=== PATIENT | female | born 1985 | race Caucasian/White ===

== ENCOUNTER 2023-02-09 01:11 | Emergency (ER) | payer MEDICAID, SELFPAY ==
[2023-02-09 01:22] VITALS: BP 167/92; PULSE 101; RESP 18; TEMP 36.6; O2SAT 98; BMI 29.2
--- NOTE | 2023-02-09 01:48 | RAD_ITS ---
INDICATION: pain EXAMINATION/TECHNIQUE: X-RAY - RIGHT XR Foot Min 3 Views 3 VIEWS COMPARISON: None FINDINGS: SOFT TISSUES: No soft tissue swelling or gas. No radiopaque foreign body. BONES/JOINTS: No acute fracture or subluxation.. Normal alignment. Preservation of the joint space. Small calcaneal Achilles enthesophyte. Minimal degenerative osteophyte formation at the proximal fifth interphalangeal joint. No sclerotic or destructive changes observed. RAD/Foot min 3 Views IMPRESSION: No acute finding. Small calcaneal Achilles enthesophyte.. Electronically Signed: Flavio Warner MD at 4:06 EST ,
--- NOTE | 2023-02-09 01:54 | EDS_ITS ---
HPI History of Present Illness Chief Complaint: Upper Extremity Injury Informant: patient Narrative Narrative: Patient presents to the ER 1:30 AM. She states she has had pain in her right foot for the past month. She denies any known injury. Hurts more to walk on that hurts without walking. For the last 3 to 4 days, she has had pain and numbness in her right forearm and into the hand, mostly at the radial aspect of her hand/fingers. Denies any known injury. Denies any neck pain, headache, vision trouble, facial neurologic symptoms, speech trouble. No paresthesias or weakness in the lower extremities. 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 She is on warfarin. She refers to [facility] when she states she was diagnosed with blood clots, but she does not know if she had DVT or arterial clot that led to amputation. She is a type I diabetic. She had an insulin pump that broke 3 to 4 days ago, and she states her glucose meter also broke so she has not been able to check her blood sugar recently. She states her was transferred here with regards to her job which is why they moved here 2 weeks ago, she saw PCP and a corporate travel manager for these issues in [place], but even though she has been there for 2 weeks has not researched any new physicians at all yet. [facility] Medical History (Updated 02/09/23 @ 05:[address] Babar Ribera MD) Abnormal angiogram HTN (hypertension) Hyperlipidemia Peripheral artery disease Type 1 diabetes mellitus Home Medications aspirin 81 mg tablet,delayed release (Adult Low Dose Aspirin) 81 mg PO DAILY 02/09/23 [History Last Taken Unknown] atorvastatin 40 mg tablet 40 mg PO DAILY 02/09/23 [History Last Taken Unknown] cyclobenzaprine 10 mg tablet 10 mg PO BID PRN muscle spasm 02/09/23 [History Last Taken Unknown] esomeprazole magnesium 20 mg capsule,delayed release 20 mg PO DAILY 02/09/23 [History Last Taken Unknown] metoprolol succinate 100 mg tablet,extended release 24 hr 100 mg PO DAILY 02/09/23 [History Last Taken Unknown] oxycodone-acetaminophen 5 mg-325 mg tablet 1 tab PO Q6H PRN PRN Pain 4 days #16 TABLETS 02/09/23 [Rx Last Taken Unknown] pantoprazole 40 mg granules delayed-release for susp in packet 40 mg PO DAILY 02/09/23 [History Last Taken Unknown] pregabalin 300 mg capsule (Lyrica) 300 mg PO BID 02/09/23 [History Last Taken Unknown] warfarin 5 mg tablet 15 mg PO DAILY 02/09/23 [History Last Taken 02/08/23] zolpidem 10 mg tablet 10 mg PO QHS PRN insomnia 02/09/23 [History Last Taken Unknown] Allergy/AdvReac Type Severity Reaction Status Date / Time morphine Allergy Intermediate Rash Verified 02/09/23 01:13 orange Allergy Rash Verified 02/09/23 01:13 Surgical History S/P BKA (below knee amputation) unilateral Social History Smoking Status: Never smoker ROS ROS ED Constitutional Constitutional ED: Denies chills or fever(s) Eyes Eyes: Denies change in vision or diplopia ENT ENT ED: Denies rhinorrhea or sore throat Cardiovascular Cardiovascular: Denies chest pain or palpitations Respiratory/Chest Respiratory/Chest: Denies cough or dyspnea Gastrointestinal Gastrointestinal: Denies abdominal pain, diarrhea, nausea or vomiting Genitourinary Genitourinary ED: Denies dysuria or hematuria Musculoskeletal Musculoskeletal: Reports extremity pain; Denies neck pain Integumentary Denies Abrasions, rash or wounds Neurologic Neurologic: Reports paresthesias RUE; Denies weakness Psychiatric Psychiatric: Denies suicidal thoughts EXAM Physical Exam Const Vital Signs: 02/09/23 01:22 Temperature 97.9 F Temperature Source Oral Pulse Rate 101 H Respiratory Rate 18 Blood Pressure 167/92 H Blood Pressure Mean 117 Pulse Ox 98 Oxygen Delivery Method Room Air Positive well nourished and well developed General Appearance ED: well developed and NAD HEENT Reports moist mucous membranes normocephalic and atraumatic Eyes PERRL and EOMs intact bilaterally Neck full ROM and supple Resp normal respiratory effort and clear to auscultation bilaterally Cardio regular rate, regular rhythm and no murmurs GI non-tender and non-distended Auscultation: normoactive bowel sounds Palpation: soft Back/Spine normal ROM and normal to inspection General Back: other FROM Extremity normal to inspection and full ROM Extremity Narrative: Right upper extremity: Superficial skin level tenderness with normal inspection right forearm and thumb and index finger. Sensation intact. Motor intact. All compartments soft and nondistended. Full range of motion of all joints without apparent discomfort. Status post left BKA with prosthesis in place. Right lower extremity: All compartment soft and nondistended, full range of motion. Normal coloration, pink. Brisk cap refill 2 seconds distally all toes. No signs of any necrotic tissue or wounds. Possibly mildly tender, patient cannot tell if it is worse or not with palpation, right great toe and fifth metatarsal laterally. Plantar foot normal on inspection. Not able to easily palpate dorsalis pedis pulse on right foot. Easily dopplerable. 2+/4 right radial pulse. General Extremety ED: Negative for edema General Extremity: Negative for edema Neuro oriented x3, no focal motor deficits and no sensory deficits noted Sensorium / Orientation: alert Motor Exam: strength 5/5 throughout Psych thought process normal Mood & Affect: anxious Skin no wounds Rashes: no rashes MDM MDM MDM Narrative Medical decision making narrative: At this time there is no objective evidence of any acute ischemic limb. Her exam is very benign and she is very anxious. Stress fracture of bones of the right foot in differential so x-ray obtained, 3 views on my interpretation negative for anything acute. She is perfusing toes well. With regards to her right upper extremity, radiculopathy or peripheral neuropathy with being in the differential here, but it is very difficult to evaluate her. She states that hurts both volarly and dorsally in the forearm, but she has more objective tenderness dorsally than anywhere else. A lot of times when I palpate different areas she cannot tell if it hurts worse or if it just hurts. She is neurovascularly intact distally objectively. All compartments are soft and nondistended. I do not think this is cerebral in etiology. Given her history of diabetes and the fact that she has no idea what her blood sugars have been, I did do some basic labs with an INR, which she last had checked 1-2 months ago, and gave her some IV fluids and something for pain. Initially offered her an oral Percocet but she refused this and wanted something IV, I gave her fentanyl. She wanted something more than that on reevaluation. Labs were delayed because she was a very difficult stick, and then because her blood was very lipemic, and lab requested a redraw. I reviewed her results. Therapeutic on her warfarin. She has mild hyperkalemia but this is due to moderate hemolysis she does not have acute renal insufficiency. She was hyperglycemic which we treated with insulin according to her sliding scale, this did come down some, she was given another dose of fentanyl for pain I see no reason to give her medicines like hydromorphone for basically what is not verifiable pain at this time, she does not appear to have be having acute ischemic pain or claudication. The pain in her right upper extremity suggests radiculopathy or peripheral neuropathy. I advised her I was happy to give her a second dose of fentanyl and prescribe her some short course of pain medication, and refer her to primary care, cardiology, and vascular, all of whom she saw in [place]. She is appreciative of that and is agreeable with this plan. Lab Data Attestation: I reviewed the patient's lab results. Labs: Impressions Foot X-Ray 02/09/23 01:48 IMPRESSION: No acute finding. Small calcaneal Achilles enthesophyte.. Electronically Signed: Flavio Warner MD at 4:06 EST Reading Location ID and State: [facility] / [place] Tel , Service support , 02/09/23 01:48 Foot min 3 Views [RAD] Stat Laboratory Results 02/09/23 02/09/23 02/09/23 03:20 03:35 04:05 WBC 7.0 RBC 6.23 H Hgb 15.9 H Hct 44.7 MCV 71.7 L MCH 25.5 L MCHC 35.6 RDW Std Deviation 49.1 H RDW Coeff of Gerard 20.8 H Plt Count 250 MPV TNP Immature Gran % (Auto) 0.300 Neut % (Auto) 69.4 Lymph % (Auto) 23.6 [place] % (Auto) 5.0 Eos % (Auto) 1.0 Baso % (Auto) 0.7 Absolute Neuts (auto) 4.9 Absolute Lymphs (auto) 1.65 Nucleated RBC % 0 Differential Comment SCANNED Anisocytosis 1+ PT 25.0 H INR 2.2 Sodium 130 L Potassium 5.2 H Chloride 96 L Carbon Dioxide 23.0 Anion Gap 11 BUN 10 Creatinine 0.75 Estim Creat Clear Calc 97.08 Est GFR (MDRD) Af Amer 112 Est GFR (MDRD) Non-Af 93 BUN/Creatinine Ratio 13.3 Glucose 415 H Calcium 8.3 L POC Glucose 389 H Discharge Plan Triage Chief Complaint: Upper Extremity Injury ED Provider: Babar Ribera Dx/Rx/DC Orders Clinical Impression: Neuropathic pain of upper extremity, History of peripheral arterial disease, Pain in right foot, Warfarin-induced coagulopathy Instructions: Treating Peripheral Neuropathy Prescriptions: New oxycodone-acetaminophen [oxycodone-acetaminophen] 5-325 mg tablet 1 tab PO Q6H PRN PRN (Reason: Pain) 4 Days Qty: 16 0RF No Action warfarin 5 mg tablet 15 mg PO DAILY cyclobenzaprine 10 mg tablet 10 mg PO BID PRN (Reason: muscle spasm) atorvastatin 40 mg tablet 40 mg PO DAILY pregabalin [Lyrica] 300 mg capsule 300 mg PO BID pantoprazole [address] for susp in packet 40 mg PO DAILY zolpidem 10 mg tablet 10 mg PO QHS PRN (Reason: insomnia) metoprolol succinate 100 mg tablet extended release 24 hr 100 mg PO DAILY esomeprazole magnesium 20 mg capsule,delayed release(DR/EC) 20 mg PO DAILY aspirin [Adult Low Dose Aspirin] 81 mg tablet,delayed release (DR/EC) 81 mg PO DAILY Primary Care Provider: Care Physician,No Primary Referrals: Rehana Tristan MD [Med Staff - Resource Center Teacher] - (primary care) Sergio Sutherland MD [Med Staff - Active Staff] - Judith Krishna MD [Med Staff - Active Staff] - Care Physician,No Primary [Primary Care Provider] - Disposition Disposition: Home, Self Care
[2023-02-09 03:28] LABS: Absolute Lymphocyte Count 1.65 X10^3/uL (0.83-4.51); Absolute Neutrophil Count 4.9 X10^3/uL (2.0-7.7); Basophil# 0.05 X10^3/uL; Basophil% 0.7 % (0-1); Eosinophil# 0.07 X10^3/uL; Hematocrit 44.7 % (37-47); Hemoglobin 15.9 g/dL (12.0-15.0); Lymphocyte # 1.65 X10^3/ul (0.83-4.51); Lymphocyte % 23.6 % (19-41); Mean Corp Hgb Conc 35.6 g/dL (32-36); Mean Corpuscular Hgb 25.5 pg (27.0-32.0); Mean Corpuscular Volume 71.7 fL (81-99); Monocyte# 0.35 X10^3/uL; NRBC Flagged by Analyzer 0 % (0-5); Neutrophil # 4.86 X10^3/uL (2.7-7.7); Neutrophil % 69.4 % (47-70); POSITIVE MORPHOLOGY YES; Platelet Count 250 K/mm3 (150-450); RBC Distribution Width CV 20.8 % (11.6-14.6); RBC Distribution Width SD 49.1 fl (35.1-43.9); Red Blood Count 6.23 M/mm3 (4.2-5.4)
[2023-02-09] MEDS: 0.9% Normal Saline (500mL Bag) 500 ML 999 ML IV (03:32)
[2023-02-09 03:35] LABS: International Normalized Ratio 2.2
[2023-02-09 03:55] LABS: Bedside Glucose 389 mg/dL (74-106)
[2023-02-09] MEDS: fentaNYL 100 MCG/2 ML Ampul 50 MCG IV (04:22)
[2023-02-09] MEDS: Insulin Lispro 100 UNIT/ML INSULN.PEN 20 UNIT SC (04:24)
[2023-02-09 04:27] LABS: Anisocytosis 1+; Differential Comment SCANNED
[2023-02-09 04:46] LABS: Anion Gap 11 (5-15); BUN 10 mg/dL (7-18); BUN/Creat Ratio 13.3 RATIO (10-20); Calcium,Total 8.3 mg/dL (8.5-10.1); Chloride 96 mmol/L (98-107); Creatinine, Serum 0.75 mg/dL (0.55-1.02); EST Glomerular Filtration Rate 93 mL/min (>60); Est Glom Filt Rate - Afr Amer 112 mL/min (>60); Estimated Creatinine Clearance 97.08 ml/min; Glucose 415 mg/dL (74-106); Potassium 5.2 mmol/L (3.5-5.1); Sodium Level 130 mmol/L (136-145)
[2023-02-09 05:17] LABS: Bedside Glucose 368 mg/dL (74-106)
[2023-02-09] MEDS: fentaNYL 100 MCG/2 ML Ampul 75 MCG IV (05:41)
[2023-02-09 05:44] VITALS: BP 170/94; PULSE 90; RESP 15; O2SAT 98
== END 2023-02-09 05:52 | disposition home or self-care (01) ==
PROVIDERS: Emergency Provider Emergency Medicine; Visit Provider Emergency Medicine
DX: E10.40 Type 1 diabetes mellitus with diabetic neuropathy, unspecified (principal); E10.51 Type 1 diabetes mellitus with diabetic peripheral angiopathy without gangrene; M79.671 Pain in right foot; E78.5 Hyperlipidemia, unspecified; I10 Essential (primary) hypertension; R79.1 Abnormal coagulation profile; Z79.82 Long term (current) use of aspirin; Z79.899 Other long term (current) drug therapy; Z79.01 Long term (current) use of anticoagulants
CPT/HCPCS: 73630; 80048; 82962; 85025; 85610; 96374; 96376; 99283; A4216

== ENCOUNTER 2023-02-28 20:35 | Emergency (ER) | payer MEDICAID, SELFPAY ==
[2023-02-28 20:40] VITALS: BP 210/102; PULSE 79; RESP 18; TEMP 36; O2SAT 99; BMI 27.8
--- NOTE | 2023-02-28 21:07 | RAD_ITS ---
STUDY: X-RAY - LUMBAR SPINE REASON FOR EXAM: Female, 37 years old. trauma TECHNIQUE: 3 view(s) of the lumbar spine were obtained. COMPARISON: None FINDINGS: Normal lumbar lordosis. There is no substantial scoliosis. There is a normal alignment of the vertebrae. Normal vertebral bodies and endplates. Normal disc space heights. The soft tissue structures are unremarkable. RAD/Lumbar Spine 2 or 3 Views IMPRESSION: Normal x-ray examination of the lumbar spine. Electronically Signed: Feliberto Reyes MD at 22:37 EST ,
--- NOTE | 2023-02-28 21:07 | EKG12_ITS ---
Test Reason : DYSRHYTHMIA Blood Pressure : / mmHG Vent. Rate : 072 BPM Atrial Rate : 072 BPM P-R Int : 118 ms QRS Dur : 088 ms QT Int : 376 ms P-R-T Axes : 053 070 056 degrees QTc Int : 411 ms Normal sinus rhythm Normal ECG Confirmed by JENNIFER HANNON, AUTUMN ([id number]), associate entertainment editor ОЛЬГА MEJIA ([id number]) on 03/02/2023 9:22:03 AM Referred By: Confirmed By:AUTUMN RODRIGUEZ MD
--- NOTE | 2023-02-28 21:09 | EDS_ITS ---
HPI History of Present Illness Chief Complaint: Back Informant: patient Narrative Narrative: Patient presents with primary complaint of lower back pain. Patient states that about a week ago she slipped and fell onto her buttock. She hurt her back. It has been sore since. No new numbness tingling or weakness. She states she slipped because she has a left BKA and sometimes has instability. She is also had sciatica before. No fevers or chills. However the patient also has other issues. She recently just moved. Her insulin pump broke. She has been out of also all of her medicines for 3 days. This includes her Coumadin. She has not been using insulin subcu. Her meter has been reading high. She is also out of her metoprolol. 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 Patient had recently moved from [place]. I note that she was here about 2- 1/2 weeks ago. Her glucose pump is broken then to. But she tells me it just broke 3 days ago. She may have had a second pump. She does not have a local primary doctor. [facility] Medical History (Updated 02/28/23 @ 23:[address] Abad Dickson MD) Abnormal angiogram HTN (hypertension) Hyperlipidemia Peripheral artery disease Type 1 diabetes mellitus Home Medications aspirin 81 mg tablet,delayed release (Adult Low Dose Aspirin) 81 mg PO DAILY 02/09/23 [History Last Taken Unknown] atorvastatin 40 mg tablet 40 mg PO DAILY 02/09/23 [History Last Taken Unknown] cyclobenzaprine 10 mg tablet 10 mg PO BID PRN muscle spasm 02/09/23 [History Last Taken Unknown] esomeprazole magnesium 20 mg capsule,delayed release 20 mg PO DAILY 02/09/23 [History Last Taken Unknown] metoprolol succinate 100 mg tablet,extended release 24 hr 100 mg PO DAILY 02/09/23 [History Last Taken Unknown] pantoprazole 40 mg granules delayed-release for susp in packet 40 mg PO DAILY 02/09/23 [History Last Taken Unknown] pregabalin 300 mg capsule (Lyrica) 300 mg PO BID 02/09/23 [History Last Taken Unknown] warfarin 5 mg tablet 15 mg PO DAILY 02/09/23 [History Last Taken 02/08/23] zolpidem 10 mg tablet 10 mg PO QHS PRN insomnia 02/09/23 [History Last Taken Unknown] insulin lispro 100 unit/mL subcutaneous cartridge (Humalog U-100 Insulin) 1 - 100 unit subcut DAILY 02/28/23 [History Last Taken Unknown] atorvastatin 40 mg tablet 40 mg PO DAILY #30 tabs 03/01/23 [Rx Last Taken Unknown] cyclobenzaprine 10 mg tablet 10 mg PO TID PRN Muscle Spasm #20 TABLETS 03/01/23 [Rx Last Taken Unknown] esomeprazole magnesium 20 mg capsule,delayed release (Nexium 24HR) 20 mg PO DAILY #30 caps 03/01/23 [Rx Last Taken Unknown] hydrocodone-acetaminophen 5-325mg 5mg-325mg 1 tab PO Q6H PRN PRN Pain 3 days #10 TABLETS 03/01/23 [Rx Last Taken Unknown] insulin lispro 100 unit/mL subcutaneous pen 10 unit (0.1 mL) subcut TID #15 mL 03/01/23 [Rx Last Taken Unknown] metoprolol succinate 100 mg tablet,extended release 24 hr (Toprol XL) 100 mg PO DAILY #30 tabs 03/01/23 [Rx Last Taken Unknown] pregabalin 300 mg capsule 300 mg PO BID #60 caps 03/01/23 [Rx Last Taken Unknown] warfarin 5 mg tablet 15 mg (3 x 5 mg) PO DAILY #90 tabs 03/01/23 [Rx Last Taken Unknown] Allergy/AdvReac Type Severity Reaction Status Date / Time morphine Allergy Intermediate Rash Verified 02/28/23 20:36 orange Allergy Rash Verified 02/28/23 20:36 Surgical History S/P BKA (below knee amputation) unilateral Social History Smoking Status: Never smoker ROS ROS ED Constitutional Constitutional ED: Denies chills or fever(s) Eyes Eyes: Denies change in vision ENT ENT ED: Denies rhinorrhea or sore throat Cardiovascular Cardiovascular: Denies chest pain or palpitations Respiratory/Chest Respiratory/Chest: Denies dyspnea or sputum Gastrointestinal Gastrointestinal: Reports nausea and other Details: Patient states she has occasional nausea but that might be from discomfort. She does not feel like this is DKA. ; Denies abdominal pain or vomiting Genitourinary Genitourinary ED: Reports urinary frequency; Denies dysuria or hematuria Musculoskeletal Musculoskeletal: Reports back pain Integumentary Denies rash Neurologic Neurologic: Reports paresthesias; Denies headache(s) Endocrine Endocrinology: Denies polydipsia or polyuria Hematologic/Lymphatic Hematologic/Lymphatic: Denies easy bleeding or easy bruising Allergic/Immunologic Allergic/Immunologic ED: Denies urticaria EXAM Physical Exam Narrative Exam Narrative: CONSTITUTIONAL: Patient is nontoxic in appearance. The patient looks comfortable. HEENT: No notable trauma. Mucous membranes do look dry. No sinus tenderness. No indication of pain with swallowing. No erythema. EYES: No conjunctival injection. No proptosis. CARDIOVASCULAR: Regular rate. Regular rhythm. No notable murmur. No JVD. RESPIRATORY: No respiratory distress. Breathing is unlabored. No wheezes. No rhonchi. No rales. No pain with a deep breath. She is not tachypneic. GASTROINTESTINAL: Not distended. Bowel sounds are normal. No tenderness. No guarding. No rebound. No palpable mass. No bruit. GENITOURINARY: No tenderness over the bladder. No CVA tenderness. MUSCULOSKELETAL: No swelling or trauma. She does have some tenderness to the lower lumbar area central as well as both sides. NEUROLOGICAL: Patient is alert and appropriate. No focal deficit noted. SKIN: No noted rashes. No diaphoresis. PSYCHIATRIC: Patient is calm. Mood is appropriate. Const Vital Signs: 02/28/23 20:40 02/28/23 22:32 02/28/23 22:34 Temperature 96.8 F L Temperature Source Temporal Pulse Rate 79 68 Respiratory Rate 18 16 Blood Pressure 210/102 H 180/96 H Blood Pressure Mean 138 124 Pulse Ox 99 98 Oxygen Delivery Method Room Air MDM MDM MDM Narrative Medical decision making narrative: My independent interpretation of the patient's three-view x-ray of the lumbar spine shows no sign of acute fracture or dislocation. Mild straightening. Final reading is pending. Patient's CBC shows mild elevation in the hemoglobin that may be due to hemoconcentration. Acetone level shows a small amount. But she also has not really been eating today. Patient's coagulation studies and metabolic panel were canceled due to difficulty running them. They are being redrawn at this time. Final reading of lumbar spine did come back negative. We were having trouble getting the patient's labs back. Her blood sugar read high at home. This is normally over 350 and occasionally over 500. But when we checked it it was only about 308. I will get her some insulin here. She has gotten IV fluids. We are pending her metabolic panel. Since urine out this is showed no sign of infection. She did have increased glucose and increase of ketones. Basic metabolic panel shows elevated glucose at 408 which is higher than our stick. Sodium is slightly low but some of this is factitious. Her anion gap and bicarb are normal leaning heavily against DKA. She does have some ketosis likely from not eating. Her lactate is pending at this time. Patient's INR is normal at 0.7. Patient's lactic acid level is not able to be obtained. They have tried to run it. Because the patient has high cholesterol her serum is to like hemic to get an accurate reading. They will try to run it again but there are questions of its accuracy. Since the patient is eating and drinking, has normal bicarb and gap, I do not think this need to be needed at this time. We will get her something for her pains. I will write for her medications. But she is strongly encouraged to call to get an appointment with her primary care physician. She has been in this area for about 5 weeks with multiple complex medical illnesses. I will help her with prescriptions but she still needs ongoing primary care and specialty follow-up. I will refer her to the same physician she was referred to on her last visit. Patient's lactate is not able to be run. She has pain and we will get her meds for this. But she did fall about a week ago. She is eating and drinking without vomiting. She has no gap. Bicarb is normal. I do not think this represents DKA even though she has slight ketones. Lab Data Attestation: I reviewed the patient's lab results. Labs: Laboratory Results - last 24 hr 02/28/23 02/28/23 02/28/23 21:34 22:04 22:48 WBC 5.1 RBC 5.96 H Hgb 15.1 H Hct 44.0 MCV 73.8 L MCH 25.3 L MCHC 34.3 RDW Std Deviation 45.6 H RDW Coeff of Gerard 18.2 H Plt Count 183 MPV 11.2 Immature Gran % (Auto) 0.400 Neut % (Auto) 51.9 Lymph % (Auto) 40.2 [place] % (Auto) 5.3 Eos % (Auto) 1.2 Baso % (Auto) 1.0 Absolute Neuts (auto) 2.6 Absolute Lymphs (auto) 2.04 Nucleated RBC % 0 PT Cancelled 10.1 L INR Cancelled 0.7 Sodium Cancelled 131 L Potassium Cancelled 4.1 Chloride Cancelled 99 Carbon Dioxide Cancelled 23.0 Anion Gap Cancelled 9 BUN Cancelled 10 Creatinine Cancelled 0.52 L Estim Creat Clear Calc Cancelled 140.01 Est GFR (MDRD) Af Amer Cancelled 170 Est GFR (MDRD) Non-Af Cancelled 140 BUN/Creatinine Ratio Cancelled 19.1 Glucose Cancelled 408 H Lactic Acid Cancelled Calcium Cancelled 7.6 L Urine Color Straw Urine Clarity Clear Urine pH 6.5 Ur Specific [place] 1.010 Urine Protein 30 H Urine Glucose (UA) 1000 H Urine Ketones 50 H Urine Occult Blood Negative Urine Nitrite Negative Urine Bilirubin Negative Urine Urobilinogen Normal Ur Leukocyte Esterase Negative Urine RBC 0 SEEN Urine WBC 0-5 SEEN Ur Squamous Epith Cells 0-5 SEEN Urine Bacteria 0 SEEN Urine Mucus 0 SEEN Acetone Level SMALL H POC Glucose 02/28/23 23:07 WBC RBC Hgb Hct MCV MCH MCHC RDW Std Deviation RDW Coeff of Gerard Plt Count MPV Immature Gran % (Auto) Neut % (Auto) Lymph % (Auto) [place] % (Auto) Eos % (Auto) Baso % (Auto) Absolute Neuts (auto) Absolute Lymphs (auto) Nucleated RBC % PT INR Sodium Potassium Chloride Carbon Dioxide Anion Gap BUN Creatinine Estim Creat Clear Calc Est GFR (MDRD) Af Amer Est GFR (MDRD) Non-Af BUN/Creatinine Ratio Glucose Lactic Acid Calcium Urine Color Urine Clarity Urine pH Ur Specific [place] Urine Protein Urine Glucose (UA) Urine Ketones Urine Occult Blood Urine Nitrite Urine Bilirubin Urine Urobilinogen Ur Leukocyte Esterase Urine RBC Urine WBC Ur Squamous Epith Cells Urine Bacteria Urine Mucus Acetone Level POC Glucose 305 H Radiography Diagnostic Testing: Clinical Impression(s) from Imaging Studies Lumbar Spine X-Ray 02/28/23 21:07 IMPRESSION: Normal x-ray examination of the lumbar spine. Electronically Signed: Feliberto Reyes MD at 22:37 EST , EKG Initial EKG: Comments: My independent interpretation of the patient's EKG shows a n ormal sinus rhythm with a rate of 72. No ectopy. No acute ST elevation or depression. [place] interval, QRS duration and QTc are normal. Discharge Plan Triage Chief Complaint: Back Other Complaint: Lower Extremity Injury ED Provider: Abad Dickson Dx/Rx/DC Orders Clinical Impression: History of diabetes mellitus, type I, Lower back pain, Fall from slip, trip, or stumble, Hyperglycemia, Diabetic neuropathy Instructions: ED Back Pain (Acute or Chronic), Diabetic Neuropathy Prescriptions: New cyclobenzaprine 10 mg tablet 10 mg PO TID PRN (Reason: Muscle Spasm) Qty: 20 0RF atorvastatin 40 mg tablet 40 mg PO DAILY Qty: 30 0RF esomeprazole magnesium [Nexium 24HR] 20 mg capsule,delayed release(DR/EC) 20 mg PO DAILY Qty: 30 0RF metoprolol succinate [Toprol XL] 100 mg tablet extended release 24 hr 100 mg PO DAILY Qty: 30 0RF pregabalin 300 mg capsule 300 mg PO BID Qty: 60 0RF warfarin 5 mg tablet 15 mg PO DAILY Qty: 90 0RF insulin lispro 100 unit/mL insulin pen 10 unit subcut TID Qty: 15 0RF Rx Instructions: follow your sliding scale hydrocodone-acetaminophen [hydrocodone-acetaminophen] 5-325 mg tablet 1 tab PO Q6H PRN PRN (Reason: Pain) 3 Days Qty: 10 0RF No Action warfarin 5 mg tablet 15 mg PO DAILY Patient Comments: Out of medication. cyclobenzaprine 10 mg tablet 10 mg PO BID PRN (Reason: muscle spasm) Patient Comments: Out of medication. atorvastatin 40 mg tablet 40 mg PO DAILY Patient Comments: Out of medication. pregabalin [Lyrica] 300 mg capsule 300 mg PO BID Patient Comments: Out of medication. pantoprazole [address] for susp in packet 40 mg PO DAILY Patient Comments: Out of medication. zolpidem 10 mg tablet 10 mg PO QHS PRN (Reason: insomnia) Patient Comments: Out of medication. metoprolol succinate 100 mg tablet extended release 24 hr 100 mg PO DAILY Patient Comments: Out of medication. esomeprazole magnesium 20 mg capsule,delayed release(DR/EC) 20 mg PO DAILY Patient Comments: Out of medication. aspirin [Adult Low Dose Aspirin] 81 mg tablet,delayed release (DR/EC) 81 mg PO DAILY Patient Comments: Out of medication. Humalog U-100 Insulin 100 unit/mL cartridge 1 - 100 unit subcut DAILY Patient Comments: Pump. Currently pump is broken and is out of medication. Primary Care Provider: Care Physician,No Primary Referrals: Rehana Tristan MD [Med Staff - Laboratory Development Technician] - As soon as possible (Please ca ll in the morning for an appointment as soon as possible.) Sergio Sutherland MD [Med Staff - Active Staff] - 1-2 Weeks Judith Krishna MD [Med Staff - Active Staff] - As soon as possible Care Physician,No Primary [Primary Care Provider] - Disposition Disposition: Home, Self Care
[2023-02-28 21:42] LABS: Absolute Lymphocyte Count 2.04 X10^3/uL (0.83-4.51); Absolute Neutrophil Count 2.6 X10^3/uL (2.0-7.7); Basophil# 0.05 X10^3/uL; Eosinophil# 0.06 X10^3/uL; Eosinophils% 1.2 % (0-5); Hemoglobin 15.1 g/dL (12.0-15.0); Lymphocyte # 2.04 X10^3/ul (0.83-4.51); Lymphocyte % 40.2 % (19-41); Mean Corp Hgb Conc 34.3 g/dL (32-36); Mean Corpuscular Hgb 25.3 pg (27.0-32.0); Mean Corpuscular Volume 73.8 fL (81-99); Mean Platelet Vol. 11.2 fl (6.2-12.0); Monocyte# 0.27 X10^3/uL; Monocyte% 5.3 % (0-10); NRBC Flagged by Analyzer 0 % (0-5); Neutrophil # 2.64 X10^3/uL (2.7-7.7); Neutrophil % 51.9 % (47-70); Platelet Count 183 K/mm3 (150-450); RBC Distribution Width CV 18.2 % (11.6-14.6); RBC Distribution Width SD 45.6 fl (35.1-43.9); Red Blood Count 5.96 M/mm3 (4.2-5.4); White Blood Count 5.1 K/mm3 (4.4-11.0)
[2023-02-28] MEDS: 0.9% Normal Saline (1000mL) 1,000 ML 1000 ML IV (21:42)
[2023-02-28] MEDS: Ondansetron 4 MG/2 ML Vial IV (21:43)
[2023-02-28 22:09] LABS: Bacteria 0 SEEN /hpf (None Seen); Mucous, Urine 0 SEEN /hpf (<or=2+); Red Blood Cells-Urine 0 SEEN /hpf (0-5)
[2023-02-28 22:32] VITALS: PULSE 68; RESP 16; O2SAT 98
[2023-02-28 22:34] VITALS: BP 180/96
[2023-02-28 22:48] LABS: Color, Urine Straw (Yellow); Glucose, Dipstick 1000 mg/dl (Normal); Ketone-Dipstick 50 mg/dl (Negative); Leukocyte Esterase-Dipstick Negative /ul (Negative); Nitrite-Dipstick Negative (Negative); Occult Blood-Urine Negative /ul (Negative); Protein-Dipstick 30 mg/dl (Negative); Urine Bilirubin Dipstick Negative (Negative); Urine Clarity Clear (Clear); Urine Urobilinogen Normal (Normal); Urine pH 6.5 (5.0 - 8.0)
[2023-02-28] MEDS: fentaNYL 100 MCG/2 ML Ampul 25 MCG IV (22:53)
[2023-02-28 22:54] LABS: Squamous Epithelial Cells - UA 0-5 SEEN /hpf (5-10); White Blood Cells 0-5 SEEN /hpf (0-5)
[2023-02-28 23:10] LABS: International Normalized Ratio 0.7; Prothrombin Time (Protime)PT. 10.1 SECONDS (11.7-14.9)
[2023-02-28 23:19] LABS: Anion Gap 9 (5-15); BUN 10 mg/dL (7-18); BUN/Creat Ratio 19.1 RATIO (10-20); Calcium,Total 7.6 mg/dL (8.5-10.1); Chloride 99 mmol/L (98-107); Creatinine, Serum 0.52 mg/dL (0.55-1.02); EST Glomerular Filtration Rate 140 mL/min (>60); Est Glom Filt Rate - Afr Amer 170 mL/min (>60); Estimated Creatinine Clearance 140.01 ml/min; Glucose 408 mg/dL (74-106); Potassium 4.1 mmol/L (3.5-5.1); Sodium Level 131 mmol/L (136-145)
[2023-02-28 23:25] LABS: Bedside Glucose 305 mg/dL (74-106)
[2023-02-28] MEDS: cycloBENZAPRine HCl 10 MG Tablet PO (23:35)
[2023-02-28] MEDS: Insulin Lispro 100 UNIT/ML INSULN.PEN 10 UNIT SC (23:35)
[2023-02-28] MEDS: Pregabalin 75 MG Capsule 150 MG PO (23:43)
[2023-03-01] MEDS: fentaNYL 100 MCG/2 ML Ampul 25 MCG IV (00:43)
[2023-03-01] MEDS: Ketorolac 15 MG/ML Vial IV (00:43)
[2023-03-01 00:49] VITALS: BP 170/65; PULSE 69; RESP 17; O2SAT 98
== END 2023-03-01 00:50 | disposition home or self-care (01) ==
PROVIDERS: Emergency Provider Emergency Medicine; Visit Provider Emergency Medicine
DX: E10.65 Type 1 diabetes mellitus with hyperglycemia (principal); E10.40 Type 1 diabetes mellitus with diabetic neuropathy, unspecified; Z79.4 Long term (current) use of insulin; M54.50 Low back pain, unspecified; Z96.41 Presence of insulin pump (external) (internal); E78.00 Pure hypercholesterolemia, unspecified; I10 Essential (primary) hypertension; Z79.82 Long term (current) use of aspirin; Z79.899 Other long term (current) drug therapy; Z79.01 Long term (current) use of anticoagulants
CPT/HCPCS: 83605; 72100; 80048; 81001; 82009; 82962; 85025; 85610; 93005; 96361; 96374; 96375; 96376; 99284; J7030; A4216; J2405

== ENCOUNTER 2023-03-12 13:34 | Inpatient (IN) | payer MEDICAID, SELFPAY ==
[2023-03-12] VITALS (13 sets, daily range): BP systolic 131–170; BP diastolic 71–101; PULSE 108–140; RESP 17–34; TEMP 35.9–36.9; O2SAT 99–100; BMI 29.0; BMI 23.1
--- NOTE | 2023-03-12 13:50 | EKG12_ITS ---
Test Reason : GENERAL Blood Pressure : / mmHG Vent. Rate : 124 BPM Atrial Rate : 124 BPM P-R Int : 134 ms QRS Dur : 086 ms QT Int : 326 ms P-R-T Axes : 078 079 262 degrees QTc Int : 468 ms Sinus tachycardia Right atrial enlargement T wave abnormality, consider inferior ischemia T wave abnormality, consider anterolateral ischemia Abnormal ECG Confirmed by CHRISTIANO HANNON, ASHUTOSH ([id number]), staff editor ОЛЬГА MEJIA ([id number]) on 03/20/2023 6:46:47 AM Referred By: Confirmed By:JUSTIN ALVARADO MD
[2023-03-12] MEDS: 0.9% Normal Saline (1000mL) 1,000 ML 1000 ML IV ×3 (14:00→17:09)
[2023-03-12 14:02] LABS: Bedside Glucose 489 mg/dL (74-106)
[2023-03-12 14:48] LABS: Bacteria 0 SEEN /hpf (None Seen); Mucous, Urine 0 SEEN /hpf (<or=2+); White Blood Cells 0 SEEN /hpf (0-5)
[2023-03-12 14:50] LABS: Color, Urine Yellow (Yellow); Glucose, Dipstick 1000 mg/dl (Normal); Ketone-Dipstick 150 mg/dl (Negative); Leukocyte Esterase-Dipstick Negative /ul (Negative); Nitrite-Dipstick Negative (Negative); Occult Blood-Urine 250 /ul (Negative); Protein-Dipstick 30 mg/dl (Negative); Specific Gravity, Urine 1.025 (1.002-1.030); Urine Bilirubin Dipstick Negative (Negative); Urine Clarity Sl. Cloudy (Clear); Urine Urobilinogen Normal (Normal)
[2023-03-12 14:50] LABS: Absolute Lymphocyte Count 1.72 X10^3/uL (0.83-4.51); Absolute Neutrophil Count 8.8 X10^3/uL (2.0-7.7); Basophil# 0.02 X10^3/uL; Basophil% 0.2 % (0-1); Eosinophil# 0.03 X10^3/uL; Eosinophils% 0.3 % (0-5); Hematocrit 53.4 % (37-47); Lymphocyte # 1.72 X10^3/ul (0.83-4.51); Lymphocyte % 15.5 % (19-41); Mean Corp Hgb Conc 33.7 g/dL (32-36); Mean Corpuscular Hgb 24.8 pg (27.0-32.0); Mean Corpuscular Volume 73.7 fL (81-99); Mean Platelet Vol. 10.7 fl (6.2-12.0); Monocyte# 0.52 X10^3/uL; Monocyte% 4.7 % (0-10); NRBC Flagged by Analyzer 0 % (0-5); Neutrophil # 8.75 X10^3/uL (2.7-7.7); Neutrophil % 78.9 % (47-70); Platelet Count 447 K/mm3 (150-450); RBC Distribution Width CV 19.3 % (11.6-14.6); RBC Distribution Width SD 47.1 fl (35.1-43.9); Red Blood Count 7.25 M/mm3 (4.2-5.4); White Blood Count 11.1 K/mm3 (4.4-11.0)
--- NOTE | 2023-03-12 14:50 | EX.ED.DYSGE1 ---
HPI History of Present Illness Chief Complaint: Hyperglycemia Informant: patient Onset/Context/Timing Onset: Days (4) Context: Gradual Onset Timing: Continuous Quality: Sharp Location: Chest and back Worsened by: Movement Relieved by: Nothing Narrative Narrative: Patient presents with generalized weakness that has been getting worse over the past 4 days. Patient states she has some pain in her chest and back. Patient describes it as sharp. Patient states it is worse with certain movements. Patient has a history of diabetes and states she has been unable to to check her blood sugars for the past 4 days. Patient admits to some nausea and vomiting. Patient denies any fevers or chills. Patient admits to some shortness of breath with this. [facility] Medical History Abnormal angiogram Chronic anticoagulation HTN (hypertension) Hyperlipidemia Peripheral artery disease Type 1 diabetes mellitus Home Medications aspirin 81 mg tablet,delayed release (Adult Low Dose Aspirin) 81 mg PO DAILY 02/09/23 [History Last Taken Unknown] pantoprazole 40 mg granules delayed-release for susp in packet 40 mg PO DAILY 02/09/23 [History Last Taken Unknown] zolpidem 10 mg tablet 10 mg PO QHS PRN insomnia 02/09/23 [History Last Taken Unknown] insulin lispro 100 unit/mL subcutaneous cartridge (Humalog U-100 Insulin) 1 - 100 unit subcut DAILY 02/28/23 [History Last Taken Unknown] atorvastatin 40 mg tablet 40 mg PO DAILY #30 tabs 03/01/23 [Rx Last Taken Unknown] cyclobenzaprine 10 mg tablet 10 mg PO TID PRN Muscle Spasm #20 TABLETS 03/01/23 [Rx Last Taken Unknown] esomeprazole magnesium 20 mg capsule,delayed release (Nexium 24HR) 20 mg PO DAILY #30 caps 03/01/23 [Rx Last Taken Unknown] hydrocodone-acetaminophen 5-325mg 5mg-325mg 1 tab PO Q6H PRN PRN Pain 3 days #10 TABLETS 03/01/23 [Rx Last Taken Unknown] insulin lispro 100 unit/mL subcutaneous pen 10 unit (0.1 mL) subcut TID #15 mL 03/01/23 [Rx Last Taken Unknown] metoprolol succinate 100 mg tablet,extended release 24 hr (Toprol XL) 100 mg PO DAILY #30 tabs 03/01/23 [Rx Last Taken Unknown] pregabalin 300 mg capsule 300 mg PO BID #60 caps 03/01/23 [Rx Last Taken Unknown] warfarin 5 mg tablet 15 mg (3 x 5 mg) PO DAILY #90 tabs 03/01/23 [Rx Last Taken Unknown] Allergy/AdvReac Type Severity Reaction Status Date / Time morphine Allergy Intermediate Rash Verified 02/28/23 20:36 orange Allergy Rash Verified 02/28/23 20:36 Surgical History S/P BKA (below knee amputation) unilateral Social History Smoking Status: Never smoker ROS ROS ED Constitutional Constitutional ED: Denies chills or fever(s) Eyes Eyes: Denies blurry vision or change in vision ENT ENT ED: Denies rhinorrhea or sore throat Cardiovascular Cardiovascular: Reports chest pain; Denies palpitations Respiratory/Chest Respiratory/Chest: Reports dyspnea; Denies cough Gastrointestinal Gastrointestinal: Reports nausea and vomiting Genitourinary Genitourinary ED: Denies dysuria or hematuria Musculoskeletal Musculoskeletal: Reports back pain; Denies neck pain Integumentary Denies abscess or rash Neurologic Neurologic: Denies headache(s) or weakness Allergic/Immunologic Allergic/Immunologic ED: Denies mouth swelling or urticaria EXAM Physical Exam Const Vital Signs: 03/12/23 13:34 03/12/23 14:55 03/12/23 14:55 Temperature 96.7 F L Temperature Source Temporal Pulse Rate 140 H 134 H Respiratory Rate 26 H 34 H Respiratory Effort Labored Respiratory Pattern Tachypnea Blood Pressure 131/88 H 139/101 H Blood Pressure Mean 102 113 Pulse Ox 100 100 Oxygen Delivery Method Room Air Room Air Positive well nourished and well developed General Appearance ED: well developed and NAD HEENT Reports dry mucous membranes Mouth ED: Yes dry mucous membranes Mouth: dry mucous membranes Neck supple and no JVD Resp normal respiratory effort and clear to auscultation bilaterally Cardio regular rhythm Rate: tachycardic GI non-tender and non-distended Palpation: soft Extremity General Extremety ED: Negative for edema or tenderness General Extremity: Negative for edema Neuro oriented x3, CN's II-XII intact bilaterally and no sensory deficits noted Sensorium / Orientation: alert Motor Exam: strength 5/5 throughout MDM MDM MDM Narrative Medical decision making narrative: Differential diagnosis includes DKA, dehydration, hyperglycemia, HHNC, urinary tract infection, sepsis, pneumonia, and pancreatitis. CBC will be obtained to assess for leukocytosis and anemia. Basic metabolic profile will be obtained to assess for electrolyte abnormality, hyperglycemia, and renal function. Serum lactate will be obtained to assess for sepsis. Serum acetone will be obtained to assess for DKA. Lipase will be obtained to assess for pancreatitis. Chest x-ray will be obtained to assess for pneumonia. Venous blood gas will be obtained to assess for acid-base status. EKG will be obtained to assess for cardiac dysrhythmia and cardiac ischemia. High-sensitivity troponin will be obtained to assess for cardiac ischemia. History & Record Review Additional record(s) reviewed:: Prior labs Lab Data Attestation: I reviewed the patient's lab results. Lab results narrative: CBC was reviewed. There is a mild leukocytosis of 11.1. Hemoglobin was elevated at 18.0 hematocrit was 53.4. Platelets were normal. Basic metabolic profile was reviewed. Glucose was elevated at 479. Sodium was falsely low at 124. Chloride was low at 88. CO2 was 8. Anion gap was elevated at 28. BUN was 37 and creatinine is 1.36. Lipase was reviewed and was within normal limits. Urinalysis was reviewed. Occult blood was 250 with 50-100 red blood cells noted. There is no evidence of urinary tract infection. Serum acetone was reviewed and was moderate. Venous blood gas was reviewed and showed a pH of 7.18. pCO2 was 15.6. pO2 was 46.3. Bicarb was 5.9. Labs: Laboratory Results - last 24 hr 03/12/23 03/12/23 03/12/23 13:44 14:35 14:41 WBC 11.1 H RBC 7.25 H Hgb 18.0 H* Hct 53.4 H MCV 73.7 L MCH 24.8 L MCHC 33.7 RDW Std Deviation 47.1 H RDW Coeff of Gerard 19.3 H Plt Count 447 MPV 10.7 Immature Gran % (Auto) 0.400 Neut % (Auto) 78.9 H Lymph % (Auto) 15.5 L [place] % (Auto) 4.7 Eos % (Auto) 0.3 Baso % (Auto) 0.2 Absolute Neuts (auto) 8.8 H Absolute Lymphs (auto) 1.72 Nucleated RBC % 0 Sodium 124 L Potassium 3.8 Chloride 88 L Carbon Dioxide 8.0 L* Anion Gap 28 H BUN 37 H Creatinine 1.36 H Estim Creat Clear Calc 53.53 Est GFR (MDRD) Af Amer 57 L Est GFR (MDRD) Non-Af 47 L BUN/Creatinine Ratio 27.2 H Glucose 479 H* Lactic Acid 0.8 Calcium 9.1 Troponin I High Sens 21 Lipase 64 Urine Color Yellow Urine Clarity Sl. Cloudy Urine pH 5.0 Ur Specific [place] 1.025 Urine Protein 30 H Urine Glucose (UA) 1000 H Urine Ketones 150 A* Urine Occult Blood 250 H Urine Nitrite Negative Urine Bilirubin Negative Urine Urobilinogen Normal Ur Leukocyte Esterase Negative Urine RBC 50-100 SEEN Urine WBC 0 SEEN Ur Squamous Epith Cells 0-5 SEEN Urine Bacteria 0 SEEN Urine Mucus 0 SEEN Acetone Level MODERATE H POC Glucose 489 H* ABG Data ABG results: ABG 03/12/23 15:32 Specimen Type KRYSTAL Sample Site Not entered VBG pH 7.18 L* VBG pO2 46 H VBG HCO3 6 L VBG Total CO2 6 L VBG O2 Sat (Calc) 73 H VBG Base Excess -23 L POC Mix VBG pCO2 Pt Tmp 15.6 L* O2 Delivery Device Not entered Crit Call To/Read Back Yes Blood Gas Notified Whom es Blood Gas Notified Time 15:33:42 Radiography Chest X-Ray - ED: 1 View, Read by ED Physician, Read by Radiologist and No Acute Disease Diagnostic Testing: Clinical Impression(s) from Imaging Studies Chest X-Ray 03/12/23 14:55 IMPRESSION: There are no acute findings. Electronically Signed: Michael Degroot MD at 15:12 EST , Portable 1 view chest x-ray was obtained. On my independent interpretation, lung smalls are clear. There is normal cardiac silhouette. Bony thorax is normal. There is no acute process noted. Radiologist also interpreted the x-ray and agrees. EKG Initial EKG: Attestation: I personally reviewed and interpreted this EKG as follows: Interpretation: Sinus Tachycardia (124) and Non-Specific ST Changes Comments: EKG was obtained. On my independent interpretation, it showed a sinus tachycardia with a rate of 124. [place] interval, QRS interval, and QTc intervals were all normal. [place] was normal. There are nonspecific ST-T wave changes. Prior EKG tracings: available for review Prior: Changed (The nonspecific ST-T wave changes are new compared to previous EKG dated 02/28/2023.) Management Discussion w/another healthcare provider: Hospitalist Treatment and Re-Evaluation :: Patient was given IV fluids. Patient was given a dose of [place] and Zofran. Patient was started on insulin drip. Case was discussed with the hospitalist. He will admit the patient to ICU. Patient and significant other understood and were agreeable with the plan. All questions were answered. 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
--- NOTE | 2023-03-12 14:55 | RAD_ITS ---
STUDY: X-RAY CHEST REASON FOR EXAM: Female, 37 years old. Dyspnea TECHNIQUE: XR Chest 1 View COMPARISON: None FINDINGS: There is no demonstrated pleural abnormality. Normal size heart. Normal mediastinum and enrike. Normal visualized pulmonary arteries. Normal visualized aortic arch and descending thoracic aorta. RAD/Chest 1 View (Portable) IMPRESSION: There are no acute findings. Electronically Signed: Michael Degroot MD at 15:12 EST ,
[2023-03-12 15:19] LABS: Lactic Acid 0.8 mmol/L (0.4-1.9)
[2023-03-12 15:20] LABS: Anion Gap 28 (5-15); BUN 37 mg/dL (7-18); BUN/Creat Ratio 27.2 RATIO (10-20); Calcium,Total 9.1 mg/dL (8.5-10.1); Chloride 88 mmol/L (98-107); Creatinine, Serum 1.36 mg/dL (0.55-1.02); EST Glomerular Filtration Rate 47 mL/min (>60); Est Glom Filt Rate - Afr Amer 57 mL/min (>60); Estimated Creatinine Clearance 53.53 ml/min; Glucose 479 mg/dL (74-106); Lipase 64 U/L (13-75); Potassium 3.8 mmol/L (3.5-5.1); Sodium Level 124 mmol/L (136-145)
[2023-03-12 15:23] LABS: Red Blood Cells-Urine 50-100 SEEN /hpf (0-5); Squamous Epithelial Cells - UA 0-5 SEEN /hpf (5-10)
[2023-03-12] MEDS: HYDROcodone Bitartrate/Apap 5/325 Tablet PO ×2 (15:24→21:35)
[2023-03-12 15:37] LABS: Blood Gas Specimen Type VEN; O2 Delivery Device Not entered; SITE Not entered; VBG BASE EXCESS -23 mmol/L (-1.0-3.5); VBG Bicarbonate 6 mmol/L (22-26); VBG PO2 46 mmHg (25-40); VBG SO2 73 % (50-70); VBG TCO2 6 mmol/L (23-33); VBG pCO2 15.6 mmHg (41-51); VBG pH 7.18 (7.32-7.42)
[2023-03-12] MEDS: Ondansetron 4 MG/2 ML Vial IV (16:01)
[2023-03-12 16:03] LABS: Troponin-I HS (w/2H Reflex) 21 pg/mL (3.0-54.0)
[2023-03-12] MEDS: Insulin Lispro 100 UNIT in 0.9% Normal Saline (100mL Bag) 99 ML 8.2 UNIT CONT INF (16:07)
--- NOTE | 2023-03-12 16:27 | HP.PCM.HOS_ITS ---
HPI - General General Date of Admission: 03/12/23 HPI Narrative VENANCIO TAVAREZ, is a 37 F who presents to the hospital in DKA. She has been feeling worse and getting weaker for the last couple of days and has been having significant back pain after a fall on 02/28. She was in the ER for that episode and had a lumbar x-ray which did not demonstrate a fracture. 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 She denies any recent illnesses, no fevers or chills. She is having some nausea today as well as vomiting but no diarrhea. In the ER she does have urine ketones as well as acetones, her urine glucose is over thousand her pH is 7.18 with bicarb of 8 and an anion gap of 28. Her creatinine is elevated at 1.36, her baseline is 0.7 so she does have an ANA LAURA. [facility] Medical History Abnormal angiogram Chronic anticoagulation HTN (hypertension) Hyperlipidemia Peripheral artery disease Type 1 diabetes mellitus Home Medications aspirin 81 mg tablet,delayed release (Adult Low Dose Aspirin) 81 mg PO DAILY 02/09/23 [History Last Taken Unknown] pantoprazole 40 mg granules delayed-release for susp in packet 40 mg PO DAILY 02/09/23 [History Last Taken Unknown] zolpidem 10 mg tablet 10 mg PO QHS PRN insomnia 02/09/23 [History Last Taken Un known] insulin lispro 100 unit/mL subcutaneous cartridge (Humalog U-100 Insulin) 1 - 100 unit subcut DAILY 02/28/23 [History Last Taken Unknown] atorvastatin 40 mg tablet 40 mg PO DAILY #30 tabs 03/01/23 [Rx Last Taken Unknown] cyclobenzaprine 10 mg tablet 10 mg PO TID PRN Muscle Spasm #20 TABLETS 03/01/23 [Rx Last Taken Unknown] esomeprazole magnesium 20 mg capsule,delayed release (Nexium 24HR) 20 mg PO DAILY #30 caps 03/01/23 [Rx Last Taken Unknown] hydrocodone-acetaminophen 5-325mg 5mg-325mg 1 tab PO Q6H PRN PRN Pain 3 days #10 TABLETS 03/01/23 [Rx Last Taken Unknown] insulin lispro 100 unit/mL subcutaneous pen 10 unit (0.1 mL) subcut TID #15 mL 03/01/23 [Rx Last Taken Unknown] metoprolol succinate 100 mg tablet,extended release 24 hr (Toprol XL) 100 mg PO DAILY #30 tabs 03/01/23 [Rx Last Taken Unknown] pregabalin 300 mg capsule 300 mg PO BID #60 caps 03/01/23 [Rx Last Taken Unknown] warfarin 5 mg tablet 15 mg (3 x 5 mg) PO DAILY #90 tabs 03/01/23 [Rx Last Taken Unknown] Allergy/AdvReac Type Severity Reaction Status Date / Time morphine Allergy Intermediate Rash Verified 02/28/23 20:36 orange Allergy Rash Verified 02/28/23 20:36 Family History (Updated 03/12/23 @ 16:[address] Wai Roberts MD) Other Cancer Surgical History S/P BKA (below knee amputation) unilateral Social History Smoking Status: Never smoker ROS Constitutional Constitutional: Reports fatigue and weakness; Denies chills, fever(s) or malaise Eyes Eyes: Denies blurry vision ENT HEENT: Denies headache(s) or nasal discharge Cardiovascular Cardiovascular: Reports chest pain; Denies dyspnea on exertion or syncope Respiratory/Chest Respiratory/Chest: Reports shortness of breath at rest; Denies cough or short ness of breath with exertion Gastrointestinal Gastrointestinal: Reports nausea and vomiting; Denies constipation or diarrhea Genitourinary Genitourinary: Denies dysuria Musculoskeletal Musculoskeletal: Reports back pain Neurologic Neurologic: Denies focal weakness, numbness or tremor(s) Psychiatric Psychiatric: Denies anxiety or depression Vital Signs Vital Signs Vital Signs: 03/12/23 13:34 03/12/23 14:55 03/12/23 14:55 Temperature 96.7 F L Temperature Source Temporal Pulse Rate 140 H 134 H Respiratory Rate 26 H 34 H Respiratory Effort Labored Respiratory Pattern Tachypnea Blood Pressure 131/88 H 139/101 H Blood Pressure Mean 102 113 Pulse Ox 100 100 Oxygen Delivery Method Room Air Room Air 03/12/23 16:14 03/12/23 16:14 Temperature Temperature Source Pulse Rate 115 H 115 H Respiratory Rate 26 H Respiratory Effort Respiratory Pattern Blood Pressure 170/94 H Blood Pressure Mean 119 Pulse Ox 100 Oxygen Delivery Method Weight Weight: 180 lb Body Mass Index (BMI) 29.0 Physical Exam Narrative General: Alert, Oriented x3, Cooperative, moderately ill HEENT: Atraumatic, PERRLA, EOMI, Normocephalic Oral: Dry mucosa Neck: Supple, No JVD Lungs: Diminished, Normal air movement, No rhonchi, No wheeze, No rales Cardiovascular: Tachycardic, Regular Rhythm, Normal S1, Normal S2, No murmurs Abdomen: Soft, Non Tender, Non-Distended, No Hepato-splenomegaly Extremities: No edema, Capillary Refill Less than 3 Seconds, left BKA Skin: No rashes, No breakdown Musculoskeletal: Tenderness to palpation in her lumbar spine both midline as well as bilateral paraspinal areas no bruising, or step-offs Neurological: Cranial nerves II-XII grossly intact, Motor Exam 5/5 strength throughout, Sensory exam intact to light touch and pain Psych/Mental Status: Flat affect Results Lab / Micro Data 03/12/23 14:41 03/12/23 14:41 Labs: Laboratory Results - last 24 hr 03/12/23 13:44: POC Glucose 489 H* 03/12/23 14:35: Urine Color Yellow, Urine Clarity Sl. Cloudy, Urine pH 5.0, Ur Specific [place] 1.025, Urine Protein 30 H, Urine Glucose (UA) 1000 H, Urine Ketones 150 A*, Urine Occult Blood 250 H, Urine Nitrite Negative, Urine Bilirubin Negative, Urine Urobilinogen Normal, Ur Leukocyte Esterase Negative, Urine RBC 50-100 SEEN, Urine WBC 0 SEEN, Ur Squamous Epith Cells 0-5 SEEN, Urine Bacteria 0 SEEN, Urine Mucus 0 SEEN 03/12/23 14:41: WBC 11.1 H, RBC 7.25 H, Hgb 18.0 H*, Hct 53.4 H, MCV 73.7 L, MCH 24.8 L, MCHC 33.7, RDW Std Deviation 47.1 H, RDW Coeff of Gerard 19.3 H, Plt Count 447, MPV 10.7, Immature Gran % (Auto) 0.400, Neut % (Auto) 78.9 H, Lymph % (Auto) 15.5 L, [place] % (Auto) 4.7, Eos % (Auto) 0.3, Baso % (Auto) 0.2, Absolute Neuts (auto) 8.8 H, Absolute Lymphs (auto) 1.72, Nucleated RBC % 0, Sodium 124 L , Potassium 3.8, Chloride 88 L, Carbon Dioxide 8.0 L*, Anion Gap 28 H, BUN 37 H, Creatinine 1.36 H, Estim Creat Clear Calc 53.53, Est GFR (MDRD) Af Amer 57 L, Est GFR (MDRD) Non-Af 47 L, BUN/Creatinine Ratio 27.2 H, Glucose 479 H*, Lactic Acid 0.8, Calcium 9.1, Troponin I High Sens 21, Lipase 64, Acetone Level MODERATE H ABG Data ABG results: ABG 03/12/23 15:32 Specimen Type KRYSTAL Sample Site Not entered VBG pH 7.18 L* VBG pO2 46 H VBG HCO3 6 L VBG Total CO2 6 L VBG O2 Sat (Calc) 73 H VBG Base Excess -23 L POC Mix VBG pCO2 Pt Tmp 15.6 L* O2 Delivery Device Not entered Crit Call To/Read Back Yes Blood Gas Notified Whom es Blood Gas Notified Time 15:33:42 Imagaing Radiology Impression Chest X-Ray 03/12/23 14:55 IMPRESSION: There are no acute findings. Electronically Signed: Michael Degroot MD at 15:12 EST Reading Location ID and State: [facility] / [place] , Service support , Assessment & Plan Assessment/Plan (1) Diabetic ketoacidosis: PLAN: Plan 1. DKA in the setting of type 1 diabetes with significant metabolic acidosis and pseudohyponatremia/ANA LAURA ? She has been unable to have her insulin pump as it is broken since she moved up here from [place] ? Continue with insulin drip ? Continue with aggressive IV fluids ? We will check her BMP every 4 hours and make adjustments as necessary ? Will admit to the ICU ? N.p.o. 2. Chest pain and back pain ? Initial troponins unremarkable and this is likely symptomatic from her DKA ? Her back pain was evaluated on 02/28/2023 with a plain film which did not demonstrate a fracture ? Can resume her home Percocet 3. HTN/HLD/peripheral vascular disease status post amputation, DVT ? She is on metoprolol and Lipitor however these medications cannot be verified because she would not provide us a list so we will need to call either her PCP or her pharmacy when it is open on Monday for verification ? In the meantime we will continue with these medications and monitor make adjustments as necessary ? She states that her amputation was due to having blood clots in her lower extremities will continue with Coumadin monitoring INR ? Continue with aspirin as well for the peripheral vascular disease 4. GERD ? Stable ? Continue with PPI DVT: Coumadin Charges/Coding Visit Charges Inpatient E&M: 14782 Init Hosp L3
[2023-03-12 16:30] LABS: Bedside Glucose 419 mg/dL (74-106)
[2023-03-12 17:29] LABS: Bedside Glucose 327 mg/dL (74-106)
[2023-03-12 17:48] LABS: Reflex Troponin-HS? (from REC) Y
[2023-03-12 18:28] LABS: Bedside Glucose 244 mg/dL (74-106)
[2023-03-12 18:51] LABS: Anion Gap 21 (5-15); BUN 29 mg/dL (7-18); BUN/Creat Ratio 30.6 RATIO (10-20); Calcium,Total 7.6 mg/dL (8.5-10.1); Chloride 103 mmol/L (98-107); Creatinine, Serum 0.95 mg/dL (0.55-1.02); EST Glomerular Filtration Rate 71 mL/min (>60); Est Glom Filt Rate - Afr Amer 86 mL/min (>60); Estimated Creatinine Clearance 76.64 ml/min; Glucose 265 mg/dL (74-106); Potassium 3.1 mmol/L (3.5-5.1); Sodium Level 134 mmol/L (136-145); Troponin-I HS 23 pg/mL (3.0-54.0)
[2023-03-12 19:27] LABS: Prothrombin Time (Protime)PT. 13.5 SECONDS (11.7-14.9)
[2023-03-12] MEDS: Dext 5%-0.45% NS 1,000 ML 150 ML IV (19:30)
[2023-03-12] MEDS: Metoprolol(XL)Succ 50 MG Tablet PO (19:43)
[2023-03-12 20:12] LABS: Bedside Glucose 242 mg/dL (74-106)
[2023-03-12] MEDS: Potassium Chloride 10mEq/100mL 10 MEQ/100 ML IV.SOLN. 100 MEQ IV BOLUS ×3 (20:17→22:40)
[2023-03-12] MEDS: 0.9% Normal Saline (250mL Bag) 250 ML 15 ML IV (21:36)
[2023-03-12] MEDS: 0.9% Saline Lock 10 ML Syringe IV (21:36)
[2023-03-12 23:51] LABS: Bedside Glucose 266 mg/dL (74-106)
[2023-03-12 23:51] LABS: Bedside Glucose 260 mg/dL (74-106)
[2023-03-12 23:51] LABS: Bedside Glucose 251 mg/dL (74-106)
[2023-03-12 23:51] LABS: Bedside Glucose 237 mg/dL (74-106)
[2023-03-13] VITALS (23 sets, daily range): BP systolic 125–183; BP diastolic 73–105; PULSE 84–113; RESP 14–27; TEMP 36.5–37.2; O2SAT 92–100; BMI 22.9
[2023-03-13] MEDS: Potassium Chloride 10mEq/100mL 10 MEQ/100 ML IV.SOLN. 100 MEQ IV BOLUS (00:03)
[2023-03-13] MEDS: Ketorolac 15 MG/ML Vial IV (00:15)
[2023-03-13 00:32] LABS: Anion Gap 11 (5-15); BUN 20 mg/dL (7-18); BUN/Creat Ratio 21.5 RATIO (10-20); Chloride 107 mmol/L (98-107); Creatinine, Serum 0.93 mg/dL (0.55-1.02); EST Glomerular Filtration Rate 72 mL/min (>60); Est Glom Filt Rate - Afr Amer 87 mL/min (>60); Estimated Creatinine Clearance 78.29 ml/min; Glucose 258 mg/dL (74-106); Potassium 4.7 mmol/L (3.5-5.1); Sodium Level 133 mmol/L (136-145)
[2023-03-13] MEDS: Dext 5%-0.45% NS 1,000 ML 150 ML IV ×3 (01:32→15:42)
[2023-03-13] MEDS: 0.9% Saline Lock 10 ML Syringe IV ×2 (01:33→21:52)
[2023-03-13 03:23] LABS: Bedside Glucose 219 mg/dL (74-106)
[2023-03-13 03:23] LABS: Bedside Glucose 198 mg/dL (74-106)
[2023-03-13 03:23] LABS: Bedside Glucose 188 mg/dL (74-106)
[2023-03-13 03:53] LABS: Absolute Lymphocyte Count 2.05 X10^3/uL (0.83-4.51); Absolute Neutrophil Count 5.2 X10^3/uL (2.0-7.7); Basophil# 0.02 X10^3/uL; Basophil% 0.3 % (0-1); Eosinophil# 0.02 X10^3/uL; Eosinophils% 0.3 % (0-5); Hematocrit 41.2 % (37-47); Hemoglobin 14.2 g/dL (12.0-15.0); Lymphocyte # 2.05 X10^3/ul (0.83-4.51); Lymphocyte % 26.2 % (19-41); Mean Corp Hgb Conc 34.5 g/dL (32-36); Mean Corpuscular Hgb 25.1 pg (27.0-32.0); Mean Corpuscular Volume 72.8 fL (81-99); Mean Platelet Vol. 10.7 fl (6.2-12.0); Monocyte# 0.51 X10^3/uL; Monocyte% 6.5 % (0-10); NRBC Flagged by Analyzer 0 % (0-5); Neutrophil # 5.19 X10^3/uL (2.7-7.7); Neutrophil % 66.4 % (47-70); Platelet Count 237 K/mm3 (150-450); RBC Distribution Width SD 48.2 fl (35.1-43.9); Red Blood Count 5.66 M/mm3 (4.2-5.4); White Blood Count 7.8 K/mm3 (4.4-11.0)
[2023-03-13 04:27] LABS: Anion Gap 9 (5-15); BUN 22 mg/dL (7-18); Calcium,Total 7.9 mg/dL (8.5-10.1); Chloride 108 mmol/L (98-107); EST Glomerular Filtration Rate 60 mL/min (>60); Est Glom Filt Rate - Afr Amer 72 mL/min (>60); Estimated Creatinine Clearance 66.19 ml/min; Glucose 173 mg/dL (74-106); Sodium Level 134 mmol/L (136-145)
[2023-03-13 04:53] LABS: Bedside Glucose 167 mg/dL (74-106)
[2023-03-13 04:53] LABS: Bedside Glucose 153 mg/dL (74-106)
[2023-03-13] MEDS: HYDROcodone Bitartrate/Apap 5/325 Tablet PO ×3 (05:51→18:39)
[2023-03-13 07:25] LABS: Bedside Glucose 129 mg/dL (74-106)
[2023-03-13 08:09] LABS: Bedside Glucose 140 mg/dL (74-106)
[2023-03-13 08:42] LABS: Bedside Glucose 124 mg/dL (74-106)
[2023-03-13] MEDS: Metoprolol(XL)Succ 50 MG Tablet PO ×2 (10:28→21:10)
[2023-03-13] MEDS: Aspirin E.C. 81 MG Tablet PO (10:29)
[2023-03-13] MEDS: Pantoprazole Sodium 40 MG Tablet PO (10:29)
[2023-03-13] MEDS: Atorvastatin Calcium 40 MG Tablet PO (10:29)
[2023-03-13 10:50] LABS: Bedside Glucose 103 mg/dL (74-106)
[2023-03-13 11:23] LABS: Anion Gap 9 (5-15); BUN 25 mg/dL (7-18); Calcium,Total 8.6 mg/dL (8.5-10.1); Chloride 111 mmol/L (98-107); Creatinine, Serum 1.47 mg/dL (0.55-1.02); EST Glomerular Filtration Rate 43 mL/min (>60); Est Glom Filt Rate - Afr Amer 52 mL/min (>60); Estimated Creatinine Clearance 49.53 ml/min; Glucose 105 mg/dL (74-106); Potassium 3.1 mmol/L (3.5-5.1); Sodium Level 137 mmol/L (136-145)
[2023-03-13 11:47] LABS: Bedside Glucose 94 mg/dL (74-106)
[2023-03-13 12:56] LABS: Bedside Glucose 114 mg/dL (74-106)
[2023-03-13] MEDS: Ondansetron 4 MG/2 ML Vial IV (13:02)
[2023-03-13 14:10] LABS: Bedside Glucose 130 mg/dL (74-106)
[2023-03-13 14:47] LABS: Bedside Glucose 126 mg/dL (74-106)
[2023-03-13 14:52] LABS: Anion Gap 10 (5-15); BUN 26 mg/dL (7-18); BUN/Creat Ratio 16.4 RATIO (10-20); Calcium,Total 8.4 mg/dL (8.5-10.1); Chloride 111 mmol/L (98-107); Creatinine, Serum 1.59 mg/dL (0.55-1.02); EST Glomerular Filtration Rate 39 mL/min (>60); Est Glom Filt Rate - Afr Amer 47 mL/min (>60); Estimated Creatinine Clearance 45.79 ml/min; Glucose 133 mg/dL (74-106); Potassium 3.3 mmol/L (3.5-5.1); Sodium Level 138 mmol/L (136-145)
[2023-03-13] MEDS: Potassium Chloride Oral Tablet 20 MEQ 60 MEQ PO (15:05)
--- NOTE | 2023-03-13 15:12 | PN.HOSP_ITS ---
Reason for Visit Reason for Visit: Diagnoses Type 2 diabetes mellitus with ketoacidosis without coma (03/12/23) Subjective Subjective Patient admitted yesterday afternoon for DKA. No acute events overnight. Patient seen at bedside this morning in the ICU. Patient laying in bed, conversing normally. Patient was in mild distress due to lower back pain, which is fairly chronic in nature for her but has been acutely worse over the last few weeks. Patient reports mild nausea this morning, no episodes of vomiting overnight, no abdominal pain. She does feel like eating at this point. She reports feeling somewhat fatigued but improved from yesterday. She otherwise denies any acute pain or discomfort. No other acute concerns. Objective Data Objective Data Vital Signs: Vital Signs Temp Pulse Resp BP Pulse Ox O2 Del Method 97.9 F 100 16 161/91 H 95 Room Air 03/13/23 12:00 03/13/23 14:00 03/13/23 14:00 03/13/23 14:00 03/13/23 14:00 03/13/23 14:00 Oxygen Delivery Method Room Air Weight: 64.6 kg Body Mass Index (BMI) 22.9 Intake & Output: Intake and Output for Last 24 Hours 03/11/23 03/12/23 03/13/23 23:59 23:59 23:59 Intake Total 3328.61 / 3328.61 2355.28 / 2355.28 Output Total 600 / 600 Balance 2728.61 / 2728.61 2355.28 / 2355.28 Lab / Micro Data 03/13/23 03:30 03/13/23 14:20 Labs: Laboratory Results - last 24 hr 03/12/23 14:35: Urine RBC 50-100 SEEN, Urine WBC 0 SEEN, Ur Squamous Epith Cells 0-5 SEEN, Urine Bacteria 0 SEEN, Urine Mucus 0 SEEN 03/12/23 14:41: Sodium 124 L, Potassium 3.8, Chloride 88 L, Carbon Dioxide 8.0 L*, Anion Gap 28 H, BUN 37 H, Creatinine 1.36 H, Estim Creat Clear Calc 53.53, Est GFR (MDRD) Af Amer 57 L, Est GFR (MDRD) Non-Af 47 L, BUN/Creatinine Ratio 27.2 H, Glucose 479 H*, Lactic Acid 0.8, Calcium 9.1, Troponin I High Sens 21, Lipase 64, Acetone Level MODERATE H 03/12/23 16:04: POC Glucose 419 H 03/12/23 17:09: POC Glucose 327 H 03/12/23 18:09: POC Glucose 244 H 03/12/23 18:10: Sodium 134 L, Potassium 3.1 L, Chloride 103, Carbon Dioxide 10.0 L, Anion Gap 21 H, BUN 29 H, Creatinine 0.95, Estim Creat Clear Calc 76.64, Est GFR (MDRD) Af Amer 86, Est GFR (MDRD) Non-Af 71, BUN/Creatinine Ratio 30.6 H, Glucose 265 H, Calcium 7.6 L, Troponin I High Sens 23 03/12/23 19:10: PT 13.5, INR 1.0 03/12/23 19:34: POC Glucose 242 H 03/12/23 20:35: POC Glucose 237 H 03/12/23 21:30: POC Glucose 251 H 03/12/23 22:29: POC Glucose 260 H 03/12/23 23:29: POC Glucose 266 H 03/12/23 23:50: Sodium 133 L, Potassium 4.7, Chloride 107, Carbon Dioxide 15.0 L , Anion Gap 11, BUN 20 H, Creatinine 0.93, Estim Creat Clear Calc 78.29, Est GFR (MDRD) Af Amer 87, Est GFR (MDRD) Non-Af 72, BUN/Creatinine Ratio 21.5 H, Glucose 258 H, Calcium 8.0 L 03/13/23 00:31: POC Glucose 219 H 03/13/23 01:29: POC Glucose 198 H 03/13/23 02:32: POC Glucose 188 H 03/13/23 03:30: WBC 7.8, RBC 5.66 H, Hgb 14.2, Hct 41.2, MCV 72.8 L, MCH 25.1 L, MCHC 34.5, RDW Std Deviation 48.2 H, RDW Coeff of Gerard 19.0 H, Plt Count 237, MPV 10.7, Immature Gran % (Auto) 0.300, Neut % (Auto) 66.4, Lymph % (Auto) 26.2, [place] % (Auto) 6.5, Eos % (Auto) 0.3, Baso % (Auto) 0.3, Absolute Neuts (auto) 5.2, Absolute Lymphs (auto) 2.05, Nucleated RBC % 0, PT 13.0, INR 1.0, Sodium 134 L, Potassium 4.0, Chloride 108 H, Carbon Dioxide 17.0 L, Anion Gap 9, BUN 22 H, Creatinine 1.10 H, Estim Creat Clear Calc 66.19, Est GFR (MDRD) Af Amer 72, Est GFR (MDRD) Non-Af 60, BUN/Creatinine Ratio 20.0, Glucose 173 H, Calcium 7.9 L 03/13/23 03:37: POC Glucose 167 H 03/13/23 04:34: POC Glucose 153 H 03/13/23 06:18: Acetone Level SMALL H 03/13/23 06:30: POC Glucose 129 H 03/13/23 07:50: POC Glucose 140 H 03/13/23 08:21: POC Glucose 124 H 03/13/23 10:30: Sodium 137, Potassium 3.1 L, Chloride 111 H, Carbon Dioxide 17.0 L, Anion Gap 9, BUN 25 H, Creatinine 1.47 H, Estim Creat Clear Calc 49.53, Est GFR (MDRD) Af Amer 52 L, Est GFR (MDRD) Non-Af 43 L, BUN/Creatinine Ratio 17.0, Glucose 105, Calcium 8.6, POC Glucose 103 03/13/23 11:28: POC Glucose 94 03/13/23 12:34: POC Glucose 114 H 03/13/23 13:52: POC Glucose 130 H 03/13/23 14:20: Sodium 138, Potassium 3.3 L, Chloride 111 H, Carbon Dioxide 17.0 L, Anion Gap 10, BUN 26 H, Creatinine 1.59 H, Estim Creat Clear Calc 45.79, Est GFR (MDRD) Af Amer 47 L, Est GFR (MDRD) Non-Af 39 L, BUN/Creatinine Ratio 16.4, Glucose 133 H, Calcium 8.4 L 03/13/23 14:28: POC Glucose 126 H ABG Data ABG results: ABG 03/12/23 15:32 Specimen Type KRYSTAL Sample Site Not entered VBG pH 7.18 L* VBG pO2 46 H VBG HCO3 6 L VBG Total CO2 6 L VBG O2 Sat (Calc) 73 H VBG Base Excess -23 L POC Mix VBG pCO2 Pt Tmp 15.6 L* O2 Delivery Device Not entered Crit Call To/Read Back Yes Blood Gas Notified Whom es Blood Gas Notified Time 15:33:42 Radiography Diagnostic Testing: Radiology Impression Chest X-Ray 03/12/23 14:55 IMPRESSION: There are no acute findings. Electronically Signed: Michael Degroot MD at 15:12 EST Reading Location ID and State: [facility] / [place] , Service support , Physical Exam Const alert, oriented x3, no apparent distress and average body habitus Constitutional Narrative: Alert but fatigued appearing, laying in bed, conversing normally, mild distress due to lower back pain. General Appearance: cooperative and comfortable HEENT normocephalic, head/scalp atraumatic, hearing grossly normal bilaterally, nasal mucous membranes and turbinates normal and moist oral mucous membranes Eyes PERRL, EOMs intact bilaterally and conjunctivae normal Neck full ROM, no lymphadenopathy and supple Lymph Lymphatic: no lymphadenopathy noted Chest inspection of chest normal Resp normal respiratory effort, normal air movement, no use of accessory muscles and clear to auscultation bilaterally Cardio no murmurs and peripheral pulses 2+ throughout Cardio Narrative: Tachycardic, regular rhythm. GI normal to inspection, nondistended, normoactive bowel sounds, soft to palpation, non-tender and non-distended Back/Spine normal ROM Extremity normal to inspection, full ROM and no pedal edema Skin no rashes or lesions noted Neuro moves all extremities and no focal motor deficits Speech: speech normal Psych mental status grossly normal Assessment & Plan Assessment/Plan (1) Diabetic ketoacidosis: PLAN: Plan Patient is a 37-year-old female who presented with [facility] ED on 03/12/2023 with DKA. 1. DKA, resolved; type 1 diabetes mellitus DKA presumed secondary to insulin nonadherence. Patient reported recent moved to [place] from [place] about 1 month ago, was previously on an insulin pump but due to insurance issues was not able to get an insulin pump and ran out of insulin. BG 489 on admit, pH 7.18, bicarb 8 with anion gap metabolic acidosis, urine ketones present. Admitted to the ICU and initiated on DKA protocol. Anion gap closed on afternoon of 03/13, bicarb 17, patient with minimal nausea and wanting to eat. ? Transitioned off insulin drip on 03/13. Started on Lantus 15 units nightly, Humalog 5 units 3 times daily AC with high?medium sliding scale dosing. One- time dose of NPH 7 units given with transition to cover until initiating Lantus. Repeat BMP tonight and tomorrow morning. Monitor blood sugars closely. staff educator consulted. Will likely need to start Lantus and Humalog injectable insulin on discharge until patient is able to get a new insulin pump in the outpatient setting. 2. ANA LAURA Suspect prerenal ANA LAURA with possibly some degree of ATN in setting of DKA. Baseline creatinine 0.5-0.7. Creatinine 1.36 on admit, initially improved with fluids but then worsened on afternoon of 03/13 to 1.59. Patient reports adequate urine output since admission. ? Monitor daily BMP. IV fluids discontinued with insulin drip, encouraged p.o. intake. Monitor urine output. 3. Back pain Patient seen in ED on 02/28/2023 for a fall. Lumbar spine x-ray showed no fractures. ? Continue home Percocet. Chronic medical conditions: ? History of severe peripheral vascular disease with DVT s/p left BKA: Continue home warfarin, daily INR checks. Continue home atorvastatin. ? Hypertension, hyperlipidemia: Continue home Toprol and atorvastatin. ? GERD: Continue home PPI. DVT prophylaxis: Warfarin CODE STATUS: Full code, verified Expected disposition: Home, 1 to 2 days Total clinical time spent by myself addressing the patient's medical issues, reviewing all the data, and collaborating with patient's care team: 35 minutes. Charges/Coding Visit Charges Inpatient E&M: 78211 Subs Hosp L2
[2023-03-13] MEDS: Insulin Lispro 100 UNIT in 0.9% Normal Saline (100mL Bag) 99 ML CONT INF (16:03)
[2023-03-13 16:05] LABS: Bedside Glucose 115 mg/dL (74-106)
--- NOTE | 2023-03-13 16:10 | CASEMGMT ---
RN CM into pt room for assessment, pt lying in bed with emesis bag. Introduced self and role to pt, she asks if RN CM could come back as she does not feel well. RN CM to follow up tomorrow.
[2023-03-13] MEDS: proCHLORPERazine 10 MG/2 ML Vial 5 MG IV ×2 (16:22→21:51)
[2023-03-13 16:46] LABS: Bedside Glucose 154 mg/dL (74-106)
[2023-03-13] MEDS: Insulin NPH Human 100 UNITS/ML PEN 7 UNITS SC (17:31)
[2023-03-13] MEDS: Insulin Glargine-YFGN 100 UNIT/ML Pen 15 UNIT SC (21:09)
[2023-03-13] MEDS: Insulin Lispro 100 UNIT/ML INSULN.PEN SC (21:13)
[2023-03-13 23:09] LABS: Anion Gap 8 (5-15); BUN 29 mg/dL (7-18); BUN/Creat Ratio 16.6 RATIO (10-20); Calcium,Total 8.6 mg/dL (8.5-10.1); Chloride 109 mmol/L (98-107); Creatinine, Serum 1.75 mg/dL (0.55-1.02); EST Glomerular Filtration Rate 35 mL/min (>60); Est Glom Filt Rate - Afr Amer 42 mL/min (>60); Glucose 336 mg/dL (74-106); Potassium 4.3 mmol/L (3.5-5.1); Sodium Level 134 mmol/L (136-145)
[2023-03-13 23:09] LABS: Bedside Glucose 381 mg/dL (74-106)
[2023-03-14] MEDS: HYDROcodone Bitartrate/Apap 5/325 Tablet PO ×6 (00:31→23:09)
[2023-03-14 04:00] VITALS: BP 164/86; PULSE 92; RESP 13; TEMP 36.4; O2SAT 97
[2023-03-14 04:52] VITALS: BMI 23.2
[2023-03-14] MEDS: proCHLORPERazine 10 MG/2 ML Vial 5 MG IV ×3 (06:12→18:45)
[2023-03-14] MEDS: Insulin Lispro 100 UNIT/ML INSULN.PEN SC ×4 (06:18→16:45)
[2023-03-14 06:55] LABS: Bedside Glucose 346 mg/dL (74-106)
[2023-03-14 07:28] LABS: Pathologist Review Reviewed
[2023-03-14] MEDS: Insulin NPH Human 100 UNITS/ML PEN 10 UNITS SC (07:44)
[2023-03-14] MEDS: Aspirin E.C. 81 MG Tablet PO (07:45)
[2023-03-14] MEDS: Pantoprazole Sodium 40 MG Tablet PO (07:45)
[2023-03-14] MEDS: Atorvastatin Calcium 40 MG Tablet PO (07:45)
[2023-03-14 07:46] VITALS: BP 164/86; PULSE 90
[2023-03-14] MEDS: Metoprolol(XL)Succ 50 MG Tablet PO ×2 (07:46→22:08)
[2023-03-14 08:43] LABS: Anion Gap 8 (5-15); BUN 29 mg/dL (7-18); BUN/Creat Ratio 15.3 RATIO (10-20); Calcium,Total 9.2 mg/dL (8.5-10.1); Chloride 108 mmol/L (98-107); EST Glomerular Filtration Rate 32 mL/min (>60); Est Glom Filt Rate - Afr Amer 38 mL/min (>60); Estimated Creatinine Clearance 38.32 ml/min; Glucose 361 mg/dL (74-106); Potassium 3.9 mmol/L (3.5-5.1); Sodium Level 132 mmol/L (136-145)
[2023-03-14 08:57] LABS: International Normalized Ratio 1.2; Prothrombin Time (Protime)PT. 15.5 SECONDS (11.7-14.9)
[2023-03-14 09:18] VITALS: BP 153/101; PULSE 89; RESP 18; TEMP 36.4; O2SAT 94
--- NOTE | 2023-03-14 10:33 | DCINST_ITS ---
Discharge Instructions Diet Discharge Diet: Carb Control Diet Activity Discharge Activity: Return to Normal Activity Weight Bearing Status: Full weight bearing Follow Up Care Test Results: Test results from this visit will be discussed in further detail at your follow- up appointment, if applicable. Pending Tests Upon Discharge: None Discharge Plan Admission Admit Date/Time: 03/12/23 16:20 Primary Reason for Your Visit: DKA Attending Provider: Marcelo Stone Primary Care Provider: Care Physician,No Primary Consulting Providers: Wai Roberts Instructions Additional Instructions / Restrictions: Please take insulin as noted below. Continue other home medications as noted. Follow-up with your new primary care doctor as soon as possible. Please have repeat BMP done when you see your new PCP to ensure your kidney function has continued to improve. Discharge Orders/Prescriptions Prescriptions: New (DME) lancets 30 gauge misc See Rx Instructions .Route Qty: 120 0RF Rx Instructions: As directed (DME) Blood Glucose Test Strip See Rx Instructions .Route Qty: 50 3RF Rx Instructions: As directed (DME) insulin syr/ndl U100 half ángel 0.3 mL 30 gauge x 1/2 syringe See Rx Instructions .Route Qty: 100 0RF Rx Instructions: As directed insulin glargine 100 unit/mL solution 30 unit subcut DAILY Qty: 10 0RF insulin lispro [Humalog U-100 Insulin] 100 unit/mL solution 10 unit subcut TID Qty: 10 0RF Continued atorvastatin 40 mg tablet 40 mg PO DAILY 30 Days Qty: 30 0RF hydrocodone-acetaminophen 5-325 mg tablet 1 tab PO Q6H PRN PRN (Reason: Pain) 3 Days Qty: 12 0RF metoprolol succinate [Toprol XL] 100 mg tablet extended release 24 hr 100 mg PO DAILY 30 Days Qty: 30 0RF aspirin [Adult Low Dose Aspirin] 81 mg tablet,delayed release (DR/EC) 81 mg PO DAILY 30 Days Qty: 30 0RF zolpidem 10 mg tablet 10 mg PO QHS PRN (Reason: insomnia) 30 Days Qty: 30 0RF pregabalin 300 mg capsule 300 mg PO BID 30 Days Qty: 60 0RF pantoprazole [address] for susp in packet 40 mg PO DAILY 30 Days Qty: 30 0RF Changed warfarin 5 mg tablet 5 mg PO DAILY 30 Days Qty: 30 0RF Discontinued Humalog U-100 Insulin 100 unit/mL cartridge 1 - 100 unit subcut DAILY Patient Comments: Pump. Currently pump is broken and is out of medication. cyclobenzaprine 10 mg tablet 10 mg PO TID PRN (Reason: Muscle Spasm) Qty: 20 0RF esomeprazole magnesium [Nexium 24HR] 20 mg capsule,delayed release(DR/EC) 20 mg PO DAILY Qty: 30 0RF insulin lispro 100 unit/mL insulin pen 10 unit subcut TID Qty: 15 0RF Rx Instructions: follow your sliding scale Referrals / Follow Up: [facility] [Non-Staff] - 03/15/23 2:30 pm (Appt is with Keyla rifle case repairer @ [facility]. She will assist w/JESSICA application and then will get you an appt to be seen by PCP. ) Disposition Disposition (needs filled in before D/C Order can be placed): Home, Self Care
--- NOTE | 2023-03-14 10:40 | CASEMGMT ---
Addendum entered by Artie Segovia 03/14/23 11:28: @ bedside and reviewed all of the below information with him, ie: Appt w/Keyla NUNEZ, @ 2:30 PM tomorrow and that she will assist w/getting pt a glucometer and w/JESSICA application, and appt w/PCP @ [facility], [facility] Rx assist program, CCN. He and pt deny having other discharge planning needs/concerns at this time. They were made aware to ask for CM if any further questions/concerns/needs arise. Original Note: RN?CM?DESULFURIZER OPERATOR?CM?to room to meet with patient for initial transition planning/care coordination?assessment.?RN?CM?introduced self and role at [facility].? Pt voices understanding and consents to?assessment?at this time.? Pt resting in bed in no distress at this time.? Pt is A/O at this time and answers all questions appropriately.?? Care providers, pharmacy, and demographics verified/updated at this time. PCP: No PCP. Pt states has not applied for JESSICA yet and needs assistance. Provided w/[facility] information and pt states would like to get an appt with them. RN ENRIQUE placed call to [facility] and spoke w/Keyla NUNEZ. Appt scheduled w/Keyla for tomorrow @ 2:30 PM. Keyla will assist pt w/cx'ing her current insurance with [employer] (which needs to occur before pt can apply for [place] JESSICA) and then she will assist pt w/applying for [place] JESSICA. Once this occurs, she will get an appt for pt with PCP @ [facility]. Specialists: none Preferred Pharmacy: [facility] Retail @ discharge Insurance: Pt currently has no active insurance in [place]. She has [employer], which is a JESSICA benefit in [place]. Prescription Benefit:?none. Pt voices limited income. Pt will need to use [facility] Rx assist program @ d/c. LNOK: , Elvis. Living Arrangements: Pt just moved to [place] from [place]. She lives w/her and their 3 kids (ages 18, 15, and 13) in a 2-story home w/6 steps to enter. Pt states she does okay with the stairs and is independent. Pt states her just started working and they have very limited income/resources. She states she could use assistance w/getting food. SAI, Esthela, made aware. Transportation:?Pt states drives self and states no transportation concerns at this time.? also drives. DME and medications: Pt had a glucometer, but lost it during the move. She also states she is out of all of her medications and insulin. She states she cannot afford to buy a glucometer and supplies out of pocket. Keyla @ [facility] made aware of same. She states they can assist pt w/getting a glucometer tomorrow when she comes in to the appt. Pt made aware and voices appreciation. Pt states no need for further DME at this time.? HHC/SNF: No hx of either. CCN: Discussed this program with pt and she is interested. She states, I can use all the help I can get. Referral placed for CCN. Call placed to Guillermo @ [facility] and she was made aware. She states it may be about 2-3 wks before they are able to connect w/pt. Pt made aware and voices is okay with same. Pt wishes to return home and states has no further concerns with going home at time of discharge.? CM?to follow for any further discharge planning/needs.? Pt voices no further concerns/needs at this time.? Advised pt to ask for?CM?if any further questions/concerns/needs arise.? Voices understanding. PLAN:??Home w/family support and discharge plans in place. Pt to meet w/CM @ [facility] tomorrow. CCN referral placed. [facility] Rx assist to be used @ discharge. SAI to meet w/pt for resources. Chanel MAITASN?RN?CM
[2023-03-14] MEDS: Insulin Lispro 100 UNIT/ML INSULN.PEN 7 UNIT SC (11:41)
--- NOTE | 2023-03-14 11:46 | CASEMGMT ---
Per RN CM patient has recently moved to [place] and would benefit from resources. SW went to patient's room. Patient was sleeping, but her significant other was present. SW provided him with numerous resources for the area. SW also let him know if patient would like to talk with SW to just ask RN for SW. Esthela Hess REGISTERED NURSE RENAL KANG
[2023-03-14 12:01] LABS: Bedside Glucose 422 mg/dL (74-106)
[2023-03-14] MEDS: Insulin Lispro 100 UNIT/ML INSULN.PEN 15 UNIT SC (14:00)
[2023-03-14 14:10] LABS: Bedside Glucose 409 mg/dL (74-106)
--- NOTE | 2023-03-14 15:39 | PN.HOSP_ITS ---
Reason for Visit Reason for Visit: Diagnoses Type 2 diabetes mellitus with ketoacidosis without coma (03/12/23) Subjective Subjective No acute events overnight. Patient seen at bedside's morning. Patient laying comfortably in bed, no acute distress. She continues to appear fatigued but mildly improved from yesterday. States she ate well yesterday evening and was awaiting her breakfast when I saw her this morning. She denies any nausea or vomiting since coming off the insulin drip. Reports mild back pain this morning, improved with home pain medication. She otherwise denies any acute pain or discomfort, no other acute concerns this morning. Objective Data Objective Data Vital Signs: Vital Signs Temp Pulse Resp BP Pulse Ox O2 Del Method 97.6 F L 89 18 153/101 H 94 Room Air 03/14/23 09:18 03/14/23 09:18 03/14/23 09:18 03/14/23 09:18 03/14/23 09:18 03/14/23 09:18 Oxygen Delivery Method Room Air Weight: 65.4 kg Body Mass Index (BMI) 23.2 Intake & Output: Intake and Output for Last 24 Hours 03/12/23 03/13/23 03/14/23 23:59 23:59 23:59 Intake Total 3328.61 / 3328.61 3557.16 / 3557.16 Output Total 600 / 600 Balance 2728.61 / 2728.61 3557.16 / 3557.16 Lab / Micro Data 03/13/23 03:30 03/14/23 06:32 Labs: Laboratory Results - last 24 hr 03/12/23 14:41: Diff Path Review Reviewed 03/13/23 15:44: POC Glucose 115 H 03/13/23 16:25: POC Glucose 154 H 03/13/23 21:06: POC Glucose 381 H 03/13/23 21:40: Sodium 134 L, Potassium 4.3, Chloride 109 H, Carbon Dioxide 17.0 L, Anion Gap 8, BUN 29 H, Creatinine 1.75 H, Estim Creat Clear Calc 41.60, Est GFR (MDRD) Af Amer 42 L, Est GFR (MDRD) Non-Af 35 L, BUN/Creatinine Ratio 16.6, Glucose 336 H, Calcium 8.6 03/14/23 06:16: POC Glucose 346 H 03/14/23 06:32: PT Cancelled, INR Cancelled, Sodium 132 L, Potassium 3.9, Chloride 108 H, Carbon Dioxide 16.0 L, Anion Gap 8, BUN 29 H, Creatinine 1.90 H, Estim Creat Clear Calc 38.32, Est GFR (MDRD) Af Amer 38 L, Est GFR (MDRD) Non-Af 32 L, BUN/Creatinine Ratio 15.3, Glucose 361 H, Calcium 9.2 03/14/23 07:45: PT 15.5 H, INR 1.2 03/14/23 11:40: POC Glucose 422 H 03/14/23 13:51: POC Glucose 409 H Physical Exam Const alert, oriented x3, no apparent distress and average body habitus Constitutional Narrative: Fatigued appearing but improved from yesterday, laying in bed, conversing normally, no acute distress. General Appearance: cooperative and comfortable HEENT normocephalic, head/scalp atraumatic, hearing grossly normal bilaterally, nasal mucous membranes and turbinates normal and moist oral mucous membranes Eyes PERRL, EOMs intact bilaterally and conjunctivae normal Neck full ROM, no lymphadenopathy and supple Lymph Lymphatic: no lymphadenopathy noted Chest inspection of chest normal Resp normal respiratory effort, normal air movement, no use of accessory muscles and clear to auscultation bilaterally Cardio regular rate, regular rhythm, no murmurs and peripheral pulses 2+ throughout GI normal to inspection, nondistended, normoactive bowel sounds, soft to palpation, non-tender and non-distended Back/Spine normal ROM Extremity normal to inspection, full ROM and no pedal edema Skin no rashes or lesions noted Neuro moves all extremities and no focal motor deficits Speech: speech normal Psych mental status grossly normal Assessment & Plan Assessment/Plan (1) Diabetic ketoacidosis: PLAN: Plan Patient is a 37-year-old female who presented with [facility] ED on 03/12/2023 with DKA. 1. DKA, resolved; type 1 diabetes mellitus DKA presumed secondary to insulin nonadherence. Patient reported recent moved to [place] from [place] about 1 month ago, was previously on an insulin pump but due to insurance issues was not able to get an insulin pump and ran out of insulin. BG 489 on admit, pH 7.18, bicarb 8 with anion gap metabolic acidosis, urine ketones present. Admitted to the ICU and initiated on DKA protocol. Anion gap closed on afternoon of 12/11, bicarb 17, patient with minimal nausea and wanting to eat. Transitioned off insulin drip at that time. ? Patient has had elevated blood sugars in the 300s since coming off insulin drip. Increased to Lantus 30 units nightly, Humalog 10 units 3 times daily AC plus high-dose sliding scale. Adjust as needed. Case management following. Hopeful for discharge home tomorrow as patient has afternoon appointment set up with PCP at [place], who can provide her with a glucometer and further resources going forward. 2. ANA LAURA Suspect prerenal ANA LAURA with possibly some degree of ATN in setting of DKA. Baseline creatinine 0.5-0.7. Creatinine 1.36 on admit, initially improved with fluids but then worsened on afternoon of 03/13 to 1.59. Patient reports adequate urine output since admission. ? Creatinine mildly worsened to 1.90 on 03/14. Has had moderate urine output. Will follow-up BMP this afternoon and tomorrow morning to ensure improvement in ANA LAURA prior to discharge. 3. Back pain, stable Patient seen in ED on 02/28/2023 for a fall. Lumbar spine x-ray showed no fractures. ? Continue home Percocet. Chronic medical conditions: ? History of severe peripheral vascular disease with DVT s/p left BKA: Continue home warfarin, daily INR checks. Continue home atorvastatin. ? Hypertension, hyperlipidemia: Continue home Toprol and atorvastatin. ? GERD: Continue home PPI. DVT prophylaxis: Warfarin CODE STATUS: Full code, verified Expected disposition: Home, 1 to 2 days Total clinical time spent by myself addressing the patient's medical issues, reviewing all the data, and collaborating with patient's care team: 35 minutes. Charges/Coding Visit Charges Inpatient E&M: 00129 Subs Hosp L2
[2023-03-14 16:00] VITALS: BP 148/84; PULSE 86; RESP 18; TEMP 36.4; O2SAT 96
[2023-03-14] MEDS: Insulin Lispro 100 UNIT/ML INSULN.PEN 10 UNIT SC (16:46)
[2023-03-14 17:06] LABS: Bedside Glucose 277 mg/dL (74-106)
[2023-03-14 18:30] LABS: Anion Gap 8 (5-15); BUN 29 mg/dL (7-18); BUN/Creat Ratio 14.6 RATIO (10-20); Calcium,Total 9.3 mg/dL (8.5-10.1); Chloride 107 mmol/L (98-107); Creatinine, Serum 1.99 mg/dL (0.55-1.02); EST Glomerular Filtration Rate 30 mL/min (>60); Est Glom Filt Rate - Afr Amer 36 mL/min (>60); Estimated Creatinine Clearance 36.59 ml/min; Glucose 264 mg/dL (74-106); Potassium 3.5 mmol/L (3.5-5.1); Sodium Level 133 mmol/L (136-145)
[2023-03-14] MEDS: 0.9% Saline Lock 10 ML Syringe IV ×2 (18:45→22:09)
[2023-03-14 22:02] VITALS: BP 146/100; PULSE 107; RESP 18; TEMP 36.3; O2SAT 98
[2023-03-14] MEDS: Insulin Glargine-YFGN 100 UNIT/ML Pen 30 UNIT SC (22:07)
[2023-03-14 22:08] VITALS: BP 146/100; PULSE 107
[2023-03-14 22:22] LABS: Bedside Glucose 116 mg/dL (74-106)
--- NOTE | 2023-03-14 22:28 | PCM.HOSP.N ---
Hospitalist Note Patient on pain regimen for lower back pain, noting norco now not effective. Will add lidocaine patches.
[2023-03-14] MEDS: Lidocaine 5% Patch 2 PATCH TOPICAL (23:09)
[2023-03-15] MEDS: HYDROcodone Bitartrate/Apap 5/325 Tablet PO ×2 (03:26→08:01)
[2023-03-15 03:34] VITALS: BP 162/84; PULSE 86; RESP 17; TEMP 36.4; O2SAT 99
[2023-03-15 04:21] LABS: Anion Gap 7 (5-15); BUN 29 mg/dL (7-18); BUN/Creat Ratio 16.2 RATIO (10-20); Calcium,Total 8.8 mg/dL (8.5-10.1); Chloride 109 mmol/L (98-107); Creatinine, Serum 1.79 mg/dL (0.55-1.02); EST Glomerular Filtration Rate 34 mL/min (>60); Est Glom Filt Rate - Afr Amer 41 mL/min (>60); Estimated Creatinine Clearance 40.67 ml/min; Glucose 113 mg/dL (74-106); Potassium 3.3 mmol/L (3.5-5.1); Sodium Level 136 mmol/L (136-145)
[2023-03-15 04:22] LABS: International Normalized Ratio 1.3; Prothrombin Time (Protime)PT. 16.4 SECONDS (11.7-14.9)
[2023-03-15 05:08] VITALS: BMI 22.9
[2023-03-15 06:28] VITALS: BP 153/102; PULSE 90; RESP 17; TEMP 36.3; O2SAT 97
[2023-03-15] MEDS: Insulin Lispro 100 UNIT/ML INSULN.PEN 10 UNIT SC (08:05)
[2023-03-15] MEDS: Insulin Lispro 100 UNIT/ML INSULN.PEN SC (08:06)
[2023-03-15] MEDS: Potassium Chloride Oral Tablet 20 MEQ 40 MEQ PO (08:13)
[2023-03-15 08:14] VITALS: BP 153/102; PULSE 90
[2023-03-15] MEDS: Aspirin E.C. 81 MG Tablet PO (08:14)
[2023-03-15] MEDS: Pantoprazole Sodium 40 MG Tablet PO (08:14)
[2023-03-15] MEDS: Metoprolol(XL)Succ 50 MG Tablet PO (08:14)
[2023-03-15 08:26] LABS: Bedside Glucose 154 mg/dL (74-106)
[2023-03-15] MEDS: Calcium Carbonate 500 MG Tablet 1000 MG PO (08:53)
--- NOTE | 2023-03-15 09:13 | CASEMGMT ---
SAI completed a [facility] prescription assistance form and will send to [facility] pharmacy. SAI will also notify pharmacy. Esthela KAPADIA
--- NOTE | 2023-03-15 09:29 | PCM.DC.SUM ---
Providers Date of Admission: 03/12/23 Date of Discharge: 03/15/23 Primary Care Physician: No Primary Care Phys Reason For Visit: DKA Diagnosis Discharge Diagnosis (1) Diabetic ketoacidosis: Status: Acute Code(s): E11.10 - Type 2 diabetes mellitus with ketoacidosis without coma Medications at Discharge Home Medications aspirin 81 mg tablet,delayed release (Adult Low Dose Aspirin) 81 mg PO DAILY 30 days #30 tabs 03/14/23 atorvastatin 40 mg tablet 40 mg PO DAILY 30 days #30 tabs 03/14/23 blood sugar diagnostic (Blood Glucose Test strips) #50 ea 03/14/23 hydrocodone-acetaminophen 5-325mg 5mg-325mg 1 tab PO Q6H PRN PRN Pain 3 days #12 TABLETS 03/14/23 insulin syr/ndl U100 half ángel 0.3 mL 30 gauge x 1/2 #100 ea 03/14/23 lancets 30 gauge #120 units 03/14/23 metoprolol succinate 100 mg tablet,extended release 24 hr (Toprol XL) 100 mg PO DAILY 30 days #30 tabs 03/14/23 pantoprazole 40 mg granules delayed-release for susp in packet 40 mg PO DAILY 30 days #30 ea 03/14/23 pregabalin 300 mg capsule 300 mg PO BID 30 days #60 caps 03/14/23 warfarin 5 mg tablet 5 mg PO DAILY 30 days #30 tabs 03/14/23 zolpidem 10 mg tablet 10 mg PO QHS PRN insomnia 30 days #30 tabs 03/14/23 insulin glargine 100 unit/mL subcutaneous solution 30 unit (0.3 mL) subcut DAILY #10 mL 03/15/23 insulin lispro 100 unit/mL subcutaneous solution (Humalog U-100 Insulin) 10 unit (0.1 mL) subcut TID #10 mL 03/15/23 Hospital Course Operations None Procedures EKG and - (Chest x-ray) Summary of Care Provided Minutes Spent on Discharge: 35 Hospital Course: Patient is a 37-year-old female who presented with [facility] ED on 03/12/2023 with DKA. Hospital course as noted below. Patient was discharged home in stable condition on 03/15. . DKA, resolved; type 1 diabetes mellitus DKA presumed secondary to insulin nonadherence. Patient reported recent moved to [place] from [place] about 1 month ago, was previously on an insulin pump but due to insurance issues was not able to get an insulin pump and ran out of insulin. BG 489 on admit, pH 7.18, bicarb 8 with anion gap metabolic acidosis, urine ketones present. Admitted to the ICU and initiated on DKA protocol. Anion gap closed on afternoon of 03/13, bicarb 17, patient with minimal nausea and wanting to eat. Transitioned off insulin drip at that time. ? Patient discharged on Lantus 30 units nightly, Humalog 10 units 3 times daily AC. Will likely need further adjustment in outpatient setting. 2. ANA LAURA, resolving Suspect prerenal ANA LAURA with possibly some degree of ATN in setting of DKA. Baseline creatinine 0.5-0.7. Creatinine 1.36 on admit, initially improved with fluids but then worsened on afternoon of 03/13 to 1.59. Patient reports adequate urine output since admission. ? Creatinine improving on discharge but not resolved. Patient did have good urine output at that time though. Recommend repeat BMP in 5 to 7 days to ensure resolution of ANA LAURA. 3. Back pain, stable Patient seen in ED on 02/28/2023 for a fall. Lumbar spine x-ray showed no fractures. ? Continued home Percocet. Chronic medical conditions: ? History of severe peripheral vascular disease with DVT s/p left BKA: Continued home warfarin. Continue home atorvastatin. ? Hypertension, hyperlipidemia: Continued home Toprol and atorvastatin. ? GERD: Continued home PPI. Total clinical time spent by myself addressing the patient's discharge needs: 35 minutes. Physical Exam Const alert, oriented x3, no apparent distress and average body habitus Constitutional Narrative: Fatigued appearing but improved, laying in bed, conversing normally, no acute distress. General Appearance: cooperative and comfortable HEENT normocephalic, head/scalp atraumatic, hearing grossly normal bilaterally, nasal mucous membranes and turbinates normal and moist oral mucous membranes Eyes PERRL, EOMs intact bilaterally and conjunctivae normal Neck full ROM, no lymphadenopathy and supple Lymph Lymphatic: no lymphadenopathy noted Chest inspection of chest normal Resp normal respiratory effort, normal air movement, no use of accessory muscles and clear to auscultation bilaterally Cardio regular rate, regular rhythm, no murmurs and peripheral pulses 2+ throughout GI normal to inspection, nondistended, normoactive bowel sounds, soft to palpation, non-tender and non-distended Back/Spine normal ROM Extremity normal to inspection, full ROM and no pedal edema Skin no rashes or lesions noted Neuro moves all extremities and no focal motor deficits Speech: speech normal Psych mental status grossly normal Weight / BMI Weight Weight: 64.501 kg Body Mass Index (BMI) 22.9 ABG / Lab / Microbiology Data 03/13/23 03:30 03/15/23 04:00 Laboratory: Laboratory Results - last 24 hr 03/14/23 11:40: POC Glucose 422 H 03/14/23 13:51: POC Glucose 409 H 03/14/23 16:00: Sodium Cancelled, Potassium Cancelled, Chloride Cancelled, Carbon Dioxide Cancelled, Anion Gap Cancelled, BUN Cancelled, Creatinine Cancelled, Estim Creat Clear Calc Cancelled, Est GFR (MDRD) Af Amer Cancelled, Est GFR (MDRD) Non-Af Cancelled, BUN/Creatinine Ratio Cancelled, Glucose Cancelled, Calcium Cancelled 03/14/23 16:45: POC Glucose 277 H 03/14/23 17:16: Sodium 133 L, Potassium 3.5, Chloride 107, Carbon Dioxide 18.0 L, Anion Gap 8, BUN 29 H, Creatinine 1.99 H, Estim Creat Clear Calc 36.59, Est GFR (MDRD) Af Amer 36 L, Est GFR (MDRD) Non-Af 30 L, BUN/Creatinine Ratio 14.6, Glucose 264 H, Calcium 9.3 03/14/23 21:57: POC Glucose 116 H 03/15/23 04:00: PT 16.4 H, INR 1.3, Sodium 136, Potassium 3.3 L, Chloride 109 H, Carbon Dioxide 20.0 L, Anion Gap 7, BUN 29 H, Creatinine 1.79 H, Estim Creat Clear Calc 40.67, Est GFR (MDRD) Af Amer 41 L, Est GFR (MDRD) Non-Af 34 L, BUN/Creatinine Ratio 16.2, Glucose 113 H, Calcium 8.8 03/15/23 08:03: POC Glucose 154 H D/C Instructions Discharge Diet: Carb Control Diet Weight Bearing Status: Full weight bearing Pending Tests Upon Discharge: None Meaningful Use Info Meaningful Use Diagnoses (Choose all that apply): None applicable Discharge Plan Admission Admit Date/Time: 03/12/23 16:20 Primary Reason for Your Visit: DKA Attending Provider: Macrelo Stone Primary Care Provider: Care Physician,No Primary Consulting Providers: Wai Roberts Instructions Additional Instructions / Restrictions: Please take insulin as noted below. Continue other home medications as noted. Follow-up with your new primary care doctor as soon as possible. Please have repeat BMP done when you see your new PCP to ensure your kidney function has continued to improve. Discharge Orders/Prescriptions Prescriptions: New (DME) lancets 30 gauge misc See Rx Instructions .Route Qty: 120 0RF Rx Instructions: As directed (DME) Blood Glucose Test Strip See Rx Instructions .Route Qty: 50 3RF Rx Instructions: As directed (DME) insulin syr/ndl U100 half ángel 0.3 mL 30 gauge x 1/2 syringe See Rx Instructions .Route Qty: 100 0RF Rx Instructions: As directed insulin glargine 100 unit/mL solution 30 unit subcut DAILY Qty: 10 0RF insulin lispro [Humalog U-100 Insulin] 100 unit/mL solution 10 unit subcut TID Qty: 10 0RF Continued atorvastatin 40 mg tablet 40 mg PO DAILY 30 Days Qty: 30 0RF hydrocodone-acetaminophen 5-325 mg tablet 1 tab PO Q6H PRN PRN (Reason: Pain) 3 Days Qty: 12 0RF metoprolol succinate [Toprol XL] 100 mg tablet extended release 24 hr 100 mg PO DAILY 30 Days Qty: 30 0RF aspirin [Adult Low Dose Aspirin] 81 mg tablet,delayed release (DR/EC) 81 mg PO DAILY 30 Days Qty: 30 0RF zolpidem 10 mg tablet 10 mg PO QHS PRN (Reason: insomnia) 30 Days Qty: 30 0RF pregabalin 300 mg capsule 300 mg PO BID 30 Days Qty: 60 0RF pantoprazole [address] for susp in packet 40 mg PO DAILY 30 Days Qty: 30 0RF Changed warfarin 5 mg tablet 5 mg PO DAILY 30 Days Qty: 30 0RF Discontinued Humalog U-100 Insulin 100 unit/mL cartridge 1 - 100 unit subcut DAILY Patient Comments: Pump. Currently pump is broken and is out of medication. cyclobenzaprine 10 mg tablet 10 mg PO TID PRN (Reason: Muscle Spasm) Qty: 20 0RF esomeprazole magnesium [Nexium 24HR] 20 mg capsule,delayed release(DR/EC) 20 mg PO DAILY Qty: 30 0RF insulin lispro 100 unit/mL insulin pen 10 unit subcut TID Qty: 15 0RF Rx Instructions: follow your sliding scale Referrals / Follow Up: [facility] [Non-Staff] - 03/15/23 2:30 pm (Appt is with Keyla bilingual patient support caseworker @ [facility]. She will assist w/JESSICA application and then will get you an appt to be seen by PCP. ) Disposition Disposition (needs filled in before D/C Order can be placed): Home, Self Care Charges/Coding Visit Charges Inpatient E&M: 00117 Disch Hosp >30min
[2023-03-15 09:51] VITALS: BP 147/89; PULSE 90; RESP 18; TEMP 36.3; O2SAT 97
--- NOTE | 2023-03-15 09:54 | PHA.DC.MR.R ---
[facility] has performed discharge medication reconciliation for this patient. The patient's discharge medication list was reviewed for discrepancies and discrepancies were resolved. Medications at Discharge Home Medications aspirin 81 mg tablet,delayed release (Adult Low Dose Aspirin) 81 mg PO DAILY 30 days #30 tabs 03/14/23 atorvastatin 40 mg tablet 40 mg PO DAILY 30 days #30 tabs 03/14/23 blood sugar diagnostic (Blood Glucose Test strips) #50 ea 03/14/23 hydrocodone-acetaminophen 5-325mg 5mg-325mg 1 tab PO Q6H PRN PRN Pain 3 days #12 TABLETS 03/14/23 insulin syr/ndl U100 half ángel 0.3 mL 30 gauge x 1/2 #100 ea 03/14/23 lancets 30 gauge #120 units 03/14/23 metoprolol succinate 100 mg tablet,extended release 24 hr (Toprol XL) 100 mg PO DAILY 30 days #30 tabs 03/14/23 pantoprazole 40 mg granules delayed-release for susp in packet 40 mg PO DAILY 30 days #30 ea 03/14/23 pregabalin 300 mg capsule 300 mg PO BID 30 days #60 caps 03/14/23 warfarin 5 mg tablet 5 mg PO DAILY 30 days #30 tabs 03/14/23 zolpidem 10 mg tablet 10 mg PO QHS PRN insomnia 30 days #30 tabs 03/14/23 insulin glargine 100 unit/mL subcutaneous solution 30 unit (0.3 mL) subcut DAILY #10 mL 03/15/23 insulin lispro 100 unit/mL subcutaneous solution (Humalog U-100 Insulin) 10 unit (0.1 mL) subcut TID #10 mL 03/15/23
--- NOTE | 2023-03-15 10:01 | CASEMGMT ---
MESHA NUNEZ NOTE: Dr Stone has e-scribed discharge meds to [facility] retail pharmacy. [facility] Rx assist program to be used to cover cost of medications. Per pharmacy, this program does not cover for [place], lyrica, ASA, or Ambien. Pt made aware of same. She denies having further discharge planning needs or concerns. She states her will be coming to pick her up @ discharge and will take her to the appt @ [facility] @ 2:[address] Stone states pt needs repeat labs in 3-5 days and wants to ensure pt will be seen by PCP by then for this to be done. Call placed to ENRIQUE, Keyla, @ [facility] and she was made aware. She states once pt applies for [facility] today she will schedule an appt to be seen by PCP @ [facility] tomorrow. Chanel LANIER RN, CM
--- NOTE | 2023-03-20 08:41 | CCN.REFER ---
AGREES TO [facility].
--- NOTE | 2023-04-04 09:40 | CCN.REFER ---
VISIT MADE TO HOME BY CCN STAFF. PATIENT STATES DOES NOT NEED [facility]N PATIENT HAS LARGE SUPPORT SYSTEM AT HOME, DM SUPPLIES ORDERED FROM/ SUPPLIED BY [facility] AND ESTABLISHED CARE WITH [facility].
== END 2023-03-15 11:00 | disposition home or self-care (01) | DRG 420 ==
LOC: ED 15:50 → ICU 16:38
PROVIDERS: Internal Medicine; Admitting Provider Family Medicine; Emergency Provider Emergency Medicine; Visit Provider Hospitalist
DX: E10.10 Type 1 diabetes mellitus with ketoacidosis without coma (principal); N17.0 Acute kidney failure with tubular necrosis; E10.51 Type 1 diabetes mellitus with diabetic peripheral angiopathy without gangrene; Z79.4 Long term (current) use of insulin; Z89.512 Acquired absence of left leg below knee; I10 Essential (primary) hypertension; E78.5 Hyperlipidemia, unspecified; K21.9 Gastro-esophageal reflux disease without esophagitis; M54.50 Low back pain, unspecified; W19.XXXA Unspecified fall, initial encounter; Z59.6 Low income; Z91.148 Patient's other noncompliance with medication regimen for other reason; Z79.01 Long term (current) use of anticoagulants; Z79.82 Long term (current) use of aspirin; Z79.899 Other long term (current) drug therapy; Z86.718 Personal history of other venous thrombosis and embolism
CPT/HCPCS: 36415; 71045; 80048; 81001; 82009; 82803; 82962; 83605; 83690; 84484; 85025; 85610; 93005; 97802; 97803; 99285; J7030; J7050; A4216; J2405; J7799

== ENCOUNTER 2023-04-13 15:54 | Emergency (ER) | payer MEDICAID, SELFPAY ==
[2023-04-13 15:57] VITALS: BP 175/91; PULSE 96; RESP 18; TEMP 36; O2SAT 100
--- NOTE | 2023-04-13 16:17 | ED.RN ---
called for pt- not in waiting room. pt came by EMS. this RN called patient on cell phone to check if she was at [facility]. it has been 20 min since she checked in- pt states she is not wanting to be seen at this time.
--- OUTSIDE RECORDS SUMMARY | 2023-04-13 16:44 | XMS RPT_ITS | CCD ---
Author Name Unknown Address [address] [place] [address] Organization [facility] Care Team Providers Care Shingles Roofer Name Role Phone VICENTE QURESHI Attending Unavailable VICENTE QURESHI Primary Care Unavailable VICENTE QURESHI Admitting Unavailable Allergies Allergy Classification Reported Allergen(s) Allergy Type Date of Onset Reaction(s) Facility (1 source) Morphine Drug Allergy [facility] Repository (1 source) [place] - fruit; Translations: [ORANGE] Food allergy (disorder) [facility] Repository Results Test Name Value Interpretation Reference Range Facil ity Encounters Encounter Date Encounter Type Care Provider Facility Start: 02-12-2023 End: 02-12-2023 Emergency department patient visit VICENTE QURESHI [facility] Payers Date Payer Category Payer Unknown [id number] Medicaid [id number] Summary Purpose Family History No Family History Records Found Advance Directives No Advanced Directives Records Found Additional Source Comments INFORMATION SOURCE (unrecogn ized section and content) FOR RECORDS PERTAINING TO PATIENTS WHO ARE OR HAVE BEEN ENROLLED IN A CHEMICAL DEPENDENCY/SUBSTANCEABUSE PROGRAM, SOME INFORMATION MAY BE OMITTED. This clinical summary was aggregated from multiple sources. Caution should be exercised in using it in the provision of clinical care. This summary normalizes information from multiple sources, and as a consequence, information in this document may materially change the coding, format and clinical context of patient data. In addition, data may be omitted in some cases. CLINICAL DECISIONS SHOULD BE BASED ON THE PRIMARY CLINICAL RECORDS. [employer] provides no warranty or guarantee of the accuracy or completeness of information in this document.
== END 2023-04-13 16:18 | disposition left against medical advice (07) ==
LOC: ED 16:24
DX: R69 Illness, unspecified (principal); Z53.21 Procedure and treatment not carried out due to patient leaving prior to being seen by health care provider

== ENCOUNTER 2023-04-23 11:44 | Emergency (ER) | payer MEDICAID, SELFPAY ==
[2023-04-23 11:44] VITALS: BP 152/77; PULSE 82; RESP 16; TEMP 36.4; O2SAT 99; BMI 27.6
--- NOTE | 2023-04-23 12:03 | CT_ITS ---
STUDY: CT LUMBAR SPINE WITH CONTRAST REASON FOR EXAM: Female, 37 years old. Back pain, fall, on Coumadin RADIATION DOSAGE (If Supplied By Facility): CTDIvol = ( 15.70 ) mGy, DLP = ( 519.15 ) mGycm TECHNIQUE: The patient was scanned in a multi detector CT scanner. High resolution transaxial imaging was performed following the intravenous administration of IV 100mL Isovue-370. Images were obtained from T12 to sacrum. Sagittal and coronal images were reconstructed. Individualized dose optimization techniques were used for this CT. COMPARISON: None FINDINGS: Normal lumbar lordosis. There is no substantial scoliosis. Normal vertebrae of the lumbar spine. There is no acute fracture. There is transitional vertebral segment with sacralization of L5. L1-2: Normal endplates. Normal disc height and morphology. Normal bilateral facet joints. Normal central canal and bilateral lateral recesses. Normal bilateral intervertebral neural foramina. L2-3: Normal endplates. Normal disc height and morphology. Normal bilateral facet joints. Normal central canal and bilateral lateral recesses. Normal bilateral intervertebral neural foramina. L3-4: Normal endplates. Normal disc height and morphology. Mild spurring of the bilateral facet joints. Normal central canal and bilateral lateral recesses. Normal bilateral intervertebral neural foramina. L4-5: Normal endplates. Normal disc height and morphology. Mild spurring of the bilateral facet joints. Normal central canal and bilateral lateral recesses. Normal bilateral intervertebral neural foramina. L5-S1: Rudimentary disc space. Normal central canal and bilateral lateral recesses. Normal bilateral intervertebral neural foramina. Normal visualized paraspinous soft tissue structures. There is no demonstrated abnormal enhancement. CT/Spine Lumbar WITH Contrast IMPRESSION: Mild degenerative change. No fracture. No canal stenosis. Electronically Signed: Babar Wheat MD at 13:57 EST ,
--- NOTE | 2023-04-23 12:04 | EDS_ITS ---
HPI History of Present Illness Chief Complaint: Back Detail of Chief Complaint: Back pain after fall 1 week ago Informant: patient Narrative Narrative: Patient presents to the emergency department with complaint of pain in her back after she fell a week ago. Patient fell getting out of the shower and try to put her prosthetic leg on. She fell against the riser that leads into the shower. She did not hit her head. She is on Coumadin for history of DVT. Complaining of pain that radiates down into her buttock and down her right leg to the knee. She denies weakness to the extremity. She denies loss of bowel or bladder function. Currently rates her pain a 7 out of 10. Her last INR check was about a month ago. [facility] Medical History (Updated 04/23/23 @ 14:[address] Delfina Holloway DO) Abnormal angiogram Chronic anticoagulation DVT (deep venous thrombosis) HTN (hypertension) Hyperlipidemia Peripheral artery disease Type 1 diabetes mellitus Home Medications aspirin 81 mg tablet,delayed release (Adult Low Dose Aspirin) 81 mg PO DAILY 30 days #30 tabs 03/14/23 [Rx Last Taken Unknown] atorvastatin 40 mg tablet 40 mg PO DAILY 30 days #30 tabs 03/14/23 [Rx Last Taken Unknown] blood sugar diagnostic (Blood Glucose Test strips) #50 ea 03/14/23 [Rx Last Taken Unknown] insulin syr/ndl U100 half ángel 0.3 mL 30 gauge x 1/2 #100 ea 03/14/23 [Rx Last Taken Unknown] lancets 30 gauge #120 units 03/14/23 [Rx Last Taken Unknown] metoprolol succinate 100 mg tablet,extended release 24 hr (Toprol XL) 100 mg PO DAILY 30 days #30 tabs 03/14/23 [Rx Last Taken Unknown] pantoprazole 40 mg granules delayed-release for susp in packet 40 mg PO DAILY 30 days #30 ea 03/14/23 [Rx Last Taken Unknown] pregabalin 300 mg capsule 300 mg PO BID 30 days #60 caps 03/14/23 [Rx Last Taken Unknown] warfarin 5 mg tablet 5 mg PO DAILY 30 days #30 tabs 03/14/23 [Rx Last Taken Unknown] zolpidem 10 mg tablet 10 mg PO QHS PRN insomnia 30 days #30 tabs 03/14/23 [Rx Last Taken Unknown] insulin glargine 100 unit/mL subcutaneous solution 30 unit (0.3 mL) subcut DAILY #10 mL 03/15/23 [Rx Last Taken Unknown] cyclobenzaprine 10 mg tablet 10 mg PO TID PRN Muscle Spasm #20 TABLETS 04/23/23 [Rx Last Taken Unknown] hydrocodone-acetaminophen 5-325mg 5mg-325mg 1 tab PO Q4H PRN PRN Pain 2 days #10 TABLETS 04/23/23 [Rx Last Taken Unknown] insulin lispro 100 unit/mL subcutaneous solution (Humalog U-100 Insulin) 30 unit subcut TID 04/23/23 [History Last Taken Unknown] warfarin 5 mg tablet 5 mg PO DAILY #30 tabs 04/23/23 [Rx Last Taken Unknown] Allergy/AdvReac Type Severity Reaction Status Date / Time morphine Allergy Intermediate Rash Verified 04/13/23 15:55 orange Allergy Rash Verified 04/13/23 15:55 Family History (Updated 03/12/23 @ 16:[address] Wai Roberts MD) Other Cancer Surgical History S/P BKA (below knee amputation) unilateral Social History Smoking Status: Former smoker ROS ROS ED Review of Systems ROS Unobtainable: other Constitutional Constitutional ED: Reports lethargy; Denies chills, fever(s), sweats or weight loss Eyes Eyes: Denies blurry vision, change in vision or diplopia ENT ENT ED: Denies rhinorrhea or sore throat Cardiovascular Cardiovascular: Denies chest pain, orthopnea or racing heartbeat Respiratory/Chest Respiratory/Chest: Denies cough, dyspnea, dyspnea on exertion, orthopnea or sputum Gastrointestinal Gastrointestinal: Denies abdominal pain, diarrhea, nausea or vomiting Genitourinary Genitourinary ED: Denies dysuria, hematuria or urinary frequency Musculoskeletal Musculoskeletal: Reports back pain; Denies arthralgias, myalgias or neck pain Integumentary Denies abscess, Abrasions or rash Neurologic Neurologic: Denies headache(s) or weakness Psychiatric Psychiatric: Denies anxiety, depression or suicidal thoughts Endocrine Endocrinology: Denies polydipsia, polyphagia or polyuria Hematologic/Lymphatic Hematologic/Lymphatic: Denies easy bleeding, easy bruising or lymphadenopathy Allergic/Immunologic Allergic/Immunologic ED: Denies mouth swelling, tongue swelling or urticaria EXAM Physical Exam Const Vital Signs: 04/23/23 11:44 04/23/23 14:39 Temperature 97.5 F L Temperature Source Temporal Pulse Rate 82 77 Respiratory Rate 16 16 Blood Pressure 152/77 H 122/74 H Blood Pressure Mean 102 90 Pulse Ox 99 99 Oxygen Delivery Method Room Air Positive well nourished and well developed General Appearance ED: well developed and NAD HEENT Reports TM's clear and moist mucous membranes normocephalic and atraumatic; Negative for trauma or tenderness Tympanic Membrane ED: Yes TM's clear Eyes PERRL and EOMs intact bilaterally General Eye ED: Negative for pale conjunctiva or scleral icterus Neck no lymphadenopathy, supple and no JVD General: Negative for tenderness Chest Wall inspection of chest normal and palpation of chest normal Chest: Negative for tenderness Resp normal respiratory effort and clear to auscultation bilaterally Effort and Inspection: Negative for respiratory distress or pain with movement Auscultation: Negative for rhonchi, wheezes or diminished lung sounds Cardio regular rate, regular rhythm, S1 normal heart sound, S2 normal heart sound and no murmurs Peripheral Pulses: pulses 2+ throughout GI normal to inspection, nondistended, normoactive bowel sounds, soft to palpation, non-tender, non-distended and no masses Back/Spine no CVA tenderness and no thoracic nor lumbar tenderness Back/Spine Narrative: Tenderness diffusely over the lumbar spine. There is no ecchymosis or bruising. Negative straight leg raise. Deep tendon reflexes on the right is 1 out of 4 at the patella as well as the Achilles. She has normal L5 extension. Normal sensation to light touch. Left leg patient has below-knee amputation. Extremity normal to inspection General Extremety ED: Negative for edema General Extremity: Negative for edema Neuro oriented x3, CN's II-XII intact bilaterally, no sensory deficits noted and gait normal Sensorium / Orientation: awake, alert, oriented to person, oriented to place and oriented to time Motor Exam: strength 5/5 throughout and strength abnormal Psych mental status grossly normal Skin no rashes or lesions noted and no wounds MDM MDM MDM Narrative Medical decision making narrative: Patient presents with back injury and pain that radiates down her right leg. She has had paresthesias down the right leg before the injury but states this is exacerbated. Patient also on Coumadin and states she has been compliant but ran out a couple days ago and has not taken it for couple days. I did obtain a CT scan with IV contrast of the lumbar spine that was unremarkable for fracture or narrowing of the spinal canal. INR was 0.9. Chemistries unremarkable. Glucose was elevated 343 without evidence for DKA. Discussed results with patient. She will be discharged to home with a prescription for Flexeril and a few [place] for pain. Patient will be given a prescription for her Coumadin which she takes 5 mg daily. No concerning signs or symptoms of cauda equina. I do not feel emergent MRI is indicated. She is advised to follow-up with her primary care physician if her symptoms persist. I advised patient to have her Coumadin level checked again in 1 week. Lab Data Attestation: I reviewed the patient's lab results. Labs: Laboratory Results - last 24 hr 04/23/23 12:15 PT 11.7 INR 0.9 Sodium 139 Potassium 4.1 Chloride 105 Carbon Dioxide 29.0 Anion Gap 5 BUN 16 Creatinine 0.76 Estim Creat Clear Calc 107.78 Est GFR (MDRD) Af Amer 110 Est GFR (MDRD) Non-Af 91 BUN/Creatinine Ratio 20.9 H Glucose 343 H Calcium 9.5 Radiography Diagnostic Testing: Clinical Impression(s) from Imaging Studies Lumbar Spine CT 04/23/23 12:03 IMPRESSION: Mild degenerative change. No fracture. No canal stenosis. Electronically Signed: Babar Wehat MD at 13:57 EST Reading Location ID and State: [address] [place] [address] , Service support , Discharge Plan Triage Chief Complaint: Back ED Provider: Delfina Holloway Dx/Rx/DC Orders Clinical Impression: Contusion of back Instructions: ED Back Contusion Prescriptions: New cyclobenzaprine [cyclobenzaprine] 10 mg tablet 10 mg PO TID PRN (Reason: Muscle Spasm) Qty: 20 0RF hydrocodone-acetaminophen [hydrocodone-acetaminophen] 5-325 mg tablet 1 tab PO Q4H PRN PRN (Reason: Pain) 2 Days Qty: 10 0RF warfarin 5 mg tablet 5 mg PO DAILY Qty: 30 0RF No Action (DME) lancets 30 gauge misc See Rx Instructions .Route Qty: 120 0RF Rx Instructions: As directed (DME) Blood Glucose Test Strip See Rx Instructions .Route Qty: 50 3RF Rx Instructions: As directed (DME) insulin syr/ndl U100 half ángel 0.3 mL 30 gauge x 1/2 syringe See Rx Instructions .Route Qty: 100 0RF Rx Instructions: As directed atorvastatin 40 mg tablet 40 mg PO DAILY 30 Days Qty: 30 0RF metoprolol succinate [Toprol XL] 100 mg tablet extended release 24 hr 100 mg PO DAILY 30 Days Qty: 30 0RF aspirin [Adult Low Dose Aspirin] 81 mg tablet,delayed release (DR/EC) 81 mg PO DAILY 30 Days Qty: 30 0RF warfarin 5 mg tablet 5 mg PO DAILY 30 Days Qty: 30 0RF zolpidem 10 mg tablet 10 mg PO QHS PRN (Reason: insomnia) 30 Days Qty: 30 0RF pregabalin 300 mg capsule 300 mg PO BID 30 Days Qty: 60 0RF pantoprazole [address] for susp in packet 40 mg PO DAILY 30 Days Qty: 30 0RF insulin glargine 100 unit/mL solution 30 unit subcut DAILY Qty: 10 0RF insulin lispro [Humalog U-100 Insulin] 100 unit/mL solution 30 unit subcut TID Primary Care Provider: Care Physician,No Primary Referrals: Care Physician,No Primary [Primary Care Provider] - Activity Restrictions/Additional Instructions: Follow-up with the valsartan clinic within the next 3 to 5 days. Disposition Disposition: Home, Self Care Discharge Date/Time: 04/23/23 14:41
--- OUTSIDE RECORDS SUMMARY | 2023-04-23 12:18 | XMS RPT_ITS | CCD ---
Author Name Unknown Address [address] [place] [address] Organization [facility] Care Team Providers Care Spray Maker Name Role Phone VICENTE QURESHI Attending Unavailable VICENTE QURESHI Primary Care Unavailable VICENTE QURESHI Admitting Unavailable Allergies Allergy Classification Reported Allergen(s) Allergy Type Date of Onset Reaction(s) Facility (1 source) Morphine Drug Allergy [facility] Repository (1 source) [place] - fruit; Translations: [ORANGE] Food allergy (disorder) [facility] Repository Results Test Name Value Interpretation Reference Range Facil ity Encounters Encounter Date Encounter Type Care Provider Facility Start: 02-12-2023 End: 02-12-2023 Emergency department patient visit VICENTE QURESHI [facility] Payers Date Payer Category Payer Unknown [id number] Medicaid [id number] Summary Purpose Family History No Family History [...] BE BASED ON THE PRIMARY CLINICAL RECORDS. [employer]. provides no warranty or guarantee of the accuracy or completeness of information in this document.
[2023-04-23 12:33] LABS: International Normalized Ratio 0.9; Prothrombin Time (Protime)PT. 11.7 SECONDS (11.7-14.9)
[2023-04-23 13:00] LABS: Anion Gap 5 (5-15); BUN 16 mg/dL (7-18); BUN/Creat Ratio 20.9 RATIO (10-20); Calcium,Total 9.5 mg/dL (8.5-10.1); Chloride 105 mmol/L (98-107); Creatinine, Serum 0.76 mg/dL (0.55-1.02); EST Glomerular Filtration Rate 91 mL/min (>60); Est Glom Filt Rate - Afr Amer 110 mL/min (>60); Estimated Creatinine Clearance 107.78 ml/min; Glucose 343 mg/dL (74-106); Potassium 4.1 mmol/L (3.5-5.1); Sodium Level 139 mmol/L (136-145)
[2023-04-23 14:39] VITALS: BP 122/74; PULSE 77; RESP 16; O2SAT 99
== END 2023-04-23 14:41 | disposition home or self-care (01) ==
PROVIDERS: Emergency Provider Emergency Medicine; Visit Provider Emergency Medicine
DX: S20.229A Contusion of unspecified back wall of thorax, initial encounter (principal); E10.9 Type 1 diabetes mellitus without complications; Z79.4 Long term (current) use of insulin; I10 Essential (primary) hypertension; E78.5 Hyperlipidemia, unspecified; Z79.82 Long term (current) use of aspirin; Z79.899 Other long term (current) drug therapy; Z79.01 Long term (current) use of anticoagulants; Z86.718 Personal history of other venous thrombosis and embolism; W19.XXXA Unspecified fall, initial encounter; Z87.891 Personal history of nicotine dependence
CPT/HCPCS: 72132; 80048; 85610; 99282; Q9967

== ENCOUNTER 2023-05-14 14:20 | Inpatient (IN) | payer MEDICAID, SELFPAY ==
[2023-05-14] VITALS (12 sets, daily range): BP systolic 130–161; BP diastolic 68–109; PULSE 74–114; RESP 16–20; TEMP 35.7–36.7; O2SAT 95–99; BMI 27.3; BMI 25.9
--- OUTSIDE RECORDS SUMMARY | 2023-05-14 14:50 | XMS RPT_ITS | CCD ---
Author Name Unknown Address [address] [place] [address] Organization [facility] Care Team Providers Care Carbider Name Role Phone VICENTE QURESHI Attending Unavailable VICENTE QURESHI Primary Care Unavailable VICENTE QURESHI Admitting Unavailable Allergies Allergy Classification Reported Allergen(s) Allergy Type Date of Onset Reaction(s) Facility (1 source) Morphine Drug Allergy [facility] Repository (1 source) [place] - fruit; Translations: [ORANGE] Food allergy (disorder) [facility] Repository Results Test Name Value Interpretation Reference Range Facil ity Encounters Encounter Date Encounter Type Care Provider Facility Start: 02-12-2023 End: 02-12-2023 Emergency department patient visit VICENTE QURESHI [facility] Payers Date Payer Category Payer Unknown [id number] Medicaid [id number] Summary Purpose Family History No Family History [...] BE BASED ON THE PRIMARY CLINICAL RECORDS. [facility]. provides no warranty or guarantee of the accuracy or completeness of information in this document.
--- NOTE | 2023-05-14 14:56 | CT_ITS ---
EXAM: CT HEAD WITHOUT INTRAVENOUS CONTRAST CLINICAL INDICATION: headache on coumadin TECHNIQUE: Multiple axial images were obtained of the head without intravenous contrast. This CT exam was performed using one or more of the following dose reduction techniques: automated exposure control, adjustment of the mA and/or kV according to patient size, and/or use of iterative reconstruction technique. RADIATION DOSE: CTDIvol = 44.99 mGy, DLP = 745.49 mGy-cm COMPARISON: No relevant prior studies available. FINDINGS: BRAIN AND EXTRA-AXIAL SPACES: Unremarkable. No intra- or extra-axial hemorrhage. No evidence of acute infarct. No intracranial mass or mass effect. There is preservation of the kaye/white matter interface. Posterior fossa structures are unremarkable. Ventricles are appropriate for age. No hydrocephalus. Basal cisterns are patent. BONES/JOINTS: Unremarkable. No discrete lytic or blastic abnormalities. SINUSES: Unremarkable as visualized. Clear. MASTOID AIR CELLS: Unremarkable. Clear. ORBITS: Visualized globes, extraocular muscles, optic nerves and retrobulbar fat appear unremarkable. CT/Brain/Head without Contrast IMPRESSION: Negative head/brain CT without intravenous contrast. Electronically Signed: Hardik Tucker MD at 15:46 EST ,
--- NOTE | 2023-05-14 14:58 | EX.ED.VIS.HA ---
HPI History of Present Illness Chief Complaint: Lower Extremity Injury Detail of Chief Complaint: Headache. Elevated blood sugar. Right foot discomfort. Informant: patient Onset/Context/Timing Onset: Today Context: Gradual Quality -Headache: Positive for Similar Prior Headaches Current Severity: Moderate Maximum Severity: Moderate Associated Symptoms/Injury Associated Symptoms: Positive for Nausea; Negative for Fever Injury - EMMANUEL: Negative for Direct Trauma, Fall or Assault Narrative Narrative: 37-year-old female history of diabetes, peripheral arterial disease and a left lower extremity below-knee amputation secondary to circulation issues. Currently on Coumadin. States that she has had elevated blood sugars today and a headache consistent with her migraines but has not had a migraine for a while. Denies any fall injury or trauma to her head. She is on Coumadin. She denies any fever or sinus congestion. No neck pain. Also states she is having some mild discomfort in her right foot.Denies any trauma to the foot. Prior similar symptoms: Yes Recent Illness/Hospitalization: No [facility] Medical History Abnormal angiogram Chronic anticoagulation DVT (deep venous thrombosis) HTN (hypertension) Hyperlipidemia Peripheral artery disease Type 1 diabetes mellitus Home Medications aspirin 81 mg tablet,delayed release (Adult Low Dose Aspirin) 81 mg PO DAILY 30 days #30 tabs 03/14/23 [Rx Last Taken Unknown] atorvastatin 40 mg tablet 40 mg PO DAILY 30 days #30 tabs 03/14/23 [Rx Last Taken Unknown] blood sugar diagnostic (Blood Glucose Test strips) #50 ea 03/14/23 [Rx Last Taken Unknown] insulin syr/ndl U100 half ángel 0.3 mL 30 gauge x 1/2 #100 ea 03/14/23 [Rx Last Taken Unknown] lancets 30 gauge #120 units 03/14/23 [Rx Last Taken Unknown] metoprolol succinate 100 mg tablet,extended release 24 hr (Toprol XL) 100 mg PO DAILY 30 days #30 tabs 03/14/23 [Rx Last Taken Unknown] pantoprazole 40 mg granules delayed-release for susp in packet 40 mg PO DAILY 30 days #30 ea 03/14/23 [Rx Last Taken Unknown] pregabalin 300 mg capsule 300 mg PO BID 30 days #60 caps 03/14/23 [Rx Last Taken Unknown] warfarin 5 mg tablet 5 mg PO DAILY 30 days #30 tabs 03/14/23 [Rx Last Taken Unknown] zolpidem 10 mg tablet 10 mg PO QHS PRN insomnia 30 days #30 tabs 03/14/23 [Rx Last Taken Unknown] insulin glargine 100 unit/mL subcutaneous solution 30 unit (0.3 mL) subcut DAILY #10 mL 03/15/23 [Rx Last Taken Unknown] cyclobenzaprine 10 mg tablet 10 mg PO TID PRN Muscle Spasm #20 TABLETS 04/23/23 [Rx Last Taken Unknown] hydrocodone-acetaminophen 5-325mg 5mg-325mg 1 tab PO Q4H PRN PRN Pain 2 days #10 TABLETS 04/23/23 [Rx Last Taken Unknown] insulin lispro 100 unit/mL subcutaneous solution (Humalog U-100 Insulin) 30 unit subcut TID 04/23/23 [History Last Taken Unknown] warfarin 5 mg tablet 5 mg PO DAILY #30 tabs 04/23/23 [Rx Last Taken Unknown] Allergy/AdvReac Type Severity Reaction Status Date / Time morphine Allergy Intermediate Rash Verified 04/13/23 15:55 orange Allergy Rash Verified 04/13/23 15:55 Family History Other Cancer Surgical History S/P BKA (below knee amputation) unilateral Social History Smoking Status: Former smoker ROS ROS ED ROS Narrative Denies recent illness.Headache today. Review of Systems ROS Unobtainable: Denies due to encephalopathy Constitutional Constitutional ED: Denies chills or fever(s) Eyes Eyes: Denies blurry vision ENT ENT ED: Denies ear pain Cardiovascular Cardiovascular: Denies chest pain Respiratory/Chest Respiratory/Chest: Denies cough or dyspnea Gastrointestinal Gastrointestinal: Reports nausea; Denies abdominal pain, constipation, diarrhea, melena or vomiting Genitourinary Genitourinary ED: Denies dysuria or hematuria Musculoskeletal Musculoskeletal: Denies arthralgias, back pain or myalgias Integumentary Denies abscess, Abrasions or rash Neurologic Neurologic: Denies headache(s), paresthesias or weakness Psychiatric Psychiatric: Denies anxiety or depression Endocrine Endocrinology: Denies polydipsia, polyphagia or polyuria Hematologic/Lymphatic Hematologic/Lymphatic: Denies lymphadenopathy Allergic/Immunologic Allergic/Immunologic ED: Denies mouth swelling or tongue swelling EXAM Physical Exam Narrative Exam Narrative: Signs stable afebrile. Rally septic toxic. Life turned in the room due to her headache. H EENT exam pupils round and light. Extra motions are intact. No facial droop. Normal speech. No trauma to her face or scalp. Nontender. Neck nontender no lymphadenopathy. No meningismus. Lungs clear to auscultation bilaterally. Heart regular rhythm no murmur.Chest wall and ribs nontender. Abdomen soft nontender. Moving all 4 extremities. Left below the knee prosthesis. Right calf and foot nontender. No swelling. No cords. No edema. Foot is warm to touch. Positive cap refill. No swelling or redness. No discoloration. No signs of ischemic limb. It is not pale. Is not cold. She has normal sensation. Normal motor strength.Neurologically she is awake and alert. No focal motor deficits.NIH of 0. Const Vital Signs: 05/14/23 14:21 Temperature 96.3 F L Temperature Source Temporal Pulse Rate 114 H Respiratory Rate 16 Blood Pressure 150/99 H Blood Pressure Mean 116 Pulse Ox 99 Oxygen Delivery Method Room Air Positive well nourished and well developed; Negative for obese, cachectic, contractures or unkempt General Appearance ED: well developed and NAD; Negative for unkempt, cachectic, contractures, cyanotic, diaphoretic or pallor Nutritional Appearance: Negative for cachectic or obese HEENT Reports normocephalic and moist mucous membranes; Denies dry mucous membranes atraumatic; Negative for trauma, tenderness, temporal artery tenderness or vesicular rash Face and Sinus: Negative for sinus tenderness Mouth ED: No dry mucous membranes Mouth: No dry mucous membranes Eyes PERRL and EOMs intact bilaterally General Eye ED: Negative for pale conjunctiva, scleral icterus or other Neck no lymphadenopathy, supple, no meningeal signs and no JVD General: Negative for tenderness or other Resp normal respiratory effort and clear to auscultation bilaterally Effort and Inspection: Negative for retractions Auscultation: Negative for rales, rhonchi or wheezes Cardio regular rhythm, S1 normal heart sound, S2 normal heart sound and no murmurs Rate: Negative for bradycardia or tachycardic Rhythm: Negative for abnormal rhythm GI non-tender and non-distended Auscultation: normoactive bowel sounds Palpation: soft; Negative for firm or tender Back/Spine no CVA tenderness General Back: Negative for CVA tenderness Cervical Spine: Negative for cervical spine tenderness Thoracic Spine / Upper Back: Negative for thoracic spinal tenderness Lumbar Spine / Lower Back: Negative for lumbar spinal tenderness Extremity normal to inspection, full ROM and normal capillary refill General Extremety ED: Negative for edema or tenderness General Extremity: Negative for edema Neuro oriented x3 and CN's II-XII intact bilaterally Sensorium / Orientation: awake, alert, oriented to person, oriented to place and oriented to time; Negative for orientation impaired or lethargic Coordination / Balance: [id number] test normal Speech: speech normal Motor Exam: strength 5/5 throughout Psych mental status grossly normal Appearance: Negative for unkempt Attitude: No agitated Mood & Affect: Negative for depressed, anxious or tearful Skin General Skin Exam: Negative for jaundice or pallor Lesions: no lesions Rashes: no rashes Trauma: Negative for abrasion MDM MDM MDM Narrative Medical decision making narrative: 37-year-old female history of migraine headache.. Patient treated with IV fluids, Zofran and Benadryl. She is on Coumadin for clots in her lower extremity and peripheral arterial disease. And CT of the brain will be obtained. Also evaluate blood sugars. She will be treated with IV fluids and screening labs to be obtained. Coumadin level and serum acetone will be obtained to rule out DKA. Repeat exam patient doing fine at 3:55 PM. She and I discussed her test results. Hospitalist on page for admission. Given fentanyl for pain. I rechecked her right foot is still warm to the touch. There is no swelling. There is no discoloration.I will discuss with the hospitalist but I suspect she will be started on an insulin drip.Nurses did Doppler the right foot and she has a good DP pulse. Which is consistent with her exam. History & Record Review Discussion w/independent historian: Patient Additional record(s) reviewed:: Prior inpatient record, Prior outpatient record, Prior ED visit and Prior labs Lab Data Attestation: I reviewed the patient's lab results. Lab results narrative: CBC normal. White count 8. H&H 14 and 40. Platelets 249. Serum acetone small.CT brain negative. No bleed. Chemistries show a sodium 135. Gap of 16 which is elevated.BUN of 19 creatinine of 1.2. Glucose is 729.With an elevated anion gap and elevated serum acetone this will be treated as DKA. Labs: Laboratory Results - last 24 hr 05/14/23 05/14/23 15:08 15:48 WBC 8.6 RBC 5.22 Hgb 14.9 Hct 40.0 MCV 76.6 L MCH 28.5 MCHC 37.3 H RDW Std Deviation 35.1 RDW Coeff of Gerard 12.8 Plt Count 249 MPV 11.7 Immature Gran % (Auto) 0.300 Neut % (Auto) 72.5 H Lymph % (Auto) 21.4 [place] % (Auto) 4.4 Eos % (Auto) 0.8 Baso % (Auto) 0.6 Absolute Neuts (auto) 6.2 Absolute Lymphs (auto) 1.84 Nucleated RBC % 0 PT Cancelled INR Cancelled Sodium 135 L Potassium 5.0 Chloride 99 Carbon Dioxide 20.0 L Anion Gap 16 H BUN 19 H Creatinine 1.20 H Estim Creat Clear Calc 67.91 Est GFR (MDRD) Af Amer 65 Est GFR (MDRD) Non-Af 54 L BUN/Creatinine Ratio 15.8 Glucose 729 H* Calcium 8.9 Acetone Level SMALL H Radiography Diagnostic Testing: Clinical Impression(s) from Imaging Studies Brain CT 05/14/23 14:56 IMPRESSION: Negative head/brain CT without intravenous contrast. Electronically Signed: Hardik Tucker MD at 15:46 EST , Critical Care Time Critical Care Time: Yes Critical care time (excluding procedures): 30-74 minutes, Discussing w/Patient &/or Family/Sound Truck Operator, Discussing w/Consultants, Arranging Admission or Transfer, Performing Direct Patient Care at Bedside and - (35 min) Discharge Plan Dx/Rx/DC Orders Clinical Impression: Diabetic keto-acidosis, Chronic anticoagulation, Headache, History of peripheral arterial disease, History of below-knee amputation of left lower extremity Disposition Disposition: [facility]
[2023-05-14] MEDS: DiphenhydrAMINE 50 MG/ML Syringe 25 MG IV (15:12)
[2023-05-14] MEDS: 0.9% Normal Saline (1000mL) 1,000 ML 1000 ML IV (15:12)
[2023-05-14] MEDS: Ondansetron 4 MG/2 ML Vial IV ×2 (15:12→21:06)
[2023-05-14 15:17] LABS: Absolute Lymphocyte Count 1.84 X10^3/uL (0.83-4.51); Absolute Neutrophil Count 6.2 X10^3/uL (2.0-7.7); Basophil# 0.05 X10^3/uL; Basophil% 0.6 % (0-1); Eosinophil# 0.07 X10^3/uL; Eosinophils% 0.8 % (0-5); Hemoglobin 14.9 g/dL (12.0-15.0); Lymphocyte # 1.84 X10^3/ul (0.83-4.51); Lymphocyte % 21.4 % (19-41); Mean Corp Hgb Conc 37.3 g/dL (32-36); Mean Corpuscular Hgb 28.5 pg (27.0-32.0); Mean Corpuscular Volume 76.6 fL (81-99); Mean Platelet Vol. 11.7 fl (6.2-12.0); Monocyte# 0.38 X10^3/uL; Monocyte% 4.4 % (0-10); NRBC Flagged by Analyzer 0 % (0-5); Neutrophil # 6.23 X10^3/uL (2.7-7.7); Neutrophil % 72.5 % (47-70); Platelet Count 249 K/mm3 (150-450); RBC Distribution Width CV 12.8 % (11.6-14.6); RBC Distribution Width SD 35.1 fl (35.1-43.9); Red Blood Count 5.22 M/mm3 (4.2-5.4); White Blood Count 8.6 K/mm3 (4.4-11.0)
[2023-05-14 15:53] LABS: Anion Gap 16 (5-15); BUN 19 mg/dL (7-18); BUN/Creat Ratio 15.8 RATIO (10-20); Calcium,Total 8.9 mg/dL (8.5-10.1); Chloride 99 mmol/L (98-107); EST Glomerular Filtration Rate 54 mL/min (>60); Est Glom Filt Rate - Afr Amer 65 mL/min (>60); Estimated Creatinine Clearance 67.91 ml/min; Glucose 729 mg/dL (74-106); Sodium Level 135 mmol/L (136-145)
[2023-05-14] MEDS: fentaNYL 100 MCG/2 ML Ampul 50 MCG IV (16:02)
--- NOTE | 2023-05-14 16:07 | ED.RN ---
Pt has insulin pump, unsure of how much she gets.
--- NOTE | 2023-05-14 16:14 | ED.RN ---
+2 pulse in R pedal with Doppler, marked with pen. L leg below knee amputation, unable to Doppler.
[2023-05-14 16:38] LABS: International Normalized Ratio 0.9; Prothrombin Time (Protime)PT. 11.6 SECONDS (11.7-14.9)
[2023-05-14] MEDS: 0.9% Normal Saline (1000mL) 1,000 ML 999 ML IV (16:39)
[2023-05-14] MEDS: Insulin Lispro 100 UNIT in 0.9% Normal Saline (100mL Bag) 99 ML 7.70000000000000018 UNIT CONT INF (16:53)
--- OUTSIDE RECORDS SUMMARY | 2023-05-14 16:55 | XMS RPT_ITS | CCD ---
Author Name Unknown Address [address] [place] [address] Organization [facility] Care Team Providers Care Television Reporter Name Role Phone VICENTE QURESHI Attending Unavailable VICENTE QURESHI Primary Care Unavailable VICENTE QURESHI Admitting Unavailable Allergies Allergy Classification Reported Allergen(s) Allergy Type Date of Onset Reaction(s) Facility (1 source) Morphine Drug Allergy [facility] Repository (1 source) [place] - fruit; Translations: [ORANGE] Food allergy (disorder) [facility] Repository Results Test Name Value Interpretation Reference Range Facil ity Encounters Encounter Date Encounter Type Care Provider Facility Start: 02-12-2023 End: 02-12-2023 Emergency department patient visit VICENTE QURESHI [facility] Payers Date Payer Category Payer Unknown [id number] Medicaid [id number] Summary Purpose Family History No Family History [...] BE BASED ON THE PRIMARY CLINICAL RECORDS. [employer] provides no warranty or guarantee of the accuracy or completeness of information in this document.
--- NOTE | 2023-05-14 17:00 | ED.RN ---
Verified insulin drip with Laura ZIMMER before administration.
[2023-05-14 17:16] LABS: Bedside Glucose > 500 mg/dL (74-106)
--- NOTE | 2023-05-14 17:30 | PCM.HP.STD ---
HPI - General General Date of Admission: 05/14/23 Date of Service: 05/14/23 Chief Complaint: Headache, foot pain HPI Narrative VENANCIO TAVAREZ, is a 37 F history of left lower extremity amputation due to peripheral arterial disease, DVT on Coumadin, GERD, hypertension, type 1 diabetes mellitus presented to [facility] ED 05/14/2023 for several complaints. Reports she has had headache consistent with her migraines and some mild discomfort in right foot, CT head negative and right lower extremity with good pulses and no significant abnormalities but patient found to be in DKA with an anion gap of 16, glucose of 729 and small acetone so hospitalist contacted for admission for DKA. Patient evaluated at bedside and reports that she has a headache that is similar to her usual migraines with some light sensitivity and nausea, also has been having some intermittent pain in her right foot since yesterday mostly into her right big toe and was concerned due to her loss of her left limb from peripheral arterial disease. Does report the sensor of her pump broke so she has been bolusing herself with insulin with no basal and is not sure what a typical regimen for her is like. Supposed to establish with Endo next month and vascular next month. Denies any other acute complaints. [facility] Medical History (Updated 05/14/23 @ 17:[address] Annemarie Rizzo MD) Abnormal angiogram Chronic anticoagulation DVT (deep venous thrombosis) HTN (hypertension) Hyperlipidemia Peripheral artery disease Type 1 diabetes mellitus Home Medications aspirin 81 mg tablet,delayed release (Adult Low Dose Aspirin) 81 mg PO DAILY 30 days #30 tabs 03/14/23 [Rx Last Taken Unknown] atorvastatin 40 mg tablet 40 mg PO DAILY 30 days #30 tabs 03/14/23 [Rx Last Taken Unknown] blood sugar diagnostic (Blood Glucose Test strips) #50 ea 03/14/23 [Rx Last Taken Unknown] insulin syr/ndl U100 half ángel 0.3 mL 30 gauge x 1/2 #100 ea 03/14/23 [Rx Last Taken Unknown] lancets 30 gauge #120 units 03/14/23 [Rx Last Taken Unknown] metoprolol succinate 100 mg tablet,extended release 24 hr (Toprol XL) 100 mg PO DAILY 30 days #30 tabs 03/14/23 [Rx Last Taken Unknown] pregabalin 300 mg capsule 300 mg PO BID 30 days #60 caps 03/14/23 [Rx Last Taken Unknown] zolpidem 10 mg tablet 10 mg PO QHS PRN insomnia 30 days #30 tabs 03/14/23 [Rx Last Taken Unknown] warfarin 5 mg tablet 5 mg PO DAILY #30 tabs 04/23/23 [Rx Last Taken Unknown] pantoprazole 40 mg granules delayed-release for susp in packet 40 mg PO BID 05/14/23 [History Last Taken Unknown] Allergy/AdvReac Type Severity Reaction Status Date / Time morphine Allergy Intermediate Rash Verified 04/13/23 15:55 orange Allergy Rash Verified 04/13/23 15:55 Family History Other Cancer Surgical History (Updated 05/14/23 @ 16:[address] Jared Condon MD) S/P BKA (below knee amputation) unilateral Social History Smoking Status: Former smoker ROS ROS Narrative General: Denies fever/chills HENT: Has migraine with some light sensitivity, denies stuffy nose, denies sore throat EYES: Chronic problems with vision Resp: Denies cough, denies shortness of breath Cardiac: Denies chest pain GI: Denies abdominal pain, denies changes in bowel, has some nausea with her headache : Denies changes in urination Extremity: Denies swelling MSK: Left lower extremity amputation, some intermittent pain in right foot primarily into the toe Neuro: Denies any numbness/tingling Heme: Denies any bleeding or bruising Skin: Denies rashes Psychiatric: No complaints voiced Vital Signs Vital Signs Vital Signs: 05/14/23 14:21 05/14/23 16:44 Temperature 96.3 F L Temperature Source Temporal Pulse Rate 114 H 88 Respiratory Rate 16 17 Blood Pressure 150/99 H 150/88 H Blood Pressure Mean 116 108 Pulse Ox 99 99 Oxygen Delivery Method Room Air Weight Weight: 76.975 kg Body Mass Index (BMI) 27.3 Physical Exam Narrative General: Alert, oriented, resting in bed with lights off HEENT: Atraumatic, normocephalic Eyes: Anicteric, normal conjunctiva, extraocular movements grossly intact Neck: Supple Respiratory: Clear to auscultation bilaterally, normal respiratory effort Cardiovascular: Slightly tachycardic GI: Soft, little bit of left-sided abdominal tenderness no rebound, guarding, rigidity, nondistended Extremities: No edema Musculoskeletal: Left lower extremity amputation, right lower extremity warm, palpable pulses Neuro: No overt focal neurological deficits Skin: No rashes appreciated Psych: Cooperative Results Lab / Micro Data 05/14/23 15:08 05/14/23 15:08 Labs: Laboratory Results - last 24 hr 05/14/23 15:08: WBC 8.6, RBC 5.22, Hgb 14.9, Hct 40.0, MCV 76.6 L, MCH 28.5, MCHC 37.3 H, RDW Std Deviation 35.1, RDW Coeff of Gerard 12.8, Plt Count 249, MPV 11.7, Immature Gran % (Auto) 0.300, Neut % (Auto) 72.5 H, Lymph % (Auto) 21.4, [place] % (Auto) 4.4, Eos % (Auto) 0.8, Baso % (Auto) 0.6, Absolute Neuts (auto) 6.2, Absolute Lymphs (auto) 1.84, Nucleated RBC % 0, Sodium 135 L, Potassium 5.0, Chloride 99, Carbon Dioxide 20.0 L, Anion Gap 16 H, BUN 19 H, Creatinine 1.20 H, Estim Creat Clear Calc 67.91, Est GFR (MDRD) Af Amer 65, Est GFR (MDRD) Non-Af 54 L, BUN/Creatinine Ratio 15.8, Glucose 729 H*, Calcium 8.9, Acetone Level SMALL H 05/14/23 15:48: PT Cancelled, INR Cancelled 05/14/23 16:10: PT 11.6 L, INR 0.9 05/14/23 16:57: POC Glucose > 500 H* Imaging Radiology Impression Brain CT 05/14/23 14:56 IMPRESSION: Negative head/brain CT without intravenous contrast. Electronically Signed: Hardik Tucker MD at 15:46 EST , Assessment & Plan Assessment/Plan (1) Diabetic keto-acidosis: (2) Type 1 diabetes mellitus: (3) History of peripheral arterial disease: (4) History of below-knee amputation of left lower extremity: (5) Headache: (6) Chronic anticoagulation: (7) DVT (deep venous thrombosis): PLAN: Plan #DKA in setting of chronic type 1 diabetes -Serum glucose in ED 729, anion gap 16 -Serum acetone small -Admit to intensive care unit -N.p.o. -Insulin drip started -Aggressive fluid hydration -Glucose checks and DKA protocol -BMP every 4H -Replace electrolytes per protocol -I's and O's -A1c in the a.m. -When serum glucose is <250 mg/dl, change IV fluids to D5%1/2NS at 150 ml/hr and continue insulin drip as per nomogram # PAD -Status post left lower extremity amputation -Reports she has been having some pain in her right lower extremity that she is concerned about -Extremity is warm and pulses palpable -Will obtain vascular studies given her intermittent pain but present limb seems to be warm and well-perfused -Continue aspirin and statin #Migraine -As needed medication, may improve with fluids and treatment of her DKA #Hx DVT -On coumadin -Subtherapeutic, will need to increase dosing -Monitor INR # CKD unclear subtype -This better than it had been previously however on 04/23 0.76 and today 1.2, appears to have very variable baseline -Will hydrate per DKA protocol #GERD -Continue PPI #DVT ppx: Lovenox subcu while Coumadin subtherapeutic Annemarie Rizzo MD Charges/Coding Visit Charges Inpatient E&M: 24011 Init Hosp L1
--- NOTE | 2023-05-14 17:43 | ADUL_ITS ---
Reason For Study: Pain, PAD Right Velocities Ext. Iliac Artery, prox = 178.3 cm./sec. Common Femoral Artery, prox = 173.4 cm./sec. Common Femoral Artery, mid = 163 cm./sec. Supf Femoral Artery, prox = 78.5 cm./sec. Supf Femoral Artery, mid = 67.4 cm./sec. SFA mid/distal, No Flow. SFA mid/distal, distal to occlusion, 242.9 cm/sec. Supf Femoral Artery, dist. = 53.9 cm./sec. Profunda Femoral Artery = 134.5 cm./sec. Popliteal Artery, mid = 44.1 cm./sec. Post. Tibial Artery, prox = 25.4 cm./sec. Post. Tibial Artery, mid = 27.3 cm./sec. Post. Tibial Artery, dist = 33.9 cm./sec. Peroneal Artery, prox = 30.1 cm./sec. Peroneal Artery, mid = 28.2 cm./sec. Peroneal Artery,dist = 31.1 cm./sec. Ant. Tibial Artery, prox = 52.8 cm./sec. Ant. Tibial Artery, mid = 76.1 cm./sec. Ant. Tibial Artery, dist = 82 cm./sec. Procedure Exam performed portable in patient room. /US Art Duplex Unilat Lower Ext Interpretation Summary Right lower extremity with superficial femoral artery occlusion and reconstitut ion of distal vessel. Ordering Physician: Annemarie Rizzo Referring Physician: [place] Performed By: Kamilla La RVT
[2023-05-14] MEDS: 0.9% Normal Saline (1000mL) 1,000 ML 500 ML IV (18:04)
--- OUTSIDE RECORDS SUMMARY | 2023-05-14 18:08 | XMS RPT_ITS | CCD ---
Author Name Unknown Address [address] [place] [address] Organization [facility] Care Team Providers Care Document Controller Name Role Phone VICENTE QURESHI Attending Unavailable VICENTE QURESHI Primary Care Unavailable VICENTE QURESHI Admitting Unavailable Allergies Allergy Classification Reported Allergen(s) Allergy Type Date of Onset Reaction(s) Facility (1 source) Morphine Drug Allergy [facility] Repository (1 source) [place] - fruit; Translations: [ORANGE] Food allergy (disorder) [facility] Repository Results Test Name Value Interpretation Reference Range Facil ity Encounters Encounter Date Encounter Type Care Provider Facility Start: 02-12-2023 End: 02-12-2023 Emergency department patient visit VICENTE QURESHI [facility] Payers Date Payer Category Payer Unknown [id number] Medicaid [id number] Summary Purpose Family History No Family History [...] BE BASED ON THE PRIMARY CLINICAL RECORDS. [employer] provides no warranty or guarantee of the accuracy or completeness of information in this document.
[2023-05-14] MEDS: HYDROmorphone Inj 0.2 MG/ML SYRINGE 0.200000000000000011 MG IV ×2 (18:09→21:00)
[2023-05-14] MEDS: 0.9% Saline Lock 10 ML Syringe IV (18:09)
[2023-05-14 18:22] LABS: Bedside Glucose 469 mg/dL (74-106)
[2023-05-14 19:12] LABS: Bedside Glucose 351 mg/dL (74-106)
[2023-05-14 19:16] LABS: Anion Gap 9 (5-15); BUN 17 mg/dL (7-18); BUN/Creat Ratio 19.5 RATIO (10-20); Calcium,Total 8.3 mg/dL (8.5-10.1); Chloride 109 mmol/L (98-107); Creatinine, Serum 0.87 mg/dL (0.55-1.02); EST Glomerular Filtration Rate 78 mL/min (>60); Est Glom Filt Rate - Afr Amer 95 mL/min (>60); Estimated Creatinine Clearance 91.48 ml/min; Glucose 412 mg/dL (74-106); Magnesium 1.6 mg/dL (1.6-2.6); Potassium 4.9 mmol/L (3.5-5.1); Sodium Level 139 mmol/L (136-145)
[2023-05-14 19:17] LABS: Hemoglobin A1c 8.7 % (3.8-5.6)
[2023-05-14] MEDS: Acetaminophen 325 MG Tablet 650 MG PO (20:03)
[2023-05-14] MEDS: oxyCODONE 5 MG Tablet PO (20:04)
[2023-05-14] MEDS: 0.9% Normal Saline (1000mL) 1,000 ML 250 ML IV (20:08)
[2023-05-14 20:18] LABS: Bedside Glucose 301 mg/dL (74-106)
[2023-05-14] MEDS: Pregabalin 75 MG Capsule 300 MG PO (20:54)
[2023-05-14] MEDS: Pantoprazole Sodium 40 MG Tablet PO (20:54)
[2023-05-14] MEDS: Atorvastatin Calcium 40 MG Tablet PO (20:54)
[2023-05-14 21:14] LABS: Bedside Glucose 295 mg/dL (74-106)
[2023-05-14] MEDS: Zolpidem Tartrate 5 MG Tablet 10 MG PO (21:57)
[2023-05-14 22:20] LABS: Bedside Glucose 272 mg/dL (74-106)
[2023-05-14 23:38] LABS: Bedside Glucose 256 mg/dL (74-106)
[2023-05-14] MEDS: Dext 5%-0.45% NS 1,000 ML 150 ML IV (23:50)
[2023-05-14 23:55] LABS: Anion Gap 9 (5-15); BUN 13 mg/dL (7-18); BUN/Creat Ratio 19.9 RATIO (10-20); Chloride 112 mmol/L (98-107); Creatinine, Serum 0.65 mg/dL (0.55-1.02); EST Glomerular Filtration Rate 109 mL/min (>60); Est Glom Filt Rate - Afr Amer 131 mL/min (>60); Estimated Creatinine Clearance 122.44 ml/min; Glucose 312 mg/dL (74-106); Potassium 3.7 mmol/L (3.5-5.1); Sodium Level 142 mmol/L (136-145)
[2023-05-15] VITALS: BP 153/88; PULSE 77; RESP 21; TEMP 36.4; O2SAT 94
[2023-05-15 00:08] LABS: Bedside Glucose 231 mg/dL (74-106)
[2023-05-15] MEDS: 0.45% Normal Saline 1,000 ML 75 ML IV (00:51)
[2023-05-15 01:10] LABS: Bedside Glucose 242 mg/dL (74-106)
[2023-05-15] MEDS: Insulin Glargine-YFGN 100 UNIT/ML Pen 15 UNIT SC (01:45)
[2023-05-15] MEDS: Potassium Chloride 10mEq/100mL 10 MEQ/100 ML IV.SOLN. 100 MEQ IV BOLUS ×4 (01:51→07:22)
[2023-05-15] MEDS: HYDROmorphone Inj 0.2 MG/ML SYRINGE 0.200000000000000011 MG IV ×3 (01:58→08:09)
[2023-05-15] MEDS: 0.9% Saline Lock 10 ML Syringe IV ×2 (01:58→05:05)
[2023-05-15 02:00] VITALS: BP 150/95; PULSE 74; PULSE 79; RESP 16; RESP 18; TEMP 36.6; O2SAT 95; O2SAT 96
[2023-05-15 02:11] LABS: Bedside Glucose 224 mg/dL (74-106)
[2023-05-15 02:40] VITALS: BMI 27.1
[2023-05-15 03:18] LABS: Bedside Glucose 256 mg/dL (74-106)
[2023-05-15 04:34] LABS: Bedside Glucose 284 mg/dL (74-106)
[2023-05-15 06:40] LABS: Absolute Lymphocyte Count 2.42 X10^3/uL (0.83-4.51); Absolute Neutrophil Count 3.7 X10^3/uL (2.0-7.7); Basophil# 0.03 X10^3/uL; Basophil% 0.4 % (0-1); Eosinophil# 0.17 X10^3/uL; Eosinophils% 2.5 % (0-5); Hematocrit 33.3 % (37-47); Hemoglobin 11.6 g/dL (12.0-15.0); Lymphocyte # 2.42 X10^3/ul (0.83-4.51); Lymphocyte % 36.3 % (19-41); Mean Corp Hgb Conc 34.8 g/dL (32-36); Mean Corpuscular Hgb 27.2 pg (27.0-32.0); Mean Corpuscular Volume 78.2 fL (81-99); Mean Platelet Vol. 12.2 fl (6.2-12.0); Monocyte# 0.38 X10^3/uL; Monocyte% 5.7 % (0-10); NRBC Flagged by Analyzer 0 % (0-5); Neutrophil # 3.66 X10^3/uL (2.7-7.7); Platelet Count 156 K/mm3 (150-450); RBC Distribution Width CV 13.1 % (11.6-14.6); RBC Distribution Width SD 36.8 fl (35.1-43.9); Red Blood Count 4.26 M/mm3 (4.2-5.4); White Blood Count 6.7 K/mm3 (4.4-11.0)
[2023-05-15 06:48] LABS: AST(SGOT) 14 U/L (15-37); Alanine Aminotransfer ALT/SGPT 18 U/L (13-56); Alkaline Phosphatase 64 U/L (45-117); Anion Gap 6 (5-15); BUN 11 mg/dL (7-18); BUN/Creat Ratio 18.2 RATIO (10-20); Calcium,Total 8.1 mg/dL (8.5-10.1); Chloride 111 mmol/L (98-107); Creatinine, Serum 0.61 mg/dL (0.55-1.02); EST Glomerular Filtration Rate 119 mL/min (>60); Est Glom Filt Rate - Afr Amer 143 mL/min (>60); Estimated Creatinine Clearance 132.88 ml/min; Glucose 311 mg/dL (74-106); Potassium 4.2 mmol/L (3.5-5.1); Sodium Level 139 mmol/L (136-145)
[2023-05-15 08:00] VITALS: BP 163/88; PULSE 74; RESP 15; TEMP 36.6; O2SAT 97
[2023-05-15 08:21] LABS: Bedside Glucose 330 mg/dL (74-106)
[2023-05-15 08:24] LABS: International Normalized Ratio 1.9; Prothrombin Time (Protime)PT. 21.8 SECONDS (11.7-14.9)
[2023-05-15] MEDS: Insulin Lispro 100 UNIT/ML INSULN.PEN SC (08:58)
[2023-05-15] MEDS: Aspirin E.C. 81 MG Tablet PO (08:59)
[2023-05-15] MEDS: Enoxaparin 40 MG/0.4 ML Syringe SC (08:59)
[2023-05-15 09:00] VITALS: PULSE 87
[2023-05-15] MEDS: Pantoprazole Sodium 40 MG Tablet PO (09:00)
[2023-05-15] MEDS: Metoprolol(XL)Succ 100 MG Tablet PO (09:00)
[2023-05-15] MEDS: Pregabalin 75 MG Capsule 300 MG PO (09:15)
--- NOTE | 2023-05-15 10:42 | CASEMGMT ---
MESHA NUNEZ Assessment: Face to Face with pt for initial transition planning/care coordination assessment. RN CM introduced self and role at [facility], pt voices understanding and consents to assessment. Pt is A&O x4 and answers all questions appropriately at this time. Pt sitting up in bed with at bedside. Care providers, pharmacy, and demographics verified/updated. Admitting Dx: DKA PCP:Leticia Vega Specialists:Pt has upcoming appts with 's office and in the next month Preferred Pharmacy: [facility] Retail Insurance: [employer] Prescription Benefit: yes LNOK: Elvis Foreman, Living Arrangements: Pt lives with and 3 children in a two story home with 3 steps to enter. Pt reports she is I in ADL's and denies concerns at home. Transportation: Pt drives self and denies concerns with transportation. DME:prosthetic, BGM with sufficient strips and lancets, FWW, w/c HHC/SNF: Denies hx of Pt states no concerns with going home at time of dc. Pt states her sensor on her insulin pump was faulty. She has another one on order but it will not be shipped until the . Pt states no further concerns/needs. CM to follow. Advised pt to ask CM if any further question/concerns/needs arise, voices understanding. Pt Goal: Home Plan: Home
--- NOTE | 2023-05-15 10:47 | DCINST_ITS ---
Discharge Instructions Diet Discharge Diet: 1800 Calorie Control Diet Activity Discharge Activity: Return to Normal Activity Weight Bearing Status: Full weight bearing Follow Up Care Test Results: Test results from this visit will be discussed in further detail at your follow- up appointment, if applicable. Discharge Plan Admission Admit Date/Time: 05/14/23 17:30 Primary Reason for Your Visit: DKA Attending Provider: Ángel Sales [facility] Providers: Annemarie Rizzo Discharge Orders/Prescriptions Prescriptions: New insulin glargine-yfgn 100 unit/mL (3 mL) Insulin Pen 35 unit subcut BIDCM Qty: 0 0RF insulin lispro [Humalog KwikPen Insulin] 100 unit/mL insulin pen 35 unit subcut TID Qty: 15 0RF Continued atorvastatin 40 mg tablet 40 mg PO DAILY 30 Days Qty: 30 0RF metoprolol succinate [Toprol XL] 100 mg tablet extended release 24 hr 100 mg PO DAILY 30 Days Qty: 30 0RF aspirin [Adult Low Dose Aspirin] 81 mg tablet,delayed release (DR/EC) 81 mg PO DAILY 30 Days Qty: 30 0RF zolpidem 10 mg tablet 10 mg PO QHS PRN (Reason: insomnia) 30 Days Qty: 30 0RF pregabalin 300 mg capsule 300 mg PO BID 30 Days Qty: 60 0RF warfarin 5 mg tablet 5 mg PO DAILY Qty: 30 0RF pantoprazole [address] for susp in packet 40 mg PO BID No Action (DME) lancets 30 gauge misc See Rx Instructions .Route Qty: 120 0RF Rx Instructions: As directed (DME) Blood Glucose Test Strip See Rx Instructions .Route Qty: 50 3RF Rx Instructions: As directed (DME) insulin syr/ndl U100 half ángel 0.3 mL 30 gauge x 1/2 syringe See Rx Instructions .Route Qty: 100 0RF Rx Instructions: As directed [facility] - Within 2 Weeks Disposition Disposition (needs filled in before D/C Order can be placed): Home, Self Care
--- NOTE | 2023-05-15 10:58 | PCM.DC.SUM ---
Providers Date of Admission: 05/14/23 Date of Discharge: 05/15/23 Primary Care Physician: [facility] Reason For Visit: DKA Diagnosis Discharge Diagnosis (1) Diabetic keto-acidosis: Status: Acute Code(s): E11.10 - Type 2 diabetes mellitus with ketoacidosis without coma (2) Type 1 diabetes mellitus: Status: Acute Code(s): E10.9 - Type 1 diabetes mellitus without complications (3) History of peripheral arterial disease: Status: Acute Code(s): Z86.79 - Personal history of other diseases of the circulatory system (4) History of below-knee amputation of left lower extremity: Status: Acute Code(s): Z89.512 - Acquired absence of left leg below knee (5) Headache: Status: Acute Code(s): R51.9 - Headache, unspecified (6) Chronic anticoagulation: Status: Acute Code(s): 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 Diabetic ketoacidosis with uncontrolled type 1 diabetes #2 peripheral vascular disease #3 chronic migraines #4 diabetic neuropathy #5 use of chronic anticoagulant Medications at Discharge Home Medications aspirin 81 mg tablet,delayed release (Adult Low Dose Aspirin) 81 mg PO DAILY 30 days #30 tabs 03/14/23 atorvastatin 40 mg tablet 40 mg PO DAILY 30 days #30 tabs 03/14/23 blood sugar diagnostic (Blood Glucose Test strips) #50 ea 03/14/23 insulin syr/ndl U100 half ángel 0.3 mL 30 gauge x 1/2 #100 ea 03/14/23 lancets 30 gauge #120 units 03/14/23 metoprolol succinate 100 mg tablet,extended release 24 hr (Toprol XL) 100 mg PO DAILY 30 days #30 tabs 03/14/23 pregabalin 300 mg capsule 300 mg PO BID 30 days #60 caps 03/14/23 zolpidem 10 mg tablet 10 mg PO QHS PRN insomnia 30 days #30 tabs 03/14/23 warfarin 5 mg tablet 5 mg PO DAILY #30 tabs 04/23/23 pantoprazole 40 mg granules delayed-release for susp in packet 40 mg PO BID 05/14/23 insulin glargine-yfgn 100 unit/mL (3 mL) subcutaneous pen 35 unit (0.35 mL) subcut BIDCM #0 mL 05/15/23 insulin lispro 100 unit/mL subcutaneous pen (Humalog KwikPen (U-100) Insulin) 35 unit (0.35 mL) subcut TID #15 mL 05/15/23 Hospital Course Operations None Procedures None Summary of Care Provided Minutes Spent on Discharge: 30 Hospital Course: This 37-year-old white female was seen in the emergency room with a chief complaint of headache and elevated blood sugar, she is a type I diabetic and has a nonfunctioning insulin pump at this time. Lab obtained in the emergency room showed a normal CBC, patient's anion gap was elevated at 16, creatinine was 1.2 and BUN was 19. Patient's glucose was 729 and acetone level was small. Patient was admitted to ICU and placed on insulin drip for DKA, her blood sugars normalized fairly rapidly and her anion gap closed. I provided the patient for prescription for Lantus insulin and Humalog at the time of her discharge. On 05/15/2023, patient was seen and examined: On examination she appeared in good health and spirits, she does not appear to be in any distress. Vital signs as documented. Skin warm and dry and without overt rashes. Neck without JVD, thyroid appears normal, trachea is midline, neck is supple. Lungs clear, normal air movement was noted. Heart exam notable for regular rhythm, normal sounds and absence of murmurs, rubs or gallops. Abdomen unremarkable and without evidence of organomegaly, masses, or abdominal aortic enlargement, bowel sounds are present in all 4 quadrants, no abdominal tenderness was noted. Extremities nonedematous, no cyanosis was noted, no clubbing was noted, patient has a left below the knee amputation which is remote. Neuro: Cranial nerves II through XII are grossly intact, no focal motor deficits were noted, sensation to light touch and pinprick is intact, motor exam 5/5 throughout. Psych: Patient is alert and oriented x3, she does not appear anxious or depressed, she does not appear agitated. Patient was discharged in stable condition to home. Weight / BMI Weight Weight: 76.1 kg Body Mass Index (BMI) 27.1 ABG / Lab / Microbiology Data 05/15/23 04:15 05/15/23 04:15 Laboratory: Laboratory Results - last 24 hr 05/14/23 15:00: Hemoglobin A1c 8.7 H 05/14/23 15:08: WBC 8.6, RBC 5.22, Hgb 14.9, Hct 40.0, MCV 76.6 L, MCH 28.5, MCHC 37.3 H, RDW Std Deviation 35.1, RDW Coeff of Gerard 12.8, Plt Count 249, MPV 11.7, Immature Gran % (Auto) 0.300, Neut % (Auto) 72.5 H, Lymph % (Auto) 21.4, [place] % (Auto) 4.4, Eos % (Auto) 0.8, Baso % (Auto) 0.6, Absolute Neuts (auto) 6.2, Absolute Lymphs (auto) 1.84, Nucleated RBC % 0, Sodium 135 L, Potassium 5.0, Chloride 99, Carbon Dioxide 20.0 L, Anion Gap 16 H, BUN 19 H, Creatinine 1.20 H, Estim Creat Clear Calc 67.91, Est GFR (MDRD) Af Amer 65, Est GFR (MDRD) Non-Af 54 L, BUN/Creatinine Ratio 15.8, Glucose 729 H*, Calcium 8.9, Acetone Level SMALL H 05/14/23 15:48: PT Cancelled, INR Cancelled 05/14/23 16:10: PT 11.6 L, INR 0.9 05/14/23 16:57: POC Glucose > 500 H* 05/14/23 17:41: POC Glucose 469 H* 05/14/23 18:45: Sodium 139, Potassium 4.9, Chloride 109 H, Carbon Dioxide 21.0, Anion Gap 9, BUN 17, Creatinine 0.87, Estim Creat Clear Calc 91.48, Est GFR (MDRD) Af Amer 95, Est GFR (MDRD) Non-Af 78, BUN/Creatinine Ratio 19.5, Glucose 412 H, Calcium 8.3 L, Magnesium 1.6 05/14/23 18:50: POC Glucose 351 H 05/14/23 19:52: POC Glucose 301 H 05/14/23 20:51: POC Glucose 295 H 05/14/23 21:52: POC Glucose 272 H 05/14/23 22:48: POC Glucose 256 H 05/14/23 22:55: Sodium 142, Potassium 3.7, Chloride 112 H, Carbon Dioxide 21.0, Anion Gap 9, BUN 13, Creatinine 0.65, Estim Creat Clear Calc 122.44, Est GFR (MDRD) Af Amer 131, Est GFR (MDRD) Non-Af 109, BUN/Creatinine Ratio 19.9, Glucose 312 H, Calcium 8.0 L 05/14/23 23:51: POC Glucose 231 H 05/15/23 00:49: POC Glucose 242 H 05/15/23 01:44: POC Glucose 224 H 05/15/23 03:00: POC Glucose 256 H 05/15/23 04:11: POC Glucose 284 H 05/15/23 04:15: WBC 6.7, RBC 4.26, Hgb 11.6 L, Hct 33.3 L, MCV 78.2 L, MCH 27.2, MCHC 34.8 D, RDW Std Deviation 36.8, RDW Coeff of Gerard 13.1, Plt Count 156, MPV 12.2 H, Immature Gran % (Auto) 0.100, Neut % (Auto) 55.0, Lymph % (Auto) 36.3, [place] % (Auto) 5.7, Eos % (Auto) 2.5, Baso % (Auto) 0.4, Absolute Neuts (auto) 3.7, Absolute Lymphs (auto) 2.42, Nucleated RBC % 0, PT 21.8 H, INR 1.9, Sodium 139, Potassium 4.2, Chloride 111 H, Carbon Dioxide 22.0, Anion Gap 6, BUN 11, Creatinine 0.61, Estim Creat Clear Calc 132.88, Est GFR (MDRD) Af Amer 143, Est GFR (MDRD) Non-Af 119, BUN/Creatinine Ratio 18.2, Glucose 311 H, Calcium 8.1 L, Total Bilirubin 0.80, AST 14 L, ALT 18, Alkaline Phosphatase 64, Total Protein 6.0 L, Albumin 3.0 L, Globulin 3.0, Albumin/Globulin Ratio 1.0 05/15/23 08:01: POC Glucose 330 H Radiography Diagnostic Testing: Radiology Impression Brain CT 05/14/23 14:56 IMPRESSION: Negative head/brain CT without intravenous contrast. Electronically Signed: Hardik Tucker MD at 15:46 EST , D/C Instructions Discharge Diet: 1800 Calorie Control Diet Weight Bearing Status: Full weight bearing Meaningful Use Info Meaningful Use Diagnoses (Choose all that apply): None applicable Discharge Plan Admission Admit Date/Time: 05/14/23 17:30 Primary Reason for Your Visit: DKA Attending Provider: Ángel Sales [facility] Providers: Annemarie Rizzo Discharge Orders/Prescriptions Prescriptions: New insulin glargine-yfgn 100 unit/mL (3 mL) Insulin Pen 35 unit subcut BIDCM Qty: 0 0RF insulin lispro [Humalog KwikPen Insulin] 100 unit/mL insulin pen 35 unit subcut TID Qty: 15 0RF Continued atorvastatin 40 mg tablet 40 mg PO DAILY 30 Days Qty: 30 0RF metoprolol succinate [Toprol XL] 100 mg tablet extended release 24 hr 100 mg PO DAILY 30 Days Qty: 30 0RF aspirin [Adult Low Dose Aspirin] 81 mg tablet,delayed release (DR/EC) 81 mg PO DAILY 30 Days Qty: 30 0RF zolpidem 10 mg tablet 10 mg PO QHS PRN (Reason: insomnia) 30 Days Qty: 30 0RF pregabalin 300 mg capsule 300 mg PO BID 30 Days Qty: 60 0RF warfarin 5 mg tablet 5 mg PO DAILY Qty: 30 0RF pantoprazole [address] for susp in packet 40 mg PO BID No Action (DME) lancets 30 gauge misc See Rx Instructions .Route Qty: 120 0RF Rx Instructions: As directed (DME) Blood Glucose Test Strip See Rx Instructions .Route Qty: 50 3RF Rx Instructions: As directed (DME) insulin syr/ndl U100 half ángel 0.3 mL 30 gauge x 1/2 syringe See Rx Instructions .Route Qty: 100 0RF Rx Instructions: As directed [facility] - Within 2 Weeks Disposition Disposition (needs filled in before D/C Order can be placed): Home, Self Care Charges/Coding Visit Charges Inpatient E&M: 31331 Disch Hosp
[2023-05-15] MEDS: Influenza Virus Vac Quad 23-24 60 MCG/0.5 ML SYRINGE IM (11:06)
[2023-05-15] MEDS: HYDROcodone Bitartrate/Apap 5/325 Tablet PO (11:07)
== END 2023-05-15 11:17 | disposition home or self-care (01) | DRG 420 ==
LOC: ED 16:01 → ICU 18:06
PROVIDERS: Admitting Provider Internal Medicine; Emergency Provider Emergency Medicine; Visit Provider Internal Medicine
DX: E10.10 Type 1 diabetes mellitus with ketoacidosis without coma (principal); I82.811 Embolism and thrombosis of superficial veins of right lower extremity; E10.40 Type 1 diabetes mellitus with diabetic neuropathy, unspecified; E10.51 Type 1 diabetes mellitus with diabetic peripheral angiopathy without gangrene; Z79.4 Long term (current) use of insulin; Z89.512 Acquired absence of left leg below knee; E10.22 Type 1 diabetes mellitus with diabetic chronic kidney disease; I12.9 Hypertensive chronic kidney disease with stage 1 through stage 4 chronic kidney disease, or unspecified chronic kidney disease; N18.9 Chronic kidney disease, unspecified; K21.9 Gastro-esophageal reflux disease without esophagitis; E78.5 Hyperlipidemia, unspecified; G43.709 Chronic migraine without aura, not intractable, without status migrainosus; Z79.01 Long term (current) use of anticoagulants; Z79.82 Long term (current) use of aspirin; Z79.899 Other long term (current) drug therapy; Z87.891 Personal history of nicotine dependence; Z23 Encounter for immunization
CPT/HCPCS: 70450; 80048; 80053; 82009; 82962; 83036; 83735; 85025; 85610; 93926; 99285; J7030; 90686; A4216; J2405; J7799

== ENCOUNTER 2023-06-04 09:42 | Emergency (ER) | payer MEDICAID, SELFPAY ==
[2023-06-04 09:42] VITALS: BP 174/92; PULSE 85; RESP 14; TEMP 36.6; O2SAT 100; BMI 27.8
--- NOTE | 2023-06-04 09:56 | CT_ITS ---
STUDY: CT BRAIN WITHOUT CONTRAST REASON FOR EXAM: Female, 37 years old. Headache. RADIATION DOSAGE (If Supplied By Facility): CTDIvol = ( 44.99 ) mGy, DLP = ( 779.24 ) mGycm TECHNIQUE: Transaxial CT imaging of the brain was performed without administration of intravenous contrast material. Individualized dose optimization techniques were used for this CT. COMPARISON: Prior study dated: 05/14/23 FINDINGS: PARENCHYMA: There is no acute bleed or infarct. There are normal white matter tracts. VENTRICLES: There is no hydrocephalus. MASTOID AIR CELLS AND PARANASAL SINUSES: The visualized paranasal sinuses are clear. The mastoid air cells are clear. BONES: There is no skull fracture. SOFT TISSUES: The visualized soft tissues are within normal limits. CT/Brain/Head without Contrast IMPRESSION: No acute intracranial abnormality. No hydrocephalus Electronically Signed: Sarwat Joseph MD at 11:04 EST ,
--- NOTE | 2023-06-04 09:57 | EDS_ITS ---
HPI History of Present Illness Chief Complaint: Headache Detail of Chief Complaint: Headache for approximately 2 months Informant: patient Onset/Context/Timing Onset: Month(s) Context: Sudden Timing: Waxes and wanes Quality -Headache: Positive for Other (Pain frontal and occipital area); Negative for Similar Prior Headaches, Sharp, Dull, Throbbing, Tightness or Burning Location: Occipital and frontal Current Severity: Moderate Maximum Severity: Severe Worsened by: Nothing specific Relieved by: Nothing Associated Symptoms/Injury Associated Symptoms: Positive for Nausea; Negative for Fever, Vomiting, Sore T hroat, Sinus Pressure, Numbness, Tingling, Preceding Aura, Visual Changes, Blurred Vision, Photophobia or Visual Loss Injury - EMMANUEL: Negative for Direct Trauma Narrative Narrative: Patient is a 37-year-old woman with history of hypercoagulopathy on Coumadin. INR has not been assessed in the month. She presents with headache for 1 to 2 months. It is located in the frontal occipital area. Described as pain. There are no alleviating or exacerbating factors. Nothing that she can recall precipitated this. She states she does have a history of migraines. Has not had a headache in years. She is on Coumadin. To her knowledge she has had no significant or insignificant head trauma. She denies ringing or ears decreased hearing. She denies light sensitivity. She denies trouble speech or swallowing. She denies neck pain. She denies paresthesia or anesthesia upper extremities or right lower extremity. 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 She denies nausea, vomiting or diarrhea. She denies cardiac or respiratory symptoms. She denies black or maroon-colored stool. She denies chest pain or shortness of breath. Patient does complain of left shoulder pain. She fell last evening. She [place] a bowling [place] with her family. She does not recall hitting her head and denies any change in the headache after the fall. Prior similar symptoms: No Recent Illness/Hospitalization: No PFSH [facility] Medical History Abnormal angiogram Anemia Anxiety Bipolar disorder Chronic anticoagulation Depression Diabetes DVT (deep venous thrombosis) Former smoker GERD (gastroesophageal reflux disease) Headache HTN (hypertension) Hyperlipidemia Migraines Peripheral artery disease Type 1 diabetes mellitus Home Medications aspirin 81 mg tablet,delayed release (Adult Low Dose Aspirin) 81 mg PO DAILY 30 days #30 tabs 03/14/23 [Rx Last Taken Unknown] atorvastatin 40 mg tablet 40 mg PO DAILY 30 days #30 tabs 03/14/23 [Rx Last Taken Unknown] blood sugar diagnostic (Blood Glucose Test strips) #50 ea 03/14/23 [Rx Last Taken Unknown] insulin syr/ndl U100 half ángel 0.3 mL 30 gauge x 1/2 #100 ea 03/14/23 [Rx Last Taken Unknown] lancets 30 gauge #120 units 03/14/23 [Rx Last Taken Unknown] metoprolol succinate 100 mg tablet,extended release 24 hr (Toprol XL) 100 mg PO DAILY 30 days #30 tabs 03/14/23 [Rx Last Taken Unknown] pregabalin 300 mg capsule 300 mg PO BID 30 days #60 caps 03/14/23 [Rx Last Taken Unknown] zolpidem 10 mg tablet 10 mg PO QHS PRN insomnia 30 days #30 tabs 03/14/23 [Rx Last Taken Unknown] warfarin 5 mg tablet 5 mg PO DAILY #30 tabs 04/23/23 [Rx Last Taken Unknown] pantoprazole 40 mg granules delayed-release for susp in packet 40 mg PO BID 05/14/23 [History Last Taken Unknown] insulin glargine-yfgn 100 unit/mL (3 mL) subcutaneous pen 35 unit (0.35 mL) subcut BIDCM #0 mL 05/15/23 [Rx Last Taken Unknown] insulin lispro 100 unit/mL subcutaneous pen (Humalog KwikPen (U-100) Insulin) 35 unit (0.35 mL) subcut TID #15 mL 05/15/23 [Rx Last Taken Unknown] warfarin 10 mg tablet 10 mg PO DAILY #30 tabs 06/04/23 [Rx Last Taken Unknown] Allergy/AdvReac Type Severity Reaction Status Date / Time morphine Allergy Intermediate Rash Verified 06/04/23 09:43 orange Allergy Rash Verified 06/04/23 09:43 Family History Other Cancer Surgical History S/P BKA (below knee amputation) unilateral Social History (Updated 06/04/23 @ 10:[address] Marquez Benz MD) household members: spouse and children Smoking Status: Former smoker ROS ROS ED Constitutional Constitutional ED: Denies chills, fever(s), subjective, sweats or weight loss Eyes Eyes: Denies blurry vision, change in vision or diplopia ENT ENT ED: Reports other Details: Denies epistaxis, bleeding gums or dental trauma. ; Denies ear pain, rhinorrhea or sore throat Cardiovascular Cardiovascular: Denies chest pain or palpitations Respiratory/Chest Respiratory/Chest: Denies cough, dyspnea or dyspnea on exertion Gastrointestinal Gastrointestinal: Denies abdominal pain, melena, nausea or vomiting Genitourinary Genitourinary ED: Denies dysuria or hematuria Musculoskeletal Musculoskeletal: Reports other Details: Pain left shoulder region ; Denies arthralgias, back pain, myalgias or neck pain Integumentary Denies Abrasions or rash Neurologic Neurologic: Reports headache(s); Denies paresthesias or weakness Endocrine Endocrinology: Denies polydipsia or polyphagia Hematologic/Lymphatic Hematologic/Lymphatic: Reports easy bruising; Denies easy bleeding EXAM Physical Exam Const Vital Signs: 06/04/23 09:42 06/04/23 11:18 06/04/23 13:09 Temperature 97.9 F Temperature Source Temporal Pulse Rate 85 77 82 Respiratory Rate 14 16 16 Blood Pressure 174/92 H 153/75 H 135/81 H Blood Pressure Mean 119 101 99 Pulse Ox 100 97 97 Oxygen Delivery Method Room Air Room Air Room Air Positive well nourished and well developed Constitutional Narrative: Patient does not appear well. General Appearance ED: well developed, NAD and pallor; Negative for cyanotic or diaphoretic HEENT Reports normocephalic, TM's clear and moist mucous membranes HEENT Narrative: There is no septal deviation hematoma. There is no evidence of dental trauma. Posterior pharynx is normal. There is no TMJ tenderness. There is no posterior midline neck pain. atraumatic Tympanic Membrane ED: Yes TM's clear Eyes PERRL and EOMs intact bilaterally Eyes Narrative: There is no nystagmus. There is no subconjunctival hemorrhage. General Eye ED: Negative for pale conjunctiva or scleral icterus Neck no lymphadenopathy, supple and no meningeal signs Resp normal respiratory effort and clear to auscultation bilaterally Cardio regular rate, regular rhythm, S1 normal heart sound, S2 normal heart sound and no murmurs GI non-tender and non-distended Auscultation: normoactive bowel sounds Palpation: soft Back/Spine no CVA tenderness Cervical Spine: Negative for cervical spine tenderness Extremity normal to inspection, full ROM and normal capillary refill Extremity Narrative: There is pain outpatient over the clavicle. There is no pain ovation over the proximal humerus. Axillary, median, radial and ulnar function intact. Radial pulses 2+. There is no evidence of trauma to the left upper extremity or chest wall. Patient has prosthesis left lower extremity due to arterial occlusion. Neuro oriented x3, CN's II-XII intact bilaterally and no sensory deficits noted Jovanny Coma Scale: document GCS findings Spontaneous Obeys Commands Oriented 15 Sensorium / Orientation: awake and alert Motor Exam: strength 5/5 throughout Psych Mood & Affect: depressed Skin General Skin Exam: elasticity normal, turgor normal and pallor; Negative for jau ndice Lesions: no lesions Rashes: no rashes MDM MDM MDM Narrative Medical decision making narrative: Since patient is on Coumadin will obtain PT/INR compared to prior level on record. Because of the headache for 1 to 2 months with history of falls on anticoagulant will obtain CT of the head to evaluate for subdural hematoma, intraparenchymal contusion and traumatic subarachnoid hemorrhage. If there is no evidence intracranial bleed will treat with meds for headache. Patient was made NPO. Prior records reviewed. History & Record Review Additional record(s) reviewed:: Prior outpatient record, Prior ED visit and Prior labs Lab Data Labs: Laboratory Results - last 24 hr 06/04/23 10:22 PT 11.5 L INR 0.8 Sodium 133 L Potassium 4.3 Chloride 99 Carbon Dioxide 29.0 Anion Gap 5 BUN 13 Creatinine 0.83 Estim Creat Clear Calc 98.81 Est GFR (MDRD) Af Amer 99 Est GFR (MDRD) Non-Af 82 BUN/Creatinine Ratio 15.6 Glucose 423 H Calcium 9.4 Radiography Diagnostic Testing: Clinical Impression(s) from Imaging Studies Brain CT 06/04/23 09:56 IMPRESSION: No acute intracranial abnormality. No hydrocephalus Electronically Signed: Sarwat Joseph MD at 11:04 EST , Treatment and Re-Evaluation Narrative: CAT scan was reviewed by me. There is no Insa subdural, epidural, traumatic subarachnoid hemorrhage or intraparenchymal contusion. In light of this meds for vascular headache or entered i.e. Reglan, Benadryl and ketorolac. Patient's renal function is normal. Blood sugar is elevated 423. Will administer 1 L of normal saline and subcu insulin. Because patient's PT/INR is normal will treat with Imitrex subcu. Patient was reassessed at 1228. She had to be awakened. Upon awakening she says her headache is no better. Patient was reassessed at 1319. She is awake. She is texting. She reports her headache is markedly better. She was informed that her PT/INR is subtherapeutic. She states she was on 50 mg. She was decreased to 5 mg by the practitioner that saw her at [facility]. She states she only has a couple pills left. Plan is to increase to 10 mg and have PT/INR checked later this week. Discharge Plan Triage Chief Complaint: Headache ED Provider: Marquez Benz Dx/Rx/DC Orders Clinical Impression: Intractable migraine without aura and with status migrainosus, Anticoagulant long-term use, Hyperlipidemia, History of peripheral arterial disease, Type 1 diabetes mellitus, Elevated blood pressure reading in office without diagnosis of hypertension Instructions: ED Diabetic Hyperglycemia, ED Hypertension, To Be Confirmed, ED, Migraine (Classical) Prescriptions: New warfarin 10 mg tablet 10 mg PO DAILY Qty: 30 0RF No Action (DME) lancets 30 gauge misc See Rx Instructions .Route Qty: 120 0RF Rx Instructions: As directed (DME) Blood Glucose Test Strip See Rx Instructions .Route Qty: 50 3RF Rx Instructions: As directed (DME) insulin syr/ndl U100 half ángel 0.3 mL 30 gauge x 1/2 syringe See Rx Instructions .Route Qty: 100 0RF Rx Instructions: As directed atorvastatin 40 mg tablet 40 mg PO DAILY 30 Days Qty: 30 0RF metoprolol succinate [Toprol XL] 100 mg tablet extended release 24 hr 100 mg PO DAILY 30 Days Qty: 30 0RF aspirin [Adult Low Dose Aspirin] 81 mg tablet,delayed release (DR/EC) 81 mg PO DAILY 30 Days Qty: 30 0RF zolpidem 10 mg tablet 10 mg PO QHS PRN (Reason: insomnia) 30 Days Qty: 30 0RF pregabalin 300 mg capsule 300 mg PO BID 30 Days Qty: 60 0RF warfarin 5 mg tablet 5 mg PO DAILY Qty: 30 0RF pantoprazole [address] for susp in packet 40 mg PO BID insulin glargine-yfgn 100 unit/mL (3 mL) Insulin Pen 35 unit subcut BIDCM Qty: 0 0RF insulin lispro [Humalog KwikPen Insulin] 100 unit/mL insulin pen 35 unit subcut TID Qty: 15 0RF Primary Care Provider: [facility] Leticia Bautista Referrals: [facility] Leticia Bautista [Primary Care Provider] - 3-5 Days Activity Restrictions/Additional Instructions: 1. [facility] to be seen later in the week for for blood pressure recheck and PT/INR. Disposition Disposition: Home, Self Care
--- OUTSIDE RECORDS SUMMARY | 2023-06-04 10:05 | XMS RPT_ITS | CCD ---
Author Name Unknown Address [id number] [place] [address] Organization [facility] Care Team Providers Care Lodging Facilities Manager Name Role Phone VICENTE QURESHI Attending Unavailable VICENTE QURESHI Primary Care Unavailable VICENTE QURESHI Admitting Unavailable Allergies Allergy Classification Reported Allergen(s) Allergy Type Date of Onset Reaction(s) Facility (1 source) Morphine Drug Allergy [facility] Repository (1 source) [place] - fruit; Translations: [ORANGE] Food allergy (disorder) [facility] Repository Results Test Name Value Interpretation Reference Range Facil ity Encounters Encounter Date Encounter Type Care Provider Facility Start: 02-12-2023 End: 02-12-2023 Emergency department patient visit VICENTE QURESHI [facility] Payers Date Payer Category Payer Unknown [id number] Medicaid [id number] Summary Purpose Family History No Family History [...] BE BASED ON THE PRIMARY CLINICAL RECORDS. [employer] provides no warranty or guarantee of the accuracy or completeness of information in this document.
[2023-06-04 10:40] LABS: Anion Gap 5 (5-15); BUN 13 mg/dL (7-18); BUN/Creat Ratio 15.6 RATIO (10-20); Calcium,Total 9.4 mg/dL (8.5-10.1); Chloride 99 mmol/L (98-107); Creatinine, Serum 0.83 mg/dL (0.55-1.02); EST Glomerular Filtration Rate 82 mL/min (>60); Est Glom Filt Rate - Afr Amer 99 mL/min (>60); Estimated Creatinine Clearance 98.81 ml/min; Glucose 423 mg/dL (74-106); Potassium 4.3 mmol/L (3.5-5.1); Sodium Level 133 mmol/L (136-145)
[2023-06-04 10:50] LABS: International Normalized Ratio 0.8; Prothrombin Time (Protime)PT. 11.5 SECONDS (11.7-14.9)
[2023-06-04] MEDS: DiphenhydrAMINE 50 MG/ML Syringe 25 MG IV (11:12)
[2023-06-04] MEDS: 0.9% Normal Saline (1000mL) 1,000 ML 999 ML IV (11:12)
[2023-06-04] MEDS: Insulin Lispro 100 UNIT/ML INSULN.PEN 7 UNIT SC (11:12)
[2023-06-04] MEDS: Ketorolac 15 MG/ML Vial IV (11:12)
[2023-06-04] MEDS: Metoclopramide 10 MG/2 ML Vial IV (11:12)
[2023-06-04 11:18] VITALS: BP 153/75; PULSE 77; RESP 16; O2SAT 97
[2023-06-04] MEDS: SUMAtriptan 6 MG/0.5 ML Vial SC (13:05)
[2023-06-04 13:09] VITALS: BP 135/81; PULSE 82; RESP 16; O2SAT 97
[2023-06-04 13:50] VITALS: BP 172/83; PULSE 86; RESP 16; TEMP 36.6; O2SAT 97
--- NOTE | 2023-06-04 13:51 | ED.RN ---
THIS RN AT BEDSIDE TO DISCHARGE PT. PT GIVEN WRITTEN AND VERBAL DISCHARGE INSTRUCTIONS AND HOME GOING PRESCRIPTIONS. PT VERBALIZES UNDERSTANDING. IV D/C AND COVERED WITH 2X2 GAUZE AND PAPER TAPE. PT APPLIES PRESSURE TO THE D/C SITE. PT BP 172/83 DR. PEDRO INFORMED. PT REPORTS THAT SHE HAS NOT TAKEN HER METOPROLOL THIS MORNING. PER DR. PEDRO VERBAL INSTRUCTIONS PT TO TAKE HER HOME METOPROLOL WHEN SHE GETS HOME. PT VERBALIZES UNDERSTANDING AND DENIES ANY FURTHER QUESTIONS. PT DRESSES SELF AND AMBULATES OUT OF DEPT ALONE.
== END 2023-06-04 13:54 | disposition home or self-care (01) ==
PROVIDERS: Emergency Provider Emergency Medicine; Visit Provider Emergency Medicine
DX: G43.911 Migraine, unspecified, intractable, with status migrainosus (principal); E10.51 Type 1 diabetes mellitus with diabetic peripheral angiopathy without gangrene; E78.5 Hyperlipidemia, unspecified; R03.0 Elevated blood-pressure reading, without diagnosis of hypertension; Z86.718 Personal history of other venous thrombosis and embolism; Z79.01 Long term (current) use of anticoagulants; Z87.891 Personal history of nicotine dependence
CPT/HCPCS: 70450; 80048; 85610; 96361; 96372; 96374; 96375; 99282; A4216; J3030

== ENCOUNTER 2023-07-12 11:29 | Emergency (ER) | payer MEDICAID, SELFPAY ==
[2023-07-12 11:29] VITALS: BP 200/102; PULSE 107; RESP 18; TEMP 36; O2SAT 99; BMI 27.8
--- NOTE | 2023-07-12 11:35 | EDS_ITS ---
HPI History of Present Illness Chief Complaint: Other, Pain/Inj PFSH PFSH Medical History Abnormal angiogram Anemia Anxiety Bipolar disorder Chronic anticoagulation Depression Diabetes DVT (deep venous thrombosis) Former smoker GERD (gastroesophageal reflux disease) Headache HTN (hypertension) Hyperlipidemia Migraines Peripheral artery disease Type 1 diabetes mellitus Home Medications aspirin 81 mg tablet,delayed release (Adult Low Dose Aspirin) 81 mg PO DAILY 30 days #30 tabs 03/14/23 [Rx Last Taken Unknown] atorvastatin 40 mg tablet 40 mg PO DAILY 30 days #30 tabs 03/14/23 [Rx Last Taken Unknown] blood sugar diagnostic (Blood Glucose Test strips) #50 ea 03/14/23 [Rx Last Taken Unknown] insulin syr/ndl U100 half ángel 0.3 mL 30 gauge x 1/2 #100 ea 03/14/23 [Rx Last Taken Unknown] lancets 30 gauge #120 units 03/14/23 [Rx Last Taken Unknown] metoprolol succinate 100 mg tablet,extended release 24 hr (Toprol XL) 100 mg PO DAILY 30 days #30 tabs 03/14/23 [Rx Last Taken Unknown] pregabalin 300 mg capsule 300 mg PO BID 30 days #60 caps 03/14/23 [Rx Last Taken Unknown] zolpidem 10 mg tablet 10 mg PO QHS PRN insomnia 30 days #30 tabs 03/14/23 [Rx Last Taken Unknown] warfarin 5 mg tablet 5 mg PO DAILY #30 tabs 04/23/23 [Rx Last Taken Unknown] pantoprazole 40 mg granules delayed-release for susp in packet 40 mg PO BID 05/14/23 [History Last Taken Unknown] insulin glargine-yfgn 100 unit/mL (3 mL) subcutaneous pen 35 unit (0.35 mL) subcut BIDCM #0 mL 05/15/23 [Rx Last Taken Unknown] insulin lispro 100 unit/mL subcutaneous pen (Humalog KwikPen (U-100) Insulin) 35 unit (0.35 mL) subcut TID #15 mL 05/15/23 [Rx Last Taken Unknown] warfarin 10 mg tablet 10 mg PO DAILY #30 tabs 06/04/23 [Rx Last Taken Unknown] oxycodone-acetaminophen 5 mg-325 mg tablet (Percocet) 1 tab PO Q6H PRN pain 3 days #12 tabs 04/10/24 [Rx Last Taken Unknown] pregabalin 300 mg capsule (Lyrica) 300 mg PO BID 7 days #14 caps 07/12/23 [Rx Last Taken Unknown] Allergy/AdvReac Type Severity Reaction Status Date / Time morphine Allergy Intermediate Rash Verified 07/12/23 11:31 orange Allergy Rash Verified 07/12/23 11:31 Family History Other Cancer Surgical History S/P BKA (below knee amputation) unilateral Social History (Updated 06/04/23 @ 10:[address] Marquez Benz MD) household members: spouse and children Smoking Status: Former smoker EXAM Physical Exam Const Vital Signs: 07/12/23 11:29 07/12/23 12:05 Temperature 96.8 F L Temperature Source Temporal Pulse Rate 107 H Respiratory Rate 18 Respiratory Effort Normal Non-Labored Respiratory Pattern Normal Blood Pressure 200/102 H Blood Pressure Mean 134 Pulse Ox 99 Oxygen Delivery Method Room Air MDM MDM MDM Narrative Medical decision making narrative: HISTORY OF PRESENT ILLNESS: 37-year-old female presents with diaphoresis right leg. Also endorses hand pain. States leg pain started several days ago. No falls or recent trauma. No motor vehicle crashes. Does not take IV drugs. Notes compliance with warfarin. Notes she is out of Lyrica. Patient denies any saddle anesthesia, urinary retention, bowel or bladder incontinence, lower extremity weakness, fever or IV drug use, no recent spinal manipulation or surgery, no recent urinary catheterization. REVIEW OF SYSTEMS: Pertinent positives: Back pain, hand pain Pertinent negatives: Bowel or bladder incontinence, urinary retention, loss of movement or sensation, vomiting, chest pain, abdominal pain PHYSICAL EXAM: Nursing triage notes reviewed, Vital signs reviewed Constitutional: please see mdm HENT: MMM Eyes: Pupils equal round and reactive to light, Extraocular muscles intact Neck: No stridor, no JVD, full neck ROM Lungs: Clear to auscultation, No wheezing or rales. No increased work of breathing, no conversational dyspnea, no accessory muscle use, no nasal flaring. No respiratory distress noted Heart: Regular rate and rhythm, No murmurs, No rubs and No gallops, 2+ distal pulses (radial, femoral, posterior tibial) in all extremities only femoral pulse noted in the left lower extremity Abdomen: Soft, there is no tenderness, rigidity, rebound or guarding, no obvious peritoneal signs, no palpable pulsatile abdominal masses, no auscultated abdominal bruit : No CVAT Extremities: No edema Back: No midline step-offs deformities, no rashes Neuro: No focal intact sensation L1-S1 dermatomal distributions. Intact 5/5 strength in hip flexion (T12-L3). Knee extension (L2-L4). Ankle dorsiflexion (L4-L5). Ankle plantar flexion (S1). Great toe extension (L5). 2+ patellar and Achilles DTRs. Intact 5/5 strength with ok sign (median), intact finger abduction (ulnar) intact wrist extension (radial n). Intact sensation in the radial, ulnar, and median nerve distributions. Skin: No rash or lesions noted MEDICAL DECISION MAKING: Chief Complaint: Back pain External records reviewed: Imaging reviewed: CT scan of the lumbar spine from April 2023 shows Mild degenerative changes no fracture no canal stenosis factors affecting care: Type 1 diabetes, DVT on warfarin Social determinants of health: denies illicit drugs History obtained from others: none Consults: none MDM Narrative: Patient was initially hypertensive, tachycardic otherwise afebrile and nontoxic- appearing. There are no focal neurologic deficits noted in the right lower extremity. Initially treated the patient with oral Percocet, ibuprofen, lidocaine patch and Lyrica. I considered the following differential diagnosis: Musculoskeletal back pain, lumbar radiculopathy, space-occupying lesion spinal (cauda equina, conus medullaris, epidural abscess) The patient presented complaining of back pain. There was no evidence to support genitourinary etiology. There is also no evidence to suggest vascular pathology such as AAA dissection. No fevers or other evidence to suspect infectious processes, abscess, osteomyelitis etc. The patient?s neurological exam is normal with normal motor and sensory. There is no saddle paresthesias reported and no bowel or bladder incontinence or retention. I suspect the pain is mechanical in nature. Clinical suspicion, plan of care and management was discussed with the patient. The patient was instructed to follow up with their health care provider. The patient was also instructed to return if the pain worsened, changed, or developed weakness or bowel or bladder trouble. The patient agreed with plan. I did not prescribe corticosteroids as this would likely increase her blood sugars and could lead to DKA. I did prescribe a short course of oral narcotics and refill the patient's already prescribed Lyrica. Encourage close outpatient follow-up. I completed a structured, evidence-based clinical evaluation to screen for acute non-traumatic spinal emergencies. The patient has a normal detailed neurologic exam and red flag historical factors were negative. The evidence indicates that the patient is very low risk for an acute spinal emergency and this is consistent with my clinical intuition. The risk of further workup is higher than the likelihood of the patient having a spinal epidural abscess or other dangerous emergency spinal condition. It is, therefore, in the patient?s best interest not to do additional emergent testing at this time. Shared Decision-Making I have discussed with the patient my clinical impression and the result of an evidence-based clinical evaluation to screen for spinal epidural abscess and other spinal emergencies, as well as the risk of further testing and hospitalization. The evidence shows that the risk for an acute spinal emergency is less than 1%. Although the risk of an acute spinal emergency has not been completely eliminated, the risks of further testing likely exceed any potential benefit, and the patient agrees with not pursuing further emergent evaluation for causes of back pain at this time. The patient and/or family, caregivers express understanding. The patient and/or family, caregivers agrees with the plan. Total critical care time today provided was at least 0 minutes. This excludes separately billable procedures. Critical care time (if documented) is secondary to the patient having high probability of clinically significant/life threatening deterioration in the patient's condition which required my urgent intervention. Impression: 1. Lumbar radiculopathy 2. History of type 1 diabetes 3. History of DVT on warfarin Dispo: Discharge This note was generated with [employer] dictation software. It may contain incorrect words, spelling, and punctuation that were not noted in review of the chart prior to signing. Discharge Plan Triage Chief Complaint: Other, Pain/Inj ED Provider: Mj Wong Dx/Rx/DC Orders Clinical Impression: Radiculopathy of lumbar region Instructions: ED Sciatica, ED RICE Prescriptions: New oxycodone-acetaminophen [Percocet] 5-325 mg tablet 1 tab PO Q6H PRN (Reason: pain) 3 Days Qty: 12 0RF pregabalin [Lyrica] 300 mg capsule 300 mg PO BID 7 Days Qty: 14 0RF No Action (DME) lancets 30 gauge misc See Rx Instructions .Route Qty: 120 0RF Rx Instructions: As directed (DME) Blood Glucose Test Strip See Rx Instructions .Route Qty: 50 3RF Rx Instructions: As directed (DME) insulin syr/ndl U100 half ángel 0.3 mL 30 gauge x 1/2 syringe See Rx Instructions .Route Qty: 100 0RF Rx Instructions: As directed atorvastatin 40 mg tablet 40 mg PO DAILY 30 Days Qty: 30 0RF metoprolol succinate [Toprol XL] 100 mg tablet extended release 24 hr 100 mg PO DAILY 30 Days Qty: 30 0RF aspirin [Adult Low Dose Aspirin] 81 mg tablet,delayed release (DR/EC) 81 mg PO DAILY 30 Days Qty: 30 0RF zolpidem 10 mg tablet 10 mg PO QHS PRN (Reason: insomnia) 30 Days Qty: 30 0RF pregabalin 300 mg capsule 300 mg PO BID 30 Days Qty: 60 0RF warfarin 5 mg tablet 5 mg PO DAILY Qty: 30 0RF pantoprazole [address] for susp in packet 40 mg PO BID insulin glargine-yfgn 100 unit/mL (3 mL) Insulin Pen 35 unit subcut BIDCM Qty: 0 0RF insulin lispro [Humalog KwikPen Insulin] 100 unit/mL insulin pen 35 unit subcut TID Qty: 15 0RF warfarin 10 mg tablet 10 mg PO DAILY Qty: 30 0RF Primary Care Provider: [facility] Leticia Bautista Referrals: [facility] Leticia Bautista [Primary Care Provider] - Activity Restrictions/Additional Instructions: Thank you for trusting us with your care today! Your presentation is consistent with lumbar radiculopathy. Please take Tylenol (2 pills, 650 mg), ibuprofen (2 pills, 400 mg) every 6 hours as needed for pain and fever control. Please take Percocet in lieu of Tylenol if the above pain regimen does not control your pain. Please not take Percocet and Tylenol together as Percocet contains Tylenol. Please return to the emergency department if your symptoms change or worsen. Specifically develop bowel or bladder incontinence, urinary tension, decreased sensation to prior parts, decreased movement or sensation in your legs. Please follow with your primary care physician for further outpatient evaluation and management. Disposition Disposition: Home, Self Care
[2023-07-12] MEDS: Lidocaine 5% Patch 1 PATCH TOPICAL (12:03)
[2023-07-12] MEDS: Ibuprofen 200 MG Tablet 400 MG PO (12:03)
[2023-07-12] MEDS: Oxycodone/Apap 5/325 Tablet PO (12:03)
[2023-07-12] MEDS: Pregabalin 75 MG Capsule 300 MG PO (12:10)
[2023-07-12 12:11] VITALS: BP 156/94; PULSE 108; RESP 16; TEMP 36.9; O2SAT 96
== END 2023-07-12 12:18 | disposition home or self-care (01) ==
LOC: ED 12:11
PROVIDERS: Emergency Provider Emergency Medicine; Visit Provider Emergency Medicine
DX: M54.16 Radiculopathy, lumbar region (principal); Z79.4 Long term (current) use of insulin; E10.51 Type 1 diabetes mellitus with diabetic peripheral angiopathy without gangrene; I10 Essential (primary) hypertension; Z79.01 Long term (current) use of anticoagulants; Z79.82 Long term (current) use of aspirin; Z79.899 Other long term (current) drug therapy; Z86.718 Personal history of other venous thrombosis and embolism; Z87.891 Personal history of nicotine dependence
CPT/HCPCS: 99284

== ENCOUNTER → 2023-07-14 | Outpatient (CLI) | payer MEDICAID, SELFPAY ==
[2023-07-14 16:52] LABS: Absolute Lymphocyte Count 2.66 X10^3/uL (0.83-4.51); Absolute Neutrophil Count 5.6 X10^3/uL (2.0-7.7); Basophil# 0.06 X10^3/uL; Basophil% 0.7 % (0-1); Eosinophil# 0.12 X10^3/uL; Eosinophils% 1.3 % (0-5); Hematocrit 43.9 % (37-47); Hemoglobin 15.4 g/dL (12.0-15.0); Lymphocyte # 2.66 X10^3/ul (0.83-4.51); Lymphocyte % 29.8 % (19-41); Mean Corp Hgb Conc 35.1 g/dL (32-36); Mean Corpuscular Hgb 27.4 pg (27.0-32.0); Mean Platelet Vol. 12.8 fl (6.2-12.0); Monocyte# 0.41 X10^3/uL; Monocyte% 4.6 % (0-10); NRBC Flagged by Analyzer 0 % (0-5); Neutrophil # 5.64 X10^3/uL (2.7-7.7); Neutrophil % 63.3 % (47-70); Platelet Count 209 K/mm3 (150-450); RBC Distribution Width CV 12.5 % (11.6-14.6); RBC Distribution Width SD 35.2 fl (35.1-43.9); Red Blood Count 5.63 M/mm3 (4.2-5.4); White Blood Count 8.9 K/mm3 (4.4-11.0)
[2023-07-14 16:54] LABS: International Normalized Ratio 0.9
[2023-07-14 17:12] LABS: Vitamin B12 294 pg/mL (211-911)
[2023-07-14 19:49] LABS: ALB/GLOB Ratio 0.9 RATIO (0.9-2.4); AST(SGOT) 11 U/L (15-37); Alanine Aminotransfer ALT/SGPT 20 U/L (13-56); Albumin, Serum 3.6 g/dL (3.2-5.0); Alkaline Phosphatase 88 U/L (45-117); Anion Gap 7 (5-15); BUN 15 mg/dL (7-18); BUN/Creat Ratio 16.4 RATIO (10-20); Calcium,Total 8.8 mg/dL (8.5-10.1); Chloride 101 mmol/L (98-107); Cholesterol 245 mg/dL (200); Creatinine, Serum 0.92 mg/dL (0.55-1.02); EST Glomerular Filtration Rate 74 mL/min (>60); Est Glom Filt Rate - Afr Amer 89 mL/min (>60); Ferritin 27 ng/mL (8-252); Globulin 3.9 g/dL (2.2-4.2); Glucose 544 mg/dL (74-106); High Density Lipoprotein 27 mg/dL; Iron 64 ug/dL (50-170); Iron Binding Capacity,Total 352 ug/dL (250-450); Potassium 4.7 mmol/L (3.5-5.1); Protein, Total 7.5 g/dL (6.4-8.2); Sodium Level 129 mmol/L (136-145); T4 Free Direct 0.93 ng/dL (0.76-1.46); Thyroid Stim Hormone (TSH) 5.46 uIU/mL (0.358-3.74); Triglycerides 1109 mg/dL
== END | disposition home or self-care (01) ==
LOC: BIMLAB 14:32
PROVIDERS: PCP Nurse Practitioner; Referring Provider Nurse Practitioner; Visit Provider Nurse Practitioner
DX: I10 Essential (primary) hypertension (principal); E78.5 Hyperlipidemia, unspecified; D64.9 Anemia, unspecified; G62.9 Polyneuropathy, unspecified; Z79.01 Long term (current) use of anticoagulants
CPT/HCPCS: 36415; 80053; 80061; 82607; 82728; 83540; 83550; 84439; 84443; 85025; 85610

== ENCOUNTER → 2023-08-24 | Outpatient (CLI) | payer MEDICAID, SELFPAY ==
[2023-08-24 15:39] LABS: Amphetamine Urine VISTA NEGATIVE (<1000 ng/mL); Barbiturate Urine VISTA NEGATIVE (< 200 ng/mL); Benzodiazepine Urine VISTA NEGATIVE (< 200 ng/mL); Cocaine Urine VISTA NEGATIVE (< 300 ng/mL); Ecstacy Urine VISTA NEGATIVE (< 500 ng/mL); Methadone Urine VISTA NEGATIVE (< 300 ng/mL); PCP Urine VISTA NEGATIVE (< 25 ng/mL); THC Urine VISTA NEGATIVE (< 50 ng/mL); Vista UDS pH Range 5
== END | disposition home or self-care (01) ==
LOC: LAB 14:33
PROVIDERS: PCP Nurse Practitioner; Referring Provider Anesthesiology Pain Medicine; Visit Provider Anesthesiology Pain Medicine
DX: F11.20 Opioid dependence, uncomplicated (principal)
CPT/HCPCS: 80307

== ENCOUNTER 2023-08-26 10:37 | Inpatient (IN) | payer MEDICAID, SELFPAY ==
[2023-08-26] VITALS (15 sets, daily range): BP systolic 125–172; BP diastolic 77–98; PULSE 109–131; RESP 14–23; TEMP 36–37.5; O2SAT 96–100; BMI 25.7; BMI 26.6
--- NOTE | 2023-08-26 10:59 | EKG12_ITS ---
Test Reason : Blood Pressure : / mmHG Vent. Rate : 127 BPM Atrial Rate : 127 BPM P-R Int : 118 ms QRS Dur : 084 ms QT Int : 322 ms P-R-T Axes : 073 085 032 degrees QTc Int : 467 ms Sinus tachycardia Otherwise normal ECG Confirmed by Elvis Jimenez ([id number]), video editor ОЛЬГА MEJIA ([id number]) on 08/28/2023 8:16:49 AM Referred By: Confirmed By:Elvis Jimenez
--- NOTE | 2023-08-26 10:59 | RAD_ITS ---
STUDY: X-RAY CHEST REASON FOR EXAM: Female, 37 years old. Chest pain TECHNIQUE: Single AP portable view of the chest. COMPARISON: None. FINDINGS: The lungs are clear and expanded. There is no demonstrated pleural abnormality. Normal size heart. Normal mediastinum and enrike. Normal visualized pulmonary arteries. Normal visualized aortic arch and descending thoracic aorta. Normal visualized thoracic spine. Normal visualized ribs, clavicles, and shoulders. There is no demonstrated abnormality of the visualized soft tissue structures of the upper abdomen. RAD/Chest 1 View (Portable) IMPRESSION: Normal x-ray examination of the chest. Electronically Signed: Babar Wheat MD at 12:50 EDT ,
--- NOTE | 2023-08-26 11:01 | EX.ED.DYSGE1 ---
HPI History of Present Illness Chief Complaint: Nausea/Vomiting Informant: patient and spouse/S.O. Narrative Narrative: 37-year-old type I diabetic presenting to the emergency room with vomiting diarrhea. Patient states yesterday she began to experience vomiting. She notes diarrhea which she describes as brown and watery about every 2-3 hours. Nonbloody nonbilious in nature. She notes pain in the upper right lower ribs and into her back. Worse with movement. Worse with cough. No reported fevers. She notes her blood sugars have been reading high. She has been trying to drink fluids but has been difficult due to the vomiting. Patient is on Coumadin. She states she last had this level checked a month ago. She is on warfarin for prior blood clots. She did prior left leg amputation. [facility] Medical History Anemia Bipolar disorder Anxiety Depression Diabetes GERD (gastroesophageal reflux disease) Former smoker Migraines Headache DVT (deep venous thrombosis) Chronic anticoagulation Type 1 diabetes mellitus Abnormal angiogram Peripheral artery disease HTN (hypertension) Hyperlipidemia Home Medications ?Medication ?Instructions ?Recorded ?Last Taken ?Type aspirin 81 mg tablet,delayed 81 mg PO DAILY 30 days #30 tabs 03/14/23 Unknown Rx release (Adult Low Dose Aspirin) insulin syr/ndl U100 half ángel 0.3 #100 ea 03/14/23 Unknown Rx mL 30 gauge x 1/2 pantoprazole 40 mg granules 40 mg PO BID 05/14/23 Unknown History delayed-release for susp in packet insulin glargine-yfgn 100 unit/mL 35 unit (0.35 mL) subcut BIDCM #0 05/15/23 Unknown Rx (3 mL) subcutaneous pen mL insulin lispro 100 unit/mL 35 unit (0.35 mL) subcut TID #15 mL 05/15/23 Unknown Rx subcutaneous pen (Humalog KwikPen (U-100) Insulin) warfarin 10 mg tablet 10 mg PO DAILY #30 tabs 06/04/23 Unknown Rx atorvastatin 40 mg tablet 40 mg PO DAILY 30 days #30 tabs 07/13/23 Unknown Rx losartan 25 mg tablet 25 mg PO DAILY #30 tabs 07/13/23 Unknown Rx metoprolol succinate 100 mg 100 mg PO DAILY 30 days #30 tabs 07/13/23 Unknown Rx tablet,extended release 24 hr (Toprol XL) pen needle, diabetic 32 gauge x #1,200 ea 07/13/23 Unknown Rx /32 (BD Ultra-Fine Elyssa Pen Needle) mirtazapine 7.5 mg tablet 7.5 mg PO QHS #30 tabs 07/14/23 Unknown Rx venlafaxine 37.5 mg 37.5 mg PO DAILY #60 caps 07/14/23 Unknown Rx capsule,extended release 24 hr blood sugar diagnostic (OneTouch #100 ea 07/17/23 Unknown Rx Verio test strips) blood-glucose meter (OneTouch #1 ea 07/17/23 Unknown Rx Verio Flex Meter) lancets 30 gauge (Onetouch Delica #200 ea 07/17/23 Unknown Rx Safety Lancet) levothyroxine 25 mcg capsule 25 mcg PO DAILY #30 caps 07/18/23 Unknown Rx cilostazol 50 mg tablet 50 mg PO BID #60 tabs 08/01/23 Unknown Rx pregabalin 300 mg capsule (Lyrica) 300 mg PO BID 30 days #60 caps 08/17/23 Unknown Rx hydrocodone-acetaminophen 5-325mg 1 tab PO BID 08/26/23 Unknown History 5mg-325mg Allergy/AdvReac Type Severity Reaction Status Date / Time morphine Allergy Intermediate Rash Verified 08/26/23 10:40 orange Allergy Rash Verified 08/26/23 10:40 Family History Father Hypertension Cancer lung Diabetes Mother Diabetes Hypertension Cancer bladder Dementia Surgical History History of revascularization procedure of lower extremity Hx of cholecystectomy History of intravascular stent placement Tubal ligation status History of below-knee amputation of left lower extremity S/P BKA (below knee amputation) unilateral Social History household members: spouse and children housing: house current occupational status: disabled Smoking Status: Former smoker alcohol intake: never substance use type: does not use what type of physical activity do you participate in: none seatbelt use: always do you feel safe at home: Yes ROS ROS ED Constitutional Constitutional ED: Reports sweats; Denies chills, fever(s) or weight loss Eyes Eyes: Denies change in vision or diplopia ENT ENT ED: Denies ear pain, rhinorrhea or sore throat Cardiovascular Cardiovascular: Reports chest pain and racing heartbeat; Denies orthopnea or palpitations Respiratory/Chest Respiratory/Chest: Denies cough, dyspnea or orthopnea Gastrointestinal Gastrointestinal: Reports abdominal pain, diarrhea, nausea and vomiting Genitourinary Genitourinary ED: Denies dysuria, hematuria or urinary frequency Musculoskeletal Musculoskeletal: Reports back pain; Denies arthralgias, myalgias or neck pain Integumentary Denies abscess or rash Neurologic Neurologic: Denies headache(s), paresthesias or weakness Psychiatric Psychiatric: Denies anxiety, depression, suicidal ideation or suicidal thoughts Endocrine Endocrinology: Denies polydipsia, polyphagia or polyuria Allergic/Immunologic Allergic/Immunologic ED: Denies mouth swelling, tongue swelling or urticaria EXAM Physical Exam Const Vital Signs: 08/26/23 10:38 08/26/23 12:37 08/26/23 14:02 Temperature 96.8 F L Temperature Source Temporal Pulse Rate 131 H 117 H 116 H Respiratory Rate 14 18 18 Blood Pressure 153/98 H 135/79 H 152/82 H Blood Pressure Mean 116 97 105 Pulse Ox 96 98 98 Oxygen Delivery Method Room Air Room Air Room Air Positive well nourished and well developed General Appearance ED: well developed HEENT Reports normocephalic, head/scalp atraumatic and dry mucous membranes Mouth ED: Yes dry mucous membranes Mouth: dry mucous membranes Eyes PERRL and EOMs intact bilaterally Neck no lymphadenopathy, supple and no JVD Chest Wall Chest Narrative: Tenderness palpation of the lower anterior posterior chest Resp normal respiratory effort and clear to auscultation bilaterally Cardio regular rate, regular rhythm and no murmurs Rate: tachycardic GI normal to inspection, nondistended, normoactive bowel sounds Palpation: soft and tender RUQ Back/Spine no CVA tenderness and normal ROM Extremity normal to inspection General Extremety ED: Negative for edema General Extremity: Negative for edema Neuro oriented x3 and CN's II-XII intact bilaterally Sensorium / Orientation: alert Motor Exam: strength 5/5 throughout Psych mental status grossly normal Mood & Affect: Negative for depressed or tearful Skin no rashes or lesions noted and no wounds MDM MDM MDM Narrative Medical decision making narrative: IV was established the patient received 2 L of normal saline. Patient also received Dilaudid for pain Zofran for nausea vomiting. White count elevated 18.8 hemoglobin of 15.8 and platelet count of 331. Lab called to say that the patient's blood work was significantly lipemic which is greatly inhibiting their ability to run the labs quickly. CO2 is 12 anion gap of 33 creatinine 1.18 sodium 121 glucose 1085 phosphorus 5.2 troponin is 6 test is negative large acetone in blood. VBG with a pH of 7.324 pCO2 of 26 PvO2 58 with a bicarb of 13.8. Per the lab the INR is not able to be run because of the Lipids. We will need to investigate this further. My independent interpretation of the chest x-ray is no acute process. CT of the abdomen pelvis was obtained. This did not demonstrate any obvious bowel obstruction or biliary dilatation per radiology. Please see the radiologist read for further details. Patient after her fluid bolus was started on an insulin drip. Plan will be admission into the hospital to the ICU. History & Record Review Discussion w/independent historian: Patient and Significant other Lab Data Attestation: I reviewed the patient's lab results. Labs: Laboratory Results - last 24 hr 08/26/23 08/26/23 08/26/23 10:49 11:00 12:28 WBC 18.8 H RBC 5.54 H Hgb 15.8 H Hct 42.6 MCV 76.9 L MCH 28.5 MCHC 37.1 H RDW Std Deviation 37.9 RDW Coeff of Gerard 13.9 Plt Count 331 MPV 11.2 Immature Gran % (Auto) 0.700 Neut % (Auto) 87.4 H Lymph % (Auto) 9.2 L [place] % (Auto) 2.2 Eos % (Auto) 0.1 Baso % (Auto) 0.4 Absolute Neuts (auto) 16.4 H Absolute Lymphs (auto) 1.72 Nucleated RBC % 1.1 PT Cancelled INR Cancelled Sodium 121 L Potassium 4.1 Chloride 76 L Carbon Dioxide 12.0 L Anion Gap 33 H BUN 23 H Creatinine 1.18 H Estim Creat Clear Calc 67.15 Est GFR (MDRD) Af Amer 66 Est GFR (MDRD) Non-Af 55 L BUN/Creatinine Ratio 19.5 Glucose 1085 H* Calcium 8.6 Phosphorus 5.2 H Magnesium 1.7 Total Bilirubin 1.10 H Direct Bilirubin 0.13 AST TNP ALT TNP Alkaline Phosphatase 95 Troponin I High Sens 6 Total Protein TNP Albumin 3.0 L Lipase 56 Serum , Qual NEGATIVE Urine Color Yellow Urine Clarity Clear Urine pH 5.0 Ur Specific [place] 1.020 Urine Protein 100 H Urine Glucose (UA) 1000 H Urine Ketones 150 A* Urine Occult Blood 10 H Urine Nitrite Negative Urine Bilirubin Negative Urine Urobilinogen Normal Ur Leukocyte Esterase Negative Urine RBC 0 SEEN Urine WBC 0 SEEN Ur Squamous Epith Cells 0-5 SEEN Urine Bacteria 0 SEEN Urine Mucus 0 SEEN Acetone Level LARGE H POC Glucose > 500 H* ABG Data ABG results: ABG 08/26/23 11:17 Specimen Type KRYSTAL Sample Site Not entered VBG pH 7.32 VBG pO2 58 H VBG HCO3 14 L VBG Total CO2 15 L VBG O2 Sat (Calc) 88 H VBG Base Excess -12 L POC Mix VBG pCO2 Pt Tmp 26.7 L O2 Delivery Device Not entered Radiography Diagnostic Testing: Clinical Impression(s) from Imaging Studies Chest X-Ray 08/26/23 10:59 IMPRESSION: Normal x-ray examination of the chest. Electronically Signed: Babar Wheat MD at 12:50 EDT , Abdomen/Pelvis CT 08/26/23 12:36 IMPRESSION: Hepatosplenomegaly. Prior cholecystectomy. No biliary dilatation. Right renal calcifications could be urinary or vascular. No hydronephrosis. 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
[2023-08-26] MEDS: 0.9% Normal Saline (1000mL) 1,000 ML 999 ML IV ×5 (11:11→17:33)
[2023-08-26 11:14] LABS: Bedside Glucose > 500 mg/dL (74-106)
[2023-08-26 11:20] LABS: Blood Gas Specimen Type VEN; O2 Delivery Device Not entered; SITE Not entered; VBG BASE EXCESS -12 mmol/L (-1.0-3.5); VBG Bicarbonate 14 mmol/L (22-26); VBG PO2 58 mmHg (25-40); VBG SO2 88 % (50-70); VBG TCO2 15 mmol/L (23-33); VBG pCO2 26.7 mmHg (41-51); VBG pH 7.32 (7.32-7.42)
[2023-08-26 11:42] LABS: Internal QC Validated? YES +Cl - CLEAR BKGD; Pregnancy, Serum, hCG Quali. NEGATIVE Negative
[2023-08-26] MEDS: HYDROmorphone 1 MG/ML Syringe IV ×3 (12:22→19:59)
[2023-08-26] MEDS: Ondansetron 4 MG/2 ML Vial IV ×2 (12:23→22:01)
[2023-08-26 12:29] LABS: Absolute Lymphocyte Count 1.72 X10^3/uL (0.83-4.51); Absolute Neutrophil Count 16.4 X10^3/uL (2.0-7.7); Basophil# 0.08 X10^3/uL; Basophil% 0.4 % (0-1); Eosinophil# 0.01 X10^3/uL; Eosinophils% 0.1 % (0-5); Hematocrit 42.6 % (37-47); Lymphocyte # 1.72 X10^3/ul (0.83-4.51); Lymphocyte % 9.2 % (19-41); Mean Corp Hgb Conc 37.1 g/dL (32-36); Mean Corpuscular Hgb 28.5 pg (27.0-32.0); Mean Corpuscular Volume 76.9 fL (81-99); Mean Platelet Vol. 11.2 fl (6.2-12.0); Monocyte# 0.41 X10^3/uL; Monocyte% 2.2 % (0-10); NRBC Flagged by Analyzer 1.1 % (0-5); Neutrophil # 16.43 X10^3/uL (2.7-7.7); Neutrophil % 87.4 % (47-70); Platelet Count 331 K/mm3 (150-450); RBC Distribution Width CV 13.9 % (11.6-14.6); RBC Distribution Width SD 37.9 fl (35.1-43.9); Red Blood Count 5.54 M/mm3 (4.2-5.4); White Blood Count 18.8 K/mm3 (4.4-11.0)
[2023-08-26 12:30] LABS: Hemoglobin 15.8 g/dL (12.0-15.0)
[2023-08-26 12:33] LABS: Anion Gap 33 (5-15); BUN 23 mg/dL (7-18); BUN/Creat Ratio 19.5 RATIO (10-20); Chloride 76 mmol/L (98-107); Creatinine, Serum 1.18 mg/dL (0.55-1.02); EST Glomerular Filtration Rate 55 mL/min (>60); Est Glom Filt Rate - Afr Amer 66 mL/min (>60); Estimated Creatinine Clearance 67.15 ml/min; Glucose 1085 mg/dL (74-106); Phosphorus 5.2 mg/dL (2.5-4.9); Potassium 4.1 mmol/L (3.5-5.1); Sodium Level 121 mmol/L (136-145); Troponin-I HS 6 pg/mL (3.0-54.0)
[2023-08-26 12:34] LABS: Bacteria 0 SEEN /hpf (None Seen); Mucous, Urine 0 SEEN /hpf (<or=2+); Red Blood Cells-Urine 0 SEEN /hpf (0-5); White Blood Cells 0 SEEN /hpf (0-5)
--- NOTE | 2023-08-26 12:36 | CT_ITS ---
STUDY: CT ABDOMEN AND PELVIS WITH CONTRAST REASON FOR EXAM: Female, 37 years old. Abdominal pain RADIATION DOSAGE (If Supplied By Facility): CTDIvol = ( 13.43 ) mGy, DLP = ( 1122.14 ) mGycm TECHNIQUE: Transaxial images were obtained from the dome of the diaphragm to the symphysis pubis without oral contrast. IV 100mL Isovue-370 was administered. Sagittal and coronal images were reconstructed. Individualized dose optimization techniques were used for this CT. COMPARISON: None. FINDINGS: The visualized lung bases are unremarkable. The visualized portions of the heart are within normal limits. There is hepatomegaly with diffuse hepatic enlargement. There are surgical clips in the gallbladder fossa consistent with a prior cholecystectomy. There is mild splenomegaly. Normal pancreas. There is 3.1 cm left adrenal mass There are 0.3 and 0.2 cm calcifications of the right kidney. Normal left kidney. Normal visualized stomach. Normal small intestine. Normal colon. The appendix is visualized and appears normal. There is advanced atherosclerotic calcification of the abdominal aorta, with moderate distal narrowing, without a demonstrated aneurysm. Normal inferior vena cava. Normal retroperitoneum. Normal urinary bladder. Normal visualized uterus. There is no free fluid in the abdomen or pelvis. Normal abdominal wall. Normal osseous structures. CT/Abdomen/Pelvis W IV Cont ONLY IMPRESSION: Hepatosplenomegaly. Prior cholecystectomy. No biliary dilatation. Right renal calcifications could be urinary or vascular. No hydronephrosis. Electronically Signed: Babar Wheat MD at 14:21 EDT ,
[2023-08-26 12:45] LABS: Color, Urine Yellow (Yellow); Glucose, Dipstick 1000 mg/dl (Normal); Leukocyte Esterase-Dipstick Negative /ul (Negative); Nitrite-Dipstick Negative (Negative); Occult Blood-Urine 10 /ul (Negative); Protein-Dipstick 100 mg/dl (Negative); Urine Bilirubin Dipstick Negative (Negative); Urine Clarity Clear (Clear); Urine Urobilinogen Normal (Normal)
[2023-08-26 12:58] LABS: Ketone-Dipstick 150 mg/dl (Negative)
--- NOTE | 2023-08-26 13:01 | NURSING ---
Urine ketones 150, Dr. garcia aware.
[2023-08-26 13:25] LABS: Squamous Epithelial Cells - UA 0-5 SEEN /hpf (5-10)
[2023-08-26 13:28] LABS: Calcium,Total 8.6 mg/dL (8.5-10.1)
[2023-08-26] MEDS: Insulin Lispro 100 UNIT in 0.9% Normal Saline (100mL Bag) 99 ML 7.2 UNIT CONT INF (13:39)
[2023-08-26 14:21] LABS: Alkaline Phosphatase 95 U/L (45-117); Bilirubin, Direct 0.13 mg/dL (0.00-0.30); Lipase 56 U/L (13-75); Magnesium 1.7 mg/dL (1.6-2.6)
[2023-08-26 15:12] LABS: Bedside Glucose > 500 mg/dL (74-106)
[2023-08-26] MEDS: Ondansetron 4 MG/2 ML Vial 8 MG IV (15:58)
[2023-08-26 16:26] LABS: Bedside Glucose 440 mg/dL (74-106)
[2023-08-26 16:50] LABS: Glucose 647 mg/dL (74-106)
[2023-08-26 17:11] LABS: Bedside Glucose 423 mg/dL (74-106)
--- NOTE | 2023-08-26 17:32 | HP.PCM.HOS_ITS ---
HPI - General General Date of Admission: 08/26/23 Date of Service: 08/26/23 Chief Complaint: Nausea vomiting and diarrhea HPI Narrative VENACNIO TAVAREZ, is a 37 F who presents to the emergency room at [facility] with complaints of nausea vomiting and diarrhea since yesterday, she is also complaining of thirst. Workup in the emergency room revealed an elevated white blood cell count at 18.8, hemoglobin was 15.8, glucose was 647, lab is having difficulty with obtaining a BMP on the patient so I do not have an anion gap. Venous blood gas showed a pH of 7.32, patient's bicarb was 14. Patient will be admitted to ICU for DKA, I believe this is a direct result of gastroenteritis, she will be given IV fluids, IV insulin, labs will be monitored. [facility] Medical History Anemia Bipolar disorder Anxiety Depression Diabetes GERD (gastroesophageal reflux disease) Former smoker Migraines Headache DVT (deep venous thrombosis) Chronic anticoagulation Type 1 diabetes mellitus Abnormal angiogram Peripheral artery disease HTN (hypertension) Hyperlipidemia Home Medications ?Medication ?Instructions ?Recorded ?Last Taken ?Type aspirin 81 mg tablet,delayed 81 mg PO DAILY 30 days #30 tabs 03/14/23 Unknown Rx release (Adult Low Dose Aspirin) insulin syr/ndl U100 half ángel 0.3 #100 ea 03/14/23 Unknown Rx mL 30 gauge x 1/2 pantoprazole 40 mg granules 40 mg PO BID 05/14/23 Unknown History delayed-release for susp in packet insulin glargine-yfgn 100 unit/mL 35 unit (0.35 mL) subcut BIDCM #0 05/15/23 Unknown Rx (3 mL) subcutaneous pen mL insulin lispro 100 unit/mL 35 unit (0.35 mL) subcut TID #15 mL 05/15/23 Unknown Rx subcutaneous pen (Humalog KwikPen (U-100) Insulin) warfarin 10 mg tablet 10 mg PO DAILY #30 tabs 06/04/23 Unknown Rx atorvastatin 40 mg tablet 40 mg PO DAILY 30 days #30 tabs 07/13/23 Unknown Rx losartan 25 mg tablet 25 mg PO DAILY #30 tabs 07/13/23 Unknown Rx metoprolol succinate 100 mg 100 mg PO DAILY 30 days #30 tabs 07/13/23 Unknown Rx tablet,extended release 24 hr (Toprol XL) pen needle, diabetic 32 gauge x #1,200 ea 07/13/23 Unknown Rx 32 (BD Ultra-Fine Elyssa Pen Needle) mirtazapine 7.5 mg tablet 7.5 mg PO QHS #30 tabs 07/14/23 Unknown Rx venlafaxine 37.5 mg 37.5 mg PO DAILY #60 caps 07/14/23 Unknown Rx capsule,extended release 24 hr blood sugar diagnostic (OneTouch #100 ea 07/17/23 Unknown Rx Verio test strips) blood-glucose meter (OneTouch #1 ea 07/17/23 Unknown Rx Verio Flex Meter) lancets 30 gauge (Onetouch Delica #200 ea 07/17/23 Unknown Rx Safety Lancet) levothyroxine 25 mcg capsule 25 mcg PO DAILY #30 caps 07/18/23 Unknown Rx cilostazol 50 mg tablet 50 mg PO BID #60 tabs 08/01/23 Unknown Rx pregabalin 300 mg capsule (Lyrica) 300 mg PO BID 30 days #60 caps 08/17/23 Unknown Rx hydrocodone-acetaminophen 5-325mg 1 tab PO BID 08/26/23 Unknown History 5mg-325mg Allergy/AdvReac Type Severity Reaction Status Date / Time morphine Allergy Intermediate Rash Verified 08/26/23 10:40 orange Allergy Rash Verified 08/26/23 10:40 Family History Father Hypertension Cancer lung Diabetes Mother Diabetes Hypertension Cancer bladder Dementia Surgical History History of revascularization procedure of lower extremity Hx of cholecystectomy History of intravascular stent placement Tubal ligation status History of below-knee amputation of left lower extremity S/P BKA (below knee amputation) unilateral Social History household members: spouse and children housing: house current occupational status: disabled Smoking Status: Former smoker alcohol intake: never substance use type: does not use what type of physical activity do you participate in: none seatbelt use: always do you feel safe at home: Yes ROS Constitutional Constitutional: Reports weakness; Denies anorexia, change in weight, chills, fatigue, fever(s) or night sweats Eyes Eyes: Denies blurry vision, change in vision, discharge from eye(s) or eye pain Cardiovascular Cardiovascular: Denies chest pain, claudication, edema or palpitations Respiratory/Chest Respiratory/Chest: Denies cough, hemoptysis, shortness of breath at rest or shortness of breath with exertion Gastrointestinal Gastrointestinal: Reports diarrhea, nausea and vomiting; Denies abdominal pain, constipation, hematemesis, hematochezia or melena Genitourinary Genitourinary: Denies dysuria, hematuria, urinary frequency, urinary hesitancy, urinary incontinence or urinary urgency Musculoskeletal Musculoskeletal: Denies back pain, joint pain, joint stiffness, joint swelling, myalgias or neck pain Neurologic Neurologic: Denies abnormal gait, abnormal speech, dizziness, focal weakness, headache(s), loss of vision, numbness, other visual disturbances, paresthesias, syncope or tingling Psychiatric Psychiatric: Denies anxiety, cognitive impairment, depression, irritability, mood swings or suicidal ideation Endocrine Endocrinology: Denies change in body appearance, cold intolerance, excessive sweating, heat intolerance, polydipsia or polyuria Hematologic/Lymphatic Hematologic/Lymphatic: Denies none, anemia, easy bleeding, easy bruising or lymphadenopathy Allergic/Immunologic Allergic/Immunologic: Denies rhinitis, urticaria, eczemia or asthma Vital Signs Vital Signs Vital Signs: 08/26/23 10:38 08/26/23 12:37 08/26/23 14:02 Temperature 96.8 F L Temperature Source Temporal Pulse Rate 131 H 117 H 116 H Respiratory Rate 14 18 18 Blood Pressure 153/98 H 135/79 H 152/82 H Blood Pressure Mean 116 97 105 Blood Pressure Source Blood Pressure Position Blood Pressure Location Pulse Ox 96 98 98 Oxygen Delivery Method Room Air Room Air Room Air 08/26/23 14:57 08/26/23 15:17 08/26/23 15:30 Temperature 97.5 F L 99.5 F H Temperature Source Temporal Pulse Rate 110 H 121 H 122 H Respiratory Rate 19 H 20 H 23 H Blood Pressure 152/82 H 126/85 H 140/84 H Blood Pressure Mean 105 98 102 Blood Pressure Source Monitor Monitor Blood Pressure Position Semi-Fowlers Semi-Fowlers Blood Pressure Location Left Arm Left Arm Pulse Ox 99 97 97 Oxygen Delivery Method Room Air Room Air 08/26/23 15:45 08/26/23 16:00 Temperature Temperature Source Pulse Rate 118 H 120 H Respiratory Rate 14 Blood Pressure 130/80 H 125/80 H Blood Pressure Mean 96 95 Blood Pressure Source Monitor Blood Pressure Position Semi-Fowlers Blood Pressure Location Left Arm Pulse Ox 100 Oxygen Delivery Method Room Air Weight Weight: 74.9 kg Body Mass Index (BMI) 26.6 Physical Exam Const alert, oriented x3 and no apparent distress Constitutional Narrative: Patient appears unwell General Appearance: cooperative, well kempt and well developed Orientation / Consciousness: awake, oriented to person, oriented to place and oriented to time HEENT normocephalic HEENT Narrative: Mucous membranes are dry Eyes PERRL, EOMs intact bilaterally and conjunctivae normal Neck supple, no JVD, thyroid normal and no carotid bruits General: trachea midline Resp normal respiratory effort and clear to auscultation bilaterally Auscultation: Negative for rales, rhonchi or wheezes Cardio regular rate, regular rhythm, no murmurs, no rub and no gallops GI normal to inspection, nondistended, normoactive bowel sounds, soft to palpation, non-tender and non-distended Extremity Extremity Narrative: Patient has a left below the knee amputation which is remote Skin no rashes or lesions noted General Skin Exam: no breakdown Neuro oriented x3, CN's II-XII intact bilaterally, no focal motor deficits and no sensory deficits noted Sensorium / Orientation: awake and alert Speech: speech normal Psych affect normal Results Lab / Micro Data 08/26/23 11:00 08/26/23 15:35 Labs: Laboratory Results - last 24 hr 08/26/23 10:49: POC Glucose > 500 H* 08/26/23 11:00: WBC 18.8 H, RBC 5.54 H, Hgb 15.8 H, Hct 42.6, MCV 76.9 L, MCH 28.5, MCHC 37.1 H, RDW Std Deviation 37.9, RDW Coeff of Gerard 13.9, Plt Count 331, MPV 11.2, Immature Gran % (Auto) 0.700, Neut % (Auto) 87.4 H, Lymph % (Auto) 9.2 L, [place] % (Auto) 2.2, Eos % (Auto) 0.1, Baso % (Auto) 0.4, Absolute Neuts (auto) 16.4 H, Absolute Lymphs (auto) 1.72, Nucleated RBC % 1.1, PT Cancelled, INR Cancelled, Sodium 121 L, Potassium 4.1, Chloride 76 L, Carbon Dioxide 12.0 L, A nion Gap 33 H, BUN 23 H, Creatinine 1.18 H, Estim Creat Clear Calc 67.15, Est GFR (MDRD) Af Amer 66, Est GFR (MDRD) Non-Af 55 L, BUN/Creatinine Ratio 19.5, G lucose 1085 H*, Calcium 8.6, Phosphorus 5.2 H, Magnesium 1.7, Total Bilirubin 1.10 H, Direct Bilirubin 0.13, AST TNP, ALT TNP, Alkaline Phosphatase 95, Troponin I High Sens 6, Total Protein TNP, Albumin 3.0 L, Lipase 56, Serum , Qual NEGATIVE, Acetone Level LARGE H 08/26/23 12:28: Urine Color Yellow, Urine Clarity Clear, Urine pH 5.0, Ur Specific [place] 1.020, Urine Protein 100 H, Urine Glucose (UA) 1000 H, Urine Ketones 150 A*, Urine Occult Blood 10 H, Urine Nitrite Negative, Urine Bilirubin Negative, Urine Urobilinogen Normal, Ur Leukocyte Esterase Negative, Urine RBC 0 SEEN, Urine WBC 0 SEEN, Ur Squamous Epith Cells 0-5 SEEN, Urine Bacteria 0 SEEN, Urine Mucus 0 SEEN 08/26/23 14:48: POC Glucose > 500 H* 08/26/23 14:53: Glucose 647 H* 08/26/23 15:49: POC Glucose 440 H 08/26/23 16:52: POC Glucose 423 H ABG Data ABG results: ABG 08/26/23 11:17 Specimen Type KRYSTAL Sample Site Not entered VBG pH 7.32 VBG pO2 58 H VBG HCO3 14 L VBG Total CO2 15 L VBG O2 Sat (Calc) 88 H VBG Base Excess -12 L POC Mix VBG pCO2 Pt Tmp 26.7 L O2 Delivery Device Not entered Imaging Radiology Impression Chest X-Ray 08/26/23 10:59 IMPRESSION: Normal x-ray examination of the chest. Electronically Signed: Babar Wheat MD at 12:50 EDT , Abdomen/Pelvis CT 08/26/23 12:36 IMPRESSION: Hepatosplenomegaly. Prior cholecystectomy. No biliary dilatation. Right renal calcifications could be urinary or vascular. No hydronephrosis. Electronically Signed: Babar Wheat MD at 14:21 EDT , Assessment & Plan Assessment/Plan (1) DKA (diabetic ketoacidosis): PLAN: Plan 1. Diabetic ketoacidosis secondary to gastroenteritis-patient will be admitted to ICU, insulin drip will be continued, she will be given IV fluids and labs will be monitored. #2 gastroenteritis-patient will be n.p.o., medication for nausea and vomiting will be ordered #3 essential hypertension-patient will remain on her present medications #4 hypothyroidism-patient will remain on Synthroid #5 bipolar disorder-patient will remain on her outpatient medications #6 hyperlipidemia-patient is on atorvastatin #7 peripheral vascular disease-patient is on Pletal Total clinical time spent by myself addressing the patient's medical issues, reviewing all of her data, and collaborating with patient's care team: 75 minutes Charges/Coding Visit Charges Inpatient E&M: 07445 Init Hosp L3
[2023-08-26 17:51] LABS: Anion Gap 22 (5-15); BUN 21 mg/dL (7-18); BUN/Creat Ratio 18.9 RATIO (10-20); Calcium,Total 7.8 mg/dL (8.5-10.1); Chloride 93 mmol/L (98-107); Creatinine, Serum 1.11 mg/dL (0.55-1.02); EST Glomerular Filtration Rate 59 mL/min (>60); Est Glom Filt Rate - Afr Amer 71 mL/min (>60); Estimated Creatinine Clearance 72.49 ml/min; Glucose 576 mg/dL (74-106); Potassium 3.9 mmol/L (3.5-5.1); Sodium Level 130 mmol/L (136-145)
[2023-08-26 18:11] LABS: Bedside Glucose 382 mg/dL (74-106)
[2023-08-26] MEDS: 0.9% Normal Saline (1000mL) 1,000 ML 500 ML IV (18:32)
[2023-08-26] MEDS: 0.9% Saline Lock 10 ML Syringe IV (19:59)
[2023-08-26 20:33] LABS: Bedside Glucose 280 mg/dL (74-106)
[2023-08-26] MEDS: 0.9% Normal Saline (1000mL) 1,000 ML 250 ML IV (20:39)
[2023-08-26 21:04] LABS: Anion Gap 16 (5-15); BUN 18 mg/dL (7-18); Calcium,Total 7.1 mg/dL (8.5-10.1); Chloride 101 mmol/L (98-107); EST Glomerular Filtration Rate 66 mL/min (>60); Est Glom Filt Rate - Afr Amer 80 mL/min (>60); Estimated Creatinine Clearance 80.47 ml/min; Glucose 393 mg/dL (74-106); Potassium 4.8 mmol/L (3.5-5.1); Sodium Level 134 mmol/L (136-145)
[2023-08-26 21:23] LABS: Bedside Glucose 287 mg/dL (74-106)
[2023-08-26] MEDS: Mirtazapine 15 MG Tablet 7.5 MG PO (22:00)
[2023-08-26] MEDS: Pregabalin 75 MG Capsule 300 MG PO (22:01)
[2023-08-26] MEDS: HYDROcodone Bitartrate/Apap 5/325 Tablet PO (22:01)
[2023-08-26] MEDS: Pantoprazole Sodium 40 MG Tablet PO (22:01)
[2023-08-26] MEDS: Cilostazol 50 MG Tablet PO (22:01)
[2023-08-26 22:12] LABS: Bedside Glucose 279 mg/dL (74-106)
[2023-08-26] MEDS: KCL 20MEQ in D5.45NS 20 MEQ/1,000 ML IV.SOLN. 125 MEQ IV (23:00)
[2023-08-26 23:41] LABS: Bedside Glucose 228 mg/dL (74-106)
[2023-08-27] VITALS (18 sets, daily range): BP systolic 104–152; BP diastolic 59–85; PULSE 96–119; RESP 12–18; TEMP 36.3–36.9; O2SAT 93–100; BMI 27.3
[2023-08-27 00:55] LABS: Anion Gap 16 (5-15); BUN 15 mg/dL (7-18); Calcium,Total 6.9 mg/dL (8.5-10.1); Chloride 106 mmol/L (98-107); Creatinine, Serum 0.88 mg/dL (0.55-1.02); EST Glomerular Filtration Rate 77 mL/min (>60); Est Glom Filt Rate - Afr Amer 93 mL/min (>60); Estimated Creatinine Clearance 91.44 ml/min; Glucose 320 mg/dL (74-106); Potassium 4.2 mmol/L (3.5-5.1); Sodium Level 137 mmol/L (136-145)
[2023-08-27 01:22] LABS: Bedside Glucose 240 mg/dL (74-106)
[2023-08-27 01:22] LABS: Bedside Glucose 251 mg/dL (74-106)
[2023-08-27] MEDS: 0.9% Saline Lock 10 ML Syringe IV ×2 (02:07→07:54)
[2023-08-27] MEDS: HYDROmorphone 1 MG/ML Syringe IV ×4 (02:08→19:38)
[2023-08-27 02:22] LABS: Bedside Glucose 239 mg/dL (74-106)
[2023-08-27 04:02] LABS: Bedside Glucose 247 mg/dL (74-106)
[2023-08-27 04:27] LABS: International Normalized Ratio 1.1
[2023-08-27 05:10] LABS: Anion Gap 14 (5-15); BUN 12 mg/dL (7-18); BUN/Creat Ratio 12.9 RATIO (10-20); Calcium,Total 7.8 mg/dL (8.5-10.1); Chloride 104 mmol/L (98-107); Creatinine, Serum 0.93 mg/dL (0.55-1.02); EST Glomerular Filtration Rate 72 mL/min (>60); Est Glom Filt Rate - Afr Amer 87 mL/min (>60); Estimated Creatinine Clearance 86.53 ml/min; Glucose 319 mg/dL (74-106); Potassium 3.7 mmol/L (3.5-5.1); Sodium Level 136 mmol/L (136-145)
[2023-08-27 05:29] LABS: Bedside Glucose 272 mg/dL (74-106)
[2023-08-27 06:33] LABS: Bedside Glucose 223 mg/dL (74-106)
[2023-08-27] MEDS: KCL 20MEQ in D5.45NS 20 MEQ/1,000 ML IV.SOLN. 125 MEQ IV ×2 (06:52→14:56)
[2023-08-27] MEDS: Ondansetron 4 MG/2 ML Vial IV ×2 (07:50→21:05)
[2023-08-27 08:03] LABS: Absolute Lymphocyte Count 2.67 X10^3/uL (0.83-4.51); Absolute Neutrophil Count 13.8 X10^3/uL (2.0-7.7); Basophil# 0.05 X10^3/uL; Basophil% 0.3 % (0-1); Eosinophil# 0.01 X10^3/uL; Eosinophils% 0.1 % (0-5); Hematocrit 39.4 % (37-47); Lymphocyte # 2.67 X10^3/ul (0.83-4.51); Lymphocyte % 15.6 % (19-41); Mean Corp Hgb Conc 37.3 g/dL (32-36); Mean Corpuscular Hgb 30.1 pg (27.0-32.0); Mean Corpuscular Volume 80.6 fL (81-99); Mean Platelet Vol. 12.5 fl (6.2-12.0); Monocyte# 0.55 X10^3/uL; Monocyte% 3.2 % (0-10); NRBC Flagged by Analyzer 0.1 % (0-5); Neutrophil % 80.3 % (47-70); Platelet Count 218 K/mm3 (150-450); RBC Distribution Width CV 14.9 % (11.6-14.6); RBC Distribution Width SD 43.4 fl (35.1-43.9); Red Blood Count 4.89 M/mm3 (4.2-5.4); White Blood Count 17.2 K/mm3 (4.4-11.0)
[2023-08-27 08:04] LABS: Hemoglobin 14.7 g/dL (12.0-15.0)
[2023-08-27 08:04] LABS: Bedside Glucose 207 mg/dL (74-106)
[2023-08-27 08:52] LABS: Anion Gap 15 (5-15); BUN 7 mg/dL (7-18); BUN/Creat Ratio 9.5 RATIO (10-20); Calcium,Total 7.2 mg/dL (8.5-10.1); Chloride 107 mmol/L (98-107); Creatinine, Serum 0.73 mg/dL (0.55-1.02); EST Glomerular Filtration Rate 95 mL/min (>60); Est Glom Filt Rate - Afr Amer 115 mL/min (>60); Estimated Creatinine Clearance 111.58 ml/min; Glucose 268 mg/dL (74-106); Potassium 3.7 mmol/L (3.5-5.1); Sodium Level 139 mmol/L (136-145)
[2023-08-27 09:07] LABS: Bedside Glucose 188 mg/dL (74-106)
[2023-08-27] MEDS: Losartan Potassium 25 MG Tablet PO (10:08)
[2023-08-27] MEDS: Aspirin E.C. 81 MG Tablet PO (10:08)
[2023-08-27] MEDS: HYDROcodone Bitartrate/Apap 5/325 Tablet PO ×2 (10:08→21:05)
[2023-08-27] MEDS: Cilostazol 50 MG Tablet PO ×2 (10:09→21:07)
[2023-08-27] MEDS: Atorvastatin Calcium 40 MG Tablet PO (10:09)
[2023-08-27] MEDS: Pantoprazole Sodium 40 MG Tablet PO ×2 (10:09→21:07)
[2023-08-27] MEDS: Venlafaxine XR 37.5 MG Capsule PO (10:09)
[2023-08-27] MEDS: Metoprolol(XL)Succ 100 MG Tablet PO (10:10)
[2023-08-27] MEDS: Pregabalin 75 MG Capsule 300 MG PO ×2 (10:36→21:04)
[2023-08-27] MEDS: Insulin Lispro 100 UNIT/ML INSULN.PEN SC ×3 (11:36→21:16)
[2023-08-27 11:52] LABS: Bedside Glucose 285 mg/dL (74-106)
--- NOTE | 2023-08-27 14:11 | PN.HOSP_ITS ---
Reason for Visit Reason for Visit: Diagnoses Type 2 diabetes mellitus with ketoacidosis without coma (08/26/23) Subjective Subjective Patient was seen and examined today, she still complains of some lower back pain, this morning when I examined her she did not feel well, she complained of some abdominal discomfort also. She was taken off her insulin drip this morning, this afternoon we have transitioned her over to a diabetic diet. Objective Data Objective Data Vital Signs: Vital Signs Temp Pulse Resp BP Pulse Ox O2 Del Method 97.3 F L 109 H 17 141/78 H 97 Room Air 08/27/23 12:00 08/27/23 12:00 08/27/23 12:00 08/27/23 12:00 08/27/23 12:00 08/27/23 12:00 Oxygen Delivery Method Room Air Weight: 76.9 kg Body Mass Index (BMI) 27.3 Intake & Output: Intake and Output for Last 24 Hours 08/25/23 08/26/23 08/27/23 23:59 23:59 23:59 Intake Total 6608.21 / 6609.91 1337.22 / 1337.22 Output Total 1100 / 1100 825 / 825 Balance 5508.21 / 5509.91 512.22 / 512.22 Lab / Micro Data 08/27/23 03:20 08/27/23 07:40 Labs: Laboratory Results - last 24 hr 08/26/23 11:00: Magnesium 1.7, Total Bilirubin 1.10 H, Direct Bilirubin 0.13, AST TNP, ALT TNP, Alkaline Phosphatase 95, Total Protein TNP, Albumin 3.0 L, Lipase 56 08/26/23 12:59: Sodium Cancelled, Potassium Cancelled, Chloride Cancelled, Carbon Dioxide Cancelled, Anion Gap Cancelled, BUN Cancelled, Creatinine Cancelled, Estim Creat Clear Calc Cancelled, Est GFR (MDRD) Af Amer Cancelled, Est GFR (MDRD) Non-Af Cancelled, BUN/Creatinine Ratio Cancelled, Glucose Cancelled, Calcium Cancelled 08/26/23 14:48: POC Glucose > 500 H* 08/26/23 14:53: Glucose 647 H* 08/26/23 15:35: Sodium 130 L, Potassium 3.9, Chloride 93 L, Carbon Dioxide 15.0 L, Anion Gap 22 H, BUN 21 H, Creatinine 1.11 H, Estim Creat Clear Calc 72.49, Est GFR (MDRD) Af Amer 71, Est GFR (MDRD) Non-Af 59 L, BUN/Creatinine Ratio 18.9, Glucose 576 H*, Calcium 7.8 L 08/26/23 15:49: POC Glucose 440 H 08/26/23 16:52: POC Glucose 423 H 08/26/23 17:52: POC Glucose 382 H 08/26/23 19:30: Sodium 134 L, Potassium 4.8, Chloride 101, Carbon Dioxide 17.0 L , Anion Gap 16 H, BUN 18, Creatinine 1.00, Estim Creat Clear Calc 80.47, Est GFR (MDRD) Af Amer 80, Est GFR (MDRD) Non-Af 66, BUN/Creatinine Ratio 18.0, Glucose 393 H, Calcium 7.1 L 08/26/23 20:09: POC Glucose 280 H 08/26/23 21:01: POC Glucose 287 H 08/26/23 21:54: POC Glucose 279 H 08/26/23 23:01: POC Glucose 228 H 08/26/23 23:15: Sodium 137, Potassium 4.2, Chloride 106, Carbon Dioxide 15.0 L, Anion Gap 16 H, BUN 15, Creatinine 0.88, Estim Creat Clear Calc 91.44, Est GFR (MDRD) Af Amer 93, Est GFR (MDRD) Non-Af 77, BUN/Creatinine Ratio 17.0, Glucose 320 H, Calcium 6.9 L 08/26/23 23:58: POC Glucose 251 H 08/27/23 01:03: POC Glucose 240 H 08/27/23 02:03: POC Glucose 239 H 08/27/23 03:20: WBC 17.2 H, RBC 4.89, Hgb 14.7, Hct 39.4, MCV 80.6 L, MCH 30.1, MCHC 37.3 H, RDW Std Deviation 43.4, RDW Coeff of Gerard 14.9 H, Plt Count 218, MPV 12.5 H, Immature Gran % (Auto) 0.500, Neut % (Auto) 80.3 H, Lymph % (Auto) 15.6 L, [place] % (Auto) 3.2, Eos % (Auto) 0.1, Baso % (Auto) 0.3, Absolute Neuts (auto) 13.8 H, Absolute Lymphs (auto) 2.67, Nucleated RBC % 0.1, PT 14.0, INR 1.1, Sodium 136, Potassium 3.7, Chloride 104, Carbon Dioxide 18.0 L, Anion Gap 14, BUN 12, Creatinine 0.93, Estim Creat Clear Calc 86.53, Est GFR (MDRD) Af Amer 87, Est GFR (MDRD) Non-Af 72, BUN/Creatinine Ratio 12.9, Glucose 319 H, Calcium 7.8 L, Acetone Level MODERATE H 08/27/23 03:39: POC Glucose 247 H 08/27/23 05:07: POC Glucose 272 H 08/27/23 06:11: POC Glucose 223 H 08/27/23 07:40: Sodium 139, Potassium 3.7, Chloride 107, Carbon Dioxide 17.0 L, Anion Gap 15, BUN 7, Creatinine 0.73, Estim Creat Clear Calc 111.58, Est GFR (MDRD) Af Amer 115, Est GFR (MDRD) Non-Af 95, BUN/Creatinine Ratio 9.5 L, G lucose 268 H, Calcium 7.2 L 08/27/23 07:42: POC Glucose 207 H 08/27/23 08:48: POC Glucose 188 H 08/27/23 11:32: POC Glucose 285 H Radiography Diagnostic Testing: Radiology Impression Abdomen/Pelvis CT 08/26/23 12:36 IMPRESSION: Hepatosplenomegaly. Prior cholecystectomy. No biliary dilatation. Right renal calcifications could be urinary or vascular. No hydronephrosis. Electronically Signed: Babar Wheat MD at 14:21 EDT , Physical Exam Narrative alert, oriented x3 and no apparent distress Constitutional Narrative: Patient appears unwell General Appearance: cooperative, well kempt and well developed Orientation / Consciousness: awake, oriented to person, oriented to place and oriented to time HEENT normocephalic HEENT Narrative: Mucous membranes are dry Eyes PERRL, EOMs intact bilaterally and conjunctivae normal Neck supple, no JVD, thyroid normal and no carotid bruits General: trachea midline Resp normal respiratory effort and clear to auscultation bilaterally Auscultation: Negative for rales, rhonchi or wheezes Cardio regular rate, regular rhythm, no murmurs, no rub and no gallops GI normal to inspection, nondistended, normoactive bowel sounds, soft to palpation, non-tender and non-distended Extremity Extremity Narrative: Patient has a left below the knee amputation which is remote Skin no rashes or lesions noted General Skin Exam: no breakdown Neuro oriented x3, CN's II-XII intact bilaterally, no focal motor deficits and no sensory deficits noted Sensorium / Orientation: awake and alert Speech: speech normal Psych affect normal Assessment & Plan Assessment/Plan (1) Nausea, vomiting, and diarrhea: (2) DKA (diabetic ketoacidosis): PLAN: Plan 1. Diabetic ketoacidosis secondary to gastroenteritis-patient will be switched to MedSurg status, her diet was advanced and her blood sugars will be monitored, I will place the patient back on basal insulin #2 gastroenteritis-patient will be n.p.o., medication for nausea and vomiting will be ordered #3 essential hypertension-patient will remain on her present medications #4 hypothyroidism-patient will remain on Synthroid #5 bipolar disorder-patient will remain on her outpatient medications #6 hyperlipidemia-patient is on atorvastatin #7 peripheral vascular disease-patient is on Pletal Total clinical time spent by myself addressing the patient's medical issues, reviewing all of her data, and collaborating with patient's care team: 35 minutes Charges/Coding Visit Charges Inpatient E&M: 72052 Subs Hosp L2
[2023-08-27] MEDS: Insulin Glargine-YFGN 100 UNIT/ML Pen 30 UNIT SC ×2 (14:46→21:15)
[2023-08-27 17:30] LABS: Bedside Glucose 280 mg/dL (74-106)
[2023-08-27] MEDS: Mirtazapine 15 MG Tablet 7.5 MG PO (21:05)
[2023-08-27 21:37] LABS: Bedside Glucose 313 mg/dL (74-106)
[2023-08-27] MEDS: KCL 20MEQ in D5.45NS 20 MEQ/1,000 ML IV.SOLN. 100 MEQ IV (22:36)
[2023-08-28] MEDS: HYDROmorphone 1 MG/ML Syringe IV ×2 (01:07→06:34)
[2023-08-28 02:00] VITALS: BP 102/62; PULSE 102; RESP 15; TEMP 36.7; O2SAT 95
[2023-08-28] MEDS: Levothyroxine 25 MCG TABLET PO (06:31)
[2023-08-28 08:00] VITALS: BP 134/77; PULSE 88; RESP 16; TEMP 36.8; O2SAT 96
[2023-08-28] MEDS: Insulin Lispro 100 UNIT/ML INSULN.PEN SC (08:21)
--- NOTE | 2023-08-28 09:08 | DCINST_ITS ---
Discharge Instructions Diet Discharge Diet: 1800 Calorie Control Diet Activity Discharge Activity: Return to Normal Activity Weight Bearing Status: Full weight bearing Follow Up Care Test Results: Test results from this visit will be discussed in further detail at your follow- up appointment, if applicable. Discharge Plan Admission Admit Date/Time: 08/26/23 14:35 Primary Reason for Your Visit: DKA Attending Provider: Ángel Sales Primary Care Provider: Autumn Whitt Discharge Orders/Prescriptions Prescriptions: Continued atorvastatin 40 mg tablet 40 mg PO DAILY 30 Days Qty: 30 2RF metoprolol succinate [Toprol XL] 100 mg tablet extended release 24 hr 100 mg PO DAILY 30 Days Qty: 30 2RF losartan 25 mg tablet 25 mg PO DAILY Qty: 30 5RF (DME) pen needle, diabetic [BD Ultra-Fine Elyssa Pen Needle] 32 gauge x 5/32 needle See Rx Instructions .Route Qty: 1200 1RF Rx Instructions: QID cilostazol 50 mg tablet 50 mg PO BID Qty: 60 2RF venlafaxine 37.5 mg capsule,extended release 24hr 37.5 mg PO DAILY Qty: 60 0RF Rx Instructions: Take 37.5 mg x1 week then increase to 75 mg (2 tablets) mirtazapine 7.5 mg tablet 7.5 mg PO QHS Qty: 30 0RF levothyroxine 25 mcg capsule 25 mcg PO DAILY Qty: 30 0RF (DME) insulin syr/ndl U100 half ángel 0.3 mL 30 gauge x 1/2 syringe See Rx Instructions .Route Qty: 100 0RF Rx Instructions: As directed aspirin [Adult Low Dose Aspirin] 81 mg tablet,delayed release (DR/EC) 81 mg PO DAILY 30 Days Qty: 30 0RF pantoprazole [address] for susp in packet 40 mg PO BID insulin glargine-yfgn 100 unit/mL (3 mL) Insulin Pen 35 unit subcut BIDCM Qty: 0 0RF insulin lispro [Humalog KwikPen Insulin] 100 unit/mL insulin pen 35 unit subcut TID Qty: 15 0RF warfarin 10 mg tablet 10 mg PO DAILY Qty: 30 0RF hydrocodone-acetaminophen 5-325 mg tablet 1 tab PO BID (DME) blood-glucose meter [OneTouch Verio Flex meter] [facility] See Rx Instructions .Route Qty: 1 0RF Rx Instructions: As directed (DME) OneTouch Verio test strips Strip See Rx Instructions .Route Qty: 100 5RF Rx Instructions: TID (DME) lancets [Onetouch Delica Safety Lancet] 30 gauge misc See Rx Instructions .Route Qty: 200 5RF Rx Instructions: TID pregabalin [Lyrica] 300 mg capsule 300 mg PO BID 30 Days Qty: 60 0RF Referrals / Follow Up: Autumn Whitt MD [Primary Care Provider] - See Referral Note (Follow-up with her office this week and get your INR repeated, it was low while you were hospitalized) Ivanna Buitrago, TECHNICAL DOCUMENTATION SPECIALIST-C [Med Staff - Adv Practice Prof] - Disposition Disposition (needs filled in before D/C Order can be placed): Home, Self Care
--- NOTE | 2023-08-28 09:13 | PCM.DC.SUM ---
Providers Date of Admission: 08/26/23 Date of Discharge: 08/28/23 Primary Care Physician: Dr. Autumn Whitt MD Reason For Visit: DKA, GASTROENTERITIS Diagnosis Discharge Diagnosis (1) Nausea, vomiting, and diarrhea: Status: Acute Code(s): R11.2 - Nausea with vomiting, unspecified; R19.7 - Diarrhea, unspecified (2) DKA (diabetic ketoacidosis): Status: Acute Code(s): E11.10 - Type 2 diabetes mellitus with ketoacidosis without coma Plan 1. Diabetic ketoacidosis secondary to gastroenteritis-patient will be switched to MedSurg status, her diet was advanced and her blood sugars will be monitored, I will place the patient back on basal insulin #2 gastroenteritis-patient will be n.p.o., medication for nausea and vomiting will be ordered #3 essential hypertension-patient will remain on her present medications #4 hypothyroidism-patient will remain on Synthroid #5 bipolar disorder-patient will remain on her outpatient medications #6 hyperlipidemia-patient is on atorvastatin #7 peripheral vascular disease-patient is on Pletal Total clinical time spent by myself addressing the patient's medical issues, reviewing all of her data, and collaborating with patient's care team: 35 minutes Medications at Discharge Home Medications aspirin 81 mg tablet,delayed release (Adult Low Dose Aspirin) 81 mg PO DAILY 30 days #30 tabs 03/14/23 insulin syr/ndl U100 half ángel 0.3 mL 30 gauge x 1/2 #100 ea 03/14/23 pantoprazole 40 mg granules delayed-release for susp in packet 40 mg PO BID 05/14/23 insulin glargine-yfgn 100 unit/mL (3 mL) subcutaneous pen 35 unit (0.35 mL) subcut BIDCM #0 mL 05/15/23 insulin lispro 100 unit/mL subcutaneous pen (Humalog KwikPen (U-100) Insulin) 35 unit (0.35 mL) subcut TID #15 mL 05/15/23 warfarin 10 mg tablet 10 mg PO DAILY #30 tabs 06/04/23 atorvastatin 40 mg tablet 40 mg PO DAILY 30 days #30 tabs 07/13/23 losartan 25 mg tablet 25 mg PO DAILY #30 tabs 07/13/23 metoprolol succinate 100 mg tablet,extended release 24 hr (Toprol XL) 100 mg PO DAILY 30 days #30 tabs 07/13/23 pen needle, diabetic 32 gauge x 5/32 (BD Ultra-Fine Elyssa Pen Needle) #1,200 ea 07/13/23 mirtazapine 7.5 mg tablet 7.5 mg PO QHS #30 tabs 07/14/23 venlafaxine 37.5 mg capsule,extended release 24 hr 37.5 mg PO DAILY #60 caps 07/14/23 blood sugar diagnostic (OneTouch Verio test strips) #100 ea 07/17/23 blood-glucose meter (OneTouch Verio Flex Meter) #1 ea 07/17/23 lancets 30 gauge (Onetouch Delica Safety Lancet) #200 ea 07/17/23 levothyroxine 25 mcg capsule 25 mcg PO DAILY #30 caps 07/18/23 cilostazol 50 mg tablet 50 mg PO BID #60 tabs 08/01/23 pregabalin 300 mg capsule (Lyrica) 300 mg PO BID 30 days #60 caps 08/17/23 hydrocodone-acetaminophen 5-325mg 5mg-325mg 1 tab PO BID 08/26/23 Hospital Course Operations None Procedures None Summary of Care Provided Minutes Spent on Discharge: 31 Hospital Course: This 37-year-old white female was seen in the emergency room at [facility] with complaints of nausea vomiting and diarrhea, patient is diabetic and uses insulin. Workup in the emergency room included labs indicated the patient was in DKA, she was also felt to have gastroenteritis. Patient was admitted to ICU on an insulin drip, blood sugars were monitored, she was given antiemetics and her gastrointestinal symptoms resolved. Patient was given IV fluids during her hospitalization. On 08/28/2023, patient was seen and examined: On examination she appeared in good health and spirits, she does not appear to be in any distress. Vital signs as documented. Skin warm and dry and without overt rashes. Neck without JVD, thyroid appears normal, trachea is midline, neck is supple. Lungs clear, normal air movement was noted. Heart exam notable for regular rhythm, normal sounds and absence of murmurs, rubs or gallops. Abdomen unremarkable and without evidence of organomegaly, masses, or abdominal aortic enlargement, bowel sounds are present in all 4 quadrants, no abdominal tenderness was noted. Extremities nonedematous, no cyanosis was noted, no clubbing was noted. Patient has a left below the knee amputation which is remote neuro: Cranial nerves II through XII are grossly intact, no focal motor deficits were noted, sensation to light touch and pinprick is intact, motor exam 5/5 throughout. Psych: Patient is alert and oriented x3, she does not appear anxious or depressed, she does not appear agitated. Patient appears stable for discharge home on 08/28/2023 in stable condition. Weight / BMI Weight Weight: 76.9 kg Body Mass Index (BMI) 27.3 ABG / Lab / Microbiology Data 08/27/23 03:20 08/27/23 07:40 Laboratory: Laboratory Results - last 24 hr 08/27/23 11:32: POC Glucose 285 H 08/27/23 17:02: POC Glucose 280 H 08/27/23 21:14: POC Glucose 313 H D/C Instructions Discharge Diet: 1800 Calorie Control Diet Weight Bearing Status: Full weight bearing Meaningful Use Info Meaningful Use Meaningful Use Diagnoses (Choose all that apply): None applicable Ischemic Stroke Statin Dosing Therapy Reference: STATIN DOSE THERAPY REFERENCE: * Patients > 75 years receive moderate or high dose statin therapy. * Patients 75 years or YOUNGER should receive HIGH intensity statin dose unless contraindicated. You will be required to document reason for non-treatment if statin daily dose does not meet guidelines. HIGH DOSE STATIN THERAPY DAILY Atorvastatin > than or = to 40 mg Rosuvastatin > than or = to 20 mg Amlodipine + Atorvastatin > than or = to 2.5/40 mg Ezetimibe + Simvastatin 10/80 mg Simvastatin 80mg Discharge Plan Admission Admit Date/Time: 08/26/23 14:35 Primary Reason for Your Visit: DKA Attending Provider: Ángel Sales Primary Care Provider: Autumn Whitt Discharge Orders/Prescriptions Prescriptions: Continued atorvastatin 40 mg tablet 40 mg PO DAILY 30 Days Qty: 30 2RF metoprolol succinate [Toprol XL] 100 mg tablet extended release 24 hr 100 mg PO DAILY 30 Days Qty: 30 2RF losartan 25 mg tablet 25 mg PO DAILY Qty: 30 5RF (DME) pen needle, diabetic [BD Ultra-Fine Elyssa Pen Needle] 32 gauge x 5/32 needle See Rx Instructions .Route Qty: 1200 1RF Rx Instructions: QID cilostazol 50 mg tablet 50 mg PO BID Qty: 60 2RF venlafaxine 37.5 mg capsule,extended release 24hr 37.5 mg PO DAILY Qty: 60 0RF Rx Instructions: Take 37.5 mg x1 week then increase to 75 mg (2 tablets) mirtazapine 7.5 mg tablet 7.5 mg PO QHS Qty: 30 0RF levothyroxine 25 mcg capsule 25 mcg PO DAILY Qty: 30 0RF (DME) insulin syr/ndl U100 half ángel 0.3 mL 30 gauge x 1/2 syringe See Rx Instructions .Route Qty: 100 0RF Rx Instructions: As directed aspirin [Adult Low Dose Aspirin] 81 mg tablet,delayed release (DR/EC) 81 mg PO DAILY 30 Days Qty: 30 0RF pantoprazole [address] for susp in packet 40 mg PO BID insulin glargine-yfgn 100 unit/mL (3 mL) Insulin Pen 35 unit subcut BIDCM Qty: 0 0RF insulin lispro [Humalog KwikPen Insulin] 100 unit/mL insulin pen 35 unit subcut TID Qty: 15 0RF warfarin 10 mg tablet 10 mg PO DAILY Qty: 30 0RF hydrocodone-acetaminophen 5-325 mg tablet 1 tab PO BID (DME) blood-glucose meter [OneTouch Verio Flex meter] Misc See Rx Instructions .Route Qty: 1 0RF Rx Instructions: As directed (DME) OneTouch Verio test strips Strip See Rx Instructions .Route Qty: 100 5RF Rx Instructions: TID (DME) lancets [Onetouch Delica Safety Lancet] 30 gauge misc See Rx Instructions .Route Qty: 200 5RF Rx Instructions: TID pregabalin [Lyrica] 300 mg capsule 300 mg PO BID 30 Days Qty: 60 0RF Referrals / Follow Up: Autumn Whitt MD [Primary Care Provider] - See Referral Note (Follow-up with her office this week and get your INR repeated, it was low while you were hospitalized) Ivanna Buitrago NP-C [Med Staff - Adv Practice Prof] - Disposition Disposition (needs filled in before D/C Order can be placed): Home, Self Care Charges/Coding Visit Charges Inpatient E&M: 99184 Disch Hosp >30min
[2023-08-28 09:58] VITALS: PULSE 96
[2023-08-28] MEDS: Venlafaxine XR 37.5 MG Capsule PO (09:58)
[2023-08-28] MEDS: Losartan Potassium 25 MG Tablet PO (09:58)
[2023-08-28] MEDS: Metoprolol(XL)Succ 100 MG Tablet PO (09:58)
[2023-08-28] MEDS: Pantoprazole Sodium 40 MG Tablet PO (09:59)
[2023-08-28] MEDS: Aspirin E.C. 81 MG Tablet PO (09:59)
[2023-08-28] MEDS: Insulin Glargine-YFGN 100 UNIT/ML Pen 30 UNIT SC (10:00)
[2023-08-28] MEDS: Atorvastatin Calcium 40 MG Tablet PO (10:01)
[2023-08-28] MEDS: Cilostazol 50 MG Tablet PO (10:01)
[2023-08-28] MEDS: HYDROcodone Bitartrate/Apap 5/325 Tablet PO (10:05)
[2023-08-28] MEDS: Pregabalin 75 MG Capsule 300 MG PO (10:05)
[2023-08-28 12:07] LABS: Bedside Glucose 259 mg/dL (74-106)
== END 2023-08-28 10:40 | disposition home or self-care (01) | DRG 420 ==
LOC: ED 12:37 → ICU 15:06
PROVIDERS: Internal Medicine; Admitting Provider Internal Medicine; Emergency Provider Emergency Medicine; PCP Internal Medicine; Visit Provider Internal Medicine
DX: E10.10 Type 1 diabetes mellitus with ketoacidosis without coma (principal); E10.51 Type 1 diabetes mellitus with diabetic peripheral angiopathy without gangrene; F31.9 Bipolar disorder, unspecified; Z79.4 Long term (current) use of insulin; I10 Essential (primary) hypertension; E03.9 Hypothyroidism, unspecified; E78.5 Hyperlipidemia, unspecified; K52.9 Noninfective gastroenteritis and colitis, unspecified; Z87.891 Personal history of nicotine dependence; Z79.82 Long term (current) use of aspirin; Z79.01 Long term (current) use of anticoagulants; Z79.899 Other long term (current) drug therapy; Z86.718 Personal history of other venous thrombosis and embolism
CPT/HCPCS: 71045; 74177; 80048; 80076; 80307; 81001; 82009; 82803; 82947; 82962; 83690; 83735; 84100; 84484; 84703; 85025; 85610; 93005; 97802; 99285; J7030; Q9967; A4216; J2405

== ENCOUNTER → 2023-08-29 | Outpatient (CLI) | payer MEDICAID, SELFPAY ==
--- NOTE | 2023-08-29 14:36 | ART_ITS ---
Reason For Study: PVD Procedure A bilateral lower extremity continuous wave Doppler with analog waveform analysis,segmental pressures,and ankle brachial indexes without exercise. Left Segmental Pressures Left brachial= 149mmHg. Left thigh = 96mmHg. The left thigh waveforms are biphasic. Right Segmental Pressures Right brachial= 147mmHg. Right posterior tibial artery = 187mmHg. Right dorsalis pedis artery = 108mmHg. Right digit = 59 mmHg. The right dorsalis pedis waveforms are monophasic. The right posterior tibial artery waveforms are monophasic. Indices The right ankle brachial index by the dorsalis pedis is 0.72. The right ankle brachial index by the posterior tibial artery is 1.26. The right digital-brachial index is 0.40. The left thigh-brachial index by the popliteal artery is 0.64. VL/Lower Ext Art Exam w/o Exercis Interpretation Summary Right CRISTOFER 1.26, likely artificially elevated. Doppler/PVR waveforms of the righ t leg moderately diminished distal SFA/popliteal. Prior left below knee amputation. Doppler/PVR waveforms of the left leg moderat arminda diminished at rest. Ordering Physician: Francheska Malone Referring Physician: Autumn Whitt Performed By: Kamilla La RVT
== END | disposition home or self-care (01) ==
LOC: CVS 14:33
PROVIDERS: PCP Internal Medicine; Referring Provider Physician Assistant; Visit Provider Physician Assistant
DX: I73.9 Peripheral vascular disease, unspecified (principal); Z89.512 Acquired absence of left leg below knee; Z98.62 Peripheral vascular angioplasty status
CPT/HCPCS: 93923

== ENCOUNTER → 2023-08-30 | Outpatient (CLI) | payer MEDICAID, SELFPAY ==
[2023-08-30 17:42] LABS: Amphetamine Urine VISTA NEGATIVE (<1000 ng/mL); Barbiturate Urine VISTA NEGATIVE (< 200 ng/mL); Benzodiazepine Urine VISTA NEGATIVE (< 200 ng/mL); Cocaine Urine VISTA NEGATIVE (< 300 ng/mL); Ecstacy Urine VISTA NEGATIVE (< 500 ng/mL); Methadone Urine VISTA NEGATIVE (< 300 ng/mL); PCP Urine VISTA NEGATIVE (< 25 ng/mL); THC Urine VISTA NEGATIVE (< 50 ng/mL); Vista UDS pH Range 6
== END | disposition home or self-care (01) ==
LOC: LAB 17:17
PROVIDERS: PCP Internal Medicine; Referring Provider Anesthesiology Pain Medicine; Visit Provider Anesthesiology Pain Medicine
DX: F11.20 Opioid dependence, uncomplicated (principal)
CPT/HCPCS: 80307

== ENCOUNTER → 2023-09-06 | Outpatient (CLI) | payer MEDICAID, SELFPAY ==
[2023-09-06 12:43] LABS: Absolute Lymphocyte Count 1.82 X10^3/uL (0.83-4.51); Absolute Neutrophil Count 5.5 X10^3/uL (2.0-7.7); Basophil# 0.05 X10^3/uL; Basophil% 0.6 % (0-1); Eosinophil# 0.03 X10^3/uL; Eosinophils% 0.4 % (0-5); Hemoglobin 15.3 g/dL (12.0-15.0); Lymphocyte # 1.82 X10^3/ul (0.83-4.51); Lymphocyte % 22.5 % (19-41); Mean Corp Hgb Conc 34.8 g/dL (32-36); Mean Corpuscular Hgb 27.7 pg (27.0-32.0); Mean Corpuscular Volume 79.6 fL (81-99); Mean Platelet Vol. 11.8 fl (6.2-12.0); Monocyte% 7.4 % (0-10); NRBC Flagged by Analyzer 0 % (0-5); Neutrophil # 5.52 X10^3/uL (2.7-7.7); Neutrophil % 68.4 % (47-70); Platelet Count 316 K/mm3 (150-450); RBC Distribution Width SD 38.4 fl (35.1-43.9); Red Blood Count 5.53 M/mm3 (4.2-5.4); White Blood Count 8.1 K/mm3 (4.4-11.0)
[2023-09-06 12:45] LABS: International Normalized Ratio 0.9; Prothrombin Time (Protime)PT. 12.3 SECONDS (11.7-14.9)
[2023-09-06 13:42] LABS: ALB/GLOB Ratio 0.9 RATIO (0.9-2.4); AST(SGOT) 9 U/L (15-37); Alanine Aminotransfer ALT/SGPT 20 U/L (13-56); Albumin, Serum 3.7 g/dL (3.2-5.0); Alkaline Phosphatase 84 U/L (45-117); Anion Gap 12 (5-15); BUN 21 mg/dL (7-18); BUN/Creat Ratio 29.3 RATIO (10-20); Calcium,Total 9.6 mg/dL (8.5-10.1); Chloride 96 mmol/L (98-107); Cholesterol 269 mg/dL (200); Creatinine, Serum 0.72 mg/dL (0.55-1.02); EST Glomerular Filtration Rate 97 mL/min (>60); Est Glom Filt Rate - Afr Amer 118 mL/min (>60); Globulin 4.3 g/dL (2.2-4.2); Glucose 436 mg/dL (74-106); High Density Lipoprotein 34 mg/dL; Potassium 4.5 mmol/L (3.5-5.1); Sodium Level 129 mmol/L (136-145); Triglycerides 1506 mg/dL
[2023-09-06 15:53] LABS: Thyroid Stim Hormone (TSH) 9.06 uIU/mL (0.358-3.74)
[2023-09-08 18:49] LABS: Microalbumin:Creatinine Ratio 880.1 mg/g CRE (<30 mg/g CRE)
== END | disposition home or self-care (01) ==
LOC: BIMLAB 10:47
PROVIDERS: Nurse Practitioner; PCP Internal Medicine; Referring Provider Internal Medicine; Visit Provider Internal Medicine
DX: E78.2 Mixed hyperlipidemia (principal); E10.29 Type 1 diabetes mellitus with other diabetic kidney complication; I73.9 Peripheral vascular disease, unspecified; E03.9 Hypothyroidism, unspecified; R80.9 Proteinuria, unspecified; F41.9 Anxiety disorder, unspecified; F32.A Depression, unspecified
CPT/HCPCS: 36415; 80053; 80061; 82043; 82570; 84443; 85025; 85610

== ENCOUNTER → 2023-10-06 | Outpatient (CLI) | payer MEDICAID, SELFPAY ==
--- NOTE | 2023-10-06 13:32 | CT_ITS ---
CT angiogram of the abdominal aorta with bilateral lower extremity runoff with 3-dimensional reconstructions, with MIP reconstructions Clinical history: PAD with hx of revascularization, claudication Technique: Multiple helical CT images were obtained from the domes the diaphragms to level of feet after intravenous administration of iodinated contrast with transaxial, coronal and sagittal multiplanar reconstructions. On a separate workstation, 3-dimensional reconstructions were obtained of the arterial vasculature using volume rendering technique and maximal intensity projection technique as per departmental protocol. The protocol utilizes one or more of the following dose reduction techniques: automated exposure control, adjustment of mA and/or kV according to patient size,and/or use of iterative reconstruction technique. RADIATION DOSAGE (If Supplied By Facility): CTDIvol = ( 6.05 ) mGy, DLP = ( 1214.79 ) mGycm COMPARISON: No relevant prior comparison study available FINDINGS: ABDOMEN / PELVIS: The visualized portions of the liver are unremarkable. The visualized portions of the spleen and pancreas appear to be within normal limits. Status post cholecystectomy. Slightly prominent common bile duct. The kidneys are unremarkable. The visualized bowel is unremarkable. No pelvic mass. Metallic clip could be due to previous tubal ligation.. VASCULAR STRUCTURES: There appears to be good opacification and patency of the visualized abdominal aorta. Mild atherosclerotic calcifications. There appears to be good opacification and patency of the celiac trunk, superior mesenteric artery. There appears to be good opacification and patency noted of the RIGHT and LEFT renal arteries. There appears to be good opacification and patency noted of the inferior mesenteric artery. ARTERIAL STRUCTURES OF THE RIGHT LOWER EXTREMITY: Common iliac artery: Mild atherosclerotic calcifications without significant stenosis. External iliac artery: Appears patent with good opacification. No significant stenosis. Internal iliac arteries: Diffusely narrowed and poorly visualized. Common femoral artery: Appears patent with good opacification. Superficial femoral arteries: Occluded in its mid aspect reconstituted at the adductor''s canal. Popliteal artery: Appears patent with good opacification. Anterior tibial artery: Appears patent with good opacification. However atherosclerotic calcifications in the trifurcation region. Posterior tibial artery: Appears patent with good opacification. Peroneal artery: Appears patent with opacification. ARTERIAL STRUCTURES OF THE LEFT LOWER EXTREMITY: Common iliac artery: Atherosclerotic calcifications without significant stenosis. External iliac artery: Appears patent with good opacification. Internal iliac arteries: Mild diffuse narrowing. Common femoral artery: Small in caliber but patent. Superficial femoral arteries: Patent proximally. Occluded distally. Popliteal artery: Not visualized. Status post below-knee amputation. CT/CTA Abd w/Runoff W/WO Contrast IMPRESSION: 1. Occluded mid right SFA reconstituted the adductus canal. 2. Three-vessel runoff to the right lower leg. 3. Included mid left SFA. Status post below left knee amputation. Electronically Signed: Guy Romero MD at 15:36 EDT ,
== END | disposition home or self-care (01) ==
PROVIDERS: PCP Internal Medicine; Referring Provider Physician Assistant; Visit Provider Physician Assistant
DX: I73.9 Peripheral vascular disease, unspecified (principal); Z98.890 Other specified postprocedural states
CPT/HCPCS: 75635; Q9967

== ENCOUNTER → 2023-10-23 | Outpatient (CLI) | payer MEDICAID, SELFPAY ==
[2023-10-23 16:08] LABS: Amphetamine Urine VISTA NEGATIVE (<1000 ng/mL); Barbiturate Urine VISTA NEGATIVE (< 200 ng/mL); Benzodiazepine Urine VISTA NEGATIVE (< 200 ng/mL); Cocaine Urine VISTA NEGATIVE (< 300 ng/mL); Ecstacy Urine VISTA NEGATIVE (< 500 ng/mL); Methadone Urine VISTA NEGATIVE (< 300 ng/mL); PCP Urine VISTA NEGATIVE (< 25 ng/mL); THC Urine VISTA NEGATIVE (< 50 ng/mL); Vista UDS pH Range 5
== END | disposition home or self-care (01) ==
PROVIDERS: PCP Internal Medicine; Referring Provider Anesthesiology Pain Medicine; Visit Provider Anesthesiology Pain Medicine
DX: F11.20 Opioid dependence, uncomplicated (principal)
CPT/HCPCS: 80307

== ENCOUNTER 2023-11-02 10:02 | Emergency (ER) | payer MEDICAID, SELFPAY ==
[2023-11-02 10:03] VITALS: BP 172/104; PULSE 119; RESP 16; TEMP 36.3; O2SAT 99; BMI 27.4
--- NOTE | 2023-11-02 10:20 | EKG12_ITS ---
Test Reason : DYSRHYTHMIA Blood Pressure : / mmHG Vent. Rate : 109 BPM Atrial Rate : 109 BPM P-R Int : 122 ms QRS Dur : 082 ms QT Int : 340 ms P-R-T Axes : 044 064 059 degrees QTc Int : 457 ms Sinus tachycardia Otherwise normal ECG Confirmed by JENNIFER HANNON, AUTUMN ([id number]), photography editor ОЛЬГА MEJIA ([id number]) on 11/03/2023 9:28:19 AM Referred By: TB Confirmed By:AUTUMN RODRIGUEZ MD
--- NOTE | 2023-11-02 10:20 | CT_ITS ---
STUDY: CT ABDOMEN AND PELVIS WITH CONTRAST REASON FOR EXAM: Female, 38 years old. Right-sided abdominal pain and epigastric pain with nausea. RADIATION DOSAGE (If Supplied By Facility): CTDIvol = ( 15.47 ) mGy, DLP = ( 1150.22 ) mGycm TECHNIQUE: Transaxial images were obtained from the dome of the diaphragm to the symphysis pubis without oral contrast. 100CC ISOVUE 300 was administered. Sagittal and coronal images were reconstructed. Individualized dose optimization techniques were used for this CT. COMPARISON: Comparison is made with prior study dated August 26, 2023. FINDINGS: The visualized lung bases are unremarkable. The visualized portions of the heart are within normal limits. There is decreased attenuation of the liver consistent with steatosis. Mild hepatomegaly. There are surgical clips in the gallbladder fossa consistent with a prior cholecystectomy. There is mild splenomegaly. Normal pancreas. Stable 2.9 cm hypodense nodule in the left adrenal gland suggestive of adrenal adenoma. Normal right kidney. Normal left kidney. There is a small hiatal hernia. Normal small intestine. Moderate amount of fecal material is seen in the colon. The appendix is visualized and appears normal. Atherosclerotic calcification of the abdominal aorta with narrowing in its distal portion. Calcific plaques at the origin of both common iliac arteries. Normal inferior vena cava. Normal retroperitoneum. Normal urinary bladder. Normal abdominal wall. There are mild degenerative changes of the visualized lumbar spine. Loss of the normal lumbar lordosis. CT/Abdomen/Pelvis W IV Cont ONLY IMPRESSION: Hepatosplenomegaly. Prior cholecystectomy. Stable left adrenal hypodense nodule suggestive of adenoma. Electronically Signed: Moo Driver MD at 12:11 EDT ,
[2023-11-02] MEDS: Ondansetron 4 MG/2 ML Vial IV (10:28)
[2023-11-02] MEDS: 0.9% Normal Saline (1000mL) 1,000 ML 999 ML IV ×2 (10:28→13:08)
[2023-11-02] MEDS: Ketorolac 30 MG/ML Syringe IV (10:29)
[2023-11-02 10:32] LABS: Absolute Neutrophil Count 2.4 X10^3/uL (2.0-7.7); Basophil# 0.04 X10^3/uL; Basophil% 0.9 % (0-1); Eosinophil# 0.07 X10^3/uL; Eosinophils% 1.6 % (0-5); Hematocrit 44.1 % (37-47); Lymphocyte % 32.7 % (19-41); Mean Corpuscular Hgb 27.3 pg (27.0-32.0); Mean Corpuscular Volume 80.2 fL (81-99); Mean Platelet Vol. 10.6 fl (6.2-12.0); Monocyte# 0.34 X10^3/uL; Monocyte% 7.9 % (0-10); NRBC Flagged by Analyzer 0 % (0-5); Neutrophil # 2.42 X10^3/uL (2.7-7.7); Neutrophil % 56.7 % (47-70); Platelet Count 299 K/mm3 (150-450); RBC Distribution Width CV 12.8 % (11.6-14.6); RBC Distribution Width SD 36.3 fl (35.1-43.9); White Blood Count 4.3 K/mm3 (4.4-11.0)
[2023-11-02 10:48] LABS: Mucous, Urine 0 SEEN /hpf (<or=2+); Red Blood Cells-Urine 0 SEEN /hpf (0-5); White Blood Cells 0 SEEN /hpf (0-5)
[2023-11-02 10:51] LABS: ALB/GLOB Ratio 0.8 RATIO (0.9-2.4); AST(SGOT) 23 U/L (15-37); Alanine Aminotransfer ALT/SGPT 33 U/L (13-56); Albumin, Serum 3.5 g/dL (3.2-5.0); Alkaline Phosphatase 54 U/L (45-117); Anion Gap 6 (5-15); BUN 17 mg/dL (7-18); BUN/Creat Ratio 19.7 RATIO (10-20); Calcium,Total 9.1 mg/dL (8.5-10.1); Chloride 109 mmol/L (98-107); Creatinine, Serum 0.86 mg/dL (0.55-1.02); EST Glomerular Filtration Rate 78 mL/min (>60); Est Glom Filt Rate - Afr Amer 95 mL/min (>60); Estimated Creatinine Clearance 93.92 ml/min; Globulin 4.3 g/dL (2.2-4.2); Glucose 165 mg/dL (74-106); Lipase 13 U/L (13-75); Potassium 4.1 mmol/L (3.5-5.1); Protein, Total 7.8 g/dL (6.4-8.2); Sodium Level 139 mmol/L (136-145); Troponin-I HS 4 pg/mL (3.0-54.0)
[2023-11-02 10:53] LABS: Color, Urine Yellow (Yellow); Glucose, Dipstick Normal (Normal); Ketone-Dipstick Negative (Negative); Leukocyte Esterase-Dipstick Negative /ul (Negative); Nitrite-Dipstick Negative (Negative); Occult Blood-Urine Negative /ul (Negative); Protein-Dipstick 100 mg/dl (Negative); Urine Bilirubin Dipstick Negative (Negative); Urine Clarity Clear (Clear); Urine Urobilinogen Normal (Normal)
[2023-11-02 11:15] LABS: Bacteria 1+ /hpf (None Seen)
[2023-11-02 11:17] LABS: Squamous Epithelial Cells - UA 5-10 SEEN /hpf (5-10)
[2023-11-02 11:18] LABS: Internal QC Validated? YES +Cl - CLEAR BKGD; Pregnancy, Urine Negative Negative
--- NOTE | 2023-11-02 11:30 | RAD_ITS ---
STUDY: X-RAY CHEST REASON FOR EXAM: Female, 38 years old. Right abdominal pain and chest pain with nausea. TECHNIQUE: Single AP portable view of the chest. COMPARISON: Comparison is made with prior study August 26, 2023. FINDINGS: Insulin pump is seen overlying the lower chest. The lungs are clear and expanded. There is no demonstrated pleural abnormality. Normal size heart. Normal mediastinum and enrike. Normal visualized pulmonary arteries. Normal visualized aortic arch and descending thoracic aorta. Normal visualized thoracic spine. Normal visualized ribs, clavicles, and shoulders. There is no demonstrated abnormality of the visualized soft tissue structures of the upper abdomen. RAD/Chest 1 View (Portable) IMPRESSION: Normal x-ray examination of the chest. Electronically Signed: Moo Driver MD at 11:57 EDT ,
--- NOTE | 2023-11-02 11:36 | ED.VIS.GI ---
HPI HPI - GI History of Present Illness Chief Complaint: Abd Pain Narrative Narrative: Patient is a 38-year-old female with a past medical history of type 1 diabetes on insulin, hypertension, depression, hypothyroidism, hyperlipidemia who presented to the emergency department with a chief complaint of abdominal pain. Patient states that she had abdominal pain on and off now for a while however has been progressively worsening. She states that her pain is a 5 out of 10. She states that it is on the right side of her abdomen and does radiate to her chest. Patient denies any history of blood clots denies any recent travel history denies any shortness of breath. Patient states that she has had her gallbladder taken out. [facility] Medical History Abdominal pain Nausea, vomiting, and diarrhea DKA (diabetic ketoacidosis) Anemia Bipolar disorder Anxiety Depression GERD (gastroesophageal reflux disease) Former smoker Migraines Headache DVT (deep venous thrombosis) Chronic anticoagulation Type 1 diabetes mellitus Abnormal angiogram HTN (hypertension) Hyperlipidemia Home Medications ?Medication ?Instructions ?Recorded ?Last Taken ?Type aspirin 81 mg tablet,delayed 81 mg PO DAILY 30 days #30 tabs 03/14/23 Unknown Rx release (Adult Low Dose Aspirin) insulin syr/ndl U100 half ángel 0.3 #100 ea 03/14/23 Unknown Rx mL 30 gauge x 1/2 atorvastatin 40 mg tablet 40 mg PO DAILY 30 days #30 tabs 07/13/23 Unknown Rx metoprolol succinate 100 mg 100 mg PO DAILY 30 days #30 tabs 07/13/23 Unknown Rx tablet,extended release 24 hr (Toprol XL) pen needle, diabetic 32 gauge x #1,200 ea 07/13/23 Unknown Rx /32 (BD Ultra-Fine Elyssa Pen Needle) blood sugar diagnostic (OneTouch #100 ea 07/17/23 Unknown Rx Verio test strips) blood-glucose meter (OneTouch #1 ea 07/17/23 Unknown Rx Verio Flex Meter) lancets 30 gauge (Onetouch Delica #200 ea 07/17/23 Unknown Rx Safety Lancet) amitriptyline 25 mg tablet 25 mg PO QHS 09/06/23 Unknown History desvenlafaxine succinate 25 mg 25 mg PO DAILY #30 tabs 09/06/23 Unknown Rx tablet,extended release 24 hr (Pristiq) fenofibrate nanocrystallized 145 145 mg PO DAILY #30 tabs 09/06/23 Unknown Rx mg tablet pantoprazole 40 mg tablet,delayed 40 mg PO BID #60 tabs 09/07/23 Unknown Rx release (Protonix) levothyroxine 112 mcg capsule 112 mcg PO DAILY #30 caps 09/13/23 Unknown Rx Guardian 4 Glucose Sensor #10 ea 09/18/23 Unknown Rx (blood-glucose sensor) insulin lispro 100 unit/mL 250 unit (2.5 mL) continuous 09/27/23 Unknown Rx subcutaneous solution (Humalog subcutaneous infusion .continuous U-100 Insulin) #75 mL cilostazol 50 mg tablet 50 mg PO BID #60 tabs 10/20/23 Unknown Rx warfarin 10 mg tablet 15 mg (1.5 x 10 mg) PO DAILY #45 10/22/23 Unknown Rx tabs losartan 50 mg tablet 50 mg PO DAILY #90 tabs 10/24/23 Unknown Rx Allergy/AdvReac Type Severity Reaction Status Date / Time morphine Allergy Intermediate Rash Verified 11/02/23 10:03 orange Allergy Rash Verified 11/02/23 10:03 Family History Father Hypertension Cancer lung Diabetes Mother Diabetes Hypertension Cancer bladder Dementia Surgical History H/O section History of revascularization procedure of lower extremity Hx of cholecystectomy History of intravascular stent placement Tubal ligation status History of below-knee amputation of left lower extremity S/P BKA (below knee amputation) unilateral Social History household members: spouse and children housing: house current occupational status: disabled current occupation: for [employer] Smoking Status: Former smoker quit date: 04/03/19 pack-years: 20 Electronic Cigarette Use: not used alcohol intake: never substance use type: does not use what type of physical activity do you participate in: none seatbelt use: always do you feel safe at home: Yes ROS ROS ED ROS Narrative Constitutional: Denies any fevers, chills, headaches, lightheadedness, dizziness Eyes: Denies any change in vision double vision blurry vision Cardiovascular: Complains of some chest discomfort radiating from her abdominal pain denies any palpitations Respiratory: Denies coughing wheezing shortness of breath Abdomen: Complains of abdominal pain as noted above as well as nausea denies vomiting or diarrhea : Denies any painful urination, hematuria, polyuria Neurological: Denies any numbness weakness, tingling Musculoskeletal: Denies back pain Skin: Denies rashes or lesions EXAM Physical Exam Narrative Exam Narrative: General: Patient lying in bed resting comfortably did not appear to be in acute distress Head: Atraumatic, normocephalic Eyes: PERRL bilaterally, EOMI bilaterally, no conjunctival injection noted Neck: Soft, supple, trach midline Cardiovascular: Patient was tachycardic with a regular rhythm no murmurs gallops rubs noted Respiratory: Clear to auscultation bilaterally no rales rhonchi wheeze noted Abdomen: Soft, nondistended, tenderness palpation the right upper quadrant no rebound or guarding on exam, bowel sounds present x 4 Extremities: +5/5 strength noted in the bilateral upper and lower extremities, no pedal edema on exam Neurological: Patient following commands knew that she was at [facility] year is 2023 Skin: Warm, dry, intact Const Vital Signs: 11/02/23 10:03 11/02/23 12:03 11/02/23 14:00 Temperature 97.4 F L Temperature Source Temporal Pulse Rate 119 H 105 H 101 H Respiratory Rate 16 16 16 Blood Pressure 172/104 H 168/93 H 146/83 H Blood Pressure Mean 126 118 104 Pulse Ox 99 99 98 Oxygen Delivery Method Room Air Room Air Room Air MDM MDM MDM Narrative Medical decision making narrative: Patient is a 38-year-old female who presented to the emergency department chief complaint of abdominal pain. Patient will have a workup performed here on the differential diagnosis includes but not limited to pancreatitis, small bowel obstruction, viral gastroenteritis, UTI, pyelonephritis. Once workup is obtained reviewed she will be reevaluated. Patient be given IV fluids, Zofran and Toradol. Patient CBC reviewed and showed a white blood count of 4.3, hemoglobin stable 15, platelet count was noted to be normal at 299. Patient's sodium normal 139, potassium normal 4.1, creatinine normal at 0.86. Patient's AST and ALT were 2030 and 33 respectively, troponin normal at 4. Patient's EKG reviewed as well and showed sinus tachycardia with a rate of 109 bpm. Patient's lipase normal at 13, urinalysis did not reveal any evidence of infection. Patient's test was negative. Patient's CT abdomen pelvis with IV contrast was reviewed and showed hepatosplenomegaly. Prior cholecystectomy and stable left adrenal hypodense nodule suggestive of adenoma. Patient's chest x-ray reviewed and showed normal x-ray examination of the chest. Patient was complaining of pain she was given a single dose of Dilaudid and Zofran. Patient Ralls score was noted to show a moderate risk therefore D-dimer was added on which was noted to be elevated therefore CT angiography of the chest was ordered which showed normal examination no evidence of PE or arterial dissection. On reevaluation the patient and she would like to go home. Patient is feeling better. She was encouraged to follow-up with her primary care physician outpatient setting. She was encouraged return with worsening symptoms or concerns. All question concerns answered she was discharged home in stable condition Lab Data Labs: Laboratory Results - last 24 hr 11/02/23 11/02/23 11/02/23 10:20 10:40 13:13 WBC 4.3 L RBC 5.50 H Hgb 15.0 Hct 44.1 MCV 80.2 L MCH 27.3 MCHC 34.0 RDW Std Deviation 36.3 RDW Coeff of Gerard 12.8 Plt Count 299 MPV 10.6 Immature Gran % (Auto) 0.200 Neut % (Auto) 56.7 Lymph % (Auto) 32.7 [place] % (Auto) 7.9 Eos % (Auto) 1.6 Baso % (Auto) 0.9 Absolute Neuts (auto) 2.4 Absolute Lymphs (auto) 1.40 Nucleated RBC % 0 D-Dimer Quant (PE/DVT) 0.60 H* Sodium 139 Potassium 4.1 Chloride 109 H Carbon Dioxide 24.0 Anion Gap 6 BUN 17 Creatinine 0.86 Estim Creat Clear Calc 93.92 Est GFR (MDRD) Af Amer 95 Est GFR (MDRD) Non-Af 78 BUN/Creatinine Ratio 19.7 Glucose 165 H Calcium 9.1 Total Bilirubin 0.40 AST 23 ALT 33 Alkaline Phosphatase 54 Troponin I High Sens 4 Total Protein 7.8 Albumin 3.5 Globulin 4.3 H Albumin/Globulin Ratio 0.8 L Lipase 13 Urine Color Yellow Urine Clarity Clear Urine pH 8.0 Ur Specific [place] 1.010 Urine Protein 100 H Urine Glucose (UA) Normal Urine Ketones Negative Urine Occult Blood Negative Urine Nitrite Negative Urine Bilirubin Negative Urine Urobilinogen Normal Ur Leukocyte Esterase Negative Urine RBC 0 SEEN Urine WBC 0 SEEN Ur Squamous Epith Cells 5-10 SEEN Urine Bacteria 1+ Urine Mucus 0 SEEN Urine Test Negative Radiography Diagnostic Testing: Clinical Impression(s) from Imaging Studies Abdomen/Pelvis CT 11/02/23 10:20 IMPRESSION: Hepatosplenomegaly. Prior cholecystectomy. Stable left adrenal hypodense nodule suggestive of adenoma. Electronically Signed: Moo Driver MD at 12:11 EDT , Chest X-Ray 11/02/23 11:30 IMPRESSION: Normal x-ray examination of the chest. Electronically Signed: Moo Driver MD at 11:57 EDT , Chest CTA 11/02/23 13:59 IMPRESSION: Normal CTA chest examination, without a demonstrated pulmonary embolism or arterial dissection. Electronically Signed: Moo Driver MD at 14:29 EDT , Discharge Plan Triage Chief Complaint: Abd Pain ED Provider: Savage Milton Dx/Rx/DC Orders Clinical Impression: Abdominal pain, Chest pain Prescriptions: No Action atorvastatin 40 mg tablet 40 mg PO DAILY 30 Days Qty: 30 2RF metoprolol succinate [Toprol XL] 100 mg tablet extended release 24 hr 100 mg PO DAILY 30 Days Qty: 30 2RF (DME) pen needle, diabetic [BD Ultra-Fine Elyssa Pen Needle] 32 gauge x 5/32 needle See Rx Instructions .Route Qty: 1200 1RF Rx Instructions: QID desvenlafaxine succinate [Pristiq] 25 mg tablet extended release 24 hr 25 mg PO DAILY Qty: 30 1RF amitriptyline 25 mg tablet 25 mg PO QHS warfarin 10 mg tablet 15 mg PO DAILY Qty: 45 0RF losartan 50 mg tablet 50 mg PO DAILY Qty: 90 1RF (DME) insulin syr/ndl U100 half ángel 0.3 mL 30 gauge x 1/2 syringe See Rx Instructions .Route Qty: 100 0RF Rx Instructions: As directed aspirin [Adult Low Dose Aspirin] 81 mg tablet,delayed release (DR/EC) 81 mg PO DAILY 30 Days Qty: 30 0RF (DME) blood-glucose meter [OneTouch Verio Flex meter] Misc See Rx Instructions .Route Qty: 1 0RF Rx Instructions: As directed (DME) OneTouch Verio test strips Strip See Rx Instructions .Route Qty: 100 5RF Rx Instructions: TID (DME) lancets [Onetouch Delica Safety Lancet] 30 gauge misc See Rx Instructions .Route Qty: 200 5RF Rx Instructions: TID fenofibrate nanocrystallized 145 mg tablet 145 mg PO DAILY Qty: 30 1RF pantoprazole [Protonix] 40 mg tablet,delayed release (DR/EC) 40 mg PO BID Qty: 60 1RF levothyroxine 112 mcg capsule 112 mcg PO DAILY Qty: 30 1RF (DME) Guardian 4 Glucose Sensor Device See Rx Instructions .Route Qty: 10 3RF Rx Instructions: As directed insulin lispro [Humalog U-100 Insulin] 100 unit/mL solution 250 unit continuous subcutaneous infusion .continuous Qty: 75 3RF cilostazol 50 mg tablet 50 mg PO BID Qty: 60 2RF Primary Care Provider: Autumn Whitt Referrals: Autumn Whitt MD [Primary Care Provider] - Activity Restrictions/Additional Instructions: Follow-up with your primary care physician in the outpatient setting. Return with worsening symptoms or any other concerns. Print Language: Cuban Disposition Disposition: Home, Self Care
[2023-11-02 12:03] VITALS: BP 168/93; PULSE 105; RESP 16; O2SAT 99
[2023-11-02] MEDS: HYDROmorphone 0.5 MG/0.5 ML SYRINGE IV (13:08)
--- NOTE | 2023-11-02 13:59 | CT_ITS ---
STUDY: CTA CHEST REASON FOR EXAM: Female, 38 years old. Right rib pain, elevated dimer RADIATION DOSAGE (If Supplied By Facility): CTDIvol = ( 12.57 ) mGy, DLP = ( 497.56 ) mGycm TECHNIQUE: The examination was performed with the intravenous administration of IV 75mL [id number]-370. Post-processing of the angiographic images was performed, with multiplanar reformation and 3D reconstruction. Individualized dose optimization techniques were used for this CT. COMPARISON: None. FINDINGS: There are small bilateral axillary lymph nodes. Normal enhancement of the main pulmonary artery and right and left pulmonary arteries. Normal enhancement of the bilateral peripheral pulmonary arteries. There is no demonstrated pulmonary embolism. Normal thoracic aorta and visualized great vessels. There is no demonstrated aortic dissection. Normal heart and pericardium. Normal mediastinum. Normal hilar regions. Normal visualized trachea and bronchi. The lungs are well expanded. Normal pulmonary parenchyma. Normal pleura. Normal chest wall structures. Normal osseous structures. Small hiatal hernia. CT/CTA Chest W/WO Contrast IMPRESSION: Normal CTA chest examination, without a demonstrated pulmonary embolism or arterial dissection. Electronically Signed: Moo Driver MD at 14:29 EDT ,
[2023-11-02 14:00] VITALS: BP 146/83; PULSE 101; RESP 16; O2SAT 98
[2023-11-02 15:26] VITALS: BP 165/78; PULSE 90; RESP 18; TEMP 36.4; O2SAT 100
== END 2023-11-02 15:27 | disposition home or self-care (01) ==
PROVIDERS: Emergency Provider Emergency Medicine; PCP Internal Medicine; Visit Provider Emergency Medicine
DX: R07.9 Chest pain, unspecified (principal); Z89.512 Acquired absence of left leg below knee; E10.9 Type 1 diabetes mellitus without complications; Z79.4 Long term (current) use of insulin; R16.2 Hepatomegaly with splenomegaly, not elsewhere classified; Z87.891 Personal history of nicotine dependence; E78.5 Hyperlipidemia, unspecified; I10 Essential (primary) hypertension; R10.9 Unspecified abdominal pain; Z98.51 Tubal ligation status; Z90.49 Acquired absence of other specified parts of digestive tract; Z86.718 Personal history of other venous thrombosis and embolism; K21.9 Gastro-esophageal reflux disease without esophagitis; F32.9 Major depressive disorder, single episode, unspecified; E03.9 Hypothyroidism, unspecified
CPT/HCPCS: 71045; 71275; 74177; 80053; 81001; 81025; 83690; 84484; 85025; 85379; 87086; 93005; 96361; 96374; 96375; 99282; J7030; Q9967; A4216; J2405

== ENCOUNTER 2024-01-11 10:59 | Outpatient (RCR) | payer MEDICAID, SELFPAY ==
[2024-01-11 13:01] LABS: International Normalized Ratio 1.4; Prothrombin Time (Protime)PT. 17.5 SECONDS (11.7-14.9)
[2024-01-11 13:06] LABS: T4 Free Direct 1.03 ng/dL (0.76-1.46)
[2024-01-11 13:29] LABS: ALB/GLOB Ratio 0.9 RATIO (0.9-2.4); AST(SGOT) 17 U/L (15-37); Alanine Aminotransfer ALT/SGPT 28 U/L (13-56); Albumin, Serum 3.6 g/dL (3.2-5.0); Alkaline Phosphatase 76 U/L (45-117); Anion Gap 6 (5-15); BUN 13 mg/dL (7-18); BUN/Creat Ratio 17.9 RATIO (10-20); Calcium,Total 9.9 mg/dL (8.5-10.1); Chloride 104 mmol/L (98-107); Cholesterol 179 mg/dL (200); Creatinine, Serum 0.72 mg/dL (0.55-1.02); EST Glomerular Filtration Rate 96 mL/min (>60); Est Glom Filt Rate - Afr Amer 116 mL/min (>60); Globulin 4.2 g/dL (2.2-4.2); Glucose 223 mg/dL (74-106); High Density Lipoprotein 24 mg/dL; Potassium 3.9 mmol/L (3.5-5.1); Protein, Total 7.8 g/dL (6.4-8.2); Sodium Level 135 mmol/L (136-145); Triglycerides 542 mg/dL
== END 2024-02-01 23:59 ==
LOC: BIMLAB 10:59
PROVIDERS: Nurse Practitioner Family; PCP Internal Medicine; Referring Provider Nurse Practitioner; Visit Provider Nurse Practitioner
DX: Z79.01 Long term (current) use of anticoagulants (principal)
CPT/HCPCS: 36415; 80053; 80061; 84439; 84443; 85610

== ENCOUNTER 2024-02-28 12:43 | Emergency (ER) | payer MEDICAID, SELFPAY ==
[2024-02-28 12:45] VITALS: BP 174/84; PULSE 108; RESP 16; TEMP 35.8; O2SAT 97; BMI 30.4
--- NOTE | 2024-02-28 12:59 | ED.VIS.FALL ---
HPI HPI - Fall History of Present Illness Chief Complaint: Fall Informant: patient Occured/Mechanism Occurred: Yesterday Fall from Height (ft): 2 feet Pain/Injury Pain Location: back and upper extremity (Left) Quality of Pain: Sharp and Dull Worsened by: Movement Relieved by: Nothing Associated Symptoms Associated Symptoms: Positive for Parasthesias; Negative for Weakness, Loss of function, Inability to ambulate, Loss of consciousness or Amnesia Narrative Narrative: Patient presents after a fall that occurred yesterday. Patient states she was in a ladder and fell approximately 2 feet. Patient states she has pain in her low back and left upper extremity. Patient states she did not hit her head or lose consciousness. Patient does admit to some tingling in the tips of her fingers of her left hand. Patient describes her pain as sharp and dull. Patient states it is worse with any movement. Patient denies any other injuries. Patient does states she is taking Coumadin. [facility] Medical History Xanthelasmatosis Abdominal pain Nausea, vomiting, and diarrhea DKA (diabetic ketoacidosis) Anemia Bipolar disorder Anxiety Depression GERD (gastroesophageal reflux disease) Former smoker Migraines Headache DVT (deep venous thrombosis) Chronic anticoagulation Type 1 diabetes mellitus Abnormal angiogram HTN (hypertension) Hyperlipidemia Home Medications ?Medication ?Instructions ?Recorded ?Last Taken ?Type aspirin 81 mg tablet,delayed 81 mg PO DAILY 30 days #30 tabs 03/14/23 Unknown Rx release (Adult Low Dose Aspirin) insulin syr/ndl U100 half ángel 0.3 #100 ea 03/14/23 Unknown Rx mL 30 gauge x 1/2 metoprolol succinate 100 mg 100 mg PO DAILY 30 days #30 tabs 07/13/23 Unknown Rx tablet,extended release 24 hr (Toprol XL) pen needle, diabetic 32 gauge x #1,200 ea 07/13/23 Unknown Rx 5/32 (BD Ultra-Fine Elyssa Pen Needle) blood sugar diagnostic (OneTouch #100 ea 07/17/23 Unknown Rx Verio test strips) blood-glucose meter (OneTouch #1 ea 07/17/23 Unknown Rx Verio Flex Meter) lancets 30 gauge (Onetouch Delica #200 ea 07/17/23 Unknown Rx Safety Lancet) amitriptyline 25 mg tablet 25 mg PO QHS 09/06/23 Unknown History desvenlafaxine succinate 25 mg 25 mg PO DAILY #30 tabs 09/06/23 Unknown Rx tablet,extended release 24 hr (Pristiq) insulin lispro 100 unit/mL 250 unit (2.5 mL) continuous 09/27/23 Unknown Rx subcutaneous solution (Humalog subcutaneous infusion .continuous U-100 Insulin) #75 mL Guardian 4 Glucose Sensor #10 ea 11/02/23 Unknown Rx (blood-glucose sensor) insulin lispro 200 unit/mL (3 mL) 350 unit (1.75 mL) subcut 11/02/23 Unknown Rx subcutaneous pen (Humalog KwikPen .continuous #52.3 mL U-200 Insulin) cilostazol 100 mg tablet 100 mg PO BID #60 tabs 11/09/23 Unknown Rx blood-glucose transmitter #1 ea 11/15/23 Unknown Rx (Guardian 4 Transmitter device) cariprazine 1.5 mg capsule 1.5 mg PO QDAY 12/06/23 Unknown History (Vraylar) eszopiclone 2 mg tablet 2 mg PO QHS 12/06/23 Unknown History atorvastatin 40 mg tablet 40 mg PO DAILY 30 days #30 tabs 01/11/24 Unknown Rx fenofibrate nanocrystallized 145 145 mg PO DAILY #30 tabs 01/11/24 Unknown Rx mg tablet levothyroxine 112 mcg capsule 112 mcg PO DAILY #30 caps 01/11/24 Unknown Rx losartan 50 mg tablet 50 mg PO DAILY #90 tabs 01/11/24 Unknown Rx pantoprazole 40 mg tablet,delayed 40 mg PO BID #60 tabs 01/11/24 Unknown Rx release (Protonix) pregabalin 300 mg capsule 300 mg PO BID 01/11/24 Unknown History warfarin 10 mg tablet 15 mg (1.5 x 10 mg) PO DAILY #45 01/11/24 Unknown Rx tabs hydrocodone-acetaminophen 5-325mg 1 tab PO Q6H PRN PRN Pain 3 days 02/28/24 Unknown Rx 5mg-325mg #10 TABLETS Allergy/AdvReac Type Severity Reaction Status Date / Time morphine Allergy Intermediate Rash Verified 02/28/24 12:47 orange Allergy Rash Verified 02/28/24 12:47 Family History Father Hypertension Cancer lung Diabetes Mother Diabetes Hypertension Cancer bladder Dementia Surgical History H/O section History of revascularization procedure of lower extremity Hx of cholecystectomy History of intravascular stent placement Tubal ligation status History of below-knee amputation of left lower extremity S/P BKA (below knee amputation) unilateral Social History household members: spouse and children housing: house current occupational status: disabled current occupation: for [employer] Smoking Status: Former smoker quit date: 04/03/19 pack-years: 20 Electronic Cigarette Use: not used alcohol intake: never substance use type: does not use what type of physical activity do you participate in: none seatbelt use: always do you feel safe at home: Yes ROS ROS ED Constitutional Constitutional ED: Denies chills or fever(s) Eyes Eyes: Denies blurry vision or change in vision ENT ENT ED: Denies rhinorrhea or sore throat Cardiovascular Cardiovascular: Denies chest pain or palpitations Respiratory/Chest Respiratory/Chest: Denies cough or dyspnea Gastrointestinal Gastrointestinal: Denies nausea or vomiting Genitourinary Genitourinary ED: Denies dysuria or hematuria Musculoskeletal Musculoskeletal: Reports back pain and neck pain Integumentary Denies abscess or rash Neurologic Neurologic: Denies headache(s) or weakness Allergic/Immunologic Allergic/Immunologic ED: Denies mouth swelling or urticaria EXAM Physical Exam Const Vital Signs: 02/28/24 12:45 02/28/24 13:52 Temperature 96.5 F L Temperature Source Temporal Pulse Rate 108 H Respiratory Rate 16 Respiratory Effort Normal Respiratory Depth Normal Respiratory Pattern Normal Blood Pressure 174/84 H Blood Pressure Mean 114 Pulse Ox 97 Oxygen Delivery Method Room Air Positive well nourished and well developed General Appearance ED: well developed and NAD HEENT Reports normocephalic atraumatic Eyes PERRL and EOMs intact bilaterally Neck full ROM Neck Narrative: There is tenderness over the cervical spine and paraspinal muscles. There is no bony crepitance or step-off. There is no edema or ecchymosis noted. General: tenderness Back/Spine Back/Spine Narrative: There is tenderness over the lumbar spine paraspinal muscles. There is no edema or ecchymosis. Range of motion was slightly limited in all motions of the lumbar spine secondary to pain. Strength is 5/5 bilaterally in the upper and lower extremities. There are no sensory deficits. Thoracic Spine / Upper Back: ROM limited Extremity Extremity Narrative: There is tenderness over the left wrist and left elbow. Range of motion was limited in all motions of the left wrist and left elbow secondary to pain. There is no obvious deformity noted. Radial pulses are equal bilaterally. Neuro oriented x3, CN's II-XII intact bilaterally, moves all extremities, no focal motor deficits and no sensory deficits noted [place] Coma Scale: document GCS findings Spontaneous Obeys Commands Oriented 15 Sensorium / Orientation: alert Motor Exam: strength 5/5 throughout MDM MDM MDM Narrative Medical decision making narrative: Differential diagnosis includes intracranial bleeding, closed head injury, wrist fracture, elbow fracture, lumbar compression fracture, cervical spine fracture, muscle strain, and contusion. CT scan of the brain will be obtained to assess for intracranial bleeding. CT scan of the cervical spine will be obtained to assess for cervical spine fracture. X-rays of the lumbar spine will be obtained to assess for lumbar compression fracture. X-rays of the left wrist will be obtained to assess for wrist fracture. X-rays of the left elbow will be obtained to assess for elbow fracture and dislocation. Radiography Diagnostic Testing: Clinical Impression(s) from Imaging Studies Brain CT 02/28/24 13:14 IMPRESSION: Negative head/brain CT without intravenous contrast and unchanged. Electronically Signed: Hardik Tucker MD at 14:38 EST , Cervical Spine CT 02/28/24 13:[address]: [address] evidence of acute fracture or traumatic subluxation of the cervical spine, craniocervical junction and cervicothoracic junction. 2. No CT evidence of suspicious cervical extruded disc fragment although limited by the absence of intrathecal contrast. 3. No CT evidence of cervical spinal stenosis. Electronically Signed: Hardik Tucker MD at 14:51 EST , Elbow X-Ray 02/28/24 13:30 IMPRESSION: Normal x-ray examination of the left elbow. Electronically Signed: Norris Self MD at 14:16 EST , Lumbar Spine X-Ray 02/28/24 13:30 IMPRESSION: 1. No suspicious acute fractures or malalignment of the lumbar spine. 2. Slight anterior wedging of the L1 superior endplate may be developmental or from remote injury. Electronically Signed: Hardik Tucker MD at 15:00 EST , Wrist X-Ray 02/28/24 13:30 IMPRESSION: No demonstrated acute fracture. Electronically Signed: Norris Self MD at 14:17 EST , X-rays of the left wrist were obtained. There are 3 views. On my independent interpretation, there is no acute fracture or dislocation. There is no soft tissue swelling noted. Radiologist also interpreted the x-rays and agrees. X-rays of the left elbow were obtained. There are 3 views. On my independent interpretation, there is no acute fracture or dislocation. There is no joint effusion noted. Radiologist also interpreted the x-rays and agrees. X-rays of the lumbar spine were obtained. There is 2 views. On my independent interpretation, there is no acute fracture or spondylolisthesis. There are some mild degenerative changes noted. Radiologist also interpreted the x-rays and agrees. CT scan of the brain was obtained. There is no acute intracranial abnormality. This was interpreted by the radiologist and was also independently reviewed by myself. CT scan of the cervical spine was obtained. There is no acute fracture or spondylolisthesis noted. There is no soft tissue swelling noted. This was interpreted by the radiologist and was also independently reviewed by myself. Treatment and Re-Evaluation Narrative: Patient was given a dose of [place] here. Patient was advised of her findings. Patient was instructed to ice and elevate her back and the left upper extremity. Patient was instructed to take Tylenol as needed for pain. Patient was instructed to follow-up with her primary care physician in 5 to 7 days. Patient was instructed return if worse in any way. Patient understood and was agreeable with the plan. All questions were answered. Discharge Plan Triage Chief Complaint: Fall ED Provider: Sergio Vogel Dx/Rx/DC Orders Clinical Impression: Fall, Closed head injury, Acute myofascial strain of lumbosacral region, Contusion of left wrist, initial encounter, Contusion of left elbow, initial encounter Instructions: ED Back Sprain/Strain, ED Contusion, Upper Extremity, ED Head Injury (Adult) Prescriptions: New hydrocodone-acetaminophen 5-325 mg tablet 1 tab PO Q6H PRN PRN (Reason: Pain) 3 Days Qty: 10 0RF No Action metoprolol succinate [Toprol XL] 100 mg tablet extended release 24 hr 100 mg PO DAILY 30 Days Qty: 30 2RF (DME) pen needle, diabetic [BD Ultra-Fine Elyssa Pen Needle] 32 gauge x 5/32 needle See Rx Instructions .Route Qty: 1200 1RF Rx Instructions: QID desvenlafaxine succinate [Pristiq] 25 mg tablet extended release 24 hr 25 mg PO DAILY Qty: 30 1RF amitriptyline 25 mg tablet 25 mg PO QHS Vraylar 1.5 mg capsule 1.5 mg PO QDAY eszopiclone 2 mg tablet 2 mg PO QHS pregabalin 300 mg capsule 300 mg PO BID atorvastatin 40 mg tablet 40 mg PO DAILY 30 Days Qty: 30 2RF fenofibrate nanocrystallized 145 mg tablet 145 mg PO DAILY Qty: 30 2RF levothyroxine 112 mcg capsule 112 mcg PO DAILY Qty: 30 1RF losartan 50 mg tablet 50 mg PO DAILY Qty: 90 1RF pantoprazole [Protonix] 40 mg tablet,delayed release (DR/EC) 40 mg PO BID Qty: 60 1RF warfarin 10 mg tablet 15 mg PO DAILY Qty: 45 0RF cilostazol 100 mg tablet 100 mg PO BID Qty: 60 5RF (DME) insulin syr/ndl U100 half ángel 0.3 mL 30 gauge x 1/2 syringe See Rx Instructions .Route Qty: 100 0RF Rx Instructions: As directed aspirin [Adult Low Dose Aspirin] 81 mg tablet,delayed release (DR/EC) 81 mg PO DAILY 30 Days Qty: 30 0RF (DME) blood-glucose meter [OneTouch Verio Flex meter] Misc See Rx Instructions .Route Qty: 1 0RF Rx Instructions: As directed (DME) OneTouch Verio test strips Strip See Rx Instructions .Route Qty: 100 5RF Rx Instructions: TID (DME) lancets [Onetouch Delica Safety Lancet] 30 gauge misc See Rx Instructions .Route Qty: 200 5RF Rx Instructions: TID insulin lispro [Humalog U-100 Insulin] 100 unit/mL solution 250 unit continuous subcutaneous infusion .continuous Qty: 75 3RF Humalog KwikPen Insulin 200 unit/mL (3 mL) insulin pen 350 unit subcut .continuous Qty: 52.3 5RF (DME) Guardian 4 Glucose Sensor Device See Rx Instructions .Route Qty: 10 3RF Rx Instructions: as directed (DME) Guardian 4 Transmitter Device See Rx Instructions .Route Qty: 1 0RF Rx Instructions: As directed Primary Care Provider: Autumn Whitt Referrals: Autumn Whitt MD [Primary Care Provider] - 5-7 Days Print Language: Singaporean Disposition Disposition: Home, Self Care
--- NOTE | 2024-02-28 13:14 | CT_ITS ---
EXAM: CT CERVICAL SPINE WITHOUT INTRAVENOUS CONTRAST CLINICAL INDICATION: Fall injury from ladder yesterday. Pain. TECHNIQUE: Helically acquired images were obtained of the cervical spine without intravenous contrast. 2D reformatted images were reviewed. This CT exam was performed using one or more of the following dose reduction techniques: automated exposure control, adjustment of the mA and/or kV according to patient size, and/or use of iterative reconstruction technique. RADIATION DOSE: CTDIvol = 21.26 mGy, DLP = 454.71 mGy-cm COMPARISON: No relevant prior studies available. FINDINGS: VERTEBRAE: Straightening of the C-spine curvature. No recent or remote fractures of the vertebral bodies and posterior osseous elements of the cervical spine. No traumatic malalignment or subluxation of the cervical spine, craniocervical junction and cervicothoracic junction. Normal vertebral body heights. Normal facet joints. No discrete lytic or blastic abnormality. DISCS/SPINAL CANAL/NEURAL FORAMINA: Unremarkable. No critical stenosis. Normal cervical disc space heights. Normal central canal and bilateral intervertebral neuroforamina. SOFT TISSUES: Unremarkable. No prevertebral soft tissue swelling. LYMPH NODES: Unremarkable. No cervical adenopathy. LUNG APICES: Unremarkable as visualized. Clear. CT/Spine Cervical without Contras IMPRESSION: 1. No CT evidence of acute fracture or traumatic subluxation of the cervical spine, craniocervical junction and cervicothoracic junction. 2. No CT evidence of suspicious cervical extruded disc fragment although limited by the absence of intrathecal contrast. 3. No CT evidence of cervical spinal stenosis. Electronically Signed: Hardik Tucker MD at 14:51 EST ,
--- NOTE | 2024-02-28 13:14 | CT_ITS ---
EXAM: CT HEAD WITHOUT INTRAVENOUS CONTRAST CLINICAL INDICATION: Fall from ladder injury yesterday. Pain. TECHNIQUE: Multiple axial images were obtained of the head without intravenous contrast. This CT exam was performed using one or more of the following dose reduction techniques: automated exposure control, adjustment of the mA and/or kV according to patient size, and/or use of iterative reconstruction technique. RADIATION DOSE: CTDIvol = 47.06 mGy, DLP = 819.74 mGy-cm COMPARISON: CT head without contrast 06/04/2023. FINDINGS: BRAIN AND EXTRA-AXIAL SPACES: Unremarkable. No intra- or extra-axial hemorrhage. No evidence of acute infarct. No intracranial mass or mass effect. There is preservation of the kaye/white matter interface. Posterior fossa structures are unremarkable. Ventricles are appropriate for age. No hydrocephalus. Basal cisterns are patent. BONES/JOINTS: Unremarkable. No discrete lytic or blastic abnormalities. SINUSES: Unremarkable as visualized. Clear. MASTOID AIR CELLS: Unremarkable. Clear. ORBITS: Visualized globes, extraocular muscles, optic nerves and retrobulbar fat appear unremarkable. CT/Brain/Head without Contrast IMPRESSION: Negative head/brain CT without intravenous contrast and unchanged. Electronically Signed: Hardik Tucker MD at 14:38 EST ,
--- NOTE | 2024-02-28 13:30 | RAD_ITS ---
STUDY: X-RAY - LEFT ELBOW REASON FOR EXAM: Female, 38 years old. Injury/Pain. TECHNIQUE: 3 views of the left elbow. COMPARISON: None. FINDINGS: Normal visualized humerus, radius and ulna. Normal radiocapitellar and ulnotrochlear articulations. The soft tissue structures are unremarkable. There is no demonstrated fracture. RAD/Elbow min 3 Views IMPRESSION: Normal x-ray examination of the left elbow. Electronically Signed: Norris Self MD at 14:16 EST ,
--- NOTE | 2024-02-28 13:30 | RAD_ITS ---
STUDY: X-RAY - LEFT WRIST REASON FOR EXAM: Female, 38 years old. Injury/Pain TECHNIQUE: 3 views of the left wrist were obtained. COMPARISON: None. FINDINGS: Normal visualized distal radius and ulna. Normal radiocarpal articulation. Normal distal radioulnar articulation. Normal carpal bones. Normal carpal articulations. Normal carpometacarpal articulation of the thumb. Normal second through fifth carpometacarpal articulations. Normal visualized metacarpal bones. The soft tissue structures are unremarkable. There is no demonstrated acute fracture. RAD/Wrist min 3 Views IMPRESSION: No demonstrated acute fracture. Electronically Signed: Norris Self MD at 14:17 EST ,
--- NOTE | 2024-02-28 13:30 | RAD_ITS ---
EXAM: XR LUMBOSACRAL SPINE, 2 OR 3 VIEWS CLINICAL INDICATION: Fell off ladder injury yesterday. Low back pain. TECHNIQUE: Frontal and lateral views of the lumbar spine and sacrum. COMPARISON: No relevant prior studies available. FINDINGS: VERTEBRAE: Slight anterior wedging of the L1 superior endplate may be developmental. No acute fractures of the vertebral bodies and posterior osseous elements. No traumatic subluxation. No lytic or blastic lesions. No spondylolisthesis. Preservation of the normal lumbar lordosis. No significant facet arthropathy. DISC SPACES: No acute findings. Normal lumbar disc space heights. GASTROINTESTINAL TRACT: Unremarkable as visualized. Included bowel gas pattern is non-obstructive. RAD/Lumbar Spine 2 or 3 Views IMPRESSION: 1. No suspicious acute fractures or malalignment of the lumbar spine. 2. Slight anterior wedging of the L1 superior endplate may be developmental or from remote injury. Electronically Signed: Hardik Tucker MD at 15:00 EST ,
[2024-02-28] MEDS: HYDROcodone Bitartrate/Apap 5/325 Tablet PO (13:46)
[2024-02-28] MEDS: Ketorolac 30 MG/ML Syringe IM (15:28)
[2024-02-28 15:32] VITALS: BP 137/91; PULSE 90; RESP 16; TEMP 36.7; O2SAT 100
--- NOTE | 2024-02-28 15:50 | ED.RN ---
[facility] pharmacy called this RN to question hydrocodone prescription as pt. already has an existing tramadol and pregabalin prescription. Dr. Matson stated to cancel hydrocodone script as dr. Vogel is not here anymore. This RN called and spoke with patient and pt. voiced understanding.
== END 2024-02-28 15:44 | disposition home or self-care (01) ==
PROVIDERS: Emergency Provider Emergency Medicine; PCP Internal Medicine; Visit Provider Emergency Medicine
DX: S09.90XA Unspecified injury of head, initial encounter (principal); Z89.512 Acquired absence of left leg below knee; E10.9 Type 1 diabetes mellitus without complications; S39.012A Strain of muscle, fascia and tendon of lower back, initial encounter; S60.212A Contusion of left wrist, initial encounter; S50.02XA Contusion of left elbow, initial encounter; W11.XXXA Fall on and from ladder, initial encounter; I10 Essential (primary) hypertension; Z79.01 Long term (current) use of anticoagulants; Z79.899 Other long term (current) drug therapy; Z86.718 Personal history of other venous thrombosis and embolism; Z87.891 Personal history of nicotine dependence
CPT/HCPCS: 70450; 72100; 72125; 73080; 73110; 96372; 99282

== ENCOUNTER 2024-08-30 17:37 | Emergency (ER) | payer MEDICAID, SELFPAY ==
[2024-08-30 17:38] VITALS: BP 144/74; PULSE 111; RESP 18; TEMP 36.2; O2SAT 97; BMI 28.0
--- NOTE | 2024-08-30 18:10 | CT_ITS ---
PROCEDURE: SPINE CERVICAL WITHOUT CONTRAS 08/30/2024 REASON FOR EXAM: INJURY/PAIN TECHNIQUE: Cervical spine CT without contrast. Coronal and Sagittal reconstruction series were provided. One or more dose reduction techniques were used (e.g., Automated exposure control, adjustment of the mA and/or kV according to patient size, use of iterative reconstruction technique RADIATION DOSE SUMMARY: CTDlvol: 22.72 mGy DLP: 449.54 mGycm COMPARISON: 02/28/2024 FINDINGS: No evidence of acute fracture or dislocation. Vertebral body heights are maintained. Mild discogenic degenerative changes of the visualized spine. The prevertebral soft tissues are unremarkable. CT/Spine Cervical without Contras IMPRESSION: NO ACUTE CERVICAL FRACTURE Reading Location: [place] [id number]
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
[2024-08-30] MEDS: HYDROcodone Bitartrate/Apap 5/325 Tablet PO (18:18)
--- NOTE | 2024-08-30 18:35 | RAD_ITS ---
EXAM: Right tib fib radiographs CLINICAL HISTORY: Trauma COMPARISON: None TECHNIQUE: Two views of the right tibia and fibula RAD/Tibia & Fibula 2 Views IMPRESSION: No acute fracture or dislocation. Chronic appearing deformity of the distal fi bula may be sequelae of prior injury. No acute soft tissue abnormalities. No radiographic foreign body. Reading Location: [id number]
--- NOTE | 2024-08-30 18:35 | RAD_ITS ---
PROCEDURE: SHOULDER MIN 2 VIEWS 08/30/2024 REASON FOR EXAM: INJURY/PAIN TECHNIQUE: Five views of the right shoulder. COMPARISON: None. FINDINGS: No evidence of acute fracture or dislocation. The joint spaces are maintained. The soft tissues are unremarkable. RAD/Shoulder min 2 Views IMPRESSION: No acute osseous abnormality. Reading Location: [place] [id number]
--- NOTE | 2024-08-30 18:35 | RAD_ITS ---
PROCEDURE: HIP, UNI W/ PELVIS 2-3 VIEWS 08/30/2024 REASON FOR EXAM: INJURY/PAIN TECHNIQUE: 3 views of the right hip. COMPARISON: None. FINDINGS: No evidence of acute fracture or dislocation. No acute soft tissue abnormalities. RAD/HIP, UNI W/ Pelvis 2-3 Views IMPRESSION: NO ACUTE FRACTURE OR DISLOCATION. If acute hip fracture is suspected after a fa ll or minor trauma and initial radiographs are negative then MRI of the pelvis and affected hip without IV contrast or CT of t he pelvis and hips without IV contrast is usually appropriate as the next imaging study. (ACR Appropriateness Criteria: Acute Hip Pain-Suspected Fracture 2018) Reading Location: [place] [id number]
[2024-08-30 18:51] VITALS: O2SAT 97
[2024-08-30 19:25] VITALS: BP 127/80; PULSE 74; RESP 14; TEMP 36.6; O2SAT 97
== END 2024-08-30 19:25 | disposition home or self-care (01) ==
PROVIDERS: Emergency Provider Emergency Medicine; PCP Internal Medicine; Visit Provider Emergency Medicine
DX: S16.1XXA Strain of muscle, fascia and tendon at neck level, initial encounter (principal); E10.9 Type 1 diabetes mellitus without complications; S70.01XA Contusion of right hip, initial encounter; S40.011A Contusion of right shoulder, initial encounter; S80.11XA Contusion of right lower leg, initial encounter; V40.6XXA Car passenger injured in collision with pedestrian or animal in traffic accident, initial encounter; I10 Essential (primary) hypertension; E78.2 Mixed hyperlipidemia; Z79.01 Long term (current) use of anticoagulants; Z79.82 Long term (current) use of aspirin; Z79.899 Other long term (current) drug therapy; Z86.718 Personal history of other venous thrombosis and embolism; Z87.891 Personal history of nicotine dependence
CPT/HCPCS: 72125; 73030; 73502; 73590; 99282

== ENCOUNTER → 2024-09-20 | Outpatient (CLI) | payer MEDICAID, SELFPAY ==
[2024-09-20 14:45] LABS: Absolute Lymphocyte Count 2.12 X10^3/uL (0.83-4.51); Absolute Neutrophil Count 4.5 X10^3/uL (2.0-7.7); Basophil# 0.08 X10^3/uL; Basophil% 1.1 % (0-1); Eosinophil# 0.26 X10^3/uL; Eosinophils% 3.5 % (0-5); Hematocrit 43.3 % (37-47); Hemoglobin 14.8 g/dL (12.0-15.0); Lymphocyte # 2.12 X10^3/ul (0.83-4.51); Lymphocyte % 28.5 % (19-41); Mean Corp Hgb Conc 34.2 g/dL (32-36); Mean Corpuscular Hgb 26.7 pg (27.0-32.0); Mean Platelet Vol. 10.8 fl (6.2-12.0); Monocyte# 0.45 X10^3/uL; Monocyte% 6.1 % (0-10); NRBC Flagged by Analyzer 0 % (0-5); Neutrophil # 4.51 X10^3/uL (2.7-7.7); Neutrophil % 60.7 % (47-70); Platelet Count 281 K/mm3 (150-450); RBC Distribution Width CV 14.5 % (11.6-14.6); RBC Distribution Width SD 40.2 fl (35.1-43.9); Red Blood Count 5.55 M/mm3 (4.2-5.4); White Blood Count 7.4 K/mm3 (4.4-11.0)
[2024-09-20 14:58] LABS: Prothrombin Time (Protime)PT. 31.8 SECONDS (11.7-14.9)
[2024-09-20 15:59] LABS: ALB/GLOB Ratio 1.2 RATIO (0.9-2.4); AST(SGOT) 28 U/L (<=31); Alanine Aminotransfer ALT/SGPT 19 U/L (<=34); Albumin, Serum 4.3 g/dL (3.5-5.0); Alkaline Phosphatase 67 U/L (35-104); Anion Gap 14 (5-15); BUN 9 mg/dL (4-19); BUN/Creat Ratio 11.9 RATIO (10-20); Calcium,Total 9.8 mg/dL (7.6-11.0); Carbon Dioxide 22.9 mmol/L (21.0-32.0); Chloride 102 mmol/L (98-108); Cholesterol 143 mg/dL (<=200); Creatinine, Serum 0.75 mg/dL (0.70-1.20); EST Glomerular Filtration Rate 105 (>60); Globulin 3.5 g/dL (2.2-4.2); Glucose 83 mg/dL (70-99); High Density Lipoprotein 33 mg/dL; Low Density Lipoprotein Calc. 87 mg/dL; Potassium 4.2 mmol/L (3.3-5.1); Protein, Total 7.8 g/dL (5.9-8.4); Sodium Level 139 mmol/L (133-145); Total Bilirubin 0.23 mg/dL (0.00-1.30); Triglycerides 113 mg/dL; Very Low Density Lipoprotein 23 mg/dL (5-40); cholesterol:hdl ratio screen 4.28
[2024-09-20 16:08] LABS: Vitamin D,25 Hydroxy 24.4 ng/mL (30-100)
[2024-09-20 16:14] LABS: Microalbumin:Creatinine Ratio 63.6 mg/g CRE
[2024-09-24 15:08] LABS: C-Peptide 0.7 ng/mL (1.1-4.4)
== END | disposition home or self-care (01) ==
LOC: LAB 13:58
PROVIDERS: Family Medicine; PCP Internal Medicine; Referring Provider Nurse Practitioner Family; Visit Provider Nurse Practitioner Family
DX: E10.29 Type 1 diabetes mellitus with other diabetic kidney complication (principal); E03.9 Hypothyroidism, unspecified; E78.2 Mixed hyperlipidemia; R80.9 Proteinuria, unspecified; Z79.01 Long term (current) use of anticoagulants
CPT/HCPCS: 36415; 80053; 80061; 82043; 82306; 82570; 84439; 84443; 84681; 85025; 85610

== ENCOUNTER → 2024-11-13 | Outpatient (CLI) | payer MEDICAID, SELFPAY ==
--- NOTE | 2024-11-13 13:46 | ART_ITS ---
Reason For Study Reason For Study: PVD Procedure A bilateral lower extremity continuous wave Doppler with analog waveform analysis,segmental pressures,and ankle brachial indexes without exercise. Left Segmental Pressures HX Lt BKA. Right Segmental Pressures Right brachial= 114mmHg. Right high thigh = >254mmHg. Right low thigh = 109mmHg. Right calf = 102mmHg. Right posterior tibial artery = 28mmHg. Right dorsalis pedis artery = 70mmHg. Right digit = 30 mmHg. The right posterior tibial artery waveforms are monophasic. The right dorsalis pedis waveforms are monophasic. Indices The right ankle brachial index by the posterior tibial artery is 0.25. The right ankle brachial index by the dorsalis pedis is 0.61. The right digital-brachial index is 0.26. VL/Lower Ext Art Exam w/o Exercis Interpretation Summary Right CRISTOFER 0.61, moderate arterial insufficiency. Doppler/PVR waveforms and segm ental pressures reveal infrapopliteal disease. Non-compressible vessels proximal. Ordering Physician: Francheska Malone Referring Physician: Autumn Whitt Performed By: Ismael Ferrari, RVT
== END | disposition home or self-care (01) ==
LOC: CVS 13:46
PROVIDERS: PCP Internal Medicine; Referring Provider Physician Assistant; Visit Provider Physician Assistant
DX: I73.9 Peripheral vascular disease, unspecified (principal)
CPT/HCPCS: 93923

== ENCOUNTER 2024-12-25 20:46 | Emergency (ER) | payer MEDICAID, SELFPAY ==
[2024-12-25 21:10] VITALS: BP 136/74; PULSE 101; RESP 22; TEMP 37.2; O2SAT 100
[2024-12-25 22:19] VITALS: BMI 25.4
--- OUTSIDE RECORDS SUMMARY | 2024-12-25 22:45 | XMS RPT_ITS | CCD ---
Author Organization [facility] Care Team Providers Care Supervisor Contact Lens Name Role Phone Care Physician, No Primary Primary Care Provider Unavailable Dr. Sergio Vogel Emergency Provider Dr. Wai Roberts Admit Provider Dr. Wai Roberts Attending Provider Dr. Wai Roberts Other Provider Dr. Marcelo Stone Attending Provider [phone] Dr. Marcelo Stone Other Provider [phone] [facility] Primary Care Pro vider Dr. Sergio Sutherland Attending Provider Dr. Jesús Sales Referring Provider Dr. Jared Condon Emergency Provider Dr. Annemarie Rizzo Admit Provider Dr. Annemarie Rizzo Other Provider Dr. Jesús Sales Attending Provider Dr. Jesús Sales Other Provider [phone] [facility] Care Physician, No Primary Primary Care Provider Unavailable Dr. Sergio Vogel Emergency Provider Dr. Wai Roberts Admit Provider Dr. Wai Roberts Other Provider Dr. Marcelo Stone Attending Provider [phone] Dr. Marcelo Stone Other Provider [phone] [facility] Primary Care Pro vider Dr. Sergio Sutherland Attending Provider Dr. Jesús Sales Referring Provider Dr. Jared Condon Emergency Provider Dr. Annemarie Rizzo Admit Provider Dr. Annemarie Rizzo Other Provider Dr. Jesús Sales Attending Provider Dr. Jesús Sales Other Provider [phone] [facility] Care Physician, No Primary Referring Provider Un available SANDI Sharpe Attending Provider [facility] [place], Leticia Vega Referring Provid er SANDI Buitrago Attending Provider Dr. Autumn Whitt MD Primary Care Provider Dr. Autumn Whitt MD Attending Provider Dr. Autumn Whitt MD Referring Provider Georgina Chou Attending Provider Dr. Sergio Vogel DO Emergency Provider Dr. Sergio Vogel DO Attending Provider Georgina Chou Referring Provider Generic Provider MD, No Assigned Pcp Primary Car e Provider Unavailable GENERIC PROVIDER, NO ASSIGNED PCP Primary Care Unavailable JESÚS XAVIER Attending Unavailable Flavio Olivarez Attending Provider Francheska Levi Attending Provider YEYO ZHOU Attending Unavailable YEYO ZHOU Primary Care Unavailable YEYO ZHOU Admitting Unavailable LEMPAVEL LUNDBERG Attending Unavailable PAVEL QURESHI Primary Care Unavailable LEMPAVEL LUNDBERG Admitting Unavailable LEMPAVEL LUNDBERG Admitting Unavailable LEMPAVEL LUNDBERG Attending Unavailable PAVEL QURESHI Primary Care Unavailable SHY GANT MD Attending Unavailable SHY GANT MD Primary Care Unavailable SHY GANT MD Admitting Unavailable Jeannine Mayes Attending Unavailable [place], Autumn Primary Care Unavailable [place], Autumn Referring Unavailable [place], Autumn Primary Care Unavailable Ephraim Jimenez Attending Unavailable [place], Autumn Referring Unavailable Jose Eduardo, Autumn Primary Care Unavailable Malone, Francheska Attending Unavailable [place], Autumn Referring Unavailable [place], Autumn Primary Care Unavailable Flavio Mendoza Attending Unavailable Jose Eduardo, Autumn Referring Unavailable Ephraim Jimenez Attending Unavailable [place], Autumn Primary Care Unavailable Jose Eduardo, Autumn Referring Unavailable Flavio Mendoza Attending Unavailable Jose Eduardo, Autumn Primary Care Unavailable Sergio Sutherland Attending Unavailable [place], Autumn Primary Care Unavailable Malone, Francheska Referring Unavailable [place], Autumn Primary Care Unavailable MaloneMikeFrancheska Attending Unavailable Jose Eduardo, Autumn Referring Unavailable Georgina Sharpe Attending Unavailable [place], Autumn Primary Care Unavailable Jose Eduardo, Autumn Referring Unavailable Georgina Sharpe Attending Unavailable [place], Autumn Primary Care Unavailable Georgina Sharpe Referring Unavailable Basali, Ayman Referring Unavailable Basali Ayman Attending Unavailable [place], Autumn Primary Care Unavailable [place], Autumn Primary Care Unavailable Malone, Francheska Referring Unavailable MaloneMikeFrancheska Attending Unavailable Ivanna Buitrago Attending Unavailable [place], Autumn Primary Care Unavailable Jose Eduardo, Autumn Referring Unavailable SchwSergio mcneil Attending Unavailable [place], Autumn Primary Care Unavailable [place], Autumn Primary Care Unavailable Schwiger Sergio Attending Unavailable Ferullo, Ivanna Referring Unavailable FerulloThelmaIvanna Attending Unavailable [place], Autumn Primary Care Unavailable Ferullo, Ivanna Referring Unavailable Ferullo, Ivanna Attending Unavailable [place], Autumn Primary Care Unavailable EdllGeorgina Attending Unavailable [place], Autumn Referring Unavailable [place], Autumn Primary Care Unavailable Jose Eduardo, Autumn Primary Care Unavailable [place], Autumn Referring Unavailable Jose Eduardo, Autumn Attending Unavailable [place], Autumn Primary Care Unavailable Jose Eduardo, Autumn Attending Unavailable Jose Eduardo, Autumn Referring Unavailable [place], Autumn Referring Unavailable Jose Eduardo, Autumn Attending Unavailable Jose Eduardo, Autumn Primary Care Unavailable PHYSICIAN, NONE Primary Care Physician Unavailab le PHYSICIAN, NONE Primary Care Unavailable ELIU HANNON, KARTIK Ayala Attending Unavail able Allergies Allergy Classification Reported Allergen(s) Allergy Type Date of Onset Reaction(s) Facility (20 sources) Morphine; Translations: [MORPHINE] Drug Allergy 02-09-2023 [facility] (18 sources) [place] - fruit; Translations: [ORANGE] Allergy to substance 02-09-2023 [facility] (1 source) Morphine Drug Allergy [facility] (1 source) Morphine Drug Allergy 11-01-2024 [facility] (1 source) [place] - fruit Drug allergy (disorder) 11-01-2024 [facility] (1 source) [place] - fruit Food allergy [facility] Medications Current Medications Medication Drug Class(es) Dates Sig (Normalized) Sig (Original) Blood Pressure Monitor kit (5 sources) Start: 07-15-2024 Blood Pressure Monitor kit Active 0 .Route 1 0 July 15, 2024 12:00am Hypertension Essential (primary) hypertension As directed Start: 07-15-2024 Blood Pressure Monitor kit Active 0 .Route 1 July 15, 2024 12:00am As directed Blood-Glucose Meter (Onetouc h Verio Flex Meter) misc (6 sources) Start: 07-17-2023 Blood-Glucose Meter (Onetouch Verio Flex Meter) misc Active 0 .Route 1 0 July 17, 2023 12:00am Type 1 diabetes mellitus Type 1 diabetes mellitus with other diabetic kidney complication Proteinuria, unspecified As directed Start: 07-17-2023 Blood-Glucose Meter (Onetouch Verio Flex Meter) misc Active 0 .Route 1 July 17, 2023 12:00am As directed Blood-Glucose Sensor (Guardi an 4 Glucose Sensor) device (12 sources) Start: 09-30-2024 Blood-Glucose Sensor (Guardian 4 Glucose Sensor) device Active 0 .Route 12 September 30, 2024 12:00am Type 1 diabetes mellitus Type 1 diabetes mellitus with other diabetic kidney complication Proteinuria, unspecified 1 sensor q 7 days Start: 11-02-2023 Blood-Glucose Sensor (Guardian 4 Glucose Sensor) device Active 0 .Route 10 November 02, 2023 5:15pm Type 1 diabetes mellitus Type 1 diabetes mellitus with other diabetic kidney complication Proteinuria, unspecified as directed Start: 11-02-2023 Blood-Glucose Sensor (Guardian 4 Glucose Sensor) device Active 0 .Route November 02, 2023 5:15pm as directed Start: 09-18-2023 End: 11-02-2023 Blood-Glucose Sensor (Guardi an 4 Glucose Sensor) device Discontinued 0 .Route 10 September 18, 2023 12:00am November 02, 2023 5:16pm As directed Start: 09-18-2023 End: 11-02-2023 Blood-Glucose Sensor (Guardi an 4 Glucose Sensor) device Discontinued 0 .Route September 18, 2023 12:00am November 02, 2023 5:16pm As directed Blood-Glucose Transmitter (Guardian 4 Transmitter) device (7 sources) Start: 09-30-2024 Blood-Glucose Transmitter (Guardian 4 Transmitter) device Active 0 .Route 1 September 30, 2024 12:00am As directed Start: 11-15-2023 Blood-Glucose Transmitter (Guardian 4 Transmitter) device Active 0 .Route 1 November 15, 2023 12:00am Type 1 diabetes mellitus Type 1 diabetes mellitus with other diabetic kidney complication Proteinuria, unspecified As directed Start: 11-15-2023 Blood-Glucose Transmitter (Guardian 4 Transmitter) device Active 0 .Route 1 November 15, 2023 12:00am As directed cholecalciferol 0.025 mg oral tablet (1 source) Vitamin D take 1 tablet by mouth once daily cholecalciferol (Vitamin D3) 25 mcg (1,000 units) tablet Take 1 tablet (25 mcg) by mouth once daily. Active cilostazol 100 mg oral tablet (20 sources) Phosphodiesterase 3 Inhibitor Start: 2024 take 1 tablet by mouth every twelve hours cilostazol (Pletal) 100 mg tablet Take 1 tablet (100 mg) by mouth every 12 hours. 07/15/2024 Active Start: 11-09-2023 End: 07-15-2024 take 1 tablet by mouth twice daily Cilostazol 100 mg tablet Active 100 mg PO TWICE A DAY 60 July 15, 2024 8:23am Start: 08-01-2023 End: 11-09-2023 take 1 tablet by mouth twice daily Cilostazol 50 mg tablet Discontinued 50 mg PO TWICE A DAY 60 October 20, 2023 1:08pm November 09, 2023 11:27am cyclobenzaprine hydrochloride 5 mg oral tablet (20 sources) Muscle Relaxant Start: 12-13-2024 End: 12-18-2024 cyclobenzaprine 5 mg oral tablet Dose : 5 mg = 1 tab(s), Oral, TID, X 5 day(s), # 15 tab(s), 0 Refill(s), 12/18/24 5:47:00 PM EDT Start Date: 12/13/24 Stop Date: 12/18/24 Status: Ordered Medication Dispense Status: Completed Quantity: 15.0 Unit: tab(s) Total Allowed Fills: 1 Fills Dispensed: 0 Start: 04-23-2023 End: 05-14-2023 take 1 tablet by mouth three times daily as needed for muscle spasms Cyclobenzaprine 10 mg tablet Discontinued 10 mg PO THREE TIMES A DAY as needed for Muscle Spasm 20 April 23, 2023 1:00am May 14, 2023 5:04pm Start: 03-01-2023 End: 03-14-2023 take 1 tablet by mouth three times daily as needed for muscle spasms Cyclobenzaprine 10 mg tablet Discontinued 10 mg PO THREE TIMES A DAY as needed for Muscle Spasm March 01, 2023 1:00am March 14, 2023 4:48pm Start: 02-09-2023 End: 03-09-2023 take 1 tablet by mouth twice daily as needed for muscle spasms Cyclobenzaprine 10 mg tablet Discontinued 10 mg PO TWICE A DAY as needed for muscle spasm February 09, 2023 1:00am March 09, 2023 10:39am 24 hr desvenlafaxine succinate 25 mg extended release oral tablet (5 sources) Serotonin and Norepinephrine Reuptake Inhibitor Start: 09-06-2023 take 1 tablet by mouth once daily, then take 1 tablet by mouth every twenty-four hours Desvenlafaxine Succinate (Pristiq) 25 mg tablet extended release 24 hr Active 25 mg PO DAILY 30 September 06, 2023 12:00am Insulin Glargine-Yfgn (4 sources) Start: 05-15-2023 Insulin Glargine-Yfgn Active 35 UNIT SC TWICE DAILY WITH MEALS May 15, 2023 1:00am Start: 05-15-2023 Insulin Glargi ne-Yfgn Active 35 UNIT SC TWICE DAILY WITH MEALS 0 May 15, 2023 12:00am Insulin Syr/Ndl U100 Half Ma rk (9 sources) Start: 03-14-2023 Insulin Syr/Nd l U100 Half Jesús Active 0 .Route March 14, 2023 1:00am As directed Start: 03-14-2023 Insulin Syr/Nd l U100 Half Jesús Active 0 .Route March 14, 2023 12:00am As directed levothyroxine sodium 0.112 mg oral tablet (20 sources) l-Thyroxine Start: 10-11-2024 take 1 tablet by mouth in the morning levothyroxine (Synthroid, Levoxyl) 112 mcg tablet Take 1 tablet (112 mcg) by mouth early in the morning.. 10/11/2024 Active Start: 09-13-2023 End: 10-11-2024 take 1 capsule by mouth once daily Levothyroxine 112 mcg capsule Discontinued 112 ug PO DAILY 30 July 15, 2024 8:24am October 11, 2024 1:11pm Hypothyroidism Hypothyroidism, unspecified Start: 07-18-2023 End: 09-13-2023 take 1 capsule by mouth once daily Levothyroxine 25 mcg capsule Discontinued 25 ug PO DAILY 30 July 18, 2023 12:00am September 13, 2023 4:15pm Hypothyroidism Hypothyroidism, unspecified losartan potassium 25 mg oral tablet (20 sources) Angiotensin 2 Receptor Hector Start: 10-12-2024 take 1 tablet by mouth once daily losartan (Cozaar) 50 mg tablet Take 1 tablet (50 mg) by mouth once daily. 10/12/2024 Active Start: 07-15-2024 End: 11-01-2024 take 1 tablet by mouth once daily Losartan 25 mg tablet Active 25 mg PO DAILY 90 November 01, 2024 11:48am Type 1 diabetes mellitus Hypertension Type 1 diabetes mellitus without complications Essential (primary) hypertension Start: 2023 End: 07-15-2024 take 1 tablet by mouth once daily Losartan 50 mg tablet Discontinued 50 mg PO DAILY January 11, 2024 12:32pm July 15, 2024 8:27am Type 1 diabetes mellitus Hypertension Type 1 diabetes mellitus without complications Essential (primary) hypertension Start: 07-13-2023 End: 2023 take 1 tablet by mouth once daily Losartan 25 mg tablet Discontinued 25 mg PO DAILY 30 5 July 13, 2023 12:00am 2023 5:42pm Type 1 diabetes mellitus Hypertension Type 1 diabetes mellitus without complications Essential (primary) hypertension ondansetron 4 mg disintegrating oral tablet (2 sources) Serotonin-3 Receptor Antagonist Start: 10-14-2024 take 1 tablet by mouth every eight hours as needed for nausea and vomiting Ondansetron 4 mg tablet,disintegrating Active 4 mg PO Q8H as needed for nausea and vomiting 30 October 14, 2024 12:00am traMADol hydrochloride 50 mg oral tablet (1 source) Opioid Agonist Start: 10-18-2024 End: 10-21-2024 take 1 tablet by mouth every six hours for pain traMADol (Ultram) 50 mg tablet Indications: Peripheral vascular disease Take 1 tablet (50 mg) by mouth every 6 hours if needed for severe pain (7 - 10) for up to 3 days. 12 tablet 10/18/2024 10/21/2024 Active warfarin sodium 10 mg oral tablet (20 sources) Vitamin K Antagonist Start: 11-01-2024 take 1 tablet by mouth once daily Warfarin 10 mg tablet Active 10 mg PO DAILY 90 November 01, 2024 11:36am Start: 09-23-2024 take 1.5 tablets by mouth once daily warfarin (Coumadin) 10 mg tablet Take 1.5 tablets (15 mg) by mouth once daily. 09/23/2024 Active Start: 09-06-2023 End: 11-01-2024 Warfarin 10 mg tablet Discon tinued 15 mg PO DAILY 45 0 November 13, 2023 10:18am January 11, 2024 12:33pm Start: 06-04-2023 End: 09-06-2023 take 1 tablet by mouth once daily Warfarin 10 mg tablet Discontinued 10 mg PO DAILY 30 June 04, 2023 1:00am September 06, 2023 2:06pm Start: 03-14-2023 End: 07-18-2023 take 1 tablet by mouth once daily Warfarin 5 mg tablet Discontinued 5 mg PO DAILY 30 April 23, 2023 1:00am July 18, 2023 3:00pm Start: 02-09-2023 End: 03-14-2023 take 3 tablets by mouth once daily Warfarin 5 mg tablet Discontinued 15 mg PO DAILY 90 0 March 013 1:00am March 14, 2023 4:52pm Start: 02-09-2023 End: 03-14-2023 take 15 mg by mouth once daily Warfarin Discontinued 1 5 MG PO DAILY March 01, 2023 1:00am March 14, 2023 4:52pm Completed/Discontinued Medications Medication Drug Class(es) Dates Sig (Normalized) Sig (Original) acetaminophen 325 mg / HYDROcodone bitartrate 5 mg oral tablet (20 sources) Opioid Agonist Start: 02-28-2024 End: 03-07-2024 Hydrocodone-Acetami nophen 5-325 mg tablet Discontinued 1 {tbl} PO EVERY 6 HOURS NEEDED as needed for Pain 10 3 0 February 28, 2024 March 07, 2024 3:12pm Contusion of left wrist, initial encounter Contusion of left wrist, initial encounter Start: 08-26-2023 End: 10-20-2023 Hydrocodone-Acetaminophen 5- 325 mg tablet Discontinued 1 {tbl} PO TWICE A DAY August 26, 2023 12:00am October 20, 2023 10:40am Start: 04-23-2023 End: 05-14-2023 Hydrocodone-Acetaminophen 5- 325 mg tablet Discontinued 1 {tbl} PO EVERY 4 HOURS NEEDED as needed for Pain 10 2 0 April 23, 2023 May 14, 2023 5:04pm Contusion of back Contusion of unspecified back wall of thorax, initial encounter Start: 04-23-2023 End: 05-14-2023 take 1 tablet by mouth every four hours as needed Hydrocodone-Acetaminophen Discontinued 1 TABLET PO EVERY 4 HOURS NEEDED 10 2 April 23, 2023 May 14, 2023 5:04pm Start: 03-01-2023 End: 04-23-2023 Hydrocodone-Acetaminophen 5- 325 mg tablet Discontinued 1 {tbl} PO EVERY 6 HOURS NEEDED as needed for Pain 12 3 0 March 14, 2023 April 23, 2023 1:16pm Low back pain Fall on same level from slipping, tripping or stumbling Diabetic neuropathy Low back pain, unspecified Type 2 diabetes mellitus with diabetic neuropathy, unspecified Start: 03-01-2023 End: 04-23-2023 take 1 tablet by mouth every six hours as needed Hydrocodone-Acetaminophen Discontinued 1 TABLET PO EVERY 6 HOURS NEEDED 12 3 March 14, 2023 April 23, 2023 1:16pm acetaminophen 325 mg / oxyCODONE hydrochloride 5 mg oral tablet (20 sources) Opioid Agonist Start: 07-12-2023 End: 08-26-2023 Oxycodone-Acetaminophen (Percocet) 5-325 mg tablet Discontinued 1 {tbl} PO EVERY 6 HOURS as needed for pain 12 3 0 July 12, 2023 August 26, 2023 10:41am Lumbar radiculopathy Radiculopathy, lumbar region Start: 02-09-2023 End: 02-28-2023 Oxycodone-Acetaminophen 5-32 5 mg tablet Discontinued 1 {tbl} PO EVERY 6 HOURS NEEDED as needed for Pain 16 4 0 February 09, 2023 February 28, 2023 9:37pm Neuropathic pain of upper extremity Neuralgia and neuritis, unspecified Start: 02-09-2023 End: 02-28-2023 take 1 tablet by mouth every six hours as needed Oxycodone-Acetaminophen Discontinued 1 TABLET PO EVERY 6 HOURS NEEDED 16 4 February 09, 2023 February 28, 2023 9:37pm amitriptyline hydrochloride 25 mg oral tablet (5 sources) Tricyclic Antidepressant Start: 09-06-2023 End: 11-01-2024 take 1 tablet by mouth at bedtime Amitriptyline 25 mg tablet Discontinued 25 mg PO AT BEDTIME September 06, 2023 12:00am November 01, 2024 3:25pm aspirin 81 mg delayed release oral tablet (20 sources) Platelet Aggregation Inhibitor, Nonsteroidal Anti-inflammatory Drug Start: 02-09-2023 End: 03-14-2023 Aspirin (Adult Low Dose Aspirin) 81 mg tablet,delayed release (DR/EC) Discontinued 81 mg PO DAILY 30 30 0 March 14, 2023 4:52pm March 14, 2023 4:55pm atorvastatin 40 mg oral tablet (20 sources) HMG-CoA Reductase Inhibitor Start: 02-09-2023 End: 11-01-2024 take 1 tablet by mouth once daily Atorvastatin 40 mg tablet Discontinued 40 mg PO DAILY 30 30 0 March 14, 2023 4:55pm July 13, 2023 2:15pm cariprazine 1.5 mg oral capsule (5 sources) Atypical Antipsychotic Start: 12-06-2023 End: 11-01-2024 take 1 capsule by mouth once daily Cariprazine (Vraylar) 1.5 mg capsule Discontinued 1.5 mg PO daily December 06, 2023 12:00am November 01, 2024 3:26pm esomeprazole 20 mg delayed release oral capsule (20 sources) Proton Pump Inhibitor Start: 02-09-2023 End: 03-14-2023 take 1 capsule by mouth once daily Esomeprazole Magnesium (Nexium 24hr) 20 mg capsule,delayed release(DR/EC) Discontinued 20 mg PO DAILY 30 0 March 01, 2023 1:00am March 14, 2023 4:50pm eszopiclone 2 mg oral tablet (5 sources) Start: 12-06-2023 End: 11-01-2024 take 1 tablet by mouth at bedtime Eszopiclone 2 mg tablet Discontinued 2 mg PO AT BEDTIME December 06, 2023 12:00am November 01, 2024 3:26pm fenofibrate 145 mg oral tablet (20 sources) Peroxisome Proliferator Receptor alpha Agonist Start: 09-06-2023 End: 11-01-2024 take 1 tablet by mouth once daily Fenofibrate Nanocrystallized 145 mg tablet Discontinued 145 mg PO DAILY 30 0 November 13, 2023 10:18am January 11, 2024 12:33pm 1 ml fentaNYL 0.05 mg/ml injection (2 sources) Opioid Agonist Start: 10-18-2024 End: 10-18-2024 50 mcg, intravenous, Once, On Mon10/18/24 at 1920, For 1 dose Insulin Glargine (9 sources) Insulin Analog Start: 03-15-2023 End: 05-14-2023 Insulin Glargine Discontinued 30 UNIT SC DAILY March 15, 2023 1:00am May 14, 2023 5:07pm Start: 03-15-2023 End: 05-14-2023 Insulin Glargine Discontinue d 30 UNIT SC DAILY March 15, 2023 12:00am May 14, 2023 4:07pm Start: 03-15-2023 Insulin Glargi ne Active 30 UNIT SC DAILY March 15, 2023 12:00am Insulin Glargine 100 unit/mL solution (5 sources) Start: 03-15-2023 End: 05-14-2023 Insulin Glargine 100 unit/mL solution Discontinued 30 U SC DAILY 10 March 15, 2023 1:00am May 14, 2023 5:07pm Start: 03-15-2023 End: 05-14-2023 Insulin Glargine 100 unit/mL solution Discontinued 30 U SC DAILY March 15, 2023 1:00am May 14, 2023 5:07pm Insulin Glargine-Yfgn 100 unit/mL (3 mL) insulin pen (10 sources) Start: 09-06-2023 End: 10-20-2023 Insulin Glargine-Yfgn 100 unit/mL (3 mL) insulin pen Discontinued 60 U SC TWICE DAILY WITH MEALS 15 September 06, 2023 10:32am October 20, 2023 10:41am Start: 09-06-2023 End: 10-20-2023 Insulin Glargine-Yfgn 100 un it/mL (3 mL) insulin pen Discontinued 60 U SC TWICE DAILY WITH MEALS 15 September 06, 2023 10:32am October 20, 2023 10:41am Start: 09-06-2023 End: 09-06-2023 Insulin Glargine-Yfgn 100 un it/mL (3 mL) insulin pen Discontinued 60 U SC TWICE DAILY WITH MEALS September 06, 2023 9:33am September 06, 2023 10:34am Insulin Glargine-Yfgn 100 unit/mL (3 mL) Insulin Pen (5 sources) Start: 05-15-2023 End: 09-06-2023 Insulin Glargine-Yfgn 100 unit/mL (3 mL) Insulin Pen Discontinued 35 U SC TWICE DAILY WITH MEALS 0 0 May 15, 2023 1:00am September 06, 2023 9:34am Start: 05-15-2023 End: 09-06-2023 Insulin Glargine-Yfgn 100 un it/mL (3 mL) Insulin Pen Discontinued 35 U SC TWICE DAILY WITH MEALS 0 May 15, 2023 1:00am September 06, 2023 9:34am 3 ml insulin lispro 200 unt/ml pen injector (20 sources) Insulin Analog Start: 11-02-2023 End: 08-15-2024 Insulin Lispro (Humalog Kwikpen Insulin) 200 unit/mL (3 mL) insulin pen Discontinued 350 U SC .continuous 52.5 5 August 15, 2024 3:25pm August 15, 2024 4:26pm Type 1 diabetes mellitus Type 1 diabetes mellitus with other diabetic kidney complication Proteinuria, unspecified Start: 09-27-2023 End: 03-07-2024 Insulin Lispro (Humalog U-10 0 Insulin) 100 unit/mL solution Discontinued 250 U continuous subcutaneous infusion .continuous 75 3 September 27, 2023 12:00am March 07, 2024 3:13pm Type 1 diabetes mellitus Type 1 diabetes mellitus with other diabetic kidney complication Proteinuria, unspecified Start: 09-06-2023 End: 11-02-2023 Insulin Lispro (Humalog Kwik pen Insulin) 100 unit/mL insulin pen Discontinued 40 U SC THREE TIMES A DAY 15 0 September 06, 2023 10:32am November 02, 2023 10:31am Start: 05-15-2023 End: 09-06-2023 Insulin Lispro (Humalog Kwik pen Insulin) 100 unit/mL insulin pen Discontinued 35 U SC THREE TIMES A DAY 15 0 May 15, 2023 1:00am September 06, 2023 9:34am Start: 04-23-2023 End: 05-14-2023 Insulin Lispro (Humalog U-10 0 Insulin) 100 unit/mL solution Discontinued 30 U SC THREE TIMES A DAY April 23, 2023 1:00am May 14, 2023 5:07pm Start: 03-15-2023 End: 04-23-2023 Insulin Lispro (Humalog U-10 0 Insulin) 100 unit/mL solution Discontinued 10 U SC THREE TIMES A DAY 10 0 March 15, 2023 1:00am April 23, 2023 1:16pm Start: 03-01-2023 End: 03-14-2023 Insulin Lispro 100 unit/mL i nsulin pen Discontinued 10 U SC THREE TIMES A DAY 15 0 March 01, 2023 1:00am March 14, 2023 11:33am follow your sliding scale Start: 02-28-2023 End: 03-14-2023 Insulin Lispro (Humalog U-10 0 Insulin) 100 unit/mL cartridge Discontinued 1 - 100 U SC DAILY February 28, 2023 1:00am March 14, 2023 11:33am Start: 02-28-2023 End: 03-14-2023 Insulin Lispro (Humalog U-10 0 Insulin) 100 unit/mL cartridge Discontinued 1 - 100 UNIT SC DAILY February 28, 2023 1:00am March 14, 2023 11:33am iohexol (OMNIPaque) 350 mg iodine/mL solution 90 mL (1 source) Start: 10-18-2024 End: 10-18-2024 90 mL, intravenous, Once in imaging, Starting on Mon10/18/24 at 1731, For 1 dose 1 ml ketorolac tromethamine 30 mg/ml injection (1 source) Nonsteroidal Anti-inflammatory Drug, Cyclooxygenase Inhibitor Start: 10-18-2024 End: 10-18-2024 15 mg, intravenous, Once, On Mon10/18/24 at 1440, For 1 dose 24 hr metoprolol succinate 100 mg extended release oral tablet (20 sources) beta-Adrenergic Hector Start: 02-09-2023 End: 11-01-2024 take 1 tablet by mouth once daily Metoprolol Succinate (Toprol Xl) 100 mg tablet extended release 24 hr Discontinued 100 mg PO DAILY 30 30 0 March 14, 2023 4:55pm July 13, 2023 2:15pm mirtazapine 7.5 mg oral tablet (6 sources) Start: 07-14-2023 End: 09-06-2023 take 1 tablet by mouth at bedtime Mirtazapine 7.5 mg tablet Discontinued 7.5 mg PO AT BEDTIME 30 0 July 14, 2023 12:00am September 06, 2023 10:29am pantoprazole 40 mg delayed release oral tablet (20 sources) Proton Pump Inhibitor Start: 09-07-2023 End: 10-14-2024 take 1 tablet by mouth twice daily Pantoprazole (Protonix) 40 mg tablet,delayed release (DR/EC) Discontinued 40 mg PO TWICE A DAY 60 0 December 18, 2023 7:54am January 11, 2024 12:33pm Start: 09-07-2023 End: 09-07-2023 take 1 tablet by mouth once daily Pantoprazole (Protonix) 40 mg tablet,delayed release (DR/EC) Discontinued 40 mg PO DAILY 30 1 September 07, 2023 12:00am September 07, 2023 12:54pm Start: 05-14-2023 End: 09-07-2023 take 40 mg by mouth twice daily Pantoprazole [address] for susp in packet Discontinued 40 mg PO TWICE A DAY 60 1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 confirmed 5 rights. IV patency 18:48 11/07/2024 mg (NOW x1) established. IV site checked: no pain, redness, or swelling. IV Mili Garibay R.N. flushed thoroughly pre-medication administration. Information Scanned reviewed with patient including reason for taking this medication, signs of allergic reaction and precautions. Verbalizes understanding. Medication Wastage: 5 mg wasted. - 18:51 Mili Garibay R.N. 2 of 2 [facility] ED NURSES CLINICAL NOTEon ED NURSES CLINICAL NOTE Nurse Narrative - CORBYVENANCIO Brady, : 1985, , Nurse Clinical Narrative [address] [place] [address] [phone] 11/07/2024 17:24:00 Patient: VENANCIO FOREMAN Sex: Female : 1985 Age: 39y Disposition: Discharge to Home Disposition Decision Time: 18:47 11/07/2024 Departure Time: 19:02 11/07/2024 TRIAGE Arrived by private vehicle. Historian: (patient). Accompanied by family. Primary physician (Terrance). Triage time: 17:26 11/07/2024. Acuity: LEVEL 3. Chief Complaint: ABDOMINAL PAIN and NAUSEA. Onset. (3 days). The patient has had nausea and abdominal pain. The pain is described as located in the LLQ. SEPSIS SCREEN: NEGATIVE. SIRS criteria negative. No possible sources of infection. -- 17:28 11/07/24 EDT Jv Szymanski R.N. 17:28 11/07/24. BP: 162/84 MAP: 110. HR: 90. RR: 18. O2 saturation: 96% Temperature: 97.6 F. Pain level now 6/10. -- 17:11/07/24 EDT Jv Szymanski R.N. Measurements: 17:28 11/07/24 Wt: 77.1 kg, Ht/Manny: 66.0 in, BMI: 27.44 -- 17:11/07/24 EDT Jv Szymanski R.N. Medications: atorvastatin 40 mg tablet -- 18:16 11/07/24 EDT Jv Szymanski R.N. cilostazol 100 mg tablet -- 18:16 11/07/24 EDT Jv Szymanski R.N. warfarin 10 mg tablet -- 18:16 11/07/24 EDT Jv Szymanski R.N. tramadol 50 mg tablet -- 18:16 11/07/24 EDT Jv Szymanski R.N. 1 of 5 Nurse Narrative - VENANCIO FOREMAN, : 1985, , losartan 25 mg tablet -- 18:16 11/07/24 RENATE Szymanski R.N. levothyroxine 112 mcg tablet -- 18:16 11/07/24 RENATE Szymanski R.N. fenofibrate nanocrystallized 145 mg tablet -- 18:16 11/07/24 RENATE Szymanski R.N. pantoprazole 40 mg tablet,delayed release -- 18:16 11/07/24 RENATE Szymanski R.N. pregabalin 150 mg capsule -- 18:16 11/07/24 RENATE Szymanski R.N. Humalog KwikPen U-200 Insulin 200 unit/mL (3 mL) subcutaneous -- 18:16 11/07/24 RENATE Szymanski R.N. warfarin 10 mg tablet: 15 mg once a day. Stopped 11/07/2024. -- 18:16 11/07/24 RENATE Szymanski R.N. Humalog U-100 Insulin 100 unit/mL subcutaneous cartridge: 1 sliding scale dose. Stopped 11/07/2024. -- 18:16 11/07/24 RENATE Szymanski R.N. fenofibrate 120 mg tablet: 120 mg once a day. Stopped 11/07/2024. -- 18:16 11/07/24 RENATE Szymanski R.N. lovastatin oral: Stopped 11/07/2024. -- 18:16 11/07/24 RENATE Szymanski R.N. levothyroxine 112 mcg tablet: 112 mcg once a day. Stopped 11/07/2024. -- 18:16 11/07/24 RENATE Szymanski R.N. levothyroxine 112 mcg tablet: 112 mcg once a day. Stopped 11/07/2024. -- 18:16 11/07/24 RENATE Szymanski R.N. lovastatin oral m mg once a day. Stopped 11/07/2024. -- 18:16 11/07/24 RENATE Szymanski R.N. metoprolol tartrate 50 mg tablet: 50 mg once a day. Stopped 11/07/2024. -- 18:16 11/07/24 RENATE Szymanski R.N. warfarin 10 mg tablet: 15 mg once a day. Stopped 11/07/2024. -- 18:16 11/07/24 RENATE Szymanski R.N. fenofibrate 120 mg tablet: 120 mg once a day. Stopped 11/07/2024. -- 18:16 11/07/24 RENATE Szymanski R.N. Humalog U-100 Insulin 100 unit/mL subcutaneous cartridge: 1 sliding scale dose. Stopped 11/07/2024. (Insulin pump) -- 18:16 11/07/24 RENATE Szymanski R.N. Ambien 10 mg tablet: 10 mg once a day. Stopped 11/07/2024. -- 18:16 11/07/24 RENATE Szymanski R.N. levothyroxine 112 mcg tablet: 112 mcg once a day. Stopped 11/07/2024. -- 18:16 11/07/24 RENATE Szymanski R.N. lovastatin oral m mg once a day. Stopped 11/07/2024. -- 18:16 11/07/24 RENATE Szymanski R.N. metoprolol tartrate 50 mg tablet: 50 mg once a day. Stopped 11/07/2024. -- 18:16 11/07/24 RENATE Szymanski R.N. warfarin 10 mg tablet: 15 mg once a day. Stopped 11/07/2024. -- 18:16 11/07/24 RENATE Szymanski R.N. fenofibrate 120 mg tablet: 120 mg once a day. Stopped 11/07/2024. -- 18:16 11/07/24 RENATE Szymanski R.N. Humalog U-100 Insulin 100 unit/mL subcutaneous cartridge: 1 sliding scale dose. Stopped 11/07/2024. (Insulin pump) -- 18:16 11/07/24 RENATE Szymanski R.N. Allergies: morphine: Side Effect; rash -- 17:27 11/07/24 RENATE Szymanski R.N. orange -- 17:27 11/07/24 RENATE Szymanski R.N. Problems: Hypertension -- 17:27 11/07/24 EDT Jv Szymanski R.N. Diabetes Mellitus Type 1 -- 17:11/07/24 EDT Jv Szymanski R.N. Hyperlipidemia -- 17:11/07/24 EDT Jv Szymanski R.N. Tachycardia -- 17:11/07/24 EDT Jv Szymanski R.N. 2 of 5 Nurse Narrative - VENANCIO FOREMAN, : 1985, , Hyperthyroidism -- 17:11/07/24 EDT Jv Szymanski R.N. Surgeries: . x3 -- 17:11/07/24 CHERYLT Jv Szymanski R.N. Amputation Below Knee -- 17:11/07/24 CHERYLT Jv Szymanski R.N. Angioplasty of vein. for blood clot -- 17:11/07/24 CHERYLT Jv Szymanski R.N. Tubal Ligation -- 17:11/07/24 CHERYLT Jv Szymanski R.N. History 17:11/07/24. SOCIAL HX: Heavy tobacco smoker (cigarette)- 1 pack per day. No alcohol use or drug use. The patient has not traveled outs (more content not included)... [facility] ED ORDER SHEET (CPOE ONLY)on 11-07-2024 ED ORDER SHEET (CPOE ONLY) Order Sheet - VENANCIO FOREMAN, : 1985, , [place] [address] [id number] 11/07/2024 Patient: VENANCIO FOREMNA Sex: Female : 1985 Age: 39y MEASUREMENTS: Wt: 77.1 kg, Ht/Manny: 66.0 in, BMI: 27.44 ALLERGIES: morphine, orange MEDICATION/IV/DRIP/FLU ID ORDERS Order Description Priority Entered Acknowledged Completed Zofran IVP4 mg (NOW x1) 17:26 11/07/2024 17:44 Pavel Qureshi, 11/07/2024 Sam Garibay R.N. MORPHine IVP4 mg (NOW x1, 17:26 11/07/2024 Cancelled: Allergy HIGH ALERT MEDICATION) Pavel Qureshi, 17:43 EDT Pavel Qureshi D.O. D.O. KetorOLAC (Toradol) IVP15 mg 17:43 11/07/2024 Cancelled: Patient Refusal (NOW x1) Pavel Qureshi, 17:46 EDT Pavel Qureshi D.O. D.O. Bentyl IM20 mg (NOW x1) 17:46 11/07/2024 18:08 Pavel Qureshi, 11/07/2024 Sam Garibay R.N. 1 of 3 Order Sheet - VENANCIO FOREMAN, : 1985, , HYDROmorphone (Dilaudid) 18:30 11/07/2024 18:36 IVP0.5 mg (NOW x1, HIGH Pavel Qureshi, 11/07/2024 ALERT MEDICATION) Sam Garibay R.N. Reason for ordering with alerts: Benefits outweigh risks --18:30 11/07/2024 Pavel Qureshi D.O. Prochlorperazine (Compazine) 18:44 11/07/2024 18:51 IVP5 mg (NOW x1) Pavel Qureshi, 11/07/2024 Sam Garibay R.N. Reason for ordering with alerts: Benefits outweigh risks --18:44 11/07/2024 Pavel Qureshi D.O. LAB ORDERS Order Description Priority Entered Acknowledged Collected Completed CBC w Diff Stat Stat 17:26 11/07/2024 17:47 11/07/2024 17:54 11/07/2024 Mili Abdullahi Lemasters, D.O. R.N. R.NAd CMP Stat Stat 17:26 11/07/2024 17:47 11/07/2024 17:54 11/07/2024 Mili Abdullahi Lemasters, D.O. R.N. R.N. Lipase Stat Stat 17:26 11/07/2024 17:47 11/07/2024 17:55 11/07/2024 Mili Abdullahi Lemasters, D.O. R.NAd RAdNAd Urinalysis Stat Stat 17:26 11/07/2024 17:47 11/07/2024 17:55 11/07/2024 Mili Abdullahi Lemasters, D.O. R.NAd RAdNAd DIAGNOSTIC STUDY ORDERS 2 of 3 Order Sheet - VENANCIO FOREMAN, : 1985, , Order Description Priority Entered Acknowledged Completed CT ABD/PEL w Cont Stat Stat 17:26 11/07/2024 17:47 17:55 Pavel Qureshi, 11/07/2024 11/07/2024 Mili Chan R.N. R.N. Order Comments: 17:26 11/07/2024: Status: Not . Pavel Qureshi D.O. Reason for Study: Abdominal Pain STAFF ORDERS Order Description Priority Entered Acknowledged Collected Completed IV Saline Lock 17:26 11/07/2024 17:47 11/07/2024 17:55 11/07/2024 Mili Abdullahi Lemasters, D.O. R.N. RAdNAd [Electronically signed by Pavel Qureshi D.O. (11/07/2024 18:49 EDT)] 3 of 3 [facility] ED PHYSICIAN CLINICAL REPORT on 11-07-2024 ED PHYSICIAN CLINICAL REPORT Narrative - VENANCIO FOREMAN, : 1985, , Physician Clinical Narrative [address] [address] [id number] 11/07/2024 17:24:00 Patient: VENANCIO FOREMAN Sex: Female : 1985 Age: 39y Disposition: Discharge Disposition Decision Time: 18:47 11/07/2024 Measurements Wt: 77.1 kg, Ht/Manny: 66.0 in, BMI: 27.44 Initial Vital Sign Measured Time BP MAP HR RR O2Sat ETCO2 Temp Pain GCS RTS 17:28 11/07/2024 162/84 110 90 18 96% 97.6 F 6 Time Seen: 17:22 11/07/2024. Arrived- By private vehicle. Historian- patient. Independent historian- family. HISTORY OF PRESENT ILLNESS Chief Complaint: ABDOMINAL PAIN. It is described as sharp and it is described as located in the right upper quadrant and left lower quadrant. This started 3 days ago. (Patient presents with left lower quadrant pain that began 3 days ago. Intermittent. Sharp in nature. States that she was feeling ill today which prompted her visit to the emergency department. Denies any vomiting but admits to nausea. Denies any urinary symptoms. Last menstrual period 1 week ago. History of tubal ligation. History of cholecystectomy.). REVIEW OF SYSTEMS CONSTITUTIONAL: No fever or chills. : No difficulty with urination, pain with urination or urinary frequency. Status: Not . 10 Blake - VENANCIO FOREMAN, : 1985, , PAST HISTORY Diabetes Mellitus Type 1 Hyperlipidemia Hypertension Hyperthyroidism Tachycardia Surgeries: Amputation Below Knee Angioplasty of vein: (for blood clot) : (x3) Tubal Ligation Medications: Ambien 10 mg tablet: 10 mg once a day. Stopped 11/07/2024. atorvastatin 40 mg tablet cilostazol 100 mg tablet fenofibrate 120 mg tablet: 120 mg once a day. Stopped 11/07/2024. fenofibrate 120 mg tablet: 120 mg once a day. Stopped 11/07/2024. fenofibrate 120 mg tablet: 120 mg once a day. Stopped 11/07/2024. fenofibrate nanocrystallized 145 mg tablet Humalog KwikPen U-200 Insulin 200 unit/mL (3 mL) subcutaneous Humalog U-100 Insulin 100 unit/mL subcutaneous cartridge: 1 sliding scale dose. Stopped 11/07/2024. Humalog U-100 Insulin 100 unit/mL subcutaneous cartridge: 1 sliding scale dose. Stopped 11/07/2024. (Insulin pump) Humalog U-100 Insulin 100 unit/mL subcutaneous cartridge: 1 sliding scale dose. Stopped 11/07/2024. (Insulin pump) levothyroxine 112 mcg tablet levothyroxine 112 mcg tablet: 112 mcg once a day. Stopped 11/07/2024. levothyroxine 112 mcg tablet: 112 mcg once a day. Stopped 11/07/2024. levothyroxine 112 mcg tablet: 112 mcg once a day. Stopped 11/07/2024. losartan 25 mg tablet lovastatin oral m mg once a day. Stopped 11/07/2024. lovastatin oral m mg once a day. Stopped 11/07/2024. lovastatin oral: Stopped 11/07/2024. metoprolol tartrate 50 mg tablet: 50 mg once a day. Stopped 11/07/2024. 2 of 10 VENANCIO Escamilla, : 1985, , metoprolol tartrate 50 mg tablet: 50 mg once a day. Stopped 11/07/2024. pantoprazole 40 mg tablet,delayed release pregabalin 150 mg capsule tramadol 50 mg tablet warfarin 10 mg tablet warfarin 10 mg tablet: 15 mg once a day. Stopped 11/07/2024. warfarin 10 mg tablet: 15 mg once a day. Stopped 11/07/2024. warfarin 10 mg tablet: 15 mg once a day. Stopped 11/07/2024. Allergies: morphine: Side Effect; rash orange SOCIAL HISTORY No alcohol use or drug use. ADDITIONAL NOTES The nursing notes have been reviewed. PHYSICAL EXAM Vital Signs: Have been reviewed. Appearance: Alert. No acute distress. ENT: Pharynx normal. Neck: Normal inspection. Neck supple. CVS: Normal heart rate and rhythm. Heart sounds normal. Pulses normal. Respiratory: No respiratory distress. Breath sounds normal. Abdomen: Soft. Tenderness in the right upper quadrant and left lower quadrant. Skin: Skin warm and dry. Normal skin color. Extremities: No lower extremity edema. LABS, X-RAYS, AND EKG Laboratory Tests: CBC + DIFF 3 of 10 VENANCIO Escamilla, : 1985, , Final VIN: 11/07/2024 17:39:00 EDT MsgRcvd: 11/07/2024 18:06 EDT Lab Test Result Reference Status Received 11/07/2024 18:06 CBC + DIFF Final EDT CBC-COMPLETE BLOOD COUNT 14.1 x 10/UL 11/07/2024 18:06 WBC 4.5 - 10.8 Final Above high normal EDT 5.34 x 10/UL 11/07/2024 18:06 RBC 4.10 - 5.30 Final Above high normal EDT 11/07/2024 18:06 HEMOGLOBIN 14.4 g/dl 12.0 - 16.0 Final EDT 11/07/2024 18:06 HEMATOCRIT 41.9 % 34.0 - 46.0 Final EDT 78 fl 11/07/2024 18:06 MCV 80 - 99 Final Below low normal EDT 11/07/2024 18:06 MCH 27 pg 27 - 33 Final EDT 11/07/2024 18:06 MCHC 34 X10 3 32 - 36 Final EDT (more content not included)... [facility] ED SUPER BILLon 11-07-2024 ED SUPER BILL [facility] VENANCIO FOREMAN, : 1985, , [place] [address] [id number] 11/07/2024 Patient: VENANCIO FOREMAN N Sex: Female : 1985 Age: 39y Item Facility Professional Category Description Code Code Quantity Fee Total Nurse/E/M EMERGENCY 812908 1 $0.00 $0.00 DEPARTMENT VISIT HIGH/URGENT SEVERITY (49165-07) Nurse/IV/IM/Infusions IM/SQ (15819) 399335 1 $0.00 $0.00 Nurse/IV/IM/Infusions IVP additional 931504 2 $0.00 $0.00 push (77144) Nurse/IV/IM/Infusions IVP initial 462077 1 $0.00 $0.00 (94559) Grand Total $0.00 Providers Pavel Qureshi D.O. Chief Complaint ABDOMINAL PAIN. 1 of 2 [facility] CORBYVENANCIO Brady, : 1985, , Principal Diagnosis Abdominal pain of unknown cause. ICD-10 Codes R10.9: Unspecified abdominal pain 2 of 2 [facility] ED VISIT SUMMARYon ED VISIT SUMMARY Visit Overview - VENANCIO FOREMAN, : 1985, , [place] [address] [id number] 11/07/2024 Patient: VENANCIO FOREMAN N Sex: Female : 1985 Age: 39y 11/07/2024 10:36 PM EDT ED Arrival:17:24 11/07/2024 EDT Status:not Recent Travel:no Language:eng Adv Directive:No Isolation Status: Ethnicity:N Fall Risk:no risk Infectious Disease Exposure:no Measurements:5'6 / 167.6 Self-Harm Status:risk Sepsis Screen:negative cm 170.0 lb / 77.1 kg Chief Complaint:ABDOMINAL PAIN, NAUSEA, (3 days), and (Carlos) ALLERGIES morphine - rash orange HOME MEDICATIONS Ambien 10 mg tablet: 10 mg once a day. Stopped 11/07/2024. atorvastatin 40 mg tablet cilostazol 100 mg tablet fenofibrate 120 mg tablet: 120 mg once a day. Stopped 11/07/2024. fenofibrate 120 mg tablet: 120 mg once a day. Stopped 11/07/2024. 1 of 4 Visit Overview - VENANCIO FOREMAN, : 1985, , fenofibrate 120 mg tablet: 120 mg once a day. Stopped 11/07/2024. fenofibrate nanocrystallized 145 mg tablet Humalog KwikPen U-200 Insulin 200 unit/mL (3 mL) subcutaneous Humalog U-100 Insulin 100 unit/mL subcutaneous cartridge: 1 sliding scale dose. Stopped 11/07/2024. Humalog U-100 Insulin 100 unit/mL subcutaneous cartridge: 1 sliding scale dose. Stopped 11/07/2024. (Insulin pump) Humalog U-100 Insulin 100 unit/mL subcutaneous cartridge: 1 sliding scale dose. Stopped 11/07/2024. (Insulin pump) levothyroxine 112 mcg tablet levothyroxine 112 mcg tablet: 112 mcg once a day. Stopped 11/07/2024. levothyroxine 112 mcg tablet: 112 mcg once a day. Stopped 11/07/2024. levothyroxine 112 mcg tablet: 112 mcg once a day. Stopped 11/07/2024. losartan 25 mg tablet lovastatin oral: Stopped 11/07/2024. lovastatin oral m mg once a day. Stopped 11/07/2024. lovastatin oral m mg once a day. Stopped 11/07/2024. metoprolol tartrate 50 mg tablet: 50 mg once a day. Stopped 11/07/2024. metoprolol tartrate 50 mg tablet: 50 mg once a day. Stopped 11/07/2024. pantoprazole 40 mg tablet,delayed release pregabalin 150 mg capsule tramadol 50 mg tablet warfarin 10 mg tablet warfarin 10 mg tablet: 15 mg once a day. Stopped 11/07/2024. warfarin 10 mg tablet: 15 mg once a day. Stopped 11/07/2024. warfarin 10 mg tablet: 15 mg once a day. Stopped 11/07/2024. PAST MEDICAL HISTORY / PROBLEMS Diabetes Mellitus Type 1 Hyperlipidemia Hypertension Hyperthyroidism Tachycardia PAST SURGICAL HISTORY Amputation Below Knee Angioplasty of vein. for blood clot 2 of 4 Visit Overview - VENANCIO FOREMAN, : 1985, , . x3 Tubal Ligation SOCIAL HISTORY Smoking status: Yes Alcohol use: No Drug use: No ED COURSE MEDICATIONS GIVEN IN EMERGENCY DEPARTMENT 17:42 11/07/24 Zofran IVP 4 mg 18:05 11/07/24 Bentyl IM 20 mg 18:33 11/07/24 HYDROmorphone (Dilaudid) IVP 0.5 mg 18:48 11/07/24 Prochlorperazine (Compazine) IVP 5 mg IV SITE INFORMATION INTAKE OUTPUT REASSESMENT (most recent) 17:43 11/07/24. Ambulatory to room. Patient gowned. ( LLQ pain that radiates to her back X3 days). GENERAL / NEURO / PSYCH: Alert. Oriented X 4. Appears in no acute distress. RESPIRATORY: Respirations not labored. Breath sounds within normal limits. CVS: Normal sinus rhythm noted. Capillary refill less than 2 seconds. GI / : The patient has had nausea. Abdomen soft. Abdominal tenderness in the left lower quadrant (radiating to back). Bowel sounds within normal limits. No emesis noted. Vaginal bleeding. Vaginal discharge. No blood in the stool. SKIN: Skin is warm and dry. VITAL SIGNS First Vitals Last Vitals Temp 17:28 11/07/24 97.6 F Temp 18:56 11/07/24 BP 17:28 11/07/24 162/84 BP 18:56 11/07/24 125/66 HR 17:28 11/07/24 90 HR 18:56 11/07/24 82 RR 17:28 11/07/24 18 RR 18:56 11/07/24 O2 Sat 17:28 11/07/24 96% O2 Sat 18:56 11/07/24 3 of 4 Visit Overview - CORBYVENANCIO Brady, : 1985, , First Vitals Last Vitals Pain 17:28 11/07/24 6 Pain 18:56 11/07/24 ETCO2 17:28 11/07/24 ETCO2 18:56 11/07/24 GCS 17:28 11/07/24 GCS 18:56 11/07/24 RTS 17:28 11/07/24 RTS 18:56 11/07/24 PROCEDURES NURSING INTERVENTIONS LABS / STUDIES LABS / STUDIES ORDERED CBC w Diff CMP CT ABD/PEL w Cont Lipase Urinalysis CLINICAL IMPRESSION ABDOMINAL PAIN OF UNKNOWN CAUSE 4 of 4 [facility] ED VITALS FLOW SHEETon 11-07 ED VITALS FLOW SHEET Vitals - VENANCIO FOREMAN, : 1985, , Vital Sign Flow Sheet [address] [place] [address] [id number] 11/07/2024 Patient: VENANCIO FOREMAN N Sex: Female : 1985 Age: 39y Measurements Wt: 77.1 kg, Ht/Manny: 66.0 in, BMI: 27.44 Measured Time BP MAP HR RR O2Sat ETCO2 Temp Pain GCS RTS 18:56 11/07/2024 125/66 77 82 18:55 11/07/2024 16 3 18:53 11/07/2024 85 99% 18:48 11/07/2024 79 96% 18:43 11/07/2024 80 98% 18:42 11/07/2024 119/59 79 80 18:38 11/07/2024 83 97% 18:33 11/07/2024 88 99% 18:28 11/07/2024 84 100% 18:26 11/07/2024 134/68 90 84 18:23 11/07/2024 83 90% 18:18 11/07/2024 82 97% 18:13 11/07/2024 81 97% 18:11 11/07/2024 131/61 73 83 18:08 11/07/2024 87 96% 1 of 2 Vitals - VENANCIO FOREMAN, : 1985, , Measured Time BP MAP HR RR O2Sat ETCO2 Temp Pain GCS RTS 18:03 11/07/2024 93 97% 17:28 11/07/2024 162/84 110 90 18 96% 97.6 F 6 2 of 2 [facility] LIPASEon 11-07-2024 Lipase [Catalytic activity/Vol] 15.0 U/L Normal 15.0 - 78.0 [facility] Comment on above: Result Comment: *PLE ASE NOTE THAT RANGES FOR LIPASE HAVE CHANGED OF 03/31/23 DUE TO AN ASSAY UPDATE BY THE DESPATCHING AND RECEIVING CLERK.THE NEW ASSAY RANGE IS 6-250 U/L, WITH A REFERENCE RANGE OF 16-77 U/L. Performed By: #### 2 [id number] #### [facility],[address] [place] [address] URINALYSISon 11-07-2024 Bilirubin Ql (U) Negative Normal NORMAL: NEGATIVE [facility] Comment on above: Performed By: #### 2 [id number] #### [facility],[address] [place] [address] Clarity (U) clear Normal NORMAL: CLEAR [facility] Comment on above: Performed By: #### 2 [id number] #### [facility],[address] [place] [address]1952 Color (U) shanda Normal NORMAL: YELLOW [facility] Comment on above: Performed By: #### 2 [id number] #### [facility],[address] [place] [address] Glucose Ql (U) NORM Normal NORMAL: NORMAL [facility] Comment on above: Performed By: #### 2 [id number] #### [facility],[address] [place] [address] 14245 Hemoglobin Ql (U) Negative Normal NORMAL: NEGATIVE [facility] Comment on above: Performed By: #### 2 [id number] #### [facility],[address] [place] [address] 21379 Ketone Negative Normal NORMAL: NEGATIVE [facility] Comment on above: Performed By: #### 2 [id number] #### [facility],[address] [place] [address] 60076 Leukocytes Negative Normal NORMAL: NEGATIVE [facility] Comment on above: Performed By: #### 2 [id number] #### [facility],[address] [place] [address] 91443 Nitrite Ql (U) Negative Normal NORMAL: NEGATIVE [facility] Comment on above: Performed By: #### 2 [id number] #### [facility],[address] [place] [address] 35255 pH (U) 7 [pH] Normal NORMAL: 5.0-8.0 [facility] Comment on above: Performed By: #### 2 [id number] #### [facility],[address] [place] [address] 96777 Protein Ql (U) 15 Abnormal NORMAL: NEGATIVE [facility] Comment on above: Performed By: #### 2 [id number] #### [facility],[address] [place] [address] Sp Margaret 1.010 Normal NORMAL: 1.010-1.030 [facility] Comment on above: Performed By: #### 2 [id number] #### [facility],[address] [place] [address] Specimen Type R Normal [facility] Comment on above: Performed By: #### 2 [id number] #### [facility],[address] [place] [address] Urinalysis dipstick W Reflex Microscopic panel (U) NOT INDICATED Normal [facility] Comment on above: Performed By: #### 2 [id number] #### [facility],[address] [place] [address] Urobilinog 1 Abnormal NORMAL: NORMAL [facility] Comment on above: Performed By: #### 2 [id number] #### [facility],[address] [place] [address] Internal Medicine Office Vis [facility] 11-01-2024 Internal Medicine Office Visit [facility] [address] [place] [address] OFFICE VISIT Date of Service: 11/01/24 MR#: [id number] Acct: [id number] Name: VENANCIO FOREMAN Rep #: [id number] : 1985 Provider: CASEY Morrissey Age/Sex: 39/F Location: [email or web address] Status: Signed Intake Vital Signs 08/30/24 17:38 10/29/24 12:04 11/01/24 11:12 Height 5 ft 6 in 5 ft 6 in 5 ft 6 in Weight: 170 lb BMI 27.4 BP 124/74 H Blood Pressure Location Lt brachial Position Sitting Respiration 16 Pulse 79 Pulse Source Monitor Temp 97.0 F L Temp Source Temporal Pulse Oximetry (%) 97 Oxygen Delivery Method room air Intake Visit Reasons: ACUTE 3 M FU/MED REFILLS Chief Complaint: 3 M FU Lubricating Specialist Required: No Accompanied by: Is patient in pain?: No Allergies morphine Allergy (Intermediate, Verified 11/01/24 11:09) Rash orange Allergy (Verified 11/01/24 11:09) Rash Medications ???Medication ???Instructions ???Recorded ???Confirmed ???Type aspirin 81 mg tablet,delayed 81 mg PO DAILY 30 days #30 tabs 11/01/24 Rx release (Adult Low Dose Aspirin) insulin syr/ndl U100 half jesús 0.3 #100 ea 03/14/23 11/01/24 Rx mL 30 gauge x 1/2 metoprolol succinate 100 mg 100 mg PO DAILY 30 days #30 tabs 0 07/13/23 11/01/24 Rx tablet,extended release 24 hr (Toprol XL) pen needle, diabetic 32 gauge x #1,200 ea 07/13/23 11/01/24 Rx 5/32 (BD Ultra-Fine Elyssa Pen Needle) blood sugar diagnostic (OneTouch #100 ea 07/17/23 11/01/24 Rx Verio test strips) blood-glucose meter (OneTouch #1 ea 07/17/23 11/01/24 Rx Verio Flex Meter) lancets 30 gauge (Onetouch Delica #200 ea 07/17/23 11/01/24 Rx Safety Lancet) amitriptyline 25 mg tablet 25 mg PO QHS 09/06/23 11/01/24 His tory desvenlafaxine succinate 25 mg 25 mg PO DAILY #30 tabs 09/06/23 0 11/01/24 Rx tablet,extended release 24 hr (Pristiq) Guardian 4 Glucose Sensor #10 ea 11/02/23 11/01/24 Rx (blood-glucose sensor) blood-glucose transmitter #1 ea 11/15/23 11/01/24 Rx (Guardian 4 Transmitter device) cariprazine 1.5 mg capsule 1.5 mg PO QDAY 12/06/23 11/01/24 H istory (Vraylar) eszopiclone 2 mg tablet 2 mg PO QHS 12/06/23 11/01/24 Hist ory pregabalin 300 mg capsule 300 mg PO BID 01/11/24 11/01/24 Hi story blood pressure monitor #1 ea 07/15/24 11/01/24 Rx cilostazol 100 mg tablet 100 mg PO BID #60 tabs 07/15/24 Rx insulin lispro 200 unit/mL (3 mL) 350 unit (1.75 mL) subcut 5 11/01/24 Rx subcutaneous pen (Humalog KwikPen .continuous #52.5 mL U-200 Insulin) blood-glucose sensor (Guardian 4 #12 ea 09/30/24 11/01/24 Rx Glucose Sensor device) blood-glucose transmitter #1 ea 09/30/24 11/01/24 Rx (Guardian 4 Transmitter device) levothyroxine 112 mcg capsule 112 mcg PO DAILY #30 caps 10/11/24 11/01/24 Rx ondansetron 4 mg disintegrating 4 mg PO Q8H PRN nausea and 5 11/01/24 Rx tablet vomiting #30 tabs pantoprazole 40 mg tablet,delayed 40 mg PO BID #60 tabs 10/14/24 Rx release (Protonix) atorvastatin 40 mg tablet 40 mg PO DAILY 90 days #90 tabs 11/01/24 Rx fenofibrate nanocrystallized 145 145 mg PO DAILY #90 tabs 11/01/24 11/01/24 Rx mg tablet losartan 25 mg tablet 25 mg PO DAILY #90 tabs 11/01/24 0 11/01/24 Rx warfarin 10 mg tablet 10 mg PO DAILY #90 tabs 11/01/24 0 11/01/24 Rx Nurse's Note: 3 M FU. No concerns PFSH Medical History Xanthelasmatosis Abdominal pain Nausea, vomiting, and diarrhea DKA (diabetic ketoacidosis) Anemia Bipolar disorder Anxiety Depression GERD (gastroesophageal reflux disease) Former smoker Migraines Headache DVT (deep venous thrombosis) Chronic anticoagulation Type 1 diabetes mellitus Abnormal angiogram HTN (hypertension) Hyperlipidemia Surgical History H/O section History of revascularization procedure of lower extremity Hx of cholecystectomy History of intravascular stent placement Tubal ligation status History of below-knee amputation of left lower extremity S/P BKA (below knee amputation) unilateral Family History Father Hypertension Cancer lung Diabetes Mother Diabetes Hypertension Cancer bladder Dementia Social History household members: spouse and children housing: house current occupational status: disabled 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 Normal [facility] MR/BMSAnnette 11-01-2024 MR/BMS.BVS [facility] [address] [place] [address] OFFICE VISIT Date of Service: 11/01/24 MR#: [id number] Acct: [id number] Name: VENANCIO FOREMAN Rep #: [id number] : 1985 Provider: CASEY Orellana Age/Sex: 39/F Location: [facility] Status: Signed Intake Vital Signs 08/30/24 17:38 11/01/24 11:12 11/01/24 15:21 Height 5 ft 6 in 5 ft 6 in Weight: 171 lb BP 115/70 Blood Pressure Location Lt brachial Position Sitting Respiration 16 Pulse 78 Pulse Source Monitor Temp 98.2 F Temp Source Temporal Pulse Oximetry (%) 97 Oxygen Delivery Method room air Intake Visit Reasons: Rescheduled F/U Chief Complaint: 3 M FU Is patient in pain?: Yes Allergies morphine Allergy (Intermediate, Verified 11/01/24 15:20) Rash orange Allergy (Verified 11/01/24 15:20) Rash Medications ???Medication ???Instructions ???Recorded ???Confirmed ???Type aspirin 81 mg tablet,delayed 81 mg PO DAILY 30 days #30 tabs 11/01/24 Rx release (Adult Low Dose Aspirin) blood sugar diagnostic (OneTouch #100 ea 07/17/23 11/01/24 Rx Verio test strips) blood-glucose meter (OneTouch #1 ea 07/17/23 11/01/24 Rx Verio Flex Meter) lancets 30 gauge (Onetouch Delica #200 ea 07/17/23 11/01/24 Rx Safety Lancet) desvenlafaxine succinate 25 mg 25 mg PO DAILY #30 tabs 09/06/23 0 11/01/24 Rx tablet,extended release 24 hr (Pristiq) Guardian 4 Glucose Sensor #10 ea 11/02/23 11/01/24 Rx (blood-glucose sensor) blood-glucose transmitter #1 ea 11/15/23 11/01/24 Rx (Guardian 4 Transmitter device) blood pressure monitor #1 ea 07/15/24 11/01/24 Rx cilostazol 100 mg tablet 100 mg PO BID #60 tabs 07/15/24 Rx insulin lispro 200 unit/mL (3 mL) 350 unit (1.75 mL) subcut 11/01/24 Rx subcutaneous pen (Humalog KwikPen .continuous #52.5 mL U-200 Insulin) blood-glucose sensor (Guardian 4 #12 ea 09/30/24 11/01/24 Rx Glucose Sensor device) blood-glucose transmitter #1 ea 09/30/24 11/01/24 Rx (Guardian 4 Transmitter device) levothyroxine 112 mcg capsule 112 mcg PO DAILY #30 caps 10/11/24 11/01/24 Rx ondansetron 4 mg disintegrating 4 mg PO Q8H PRN nausea and 5 11/01/24 Rx tablet vomiting #30 tabs pantoprazole 40 mg tablet,delayed 40 mg PO BID #60 tabs 10/14/24 Rx release (Protonix) atorvastatin 40 mg tablet 40 mg PO DAILY 90 days #90 tabs 11/01/24 Rx fenofibrate nanocrystallized 145 145 mg PO DAILY #90 tabs 11/01/24 11/01/24 Rx mg tablet losartan 25 mg tablet 25 mg PO DAILY #90 tabs 11/01/24 0 11/01/24 Rx warfarin 10 mg tablet 10 mg PO DAILY #90 tabs 11/01/24 0 11/01/24 Rx Is last menstrual period known: Yes Post menopausal: No Patient : No Have you fallen in the past year?: Yes [facility] Medical History Peripheral artery disease Xanthelasmatosis Abdominal pain Nausea, vomiting, and diarrhea DKA (diabetic ketoacidosis) Anemia Bipolar disorder Anxiety Depression GERD (gastroesophageal reflux disease) Former smoker Migraines Headache DVT (deep venous thrombosis) Chronic anticoagulation Type 1 diabetes mellitus Abnormal angiogram HTN (hypertension) Hyperlipidemia Surgical History H/O section History of revascularization procedure of lower extremity Hx of cholecystectomy History of intravascular stent placement Tubal ligation status History of below-knee amputation of left lower extremity S/P BKA (below knee amputation) unilateral Family History Father Hypertension Cancer lung Diabetes Mother Diabetes Hypertension Cancer bladder Dementia Social History household members: spouse and children housing: house current occupational status: disabled 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 Recall that she has an extensive vascular surgical history; following acute arterial occlusion (unknown location, this all occurred in [place]) she had multiple failed endovascular interventions and then a failed bypass in the LLE over the course of 1 year prior to L BKA in 2019. She also had prior RLE angioplasty which failed fairly quickly. Due to this series of events she was (more content not included)... Normal [facility] Basic metabolic 2000 panelon 10-18-2024 Anion gap [Moles/Vol] 12 mmol/L 10 - 2 0 mmol/L [facility] Calcium [Mass/Vol] 10.3 mg/dL 8.6 - 10. 3 mg/dL [facility] Chloride [Moles/Vol] 103 mmol/L 98 - 10 7 mmol/L [facility] CO2 [Moles/Vol] 27 mmol/L 21 - 32 mmol/L [facility] Creatinine [Mass/Vol] 0.91 mg/dL 0.50 - 1.05 mg/dL [facility] GFR/1.73 sq M.predicted among non-blacks MDRD (S/P/Bld) [Vol rate/Area] 84 mL/min/{1.73_m2} - PINF [facility] Comment on above: Calculations of terence mated GFR are performed using the 2020 CKD-EPI Study Refit equation without the race variable for the IDMS-Traceable creatinine methods. https://jasn.asnjournals.org/content//ASN.2020 895653 Glucose [Mass/Vol] 133 mg/dL High 74 - 99 mg/dL [facility] Interpretation and review of laboratory results Abnormal [facility] Potassium [Moles/Vol] 4.0 mmol/L 3.5 - 5.3 mmol/L [facility] Sodium [Moles/Vol] 138 mmol/L 136 - 145 mmol/L [facility] Urea nitrogen [Mass/Vol] 10 mg/dL 6 - 23 mg/dL [facility] Anion gap [Moles/Vol] 12 mmol/L Normal 10-20 [facility] Comment on above: Performed By: #### 2 4321-2 #### BALTA LANGLEY ([id number]) [facility] [place] [address] Calcium [Mass/Vol] 10.3 mg/dL Normal 8.6-10.3 [facility] Comment on above: Performed By: #### 2 4321-2 #### BALTA LANGLEY ([id number]) [facility] [place] [address] Chloride [Moles/Vol] 103 mmol/L Normal 98-[address] [facility] Comment on above: Performed By: #### 2 4321-2 #### BALTA LANGLEY ([id number]) [facility] [address] [place] [address] CO2 [Moles/Vol] 27 mmol/L Normal 21-32 [facility] Comment on above: Performed By: #### 2 4321-2 #### BALTA LANGLEY ([id number]) [facility] [address] [place] [address] Creatinine [Mass/Vol] 0.91 mg/dL Normal 0.50-1.05 [facility] Comment on above: Performed By: #### 2 4321-2 #### BALTA LANGLEY ([id number]) [facility] [place] [address] Glomerular filtration rate/1.73 sq M.predicted 84 mL/min/1.73m*2 Normal >60 [facility] Comment on above: Result Comment: Calc ulations of estimated GFR are performed using the 2020 CKD-EPI Study Refit equation without the race variable for the IDMS-Traceable creatinine methods. https://jasn.asnjournals.org/content/early//ASN.2020 334392 Performed By: #### 2 1-2 #### BALTA LANGLEY ([id number]) [facility] [address] [place] [address] Glucose [Mass/Vol] 133 mg/dL High 74-99 [facility] Comment on above: Performed By: #### 2 1-2 #### BALTA LANGLEY ([id number]) [facility] [address] [place] [address] Potassium [Moles/Vol] 4.0 mmol/L Normal 3.5-5.3 [facility] Comment on above: Performed By: #### 2 1-2 #### BALTA LANGLEY ([id number]) [facility] [place] [address] Sodium [Moles/Vol] 138 mmol/L Normal 136-145 [facility] Comment on above: Performed By: #### 2 1-2 #### BALTA LANGLEY ([id number]) [facility] [place] [address] Urea nitrogen [Mass/Vol] 10 mg/dL Normal 6-23 [facility] Comment on above: Performed By: #### 2 1-2 #### BALTA LANGLEY ([id number]) [facility]) [address] [place] [address] CBC W Auto Differential pane l (Bld)on 10-18-2024 Basophils (Bld) [#/Vol] 0.08 10*3/uL [facility] Basophils/100 WBC (Bld) 0.8 % 0.0 - 2.0 % [facility] Eosinophils (Bld) [#/Vol] 0.41 10*3/uL [facility] Eosinophils/100 WBC (Bld) 4.0 % 0.0 - 6.0 % [facility] Erythrocyte distribution width (RBC) [Ratio] 15.3 % High 11.5 - 14.5 % [facility] Hematocrit (Bld) [Volume fraction] 44.8 % 36.0 - 46.0 % [facility] Hemoglobin (Bld) [Mass/Vol] 15.0 g/dL 12.0 - 16.0 g/dL [facility] Immature granulocytes (Bld) [#/Vol] 0.02 10*3/uL [facility] Immature granulocytes/100 WBC (Bld) 0.2 % 0.0 - 0.9 % [facility] Comment on above: Immature Granulocyte Count (IG) includes promyelocytes, myelocytes and metamyelocytes but does not include bands. Percent differential counts (%) should be interpreted in the context of the absolute cell counts (cells/UL). Interpretation and review of laboratory results Abnormal [facility] Lymphocytes (Bld) [#/Vol] 3.00 10*3/uL [facility] Lymphocytes/100 WBC (Bld) 28.9 % 13.0 - 44.0 % [facility] MCH (RBC) [Entitic mass] 25.9 pg Low 26.0 - 34.0 pg [facility] MCHC (RBC) [Mass/Vol] 33.5 g/dL 32.0 - 36.0 g/dL [facility] MCV (RBC) [Entitic vol] 77 fL Low 80 - 100 fL [facility] Monocytes (Bld) [#/Vol] 0.62 10*3/uL [facility] Monocytes/100 WBC (Bld) 6.0 % 2.0 - 10.0 % [facility] Neutrophils (Bld) [#/Vol] 6.24 10*3/uL [facility] Comment on above: Percent differential counts (%) should be interpreted in the context of the absolute cell counts (cells/uL). Neutrophils/100 WBC (Bld) 60.1 % 40.0 - 80.0 % [facility] Nucleated RBC/100 WBC (Bld) [Ratio] 0.0 % [facility] Platelets (Bld) [#/Vol] 303 10*3/uL [facility] RBC (Bld) [#/Vol] 5.80 10*6/uL High [facility] WBC (Bld) [#/Vol] 10.4 10*3/uL [facility] Basophils (Bld) [#/Vol] 0.08 x10*3/uL Normal 0.00-0.10 [facility] Comment on above: Performed By: #### 5 7021-8 #### BALTA LANGLEY ([id number]) [facility] [address] [place] [address] Basophils/100 WBC (Bld) 0.8 % Normal 0.0-2.0 [facility] Comment on above: Performed By: #### 5 7021-8 #### BALTA LANGLEY ([id number]) [facility] [place] [address] Eosinophils (Bld) [#/Vol] 0.41 x10*3/uL Normal 0.00-0.70 [facility] Comment on above: Performed By: #### 5 7021-8 #### BALTA LANGLEY ([id number]) [facility]) [address] [place] [address] Eosinophils/100 WBC (Bld) 4.0 % Normal 0.0-6.0 [facility] Comment on above: Performed By: #### 5 7021-8 #### BALTA LANGLEY ([id number]) [facility] [place] [address] Erythrocyte distribution width (RBC) [Ratio] 15.3 % High 11.5-14.5 [facility] Comment on above: Performed By: #### 5 7021-8 #### BALTA LANGLEY ([id number]) [facility] [address] [place] [address] Hematocrit (Bld) [Volume fraction] 44.8 % Normal 36.0-46.0 [facility] Comment on above: Performed By: #### 5 7021-8 #### BALTA LANGLEY ([id number]) [facility] [address] [place] [address] Hemoglobin (Bld) [Mass/Vol] 15.0 g/dL Normal 12.0-16.0 [facility] Comment on above: Performed By: #### 5 7021-8 #### BALTA LANGLEY ([id number]) [facility] [address] [place], [place] [address] Immature granulocytes (Bld) [#/Vol] 0.02 x10*3/uL Normal 0.00-0.70 [facility] Comment on above: Performed By: #### 5 7021-8 #### BALTA LANGLEY ([id number]) [facility] [address] [place], [place] [address] Immature granulocytes/100 WBC (Bld) 0.2 % Normal 0.0-0.9 [facility] Comment on above: Result Comment: Sugey ture Granulocyte Count (IG) includes promyelocytes, myelocytes and metamyelocytes but does not include bands. Percent differential counts (%) should be interpreted in the context of the absolute cell counts (cells/UL). Performed By: #### 5 7021-8 #### BALTA LANGLEY ([id number]) [facility] [address] [place], [place] [address] Lymphocytes (Bld) [#/Vol] 3.00 x10*3/uL Normal 1.20-4.80 [facility] Comment on above: Performed By: #### 5 7021-8 #### BALTA LANGLEY ([id number]) [facility]) [address] [place] [address]998 Lymphocytes/100 WBC (Bld) 28.9 % Normal 13.0-44.0 [facility] Comment on above: Performed By: #### 5 7021-8 #### BALTA LANGLEY ([id number]) [facility] [address] [place] [address] MCH (RBC) [Entitic mass] 25.9 pg Low 26.0-34.0 [facility] Comment on above: Performed By: #### 5 7021-8 #### BALTA LANGLEY ([id number]) [facility] [address] [place] [address]306 MCHC (RBC) [Mass/Vol] 33.5 g/dL Normal 32.0-36.0 [facility] Comment on above: Performed By: #### 5 7021-8 #### BALTA LANGLEY ([id number]) [facility]) [address] [place] [address]131 MCV (RBC) [Entitic vol] 77 fL Low 80-100 [facility] Comment on above: Performed By: #### 5 7021-8 #### BALTA LANGLEY ([id number]) [facility]) [address] [place] [address] Monocytes (Bld) [#/Vol] 0.62 x10*3/uL Normal 0.10-1.00 [facility] Comment on above: Performed By: #### 5 7021-8 #### BALTA LANGLEY ([id number]) [facility] [address] [place] [address] 09499 Monocytes/100 WBC (Bld) 6.0 % Normal 2.0-10.0 [facility] Comment on above: Performed By: #### 5 7021-8 #### BALTA LANGLEY ([id number]) [facility] [address] [place] [address]33 Neutrophils (Bld) [#/Vol] 6.24 x10*3/uL Normal 1.20-7.70 [facility] Comment on above: Result Comment: Perc ent differential counts (%) should be interpreted in the context of the absolute cell counts (cells/uL). Performed By: #### 5 7021-8 #### BALTA LANGLEY ([id number]) [facility]) [address] [place] [address] 58881 Neutrophils/100 WBC (Bld) 60.1 % Normal 40.0-80.0 [facility] Comment on above: Performed By: #### 5 7021-8 #### BALTA LANGLEY ([id number]) [facility] [address] [place], [place] [address] Nucleated RBC/100 WBC (Bld) [Ratio] 0.0 /100 WBCs Normal 0.0-0.0 [facility] Comment on above: Performed By: #### 5 7021-8 #### BALTA LANGLEY ([id number]) [facility]) [address] [place] [address]447 Platelets (Bld) [#/Vol] 303 x10*3/uL Normal 150-450 [facility] Comment on above: Performed By: #### 5 7021-8 #### BALTA LANGLEY ([id number]) [facility]) [address] [place] [address]45 RBC (Bld) [#/Vol] 5.80 x10*6/uL High 4.00-5.[address] [facility] Comment on above: Performed By: #### 5 7021-8 #### BALTA LANGLEY ([id number]) [facility]) [address] [place] [address]013 WBC (Bld) [#/Vol] 10.4 x10*3/uL Normal 4.4-11.[address] [facility] Comment on above: Performed By: #### 5 7021-8 #### BALTA LANGLEY ([id number]) [facility]) [address] [place] [address] ANGIO AORTA AND BILATERAL ILIOFEMORAL RUN OFF INCLUDING WITHOUT CONTRAST IF PERFORMEDon 10-18-2024 CT ANGIO AORTA AND BILATERAL ILIOFEMORAL RUN OFF INCLUDING WITHOUT CONTRAST IF PERFORMED Interpreted By: Darien Kwan, STUDY: CT ANGIO AORTA AND BILATERAL ILIOFEMORAL RUN OFF INCLUDING WITHOUT CONTRAST IF PERFORMED; ; 10/18/2024 5:[address] ANGIOGRAM ABDOMEN, PELVIS, AND BILATERAL LOWER EXTREMITY RUNOFF WITH CONTRAST INDICATION: Signs/Symptoms:right lower ext. pain - hx. PVD. 38-year-old woman with the. COMPARISON: None. ACCESSION NUMBER(S): [id number] ORDERING CLINICIAN: VIKRAM SZYMANSKI TECHNIQUE: Contiguous acquired helical axial images were obtained of the abdomen, pelvis, and bilateral lower extremities after the uneventful administration 90 mL Omnipaque 350. Coronal and sagittal multiplanar reformatted maximum intensity projection images were obtained. FINDINGS: Angiographic: Heart size is normal. The partially imaged descending thoracic aorta is normal in caliber. The celiac, superior mesenteric, bilateral renal, and inferior mesenteric arteries are patent. There is eccentric calcified and noncalcified infrarenal abdominal aortic plaque which moderately narrows luminal caliber at the bifurcation. The right common and external iliac arteries are mildly atherosclerotic and patent. The right internal iliac artery is occluded. The right common femoral artery and profunda femoris artery are patent. There is suspected short segment severe narrowing involving the right superficial femoral artery in the mid right thigh (image 2097 of 4434). More distally, the right superficial femoral artery may be totally occluded (assistance representative image 2326 of 4434). The right popliteal artery is small in caliber but patent. The right anterior tibial artery is patent to the level of the right ankle. Short segment severe stenosis of the right tibioperoneal trunk (image 3018 of 4434). Right peroneal and posterior tibial arteries appear patent to the level of the right ankle. The left common, internal, and external iliac arteries are mild to moderately atherosclerotic but patent. The left common femoral artery is narrowed but patent. The left profunda femoris artery is patent. 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 A distal left SFA stent is occluded. Partially imaged left popliteal artery is occluded with distal left thigh reconstitution from profundus branches. Left below-knee amputation. Contrast timing is suboptimal for the evaluation of venous structures. Large iliac veins of the pelvis and the IVC are grossly unremarkable. Renal veins are patent. Portal, superior mesenteric, and splenic veins are grossly unremarkable. Nonangiographic: The lung bases are grossly clear. No pleural effusion. The absence of dedicated portal venous phase contrast-enhanced imaging limits evaluation of solid intraperitoneal organs in the gastrointestinal tract wall. The liver is normal in size and shape. Status post cholecystectomy. No biliary ductal dilation. The spleen, right adrenal gland, and the pancreas are unremarkable. There is a 3.0 cm left adrenal mass, indeterminate attenuation. Kidneys enhance symmetrically. No hydronephrosis. The urinary bladder is moderately well distended and grossly unremarkable. The uterus and adnexa are grossly unremarkable. No gastrointestinal tract obstruction, pneumatosis, or pneumoperitoneum. Moderate stool burden throughout the colon large cool burn in the rectum. No acute superficial soft tissue abnormalities. No acute osseous abnormality. IMPRESSION: 1. Moderate infrarenal abdominal aortic atherosclerotic narrowing at the bifurcation. Multifocal mild with short segment severe and/or total occlusion of the distal right superficial femoral artery as described above.The right anterior tibial artery is patent to the level of the right ankle. Short segment severe stenosis of the right tibioperoneal trunk (image 3018 of 4434). Right peroneal and posterior tibial arteries appear patent to the level of the right ankle. 2. Moderate narrowing of the left external iliac and common femoral arteries with patency of the left profunda femoris artery which perfuses the left lower extremity below-knee amputation stump. [place] left superficial femoral and popliteal arteries are occluded along the entire length. 3. 3.0 cm left adrenal mass. Consider dedicated multiphase CT scan adrenal protocol if clinically indicated. MACRO: None Signed by: Darien Kwan 10/18/2024 5:52 PM Dictation workstation: [id number] [facility] CTA Thoracic and Abdominal A josue and Bilateral Runoff Vessels WO and W contrast Chen 10-18-2024 1. Moderate infraren al abdominal aortic atherosclerotic narrowing at the bifurcation. Multifocal mild with short segment severe and/or total occlusion of the distal right superficial femoral artery as described above.The right anterior tibial artery is patent to the level of the right ankle. Short segment severe stenosis of the right tibioperoneal trunk (image 3018 of 4434). Right peroneal and posterior tibial arteries appear patent to the level of the right ankle. 2. Moderate narrowing of the left external iliac and common femoral arteries with patency of the left profunda femoris artery which perfuses the left lower extremity below-knee amputation stump. [place] left superficial femoral and popliteal arteries are occluded along the entire length. 3. 3.0 cm left adrenal mass. Consider dedicated multiphase CT scan adrenal protocol if clinically indicated. MACRO: None Signed by: Darien Kwan 10/18/2024 5:52 PM Dictation workstation: [id number] [facility] Interpreted By: Darien Kwan, STUDY: CT ANGIO AORTA AND BILATERAL ILIOFEMORAL RUN OFF INCLUDING WITHOUT CONTRAST IF PERFORMED; ; 10/18/2024 5:[address] ANGIOGRAM ABDOMEN, PELVIS, AND BILATERAL LOWER EXTREMITY RUNOFF WITH CONTRAST INDICATION: Signs/Symptoms:right lower ext. pain - hx. PVD. 38-year-old woman with the. COMPARISON: None. ACCESSION NUMBER(S): [id number] ORDERING CLINICIAN: VIKRAM SZYMANSKI TECHNIQUE: Contiguous acquired helical axial images were obtained of the abdomen, pelvis, and bilateral lower extremities after the uneventful administration 90 mL Omnipaque 350. Coronal and sagittal multiplanar reformatted maximum intensity projection images were obtained. FINDINGS: Angiographic: Heart size is normal. The partially imaged descending thoracic aorta is normal in caliber. The celiac, superior mesenteric, bilateral renal, and inferior mesenteric arteries are patent. There is eccentric calcified and noncalcified infrarenal abdominal aortic plaque which moderately narrows luminal caliber at the bifurcation. The right common and external iliac arteries are mildly atherosclerotic and patent. The right internal iliac artery is occluded. The right common femoral artery and profunda femoris artery are patent. There is suspected short segment severe narrowing involving the right superficial femoral artery in the mid right thigh (image 2097 of 4434). More distally, the right superficial femoral artery may be totally occluded (assistance representative image 2326 of 4434). The right popliteal artery is small in caliber but patent. The right anterior tibial artery is patent to the level of the right ankle. Short segment severe stenosis of the right tibioperoneal trunk (image 3018 of 4434). Right peroneal and posterior tibial arteries appear patent to the level of the right ankle. The left common, internal, and external iliac arteries are mild to moderately atherosclerotic but patent. The left common femoral artery is narrowed but patent. The left profunda femoris artery is patent. 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 A distal left SFA stent is occluded. Partially imaged left popliteal artery is occluded with distal left thigh reconstitution from profundus branches. Left below-knee amputation. Contrast timing is suboptimal for the evaluation of venous structures. Large iliac veins of the pelvis and the IVC are grossly unremarkable. Renal veins are patent. Portal, superior mesenteric, and splenic veins are grossly unremarkable. Nonangiographic: The lung bases are grossly clear. No pleural effusion. The absence of dedicated portal venous phase contrast-enhanced imaging limits evaluation of solid intraperitoneal organs in the gastrointestinal tract wall. The liver is normal in size and shape. Status post cholecystectomy. No biliary ductal dilation. The spleen, right adrenal gland, and the pancreas are unremarkable. There is a 3.0 cm left adrenal mass, indeterminate attenuation. Kidneys enhance symmetrically. No hydronephrosis. The urinary bladder is moderately well distended and grossly unremarkable. The uterus and adnexa are grossly unremarkable. No gastrointestinal tract obstruction, pneumatosis, or pneumoperitoneum. Moderate stool burden throughout the colon large cool burn in the rectum. No acute superficial soft tissue abnormalities. No acute osseous abnormality. [facility] Darien Kwan MD - 10/18/2024 Interpreted By: Darien Kwan, STUDY: CT ANGIO AORTA AND BILATERAL ILIOFEMORAL RUN OFF INCLUDING WITHOUT CONTRAST IF PERFORMED; ; 10/18/2024 5:[address] ANGIOGRAM ABDOMEN, PELVIS, AND BILATERAL LOWER EXTREMITY RUNOFF WITH CONTRAST INDICATION: Signs/Symptoms:right lower ext. pain - hx. PVD. 38-year-old woman with the. COMPARISON: None. ACCESSION NUMBER(S): [id number] ORDERING CLINICIAN: VIKRAM SZYMANSKI TECHNIQUE: Contiguous acquired helical axial images were obtained of the abdomen, pelvis, and bilateral lower extremities after the uneventful administration 90 mL Omnipaque 350. Coronal and sagittal multiplanar reformatted maximum intensity projection images were obtained. FINDINGS: Angiographic: Heart size is normal. The partially imaged descending thoracic aorta is normal in caliber. The celiac, superior mesenteric, bilateral renal, and inferior mesenteric arteries are patent. There is eccentric calcified and noncalcified infrarenal abdominal aortic plaque which moderately narrows luminal caliber at the bifurcation. The right common and external iliac arteries are mildly atherosclerotic and patent. The right internal iliac artery is occluded. The right common femoral artery and profunda femoris artery are patent. There is suspected short segment severe narrowing involving the right superficial femoral artery in the mid right thigh (image 2097 of 4434). More distally, the right superficial femoral artery may be totally occluded (assistance representative image 2326 of 4434). The right popliteal artery is small in caliber but patent. The right anterior tibial artery is patent to the level of the right ankle. Short segment severe stenosis of the right tibioperoneal trunk (image 3018 of 4434). Right peroneal and posterior tibial arteries appear patent to the level of the right ankle. The left common, internal, and external iliac arteries are mild to moderately atherosclerotic but patent. The left common femoral artery is narrowed but patent. The left profunda femoris artery is patent. 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 A distal left SFA stent is occluded. Partially imaged left popliteal artery is occluded with distal left thigh reconstitution from profundus branches. Left below-knee amputation. Contrast timing is suboptimal for the evaluation of venous structures. Large iliac veins of the pelvis and the IVC are grossly unremarkable. Renal veins are patent. Portal, superior mesenteric, and splenic veins are grossly unremarkable. Nonangiographic: The lung bases are grossly clear. No pleural effusion. The absence of dedicated portal venous phase contrast-enhanced imaging limits evaluation of solid intraperitoneal organs in the gastrointestinal tract wall. The liver is normal in size and shape. Status post cholecystectomy. No biliary ductal dilation. The spleen, right adrenal gland, and the pancreas are unremarkable. There is a 3.0 cm left adrenal mass, indeterminate attenuation. Kidneys enhance symmetrically. No hydronephrosis. The urinary bladder is moderately well distended and grossly unremarkable. The uterus and adnexa are grossly unremarkable. No gastrointestinal tract obstruction, pneumatosis, or pneumoperitoneum. Moderate stool burden throughout the colon large cool burn in the rectum. No acute superficial soft tissue abnormalities. No acute osseous abnormality. IMPRESSION: 1. Moderate infrarenal abdominal aortic atherosclerotic narrowing at the bifurcation. Multifocal mild with short segment severe and/or total occlusion of the distal right superficial femoral artery as described above.The right anterior tibial artery is patent to the level of the right ankle. Short segment severe stenosis of the right tibioperoneal trunk (image 3018 of 4434). Right peroneal and posterior tibial arteries appear patent to the level of the right ankle. 2. Moderate narrowing of the left external iliac and common femoral arteries with patency of the left profunda femoris artery which perfuses the left lower extremity below-knee amputation stump. [place] left superficial femoral and popliteal arteries are occluded along the entire length. 3. 3.0 cm left adrenal mass. Consider dedicated multiphase CT scan adrenal protocol if clinically indicated. MACRO: None Signed by: Darien Kwan 10/18/2024 5:52 PM Dictation workstation: [id number] [facility] Work Phone: Radiology Study observation (narrative) [facility] Work Phone: CTA Thoracic and Abdominal A josue and Bilateral Runoff Vessels WO and W contrast IVOrdered By: Darien Kwan on 10-18-2024 [facility] Work Phone: Coagulation tissue factor in ducedon 10-18-2024 PT Coag (PPP) [Time] 36.7 s High 9.8-12.[address] [facility] Comment on above: Performed By: #### 5 902-2 #### BALTA LANGLEY ([id number]) [facility] ([facility]) [address] [place] [id number] PT Coag (PPP) [Time]on 10-18 INR Coag (PPP) [Relative time] 3.3 {INR} High 0.9 - 1.1 [facility] Interpretation and review of laboratory results Abnormal [facility] INR Coag (PPP) [Relative time] 3.3 High 0.9-1.1 [facility] Comment on above: Performed By: #### 5 902-2 #### BALTA LANGLEY ([id number]) [facility] ([facility]) [address] [place] [id number] Protime-INRon 10-18-2024 PT Coag (PPP) [Time] 36.7 s [facility] VAS US LOWER EXTREMITY VENO US DUPLEX RIGHTon 10-18-2024 VASC US LOWER [place]TREM[place] [address] [phone], Vascular Lab Report [facility] US LOWER EXTREMITY VENOUS DUPLEX RIGHT 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 Left Lower Venous: The left common femoral vein demonstrates normal spontaneous and respirophasic flow. Imaging & Doppler Findings: Right Compressible Thrombus Flow Distal External Iliac None CFV Yes None Spontaneous/Phasic PFV Yes None FV Proximal Yes None Spontaneous/Phasic FV Mid Yes None FV Distal Yes None Popliteal Yes None Spontaneous/Phasic Peroneal Yes None PTV Yes None Left Flow CFV Spontaneous/Phasic [id number] Jerica Jackson MD Final Normal [facility] XR LUMBAR SPINE 2-3 VIEWSon 10-18-2024 XR LUMBAR SPINE 2-3 VIEWS Interpreted By: Patrick Cesar, STUDY: XR LUMBAR SPINE 2-3 VIEWS; 10/18/2024 2:54 pm INDICATION: Signs/Symptoms:back pain. COMPARISON: None. ACCESSION NUMBER(S): [id number] ORDERING CLINICIAN: VIKRAM SZYMANSKI TECHNIQUE: AP and lateral views of the lumbar spine were obtained. FINDINGS: Partial lumbarization of S1. This is a variant of normal. Mild endplate osteophytosis at L3-4. Very mild sclerotic changes in both SI joints. Disk space height is preserved throughout. No lytic or blastic bone lesion. No listhesis. No compression fracture. Moderate retained colonic stool and gas. Nonobstructive, nonspecific bowel gas pattern. Right upper quadrant abdominal surgical clips. Mild arterial calcifications in the proximal bilateral iliac arteries. IMPRESSION: Mild DJD as described. Moderate retained colonic stool. Mild bilateral iliac artery calcifications. MACRO: None Signed by: Patrick Cesar 10/18/2024 3:36 PM Dictation workstation: [id number] [facility] XR Lumbar spine 2 or 3 Views on 10-18-2024 Mild DJD as describe d. Moderate retained colonic stool. Mild bilateral iliac artery calcifications. MACRO: None Signed by: Patrick Cesar 10/18/2024 3:36 PM Dictation workstation: [id number] MMODAL Interpreted By: Patrick Alexander, STUDY: XR LUMBAR SPINE 2-3 VIEWS; 10/18/2024 2:54 pm INDICATION: Signs/Symptoms:back pain. COMPARISON: None. ACCESSION NUMBER(S): [id number] ORDERING CLINICIAN: VIKRAM SZYMANSKI TECHNIQUE: AP and lateral views of the lumbar spine were obtained. FINDINGS: Partial lumbarization of S1. This is a variant of normal. Mild endplate osteophytosis at L3-4. Very mild sclerotic changes in both SI joints. Disk space height is preserved throughout. No lytic or blastic bone lesion. No listhesis. No compression fracture. Moderate retained colonic stool and gas. Nonobstructive, nonspecific bowel gas pattern. Right upper quadrant abdominal surgical clips. Mild arterial calcifications in the proximal bilateral iliac arteries. MMODAL Patrick Cesar MD - 10/18/2024 Interpreted By: Patrick Cesar, STUDY: XR LUMBAR SPINE 2-3 VIEWS; 10/18/2024 2:54 pm INDICATION: Signs/Symptoms:back pain. COMPARISON: None. ACCESSION NUMBER(S): [id number] ORDERING CLINICIAN: VIKRAM SZYMANSKI TECHNIQUE: AP and lateral views of the lumbar spine were obtained. FINDINGS: Partial lumbarization of S1. This is a variant of normal. Mild endplate osteophytosis at L3-4. Very mild sclerotic changes in both SI joints. Disk space height is preserved throughout. No lytic or blastic bone lesion. No listhesis. No compression fracture. Moderate retained colonic stool and gas. Nonobstructive, nonspecific bowel gas pattern. Right upper quadrant abdominal surgical clips. Mild arterial calcifications in the proximal bilateral iliac arteries. IMPRESSION: Mild DJD as described. Moderate retained colonic stool. Mild bilateral iliac artery calcifications. MACRO: None Signed by: Patrick Cesar 10/18/2024 3:36 PM Dictation workstation: [id number] [facility] Work Phone: Radiology Study observation (narrative) [facility] Work Phone: XR Lumbar spine 2 or 3 Views Ordered By: Patrick Cesar on 10-18-2024 [facility] Work Phone: C-Peptideon 09-24-2024 C PEPTIDE 0.7 ng/mL Low 1.1-4.4 [facility] Comment on above: Order Comment: Speci men Comment: A duplicate report has been generateddue to demographicSpecimen Comment: update of the patient's Date of ,Age, Gender, and/orSpecimen Comment: Specimen Date. Please review patientresults, referenceSpecimen Comment: intervals, and calculated results thatmay have beenSpecimen Comment: affected by this change. Result Comment: C-Pe ptide reference interval is for fasting patients. Performed By: #### L 506.0400, L3100.7750, L506.1001, L502.0250 ####[facility] [address] [place], [address] Absolute lymphocyte countOrd ered By: Autumn Whitt on 09-20-2024 Lymphocytes Auto (Unsp spec) [#/Vol] 2.12 10*3/uL 0.83-4.51 [facility] Absolute neutrophil countOrd ered By: Autumn Whitt on 09-20-2024 Neutrophils (Bld) [#/Vol] 4.5 10*3/uL 2.0-7.7 [facility] Anion gap in Serum or Plasma Ordered By: Autumn Whitt on 09-20-2024 Anion gap [Moles/Vol] 14 mmol/L 5-15 [facility] Automated lymphocyte count a s percentage of total leukocytesOrdered By: Autumn Whitt on 09-20-2024 Lymphocytes/100 WBC Auto (Unsp spec) 28.5 % [facility] BUN/creatinine ratioOrdered By: Autumn Whitt on 09-20-2024 Urea nitrogen/Creatinine [Mass ratio] 11.9 mg/mg 10- [facility] Basophil percentageOrdered B y: Autumn Whitt on 09-20-2024 Basophils/100 WBC (Bld) 1.1 % High 0-1 [facility] Bilirubin, totalOrdered By: Autumn Whitt on 09-20-2024 Bilirubin [Mass/Vol] 0.23 mg/dL 0.00-1.30 [facility] CBC W/Diff, Automatedon 09-02 Absolute Lymph 2.12 X10 3/uL Normal 0.83-4.51 [facility] Comment on above: Performed By: #### L 500.4050, L100.0100, L501.9520, L500.4100 ####[facility] [address] [place], [address] Absolute Neut 4.5 X10 3/uL Normal 2.0-7.7 [facility] Comment on above: Performed By: #### L 500.4050, L100.0100, L501.9520, L500.4100 ####[facility] [address] [place], [address] Basophils/100 WBC (Bld) 1.1 % High 0-1 [facility] Comment on above: Performed By: #### L 500.4050, L100.0100, L501.9520, L500.4100 ####[facility] [address] [place], [address] Eosinophils/100 WBC (Bld) 3.5 % Normal 0-5 [facility] Comment on above: Performed By: #### L 500.4050, L100.0100, L501.9520, L500.4100 ####[facility] [address] [place], [address] Erythrocyte distribution width (RBC) [Ratio] 14.5 % Normal 11.6-14.6 [facility] Comment on above: Performed By: #### L 500.4050, L100.0100, L501.9520, L500.4100 ####[facility] [address] [place], [address] Hematocrit (Bld) [Volume fraction] 43.3 % Normal 37-47 [facility] Comment on above: Performed By: #### L 500.4050, L100.0100, L501.9520, L500.4100 ####[facility] [address] [place], [address] Hemoglobin (Bld) [Mass/Vol] 14.8 g/dL Normal 12.0-15.0 [facility] Comment on above: Performed By: #### L 500.4050, L100.0100, L501.9520, L500.4100 ####[facility] [address] [place], [address] IG% 0.100 Normal 0.0-0.9 [facility] Comment on above: Result Comment: IG% - Immature Granulocytes (promyelocytes, myelocytes and metamyelocytes) > 1% indicates that a LEFT SHIFT is Present. Performed By: #### L 500.4050, L100.0100, L501.9520, L500.4100 ####[facility] [address] [place], [address] Lymphocytes/100 WBC (Bld) 28.5 % Normal 19-41 [facility] Comment on above: Performed By: #### L 500.4050, L100.0100, L501.9520, L500.4100 ####[facility] [address] [place], [address] MCH (RBC) [Entitic mass] 26.7 pg Low 27.0-32.0 [facility] Comment on above: Performed By: #### L 500.4050, L100.0100, L501.9520, L500.4100 ####[facility] [address] [place], [address] MCHC (RBC) [Mass/Vol] 34.2 g/dL Normal 32-36 [facility] Comment on above: Performed By: #### L 500.4050, L100.0100, L501.9520, L500.4100 ####[facility] [address] [place], [address] MCV (RBC) [Entitic vol] 78.0 fL Low 81-99 [facility] Comment on above: Performed By: #### L 500.4050, L100.0100, L501.9520, L500.4100 ####[facility] [address] [place], [address] Monocytes/100 WBC (Bld) 6.1 % Normal 0-10 [facility] Comment on above: Performed By: #### L 500.4050, L100.0100, L501.9520, L500.4100 ####[facility] [address] [place], [address] Neutrophils/100 WBC (Bld) 60.7 % Normal 47-70 [facility] Comment on above: Performed By: #### L 500.4050, L100.0100, L501.9520, L500.4100 ####[facility] [address] [place], [address] Nucleated RBC (Bld) [#/Vol] 0 10*3/uL Normal 0-5 [facility] Comment on above: Performed By: #### L 500.4050, L100.0100, L501.9520, L500.4100 ####[facility] [address] [place], [address] Platelet mean volume (Bld) [Entitic vol] 10.8 fL Normal 6.2-12.0 [facility] Comment on above: Performed By: #### L 500.4050, L100.0100, L501.9520, L500.4100 ####[facility] [address] [place], [address] Platelets (Bld) [#/Vol] 281 10*3/uL Normal 150-450 [facility] Comment on above: Performed By: #### L 500.4050, L100.0100, L501.9520, L500.4100 ####[facility] [address] [place], [address] RBC (Bld) [#/Vol] 5.55 10*6/uL High 4.2-5.4 [facility] Comment on above: Performed By: #### L 500.4050, L100.0100, L501.9520, L500.4100 ####[facility] [address] [place], [address] RDW SD 40.2 fl Normal 35.1-43.9 [facility] Comment on above: Performed By: #### L 500.4050, L100.0100, L501.9520, L500.4100 ####[facility] [address] [place], [address] WBC (Bld) [#/Vol] 7.4 10*3/uL Normal 4.4-11.0 [facility] Comment on above: Performed By: #### L 500.4050, L100.0100, L501.9520, L500.4100 ####[facility] [address] [place], [address] Calculated very low density lipoprotein (VLDL) cholesterol measurementOrdered By: Autumn Whitt on 09-20-2024 Calculated very low density lipoprotein (VLDL) cholesterol measurement 23 mg/dL 5-40 [facility] Carbon dioxide, total [Moles /volume] in Central venous bloodOrdered By: Autumn Whitt on 09-20-2024 CO2 [Moles/Vol] 22.9 mmol/L 21.0-32.0 [facility] Chloride assayOrdered By: Roberto Whitt on 09-20-2024 Chloride [Moles/Vol] 102 mmol/L 98-108 [facility] Comprehensive Metabolic Prof ilon 09-20-2024 Albumin [Mass/Vol] 4.3 g/dL Normal 3.5-5.0 [facility] Comment on above: Order Comment: DR ANNITA BUTCHER ORDERED TSH Performed By: #### L 500.4050, L100.0100, L501.9520, L500.4100 ####[facility] [address] [place], [address] Albumin/Globulin [Mass ratio] 1.2 {ratio} Normal 0.9-2.4 [facility] Comment on above: Order Comment: DR ANNITA BUTCHER ORDERED TSH Performed By: #### L 500.4050, L100.0100, L501.9520, L500.4100 ####[facility] [address] [place], [address] ALK PHOS 67 U/L Normal 35-104 [facility] Comment on above: Order Comment: DR ANNITA BUTCHER ORDERED TSH Performed By: #### L 500.4050, L100.0100, L501.9520, L500.4100 ####[facility] [address] [place], [address] ALT [Catalytic activity/Vol] 19 U/L Normal <=34 [facility] Comment on above: Order Comment: DR ANNITA BUTCHER ORDERED TSH Performed By: #### L 500.4050, L100.0100, L501.9520, L500.4100 ####[facility] [address] [place], [address] AST [Catalytic activity/Vol] 28 U/L Normal <=31 [facility] Comment on above: Order Comment: DR ANNIAT BUTCHER ORDERED TSH Performed By: #### L 500.4050, L100.0100, L501.9520, L500.4100 ####[facility] [address] [place], [address] Bilirubin [Mass/Vol] 0.23 mg/dL Normal 0.00-1.30 [facility] Comment on above: Order Comment: DR ANNITA BUTCHER ORDERED TSH Performed By: #### L 500.4050, L100.0100, L501.9520, L500.4100 ####[facility] [address] [place], [address] BUN/CRE 11.9 RATIO Normal 10-20 [facility] [place] Comment on above: Order Comment: DR ANNITA BUTCHER ORDERED TSH Performed By: #### L 500.4050, L100.0100, L501.9520, L500.4100 ####[facility] [place] [address] [place], [address] Calcium [Mass/Vol] 9.8 mg/dL Normal 7.6-11.0 [facility] Comment on above: Order Comment: DR ANNITA BUTCHER ORDERED TSH Performed By: #### L 500.4050, L100.0100, L501.9520, L500.4100 ####[facility] [place] [address] [place], [address] Chloride [Moles/Vol] 102 mmol/L Normal 98-108 [facility] Comment on above: Order Comment: DR ANNITA BUTCHER ORDERED TSH Performed By: #### L 500.4050, L100.0100, L501.9520, L500.4100 ####[facility] [place] [address] [place], [address] CO2 [Moles/Vol] 22.9 mmol/L Normal 21.0-32.0 [facility] [place] Comment on above: Order Comment: DR ANNITA BUTCHER ORDERED TSH Performed By: #### L 500.4050, L100.0100, L501.9520, L500.4100 ####[facility] [place] [address] [place], [address] Creatinine [Mass/Vol] 0.75 mg/dL Normal 0.70-1.20 [facility] Comment on above: Order Comment: DR ANNITA BUTCHER ORDERED TSH Performed By: #### L 500.4050, L100.0100, L501.9520, L500.4100 ####[facility] [place] [address] [place], [address] GAP 14 Normal 5-15 [facility] [place] Comment on above: Order Comment: DR ANNITA BUTCHER ORDERED TSH Performed By: #### L 500.4050, L100.0100, L501.9520, L500.4100 ####[facility] [place] [address] [place], [address] GFR/1.73 sq M.predicted among non-blacks MDRD (S/P/Bld) [Vol rate/Area] 105 mL/min/{1.73_m2} Normal >60 [facility] [place] Comment on above: Order Comment: DR ANNITA BUTCHER ORDERED TSH Result Comment: mL/m in/1.73m2 CKD-EPI Creatinine Equation (2020) Performed By: #### L 500.4050, L100.0100, L501.9520, L500.4100 ####[facility] [place] [address] [place], [address] Globulin (S) [Mass/Vol] 3.5 g/dL Normal 2.2-4.2 [facility] Comment on above: Order Comment: DR ANNITA BUTCHER ORDERED TSH Performed By: #### L 500.4050, L100.0100, L501.9520, L500.4100 ####[facility] [place] [address] [place], [address] Glucose [Mass/Vol] 83 mg/dL Normal 70-99 [facility] Comment on above: Order Comment: DR ANNITA BUTCHER ORDERED TSH Performed By: #### L 500.4050, L100.0100, L501.9520, L500.4100 ####[facility] [place] [address] [place], [address] Potassium [Moles/Vol] 4.2 mmol/L Normal 3.3-5.1 [facility] Comment on above: Order Comment: DR ANNITA BUTCHER ORDERED TSH Performed By: #### L 500.4050, L100.0100, L501.9520, L500.4100 ####[facility] [place] [address] [place], [address] Sodium [Moles/Vol] 139 mmol/L Normal 133-145 [facility] Comment on above: Order Comment: DR ANNITA BUTCHER ORDERED TSH Performed By: #### L 500.4050, L100.0100, L501.9520, L500.4100 ####[facility] [place] [address] [place], [address] T PROT 7.8 g/dL Normal 5.9-8.4 [facility] [place] Comment on above: Order Comment: DR ANNITA BUTCHER ORDERED TSH Performed By: #### L 500.4050, L100.0100, L501.9520, L500.4100 ####[facility] [place] [address] [place], [address] Urea nitrogen [Mass/Vol] 9 mg/dL Normal 4-19 [facility] [place] Comment on above: Order Comment: DR ANNITA BUTCHER ORDERED TSH Performed By: #### L 500.4050, L100.0100, L501.9520, L500.4100 ####[facility] [place] [address] [place], [address] Eosinophil percentageOrdered By: Autumn Whitt on 09-20-2024 Eosinophils/100 WBC (Bld) 3.5 % 0-5 [facility] [place] Erythrocyte distribution wid th ratioOrdered By: Autumn Whitt on 09-20-2024 Erythrocyte distribution width (RBC) [Ratio] 14.5 % 11.6-14.6 [facility] [place] Erythrocyte distribution wid th standard deviationOrdered By: Autumn Whitt on 09-20-2024 Erythrocyte distribution width (RBC) [Ratio] 40.2 fl 35.1-43.9 [facility] [place] Glomerular filtration rate ( GFR) estimation/1.73 sq m using serum, plasma, or whole bOrdered By: Autumn Whitt on 09-20-2024 GFR/1.73 sq M.predicted among non-blacks MDRD (S/P/Bld) [Vol rate/Area] 105 mL/min/{1.73_m2} >60 [facility] [place] Comment on above: mL/min/1.73m2 CKD-EP I Creatinine Equation (2020) Hematocrit Auto (Bld) [Volum e fraction]Ordered By: Autumnsteffen Whitt on 09-20-2024 Hematocrit (Bld) [Volume fraction] 43.3 % 37-47 [facility] [place] Hemoglobin measurementOrdere d By: Autumn Whitt on 09-20-2024 Hemoglobin (Bld) [Mass/Vol] 14.8 g/dL 12.0-15.0 [facility] [place] Immature granulocytes/100 WB C Auto (Bld)Ordered By: Autumn Whitt on 09-20-2024 Immature granulocytes/100 WBC (Bld) 0.100 % 0.0-0.9 [facility] [place] Comment on above: IG% - Immature Granu locytes (promyelocytes, myelocytes and metamyelocytes) > 1% indicates that a LEFT SHIFT is Present. International normalized rat io (INR) calculationOrdered By: Zoran Tyson on 09-20-2024 INR Coag (Bld) [Relative time] 3.0 {INR} [facility] [place] LDL calc ser/plasOrdered By: Autumn Whitt on 09-20-2024 Cholesterol in LDL [Mass/Vol] 87 mg/dL [facility] [place] Comment on above: Qzgzxcwibm=184-919 m g/dL & Higher Xhlr=138 mg/dL or greater Laboratory - Chemistry and C hemistry - challengeOrdered By: Autumn Whitt on 09-20-2024 AST [Catalytic activity/Vol] 28 U/L <32 [facility] [place] Lipid Profileon 09-20-2024 CHOL:HDL 4.28 Normal [facility] [place] Comment on above: Order Comment: DR ANNITA BUTCHER ORDERED TSH Performed By: #### L 500.4050, L100.0100, L501.9520, L500.4100 ####[facility] [place] [address] [place], [address] Cholesterol [Mass/Vol] 143 mg/dL Normal <=200 [facility] Comment on above: Order Comment: DR ANNITA BUTCHER ORDERED TSH Result Comment: Chol esterol level, Desirable <200 mg/dL Borderline high cholesterol 200-239 mg/dL High cholesterol >=240 mg/dL Recommendations of the NCEP Adult Treatment Panel for the following risk-cutoff thresholds for the [place] population. Performed By: #### L 500.4050, L100.0100, L501.9520, L500.4100 ####[facility] [place] [address] [place], [address] Cholesterol in HDL [Mass/Vol] 33 mg/dL Low [facility] [place] Comment on above: Order Comment: DR ANNITA BUTCHER ORDERED TSH Result Comment: Valerie onal Cholesterol Education Program (NCEP) guidelines: <40 mg/dL: Low HDL-cholesterol (major risk factor for CHD) >= 60 mg/dL: High HDL-cholesterol (negative risk factor for CHD) HDL-cholesterol is affected by a number of factors, e.g. smoking, exercise, hormones, sex and age. Performed By: #### L 500.4050, L100.0100, L501.9520, L500.4100 ####[facility] [place] [address] [place], [address] Cholesterol in LDL [Mass/Vol] 87 mg/dL Normal [facility] [place] Comment on above: Order Comment: DR ANNITA BUTCHER ORDERED TSH Result Comment: Bord zqpcsb=190-817 mg/dL Higher Vypq=047 mg/dL or greater Performed By: #### L 500.4050, L100.0100, L501.9520, L500.4100 ####[facility] [place] [address] [place], [address] Cholesterol in VLDL [Mass/Vol] 23 mg/dL Normal 5-40 [facility] [place] Comment on above: Order Comment: DR ANNITA BUTCHER ORDERED TSH Performed By: #### L 500.4050, L100.0100, L501.9520, L500.4100 ####[facility] [place] [address] [place], [address] Triglyceride [Mass/Vol] 113 mg/dL Normal [facility] Comment on above: Order Comment: DR ANNITA BUTCHER ORDERED TSH Result Comment: The drugs N-Acetylcysteine and Metamizole may falsely depress this assay. Normal range: <150 mg/dL Borderline High: 150-199 mg/dL High: 200-499 mg/dL Very High: >500 mg/dL Performed By: #### L 500.4050, L100.0100, L501.9520, L500.4100 ####[facility] [place] [address] [place], [address] MCV (mean corpuscular volume ) determinationOrdered By: Autumn Whitt on 09-20-2024 MCV (RBC) [Entitic vol] 78.0 fL Low 81-99 [facility] Mean corpuscular hemoglobin (MCH) determinationOrdered By: Autumn Whitt on 09-20-2024 MCH (RBC) [Entitic mass] 26.7 pg Low 27.0-32.0 [facility] [place] Mean corpuscular hemoglobin concentration (MCHC) determinationOrdered By: Autumn Whitt on 09-20-2024 MCHC (RBC) [Mass/Vol] 34.2 g/dL 32-36 [facility] Mean platelet volume determi nationOrdered By: Autumn Whitt on 09-20-2024 Platelet mean volume (Bld) [Entitic vol] 10.8 fL 6.2-12.0 [facility] [place] Microalb:Creat Ratio,Random URon 09-20-2024 Creatinine [Mass/Vol] 118.00 mg/dL Normal 28.00-217.00 [facility] [place] Comment on above: Performed By: #### L 506.0400, L3100.7750, L506.1001, L502.0250 ####[facility] [place] [address] [place], [address] MALB:CREAT 63.6 mg/g CRE Normal [facility] [place] Comment on above: Performed By: #### L 506.0400, L3100.7750, L506.1001, L502.0250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 thrombosis) Chronic anticoagulation Type 1 diabetes mellitus Abnormal angiogram HTN (hypertension) Hyperlipidemia Home Medications ???Medication ???Instructions ???Recorded ???Last Taken ???Type aspirin 81 mg tablet,delayed 81 mg PO DAILY 30 days #30 tabs Unknown Rx release (Adult Low Dose Aspirin) insulin syr/ndl U100 half jesús 0.3 #100 ea 03/14/23 Unknown Rx mL 30 gauge x 1/2 metoprolol succinate 100 mg 100 mg PO DAILY 30 days #30 tabs 0 07/13/23 Unknown Rx tablet,extended release 24 hr (Toprol XL) pen needle, diabetic 32 gauge x #1,200 ea 07/13/23 Unknown Rx /32 (BD Ultra-Fine Elyssa Pen Needle) blood sugar diagnostic (OneTouch #100 ea 07/17/23 Unknown Rx Verio test strips) blood-glucose meter (OneTouch #1 ea 07/17/23 Unknown Rx Verio Flex Meter) lancets 30 gauge (Onetouch Delica #200 ea 07/17/23 Unknown Rx Safety Lancet) amitriptyline 25 mg tablet 25 mg PO QHS 09/06/23 Unknown Hist ory desvenlafaxine succinate 25 mg 25 mg PO DAILY #30 tabs 09/06/23 U nknown Rx tablet,extended release 24 hr (Pristiq) Guardian 4 Glucose Sensor #10 ea 11/02/23 Unknown Rx (blood-glucose sensor) blood-glucose transmitter #1 ea 11/15/23 Unknown Rx (Guardian 4 Transmitter device) cariprazine 1.5 mg capsule 1.5 mg PO QDAY 12/06/23 Unknown Hi story (Vraylar) eszopiclone 2 mg tablet 2 mg PO QHS 12/06/23 Unknown Histo ry pregabalin 300 mg capsule 300 mg PO BID 01/11/24 Unknown His tory atorvastatin 40 mg tablet 40 mg PO DAILY 30 days #30 tabs Unknown Rx blood pressure monitor #1 ea 07/15/24 Unknown Rx cilostazol 100 mg tablet 100 mg PO BID #60 tabs 07/15/24 Un known Rx fenofibrate nanocrystallized 145 145 mg PO DAILY #30 tabs 07/15/24 Unknown Rx mg tablet levothyroxine 112 mcg capsule 112 mcg PO DAILY #30 caps 07/15/24 Unknown Rx losartan 25 mg tablet 25 mg PO DAILY #30 tabs 07/15/24 U nknown Rx pantoprazole 40 mg tablet,delayed 40 mg PO BID #60 tabs 07/15/24 Un known Rx release (Protonix) warfarin 10 mg tablet 15 mg (1.5 x 10 mg) PO DAILY #45 0 07/15/24 Unknown Rx tabs insulin lispro 200 unit/mL (3 mL) 350 unit (1.75 mL) subcut 5 Unknown Rx subcutaneous pen (Humalog KwikPen .continuous #52.5 mL U-200 Insulin) Allergy/AdvReac Type Severity Reaction Status Date / Time morphine Allergy Intermediate Rash Verified 08/30/24 17:38 orange Allergy Rash Verified 08/30/24 17:38 Family History Father Hypertension Cancer lung Diabetes Mother Diabetes Hypertension Cancer bladder Dementia Surgical History H/O section History of revascularization procedure of lower extremity Hx of cholecystectomy History of intravascular stent placement Tubal ligation status History of below-knee amputation (more content not included)... [facility] HIP, UNI W/ Pelvis 2-3 Views on 08-30-2024 HIP, UNI W/ Pelvis 2-3 Views [facility] Imaging Services [address] [place] [address] HIP, UNI W/ Pelvis 2-3 Views MR#: [id number] Acct: [id number] Name: VENANCIO FOREMAN Rep #: [id number] : 1985 F 38 From: Flavio Brown MD PCP: Dr. Autumn Whitt MD Status: [facility] ER Study: HIP, UNI W/ Pelvis 2-3 Views Date of Exam: Exam# [id number] Ordering Dr: Sergio Vogel DO PROCEDURE: HIP, UNI W/ PELVIS 2-3 VIEWS 08/30/2024 REASON FOR EXAM: INJURY/PAIN TECHNIQUE: 3 views of the right hip. COMPARISON: None. FINDINGS: No evidence of acute fracture or dislocation. No acute soft tissue abnormalities. RAD/HIP, UNI W/ Pelvis 2-3 Views IMPRESSION: NO ACUTE FRACTURE OR DISLOCATION. If acute hip fracture is suspected after a fall or minor trauma and initial radiographs are negative then MRI of the pelvis and affected hip without IV contrast or CT of the pelvis and hips without IV contrast is usually appropriate as the next imaging study. (ACR Appropriateness Criteria: Acute Hip Pain-Suspected Fracture 2018) Reading Location: [id number] CC: Dr. Autumn Whitt MD; Dr. Sergio Vogel DO Polisher Brass: Signed Normal [facility] Shoulder min 2 Viewson 08-30 Shoulder min 2 Views [facility] Imaging Services [address] [place] [address] Shoulder min 2 Views MR#: [id number] Acct: [id number] Name: VENANCIO FOREMANJAVED Rep #: [id number] : 1985 F 38 From: Flavio Brown MD PCP: Dr. Autumn Whitt MD Status: REG ER Study: Shoulder min 2 Views Date of Exam: 08/30/24 Exam# [id number] Ordering Dr: Sergio Vogel DO PROCEDURE: SHOULDER MIN 2 VIEWS 08/30/2024 REASON FOR EXAM: INJURY/PAIN TECHNIQUE: Five views of the right shoulder. COMPARISON: None. FINDINGS: No evidence of acute fracture or dislocation. The joint spaces are maintained. The soft tissues are unremarkable. RAD/Shoulder min 2 Views IMPRESSION: No acute osseous abnormality. Reading Location: [id number] CC: Dr. Autumn Whitt MD; Dr. Sergio Vogel DO Polisher Brass: Signed Normal [facility] Spine Cervical without Contr ason 08-30-2024 Spine Cervical without Contras [facility] Imaging Services [address] [place], [place] [id number] Spine Cervical without Contras MR#: [id number] Acct: [id number] Name: CORBY,VENANICO MALIAJAVED Rep #: [id number] : 1985 F 38 From: Flavio Brown MD PCP: Dr. Autumn Whitt MD Status: REG ER Study: Spine Cervical without Contras Date of Exam: 0 08/30/24 Exam# [id number] Ordering Dr: Sergio Vogel DO PROCEDURE: SPINE CERVICAL WITHOUT CONTRAS 08/30/2024 REASON FOR EXAM: INJURY/PAIN TECHNIQUE: Cervical spine CT without contrast. Coronal and Sagittal reconstruction series were provided. One or more dose reduction techniques were used (e.g., Automated exposure control, adjustment of the mA and/or kV according to patient size, use of iterative reconstruction technique RADIATION DOSE SUMMARY: CTDlvol: 22.72 mGy DLP: 449.54 mGycm COMPARISON: 02/28/2024 FINDINGS: No evidence of acute fracture or dislocation. Vertebral body heights are maintained. Mild discogenic degenerative changes of the visualized spine. The prevertebral soft tissues are unremarkable. CT/Spine Cervical without Contras IMPRESSION: NO ACUTE CERVICAL FRACTURE Reading Location: [id number] CC: Dr. Autumn Whitt MD; Dr. Sergio Vogel DO Polisher Brass: Signed Normal [facility] Tibia Fibula 2 Viewson 08-30 Tibia Fibula 2 Views [facility] Imaging Services [address] [place] [address] Tibia Fibula 2 Views MR#: [id number] Acct: [id number] Name: VENANCIO FOREMAN Rep #: [id number] : 1985 F 38 From: Hilary Brady PCP: Dr. Autumn Whitt MD Status: REG ER Study: Tibia Fibula 2 Views Date of Exam: 08/30/24 Exam# [id number] Ordering Dr: Sergio Vogel DO EXAM: Right tib fib radiographs CLINICAL HISTORY: Trauma COMPARISON: None TECHNIQUE: Two views of the right tibia and fibula RAD/Tibia Fibula 2 Views IMPRESSION: No acute fracture or dislocation. Chronic appearing deformity of the distal fibula may be sequelae of prior injury. No acute soft tissue abnormalities. No radiographic foreign body. Reading Location: [facility] CC: Dr. Autumn Whitt MD; Dr. Sergio Vogel, DO Polisher Brass: Signed [facility] Endocrinology Visit Reporton 08-15-2024 Endocrinology Visit Report [facility] [address] [place] [address] OFFICE VISIT Date of Service: 08/15/24 MR#: [id number] Acct: [id number] Name: VENANCIO FOREMAN Rep #: [id number] : 1985 Provider: SANDI owens Age/Sex: 38/F Location: [facility] Status: Signed Intake Vital Signs 03/07/24 14:07 07/15/24 08:06 08/15/24 14:43 Height 5 ft 6 in 5 ft 6 in 5 ft 6 in Weight: 176 lb 2 oz BMI 28.4 BP 128/75 H Blood Pressure Location Lt brachial Position Sitting Pulse 98 Pulse Source Monitor Pulse Oximetry (%) 92 Oxygen Delivery Method room air Intake Visit Reasons: 3 M FU Chief Complaint: f/u diabetes, hypothyroid, and hypertension Is patient in pain?: No Allergies morphine Allergy (Intermediate, Verified 08/15/24 14:48) Rash orange Allergy (Verified 08/15/24 14:48) Rash Medications ???Medication ???Instructions ???Recorded ???Confirmed ???Type aspirin 81 mg tablet,delayed 81 mg PO DAILY 30 days #30 tabs 08/15/24 Rx release (Adult Low Dose Aspirin) insulin syr/ndl U100 half jesús 0.3 #100 ea 03/14/23 08/15/24 Rx mL 30 gauge x 1/2 metoprolol succinate 100 mg 100 mg PO DAILY 30 days #30 tabs 0 07/13/23 08/15/24 Rx tablet,extended release 24 hr (Toprol XL) pen needle, diabetic 32 gauge x #1,200 ea 07/13/23 08/15/24 Rx 5/32 (BD Ultra-Fine Elyssa Pen Needle) blood sugar diagnostic (OneTouch #100 ea 07/17/23 08/15/24 Rx Verio test strips) blood-glucose meter (OneTouch #1 ea 07/17/23 08/15/24 Rx Verio Flex Meter) lancets 30 gauge (Onetouch Delica #200 ea 07/17/23 08/15/24 Rx Safety Lancet) amitriptyline 25 mg tablet 25 mg PO QHS 09/06/23 08/15/24 His tory desvenlafaxine succinate 25 mg 25 mg PO DAILY #30 tabs 09/06/23 0 08/15/24 Rx tablet,extended release 24 hr (Pristiq) Guardian 4 Glucose Sensor #10 ea 11/02/23 08/15/24 Rx (blood-glucose sensor) blood-glucose transmitter #1 ea 11/15/23 08/15/24 Rx (Guardian 4 Transmitter device) cariprazine 1.5 mg capsule 1.5 mg PO QDAY 12/06/23 08/15/24 H istory (Vraylar) eszopiclone 2 mg tablet 2 mg PO QHS 12/06/23 08/15/24 Hist ory pregabalin 300 mg capsule 300 mg PO BID 01/11/24 08/15/24 Hi story atorvastatin 40 mg tablet 40 mg PO DAILY 30 days #30 tabs 08/15/24 Rx blood pressure monitor #1 ea 07/15/24 08/15/24 Rx cilostazol 100 mg tablet 100 mg PO BID #60 tabs 07/15/24 Rx fenofibrate nanocrystallized 145 145 mg PO DAILY #30 tabs 07/15/24 08/15/24 Rx mg tablet levothyroxine 112 mcg capsule 112 mcg PO DAILY #30 caps 07/15/24 08/15/24 Rx losartan 25 mg tablet 25 mg PO DAILY #30 tabs 07/15/24 0 08/15/24 Rx pantoprazole 40 mg tablet,delayed 40 mg PO BID #60 tabs 07/15/24 Rx release (Protonix) warfarin 10 mg tablet 15 mg (1.5 x 10 mg) PO DAILY #45 0 07/15/24 08/15/24 Rx tabs insulin lispro 200 unit/mL (3 mL) 350 unit (1.75 mL) subcut 5 Rx subcutaneous pen (Humalog KwikPen .continuous #52.5 mL U-200 Insulin) [facility] Medical History Xanthelasmatosis Abdominal pain Nausea, vomiting, and diarrhea DKA (diabetic ketoacidosis) Anemia Bipolar disorder Anxiety Depression GERD (gastroesophageal reflux disease) Former smoker Migraines Headache DVT (deep venous thrombosis) Chronic anticoagulation Type 1 diabetes mellitus Abnormal angiogram HTN (hypertension) Hyperlipidemia Surgical History H/O section History of revascularization procedure of lower extremity Hx of cholecystectomy History of intravascular stent placement Tubal ligation status History of below-knee amputation of left lower extremity S/P BKA (below knee amputation) unilateral Family History Father Hypertension Cancer lung Diabetes Mother Diabetes Hypertension Cancer bladder Dementia Social History household members: spouse and children housing: house current occupational status: disabled current occupation: for [employer] Smoking Status: Former smoker quit date: 04/03/19 pack-years: 20 Electronic Cigarette Use: not used alcohol intake: never substance use type: does not use what type of physical activity do you participate in: none seatbelt use: always do you feel safe at home: Yes HPI HPI Chief Complaint: f/u diabetes, hypothyroid, and hypertension Details: VENANCIO FOREMAN, is a 38 F who presents to the office today for evaluation and management of diabetes, hypothyroid, and hypertension. A1C today is 7.1%, improved slightly from (more content not included)... [facility] Internal Medicine Office Vis leon 07-14-2024 Internal Medicine Office Visit [facility] [address] [place] [address] [place] [address] OFFICE VISIT Date of Service: 07/15/24 MR#: [id number] Acct: [id number] Name: VENANCIO FOREMAN Rep #: [id number] : 1985 Provider: Dr. Autumn michaels MD Age/Sex: 38/F Location: [facility] Status: Signed Intake Vital Signs 03/07/24 14:07 07/15/24 08:06 Height 5 ft 6 in 5 ft 6 in Weight: 181 lb BMI 29.2 BP 100/62 Blood Pressure Location Lt brachial Position Sitting Respiration 18 Pulse 104 H Pulse Source Monitor Temp 97.2 F L Temp Source Temporal Pulse Oximetry (%) 96 Oxygen Delivery Method room air Intake Visit Reasons: [facility] Lubricating Specialist Required: No Accompanied by: Is patient in pain?: No Allergies morphine Allergy (Intermediate, Verified 07/15/24 07:58) Rash orange Allergy (Verified 07/15/24 07:58) Rash Medications ???Medication ???Instructions ???Recorded ???Confirmed ???Type aspirin 81 mg tablet,delayed 81 mg PO DAILY 30 days #30 tabs 07/15/24 Rx release (Adult Low Dose Aspirin) insulin syr/ndl U100 half jesús 0.3 #100 ea 03/14/23 07/15/24 Rx mL 30 gauge x 1/2 metoprolol succinate 100 mg 100 mg PO DAILY 30 days #30 tabs 0 07/13/23 07/15/24 Rx tablet,extended release 24 hr (Toprol XL) pen needle, diabetic 32 gauge x #1,200 ea 07/13/23 07/15/24 Rx 5/32 (BD Ultra-Fine Elyssa Pen Needle) blood sugar diagnostic (OneTouch #100 ea 07/17/23 07/15/24 Rx Verio test strips) blood-glucose meter (OneTouch #1 ea 07/17/23 07/15/24 Rx Verio Flex Meter) lancets 30 gauge (Onetouch Delica #200 ea 07/17/23 07/15/24 Rx Safety Lancet) amitriptyline 25 mg tablet 25 mg PO QHS 09/06/23 07/15/24 His tory desvenlafaxine succinate 25 mg 25 mg PO DAILY #30 tabs 09/06/23 0 07/15/24 Rx tablet,extended release 24 hr (Pristiq) Guardian 4 Glucose Sensor #10 ea 11/02/23 07/15/24 Rx (blood-glucose sensor) insulin lispro 200 unit/mL (3 mL) 350 unit (1.75 mL) subcut 07/15/24 Rx subcutaneous pen (Humalog KwikPen .continuous #52.3 mL U-200 Insulin) blood-glucose transmitter #1 ea 11/15/23 07/15/24 Rx (Guardian 4 Transmitter device) cariprazine 1.5 mg capsule 1.5 mg PO QDAY 12/06/23 07/15/24 H istory (Vraylar) eszopiclone 2 mg tablet 2 mg PO QHS 12/06/23 07/15/24 Hist ory pregabalin 300 mg capsule 300 mg PO BID 01/11/24 07/15/24 Hi story atorvastatin 40 mg tablet 40 mg PO DAILY 30 days #30 tabs 07/15/24 Rx blood pressure monitor #1 ea 07/15/24 07/15/24 Rx cilostazol 100 mg tablet 100 mg PO BID #60 tabs 07/15/24 Rx fenofibrate nanocrystallized 145 145 mg PO DAILY #30 tabs 07/15/24 07/15/24 Rx mg tablet levothyroxine 112 mcg capsule 112 mcg PO DAILY #30 caps 07/15/24 07/15/24 Rx losartan 25 mg tablet 25 mg PO DAILY #30 tabs 07/15/24 0 07/15/24 Rx pantoprazole 40 mg tablet,delayed 40 mg PO BID #60 tabs 07/15/24 Rx release (Protonix) warfarin 10 mg tablet 15 mg (1.5 x 10 mg) PO DAILY #45 0 07/15/24 07/15/24 Rx tabs Nurse's Note: needs everything refilled. Sees a therapist. Suzi cuba [facility]. 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 [facility] Medical History Xanthelasmatosis Abdominal pain Nausea, vomiting, and diarrhea DKA (diabetic ketoacidosis) Anemia Bipolar disorder Anxiety Depression GERD (gastroesophageal reflux disease) Former smoker Migraines Headache DVT (deep venous thrombosis) Chronic anticoagulation Type 1 diabetes mellitus Abnormal angiogram HTN (hypertension) Hyperlipidemia Surgical History H/O section History of revascularization procedure of lower extremity Hx of cholecystectomy History of intravascular stent placement Tubal ligation status History of below-knee amputation of left lower extremity S/P BKA (below knee amputation) unilateral Family History Father Hypertension Cancer lung Diabetes Mother Diabetes Hypertension Cancer bladder Dementia Social History household members: spouse and children housing: house current occupational status: disabled current occupation: for [employer] Smoking Status: Former smoker quit date: 04/03/19 pack-years: 20 Electronic Cigarette Use: not used alcohol intake: never substance use type: does not use what type of physical activity do you participate in: none seatbelt use: always do you feel safe at home: Yes Questionnaire PQH-9 BMS Over the last 2 weeks, how often have you been bothered by any of the following problems? 1. Little int (more content not included)... Normal [facility] BMP with eGFR DAILYon 2024 AGE 38 years Normal [facility] Comment on above: Performed By: #### 2 [id number] #### [facility],[address] [place] [address] 69478 Anion gap [Moles/Vol] 16 mmol/L Normal 10 - 20 [facility] Comment on above: Performed By: #### 2 34582 #### [facility],[address] [place] [address] 12518 BMP with eGFR DAILY Normal [facility] Comment on above: Result Comment: JUSTIN Betts METABOLIC PANEL Performed By: #### 2 30427 #### [facility],[address] [place] [address] 72971 Calcium [Mass/Vol] 8.9 mg/dL Normal 8.5 - 10.1 [facility] Comment on above: Performed By: #### 2 22265 #### [facility],[address] [place] [address] 15758 Chloride [Moles/Vol] 105 mmol/L Normal 98 - 107 [facility] Comment on above: Performed By: #### 2 26792 #### [facility],[address] [place] [address] 06057 CO2 [Moles/Vol] 23.9 mmol/L Normal 21.0 - 32.0 [facility] Comment on above: Performed By: #### 2 29658 #### [facility],[address] [place] [address] 18209 Creatinine [Mass/Vol] 0.76 mg/dL Normal 0.55 - 1.02 [facility] Comment on above: Performed By: #### 2 49534 #### [facility],[address] [place] [address] 85215 GFR/1.73 sq M.predicted among non-blacks MDRD (S/P/Bld) [Vol rate/Area] mL/min/{1.73_m2} Normal 60 - 999 [facility] Comment on above: Performed By: #### 2 15945 #### [facility],[address] [place] [address] Result Comment: ACCO RDING TO THE NATIONAL KIDNEY DISEASE EDUCATION PROGRAM(NKDE), A NORMAL eGFR IS A VALUE GREATER THAN OR EQUAL TO 60 ML/MIN/1.73 SQ METERS. CHRONIC KIDNEY DISEASE: <60mL/MIN/1.73 SQ METERS KIDNEY FAILURE: <15mL/MIN/1.73 SQ METERS THIS TEST SHOULD ONLY BE USED FOR PATIENTS 18 YEARS OF AGE AND OLDER. Glucose [Mass/Vol] 116 mg/dL High 74 - 106 [facility] Comment on above: Performed By: #### 2 37913 #### [facility],[address] [place] [address] 86234 Potassium [Moles/Vol] 3.6 mmol/L Normal 3.5 - 5.1 [facility] Comment on above: Performed By: #### 2 90403 #### [facility],[address] [place] [address] 32242 Sodium [Moles/Vol] 141 mmol/L Normal 136 - 145 [facility] Comment on above: Performed By: #### 2 47721 #### [facility],[address] [place] [address] 02577 Urea nitrogen [Mass/Vol] 15 mg/dL Normal 7 - 18 [facility] Comment on above: Performed By: #### 2 28470 #### [facility],[address] [place] [address] 44510 CBC DAILYon 04-11-2024 Baso # 0.02 x10EE3/UL Normal 0.00 - 0.10 [facility] Comment on above: Performed By: #### 2 47435 #### [facility],[address] [place], [place] [address] Basophils/100 WBC (Bld) 0.2 % Normal 0.0 - 2.0 [facility] Comment on above: Performed By: #### 2 10787 #### [facility],[address] [place] [address] EO # 0.17 x10EE3/UL Normal 0.00 - 0.50 [facility] Comment on above: Performed By: #### 2 01206 #### [facility],[address] [place] [address] 93666 Eosinophils/100 WBC (Bld) 2.5 % Normal 0.0 - 7.0 [facility] Comment on above: Performed By: #### 2 89349 #### [facility],[address] [place] [address] 45302 Erythrocyte distribution width (RBC) [Ratio] 14.6 % Normal 12.0 - 15.6 [facility] Comment on above: Performed By: #### 2 39648 #### [facility],[address] [place], [place] [address] Hematocrit (Bld) [Volume fraction] 41.4 % Normal 34.0 - 46.0 [facility] Comment on above: Performed By: #### 2 67131 #### [facility],[address] [place] [address] 92775 Hemoglobin (Bld) [Mass/Vol] 14.7 g/dL Normal 12.0 - 16.0 [facility] Comment on above: Performed By: #### 2 79853 #### [facility],[address] [place] [address] Lymph # 2.50 x10EE3/UL Normal 0.80 - 2.80 [facility] Comment on above: Performed By: #### 2 34803 #### [facility],[address] [place] [address] Lymphocytes/100 WBC (Bld) 38.2 % Normal 20.0 - 45.0 [facility] Comment on above: Performed By: #### 2 87400 #### [facility],[address] [place] [address] MANUAL DIFF N/A Normal [facility] Comment on above: Performed By: #### 2 47910 #### [facility],[address] [place] [address] MCH (RBC) [Entitic mass] 28 pg Normal 27 - 33 [facility] Comment on above: Performed By: #### 2 61071 #### [facility],[address] [place] [address] MCHC 36 X10 3 Normal 32 - 36 [facility] Comment on above: Performed By: #### 2 82259 #### [facility],[address] [place], [place] [address] MCV (RBC) [Entitic vol] 80 fL Normal 80 - 99 [facility] Comment on above: Performed By: #### 2 24887 #### [facility],[address] [place] [address] 79809 [place] # 0.43 x10EE3/UL Normal 0.20 - 1.00 [facility] Comment on above: Performed By: #### 2 79240 #### [facility],[address] [place] [address] 27073 MONOS % 6.6 % Normal 0.0 - 10.0 [facility] Comment on above: Performed By: #### 2 16503 #### [facility],[address] [place] [address] 63067 Morphology Abdelrahman (Bld) [Interp] N/A Normal [facility] Comment on above: Performed By: #### 2 91748 #### [facility],[address] [place] [address] 35988 Neut # 3.44 x10EE3/UL Normal 1.50 - 7.10 [facility] Comment on above: Performed By: #### 2 72125 #### [facility],[address] [place] [address] 89075 Neutrophils/100 WBC (Bld) 52.5 % Normal 46.0 - 76.0 [facility] Comment on above: Performed By: #### 2 28528 #### [facility],[address] [place] [address] 29228 PLATELET 212 x10EE3/UL Normal 150 - 450 [facility] Comment on above: Performed By: #### 2 15246 #### [facility],[address] [place] [address] 41208 Platelet mean volume (Bld) [Entitic vol] 9.2 fL Normal 6.6 - 10.5 [facility] Comment on above: Result Comment: AUTO MATED DIFFERENTIAL Performed By: #### 2 29658 #### [facility],[address] [place] [address] 48310 RBC 5.20 x 10EE6/UL Normal 4.10 - 5.30 [facility] Comment on above: Performed By: #### 2 47153 #### [facility],[address] [place] [address] 41811 WBC 6.6 x 10EE3/UL Normal 4.5 - 10.8 [facility] Comment on above: Performed By: #### 2 85508 #### [facility],[address] [place] [address] 78015 CORONAVIRUS PCR - [facility] 04-11-2024 SARS-CoV-2 (COVID-19) RNA JOHN+probe Ql (Unsp spec) Negative Normal NORMAL: NEGATIVE [facility] Comment on above: Performed By: #### 2 23842 ####[address] [address] SEND TO IC? NO Normal [facility] Comment on above: Result Comment: RESU LTS FAXED TO INFECTION CONTROL. SARS-CoV-2 THIS TEST IS BEING USED UNDER THE FDA EUA PROCEDURE. THIS ASSAY HAS BEEN VALIDATED IN THE [facility] FOR USE WITH NASOPHARYNGEAL SPECIMENS IN [facility]. INTERPRETIVE DATA LABORATORY TEST RESULTS SHOULD ALWAYS BE CONSIDERED IN THE CONTEXT OF CLINICAL OBSERVATIONS AND EPIDEMIOLOGICAL DATA IN MAKING FINAL DIAGNOSIS AND PATIENT MANAGEMENT DECISIONS. PATIENT MANAGEMENT SHOULD FOLLOW CURRENT CDC GUIDELINES. A POSITIVE TEST RESULT FOR COVID-19 INDICATES THAT RNA FROM SARS-CoV-2 WAS DETECTED, AND THE PATIENT IS INFECTED WITH THE VIRUS AND PRESUMED TO BE CONTAGIOUS. A NEGATIVE TEST RESULT FOR THIS TEST MEANS THAT SARS-CoV-2 RNA WAS NOT PRESENT IN THE SPECIMEN ABOVE THE LIMIT OF DETECTION. HOWEVER, A NEGATVIE RESULT DOES NOT RULE OUT COVID-19 AND SHOULD NOT BE USED THE SOLE BASIS FOR TREATMENT OR PATIENT MANAGEMENT DECISIONS. A NEGATIVE RESULT DOES NOT EXCLUDE THE POSSIBILITY OF COVID-19. WHEN DIAGNOSTIC TESTING IS NEGATIVE, THE POSSIBLILTY OF A FALSE NEGATIVE RESULT SHOULD BE CONSIDERED IN THE CONTEXT OF A PATIENT'S RECENT EXPOSURES AND THE PRESENCE OF CLINICAL SIGNS AND SYMPTOMS CONSISTENT WITH COVID-19. THE POSSIBILITY OF A FALSE NEGATIVE RESULT SHOULD ESPECIALLY BE CONSIDERED IF THE PATIENT'S RECENT EXPOSURES OR CLINICAL PRESENTATION INDICATE THAT COVID-19 IS LIKELY, AND DIAGNOSTIC TESTS FOR OTHER CAUSES OF ILLNESS (e.g., OTHER RESPIRATORY ILLNESS) ARE NEGATIVE. IF COVID-19 IS STILL SUSPECTED BASED ON EXPOSURE HISTORY TOGETHER WITH OTHER CLINICAL FINDINGS, RE-TESTED SHOULD BE CONSIDERED BY HEALTHCARE PROVIDERS IN CONSULTATION WITH PUBLIC HEALTH AUTHORITIES. Performed By: #### 2 [id number] ####[address] [address] ED MED ADMINISTRATION DETAIL on 04-11-2024 ED MED ADMINISTRATION DETAIL Table 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 Medication Administration Record [address] [place] [address] [id number] 04/10/2024 Patient: VENANCIO FOREMAN Sex: Female : 1985 Age: 38y MEASUREMENTS: Wt: 86.2 kg, Ht/Manny: 66.0 in, BMI: 30.67 ALLERGIES: morphine, orange Medication Ordered Medication Administration Date/Time Zofran IVP 4 mg 17:53 04/10 Zofran IVP 4 mg given via Site# 1. Allergies verified Given (NOW x1) and confirmed 5 rights. IV patency established. IV site checked: no 17:53 04/10/2024 pain, redness, or swelling. IV flushed thoroughly pre-medication Colton Davis R.N. administration. IVP given by nurse. Information reviewed with Scanned patient including reason for taking this medication, signs of allergic reaction and precautions. Verbalizes understanding. - 17:53 Colton Davis R.N. HYDROmorphone 17:53 04/10 HYDROmorphone (Dilaudid) IVP 0.5 mg given via Given (Dilaudid) IVP 0.5 Site# 1. Allergies verified and confirmed 5 rights. IV patency 17:53 04/10/2024 mg (NOW x1, HIGH established. IV site checked: no pain, redness, or swelling. IV Colton Davis R.N. ALERT flushed thoroughly pre-medication administration. IVP given by Scanned MEDICATION) nurse. Information reviewed with patient including reason for taking this medication, signs of allergic reaction, precautions and sedative warning. Verbalizes understanding. Medication Wastage: 0.5 mg wasted. - 17:53 Colton Davis R.N. 18:04/10 Medication Response: Symptoms are the same. The patient feels the same. 18:04/10/2024. RR: 16. Regular and unlabored. Pain level now 11/10. - 19:12 Beckie RocheN. 1 of 3 Table 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 Medication Ordered Medication Administration Date/Time NitroGLYCERIN SL 18:47 04/10 NitroGLYCERIN SL 0.4 mg given. Allergies verified Given 0.4 mg (NOW x1); and confirmed 5 rights. Information reviewed with patient and 18:47 04/10/2024 (Sched: q5m X3) 1 spouse including reason for taking this medication, signs of allergic Dania Roche.N. of 3 reaction and precautions. Verbalizes understanding. - 18:47 Colton Brendan Daivs RAdNAd NitroGLYCERIN SL 19:07 0108 NitroGLYCERIN SL 0.4 mg given. Allergies verified Given 0.4 mg (NOW x1); and confirmed 5 rights. Information reviewed with patient. 19:07 04/10/2024 (Sched: q5m X3) 2 Verbalizes understanding. (BP 120/59, HR 84. Pain reports 8/10 Mili Garibay R.N. of 3 sharp chest pain and radiates to her back). - 19:08 Mili Brendan Garibay R.N. NitroGLYCERIN SL 19:16 01 NitroGLYCERIN SL 0.4 mg given. Allergies verified Given 0.4 mg (NOW x1); and confirmed 5 rights. Information reviewed with patient. 19:16 04/10/2024 (Sched: q5m X3) 3 Verbalizes understanding. (Patient reports 8/10 sharp chest pain Mili Garibay R.N. of 3 that radiates to her back. BP 113/58, HR 91). - 19:18 Mili Brendan Garibay R.N. Zofran IVP 4 mg 19:51 01 Zofran IVP 4 mg given via Site# 1. Allergies verified Given (NOW x1) and confirmed 5 rights. IV patency established. IV site checked: no 19:51 04/10/2024 pain, redness, or swelling. IV flushed thoroughly pre-medication Mili Garibay R.N. administration. Information reviewed with patient. Verbalizes Scanned understanding. - 19:54 Mili Garibay R.N. IV NS 0.9 % 1000 19:50 04/10 IV NS 0.9 % 1000 mL started in bag#1 1000 mL at Started mL at 500 mL/hr 500 mL/hr via Site# 1. Allergies verified and confirmed 5 rights. IV 19:50 04/10/2024 (NOW x1) patency established. IV site checked: no pain, redness, or swelling. Mili Garibay R.N. IV flushed thoroughly pre-medication administration. Information Stopped reviewed with patient. Verbalizes understanding. - 19:50 Mili 21:00 04/10/2024 Roxy Garibay R.N. Scanned 21:00 04/10 Medication Discontinued: bag #1 completed. Total amount infused: 1000 mL. IV patency established. IV site checked: no pain, redness, or swelling. IV flushed thoroughly post-medication administration. - 02:27 Mili Garibay R.N. 2 of 3 Table 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 Medication Ordered Medication Administration Date/Time HYDROmorphone 19:50 04/10 HYDROmorphone (Dilaudid) IVP 0.5 mg given via Given (Dilaudid) IVP 0.5 Site# 1. Allergies verified and confirmed 5 rights. IV patency 19:50 04/10/2024 mg (NOW x1, HIGH established. IV site checked: no pain, redness, or swelling. IV Mili Garibay R.N. ALERT flushed thoroughly pre-medication administration. Information Scanned MEDICATION) reviewed with patient including sedative warning. Verbalizes understanding. Medication Wastage: 0.5 mg wasted. - 19:51 Mili Garibay R.N. 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 Primary physician ([facility]). Triage time: 17:04/10/2024. Acuity: LEVEL 3. Chief Complaint: CHEST PAIN. The patient has had nausea and vomiting. SEPSIS SCREEN: NEGATIVE. SIRS criteria negative: heart rate greater than 90. No possible sources of infection. -- 17:04/10/24 MIKE Szymanski R.N. 17:04/10/24. BP: 149/85 MAP: 106. HR: 102. RR: 18. O2 saturation: 96% Temperature: 98 F. Pain level now 8/10. -- 17:04/10/24 MIKE Szymanski R.N. Measurements: 17:04/10/24 Wt: 86.2 kg, Ht/Manny: 66.0 in, BMI: 30.67 -- 17:04/10/24 EST Jv Szymanski R.N. Medications: metoprolol tartrate 50 mg tablet: 50 mg once a day. -- 17:04/10/24 EST Jv Szymanski R.N. levothyroxine 112 mcg tablet: 112 mcg once a day . -- 20:04/10/24 EST Mili Garibay R.N. lovastatin oral: 40 mg once a day . -- 20:04/10/24 EST Mili Garibay R.N. metoprolol tartrate 50 mg tablet: 50 mg once a day for hypertension. -- 20:04/10/24 EST Mili Garibay R.N. 1 of 6 Nurse Narrative warfarin 10 mg tablet: 15 mg once a day for deep vein thrombosis prevention. -- 20:04/10/24 EST Mili Garibay R.N. fenofibrate 120 mg tablet: 120 mg once a day for hypercholesterolemia. -- 20:04/10/24 EST Mili Garibay R.N. HumaLOG U-100 Insulin 100 unit/mL subcutaneous cartridge: 1 sliding scale dose as needed, as needed for type 1 diabetes mellitus. (Insulin pump) -- 20:04/10/24 EST Mili Garibay R.N. Ambien 10 mg tablet: 10 mg once a day at bedtime for sleep-onset insomnia. -- 20:04/10/24 EST Mili Garibay R.N. Allergies: morphine: Side Effect; rash -- 17:04/10/24 EST Jv Szymanski R.N. orange -- 17:04/10/24 EST Jv Szymanski R.N. Problems: Hypertension -- 17:04/10/24 EST Jv Szymanski R.N. Diabetes Mellitus Type 1 -- 17:04/10/24 EST Jv Szymanski R.N. Hyperlipidemia -- 17:04/10/24 EST Jv Szymanski R.N. Tachycardia -- 17:04/10/24 EST Jv Szymanski R.N. Hyperthyroidism -- 17:04/10/24 MIKE Szymanski R.N. 17:04/10/24. Preferred pharmacy ([facility]). -- 17:04/10/24 MIKE Szymanski R.N. ADDITIONAL SURGERIES: . x3 -- 17:04/10/24 MIKE Szymanski R.N. Amputation Below Knee -- 17:04/10/24 MIKE Szymanski R.N. Angioplasty of vein. for blood clot -- 17:04/10/24 MIKE Szymanski R.N. Tubal Ligation -- 17:04/10/24 MIKE Szymanski R.N. History 17:04/10/24. SOCIAL HX: Never smoker. Alcohol use. Drug use. The patient has not traveled outside the [place] Infectious disease exposure: No infectious disease exposure. 2 of 6 Nurse Narrative ABUSE ASSESSMENT: The patient answered yes to the question(s) Do you feel safe in your home? and no to the question(s) Are you afraid to go home?. SELF HARM ASSESSMENT: Self harm assessment was performed. The patient answered no to the question(s) Have you recently felt down, depressed, or hopeless? and Do you have thoughts of harming or killing yourself?. FALL RISK ASSESSMENT: Fall risk assessment completed. No risk factors identified. -- 17:04/10/24 MIKE Szymanski R.N. Interventions 17:04/10/24. Identification band on patient. Advanced care plan (full code). -- 17:28 04/10/24 MIKE Szymanski R.N. PHYSICAL ASSESSMENT 17:45 04/10/24. Ambulatory to room. (Pt c/o nausea/vomiting x 5 days and chest pain for a few hours.). GENERAL / NEURO / PSYCH: Alert. Oriented X 4. Appears in pain. ( Denies diaphoresis). RESPIRATORY: Respirations not labored. Breath sounds within normal limits. ( Denies SOB). CVS: Heart sounds within normal limits. ( Reports left sided chest pain extending to epigastric area and radiating to back). Capillary refill less than 2 seconds. GI / : The patient has had nausea. Emesis noted. Abdomen soft and nontender. No diarrhea. No pain with urination, frequency of urination or urgency of urination. EXTREMITIES: No lower extremity edema. SKIN: Skin is warm and dry. -- 18:32 04/10/24 EST Colton Davis R.N. NURSING PROGRESS NOTES 17:04/10/24. 12-LEAD EKG: EKG time: (17:23 04/10/2024). 12-Lead EKG was performed by me and shown to the ED physician. -- 17:29 04/10/24 MIKE Quiñonezhel Saba 17:39 04/10/24. Site #1 started via IV in the left forearm with an 18g angiocath with aseptic technique and good blood return; 1 attempt. Blood drawn: rainbow set tube(s). Labeled in the presence of the patient and sent to the lab. Saline lock flushed with 5 mL saline. -- 17:52 04/10/24 MIKE Szymanski R.N. 17:45 04/10/24. Patient identifier (more content not included)... Normal [facility] ED ORDER SHEET (CPOE ONLY)on 04-11-2024 ED ORDER SHEET (CPOE ONLY) Order Sheet Order Sheet [address] 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 17:34 EST Jerri Berrios D.O. Reason for ordering with alerts: Benefits outweigh risks --17:04/10/2024 Jerri Berrios D.O. Zofran IVP4 mg (NOW x1) 17:33 04/10/2024 17:36 17:53 Jerri Berrios D.O. 04/10/2024 04/10/2024 Colton Roche R.N. RAdHeriberto HYDROmorphone (Dilaudid) 17:36 04/10/2024 17:36 17:53 IVP0.5 mg (NOW x1, HIGH Jerri Berrios D.O. 04/10/2024 04/10/2024 ALERT MEDICATION) Colton Roche R.N. R.N. Reason for ordering with alerts: Clinical consideration given --17:36 04/10/2024 Jerri Berrios D.O. NitroGLYCERIN SL0.4 mg 18:40 04/10/2024 18:43 18:47 (NOW x1); (Sched: q5m X3) 1 of Jerri Berrios D.O. 04/10/2024 04/10/2024 1 of 4 Order Sheet 3 Colton Roche, Roxy Ramsey NitroGLYCERIN SL0.4 mg 18:40 04/10/2024 19:08 (NOW x1); (Sched: q5m X3) 2 of Jerri Berrios D.O. 04/10/2024 3 Mili Garibay R.N. NitroGLYCERIN SL0.4 mg 18:40 04/10/2024 19:18 (NOW x1); (Sched: q5m X3) 3 of Jerri Berrios D.O. 04/10/2024 3 Mili Garibay R.N. Zofran IVP4 mg (NOW x1) 19:42 04/10/2024 19:54 Brayden Hernandez, 04/10/2024 Sam Garibay R.N. Reason for ordering with alerts: Benefits outweigh risks --19:42 04/10/2024 Brayden Hernandez D.O. IV NS 0.9 %1000 mL at 500 19:42 04/10/2024 19:50 mL/hr (NOW x1) Brayden Hernandez, 04/10/2024 Sam Garibay R.N. HYDROmorphone (Dilaudid) 19:42 04/10/2024 19:51 IVP0.5 mg (NOW x1, HIGH Brayden Hernandez, 04/10/2024 ALERT MEDICATION) Sam Garibay R.N. Reason for ordering with alerts: Benefits outweigh risks --19:42 04/10/2024 Brayden Hernandez D.O. LAB ORDERS Order Description Priority Entered Acknowledged Collected Completed CBC w Diff Stat Stat 17:33 04/10/2024 17:36 04/10/2024 17:42 04/10/2024 Colton Borden Lucas Eastep, D.O. R.N. R.NAd 2 of 4 Order Sheet CMP Stat Stat 17:33 04/10/2024 17:36 04/10/2024 17:42 04/10/2024 Cloton Borden Lucas Eastep, D.O. R.N. R.N. Troponin-I Stat Stat 17:33 04/10/2024 17:36 04/10/2024 17:42 04/10/2024 Colton Borden Lucas Eastep, D.O. R.N. R.N. PT with INR Stat Stat 17:33 04/10/2024 17:36 04/10/2024 17:42 04/10/2024 Colton Borden Lucas Eastep, D.O. R.N. R.NAd Troponin-I #2 (Sched: Stat 17:56 04/10/2024 18:43 04/10/2024 18:43 04/10/2024 q1h 1h); Stat 1 of 1 Colton Borden Lucas Eastep, D.O. R.N. R.NAd DIAGNOSTIC STUDY ORDERS Order Description Priority Entered Acknowledged Completed Chest 1V Stat Stat 17:33 04/10/2024 17:36 17:58 Jerri Berrios D.O. 04/10/2024 04/10/2024 Colton Roche R.N. R.N. Order Comments: 17:33 04/10/2024: Status: Not . Jerri Berrios D.O. Reason for Study: Chest Pain CT Chest PE Study Stat Stat 18:33 04/10/2024 18:33 19:03 Jerri Berrios D.O. 04/10/2024 04/10/2024 Mili Roche R.N. R.NAd Reason for Study: Chest Pain STAFF ORDERS 3 of 4 Order Sheet Order Description Priority Entered Acknowledged Collected Completed IV Saline Lock 17:33 04/10/2024 17:36 04/10/2024 17:42 04/10/2024 Colton Borden Lucas Eastep, D.O. R.N. R.N. [Electronically signed by Jerri Berrios D.O. (04/10/2024 19:13 EST)] [Electronically signed by Brayden Hernandez D.O. (04/11/2024 00:11 EST)] [Electronically signed by Brayden Hernandez D.O. 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 Arrived- By private vehicle. Historian- patient. HISTORY OF PRESENT ILLNESS Chief Complaint: CHEST PAIN. This started 3 hours. It is described as aching and it is described as located in the central chest area. At its maximum, severity described as moderate. The patient has had nausea and vomiting. Similar symptoms previously. None. Recent medical care: Not recently seen/assessed. REVIEW OF SYSTEMS GI: No abdominal pain or black stools. EYES: No blurred vision. SKIN: No skin rash. NEUROLOGICAL: No fainting episodes or headache. CVS: No pedal edema or calf pain. RESPIRATORY: No cough. CONSTITUTIONAL: No fever or chills. ENDO/HEME/LYMPH: No enlarged lymph nodes. MUSCULOSKELETAL: No joint pain. : No difficulty with urination. THROAT: No sore throat. Status: Not . 1 of 22 Narrative PAST HISTORY type 1 diabetes, hypertension tachycardia, DKA , DVT, oral anticoagulation with Coumadin. Diabetes Mellitus Type 1 Hyperlipidemia Hypertension Hyperthyroidism Tachycardia Surgeries: Amputation Below Knee Angioplasty of vein: (for blood clot) : (x3) Tubal Ligation Medications: metoprolol tartrate 50 mg tablet: 50 mg once a day. Allergies: morphine: Side Effect; rash orange SOCIAL HISTORY No alcohol use or drug use. ADDITIONAL NOTES The nursing notes have been reviewed. PHYSICAL EXAM Vital Signs: Have been reviewed. Appearance: Alert. Oriented X3. Eyes: Pupils equal, round and reactive to light. Eyes normal inspection. ENT: Pharynx normal. Neck: Normal inspection. 2 of 22 Narrative CVS: Tachycardia. Abnormal rhythm (regular rhythm). Pulses normal. Respiratory: No respiratory distress. Breath sounds normal. Abdomen: Soft. Skin: Skin warm and dry. Normal skin color. Extremities: Extremities exhibit normal ROM. No lower extremity edema. Neuro: Oriented X 3. No motor deficit. No sensory deficit. LABS, X-RAYS, AND EKG Diagnostic Tests: Diagnostic tests have been ordered, with results reviewed and considered in the medical decision making process. Laboratory Tests: CBC + DIFF Final VIN: 04/10/2024 17:39:00 EST MsgRcvd: 04/10/2024 17:54 EST Lab Test Result Reference Status Received Comments 04/10/2024 17:54 CBC-COMPLETE CBC + DIFF Final EST BLOOD COUNT 04/10/2024 17:54 WBC 8.4 x 10/UL 4.5 - 10.8 Final EST 5.88 x 10/UL 04/10/2024 17:54 RBC 4.10 - 5.30 Final Above high normal EST 16.5 g/dl 04/10/2024 17:54 HEMOGLOBIN 12.0 - 16.0 Final Above high normal EST 47.1 % 04/10/2024 17:54 HEMATOCRIT 34.0 - 46.0 Final Above high normal EST 04/10/2024 17:54 MCV 80 fl 80 - 99 Final EST 04/10/2024 17:54 MCH 28 pg 27 - 33 Final EST 3 of 22 Narrative 04/10/2024 17:54 MCHC 35 X10 3 32 - 36 Final EST 04/10/2024 17:54 RDW/CV 14.7 % 12.0 - 15.6 Final EST 04/10/2024 17:54 PLATELET 232 x10/UL 150 - 450 Final EST 04/10/2024 17:54 AUTOMATED MPV 9.5 fl 6.6 - 10.5 Final EST DIFFERENTIAL 04/10/2024 17:54 NEUT % 68.9 % 46.0 - 76.0 Final EST 04/10/2024 17:54 LYMPH % 23.2 % 20.0 - 45.0 Final EST 04/10/2024 17:54 MONOS % 6.5 % 0.0 - 10.0 Final EST 04/10/2024 17:54 EO % 1.3 % 0.0 - 7.0 Final EST 04/10/2024 17:54 BASO % 0.2 % 0.0 - 2.0 Final EST 04/10/2024 17:54 Lymph # 1.94 x10/UL 0.80 - 2.80 Final EST 04/10/2024 17:54 Neut # 5.78 x10/UL 1.50 - 7.10 Final EST 04/10/2024 17:54 [place]atham # 0.54 x10/UL 0.20 - 1.00 Final EST 04/10/2024 17:54 EO # 0.11 x10/UL 0.00 - 0.50 Final EST 04/10/2024 17:54 Baso # 0.02 x10/UL 0.00 - 0.10 Final EST 4 of 22 Narrative 04/10/2024 17:54 MANUAL DIFF N/A New Order EST 04/10/2024 17:54 MORPHOLOGY N/A New Order EST CMP with eGFR Final VIN: 04/10/2024 17:39:00 EST MsgRcvd: 04/10/2024 18:23 EST Lab Test Result Reference Status Received Comments COMPREHENSIVE 04/10/2024 CMP with eGFR Final METABOLIC 18:23 EST PANEL 04/10/2024 SODIUM 138 mmol/l 136 - 145 Final 18:23 EST 04/10/2024 POTASSIUM 3.5 mmol/L 3.5 - 5.1 Final 18:23 EST 04/10/2024 CHLORIDE 100 mmol/L 98 - 107 Final 18:23 EST 04/10/2024 CO2 27.8 mmol/L 21.0 - 32.0 Final 18:23 EST 233 mg/dl 04/10/2024 GLUCOSE Above high 74 - 106 Final 18:23 EST normal 04/10/2024 BUN 16 mg/dl 7 - 18 Final 18:23 EST 04/10/2024 CREATININE 0.87 mg/dl 0 (more content not included)... Normal [facility] ED SUPER BILLon 04-11-2024 ED SUPER BILL [facility] [address] 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 Sex: Female : 1985 Age: 38y Facility Professional Category Item Description Code Code Quantity Fee Total Drugs Normal Saline 775194 1 $0.00 $0.00 1000cc (807849) Nurse/E/M EMERGENCY 012459 1 $0.00 $0.00 DEPT VISIT HIGH SEVERITYFUNCJ (16874-98) Nurse/IV/IM/Infusions Hydration 849054 1 $0.00 $0.00 additional hour (03601) Nurse/IV/IM/Infusions IVP additional 808057 1 $0.00 $0.00 push (10436) Nurse/IV/IM/Infusions IVP initial (30680) 344879 1 $0.00 $0.00 Nurse/IV/IM/Infusions IVP same med 482327 2 $0.00 $0.00 (31 min apart) (39370) Grand $0.00 Total Providers 1 of 2 [facility] Jerri Berrios D.O. Brayden Hernandez D.O. Brayden Hernandez D.O. Chief Complaints CHEST PAIN. CHEST PAIN. Principal Diagnoses Chest pain characterized as discomfort. Chest pain. Type 1 diabetes. Hypertension. (Patient has a left adrenal adenoma). ICD-10 Codes R07.89: Other chest pain R07.9: Chest pain, unspecified I10: Essential (primary) hypertension 2 of 2 [facility] ED VISIT SUMMARYon ED VISIT SUMMARY Visit Overview Visit Overview [facility] [address] 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 fenofibrate 120 mg tablet: 120 mg once a day for hypercholesterolemia. HumaLOG U-100 Insulin 100 unit/mL subcutaneous cartridge: 1 sliding scale dose as needed, as needed for type 1 diabetes mellitus. (Insulin pump) levothyroxine 112 mcg tablet: 112 mcg once a day . lovastatin oral: 40 mg once a day . 1 of 4 Visit Overview metoprolol tartrate 50 mg tablet: 50 mg once a day for hypertension. warfarin 10 mg tablet: 15 mg once a day for deep vein thrombosis prevention. PAST MEDICAL HISTORY / PROBLEMS Diabetes Mellitus Type 1 Hyperlipidemia Hypertension Hyperthyroidism Tachycardia PAST SURGICAL HISTORY Amputation Below Knee Angioplasty of vein. for blood clot . x3 Tubal Ligation SOCIAL HISTORY Smoking status: No Alcohol use: Yes Drug use: Yes ED COURSE MEDICATIONS GIVEN IN EMERGENCY DEPARTMENT 17:53 04/10/24 Zofran IVP 4 mg 17:53 04/10/24 HYDROmorphone (Dilaudid) IVP 0.5 mg 18:47 04/10/24 NitroGLYCERIN SL 0.4 mg 19:07 04/10/24 NitroGLYCERIN SL 0.4 mg 19:16 04/10/24 NitroGLYCERIN SL 0.4 mg 19:50 04/10/24 IV NS 0.9 % 1000 mL 500 mL/hr 19:50 04/10/24 HYDROmorphone (Dilaudid) IVP 0.5 mg 19:51 04/10/24 Zofran IVP 4 mg IV SITE INFORMATION 17:39 04/10/24 Site #1 left forearm, 18g. Saline lock. INTAKE 2 of 4 Visit Overview OUTPUT REASSESMENT (most recent) 17:45 04/10/24. Ambulatory to room. (Pt c/o nausea/vomiting x 5 days and chest pain for a few hours.). GENERAL / NEURO / PSYCH: Alert. Oriented X 4. Appears in pain. ( Denies diaphoresis). RESPIRATORY: Respirations not labored. Breath sounds within normal limits. ( Denies SOB). CVS: Heart sounds within normal limits. ( Reports left sided chest pain extending to epigastric area and radiating to back). Capillary refill less than 2 seconds. GI / : The patient has had nausea. Emesis noted. Abdomen soft and nontender. No diarrhea. No pain with urination, frequency of urination or urgency of urination. EXTREMITIES: No lower extremity edema. SKIN: Skin is warm and dry. VITAL SIGNS First Vitals Last Vitals Temp 17:28 04/10/24 98.0 F Temp 20:59 04/10/24 BP 17:28 04/10/24 149/85 BP 20:59 04/10/24 HR 17:28 04/10/24 102 HR 20:59 04/10/24 RR 17:28 04/10/24 18 RR 20:59 04/10/24 16 O2 Sat 17:28 04/10/24 96% O2 Sat 20:59 04/10/24 99% RA Pain 17:28 04/10/24 8 Pain 20:59 04/10/24 4 ETCO2 17:28 04/10/24 ETCO2 20:59 04/10/24 GCS 17:28 04/10/24 GCS 20:59 04/10/24 RTS 17:28 04/10/24 RTS 20:59 04/10/24 PROCEDURES NURSING INTERVENTIONS LABS / STUDIES LABS / STUDIES ORDERED CBC w Diff Chest 1V CMP CT Chest PE Study PT with INR Troponin-I Troponin-I #2 3 of 4 Visit Overview CLINICAL IMPRESSION CHEST PAIN CHEST PAIN CHARACTERIZED DISCOMFORT HYPERTENSION TYPE 1 DIABETES 4 of 4 Normal [facility] ED VITALS FLOW SHEETon 04-11 ED VITALS FLOW SHEET Vitals Vital Sign Flow Sheet [address] 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 Sex: Female : 1985 Age: 38y Measurements Wt: 86.2 kg, Ht/Manny: 66.0 in, BMI: 30.67 Measured Time BP MAP HR RR O2Sat ETCO2 Temp Pain GCS RTS 20:59 04/10/2024 16 99% RA 4 20:57 04/10/2024 96 99% 20:56 04/10/2024 166/96 108 92 20:52 04/10/2024 72 98% 20:47 04/10/2024 73 99% 20:42 04/10/2024 79 97% 20:41 04/10/2024 151/78 118 77 20:37 04/10/2024 87 96% 20:32 04/10/2024 78 97% 20:27 04/10/2024 78 97% 20:26 04/10/2024 172/85 114 77 20:22 04/10/2024 78 97% 20:17 04/10/2024 76 96% 20:12 04/10/2024 78 97% 20:11 04/10/2024 155/85 105 77 1 of 2 Vitals Measured Time BP MAP HR RR O2Sat ETCO2 Temp Pain GCS RTS 20:07 04/10/2024 79 97% 19:55 04/10/2024 126/62 83 81 19:40 04/10/2024 133/74 86 86 19:26 04/10/2024 106/71 82 101 19:17 04/10/2024 90 95% 19:16 04/10/2024 113/58 72 89 19:12 04/10/2024 89 94% 19:11 04/10/2024 111/50 70 92 19:07 04/10/2024 83 97% 19:07 04/10/2024 120/59 86 86 18:42 04/10/2024 90 96% 18:41 04/10/2024 145/77 98 86 18:37 04/10/2024 86 96% 18:32 04/10/2024 86 95% 18:27 04/10/2024 87 95% 18:25 04/10/2024 139/79 99 87 18:22 04/10/2024 90 95% 18:20 04/10/2024 16 8 18:17 04/10/2024 85 95% 18:12 04/10/2024 83 94% 18:10 04/10/2024 131/71 87 83 18:07 04/10/2024 88 94% 17:57 04/10/2024 91 96% 17:28 04/10/2024 149/85 106 102 18 96% 98.0 F 8 2 of 2 Normal [facility] LIPID PROFILEon 04-11-2024 Cholesterol [Mass/Vol] 145 mg/dL Normal 0 - 240 [facility] Comment on above: Performed By: #### 2 08368 #### [facility],[address] [place] [address] 02352 Cholesterol in HDL [Mass/Vol] 31 mg/dL Low 40 - 60 [facility] Comment on above: Performed By: #### 2 39812 #### [facility],[address] [place] [address] 90342 Cholesterol in LDL [Mass/Vol] 86 mg/dL Normal 0 - 129 [facility] Comment on above: Performed By: #### 2 42450 #### [facility],[address] [place] [address] 41724 Cholesterol.total/Meghan sterol in HDL [Mass ratio] 4.7 {ratio} Normal 0.0 - 5.0 [facility] Comment on above: Performed By: #### 2 95191 #### [facility],[address] [place] [address] 98176 Lipid 1996 panel Normal [facility] Comment on above: Result Comment: LIPI D PROFILE Performed By: #### 2 66777 #### [facility],[address] [place] [address] 20907 Triglyceride [Mass/Vol] 141 mg/dL Normal 0 - 150 [facility] Comment on above: Performed By: #### 2 66984 #### [facility],[address] [place] [address] 05437 MAGNESIUM DAILYon 04-11-2024 Magnesium [Mass/Vol] 1.5 mg/dL Low 1.8 - 2.4 [facility] Comment on above: Performed By: #### 2 00131 #### [facility],[address] [place] [address] 65795 TROPONIN I, HIGH SENSITIVITY on 04-11-2024 HS TROPONIN 4.4 pg/mL Normal 0.0 - 51.4 [facility] Comment on above: Performed By: #### 2 63287 #### [facility],[address] [place] [address] CBC + DIFFon 04-10-2024 Baso # 0.02 x10EE3/UL Normal 0.00 - 0.10 [facility] Comment on above: Performed By: #### 2 24390 #### [facility],[address] [place] [address] 54324 Basophils/100 WBC (Bld) 0.2 % Normal 0.0 - 2.0 [facility] Comment on above: Performed By: #### 2 63108 #### [facility],[address] [place] [address] CBC + DIFF Normal [facility] Comment on above: Result Comment: CBC- COMPLETE BLOOD COUNT Performed By: #### 2 02067 #### [facility],[address] [place] [address] 35500 EO # 0.11 x10EE3/UL Normal 0.00 - 0.50 [facility] Comment on above: Performed By: #### 2 48558 #### [facility],[address] [place] [address] 68211 Eosinophils/100 WBC (Bld) 1.3 % Normal 0.0 - 7.0 [facility] Comment on above: Performed By: #### 2 94747 #### [facility],[address] [place] [address] 30142 Erythrocyte distribution width (RBC) [Ratio] 14.7 % Normal 12.0 - 15.6 [facility] Comment on above: Performed By: #### 2 02205 #### [facility],[address] [place] [address] 20908 Hematocrit (Bld) [Volume fraction] 47.1 % High 34.0 - 46.0 [facility] Comment on above: Performed By: #### 2 66389 #### [facility],[address] [place] [address] 02355 Hemoglobin (Bld) [Mass/Vol] 16.5 g/dL High 12.0 - 16.0 [facility] Comment on above: Performed By: #### 2 17675 #### [facility],[address] [place] [address] 24296 Lymph # 1.94 x10EE3/UL Normal 0.80 - 2.80 [facility] Comment on above: Performed By: #### 2 36052 #### [facility],[address] [place] [address] 41703 Lymphocytes/100 WBC (Bld) 23.2 % Normal 20.0 - 45.0 [facility] Comment on above: Performed By: #### 2 03677 #### [facility],[address] [place] [address] 42616 MANUAL DIFF N/A Normal [facility] Comment on above: Performed By: #### 2 40765 #### [facility],[address] [place] [address] 84301 MCH (RBC) [Entitic mass] 28 pg Normal 27 - 33 [facility] Comment on above: Performed By: #### 2 44192 #### [facility],[address] [place] [address] 99384 MCHC 35 X10 3 Normal 32 - 36 [facility] Comment on above: Performed By: #### 2 88475 #### [facility],[address] [place] [address] 30428 MCV (RBC) [Entitic vol] 80 fL Normal 80 - 99 [facility] Comment on above: Performed By: #### 2 48458 #### [facility],[address] [place] [address] 00435 [place]atham # 0.54 x10EE3/UL Normal 0.20 - 1.00 [facility] Comment on above: Performed By: #### 2 82371 #### [facility],[address] [place] [address] 32098 MONOS % 6.5 % Normal 0.0 - 10.0 [facility] Comment on above: Performed By: #### 2 54785 #### [facility],[address] [place] [address] 19312 Morphology Abdelrahman (Bld) [Interp] N/A Normal [facility] Comment on above: Performed By: #### 2 57647 #### [facility],[address] [place] [address] 07529 Neut # 5.78 x10EE3/UL Normal 1.50 - 7.10 [facility] Comment on above: Performed By: #### 2 93051 #### [facility],[address] [place] [address] 97285 Neutrophils/100 WBC (Bld) 68.9 % Normal 46.0 - 76.0 [facility] Comment on above: Performed By: #### 2 95686 #### [facility],[address] [place] [address] 98483 PLATELET 232 x10EE3/UL Normal 150 - 450 [facility] Comment on above: Performed By: #### 2 86129 #### [facility],[address] [place] [address] 16181 Platelet mean volume (Bld) [Entitic vol] 9.5 fL Normal 6.6 - 10.5 [facility] Comment on above: Result Comment: AUTO MATED DIFFERENTIAL Performed By: #### 2 22624 #### [facility],[address] [place] [address] 80818 RBC 5.88 x 10EE6/UL High 4.10 - 5.30 [facility] Comment on above: Performed By: #### 2 66460 #### [facility],[address] [place] [address] 31259 WBC 8.4 x 10EE3/UL Normal 4.5 - 10.8 [facility] Comment on above: Performed By: #### 2 52581 #### [facility],[address] [place] [address] 79328 CHEST 1 VIEWon 04-10-2024 CHEST 1 VIEW [place] [address] Patient: VENANCIO FOREMAN Phone#: : 1985 Age: 38 Gender: F Pt. Type: ER Account: [id number] Location: [facility] Ordering: JERRI BERRIOS Exam Date: 04/10/2024/17:39 Family Phys: Charge Code: [id number] Physician: [place] Order #: [id number] Dose#: PROCEDURE: X-RAY CHEST 1 VIEW COMPARISON: None. INDICATIONS: Chest pain. FINDINGS: LUNGS: Normal. No significant pulmonary parenchymal abnormalities. VASCULATURE: Normal. Unremarkable pulmonary vasculature. CARDIAC: Normal. No cardiac silhouette abnormality or cardiomegaly. MEDIASTINUM: Normal. No visible mass or adenopathy. PLEURA: Normal. No effusion or pleural thickening. BONES: Normal. No fracture or visible bony lesion. OTHER: Negative. CONCLUSION: No acute disease. Dictated by: Brissa Montes De Oca MD on 04/10/2024 at 18:18 Approved by: Brissa Montes De Oca MD on 04/10/2024 at 18:18 Normal [facility] CMP with eGFRon 04-10-2024 AGE 38 years Normal [facility] Comment on above: Performed By: #### 2 40018 ####[facility],[address] [place] [address] 63081 Albumin [Mass/Vol] 3.7 g/dL Normal 3.4 - 5.0 [facility] Comment on above: Performed By: #### 2 52479 ####[facility],[address] [place] [address] 40663 Albumin/Globulin [Mass ratio] 0.9 {ratio} Normal 0.9 - 1.6 [facility] Comment on above: Performed By: #### 2 74106 ####[facility],[address] [place] [address] 69800 ALK PHOS 60 U/L Normal 46 - 116 [facility] Comment on above: Performed By: #### 2 07406 ####[facility],[address] [place] [address] 14253 ALT [Catalytic activity/Vol] 19 U/L Normal 16 - 63 [facility] Comment on above: Performed By: #### 2 75199 ####[facility],[address] [place] [address] 46061 Anion gap [Moles/Vol] 14 mmol/L Normal 10 - 20 [facility] Comment on above: Performed By: #### 2 81879 ####[facility],[address] [place] [address] 17004 AST [Catalytic activity/Vol] 12 U/L Low 13 - 39 [facility] Comment on above: Performed By: #### 2 80729 ####[facility],[address] [place] [address] 69314 B/C RATIO 18 ratio Normal 0 - 30 [facility] Comment on above: Performed By: #### 2 77108 ####[facility],[address] [place] [address] 15594 Bilirubin [Mass/Vol] 0.5 mg/dL Normal 0.2 - 1.0 [facility] Comment on above: Performed By: #### 2 31095 ####[facility],[address] [place] [address] 74335 Calcium [Mass/Vol] 9.2 mg/dL Normal 8.5 - 10.1 [facility] Comment on above: Performed By: #### 2 43458 ####[facility],[address] [place] [address] 93009 Chloride [Moles/Vol] 100 mmol/L Normal 98 - 107 [facility] Comment on above: Performed By: #### 2 33240 ####[facility],[address] [place] [address] 18311 CMP with eGFR Normal [facility] Comment on above: Result Comment: COMP REHENSIVE METABOLIC PANEL Performed By: #### 2 11129 ####[facility],[address] [place] [address] CO2 [Moles/Vol] 27.8 mmol/L Normal 21.0 - 32.0 [facility] Comment on above: Performed By: #### 2 82511 ####[facility],[address] [place] [address] Creatinine [Mass/Vol] 0.87 mg/dL Normal 0.55 - 1.02 [facility] Comment on above: Performed By: #### 2 45203 ####[facility],[address] [place], [place] [address] GFR/1.73 sq M.predicted among non-blacks MDRD (S/P/Bld) [Vol rate/Area] mL/min/{1.73_m2} Normal 60 - 999 [facility] Comment on above: Performed By: #### 2 20721 ####[facility],[address] [place] [address] Result Comment: ACCO RDING TO THE NATIONAL KIDNEY DISEASE EDUCATION PROGRAM(NKDE), A NORMAL eGFR IS A VALUE GREATER THAN OR EQUAL TO 60 ML/MIN/1.73 SQ METERS. CHRONIC KIDNEY DISEASE: <60mL/MIN/1.73 SQ METERS KIDNEY FAILURE: <15mL/MIN/1.73 SQ METERS THIS TEST SHOULD ONLY BE USED FOR PATIENTS 18 YEARS OF AGE AND OLDER. Globulin (S) [Mass/Vol] 3.9 g/dL High 1.5 - 3.8 [facility] Comment on above: Performed By: #### 2 74986 ####[facility],[address] [place] [address] 57437 Glucose [Mass/Vol] 233 mg/dL High 74 - 106 [facility] Comment on above: Performed By: #### 2 79111 ####[facility],[address] [place] [address] 94153 Potassium [Moles/Vol] 3.5 mmol/L Normal 3.5 - 5.1 [facility] Comment on above: Performed By: #### 2 40436 ####[address] [address] Protein [Mass/Vol] 7.6 g/dL Normal 6.4 - 8.2 [facility] Comment on above: Performed By: #### 2 52586 ####[facility],[address] [place] [address] 92124 Sodium [Moles/Vol] 138 mmol/L Normal 136 - 145 [facility] Comment on above: Performed By: #### 2 23612 ####[facility],[address] [place] [address] 99080 Urea nitrogen [Mass/Vol] 16 mg/dL Normal 7 - 18 [facility] Comment on above: Performed By: #### 2 09768 ####[facility],[address] [place] [address] CHEST (PE PROTOCOL)on CT CHEST (PE PROTOCOL) [place] [address] Patient: VENANCIO FOREMAN Phone#: : 1985 Age: 38 Gender: F Pt. Type: ER Account: [id number] [facility] Ordering: JERRI BERRIOS Exam Date: 04/10/2024/18:48 Family Phys: Charge Code: [id number] Physician: [place] Order #: [id number] Dose#: [id number] PROCEDURE: CT CHEST WITH CONTRAST FOR PE COMPARISON: [facility], CT, LUMBAR SPINE W/O CON, 02/12/2023, 10:24. [facility], CT, CHEST/ABDOMEN/PELVIS W CON, 01/15/2024, 15:34. INDICATIONS: Chest pain. TECHNIQUE: After obtaining the patient's consent, CT images were obtained with non-ionic intravenous contrast material. Multi-planar images were created to optimize visualization of vascular anatomy with MPR/MIPS and 3D imaging. All CT scans at this facility use dose modulation, iterative reconstruction, and/or weight based dosing when appropriate to reduce radiation dose to as low as reasonably achievable. IV CONTRAST: Omnipaque 350,80ml TOTAL DOSE: 9.00 CTDIvol(mGy) FINDINGS: VASCULATURE: Suboptimal contrast opacification of the pulmonary arteries. No pulmonary embolism in the main or proximal pulmonary arteries. AORTA: No aortic aneurysm LUNGS: Normal. No visible pulmonary disease. ALHAJI: Normal. No mass or adenopathy. MEDIASTINUM: Normal. No mass or adenopathy. CARDIAC: Normal. No enlargement, pericardial thickening, or significant calcification. PLEURA: Normal. No mass or effusion. CHEST WALL: Normal. No mass or axillary adenopathy. LIMITED ABDOMEN: Enlarging indeterminate left adrenal nodule measuring 3.0 x 2.8 cm, in February 2023 the nodule measured 2.5 x 2.5 cm. The size may be underestimated given partial imaging. BONES: Normal. No bony lesion or fracture. OTHER: Negative. CONCLUSION: 1. No pulmonary embolism in the main or proximal pulmonary arteries. Continued Report - Page 2 of 2 Patient: VENANCIO FOREMAN Phone#: : 1985 Age: 38 Gender: F Pt. Type: ER Account: [id number] Location: 010 Ordering: JERRI BERRIOS Exam Date: 04/10/2024/18:48 Family Phys: Charge Code: [id number] Physician: [place] Order #: [id number] Dose#: [id number] 2. Enlarging left adrenal nodule. Recommend dedicated MRI abdomen without and with contrast for further characterization. Dictated by: Nirali Lim MD on 04/11/2024 at 8:05 Approved by: Nirali Lim MD on 04/11/2024 at 8:17 Normal [facility] PROTHROMBIN TIME AND INRon 0 04-10-2024 INR Coag (PPP) [Relative time] 1.0 {INR} Normal 0.8 - 1.2 [facility] Comment on above: Result Comment: T HE HEMOSIL THROMBOPLASTIN REAGENT USED IN THE PROTHROMBIN TIME TEST INTERACTS WITH THE DRUG CUBICIN (DAPTOMYCIN) AND WILL RESULT IN FALSELY ELEVATED PT / INR RESULTS INR INTERPRETATION INR INDICATION PREVENTION AND TREATMENT OF THROMBOEMBOLISM ASSOCIATED WITH: 2.0 - 3.0 ATRIAL FIBRILLATION, BIOPROSTHETIC HEART VALVES, PULMONARY EMBOLISM, VENOUS THROMBOSIS, SYSTEMIC EMBOLISM POST MYOCARDIAL INFARCTION 2.5 - 3.5 MECHANICAL HEART VALVES Performed By: #### 2 33397 ####[facility],[address] [place] [address] PROTHROMBIN TIME AND INR Normal [facility] Comment on above: Result Comment: PROT HROMBIN TIME AND INR Performed By: #### 2 11230 ####[facility],[address] [place], [place] [id number] PT-COUMADIN 11.9 sec Normal 9.3 - 14.1 [facility] Comment on above: Performed By: #### 2 46359 ####[facility],[address] [place] [address] 22086 TROPONINon 04-10-2024 HS TROPONIN <4.0 Normal 0.0 - 51.4 [facility] Comment on above: Performed By: #### 2 93951 #### [facility],[address] [place] [address] 90602 HS TROPONIN <4.0 Normal 0.0 - 51.4 [facility] Comment on above: Performed By: #### [id number] #### [facility],[address] [place] [id number] Endocrinology Visit Reporton 03-07-2024 Endocrinology Visit Report [facility] [address] [place] [address]. [address] [place] [address] OFFICE VISIT Date of Service: 03/07/24 MR#: [id number] Acct: [id number] Name: VENANCIO FOREMAN Rep #: [id number] : 1985 Provider: SANDI owens Age/Sex: 38/F Location: [facility] Status: Signed Intake Vital Signs 12/06/23 14:41 02/28/24 12:45 03/07/24 14:07 Height 5 ft 6 in 5 ft 6 in 5 ft 6 in Weight: 187 lb 4 oz BMI 30.2 BP 133/81 H Blood Pressure Location Lt brachial Position Sitting Pulse 74 Pulse Source Monitor Pulse Oximetry (%) 100 Oxygen Delivery Method room air Intake Visit Reasons: 3 M FU Chief Complaint: f/u diabetes Is patient in pain?: No Allergies morphine Allergy (Intermediate, Verified 02/28/24 12:47) Rash orange Allergy (Verified 02/28/24 12:47) Rash Medications ???Medication ???Instructions ???Recorded ???Confirmed ???Type aspirin 81 mg tablet,delayed 81 mg PO DAILY 30 days #30 tabs 03/14/23 03/07/24 Rx release (Adult Low Dose Aspirin) insulin syr/ndl U100 half jesús 0.3 #100 ea 03/14/23 01/11/24 Rx mL 30 gauge x 1/2 metoprolol succinate 100 mg 100 mg PO DAILY 30 days #30 tabs 07/13/23 03/07/24 Rx tablet,extended release 24 hr (Toprol XL) pen needle, diabetic 32 gauge x #1,200 ea 07/13/23 01/11/24 Rx 5/32 (BD Ultra-Fine Elyssa Pen Needle) blood sugar diagnostic (OneTouch #100 ea 07/17/23 01/11/24 Rx Verio test strips) blood-glucose meter (OneTouch #1 ea 07/17/23 01/11/24 Rx Verio Flex Meter) lancets 30 gauge (Onetouch Delica #200 ea 07/17/23 01/11/24 Rx Safety Lancet) amitriptyline 25 mg tablet 25 mg PO QHS 09/06/23 03/07/24 History desvenlafaxine succinate 25 mg 25 mg PO DAILY #30 tabs 09/06/23 03/07/24 Rx tablet,extended release 24 hr (Pristiq) Guardian 4 Glucose Sensor #10 ea 11/02/23 01/11/24 Rx (blood-glucose sensor) insulin lispro 200 unit/mL (3 mL) 350 unit (1.75 mL) subcut 11/02/23 03/07/24 Rx subcutaneous pen (Humalog KwikPen .continuous #52.3 mL U-200 Insulin) cilostazol 100 mg tablet 100 mg PO BID #60 tabs 11/09/23 03/07/24 Rx blood-glucose transmitter #1 ea 11/15/23 01/11/24 Rx (Guardian 4 Transmitter device) cariprazine 1.5 mg capsule 1.5 mg PO QDAY 12/06/23 03/07/24 History (Vraylar) eszopiclone 2 mg tablet 2 mg PO QHS 12/06/23 03/07/24 History atorvastatin 40 mg tablet 40 mg PO DAILY 30 days #30 tabs 01/11/24 03/07/24 Rx fenofibrate nanocrystallized 145 145 mg PO DAILY #30 tabs 01/11/24 03/07/24 Rx mg tablet levothyroxine 112 mcg capsule 112 mcg PO DAILY #30 caps 01/11/24 03/07/24 Rx losartan 50 mg tablet 50 mg PO DAILY #90 tabs 01/11/24 03/07/24 Rx pantoprazole 40 mg tablet,delayed 40 mg PO BID #60 tabs 01/11/24 03/07/24 Rx release (Protonix) pregabalin 300 mg capsule 300 mg PO BID 01/11/24 03/07/24 History warfarin 10 mg tablet 15 mg (1.5 x 10 mg) PO DAILY #45 01/11/24 03/07/24 Rx tabs PFSH Medical History Xanthelasmatosis Abdominal pain Nausea, vomiting, and diarrhea DKA (diabetic ketoacidosis) Anemia Bipolar disorder Anxiety Depression GERD (gastroesophageal reflux disease) Former smoker Migraines Headache DVT (deep venous thrombosis) Chronic anticoagulation Type 1 diabetes mellitus Abnormal angiogram HTN (hypertension) Hyperlipidemia Surgical History H/O section History of revascularization procedure of lower extremity Hx of cholecystectomy History of intravascular stent placement Tubal ligation status History of below-knee amputation of left lower extremity S/P BKA (below knee amputation) unilateral Family History Father Hypertension Cancer lung Diabetes Mother Diabetes Hypertension Cancer bladder Dementia Social History household members: spouse and children housing: house current occupational status: disabled 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 A1C today is 7.2%, improved from 12/06/23 at 8.1%. She has lost 10 lbs. She is pleased with her progress. Review of pump download- TIR 94%, she is not entering any carbs, denies any significant episode of hy (more content not included)... [facility] Brain/Head without Contrasto n 02-28-2024 Brain/Head without Contrast [facility] Imaging Services [address] [place] [address] [id number] Brain/Head without Contrast MR#: [id number] Acct: [id number] Name: VENANCIO FOREMAN Rep #: [id number] : 1985 F 38 From: Hardik Tucker MD PCP: Dr. Autumn Whitt MD Status: REG ER Study: Brain/Head without Contrast Date of Exam: 02/02 10/24 Exam# [id number] Ordering Dr: Sergio Vogel DO [id number] EXAM: CT HEAD WITHOUT INTRAVENOUS CONTRAST CLINICAL INDICATION: Fall from ladder injury yesterday. Pain. TECHNIQUE: Multiple axial images were obtained of the head without intravenous contrast. This CT exam was performed using one or more of the following dose reduction techniques: automated exposure control, adjustment of the mA and/or kV according to patient size, and/or use of iterative reconstruction technique. RADIATION DOSE: CTDIvol = 47.06 mGy, DLP = 819.74 mGy-cm COMPARISON: CT head without contrast 06/04/2023. FINDINGS: BRAIN AND EXTRA-AXIAL SPACES: Unremarkable. No intra- or extra-axial hemorrhage. No evidence of acute infarct. No intracranial mass or mass effect. There is preservation of the kaye/white matter interface. Posterior fossa structures are unremarkable. Ventricles are appropriate for age. No hydrocephalus. Basal cisterns are patent. BONES/JOINTS: Unremarkable. No discrete lytic or blastic abnormalities. SINUSES: Unremarkable as visualized. Clear. MASTOID AIR CELLS: Unremarkable. Clear. ORBITS: Visualized globes, extraocular muscles, optic nerves and retrobulbar fat appear unremarkable. CT/Brain/Head without Contrast IMPRESSION: Negative head/brain CT without intravenous contrast and unchanged. Electronically Signed: Hardik Tucker MD at 14:38 EST Reading Location ID and State: [address] [place] [address] , Service support , CC: Dr. Autumn Whitt MD; Dr. Sergio Vogel DO Polisher Brass: Signed Normal [facility] Elbow min 3 Viewson 02-28-20 Elbow min 3 Views [facility] Imaging Services [address] [place], [place] [id number] Elbow min 3 Views MR#: [id number] Acct: [id number] Name: VENANCIO FOREMAN Rep #: [id number] : 1985 F 38 From: Norris Self MD PCP: Dr. Autumn Whitt MD Status: REG ER Study: Elbow min 3 Views Date of Exam: 02/28/24 Exam# [id number] Ordering Dr: Sergio Vogel DO [id number] STUDY: X-RAY - LEFT ELBOW REASON FOR EXAM: Female, 38 years old. Injury/Pain. TECHNIQUE: 3 views of the left elbow. COMPARISON: None. FINDINGS: Normal visualized humerus, radius and ulna. Normal radiocapitellar and ulnotrochlear articulations. The soft tissue structures are unremarkable. There is no demonstrated fracture. RAD/Elbow min 3 Views IMPRESSION: Normal x-ray examination of the left elbow. Electronically Signed: Norris Self MD at 14:16 EST , CC: Dr. Autumn Whitt MD; Dr. Sergio Vogel DO Polisher Brass: Signed [facility] Emergency Department Summary on 02-28-2024 Emergency Department Summary [facility] Medical Records Department [address] [place] [address] Emergency Department Summary 02/28/24 MR#: [id number] Acct: [id number] Name: VENANCIO FOREMAN Rep #: [id number] : 1985 38 From: Sergio Vogel DO PCP: Dr. Autumn Whitt MD Status:REG ER Location: ED HPI HPI - Fall History of Present Illness Chief Complaint: Fall Informant: patient Occured/Mechanism Occurred: Yesterday Fall from Height (ft): 2 feet Pain/Injury Pain Location: back and upper extremity (Left) Quality of Pain: Sharp and Dull Worsened by: Movement Relieved by: Nothing Associated Symptoms Associated Symptoms: Positive for Parasthesias; Negative for Weakness, Loss of function, Inability to ambulate, Loss of consciousness or Amnesia Narrative Narrative: Patient presents after a fall that occurred yesterday. Patient states she was in a ladder and fell approximately 2 feet. Patient states she has pain in her low back and left upper extremity. Patient states she did not hit her head or lose consciousness. Patient does admit to some tingling in the tips of her fingers of her left hand. Patient describes her pain as sharp and dull. Patient states it is worse with any movement. Patient denies any other injuries. Patient does states she is taking Coumadin. [facility] Medical History Xanthelasmatosis Abdominal pain Nausea, vomiting, and diarrhea DKA (diabetic ketoacidosis) Anemia Bipolar disorder Anxiety Depression GERD (gastroesophageal reflux disease) Former smoker Migraines Headache DVT (deep venous thrombosis) Chronic anticoagulation Type 1 diabetes mellitus Abnormal angiogram HTN (hypertension) Hyperlipidemia Home Medications ???Medication ???Instructions ???Recorded ???Last Taken ???Type aspirin 81 mg tablet,delayed 81 mg PO DAILY 30 days #30 tabs 03/14/23 Unknown Rx release (Adult Low Dose Aspirin) insulin syr/ndl U100 half jesús 0.3 #100 ea 03/14/23 Unknown Rx mL 30 gauge x 1/2 metoprolol succinate 100 mg 100 mg PO DAILY 30 days #30 tabs 07/13/23 Unknown Rx tablet,extended release 24 hr (Toprol XL) pen needle, diabetic 32 gauge x #1,200 ea 07/13/23 Unknown Rx 5/32 (BD Ultra-Fine Elyssa Pen Needle) blood sugar diagnostic (OneTouch #100 ea 07/17/23 Unknown Rx Verio test strips) blood-glucose meter (OneTouch #1 ea 07/17/23 Unknown Rx Verio Flex Meter) lancets 30 gauge (Onetouch Delica #200 ea 07/17/23 Unknown Rx Safety Lancet) amitriptyline 25 mg tablet 25 mg PO QHS 09/06/23 Unknown History desvenlafaxine succinate 25 mg 25 mg PO DAILY #30 tabs 09/06/23 Unknown Rx tablet,extended release 24 hr (Pristiq) insulin lispro 100 unit/mL 250 unit (2.5 mL) continuous 09/27/23 Unknown Rx subcutaneous solution (Humalog subcutaneous infusion .continuous U-100 Insulin) #75 mL Guardian 4 Glucose Sensor #10 ea 11/02/23 Unknown Rx (blood-glucose sensor) insulin lispro 200 unit/mL (3 mL) 350 unit (1.75 mL) subcut 11/02/23 Unknown Rx subcutaneous pen (Humalog KwikPen .continuous #52.3 mL U-200 Insulin) cilostazol 100 mg tablet 100 mg PO BID #60 tabs 11/09/23 Unknown Rx blood-glucose transmitter #1 ea 11/15/23 Unknown Rx (Guardian 4 Transmitter device) cariprazine 1.5 mg capsule 1.5 mg PO QDAY 12/06/23 Unknown History (Vraylar) eszopiclone 2 mg tablet 2 mg PO QHS 12/06/23 Unknown History atorvastatin 40 mg tablet 40 mg PO DAILY 30 days #30 tabs 01/11/24 Unknown Rx fenofibrate nanocrystallized 145 145 mg PO DAILY #30 tabs 01/11/24 Unknown Rx mg tablet levothyroxine 112 mcg capsule 112 mcg PO DAILY #30 caps 01/11/24 Unknown Rx losartan 50 mg tablet 50 mg PO DAILY #90 tabs 01/11/24 Unknown Rx pantoprazole 40 mg tablet,delayed 40 mg PO BID #60 tabs 01/11/24 Unknown Rx release (Protonix) pregabalin 300 mg capsule 300 mg PO BID 01/11/24 Unknown History warfarin 10 mg tablet 15 mg (1.5 x 10 mg) PO DAILY #45 01/11/24 Unknown Rx tabs hydrocodone-acetaminop hen 5-325mg 1 tab PO Q6H PRN PRN Pain 3 days 02/28/24 Unknown Rx 5mg-325mg #10 TABLETS Allergy/AdvReac Type Severity Reaction Status Date / Time morphine Allergy Intermediate Rash Verified 02/28/24 12:47 orange Allergy Rash Verified 02/28/24 12:47 Family History Father Hypertension Cancer lung Diabetes Mother Diabetes Hypertension Cancer bladder Dementia Surgical History H/O section History of revascularization procedure of lower extremity Hx of cholecystectomy History of intravascular stent placement Tubal ligation status History of below-knee amputation of left lower extremity S/P BKA (below knee amputation) un (more content not included)... Normal [facility] Lumbar Spine 2 or 3 Viewson 02-28-2024 Lumbar Spine 2 or 3 Views [facility] Imaging Services [address] [place], [place] [id number] Lumbar Spine 2 or 3 Views MR#: [id number] Acct: [id number] Name: VENANCIO FOREMAN Rep #: [id number] : 1985 F 38 From: Hardik Tucker MD PCP: Dr. Autumn Whitt MD Status: REG ER Study: Lumbar Spine 2 or 3 Views Date of Exam: Exam# [id number] Ordering Dr: Sergio Vogel DO [id number] EXAM: XR LUMBOSACRAL SPINE, 2 OR 3 VIEWS CLINICAL INDICATION: Fell off ladder injury yesterday. Low back pain. TECHNIQUE: Frontal and lateral views of the lumbar spine and sacrum. COMPARISON: No relevant prior studies available. FINDINGS: VERTEBRAE: Slight anterior wedging of the L1 superior endplate may be developmental. No acute fractures of the vertebral bodies and posterior osseous elements. No traumatic subluxation. No lytic or blastic lesions. No spondylolisthesis. Preservation of the normal lumbar lordosis. No significant facet arthropathy. DISC SPACES: No acute findings. Normal lumbar disc space heights. GASTROINTESTINAL TRACT: Unremarkable as visualized. Included bowel gas pattern is non-obstructive. RAD/Lumbar Spine 2 or 3 Views IMPRESSION: 1. No suspicious acute fractures or malalignment of the lumbar spine. 2. Slight anterior wedging of the L1 superior endplate may be developmental or from remote injury. Electronically Signed: Hardik Tucker MD at 15:00 EST Reading Location ID and State: [address] [place] [address] , Service support , CC: Dr. Autumn Whitt MD; Dr. Sergio Vogel DO Polisher Brass: Signed Normal [facility] Spine Cervical without Contr ason 02-28-2024 Spine Cervical without Contras [facility] Imaging Services [address] [place] [address] Spine Cervical without Contras MR#: [id number] Acct: [id number] Name: VENANCIO FOREMAN Rep #: [id number] : 1985 F 38 From: Hardik Tucker MD PCP: Dr. Autumn Whitt MD Status: REG ER Study: Spine Cervical without Contras Date of Exam: 04/29/23 Exam# [id number] Ordering Dr: Sergio Vogel DO [id number] EXAM: CT CERVICAL SPINE WITHOUT INTRAVENOUS CONTRAST CLINICAL INDICATION: Fall injury from ladder yesterday. Pain. TECHNIQUE: Helically acquired images were obtained of the cervical spine without intravenous contrast. 2D reformatted images were reviewed. This CT exam was performed using one or more of the following dose reduction techniques: automated exposure control, adjustment of the mA and/or kV according to patient size, and/or use of iterative reconstruction technique. RADIATION DOSE: CTDIvol = 21.26 mGy, DLP = 454.71 mGy-cm COMPARISON: No relevant prior studies available. FINDINGS: VERTEBRAE: Straightening of the C-spine curvature. No recent or remote fractures of the vertebral bodies and posterior osseous elements of the cervical spine. No traumatic malalignment or subluxation of the cervical spine, craniocervical junction and cervicothoracic junction. Normal vertebral body heights. Normal facet joints. No discrete lytic or blastic abnormality. DISCS/SPINAL CANAL/NEURAL FORAMINA: Unremarkable. No critical stenosis. Normal cervical disc space heights. Normal central canal and bilateral intervertebral neuroforamina. SOFT TISSUES: Unremarkable. No prevertebral soft tissue swelling. LYMPH NODES: Unremarkable. No cervical adenopathy. LUNG APICES: Unremarkable as visualized. Clear. CT/Spine Cervical without Contras IMPRESSION: 1. No CT evidence of acute fracture or traumatic subluxation of the cervical spine, craniocervical junction and cervicothoracic junction. 2. No CT evidence of suspicious cervical extruded disc fragment although limited by the absence of intrathecal contrast. 3. No CT evidence of cervical spinal stenosis. Electronically Signed: Hardik Tucker MD at 14:51 EST Reading Location ID and State: [address] [facility] , Service support , CC: Dr. Autumn Whitt MD; Dr. Sergio Vogle DO Polisher Brass: Signed Normal [facility] Wrist min 3 Viewson 02-28-20 Wrist min 3 Views [facility] Imaging Services [address] [place] [address] Wrist min 3 Views MR#: [id number] Acct: [id number] Name: VENANCIO FOREMAN Rep #: [id number] : 1985 F 38 From: Norris Self MD PCP: Dr. Autumn Whitt MD Status: REG ER Study: Wrist min 3 Views Date of Exam: 02/28/24 Exam# [id number] Ordering Dr: Sergio Vogel DO [id number] STUDY: X-RAY - LEFT WRIST REASON FOR EXAM: Female, 38 years old. Injury/Pain TECHNIQUE: 3 views of the left wrist were obtained. COMPARISON: None. FINDINGS: Normal visualized distal radius and ulna. Normal radiocarpal articulation. Normal distal radioulnar articulation. Normal carpal bones. Normal carpal articulations. Normal carpometacarpal articulation of the thumb. Normal second through fifth carpometacarpal articulations. Normal visualized metacarpal bones. The soft tissue structures are unremarkable. There is no demonstrated acute fracture. RAD/Wrist min 3 Views IMPRESSION: No demonstrated acute fracture. Electronically Signed: Norris Self MD at 14:17 EST Reading Location ID and State: [address] [place] [address] , Service support , CC: Dr. Autumn Whitt MD; Dr. Sergio Vogel DO Polisher Brass: Signed [facility] FACILITY CODING SUMMARYon FACILITY CODING SUMMARY Facility Coding Facility Coding Summary [address] [address] [id number] 01/15/2024 Patient: VENANCIO FOREMAN Sex: Female : 1985 Age: 38y Providers: Pavel Qureshi D.O. DIAGNOSTIC WORKUP Chief Complaint FALL. -- Pavel Qureshi D.O. Principal Diagnosis Contusion to the right hip. -- Pavel Qureshi D.O. ICD-10 Codes S70.01xA: Contusion of right hip, initial encounter PROCEDURES Procedures from Providers: Procedures from Nurses/Facility: Blood Draw (CPT: 37029) IV Push Fentanyl IVP (CPT: 19050) IV Push Fentanyl IVP (CPT: 51075) IV Push Zofran IVP (CPT: 74557) SUPPLIES 1 of 2 Facility Coding [facility] [address]-92 This is a partial abstract of information documented in the full record. Shipyard Painter Helper must use independent judgment in selecting codes. CPT copyright 2022 [employer]. All Rights Reserved. 2 of 2 [facility] MED ADMINISTRATION DETAILon 01-16-2024 MED ADMINISTRATION DETAIL Table 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 Medication Administration Record [address] [address] [id number] 01/15/2024 Patient: VENANCIO FOREMAN Sex: Female : 1985 Age: 38y MEASUREMENTS: Wt: 89.4 kg, Ht/Manny: 66.0 in, BMI: 31.80 ALLERGIES: morphine, orange Medication Ordered Medication Administration Date/Time Fentanyl IVP 50 14:20 01/14 Fentanyl IVP 50 mcg given via Site# 1. Medication Given mcg (NOW x1) Wastage: 50 mcg wasted. - 14:20 Emir Rodriguez R.N. 14:20 01/15/2024 Emir Rodriguez R.N. Scanned Zofran IVP 4 mg 14:17 10 Zofran IVP 4 mg given via Site# 1. - 14:18 Emir Given (NOW x1) Roxy Rodriguez 14:17 01/15/2024 Emir Rodriguez R.N. Scanned Fentanyl IVP 50 15:27 01/14 Fentanyl IVP 50 mcg given via Site# 1. Medication Given mcg (NOW x1) Wastage: 50 mcg wasted. - 15:27 Emir Rodriguez R.N. 15:27 01/15/2024 Emir Rodriguez R.N. Scanned 1 of 1 [facility] NURSES CLINICAL REPORT (NOTE S)on 01-16-2024 NURSES CLINICAL REPORT (NOTES) Nurse Narrative Nurse Clinical Narrative [address] [place] [address] [id number] 01/15/2024 Patient: VENANCIO FOREMAN Sex: Female : 1985 Age: 38y Disposition: Discharge to Home Disposition Decision Time: 16:13 01/15/2024 Departure Time: 16:20 01/15/2024 TRIAGE Arrived by private vehicle. Historian: patient. Triage time: 13:48 01/15/2024. Acuity: LEVEL 3. Chief Complaint: LEFT UPPER EXTREMITY PAIN. Injury occurred. Location of injuries: left shoulder. Occurred (ladder). This started yesterday. ( pt fell off ladder landing on left side, denies any LOC or head injury). -- 13:58 01/15/24 RENATE Driscoll R.N. 13:48 01/15/24. SEPSIS SCREEN: NEGATIVE. SIRS criteria negative. No possible sources of infection. (13:48 01/15/2024). -- 13:59 01/15/24 RENATE Driscoll R.N. 13:57 01/15/24. BP: 146/80 MAP: 102. HR: 95. RR: 18. O2 saturation: 100% Temperature: 98.1 F. Pain level now 7/10. Describes the pain as aching and sharp. Constant. -- 13:57 01/15/24 RENATE Driscoll R.N. Measurements: 13:57 01/15/24 Wt: 89.4 kg, Ht/Manny: 66.0 in, BMI: 31.80 -- 13:57 01/15/24 RENATE Driscoll R.N. Medications: metoprolol tartrate 50 mg tablet: 50 mg once a day . -- 13:53 01/15/24 RENATE Driscoll R.N. warfarin 10 mg tablet: 15 mg once a day . -- 13:54 01/15/24 RENATE Driscoll R.N. 1 of 4 Nurse Narrative HumaLOG U-100 Insulin 100 unit/mL subcutaneous cartridge: 1 sliding scale dose as needed for type 1 diabetes mellitus. -- 13:54 01/15/24 RENATE Driscoll R.N. fenofibrate 120 mg tablet: 120 mg once a day . -- 13:55 01/15/24 RENATE Driscoll R.N. lovastatin oral -- 13:55 01/15/24 RENATE Driscoll R.N. levothyroxine 112 mcg tablet: 112 mcg once a day . -- 13:56 01/15/24 RENATE Driscoll R.N. Allergies: morphine: Side Effect; rash -- 13:50 01/15/24 RENATE Driscoll R.N. orange -- 13:50 01/15/24 RENATE Driscoll R.N. Problems: Hypertension -- 13:51 01/15/24 RENATE Driscoll R.N. Diabetes Mellitus Type 1 -- 13:51 01/15/24 RENATE Driscoll R.N. Hyperlipidemia -- 13:51 01/15/24 RENATE Driscoll R.N. Tachycardia -- 13:51 01/15/24 RENATE Driscoll R.N. Hyperthyroidism -- 13:51 01/15/24 RENATE Driscoll R.N. ADDITIONAL SURGERIES: . x3 -- 13:52 01/15/24 RENATE Driscoll R.N. Amputation Below Knee -- 13:52 01/15/24 RENATE Driscoll R.N. Angioplasty of vein. for blood clot -- 13:53 01/15/24 RENATE Driscoll R.N. History 13:48 01/15/24. PAST MEDICAL HX: Last normal menstrual period- 1 weeks ago. Denies current . SOCIAL HX: Never smoker. No alcohol use or drug use. The patient has not traveled outside the [place] Infectious disease exposure: The patient was not exposed to Coronavirus. ABUSE ASSESSMENT: The patient answered yes to the question(s) Do you feel safe in your home? and no to the question(s) Are you afraid to go home?. Abuse denied. No suspicion of abuse. SELF HARM ASSESSMENT: Self harm assessment was performed. The patient answered no to the question(s) Have you recently felt down, depressed, or hopeless? and Do you have thoughts of harming or killing yourself?. 2 of 4 Nurse Narrative FALL RISK ASSESSMENT: Fall risk assessment completed. Risk factors identified include patient history of fall. Fall interventions initiated. Side rails up x2. Bed in low position. Brakes on. Family at bedside. -- 13:58 01/15/24 EDT Skye Driscoll R.N. Interventions 13:48 01/15/24. Advanced care plan discussed with patient (Full Code). -- 13:58 01/15/24 EDT Skye Driscoll R.N. PHYSICAL ASSESSMENT 14:25 01/15/24. GENERAL / NEURO / PSYCH: Oriented X 4. Alert. Appears in no acute distress. Appears in pain. ( States she fell off a ladder yesterday and is complaining of left shoulder and left arm pain.). EXTREMITIES: Limited ROM present. Neuro-vascular status intact to the extremity. No upper extremity edema. Left shoulder. Left arm. SKIN: Skin intact. Skin is warm and dry. -- 14:25 01/15/24 EDT Emir Rodriguez R.N. NURSING PROGRESS NOTES 14:17 01/15/24. Zofran IVP 4 mg given via Site# 1. -- 14:18 01/15/24 EDT Emir Rodriguez R.N. 14:18 01/15/24. Site #1 started via IV in the right hand with an 18g angiocath with aseptic technique and good blood return; 1 attempt. Saline lock flushed with 5 mL saline. -- 14:18 01/15/24 EDT Emir Rodriguez R.N. 14:20 01/15/24. Checked patient name and birthdate: patient confirmed. Blood samples drawn from the right hand with 18g by ky ; labeled in presence of the patient: rainbow set. -- 14:24 01/15/24 EDT Emir Rodriguez R.N. 14:20 01/15/24. Fentanyl IVP 50 mcg given via Site# 1. Medication Wastage: 50 mcg wasted. -- 14:20 01/15/24 EDT Emir Rodriguez R.N. 14:30 01/15/24. Patient identifiers checked. Call light placed in reach. Side rails up. Bed placed in lowes (more content not included)... [facility] ORDER SHEET (CPOE ONLY)on ORDER SHEET (CPOE ONLY) Order Sheet Order Sheet [place] [id number] [place] [address] [id number] 01/15/2024 Patient: VENANCIO FOREMAN Sex: Female : 1985 Age: 38y MEASUREMENTS: Wt: 89.4 kg, Ht/Manny: 66.0 in, BMI: 31.80 ALLERGIES: morphine, orange MEDICATION/IV/DRIP/FLU ID ORDERS Order Description Priority Entered Acknowledged Completed Fentanyl IVP50 mcg (NOW x1) 14:04 01/15/2024 14:07 14:20 Pavel Qureshi, 01/15/2024 01/15/2024 Emir Andrew, Dania.N. R.N. Zofran IVP4 mg (NOW x1) 14:04 01/15/2024 14:07 14:18 Pavel Qureshi, 01/15/2024 01/15/2024 Caitlyn.Emir Azevedo R.N. R.N. Dilaudid IVP0.5 mg (NOW x1) 15:21 01/15/2024 15:24 Pavel Qureshi, 01/15/2024 D.Jarred Rodriguez, R.N. Reason for ordering with alerts: Benefits outweigh risks --15:21 01/15/2024 Pavel Qureshi D.O. Dilaudid IVP0.5 mg (NOW x1) 15:23 01/15/2024 15:24 Pavel Qureshi, 01/15/2024 Sam Rodriguez, 1 of 3 Order Sheet R.N. Reason for ordering with alerts: Benefits outweigh risks --15:21 01/15/2024 Pavel Qureshi D.O. Fentanyl IVP50 mcg (NOW x1) 15:24 01/15/2024 15:25 15:27 Pavel Qureshi, 01/15/2024 01/15/2024 Emir Andrew R.N. R.N. Reason for ordering with alerts: Benefits outweigh risks --15:24 01/15/2024 Pavel Qureshi D.O. LAB ORDERS Order Description Priority Entered Acknowledged Collected Completed CBC w Diff Stat Stat 14:04 01/15/2024 14:07 01/15/2024 Luz Maria Padilla D.O. R.NAd CMP Stat Stat 14:04 01/15/2024 14:07 01/15/2024 Luz Maria Padilla D.O. R.N. Urinalysis Stat Stat 14:04 01/15/2024 Cancelled: Treatment not Indicated Pavel 16:11 EDT Luz Maria London D.O. D.O. PTT Stat Stat 14:04 01/15/2024 14:07 01/15/2024 Luz Maria Padilla D.O. R.Heriberto PT with INR Stat Stat 14:04 01/15/2024 14:07 01/15/2024 Luz Maria Padilla D.O. R.Heriberto 2 of 3 Order Sheet DIAGNOSTIC STUDY ORDERS Order Description Priority Entered Acknowledged Completed CT Chest w IV Cont Stat Stat 14:04 01/15/2024 14:07 Pavel Qureshi, 01/15/2024 Sam Rodriguez R.N. Reason for Study: trauma CT ABD/PEL w IV Cont Stat Stat 14:04 01/15/2024 14:07 Pavel Qureshi, 01/15/2024 Sam Rodriguez, R.N. Reason for Study: trauma STAFF ORDERS Order Description Priority Entered Acknowledged Collected Completed [Electronically signed by Pavel Qureshi D.O. (01/16/2024 10:20 EDT)] 3 of 3 Normal [facility] PHYS CLINICAL REPORT AND ADD ENon 01-16-2024 PHYS CLINICAL REPORT AND ADDEN Narrative Physician Clinical [address] [address] [id number] 01/15/2024 Patient: VENANCIO FOREMAN Sex: Female : 1985 Age: 38y Disposition: Discharge to Home Disposition Decision Time: 16:13 01/15/2024 Departure Time: 16:20 01/15/2024 Measurements Wt: 89.4 kg, Ht/Manny: 66.0 in, BMI: 31.80 Initial Vital Sign Measured Time BP MAP HR RR O2Sat ETCO2 Temp Pain GCS RTS 13:57 01/15/2024 146/80 102 95 18 100% 98.1 F 7 Time Seen: 13:57 01/15/2024. Arrived- By private vehicle. Historian- patient. HISTORY OF PRESENT ILLNESS Chief Complaint: FALL. The injury occurred just prior to arrival. Occurred at home. ( Fell from 3-4 feet from a ladder onto her right side.). (Denies any head injury or loss of consciousness. Complaining of right hip pain radiating down her leg. Patient also having right flank pain. Currently on warfarin secondary to history of blood clot.). PAST HISTORY See nurses notes. Diabetes Mellitus Type 1 Hyperlipidemia Hypertension 1 of 12 Narrative Hyperthyroidism Tachycardia Surgeries: Amputation Below Knee Angioplasty of vein: (for blood clot) : (x3) Medications: fenofibrate 120 mg tablet: 120 mg once a day . HumaLOG U-100 Insulin 100 unit/mL subcutaneous cartridge: 1 sliding scale dose as needed for type 1 diabetes mellitus. levothyroxine 112 mcg tablet: 112 mcg once a day . lovastatin oral metoprolol tartrate 50 mg tablet: 50 mg once a day . warfarin 10 mg tablet: 15 mg once a day . Allergies: morphine: Side Effect; rash orange ADDITIONAL NOTES The nursing notes have been reviewed. PHYSICAL EXAM Vital Signs: Have been reviewed. Appearance: Alert. No acute distress. Head: Head non-tender. No swelling of head. Eyes: Pupils equal, round and reactive to light. EOM intact. ENT: No dental injury. Neck: Painless ROM. Non-tender. CVS: Heart sounds normal. Pulses normal. Respiratory: Breath sounds normal. Chest nontender. Abdomen: No visible injury. Soft. Mild tenderness in the right side of the abdomen. Back: No tenderness. ROM normal. Skin: Skin warm and dry. Normal skin color. 2 of 12 Narrative Extremities: Soft tissue tenderness present (Tenderness palpation the right hip.). Neuro: No motor deficit. No sensory deficit. LABS, X-RAYS, AND EKG Chest CT: Lungs normal. No fractures noted. The study was independently viewed by me and interpreted by the radiologist. CT Abdomen, Pelvis: Normal study. The study was independently viewed by me and interpreted by the radiologist. Laboratory Tests: APTT Final VIN: 01/15/2024 14:20:00 EDT MsgRcvd: 01/15/2024 15:14 EDT Lab Test Result Reference Status Received Comments 01/15/2024 15:14 PTT 34.8 sec 25.4 - 38.4 Final EDT CBC + DIFF Final VIN: 01/15/2024 14:20:00 EDT MsgRcvd: 01/15/2024 14:56 EDT Lab Test Result Reference Status Received Comments 01/15/2024 14:56 CBC-COMPLETE CBC + DIFF Final EDT BLOOD COUNT 01/15/2024 14:56 WBC 8.5 x 10/UL 4.5 - 10.8 Final EDT 5.39 x 10/UL 01/15/2024 14:56 RBC 4.10 - 5.30 Final Above high normal EDT 01/15/2024 14:56 HEMOGLOBIN 15.0 g/dl 12.0 - 16.0 Final EDT 3 of 12 Narrative 01/15/2024 14:56 HEMATOCRIT 43.5 % 34.0 - 46.0 Final EDT 01/15/2024 14:56 MCV 81 fl 80 - 99 Final EDT 01/15/2024 14:56 MCH 28 pg 27 - 33 Final EDT 01/15/2024 14:56 MCHC 35 X10 3 32 - 36 Final EDT 01/15/2024 14:56 RDW/CV 14.7 % 12.0 - 15.6 Final EDT 01/15/2024 14:56 PLATELET 253 x10/UL 150 - 450 Final EDT 01/15/2024 14:56 AUTOMATED MPV 9.0 fl 6.6 - 10.5 Final EDT DIFFERENTIAL 01/15/2024 14:56 NEUT % 74.4 % 46.0 - 76.0 Final EDT 19.4 % 01/15/2024 14:56 LYMPH % 20.0 - 45.0 Final Below low normal EDT 01/15/2024 14:56 MONOS % 3.7 % 0.0 - 10.0 Final EDT 01/15/2024 14:56 EO % 2.2 % 0.0 - 7.0 Final EDT 01/15/2024 14:56 BASO % 0.3 % 0.0 - 2.0 Final EDT 01/15/2024 14:56 Lymph # 1.65 x10/UL 0.80 - 2.80 Final EDT 01/15/2024 14:56 Neut # 6.33 x10/UL 1.50 - 7.10 Final EDT 4 of 12 Narrative 01/15/2024 14:56 [place]atham # 0.32 x10/UL 0.20 - 1.00 Final EDT 01/15/2024 14:56 EO # 0.18 x10/UL 0.00 - 0.50 Final EDT 01/15/2024 14:56 Baso # 0.02 x10/UL 0.00 - 0.10 Final EDT 01/15/2024 14:56 MANUAL DIFF N/A New Order EDT 01/15/2024 14:56 MORPHOLOGY N/A New Order EDT CMP with eGFR Final VIN: 01/15/2024 14:20:00 EDT MsgRcvd: 01/15/2024 15:16 EDT Lab Test Result Reference Status Received Comments COMPREHENSIVE 01/15/2024 CMP with eGFR Final METABOLIC 15:16 EDT PANEL 01/15/2024 SODIUM 141 mmol/l 136 - 145 Final 15:16 EDT 01/15/2024 POTASSIUM 3.9 mmol/L 3.5 - 5.1 Final 15:16 EDT 01/15/2024 CHLORIDE 103 mmol/L (more content not included)... [facility] PHYS CODING SUMMARY SALES ADMINISTRATION SPECIALIST AB Walter 01-16-2024 PHYS CODING SUMMARY SALES ADMINISTRATION SPECIALIST ABST Coding Summary Coding Summary [address] [place] [address] [id number] 01/15/2024 Patient: VENANCIO FOREMAN Sex: Female : 1985 Age: 38y ICD-10 Codes S70.01xA: Contusion of right hip, initial encounter This is a partial abstract of information documented in the full record. Shipyard Painter Helper must use independent judgment in selecting codes. CPT copyright 2022 [employer]. All Rights Reserved. 1 of 1 Normal [facility] SUPER BILLon 01-16-2024 SUPER BILL Superbill [address] [address] [phone] 01/15/2024 Patient: VENANCIO FOREMAN Sex: Female : 1985 Age: 38y Facility Professional Category Item Description Code Code Quantity Fee Total Nurse/E/M EMERGENCY 203298 1 $0.00 $0.00 DEPT VISIT HIGH SEVERITYFUNCJ (25834-00) Nurse/IV/IM/Infusions IVP additional 358450 1 $0.00 $0.00 push (12500) Nurse/IV/IM/Infusions IVP initial (29168) 327306 1 $0.00 $0.00 Nurse/IV/IM/Infusions IVP same med 979060 1 $0.00 $0.00 (31 min apart) (10749) Grand $0.00 Total Providers Pavel Qureshi D.O. Chief Complaint FALL. 1 of 2 [facility] Principal Diagnosis Contusion to the right hip. ICD-10 Codes S70.01xA: Contusion of right hip, initial encounter 2 of 2 Normal [facility] VISIT SUMMARYon 01-16-2024 VISIT SUMMARY Visit Overview Visit Overview [address] [address] [id number] 01/15/2024 Patient: VENANCIO FOREMAN Sex: Female : 1985 Age: 38y 01/16/2024 10:20 AM EDT ED Arrival:13:47 01/15/2024 EDT Status:not Recent Travel:no Language:eng Adv Directive: Isolation Status: Ethnicity:N Fall Risk:risk Infectious Disease Exposure:no Measurements:5'6 / 167.6 Self-Harm Status:risk Sepsis Screen:negative cm 197.0 lb / 89.4 kg Chief Complaint:LEFT UPPER EXTREMITY PAIN, (ladder), and (pt fell off ladder landing on left side, denies any LOC or head injury ) ALLERGIES morphine - rash orange HOME MEDICATIONS fenofibrate 120 mg tablet: 120 mg once a day . HumaLOG U-100 Insulin 100 unit/mL subcutaneous cartridge: 1 sliding scale dose as needed for type 1 diabetes mellitus. 1 3 Visit Overview levothyroxine 112 mcg tablet: 112 mcg once a day . lovastatin oral metoprolol tartrate 50 mg tablet: 50 mg once a day . warfarin 10 mg tablet: 15 mg once a day . PAST MEDICAL HISTORY / PROBLEMS Diabetes Mellitus Type 1 Hyperlipidemia Hypertension Hyperthyroidism Last normal menstrual period- 1 weeks ago See nurses notes Tachycardia PAST SURGICAL HISTORY Amputation Below Knee Angioplasty of vein. for blood clot . x3 SOCIAL HISTORY Smoking status: No Alcohol use: No Drug use: No ED COURSE MEDICATIONS GIVEN IN EMERGENCY DEPARTMENT 14:17 01/15/24 Zofran IVP 4 mg 14:20 01/15/24 Fentanyl IVP 50 mcg 15:27 01/15/24 Fentanyl IVP 50 mcg IV SITE INFORMATION INTAKE OUTPUT 2 of 3 Visit Overview REASSESMENT (most recent) 14:25 01/15/24. GENERAL / NEURO / PSYCH: Oriented X 4. Alert. Appears in no acute distress. Appears in pain. ( States she fell off a ladder yesterday and is complaining of left shoulder and left arm pain.). EXTREMITIES: Limited ROM present. Neuro-vascular status intact to the extremity. No upper extremity edema. Left shoulder. Left arm. SKIN: Skin intact. Skin is warm and dry. VITAL SIGNS First Vitals Last Vitals Temp 13:57 01/15/24 98.1 F Temp 16:28 01/15/24 98.7 F BP 13:57 01/15/24 146/80 BP 16:28 01/15/24 124/69 HR 13:57 01/15/24 95 HR 16:28 01/15/24 78 RR 13:57 01/15/24 18 RR 16:28 01/15/24 16 O2 Sat 13:57 01/15/24 100% O2 Sat 16:28 01/15/24 98% Pain 13:57 01/15/24 7 Pain 16:28 01/15/24 4 ETCO2 13:57 01/15/24 ETCO2 16:28 01/15/24 GCS 13:57 01/15/24 GCS 16:28 01/15/24 RTS 13:57 01/15/24 RTS 16:28 01/15/24 PROCEDURES NURSING INTERVENTIONS LABS / STUDIES LABS / STUDIES ORDERED CBC w Diff CMP CT ABD/PEL w IV Cont CT Chest w IV Cont PT with INR PTT CLINICAL IMPRESSION CONTUSION TO THE RIGHT HIP 3 of 3 Normal [facility] APTTon 01-15-2024 aPTT Coag (Bld) [Time] 34.8 s Normal 25.4 - 38.4 [facility] Comment on above: Performed By: #### 2 [id number] #### [facility],[address] [place] [address] CBC + DIFFon 01-15-2024 Baso # 0.02 x10EE3/UL Normal 0.00 - 0.10 [facility] Comment on above: Performed By: #### 2 21687 #### [facility],[address] [place], [place] [id number] Basophils/100 WBC (Bld) 0.3 % Normal 0.0 - 2.0 [facility] Comment on above: Performed By: #### 2 85211 #### [facility],[address] [place] [address] CBC + DIFF Normal [facility] Comment on above: Result Comment: CBC- COMPLETE BLOOD COUNT Performed By: #### 2 55770 #### [facility],[address] [place] [address] EO # 0.18 x10EE3/UL Normal 0.00 - 0.50 [facility] Comment on above: Performed By: #### 2 49952 #### [facility],[address] [place], [place] [id number] Eosinophils/100 WBC (Bld) 2.2 % Normal 0.0 - 7.0 [facility] Comment on above: Performed By: #### 2 22922 #### [facility],[address] [place] [address] Erythrocyte distribution width (RBC) [Ratio] 14.7 % Normal 12.0 - 15.6 [facility] Comment on above: Performed By: #### 2 83290 #### [facility] [place] [address] 36527 Hematocrit (Bld) [Volume fraction] 43.5 % Normal 34.0 - 46.0 [facility] Comment on above: Performed By: #### 2 42806 #### [facility],[address] [place] [address] 65402 Hemoglobin (Bld) [Mass/Vol] 15.0 g/dL Normal 12.0 - 16.0 [facility] Comment on above: Performed By: #### 2 89320 #### [facility],[address] [place] [address] 61002 Lymph # 1.65 x10EE3/UL Normal 0.80 - 2.80 [facility] Comment on above: Performed By: #### 2 88163 #### [facility],[address] [place] [address] 22115 Lymphocytes/100 WBC (Bld) 19.4 % Low 20.0 - 45.0 [facility] Comment on above: Performed By: #### 2 65736 #### [facility],[address] [place] [address] 50970 MANUAL DIFF N/A Normal [facility] Comment on above: Performed By: #### 2 59218 #### [facility],[address] [place] [address] 86393 MCH (RBC) [Entitic mass] 28 pg Normal 27 - 33 [facility] Comment on above: Performed By: #### 2 57213 #### [facility],[address] [place] [address] 26199 MCHC 35 X10 3 Normal 32 - 36 [facility] Comment on above: Performed By: #### 2 19434 #### [facility],[address] [place] [address] 69964 MCV (RBC) [Entitic vol] 81 fL Normal 80 - 99 [facility] Comment on above: Performed By: #### 2 90068 #### [facility],[address] [place] [address]146 [place]atham # 0.32 x10EE3/UL Normal 0.20 - 1.00 [facility] Comment on above: Performed By: #### 2 93508 #### [facility],[address] [place] [address] 15778 MONOS % 3.7 % Normal 0.0 - 10.0 [facility] Comment on above: Performed By: #### 2 95791 #### [facility],[address] [place] [address] 26738 Morphology Abdelrahman (Bld) [Interp] N/A Normal [facility] Comment on above: Performed By: #### 2 74003 #### [facility],[address] [place] [address] 99701 Neut # 6.33 x10EE3/UL Normal 1.50 - 7.10 [facility] Comment on above: Performed By: #### 2 90781 #### [facility],[address] [place] [address] 86248 Neutrophils/100 WBC (Bld) 74.4 % Normal 46.0 - 76.0 [facility] Comment on above: Performed By: #### 2 57259 #### [facility],[address] [place] [address] 85267 PLATELET 253 x10EE3/UL Normal 150 - 450 [facility] Comment on above: Performed By: #### 2 20615 #### [facility],[address] [place] [address] 70113 Platelet mean volume (Bld) [Entitic vol] 9.0 fL Normal 6.6 - 10.5 [facility] Comment on above: Result Comment: AUTO MATED DIFFERENTIAL Performed By: #### 2 20184 #### [facility],[address] [place] [address] 94480 RBC 5.39 x 10EE6/UL High 4.10 - 5.30 [facility] Comment on above: Performed By: #### 2 57275 #### [facility],[address] [place] [address] 09635 WBC 8.5 x 10EE3/UL Normal 4.5 - 10.8 [facility] Comment on above: Performed By: #### 2 53212 #### [facility],[address] [place] [address] 30591 CMP with eGFRon 01-15-2024 AGE 38 years Normal [facility] Comment on above: Performed By: #### 2 96206 #### [facility],[address] [place] [address] 33659 Albumin [Mass/Vol] 3.5 g/dL Normal 3.4 - 5.0 [facility] Comment on above: Performed By: #### 2 50886 #### [facility],[address] [place], [place] [address] Albumin/Globulin [Mass ratio] 1.1 {ratio} Normal 0.9 - 1.6 [facility] Comment on above: Performed By: #### 2 86273 #### [facility],[address] [place] [address] 70062 ALK PHOS 73 U/L Normal 46 - 116 [facility] Comment on above: Performed By: #### 2 20967 #### [facility],[address] [place] [address] 28089 ALT [Catalytic activity/Vol] 28 U/L Normal 16 - 63 [facility] Comment on above: Performed By: #### 2 20253 #### [facility],[address] [place] [address] 23809 Anion gap [Moles/Vol] 16 mmol/L Normal 10 - 20 [facility] Comment on above: Performed By: #### 2 10964 #### [facility],[address] [place] [address] 73316 AST [Catalytic activity/Vol] 15 U/L Normal 13 - 39 [facility] Comment on above: Performed By: #### 2 64483 #### [facility],[address] [place] [address] 73190 B/C RATIO 13 ratio Normal 0 - 30 [facility] Comment on above: Performed By: #### 2 25719 #### [facility],[address] [place] [address] 42282 Bilirubin [Mass/Vol] 0.5 mg/dL Normal 0.2 - 1.0 [facility] Comment on above: Performed By: #### 2 23926 #### [facility],[address] [place] [address] 62411 Calcium [Mass/Vol] 9.0 mg/dL Normal 8.5 - 10.1 [facility] Comment on above: Performed By: #### 2 91466 #### [facility],[address] [place] [address] 55293 Chloride [Moles/Vol] 103 mmol/L Normal 98 - 107 [facility] Comment on above: Performed By: #### 2 03138 #### [facility],[address] [place] [address] CMP with eGFR Normal [facility] Comment on above: Result Comment: COMP REHENSIVE METABOLIC PANEL Performed By: #### 2 80640 #### [facility],[address] [place] [address] 30795 CO2 [Moles/Vol] 26.2 mmol/L Normal 21.0 - 32.0 [facility] Comment on above: Performed By: #### 2 94892 #### [facility],[address] [place] [address] 94499 Creatinine [Mass/Vol] 0.80 mg/dL Normal 0.55 - 1.02 [facility] Comment on above: Performed By: #### 2 60396 #### [facility],[address] [place], [place] [address] GFR/1.73 sq M.predicted among non-blacks MDRD (S/P/Bld) [Vol rate/Area] mL/min/{1.73_m2} Normal 60 - 999 [facility] Comment on above: Performed By: #### 2 96333 #### [facility],[address] [place] [address] 63199 Result Comment: ACCO RDING TO THE NATIONAL KIDNEY DISEASE EDUCATION PROGRAM(NKDE), A NORMAL eGFR IS A VALUE GREATER THAN OR EQUAL TO 60 ML/MIN/1.73 SQ METERS. CHRONIC KIDNEY DISEASE: <60mL/MIN/1.73 SQ METERS KIDNEY FAILURE: <15mL/MIN/1.73 SQ METERS THIS TEST SHOULD ONLY BE USED FOR PATIENTS 18 YEARS OF AGE AND OLDER. Globulin (S) [Mass/Vol] 3.3 g/dL Normal 1.5 - 3.8 [facility] Comment on above: Performed By: #### 2 14755 #### [facility],[address] [place] [address] 12965 Glucose [Mass/Vol] 259 mg/dL High 74 - 106 [facility] Comment on above: Performed By: #### 2 85869 #### [facility],[address] [place] [address] 66218 Potassium [Moles/Vol] 3.9 mmol/L Normal 3.5 - 5.1 [facility] Comment on above: Performed By: #### 2 80963 #### [facility],[address] [place] [address] 17218 Protein [Mass/Vol] 6.8 g/dL Normal 6.4 - 8.2 [facility] Comment on above: Performed By: #### 2 79214 #### [facility],[address] [place] [address] 12445 Sodium [Moles/Vol] 141 mmol/L Normal 136 - 145 [facility] Comment on above: Performed By: #### 2 46357 #### [facility],[address] [place] [address] 74419 Urea nitrogen [Mass/Vol] 10 mg/dL Normal 7 - 18 [facility] Comment on above: Performed By: #### 2 06166 #### [facility],[address] [place] [address] CHEST/ABD/PELVIS C+on CT CHEST/ABD/PELVIS C+ [address] [address] Patient: VENANCIO FOREMAN Phone#: : 1985 Age: 38 Gender: F Pt. Type: ER Account: [id number] Location: [facility] Ordering: PAVEL QURESHI Exam Date: 01/15/2024/15:34 Family Phys: Charge Code: 241171 Physician: [place] Order #: [id number] Dose#: [id number] PROCEDURE: CT CHEST/ABD/PELVIS W COMPARISON: None. INDICATIONS: Trauma. TECHNIQUE: After obtaining the patient's consent, CT images were obtained with intravenous contrast material. All CT scans at this facility use dose modulation, iterative reconstruction, and/or weight based dosing when appropriate to reduce radiation dose to as low as reasonably achievable. IV CONTRAST: Omnipaque 350,80ml CHEST DOSE: 11.9 CTDIvol(mGy) ABDOMEN DOSE: 20.2 CTDIvol(mGy) FINDINGS: LUNGS: Normal. No visible pulmonary disease. VASCULATURE: Normal. No visible pulmonary arterial thrombus or attenuation. ALHAJI: Normal. No mass or adenopathy. MEDIASTINUM: Normal. No mass or adenopathy. CARDIAC: Normal. No enlargement, pericardial thickening, or significant calcification. PLEURA: Normal. No mass or effusion. CHEST WALL: Normal. No mass or axillary adenopathy. LIVER: Normal. No enlargement, atrophy, abnormal density, or significant focal lesion. BILIARY: The gallbladder is absent. Surgical clips are present in the gallbladder fossa. PANCREAS: Normal. No lesion, fluid collection, ductal dilatation, or atrophy. SPLEEN: Normal. No enlargement or focal lesion. KIDNEYS: Normal. No mass, obstruction, or calcification. ADRENALS: There is a 2.8 centimeter left adrenal nodule. AORTA/VASCULAR: Dense calcification is present at the common iliac arteries. No aneurysm or dissection. RETROPERITONEUM: Normal. No mass or adenopathy. BOWEL/MESENTERY: Normal. No visible mass, obstruction, or bowel wall thickening. Continued Report - Page 2 of 2 Patient: VENANCIO FOREMAN Phone#: : 1985 Age: 38 Gender: F Pt. Type: ER Account: [id number] Location: 05 Ordering: PAVEL QURESHI Exam Date: 01/15/2024/15:34 Family Phys: Charge Code: 112300 Physician: [place] Order #: [id number] Dose#: [id number] ABDOMINAL WALL: Normal. No mass or hernia. URINARY BLADDER: Normal. No visible focal wall thickening, lesion, or calculus. PELVIC NODES: Normal. No adenopathy. PELVIC ORGANS: 2.3 centimeter left adnexal cyst is present. No visible mass. Pelvic organs appropriate for patient age. BONES: Normal. No bony lesion or fracture. OTHER: Negative. CONCLUSION: 1. There is no evidence of acute bone abnormality. 2. There is no evidence of acute thoracic abnormality. 3. There is no evidence of solid organ injury. Dictated by: Brissa Montes De Oca MD on 01/15/2024 at 15:50 Approved by: Brissa Montes De Oca MD on 01/15/2024 at 16:00 Normal [facility] PROTHROMBIN TIME AND INRon 1 0 INR Coag (PPP) [Relative time] 1.6 {INR} High 0.8 - 1.2 [facility] Comment on above: Result Comment: T HE HEMOSIL THROMBOPLASTIN REAGENT USED IN THE PROTHROMBIN TIME TEST INTERACTS WITH THE DRUG CUBICIN (DAPTOMYCIN) AND WILL RESULT IN FALSELY ELEVATED PT / INR RESULTS INR INTERPRETATION INR INDICATION PREVENTION AND TREATMENT OF THROMBOEMBOLISM ASSOCIATED WITH: 2.0 - 3.0 ATRIAL FIBRILLATION, BIOPROSTHETIC HEART VALVES, PULMONARY EMBOLISM, VENOUS THROMBOSIS, SYSTEMIC EMBOLISM POST MYOCARDIAL INFARCTION 2.5 - 3.5 MECHANICAL HEART VALVES Performed By: #### 2 44236 ####[facility],[address] [place] [address] 52991 PROTHROMBIN TIME AND INR Normal [facility] Comment on above: Result Comment: PROT HROMBIN TIME AND INR Performed By: #### 2 38296 ####[facility],[address] [place] [address] 78964 PT-COUMADIN 17.3 sec High 9.3 - 14.1 [facility] Comment on above: Performed By: #### 2 39643 ####[facility],[address] [place] [address] 04611 Comprehensive Metabolic Prof [facility] 01-11-2024 Albumin [Mass/Vol] 3.6 g/dL Normal 3.2-5.0 [facility] Comment on above: Performed By: #### L 500.4100, L501.9520, L500.4050 #### [facility] [address] [place], [address] Albumin/Globulin [Mass ratio] 0.9 {ratio} Normal 0.9-2.4 [facility] Comment on above: Performed By: #### L 500.4100, L501.9520, L500.4050 #### [facility] [address] [place], [address] ALK P 76 U/L Normal 45-117 [facility] Comment on above: Performed By: #### L 500.4100, L501.9520, L500.4050 #### [facility] [address] [place], [address] ALT [Catalytic activity/Vol] 28 U/L Normal 13-56 [facility] Comment on above: Performed By: #### L 500.4100, L501.9520, L500.4050 #### [facility] [address] [place], [address] AST [Catalytic activity/Vol] 17 U/L Normal 15-37 [facility] [facility] Comment on above: Performed By: #### L 500.4100, L501.9520, L500.4050 #### [facility] [address] [place], [address] Bilirubin [Mass/Vol] 0.40 mg/dL Normal 0.20-1.00 [facility] Comment on above: Result Comment: For patients on eltrombopag therapy, use of Dimension [place] TBIL is not recommended. Performed By: #### L 500.4100, L501.9520, L500.4050 #### [facility] [address] [place], [address] BUN/CRE 17.9 RATIO Normal 10-20 [facility] Comment on above: Performed By: #### L 500.4100, [id number], [id number] #### [facility] [address] [place], [address] CA,Total 9.9 mg/dL Normal 8.5-10.1 [facility] Comment on above: Performed By: #### L 500.4100, [id number], L500.4050 #### [facility] [address] [place], [address] Chloride [Moles/Vol] 104 mmol/L Normal 98-107 [facility] Comment on above: Performed By: #### L 500.4100, [id number], L500.4050 #### [facility] [address] [place], [address] CO2 [Moles/Vol] 25.0 mmol/L Normal 21.0-32.0 [facility] Comment on above: Performed By: #### L 500.4100, [id number], L500.4050 #### [facility] [address] [place], [address] Creatinine [Mass/Vol] 0.72 mg/dL Normal 0.55-1.02 [facility] Comment on above: Result Comment: The validity of the calculated GFR GFRAA in patients over 70 years has not been determined. Clinical correlation is essential. Performed By: #### L 500.4100, L501.9520, L500.4050 #### [facility] [address] [place], [address] EST GFR - AA 116 mL/min Normal >60 [facility] Comment on above: Result Comment: Afri can Nepalese GFR Calc Performed By: #### L 500.4100, L501.9520, L500.4050 #### [facility] [address] [place], [address] GAP 6 Normal 5-15 [facility] Comment on above: Performed By: #### L 500.4100, L501.9520, L500.4050 #### [facility] [address] [place], [address] GFR/1.73 sq M.predicted among non-blacks MDRD (S/P/Bld) [Vol rate/Area] 96 mL/min/{1.73_m2} Normal >60 [facility] Comment on above: Result Comment: Non- GFR Calc Performed By: #### L 500.4100, L501.9520, L500.4050 #### [facility] [address] [place], [address] Globulin (S) [Mass/Vol] 4.2 g/dL Normal 2.2-4.2 [facility] Comment on above: Performed By: #### L 500.4100, L501.9520, L500.4050 #### [facility] [address] [place], [address] Glucose [Mass/Vol] 223 mg/dL High 74-106 [facility] Comment on above: Result Comment: Gluc ose result greater than or equal to 200 mg/dL suggests DIABETES MELLITUS per A.D.A. criteria. Performed By: #### L 500.4100, L501.9520, L500.4050 #### [facility] [address] [place], [address] Potassium [Moles/Vol] 3.9 mmol/L Normal 3.5-5.1 [facility] Comment on above: Performed By: #### L 500.4100, [id number], L500.4050 #### [facility] [address] [place], [address] Sodium [Moles/Vol] 135 mmol/L Low 136-145 [facility] Comment on above: Performed By: #### L 500.4100, [id number], L500.4050 #### [facility] [address] [place], [address] T PROT 7.8 g/dL Normal 6.4-8.2 [facility] Comment on above: Performed By: #### L 500.4100, [id number], L500.4050 #### [facility] [address] [place], [address] Urea nitrogen [Mass/Vol] 13 mg/dL Normal 7-18 [facility] Comment on above: Performed By: #### L 500.4100, [id number], L500.4050 #### [facility] [address] [place], [address] Internal Medicine Office Vis leon 01-11-2024 Internal Medicine Office Visit [facility] [address] [place] [address] [place] [address] OFFICE VISIT Date of Service: 01/11/24 MR#: [id number] Acct: [id number] Name: VENANCIO FOREMAN Rep #: [id number] : 1985 Provider: SANDI zavala Age/Sex: 38/F Location: [email or web address] Status: Signed with Addenda ADDENDUM by SANDI Buitrago on 01/11/24 at 1235 HPI Details: VENANCIO FOREMAN, is a 38 F who presents to the office today for ROS Gastro GI: Positive for Blood in stool Assessment and Plan Assessment and Plan (1) Cervicalgia: Status: Acute (2) Bloody stool: Status: Acute (3) Peripheral arterial disease with history of revascularization: Status: Acute (4) HTN (hypertension): Status: Chronic Qualifiers: Hypertension type: unspecified Qualified Code(s): I10 - Essential (primary) hypertension (5) Chronic anticoagulation: Status: Acute (6) Type 1 diabetes mellitus: Status: Chronic Qualifiers: Diabetes mellitus complication status: with kidney complications Diabetes mellitus complication detail: with diabetic microalbuminuria Qualified Code(s): 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 - Type 1 diabetes mellitus with other diabetic kidney complication; R80.9 - Proteinuria, unspecified (7) Hyperlipidemia: Status: Acute Qualifiers: Hyperlipidemia type: mixed hyperlipidemia Qualified Code(s): E78.2 - Mixed hyperlipidemia (8) Depression with anxiety: Status: Acute (9) Neuropathy: Status: Chronic Orders: Orders Cerv Spine 2 or 3 Views Today M54.2 - Cervicalgia Stool Occult Blood iFOB Today K92.1 - Melena Medications: Refilled atorvastatin 40 mg PO DAILY 30 tabs 2RF 30 days E10.9 - Type 1 diabetes mellitus without complications fenofibrate nanocrystallized 145 mg PO DAILY 30 tabs 2RF levothyroxine 112 mcg PO DAILY 30 caps 1RF E03.9 - Hypothyroidism, unspecified losartan 50 mg PO DAILY 90 tabs 1RF E10.9 - Type 1 diabetes mellitus without complications, I10 - Essential (primary) hypertension pantoprazole (Protonix) 40 mg PO BID 60 tabs 1RF warfarin 15 mg (1.5 x 10 mg) PO DAILY 45 tabs 0RF 01/11/24 1235 Date Ivanna Buitrago cc: * Signed Intake Vital Signs 10/20/23 10:42 12/06/23 14:41 01/11/24 10:15 Height 5 ft 6 in 5 ft 6 in 5 ft 6 in Weight: 197 lb 195 lb BMI 31.8 31.4 BP 132/80 H 118/62 Blood Pressure Location Lt brachial Lt brachial Position Sitting Sitting Respiration 16 Pulse 122 H 67 Pulse Source Monitor Palpation Temp 97.3 F L Temp Source Temporal Pulse Oximetry (%) 96 Oxygen Delivery Method room air Intake Visit Reasons: 3 M FU Chief Complaint: 3m f/u Lubricating Specialist Required: No Accompanied by: Self Is patient in pain?: No Allergies morphine Allergy (Intermediate, Verified 01/11/24 10:11) Rash orange Allergy (Verified 01/11/24 10:11) Rash Medications ???Medication ???Instructions ???Recorded ???Confirmed ???Type aspirin 81 mg tablet,delayed 81 mg PO DAILY 30 days #30 tabs 03/14/23 01/11/24 Rx release (Adult Low Dose Aspirin) insulin syr/ndl U100 half jesús 0.3 #100 ea 03/14/23 01/11/24 Rx mL 30 gauge x 1/2 metoprolol succinate 100 mg 100 mg PO DAILY 30 days #30 tabs 07/13/23 01/11/24 Rx tablet,extended release 24 hr (Toprol XL) pen needle, diabetic 32 gauge x #1,200 ea 07/13/23 01/11/24 Rx 5/32 (BD Ultra-Fine Elyssa Pen Needle) blood sugar diagnostic (OneTouch #100 ea 07/17/23 01/11/24 Rx Verio test strips) blood-glucose meter (OneTouch #1 ea 07/17/23 01/11/24 Rx Verio Flex Meter) lancets 30 gauge (Onetouch Delica #200 ea 07/17/23 01/11/24 Rx Safety Lancet) amitriptyline 25 mg tablet 25 mg PO QHS 09/06/23 01/11/24 History desvenlafaxine succinate 25 mg 25 mg PO DAILY #30 tabs 09/06/23 01/11/24 Rx tablet,extended release 24 hr (Pristiq) insulin lispro 100 unit/mL 250 unit (2.5 mL) continuous 09/27/23 01/11/24 Rx subcutaneous solution (Humalog subcutaneous infusion .continuous U-100 Insulin) #75 mL Guardian 4 Glucose Sensor #10 ea 11/02/23 01/11/24 Rx (blood-glucose sensor) insulin lispro 200 unit/mL (3 mL) 350 unit (1.75 mL) subcut 11/02/23 01/11/24 Rx subcutaneous pen (Humalog KwikPen .continuous #52.3 mL U-200 Insulin) cilostazol 100 mg tablet 100 mg PO BID #60 tabs 11/09/23 01/11/24 Rx blood-glucose transmitter #1 ea 11/15/23 01/11/24 Rx (Guardian 4 Transmitter device) cariprazine 1.5 mg capsule 1.5 mg PO QDAY 12/06/23 01/11/24 History (Vraylar) eszopiclone 2 mg tablet 2 mg PO QHS 12/06/23 01/11/24 History atorvastatin 40 mg tablet 40 mg PO DAILY 30 days #30 tabs 01/11/24 01/11/24 Rx fenofibrate nanocrystallized 145 145 mg PO DAILY #30 tabs 01/11/24 01/11/24 Rx mg tablet levothyroxine 112 mcg capsule 112 mcg PO DAILY #30 caps 01/11/24 01/11/24 (more content not included)... Normal [facility] Lipid Profileon 01-11-2024 Cholesterol [Mass/Vol] 179 mg/dL Normal 200 [facility] Comment on above: Result Comment: <200 mg/dL Desirable 200-240 mg/dL Borderline >240 mg/dL High Risk Performed By: #### L 500.4100, L501.9520, L500.4050 #### [facility] [address] [place], [address] Cholesterol in HDL [Mass/Vol] 24 mg/dL Low [facility] Comment on above: Result Comment: The drugs N-Acetylcysteine and Metamizole may falsely depress this assay. Reference Range HDL <40 mg/dL Low HDL Cholesterol HDL >or= 60 mg/dL High HDL Cholesterol Performed By: #### L 500.4100, L501.9520, L500.4050 #### [facility] [address] [place], [address] LDL TNP Normal 0-130 [facility] Comment on above: Performed By: #### L 500.4100, [id number], L500.4050 #### [facility] [address] [place], [address] Triglyceride [Mass/Vol] 542 mg/dL High [facility] Comment on above: Result Comment: The drugs N-Acetylcysteine and Metamizole may falsely depress this assay. TRIGLYCERIDE IS GREATER THAN 400 mg/dL. LDL RESULT IS INVALID AND WILL NOT BE REPORTED. Serum Triglycerides Reference Interval Normal <150 mg/dL Borderline high 150 - 199 mg/dL High 200 - 499 mg/dL Very High > or = 500 mg/dL Performed By: #### L 500.4100, L501.9520, L500.4050 #### [facility] [address] [place], [address] VLDL TNP Normal 5-40 [facility] Comment on above: Performed By: #### L 500.4100, [id number], L500.4050 #### [facility] [address] [place], [address] Prothrombin Time w/INRon INR Coag (PPP) [Relative time] 1.4 {INR} Normal [facility] Comment on above: Performed By: #### L 300.3900 ####[facility] [address] [place], [address] PT Coag (PPP) [Time] 17.5 s High 11.7-14.9 [facility] Comment on above: Performed By: #### L 300.3900 ####[facility] [address] [place], [address] T4 Free Directon 01-11-2024 T4 FREE DIRECT 1.03 ng/dL Normal 0.76-1.46 [facility] Comment on above: Order Comment: brionna ayala draw with Ivanna Renner's TSH at time Performed By: #### L 506.0400 #### [facility] [address] [place], [address] Thyroid Stim Hormone (TSH)on 01-11-2024 TSH 2.090 uIU/mL Normal 0.358-3.740 [facility] Comment on above: Performed By: #### L 500.3214, L501.9578, L500.4050 #### [facility] [address] [place], [address] Absolute lymphocyte countOrd ered By: Ivanna Foxcarmen on 07-14-2023 Lymphocytes Auto (Unsp spec) [#/Vol] 2.66 10*3/uL 0.83-4.51 [facility] Automated lymphocyte count a s percentage of total leukocytesOrdered By: Ivanna Buitrago on 07-14-2023 Lymphocytes/100 WBC Auto (Unsp spec) 29.8 % 19-41 [facility] Basophil percentageOrdered B y: Ivanna Foxcarmen on 07-14-2023 Basophils/100 WBC (Bld) 0.7 % 0-1 [facility] Bilirubin [Mass/Vol] 0.60 mg/dL 0.20-1.00 [facility] Comment on above: For patients on eltr ombopag therapy, use of Dimension [place] TBIL is not recommended. Chloride [Moles/Vol] 101 mmol/L 98-107 [facility] Cholesterol [Mass/Vol] 245 mg/dL <200 [facility] Comment on above: <200 mg/dL Desirable 200-240 mg/dL Borderline >240 mg/dL High Risk Eosinophils/100 WBC (Bld) 1.3 % 0-5 [facility] Glucose [Mass/Vol] 544 mg/dL 74-106 [facility] Comment on above: Glucose result great er than or equal to 200 mg/dLsuggests DIABETES MELLITUS per A.D.A. criteria. Hemoglobin (Bld) [Mass/Vol] 15.4 g/dL 12.0-15.0 [facility] Monocytes/100 WBC (Bld) 4.6 % 0-10 [facility] Neutrophils (Bld) [#/Vol] 5.6 10*3/uL 2.0-7.7 [facility] Neutrophils/100 WBC (Bld) 63.3 % 47-70 [facility] Potassium [Moles/Vol] 4.7 mmol/L 3.5-5.1 [facility] Comment on above: Slight Hemolysis, Re sult may be falsely increased. Protein [Mass/Vol] 7.5 g/dL 6.4-8.2 [facility] Sodium [Moles/Vol] 129 mmol/L 136-145 [facility] Triglyceride [Mass/Vol] 1109 mg/dL <199 [facility] Comment on above: The drugs N-Acetylcy steine and Metamizole may falsely depress this assay. Serum Triglycerides Reference Interval Normal <150 mg/dL Borderline high 150 - 199 mg/dL High 200 - 499 mg/dL Very High > or = 500 mg/dL WBC (Bld) [#/Vol] 8.9 10*3/uL 4.4-11.0 [facility] Determination of erythrocyte mean corpuscular volume (MCV)Ordered By: Ivanna Buitrago on 07-14-2023 MCV (RBC) [Entitic vol] 78.0 fL 81-99 [facility] Erythrocyte distribution wid th ratioOrdered By: Ivanna Buitrago on 07-14-2023 Erythrocyte distribution width (RBC) [Ratio] 12.5 % 11.6-14.6 [facility] Erythrocyte distribution wid th standard deviationOrdered By: Ivanna Buitrago on 07-14-2023 Erythrocyte distribution width (RBC) [Entitic vol] 35.2 fL 35.1-43.9 [facility] Hematocrit Auto (Bld) [Volum e fraction]Ordered By: Ivanna Buitrago on 07-14-2023 Hematocrit (Bld) [Volume fraction] 43.9 % 37-47 [facility] Immature granulocytes/100 WB C Auto (Bld)Ordered By: Ivanna Buitrago on 07-14-2023 Immature granulocytes/100 WBC (Bld) 0.300 % 0.0-0.9 [facility] Comment on above: IG% - Immature Granu locytes (promyelocytes, myelocytes and metamyelocytes) > 1% indicates that a LEFT SHIFT is Present. Iron measurement (mass/mass) Ordered By: Ivanna Buitrago on 07-14-2023 Iron (Unsp spec) [Mass/Mass] 64 ug/dL 50-170 [facility] Comment on above: Slight Hemolysis, Re sult may be falsely increased. Laboratory - Chemistry and C hemistry - challengeOrdered By: Ivanna Buitrago on 07-14-2023 Albumin/Globulin [Mass ratio] 0.9 {ratio} 0.9-2.4 [facility] ALP [Catalytic activity/Vol] 88 U/L 45-117 [facility] ALT [Catalytic activity/Vol] 20 U/L 13-56 [facility] Cholesterol in HDL [Mass/Vol] 27 mg/dL >40 [facility] Comment on above: The drugs N-Acetylcy steine and Metamizole may falsely depress this assay. Reference Range HDL <40 mg/dL Low HDL Cholesterol HDL >or= 60 mg/dL High HDL Cholesterol CO2 [Moles/Vol] 21.0 mmol/L 21.0-32.0 [facility] Cobalamin (Vitamin B12) [Mass/Vol] 294 pg/mL 211-911 [facility] Ferritin [Mass/Vol] 27 ng/mL 8-252 [facility] Globulin (S) [Mass/Vol] 3.9 g/dL 2.2-4.2 [facility] Urea nitrogen/Creatinine [Mass ratio] 16.4 mg/mg 10-20 [facility] - CoagulationOrde red By: Ivanna Buitrago on 07-14-2023 INR Coag (Bld) [Relative time] 0.9 {INR} [facility] PT Coag (PPP) [Time] 12.0 s 11.7-14.9 [facility] - Hematology and Cell countsOrdered By: Ivanna Buitrago on 07-14-2023 MCH (RBC) [Entitic mass] 27.4 pg 27.0-32.0 [facility] MCHC (RBC) [Mass/Vol] 35.1 g/dL 32-36 [facility] Nucleated RBC/100 WBC (Bld) [Ratio] 0 % 0-5 [facility] Platelet mean volume (Bld) [Entitic vol] 12.8 fL 6.2-12.0 [facility] Platelets (Bld) [#/Vol] 209 10*3/uL 150-450 [facility] No Panel InformationOrdered By: Ivanna Buitrago on 07-14-2023 Estimated GFR (MDRD) Amer 89 mL/min >60 [facility] Comment on above: GFR Calc Estimated GFR (MDRD) Non-Af Amer 74 mL/min >60 [facility] Comment on above: Non- GFR Calc LDL Cholesterol TNP [facility] Comment on above: Test not performed Total Iron Binding Capacity 352 ug/dL 250-450 [facility] VLDL Cholesterol TNP [facility] Comment on above: Test not performed RBC Auto (Bld) [#/Vol]Ordere d By: Ivanna Buitrago on 07-14-2023 RBC (Bld) [#/Vol] 5.63 10*6/uL 4.2-5.4 [facility] Serum or plasma calcium branden urement (mass/volume)Ordered By: Ivanna Buitrago on 07-14-2023 Calcium [Mass/Vol] 8.8 mg/dL 8.5-10.1 [facility] Serum or plasma creatinine m easurement (mass/volume)Ordered By: Ivanna Buitrago on 07-14-2023 Creatinine [Mass/Vol] 0.92 mg/dL 0.55-1.02 [facility] Comment on above: The validity of the calculated GFR & GFRAA in patients over 70 years has not been determined. Clinical correlation is essential. Serum or plasma thyroid stim ulating hormone (TSH) measurement (units/volume)Ordered By: Ivanna Buitrago on 07-14-2023 TSH Qn 5.46 uIU/mL 0.358-3.74 [facility] Serum or plasma urea nitroge n measurement (mass/volume)Ordered By: Ivanna Buitrago on 07-14-2023 Urea nitrogen [Mass/Vol] 15 mg/dL 7-18 [facility] Thin prep Papanicolaou smear with manual screeningOrdered By: Ivanna Buitrago on 07-14-2023 Thin prep Papanicolaou smear with manual screening 3.6 g/dL 3.2-5.0 [facility] Thin prep Papanicolaou smear with manual screening 11 U/L 15-37 [facility] Comment on above: Slight Hemolysis, Re sult may be falsely increased. Thin prep Papanicolaou smear with manual screening 7 5-15 [facility] Thin prep Papanicolaou smear with manual screening 0.93 ng/dL 0.76-1.46 [facility] Basophil percentageOrdered B y: Marquez Benz on 06-04-2023 Chloride [Moles/Vol] 99 mmol/L 98-107 [facility] Glucose [Mass/Vol] 423 mg/dL 74-106 [facility] Comment on above: Glucose result great er than or equal to 200 mg/dLsuggests DIABETES MELLITUS per A.D.A. criteria. Potassium [Moles/Vol] 4.3 mmol/L 3.5-5.1 [facility] Sodium [Moles/Vol] 133 mmol/L 136-145 [facility] Laboratory - Chemistry and C hemistry - challengeOrdered By: Marquez Benz on 06-04-2023 CO2 [Moles/Vol] 29.0 mmol/L 21.0-32.0 [facility] Urea nitrogen/Creatinine [Mass ratio] 15.6 mg/mg 10-20 [facility] - CoagulationOrde red By: Marquez Benz on 06-04-2023 INR Coag (Bld) [Relative time] 0.8 {INR} [facility] PT Coag (PPP) [Time] 11.5 s 11.7-14.9 [facility] No Panel InformationOrdered By: Marquez Benz on 06-04-2023 Estimated Creatinine Clearance Calc 98.81 ml/min [facility] Estimated GFR (MDRD) Amer 99 mL/min >60 [facility] Comment on above: GFR Calc Estimated GFR (MDRD) Non-Af Amer 82 mL/min >60 [facility] Comment on above: Non- GFR Calc Serum or plasma calcium branden urement (mass/volume)Ordered By: Marquez Benz on 06-04-2023 Calcium [Mass/Vol] 9.4 mg/dL 8.5-10.1 [facility] Serum or plasma creatinine m easurement (mass/volume)Ordered By: Marquez Benz on 06-04-2023 Creatinine [Mass/Vol] 0.83 mg/dL 0.55-1.02 [facility] Comment on above: The validity of the calculated GFR & GFRAA in patients over 70 years has not been determined. Clinical correlation is essential. Serum or plasma urea nitroge n measurement (mass/volume)Ordered By: Marquez Benz on 06-04-2023 Urea nitrogen [Mass/Vol] 13 mg/dL 7-18 [facility] Thin prep Papanicolaou smear with manual screeningOrdered By: Marquez Benz on 06-04-2023 Thin prep Papanicolaou smear with manual screening 5 5-15 [facility] Absolute lymphocyte countOrd ered By: Annemarie Rizzo on 05-15-2023 Lymphocytes Auto (Unsp spec) [#/Vol] 2.42 10*3/uL 0.83-4.51 [facility] Automated lymphocyte count a s percentage of total leukocytesOrdered By: Annemarie Rizzo on 05-15-2023 Lymphocytes/100 WBC Auto (Unsp spec) 36.3 % 19-41 [facility] Basophil percentageOrdered B y: Annemarie Rizzo on 05-15-2023 Basophils/100 WBC (Bld) 0.4 % 0-1 [facility] Bilirubin [Mass/Vol] 0.80 mg/dL 0.20-1.00 [facility] Comment on above: For patients on eltr ombopag therapy, use of Dimension [place] TBIL is not recommended. Chloride [Moles/Vol] 111 mmol/L 98-107 [facility] Eosinophils/100 WBC (Bld) 2.5 % 0-5 [facility] Glucose [Mass/Vol] 311 mg/dL 74-106 [facility] Comment on above: Glucose result great er than or equal to 200 mg/dLsuggests DIABETES MELLITUS per A.D.A. criteria. Hemoglobin (Bld) [Mass/Vol] 11.6 g/dL 12.0-15.0 [facility] Monocytes/100 WBC (Bld) 5.7 % 0-10 [facility] Neutrophils (Bld) [#/Vol] 3.7 10*3/uL 2.0-7.7 [facility] Neutrophils/100 WBC (Bld) 55.0 % 47-70 [facility] Potassium [Moles/Vol] 4.2 mmol/L 3.5-5.1 [facility] Protein [Mass/Vol] 6.0 g/dL 6.4-8.2 [facility] Sodium [Moles/Vol] 139 mmol/L 136-145 [facility] WBC (Bld) [#/Vol] 6.7 10*3/uL 4.4-11.0 [facility] Determination of erythrocyte mean corpuscular volume (MCV)Ordered By: Annemarie Rizzo on 05-15-2023 MCV (RBC) [Entitic vol] 78.2 fL 81-99 [facility] Erythrocyte distribution wid th ratioOrdered By: Annemarie Rizzo on 05-15-2023 Erythrocyte distribution width (RBC) [Ratio] 13.1 % 11.6-14.6 [facility] Erythrocyte distribution wid th standard deviationOrdered By: Annemarie Rizzo on 05-15-2023 Erythrocyte distribution width (RBC) [Entitic vol] 36.8 fL 35.1-43.9 [facility] Hematocrit Auto (Bld) [Volum e fraction]Ordered By: Annemarie Rizzo on 05-15-2023 Hematocrit (Bld) [Volume fraction] 33.3 % 37-47 [facility] Immature granulocytes/100 WB C Auto (Bld)Ordered By: Annemarie Rizzo on 05-15-2023 Immature granulocytes/100 WBC (Bld) 0.100 % 0.0-0.9 [facility] Comment on above: IG% - Immature Granu locytes (promyelocytes, myelocytes and metamyelocytes) > 1% indicates that a LEFT SHIFT is Present. Laboratory - Chemistry and C hemistry - challengeOrdered By: Annemarie Rizzo on 05-15-2023 Albumin/Globulin [Mass ratio] 1.0 {ratio} 0.9-2.4 [facility] ALP [Catalytic activity/Vol] 64 U/L 45-117 [facility] ALT [Catalytic activity/Vol] 18 U/L 13-56 [facility] CO2 [Moles/Vol] 22.0 mmol/L 21.0-32.0 [facility] Globulin (S) [Mass/Vol] 3.0 g/dL 2.2-4.2 [facility] Urea nitrogen/Creatinine [Mass ratio] 18.2 mg/mg 10-20 [facility] - CoagulationOrde red By: Annemarie Rizzo on 05-15-2023 INR Coag (Bld) [Relative time] 1.9 {INR} [facility] PT Coag (PPP) [Time] 21.8 s 11.7-14.9 [facility] - Hematology and Cell countsOrdered By: Annemarie Rizzo on 05-15-2023 MCH (RBC) [Entitic mass] 27.2 pg 27.0-32.0 [facility] MCHC (RBC) [Mass/Vol] 34.8 g/dL 32-36 [facility] Comment on above: Delta: 37.3 on 05/14-1508 Nucleated RBC/100 WBC (Bld) [Ratio] 0 % 0-5 [facility] Platelet mean volume (Bld) [Entitic vol] 12.2 fL 6.2-12.0 [facility] Platelets (Bld) [#/Vol] 156 10*3/uL 150-450 [facility] No Panel InformationOrdered By: Annemarie Rizzo on 05-15-2023 Estimated Creatinine Clearance Calc 132.88 ml/min [facility] Estimated GFR (MDRD) Amer 143 mL/min >60 [facility] Comment on above: GFR Calc Estimated GFR (MDRD) Non-Af Amer 119 mL/min >60 [facility] Comment on above: Non- GFR Calc RBC Auto (Bld) [#/Vol]Ordere d By: Annemarie Rizzo on 05-15-2023 RBC (Bld) [#/Vol] 4.26 10*6/uL 4.2-5.4 [facility] Serum or plasma calcium branden urement (mass/volume)Ordered By: Annemarie Rizzo on 05-15-2023 Calcium [Mass/Vol] 8.1 mg/dL 8.5-10.1 [facility] Serum or plasma creatinine m easurement (mass/volume)Ordered By: Annemarie Rizzo on 05-15-2023 Creatinine [Mass/Vol] 0.61 mg/dL 0.55-1.02 [facility] Comment on above: The validity of the calculated GFR & GFRAA in patients over 70 years has not been determined. Clinical correlation is essential. Serum or plasma urea nitroge n measurement (mass/volume)Ordered By: Annemarie Rizzo on 05-15-2023 Urea nitrogen [Mass/Vol] 11 mg/dL 7-18 [facility] Thin prep Papanicolaou smear with manual screeningOrdered By: Jesús Sales on 05-15-2023 Thin prep Papanicolaou smear with manual screening 330 mg/dL 74-106 [facility] Comment on above: MANAGEMENT OF PATIEN T CARE PER NURSING PROTOCOL Thin prep Papanicolaou smear with manual screeningOrdered By: Annemarie Rizzo on 05-15-2023 Thin prep Papanicolaou smear with manual screening 3.0 g/dL 3.2-5.0 [facility] Thin prep Papanicolaou smear with manual screening 14 U/L 15-37 [facility] Thin prep Papanicolaou smear with manual screening 6 5-15 [facility] Absolute lymphocyte countOrd ered By: Jared Condon on 05-14-2023 Lymphocytes Auto (Unsp spec) [#/Vol] 1.84 10*3/uL 0.83-4.51 [facility] Automated lymphocyte count a s percentage of total leukocytesOrdered By: Jared Condon on 05-14-2023 Lymphocytes/100 WBC Auto (Unsp spec) 21.4 % 19-41 [facility] Basophil percentageOrdered B y: Jared Condon on 05-14-2023 Basophils/100 WBC (Bld) 0.6 % 0-1 [facility] Chloride [Moles/Vol] 99 mmol/L 98-107 [facility] Comment on above: Critical Result(s) C alled at: 15:52:43 05/14/2023 by: kaleigh flowers to nathen mendez ed Results read back by same. Eosinophils/100 WBC (Bld) 0.8 % 0-5 [facility] Glucose [Mass/Vol] 729 mg/dL 74-106 [facility] Comment on above: Moderate Lipemia, Re sult may be falsely increased.Glucose result greater than or equal to 200 mg/dLsuggests DIABETES MELLITUS per A.D.A. criteria. Hemoglobin (Bld) [Mass/Vol] 14.9 g/dL 12.0-15.0 [facility] Monocytes/100 WBC (Bld) 4.4 % 0-10 [facility] Neutrophils (Bld) [#/Vol] 6.2 10*3/uL 2.0-7.7 [facility] Neutrophils/100 WBC (Bld) 72.5 % 47-70 [facility] Potassium [Moles/Vol] 5.0 mmol/L 3.5-5.1 [facility] Comment on above: Moderate Hemolysis, Result may be falsely increased. Sodium [Moles/Vol] 135 mmol/L 136-145 [facility] WBC (Bld) [#/Vol] 8.6 10*3/uL 4.4-11.0 [facility] Determination of erythrocyte mean corpuscular volume (MCV)Ordered By: Jared Condon on 05-14-2023 MCV (RBC) [Entitic vol] 76.6 fL 81-99 [facility] Erythrocyte distribution wid th ratioOrdered By: Jared Condon on 05-14-2023 Erythrocyte distribution width (RBC) [Ratio] 12.8 % 11.6-14.6 [facility] Erythrocyte distribution wid th standard deviationOrdered By: Jared Condon on 05-14-2023 Erythrocyte distribution width (RBC) [Entitic vol] 35.1 fL 35.1-43.9 [facility] Hematocrit Auto (Bld) [Volum e fraction]Ordered By: Jared Condon on 05-14-2023 Hematocrit (Bld) [Volume fraction] 40.0 % 37-47 [facility] Immature granulocytes/100 WB C Auto (Bld)Ordered By: Jared Condon on 05-14-2023 Immature granulocytes/100 WBC (Bld) 0.300 % 0.0-0.9 [facility] Comment on above: IG% - Immature Granu locytes (promyelocytes, myelocytes and metamyelocytes) > 1% indicates that a LEFT SHIFT is Present. Laboratory - Chemistry and C hemistry - challengeOrdered By: Annemarie Rizzo on 05-14-2023 Magnesium [Mass/Vol] 1.6 mg/dL 1.6-2.6 [facility] Comment on above: Moderate Hemolysis, Result may be falsely increased. Laboratory - Chemistry and C hemistry - challengeOrdered By: Jared Condon on 05-14-2023 CO2 [Moles/Vol] 20.0 mmol/L 21.0-32.0 [facility] Urea nitrogen/Creatinine [Mass ratio] 15.8 mg/mg 10-20 [facility] Laboratory - CoagulationOrde red By: Jared Condon on 05-14-2023 INR Coag (Bld) [Relative time] 0.9 {INR} [facility] PT Coag (PPP) [Time] 11.6 s 11.7-14.9 [facility] Laboratory - Hematology and Cell countsOrdered By: Jared Condon on 05-14-2023 MCH (RBC) [Entitic mass] 28.5 pg 27.0-32.0 [facility] MCHC (RBC) [Mass/Vol] 37.3 g/dL 32-36 [facility] Nucleated RBC/100 WBC (Bld) [Ratio] 0 % 0-5 [facility] Platelet mean volume (Bld) [Entitic vol] 11.7 fL 6.2-12.0 [facility] Platelets (Bld) [#/Vol] 249 10*3/uL 150-450 [facility] No Panel InformationOrdered By: Jared Condon on 05-14-2023 Estimated Creatinine Clearance Calc 67.91 ml/min [facility] Estimated GFR (MDRD) Amer 65 mL/min >60 [facility] Comment on above: GFR Calc Estimated GFR (MDRD) Non-Af Amer 54 mL/min >60 [facility] Comment on above: Non- GFR Calc RBC Auto (Bld) [#/Vol]Ordere d By: Jared Condon on 05-14-2023 RBC (Bld) [#/Vol] 5.22 10*6/uL 4.2-5.4 [facility] Serum or plasma acetone branden urement (mass/volume)Ordered By: Jared Condon on 05-14-2023 Acetone [Mass/Vol] SMALL NEG [facility] Serum or plasma calcium branden urement (mass/volume)Ordered By: Jared Condon on 05-14-2023 Calcium [Mass/Vol] 8.9 mg/dL 8.5-10.1 [facility] Comment on above: Moderate Lipemia, Re sult may be falsely decreased. Serum or plasma creatinine m easurement (mass/volume)Ordered By: Jared Condon on 05-14-2023 Creatinine [Mass/Vol] 1.20 mg/dL 0.55-1.02 [facility] Comment on above: The validity of the calculated GFR & GFRAA in patients over 70 years has not been determined. Clinical correlation is essential. Serum or plasma urea nitroge n measurement (mass/volume)Ordered By: Jared Condon on 05-14-2023 Urea nitrogen [Mass/Vol] 19 mg/dL 7-18 [facility] Thin prep Papanicolaou smear with manual screeningOrdered By: Annemarie Rizzo on 05-14-2023 Thin prep Papanicolaou smear with manual screening > 500 mg/dL 74-106 [facility] Comment on above: Dr Zeenat VÁSQUEZ OF PATIENT CARE PER NURSING PROTOCOL Thin prep Papanicolaou smear with manual screeningOrdered By: Jared Condon on 05-14-2023 Thin prep Papanicolaou smear with manual screening 16 5-15 [facility] Whole blood hemoglobin A1c/t otal hemoglobin ratio (mass fraction)Ordered By: Annemarie Rizzo on 05-14-2023 HbA1c (Bld) [Mass fraction] 8.7 % 3.8-5.6 [facility] Comment on above: Normal < 5.7 % Predi abetic 5.7 - 6.4 % Diabetic >or= 6.5 % Please note range changes. Basophil percentageOrdered B y: Delfina Holloway on 04-23-2023 Chloride [Moles/Vol] 105 mmol/L 98-107 [facility] Glucose [Mass/Vol] 343 mg/dL -106 [facility] Comment on above: Glucose result great er than or equal to 200 mg/dLsuggests DIABETES MELLITUS per A.D.A. criteria. Potassium [Moles/Vol] 4.1 mmol/L 3.5-5.1 [facility] Sodium [Moles/Vol] 139 mmol/L 136-145 [facility] International normalized rat io (INR) calculationOrdered By: Delfina Holloway on 04-23-2023 INR Coag (PPP) [Relative time] 0.9 {INR} [facility] Laboratory - Chemistry and C hemistry - challengeOrdered By: Delfina Holloway on 04-23-2023 CO2 [Moles/Vol] 29.0 mmol/L 21.0-32.0 [facility] Urea nitrogen/Creatinine [Mass ratio] 20.9 mg/mg 10-20 [facility] Laboratory - CoagulationOrde red By: Delfina Holloway on 04-23-2023 PT Coag (PPP) [Time] 11.7 s 11.7-14.9 [facility] No Panel InformationOrdered By: Delfina Holloway on 04-23-2023 Estimated Creatinine Clearance Calc 107.78 ml/min [facility] Estimated GFR (MDRD) Amer 110 mL/min >60 [facility] Comment on above: GFR Calc Estimated GFR (MDRD) Non-Af Amer 91 mL/min >60 [facility] Comment on above: Non- GFR Calc Serum or plasma calcium branden urement (mass/volume)Ordered By: Delfina Holloway on 04-23-2023 Calcium [Mass/Vol] 9.5 mg/dL 8.5-10.1 [facility] Serum or plasma creatinine m easurement (mass/volume)Ordered By: Delfina Holloway on 04-23-2023 Creatinine [Mass/Vol] 0.76 mg/dL 0.55-1.02 [facility] Comment on above: The validity of the calculated GFR & GFRAA in patients over 70 years has not been determined. Clinical correlation is essential. Serum or plasma urea nitroge n measurement (mass/volume)Ordered By: Delfina Holloway on 04-23-2023 Urea nitrogen [Mass/Vol] 16 mg/dL 7-18 [facility] Thin prep Papanicolaou smear with manual screeningOrdered By: Delfina Holloway on 04-23-2023 Thin prep Papanicolaou smear with manual screening 5 5-15 [facility] Basophil percentageOrdered B y: Marcelo Stone on 03-15-2023 Chloride [Moles/Vol] 109 mmol/L 98-107 [facility] Glucose [Mass/Vol] 113 mg/dL 74-106 [facility] Comment on above: Fasting Glucose resu lt from 100 to 125 mg/dL suggests IMPAIRED HOMEOSTASIS per A.D.A. criteria. Potassium [Moles/Vol] 3.3 mmol/L 3.5-5.1 [facility] Sodium [Moles/Vol] 136 mmol/L 136-145 [facility] Glucose Glucometer (BldC) [M ass/Vol]Ordered By: Marcelo Stone on 03-15-2023 Glucose [Mass/Vol] 154 mg/dL 74-106 [facility] Comment on above: MANAGEMENT OF PATIEN T CARE PER NURSING PROTOCOL INR in Blood by Coagulation assayOrdered By: Wai Roberts on 03-15-2023 INR Coag (Bld) [Relative time] 1.3 {INR} [facility] Laboratory - Chemistry and C hemistry - challengeOrdered By: Marcelo Stone on 03-15-2023 CO2 [Moles/Vol] 20.0 mmol/L 21.0-32.0 [facility] Urea nitrogen/Creatinine [Mass ratio] 16.2 mg/mg 10-20 [facility] Laboratory - CoagulationOrde red By: Wai Roberts on 03-15-2023 PT Coag (PPP) [Time] 16.4 s 11.7-14.9 [facility] No Panel InformationOrdered By: Marcelo Stone on 03-15-2023 Estimated Creatinine Clearance Calc 40.67 ml/min [facility] Estimated GFR (MDRD) Amer 41 mL/min >60 [facility] Comment on above: GFR Calc Estimated GFR (MDRD) Non-Af Amer 34 mL/min >60 [facility] Comment on above: Non- GFR Calc Serum or plasma calcium branden urement (mass/volume)Ordered By: Marcelo Stone on 03-15-2023 Calcium [Mass/Vol] 8.8 mg/dL 8.5-10.1 [facility] Serum or plasma creatinine m easurement (mass/volume)Ordered By: Marcelo Stone on 03-15-2023 Creatinine [Mass/Vol] 1.79 mg/dL 0.55-1.02 [facility] Comment on above: The validity of the calculated GFR & GFRAA in patients over 70 years has not been determined. Clinical correlation is essential. Serum or plasma urea nitroge n measurement (mass/volume)Ordered By: Marcelo Stone on 03-15-2023 Urea nitrogen [Mass/Vol] 29 mg/dL 7-18 [facility] Thin prep Papanicolaou smear with manual screeningOrdered By: Marcelo Stone on 03-15-2023 Thin prep Papanicolaou smear with manual screening 7 5-15 [facility] Absolute lymphocyte countOrd ered By: Wai Roberts on 03-13-2023 Lymphocytes Auto (Unsp spec) [#/Vol] 2.05 10*3/uL 0.83-4.51 [facility] Basophil percentageOrdered B y: Wai Roberts on 03-13-2023 Basophils/100 WBC (Bld) 0.3 % 0-1 [facility] Eosinophils/100 WBC (Bld) 0.3 % 0-5 [facility] Neutrophils (Bld) [#/Vol] 5.2 10*3/uL 2.0-7.7 [facility] Neutrophils/100 WBC (Bld) 66.4 % 47-70 [facility] WBC (Bld) [#/Vol] 7.8 10*3/uL 4.4-11.0 [facility] Blood erythrocytes count (nu mber/volume)Ordered By: Wai Roberts on 03-13-2023 RBC (Bld) [#/Vol] 5.66 10*6/uL 4.2-5.4 [facility] Blood hemoglobin measurement (mass/volume)Ordered By: Wai Roberts on 03-13-2023 Hemoglobin (Bld) [Mass/Vol] 14.2 g/dL 12.0-15.0 [facility] Blood lymphocytes/100 leukoc ytesOrdered By: Wai Roberts on 03-13-2023 Lymphocytes/100 WBC (Bld) 26.2 % 19-41 [facility] Blood monocytes/100 leukocyt esOrdered By: Wai Roberts on 03-13-2023 Monocytes/100 WBC (Bld) 6.5 % 0-10 [facility] Blood platelet mean volumeOr dered By: Wai Roberts on 03-13-2023 Platelet mean volume (Bld) [Entitic vol] 10.7 fL 6.2-12.0 [facility] Determination of erythrocyte mean corpuscular volume (MCV)Ordered By: Wai Roberts on 03-13-2023 MCV (RBC) [Entitic vol] 72.8 fL 81-99 [facility] Hematocrit Auto (Bld) [Volum e fraction]Ordered By: Wai Roberts on 03-13-2023 Hematocrit (Bld) [Volume fraction] 41.2 % 37-47 [facility] Laboratory - Hematology and Cell countsOrdered By: Wai Roberts on 03-13-2023 Erythrocyte distribution width (RBC) [Entitic vol] 48.2 fL 35.1-43.9 [facility] Erythrocyte distribution width (RBC) [Ratio] 19.0 % 11.6-14.6 [facility] Immature granulocytes/100 WBC (Bld) 0.300 % 0.0-0.9 [facility] Comment on above: IG% - Immature Granu locytes (promyelocytes, myelocytes and metamyelocytes) > 1% indicates that a LEFT SHIFT is Present. MCH (RBC) [Entitic mass] 25.1 pg 27.0-32.0 [facility] Nucleated RBC/100 WBC (Bld) [Ratio] 0 % 0-5 [facility] MCHC Auto (RBC) [Mass/Vol]Or dered By: Wai Roberts on 03-13-2023 MCHC (RBC) [Mass/Vol] 34.5 g/dL 32-36 [facility] Platelets bldOrdered By: Uli Roberts on 03-13-2023 Platelets (Bld) [#/Vol] 237 10*3/uL 150-450 [facility] Serum or plasma acetone branden urement (mass/volume)Ordered By: Alli Hernandes on 03-13-2023 Acetone [Mass/Vol] SMALL NEG [facility] Absolute lymphocyte countOrd ered By: Sergio Vogel on 03-12-2023 Lymphocytes Auto (Unsp spec) [#/Vol] 1.72 10*3/uL 0.83-4.51 [facility] Basophil percentageOrdered B y: Sergio Vogel on 03-12-2023 Basophils/100 WBC (Bld) 0.2 % 0-1 [facility] Chloride [Moles/Vol] 88 mmol/L 98-107 [facility] Eosinophils/100 WBC (Bld) 0.3 % 0-5 [facility] Glucose [Mass/Vol] 479 mg/dL 74-106 [facility] Comment on above: Critical Result(s) C alled at: 15:18:33 03/12/2023 by: Selina Keller to Imani. Results read back by same.Glucose result greater than or equal to 200 mg/dLsuggests DIABETES MELLITUS per A.D.A. criteria. Lactate [Moles/Vol] 0.8 mmol/L 0.4-2.0 [facility] Neutrophils (Bld) [#/Vol] 8.8 10*3/uL 2.0-7.7 [facility] Neutrophils/100 WBC (Bld) 78.9 % 47-70 [facility] Potassium [Moles/Vol] 3.8 mmol/L 3.5-5.1 [facility] Comment on above: Slight Hemolysis, Re sult may be falsely increased. Sodium [Moles/Vol] 124 mmol/L 136-145 [facility] WBC (Bld) [#/Vol] 11.1 10*3/uL 4.4-11.0 [facility] Basophil percentage 0 SEEN /hpf 0-5 [facility] Bilirubin Test strip Ql (U)O rdered By: Sergio Vogel on 03-12-2023 Bilirubin Ql (U) Negative Negative [facility] Blood erythrocytes count (nu mber/volume)Ordered By: Sergio Vogel on 03-12-2023 RBC (Bld) [#/Vol] 7.25 10*6/uL 4.2-5.4 [facility] Blood hemoglobin measurement (mass/volume)Ordered By: Sergio Vogel on 03-12-2023 Hemoglobin (Bld) [Mass/Vol] 18.0 g/dL 12.0-15.0 [facility] Blood lymphocytes/100 leukoc ytesOrdered By: Sergio Vogel on 03-12-2023 Lymphocytes/100 WBC (Bld) 15.5 % 19-41 [facility] Blood monocytes/100 leukocyt esOrdered By: Sergio Vogel on 03-12-2023 Monocytes/100 WBC (Bld) 4.7 % 0-10 [facility] Blood platelet mean volumeOr dered By: Sergio Vogel on 03-12-2023 Platelet mean volume (Bld) [Entitic vol] 10.7 fL 6.2-12.0 [facility] Determination of erythrocyte mean corpuscular volume (MCV)Ordered By: Sergio Vogel on 03-12-2023 MCV (RBC) [Entitic vol] 73.7 fL 81-99 [facility] Glucose Glucometer (BldC) [M ass/Vol]Ordered By: Wai Roberts on 03-12-2023 Glucose [Mass/Vol] 327 mg/dL 74-106 [facility] Comment on above: MANAGEMENT OF PATIEN T CARE PER NURSING PROTOCOL HCO3 (BldA) [Moles/Vol]Order ed By: Sergio Vogel on 03-12-2023 HCO3 (Bld) [Moles/Vol] 6 mmol/L 22- [facility] Hematocrit Auto (Bld) [Volum e fraction]Ordered By: Sergio Vogel on 03-12-2023 Hematocrit (Bld) [Volume fraction] 53.4 % 37-47 [facility] Ketones Test strip Ql (U)Ord ered By: Sergio Vogel on 03-12-2023 Ketones Ql (U) 150 mg/dl Negative [facility] Comment on above: CRITICAL VALUE *H Laboratory - Chemistry and C hemistry - challengeOrdered By: Sergio Vogel on 03-12-2023 CO2 [Moles/Vol] 6 mmol/L 23-33 [facility] CO2 [Moles/Vol] 8.0 mmol/L 21.0-32.0 [facility] Comment on above: Critical Result(s) C alled at: 15:18:33 03/12/2023 by: Selina Diallo. Results read back by same. Lipase [Catalytic activity/Vol] 64 U/L - [facility] Comment on above: Please note:LIPASE r evised reference range effective 22. New Lipase methodology. Expected to produce lower values than the previous assay method. NEW Reference Range: 13 - 75 U/L Urea nitrogen/Creatinine [Mass ratio] 27.2 mg/mg 10- [facility] Laboratory - Hematology and Cell countsOrdered By: Sergio Vogel on 03-12-2023 Erythrocyte distribution width (RBC) [Entitic vol] 47.1 fL 35.1-43.9 [facility] Erythrocyte distribution width (RBC) [Ratio] 19.3 % 11.6-14.6 [facility] Immature granulocytes/100 WBC (Bld) 0.400 % 0.0-0.9 [facility] Comment on above: IG% - Immature Granu locytes (promyelocytes, myelocytes and metamyelocytes) > 1% indicates that a LEFT SHIFT is Present. MCH (RBC) [Entitic mass] 24.8 pg 27.0-32.0 [facility] Nucleated RBC/100 WBC (Bld) [Ratio] 0 % 0-5 [facility] MCHC Auto (RBC) [Mass/Vol]Or dered By: Sergio Vogel on 03-12-2023 MCHC (RBC) [Mass/Vol] 33.7 g/dL 32-36 [facility] Mucus LM Ql (Urine sed)Order ed By: Sergio Vogel on 03-12-2023 Mucus Ql (Urine sed) 0 SEEN /hpf [facility] Nitrite Test strip Ql (U)Ord ered By: Sergio Vogel on 03-12-2023 Nitrite Ql (U) Negative Negative [facility] No Panel InformationOrdered By: Sergio Vogel on 03-12-2023 Troponin I High Sensitivity 23 pg/mL 3.0-54.0 [facility] Comment on above: Please Note: New Chrissie t Units and Gender Specific Reference Ranges. For more information see Policy Stat Procedure [place] High Sensitivity Troponin (TNIH) and attachments. Bed Mix Venous Bld PCO2 at Pat Temp 15.6 mmHg 41-51 [facility] Bld Gas Crit Called To/Read Back By Yes [facility] Blood Gas Notified Time 15:33:42 [facility] Blood Gas Notified Whom es [facility] Blood Gas Sample Site Not entered [facility] Blood Gas Specimen Type [facility] Oxygen Delivery Device Not entered [facility] Venous Blood Base Excess -23 mmol/L -1.0-3.5 [facility] Estimated Creatinine Clearance Calc 53.53 ml/min [facility] Estimated GFR (MDRD) Amer 57 mL/min >60 [facility] Comment on above: GFR Calc Estimated GFR (MDRD) Non-Af Amer 47 mL/min >60 [facility] Comment on above: Non- GFR Calc Troponin I High Sensitivity 21 pg/mL 3.0-54.0 [facility] Comment on above: Please Note: New Chrissie t Units and Gender Specific Reference Ranges. For more information see Policy Stat Procedure [place] High Sensitivity Troponin (TNIH) and attachments. PO2 venousOrdered By: Sergio saez on 03-12-2023 Oxygen (BldV) [Partial pressure] 46 mm[Hg] 25-40 [facility] Platelets bldOrdered By: Lin Vogel on 03-12-2023 Platelets (Bld) [#/Vol] 447 10*3/uL 150-450 [facility] Protein Test strip Ql (U)Ord ered By: Sergio Vogel on 03-12-2023 Protein Ql (U) 30 mg/dl Negative [facility] Review by pathologistOrdered By: Sergio Vogel on 03-12-2023 Pathologist review Abdelrahman (Unsp spec) [Interp] Reviewed [facility] Comment on above: Neutrophilic leukocy tosis.Polycythemia.Microcytosis.Clinical correlation necessary.Neo Elmore M.D. 03/14/23 Serum or plasma acetone branden urement (mass/volume)Ordered By: Sergio Vogel on 03-12-2023 Acetone [Mass/Vol] MODERATE NEG [facility] Serum or plasma calcium branden urement (mass/volume)Ordered By: Sergio Vogel on 03-12-2023 Calcium [Mass/Vol] 9.1 mg/dL 8.5-10.1 [facility] Serum or plasma creatinine m easurement (mass/volume)Ordered By: Sergio Vogel on 03-12-2023 Creatinine [Mass/Vol] 1.36 mg/dL 0.55-1.02 [facility] Comment on above: The validity of the calculated GFR & GFRAA in patients over 70 years has not been determined. Clinical correlation is essential. Serum or plasma urea nitroge n measurement (mass/volume)Ordered By: Sergio Vogel on 03-12-2023 Urea nitrogen [Mass/Vol] 37 mg/dL 7-18 [facility] Squamous epithelial cells de tection in urine sediment by light microscopyOrdered By: Sergio Vogel on 03-12-2023 Epithelial cells.squamous LM Ql (Urine sed) 0-5 SEEN /hpf 5-10 [facility] Thin prep Papanicolaou smear with manual screeningOrdered By: Sergio Vogel on 03-12-2023 Thin prep Papanicolaou smear with manual screening 28 5- [facility] Urine blood detectionOrdered By: Sergio Vogel on 03-12-2023 RBC Ql (U) 250 /ul Negative [facility] RBC Ql (U) 50-100 SEEN /hpf 0-5 [facility] Urine clarityOrdered By: Lin Vogel on 03-12-2023 Clarity (U) Sl. Cloudy Clear [facility] Urine color determinationOrd ered By: Sergio Vogel on 03-12-2023 Color (U) Yellow Yellow [facility] Urine glucose detectionOrder ed By: Sergio Vogel on 03-12-2023 Glucose Ql (U) 1000 mg/dl Normal [facility] Urine leukocyte esterase det ection by dipstickOrdered By: Sergio Vogel on 03-12-2023 Leukocyte esterase Test strip Ql (U) Negative Negative [facility] Urine pHOrdered By: Sergio blackburn on 03-12-2023 pH (U) 5.0 [pH] 5.0 - 8.0 [facility] Urine sediment bacteria coun t by microscopy (number/high power field)Ordered By: Sergio Vogel on 03-12-2023 Bacteria LM.HPF (Urine sed) [#/Area] 0 /[HPF] None Seen [facility] Urine specific gravity measu rementOrdered By: Sergio Vogel on 03-12-2023 Specific gravity (U) [Rel density] 1.025 1.002-1.030 [facility] Urobilinogen Auto test strip Ql (U)Ordered By: Sergio Vogel on 03-12-2023 Urobilinogen Ql (U) Normal mg/dl Normal [facility] Vital signsOrdered By: Sergio Vogel on 03-12-2023 Oxygen saturation in Blood 73 % 50-70 [facility] pH measurementOrdered By: Micky Vogel on 03-12-2023 pH (Unsp spec) 7.18 [pH] 7.32-7.42 [facility] Absolute lymphocyte countOrd ered By: Abad Dickson on 02-28-2023 Lymphocytes Auto (Unsp spec) [#/Vol] 2.04 10*3/uL 0.83-4.51 [facility] Basophil percentageOrdered B y: Abad Dickson on 02-28-2023 Basophil percentage TNP [facility] Comment on above: Test not performed Chloride [Moles/Vol] 99 mmol/L 98-107 [facility] Glucose [Mass/Vol] 408 mg/dL 74-106 [facility] Comment on above: Moderate Lipemia, Re sult may be falsely increased.Glucose result greater than or equal to 200 mg/dLsuggests DIABETES MELLITUS per A.D.A. criteria. Potassium [Moles/Vol] 4.1 mmol/L 3.5-5.1 [facility] Comment on above: Moderate Hemolysis, Result may be falsely increased. Sodium [Moles/Vol] 131 mmol/L 136-145 [facility] Basophil percentage 0-5 SEEN /hpf 0-5 [facility] Basophils/100 WBC (Bld) 1.0 % 0-1 [facility] Eosinophils/100 WBC (Bld) 1.2 % 0-5 [facility] Neutrophils (Bld) [#/Vol] 2.6 10*3/uL 2.0-7.7 [facility] Neutrophils/100 WBC (Bld) 51.9 % 47-70 [facility] WBC (Bld) [#/Vol] 5.1 10*3/uL 4.4-11.0 [facility] Bilirubin Test strip Ql (U)O rdered By: Abad Dickson on 02-28-2023 Bilirubin Ql (U) Negative Negative [facility] Blood erythrocytes count (nu mber/volume)Ordered By: Abad Dickson on 02-28-2023 RBC (Bld) [#/Vol] 5.96 10*6/uL 4.2-5.4 [facility] Blood hemoglobin measurement (mass/volume)Ordered By: Abad Dickson on 02-28-2023 Hemoglobin (Bld) [Mass/Vol] 15.1 g/dL 12.0-15.0 [facility] Blood lymphocytes/100 leukoc ytesOrdered By: Abad Dickson on 02-28-2023 Lymphocytes/100 WBC (Bld) 40.2 % 19-41 [facility] Blood monocytes/100 leukocyt esOrdered By: Abad Dickson on 02-28-2023 Monocytes/100 WBC (Bld) 5.3 % 0-10 [facility] Blood platelet mean volumeOr dered By: Abad Dickson on 02-28-2023 Platelet mean volume (Bld) [Entitic vol] 11.2 fL 6.2-12.0 [facility] Determination of erythrocyte mean corpuscular volume (MCV)Ordered By: Abad Dickson on 02-28-2023 MCV (RBC) [Entitic vol] 73.8 fL 81-99 [facility] Glucose Glucometer (BldC) [M ass/Vol]Ordered By: Abad Dickson on 02-28-2023 Glucose [Mass/Vol] 305 mg/dL 74-106 [facility] Comment on above: MANAGEMENT OF PATIEN T CARE PER NURSING PROTOCOL Hematocrit Auto (Bld) [Volum e fraction]Ordered By: Abad Dickson on 02-28-2023 Hematocrit (Bld) [Volume fraction] 44.0 % 37-47 [facility] INR in Blood by Coagulation assayOrdered By: Abad Dickson on 02-28-2023 INR Coag (Bld) [Relative time] 0.7 {INR} [facility] Ketones Test strip Ql (U)Ord ered By: Abad Dickson on 02-28-2023 Ketones Ql (U) 50 mg/dl Negative [facility] Laboratory - Chemistry and C hemistry - challengeOrdered By: Abad Dickson on 02-28-2023 CO2 [Moles/Vol] 23.0 mmol/L 21.0-32.0 [facility] Urea nitrogen/Creatinine [Mass ratio] 19.1 mg/mg 10-20 [facility] Laboratory - CoagulationOrde red By: Abad Dickson on 02-28-2023 PT Coag (PPP) [Time] 10.1 s 11.7-14.9 [facility] Laboratory - Hematology and Cell countsOrdered By: Abad Dickson on 02-28-2023 Erythrocyte distribution width (RBC) [Entitic vol] 45.6 fL 35.1-43.9 [facility] Erythrocyte distribution width (RBC) [Ratio] 18.2 % 11.6-14.6 [facility] Immature granulocytes/100 WBC (Bld) 0.400 % 0.0-0.9 [facility] Comment on above: IG% - Immature Granu locytes (promyelocytes, myelocytes and metamyelocytes) > 1% indicates that a LEFT SHIFT is Present. MCH (RBC) [Entitic mass] 25.3 pg 27.0-32.0 [facility] Nucleated RBC/100 WBC (Bld) [Ratio] 0 % 0-5 [facility] MCHC Auto (RBC) [Mass/Vol]Or dered By: Abad Dickson on 02-28-2023 MCHC (RBC) [Mass/Vol] 34.3 g/dL 32-36 [facility] Mucus LM Ql (Urine sed)Order ed By: Abad Dickson on 02-28-2023 Mucus Ql (Urine sed) 0 SEEN /hpf [facility] Nitrite Test strip Ql (U)Ord ered By: Abad Dicskon on 02-28-2023 Nitrite Ql (U) Negative Negative [facility] No Panel InformationOrdered By: Abad Dickson on 02-28-2023 Estimated Creatinine Clearance Calc 140.01 ml/min [facility] Estimated GFR (MDRD) Amer 170 mL/min >60 [facility] Comment on above: GFR Calc Estimated GFR (MDRD) Non-Af Amer 140 mL/min >60 [facility] Comment on above: Non- GFR Calc Platelets bldOrdered By: Angelina Dickson on 02-28-2023 Platelets (Bld) [#/Vol] 183 10*3/uL 150-450 [facility] Protein Test strip Ql (U)Ord ered By: Abad Dickson on 02-28-2023 Protein Ql (U) 30 mg/dl Negative [facility] Serum or plasma acetone branden urement (mass/volume)Ordered By: Abad Dickson on 02-28-2023 Acetone [Mass/Vol] SMALL NEG [facility] Serum or plasma calcium branden urement (mass/volume)Ordered By: Abad Dickson on 02-28-2023 Calcium [Mass/Vol] 7.6 mg/dL 8.5-10.1 [facility] Comment on above: Moderate Lipemia, Re sult may be falsely decreased. Serum or plasma creatinine m easurement (mass/volume)Ordered By: Abad Dickson on 02-28-2023 Creatinine [Mass/Vol] 0.52 mg/dL 0.55-1.02 [facility] Comment on above: The validity of the calculated GFR & GFRAA in patients over 70 years has not been determined. Clinical correlation is essential. Serum or plasma urea nitroge n measurement (mass/volume)Ordered By: Abad Dickson on 02-28-2023 Urea nitrogen [Mass/Vol] 10 mg/dL 7-18 [facility] Squamous epithelial cells de tection in urine sediment by light microscopyOrdered By: Abad Dickson on 02-28-2023 Epithelial cells.squamous LM Ql (Urine sed) 0-5 SEEN /hpf 5-10 [facility] Thin prep Papanicolaou smear with manual screeningOrdered By: Abad Dickson on 02-28-2023 Thin prep Papanicolaou smear with manual screening 9 5-15 [facility] Urine blood detectionOrdered By: Abad Dickson on 02-28-2023 RBC Ql (U) Negative Negative [facility] RBC Ql (U) 0 SEEN /hpf 0-5 [facility] Urine clarityOrdered By: Angelina Dickson on 02-28-2023 Clarity (U) Clear Clear [facility] Urine color determinationOrd ered By: Abad Dickson on 02-28-2023 Color (U) Straw Yellow [facility] Urine glucose detectionOrder ed By: Abad Dickson on 02-28-2023 Glucose Ql (U) 1000 mg/dl Normal [facility] Urine leukocyte esterase det ection by dipstickOrdered By: Abad Dickson on 02-28-2023 Leukocyte esterase Test strip Ql (U) Negative Negative [facility] Urine pHOrdered By: Abad lewis on 02-28-2023 pH (U) 6.5 [pH] 5.0 - 8.0 [facility] Urine sediment bacteria coun t by microscopy (number/high power field)Ordered By: Abad Dickson on 02-28-2023 Bacteria LM.HPF (Urine sed) [#/Area] 0 /[HPF] None Seen [facility] Urine specific gravity measu rementOrdered By: Abad Dickson on 02-28-2023 Specific gravity (U) [Rel density] 1.010 1.002-1.030 [facility] Urobilinogen Auto test strip Ql (U)Ordered By: Abad Dickson on 02-28-2023 Urobilinogen Ql (U) Normal mg/dl Normal [facility] Absolute lymphocyte countOrd ered By: Babar Ribera on 02-09-2023 Lymphocytes Auto (Unsp spec) [#/Vol] 1.65 10*3/uL 0.83-4.51 [facility] Basophil percentageOrdered B y: Babar Ribera on 02-09-2023 Chloride [Moles/Vol] 96 mmol/L 98-107 [facility] Glucose [Mass/Vol] 415 mg/dL 74-106 [facility] Comment on above: Glucose result great er than or equal to 200 mg/dLsuggests DIABETES MELLITUS per A.D.A. criteria. Potassium [Moles/Vol] 5.2 mmol/L 3.5-5.1 [facility] Comment on above: Moderate Hemolysis, Result may be falsely increased. Sodium [Moles/Vol] 130 mmol/L 136-145 [facility] Basophils/100 WBC (Bld) 0.7 % 0-1 [facility] Eosinophils/100 WBC (Bld) 1.0 % 0-5 [facility] Neutrophils (Bld) [#/Vol] 4.9 10*3/uL 2.0-7.7 [facility] Neutrophils/100 WBC (Bld) 69.4 % 47-70 [facility] WBC (Bld) [#/Vol] 7.0 10*3/uL 4.4-11.0 [facility] Blood erythrocytes count (nu mber/volume)Ordered By: Babar Ribera on 02-09-2023 RBC (Bld) [#/Vol] 6.23 10*6/uL 4.2-5.4 [facility] Blood hemoglobin measurement (mass/volume)Ordered By: Babar Ribera on 02-09-2023 Hemoglobin (Bld) [Mass/Vol] 15.9 g/dL 12.0-15.0 [facility] Blood lymphocytes/100 leukoc ytesOrdered By: Babar Ribera on 02-09-2023 Lymphocytes/100 WBC (Bld) 23.6 % 19-41 [facility] Blood manual differential co mment interpretation (narrative result)Ordered By: Babar Ribera on 02-09-2023 Manual differential comment Abdelrahman (Bld) [Interp] SCANNED [facility] Blood monocytes/100 leukocyt esOrdered By: Babar Ribera on 02-09-2023 Monocytes/100 WBC (Bld) 5.0 % 0-10 [facility] Blood platelet mean volumeOr dered By: Babar Ribera on 02-09-2023 Platelet mean volume (Bld) [Entitic vol] TNP [facility] Comment on above: Test not performed Determination of erythrocyte mean corpuscular volume (MCV)Ordered By: Babar Ribera on 02-09-2023 MCV (RBC) [Entitic vol] 71.7 fL 81-99 [facility] Glucose Glucometer (BldC) [M ass/Vol]Ordered By: Babar Ribera on 02-09-2023 Glucose [Mass/Vol] 368 mg/dL 74-106 [facility] Comment on above: MANAGEMENT OF PATIEN T CARE PER NURSING PROTOCOL Hematocrit Auto (Bld) [Volum e fraction]Ordered By: Babar Ribera on 02-09-2023 Hematocrit (Bld) [Volume fraction] 44.7 % 37-47 [facility] INR in Blood by Coagulation assayOrdered By: Babar Ribera on 02-09-2023 INR Coag (Bld) [Relative time] 2.2 {INR} [facility] Laboratory - Chemistry and C hemistry - challengeOrdered By: Babar Ribera on 02-09-2023 CO2 [Moles/Vol] 23.0 mmol/L 21.0-32.0 [facility] Urea nitrogen/Creatinine [Mass ratio] 13.3 mg/mg 10-20 [facility] Laboratory - CoagulationOrde red By: Babar Ribera on 02-09-2023 PT Coag (PPP) [Time] 25.0 s 11.7-14.9 [facility] Laboratory - Hematology and Cell countsOrdered By: Babar Ribera on 02-09-2023 Anisocytosis Ql (Bld) 1+ [facility] Erythrocyte distribution width (RBC) [Entitic vol] 49.1 fL 35.1-43.9 [facility] Erythrocyte distribution width (RBC) [Ratio] 20.8 % 11.6-14.6 [facility] Immature granulocytes/100 WBC (Bld) 0.300 % 0.0-0.9 [facility] Comment on above: IG% - Immature Granu locytes (promyelocytes, myelocytes and metamyelocytes) > 1% indicates that a LEFT SHIFT is Present. MCH (RBC) [Entitic mass] 25.5 pg 27.0-32.0 [facility] Nucleated RBC/100 WBC (Bld) [Ratio] 0 % 0-5 [facility] MCHC Auto (RBC) [Mass/Vol]Or dered By: Babar Ribera on 02-09-2023 MCHC (RBC) [Mass/Vol] 35.6 g/dL 32-36 [facility] No Panel InformationOrdered By: Babar Ribera on 02-09-2023 Estimated Creatinine Clearance Calc 97.08 ml/min [facility] Estimated GFR (MDRD) Amer 112 mL/min >60 [facility] Comment on above: GFR Calc Estimated GFR (MDRD) Non-Af Amer 93 mL/min >60 [facility] Comment on above: Non- GFR Calc Platelets bldOrdered By: Sierra Ribera on 02-09-2023 Platelets (Bld) [#/Vol] 250 10*3/uL 150-450 [facility] Serum or plasma calcium branden urement (mass/volume)Ordered By: Babar Ribera on 02-09-2023 Calcium [Mass/Vol] 8.3 mg/dL 8.5-10.1 [facility] Serum or plasma creatinine m easurement (mass/volume)Ordered By: Babar Ribera on 02-09-2023 Creatinine [Mass/Vol] 0.75 mg/dL 0.55-1.02 [facility] Comment on above: The validity of the calculated GFR & GFRAA in patients over 70 years has not been determined. Clinical correlation is essential. Serum or plasma urea nitroge n measurement (mass/volume)Ordered By: Babar Ribera on 02-09-2023 Urea nitrogen [Mass/Vol] 10 mg/dL 7-18 [facility] Thin prep Papanicolaou smear with manual screeningOrdered By: Babar Ribera on 02-09-2023 Thin prep Papanicolaou smear with manual screening 11 15 [facility] Vital Signs Date Time Vital Sign Value Performing Clinician Facility 11-01-2024 15:21-0400 Body temperature 98.2 [degF] Dr. Autumn Whitt MD Work Phone: [facility] 11-01-2024 15:21-0400 Body weight 77.[address] Autumn Whitt MD Work Phone: [facility] 11-01-2024 15:21-0400 Diastolic blood pressure 70 mm[Hg] Dr. Autumn Whitt MD Work Phone: [facility] 11-01-2024 15:21-0400 Heart rate 78 /min Dr. Autumn Whitt MD Work Phone: [facility] 11-01-2024 15:21-0400 Respiratory rate 16 /min Dr. Autumn Whitt MD Work Phone: [facility] 11-01-2024 15:21-0400 SaO2% (BldA) [Mass fraction] 97 % Dr. Autumn Whitt MD Work Phone: [facility] 11-01-2024 15:21-0400 Systolic blood pressure 115 mm[Hg] Dr. Autumn Whitt MD Work Phone: [facility] 11-01-2024 11:12-0400 Body height 167.[address] Autumn Whitt MD Work Phone: [facility] 11-01-2024 11:12-0400 Body mass index (BMI) [Ratio] 27.4 kg/m2 Dr. Autumn Whitt MD Work Phone: [facility] 11-01-2024 11:12-0400 Body temperature 97 [degF] Dr. Autumn Whitt MD Work Phone: [facility] 11-01-2024 11:12-0400 Body weight 77.[address] Autumn Whitt MD Work Phone: [facility] 11-01-2024 11:12-0400 Diastolic blood pressure 74 mm[Hg] Dr. Autumn Whitt MD Work Phone: [facility] 11-01-2024 11:12-0400 Heart rate 79 /min Dr. Autumn Whitt MD Work Phone: [facility] 11-01-2024 11:12-0400 Respiratory rate 16 /min Dr. Autumn Whitt MD Work Phone: [facility] 11-01-2024 11:12-0400 SaO2% (BldA) [Mass fraction] 97 % Dr. Autumn Whitt MD Work Phone: [facility] 11-01-2024 11:12-0400 Systolic blood pressure 124 mm[Hg] Dr. Autumn Whitt MD Work Phone: [facility] 10-18-2024 19:43-0400 Body temperature 98.1 [degF] Vikram Szymanski DO Work Phone: [facility] 10-18-2024 19:43-0400 Diastolic blood pressure 67 mm[Hg] Vikram Szymanski DO Work Phone: [facility] 10-18-2024 19:43-0400 Heart rate 89 /min Vikram Szymanski DO Work Phone: [facility] 10-18-2024 19:43-0400 Respiratory rate 15 /min Vikram Szymanski DO Work Phone: [facility] 10-18-2024 19:43-0400 Systolic blood pressure 125 mm[Hg] Vikram Szymanski DO Work Phone: [facility] 10-18-2024 18:10-0400 SaO2% (BldA) [Mass fraction] 96 % Vikram Szymanski DO Work Phone: [facility] 10-18-2024 14:22-0400 Body height 167.6 cm Vikram Szymanski DO Work Phone: [facility] 10-18-2024 14:22-0400 Body mass index (BMI) [Ratio] 29.05 kg/m2 Vikram Szymanski DO Work Phone: [facility] 10-18-2024 14:22-0400 Body weight 81.65 kg Vikram Szymanski DO Work Phone: [facility] 08-30-2024 19:25-0400 Body temperature 97.8 [degF] Dr. Autumn Whitt MD Work Phone: [facility] 08-30-2024 19:25-0400 Diastolic blood pressure 80 mm[Hg] Dr. Autumn Whitt MD Work Phone: [facility] 08-30-2024 19:25-0400 Heart rate 74 /min Dr. Autumn Whitt MD Work Phone: [facility] 08-30-2024 19:25-0400 Respiratory rate 14 /min Dr. Autumn Whitt MD Work Phone: [facility] 08-30-2024 19:25-0400 SaO2% (BldA) [Mass fraction] 97 % Dr. Autumn Whitt MD Work Phone: [facility] 08-30-2024 19:25-0400 Systolic blood pressure 127 mm[Hg] Dr. Autumn Whitt MD Work Phone: [facility] 08-30-2024 17:38-0400 Body height 167.[address] Autumn Whitt MD Work Phone: [facility] 08-30-2024 17:38-0400 Body mass index (BMI) [Ratio] 28 kg/m2 Dr. Autumn Whitt MD Work Phone: [facility] 08-30-2024 17:38-0400 Body weight 78.[address] Autumn Whitt MD Work Phone: [facility] 08-15-2024 14:43-0400 Body height 167.[address] Autumn Whitt MD Work Phone: [facility] 08-15-2024 14:43-0400 Body mass index (BMI) [Ratio] 28.4 kg/m2 Dr. Autumn Whitt MD Work Phone: [facility] 08-15-2024 14:43-0400 Body weight 79.[address] Autumn Whitt MD Work Phone: [facility] 08-15-2024 14:43-0400 Diastolic blood pressure 75 mm[Hg] Dr. Autumn Whitt MD Work Phone: [facility] 08-15-2024 14:43-0400 Heart rate 98 /min Dr. Autumn Whitt MD Work Phone: [facility] 08-15-2024 14:43-0400 SaO2% (BldA) [Mass fraction] 92 % Dr. Autumn Whitt MD Work Phone: [facility] 08-15-2024 14:43-0400 Systolic blood pressure 128 mm[Hg] Dr. Autumn Whitt MD Work Phone: [facility] 07-15-2024 08:06-0400 Body mass index (BMI) [Ratio] 29.2 kg/m2 Dr. Autumn Whitt MD Work Phone: [facility] 07-15-2024 08:06-0400 Body temperature 97.2 [degF] Dr. Autumn Whitt MD Work Phone: [facility] 07-15-2024 08:06-0400 Body weight 82.[address] Autumn Whitt MD Work Phone: [facility] 07-15-2024 08:06-0400 Diastolic blood pressure 62 mm[Hg] Dr. Autumn Whitt MD Work Phone: [facility] 07-15-2024 08:06-0400 Heart rate 104 /min Dr. Autumn Whitt MD Work Phone: [facility] 07-15-2024 08:06-0400 Respiratory rate 18 /min Dr. Autumn Whitt MD Work Phone: [facility] 07-15-2024 08:06-0400 SaO2% (BldA) [Mass fraction] 96 % Dr. Autumn Whitt MD Work Phone: [facility] 07-15-2024 08:06-0400 Systolic blood pressure 100 mm[Hg] Dr. Autumn Whitt MD Work Phone: [facility] 07-14-2023 13:36-0400 Body height 167.64 cm [facility] Work Phone: 3(682)313-274314 [place] [address] 07-14-2023 13:36-0400 Body mass index (BMI) [Ratio] 27.6 kg/m2 [facility] Work Phone: 5(697)746-601314 [place] [address] 07-14-2023 13:36-0400 Body temperature 97.1 [degF] [facility] Work Phone: 5(135)090-750104 [place] [address] 07-14-2023 13:36-0400 Body weight 77.62 kg [facility] Work Phone: 1(988)478-946914 [place] [address] 07-14-2023 13:36-0400 Diastolic blood pressure 74 mm[Hg] [facility] Work Phone: 4(170)831-762314 [place] [address] 07-14-2023 13:36-0400 Heart rate 86 /min [facility] Work Phone: 0(681)204-713814 [place] [address] 07-14-2023 13:36-0400 Respiratory rate 16 /min [facility] Work Phone: 9(717)451-725914 [place] [address] 07-14-2023 13:36-0400 SaO2% (BldA) [Mass fraction] 97 % [facility] Work Phone: 8(648)262-361814 [place] [address] 07-14-2023 13:36-0400 Systolic blood pressure 118 mm[Hg] [facility] Work Phone: 3(031)522-252204 [place] [address] 07-13-2023 13:43-0400 Body mass index (BMI) [Ratio] 28.2 kg/m2 [facility] Work Phone: 8(534)775-673004 [place] [address] 07-13-2023 13:43-0400 Body temperature 98.4 [degF] [facility] Work Phone: 0(332)350-829504 [place] [address] 07-13-2023 13:43-0400 Body weight 79.37 kg [facility] Work Phone: 0(595)588-602904 [place] [address] 07-13-2023 13:43-0400 Diastolic blood pressure 93 mm[Hg] [facility] Work Phone: 3(310)492-084104 [place] [address] 07-13-2023 13:43-0400 Heart rate 93 /min [facility] Work Phone: 2(045)058-310904 [place] [address] 07-13-2023 13:43-0400 SaO2% (BldA) [Mass fraction] 95 % [facility] Work Phone: 0(853)793-485404 [place] [address] 07-13-2023 13:43-0400 Systolic blood pressure 146 mm[Hg] [facility] Work Phone: 6(319)392-626604 [place] [address] 07-12-2023 12:11-0400 Body temperature 98.4 [degF] No Primary Care Physician [facility] 07-12-2023 12:11-0400 Diastolic blood pressure 94 mm[Hg] No Primary Care Physician [facility] 07-12-2023 12:11-0400 Heart rate 108 /min No Primary Care Physician [facility] 07-12-2023 12:11-0400 Respiratory rate 16 /min No Primary Care Physician [facility] 07-12-2023 12:11-0400 SaO2% (BldA) [Mass fraction] 96 % No Primary Care Physician [facility] 07-12-2023 12:11-0400 Systolic blood pressure 156 mm[Hg] No Primary Care Physician [facility] 07-12-2023 11:29-0400 Body height 167.64 cm No Primary Care Physician [facility] 07-12-2023 11:29-0400 Body mass index (BMI) [Ratio] 27.8 kg/m2 No Primary Care Physician [facility] 07-12-2023 11:29-0400 Body weight 78.24 kg No Primary Care Physician [facility] 06-04-2023 13:50-0500 Body temperature 98 [degF] No Primary Care Physician [facility] 06-04-2023 13:50-0500 Diastolic blood pressure 83 mm[Hg] No Primary Care Physician [facility] 06-04-2023 13:50-0500 Heart rate 86 /min No Primary Care Physician [facility] 06-04-2023 13:50-0500 Respiratory rate 16 /min No Primary Care Physician [facility] 06-04-2023 13:50-0500 SaO2% (BldA) [Mass fraction] 97 % No Primary Care Physician [facility] 06-04-2023 13:50-0500 Systolic blood pressure 172 mm[Hg] No Primary Care Physician [facility] 06-04-2023 09:42-0500 Body height 167.64 cm No Primary Care Physician [facility] 06-04-2023 09:42-0500 Body mass index (BMI) [Ratio] 27.8 kg/m2 No Primary Care Physician [facility] 06-04-2023 09:42-0500 Body weight 78.04 kg No Primary Care Physician [facility] 05-15-2023 10:00-0500 Body height 167.64 cm No Primary Care Physician [facility] 05-15-2023 10:00-0500 Body weight 76.1 kg No Primary Care Physician [facility] 05-15-2023 09:00-0500 Heart rate 87 /min No Primary Care Physician [facility] 05-15-2023 08:00-0500 Body temperature 97.8 [degF] No Primary Care Physician [facility] 05-15-2023 08:00-0500 Diastolic blood pressure 88 mm[Hg] No Primary Care Physician [facility] 05-15-2023 08:00-0500 Respiratory rate 15 /min No Primary Care Physician [facility] 05-15-2023 08:00-0500 SaO2% (BldA) [Mass fraction] 97 % No Primary Care Physician [facility] 05-15-2023 08:00-0500 Systolic blood pressure 163 mm[Hg] No Primary Care Physician [facility] 05-15-2023 02:40-0500 Body mass index (BMI) [Ratio] 27.1 kg/m2 No Primary Care Physician [facility] 05-14-2023 16:44-0500 Diastolic blood pressure 88 mm[Hg] No Primary Care Physician [facility] 05-14-2023 16:44-0500 Heart rate 88 /min No Primary Care Physician [facility] 05-14-2023 16:44-0500 Respiratory rate 17 /min No Primary Care Physician [facility] 05-14-2023 16:44-0500 SaO2% (BldA) [Mass fraction] 99 % No Primary Care Physician [facility] 05-14-2023 16:44-0500 Systolic blood pressure 150 mm[Hg] No Primary Care Physician [facility] 05-14-2023 14:21-0500 Body height 167.64 cm No Primary Care Physician [facility] 05-14-2023 14:21-0500 Body mass index (BMI) [Ratio] 27.3 kg/m2 No Primary Care Physician [facility] 05-14-2023 14:21-0500 Body temperature 96.3 [degF] No Primary Care Physician [facility] 05-14-2023 14:21-0500 Body weight 76.97 kg No Primary Care Physician [facility] 04-23-2023 14:39-0500 Diastolic blood pressure 74 mm[Hg] No Primary Care Physician [facility] 04-23-2023 14:39-0500 Heart rate 77 /min No Primary Care Physician [facility] 04-23-2023 14:39-0500 Respiratory rate 16 /min No Primary Care Physician [facility] 04-23-2023 14:39-0500 SaO2% (BldA) [Mass fraction] 99 % No Primary Care Physician [facility] 04-23-2023 14:39-0500 Systolic blood pressure 122 mm[Hg] No Primary Care Physician [facility] 04-23-2023 11:44-0500 Body height 167.64 cm No Primary Care Physician [facility] 04-23-2023 11:44-0500 Body mass index (BMI) [Ratio] 27.6 kg/m2 No [facility] Care Physician [facility] [facility] 04-23-2023 11:44-0500 Body temperature 97.5 [degF] No Primary Care Physician [facility] 04-23-2023 11:44-0500 Body weight 77.83 kg No Primary Care Physician [facility] 04-13-2023 15:57-0500 Body height 167.64 cm No Primary Care Physician [facility] 04-13-2023 15:57-0500 Body temperature 96.8 [degF] No Primary Care Physician [facility] 04-13-2023 15:57-0500 Diastolic blood pressure 91 mm[Hg] No Primary Care Physician [facility] 04-13-2023 15:57-0500 Heart rate 96 /min No Primary Care Physician [facility] 04-13-2023 15:57-0500 Respiratory rate 18 /min No Primary Care Physician [facility] 04-13-2023 15:57-0500 SaO2% (BldA) [Mass fraction] 100 % No Primary Care Physician [facility] 04-13-2023 15:57-0500 Systolic blood pressure 175 mm[Hg] No Primary Care Physician [facility] 03-15-2023 09:51-0500 Body temperature 97.4 [degF] No Primary Care Physician [facility] 03-15-2023 09:51-0500 Diastolic blood pressure 89 mm[Hg] No Primary Care Physician [facility] 03-15-2023 09:51-0500 Heart rate 90 /min No Primary Care Physician [facility] 03-15-2023 09:51-0500 Respiratory rate 18 /min No Primary Care Physician [facility] 03-15-2023 09:51-0500 SaO2% (BldA) [Mass fraction] 97 % No Primary Care Physician [facility] 03-15-2023 09:51-0500 Systolic blood pressure 147 mm[Hg] No Primary Care Physician [facility] 03-15-2023 05:08-0500 Body mass index (BMI) [Ratio] 22.9 kg/m2 No Primary Care Physician [facility] 03-15-2023 05:08-0500 Body weight 64.5 kg No Primary Care Physician [facility] 03-14-2023 10:06-0500 Body height 167.64 cm No Primary Care Physician [facility] 03-12-2023 17:00-0500 Diastolic blood pressure 95 mm[Hg] No Primary Care Physician [facility] 03-12-2023 17:00-0500 Heart rate 113 /min No Primary Care Physician [facility] 03-12-2023 17:00-0500 Respiratory rate 24 /min No Primary Care Physician [facility] 03-12-2023 17:00-0500 SaO2% (BldA) [Mass fraction] 100 % No Primary Care Physician [facility] 03-12-2023 17:00-0500 Systolic blood pressure 154 mm[Hg] No Primary Care Physician [facility] 03-12-2023 13:34-0500 Body height 167.64 cm No Primary Care Physician [facility] 03-12-2023 13:34-0500 Body mass index (BMI) [Ratio] 29 kg/m2 No Primary Care Physician [facility] 03-12-2023 13:34-0500 Body temperature 96.7 [degF] No Primary Care Physician [facility] 03-12-2023 13:34-0500 Body weight 81.64 kg No Primary Care Physician [facility] 03-01-2023 00:49-0500 Diastolic blood pressure 65 mm[Hg] [facility] 03-01-2023 00:49-0500 Heart rate 69 /min [facility] 03-01-2023 00:49-0500 Respiratory rate 17 /min [facility] 03-01-2023 00:49-0500 SaO2% (BldA) [Mass fraction] 98 % [facility] 03-01-2023 00:49-0500 Systolic blood pressure 170 mm[Hg] [facility] 02-28-2023 20:40-0500 Body height 167.64 cm [facility] 02-28-2023 20:40-0500 Body mass index (BMI) [Ratio] 27.8 kg/m2 [facility] 02-28-2023 20:40-0500 Body temperature 96.8 [degF] [facility] 02-28-2023 20:40-0500 Body weight 78.24 kg [facility] 02-09-2023 05:44-0500 Diastolic blood pressure 94 mm[Hg] [facility] 02-09-2023 05:44-0500 Heart rate 90 /min [facility] 02-09-2023 05:44-0500 Respiratory rate 15 /min [facility] 02-09-2023 05:44-0500 SaO2% (BldA) [Mass fraction] 98 % [facility] 02-09-2023 05:44-0500 Systolic blood pressure 170 mm[Hg] [facility] 02-09-2023 01:22-0500 Body height 167.64 cm [facility] 02-09-2023 01:22-0500 Body mass index (BMI) [Ratio] 29.2 kg/m2 [facility] 02-09-2023 01:22-0500 Body temperature 97.9 [degF] [facility] 02-09-2023 01:22-0500 Body weight 82.1 kg [facility] Encounters Encounter Date Encounter Type Care Provider Facility Start: 12-13-2024 End: 12-13-2024 Emergency department patient visit KARTIK NOWAK MD [facility] Start: 11-13-2024 ambulatory Sergio Sutherland Facility:[facility] [place] Start: 11-13-2024 End: 11-13-2024 ambulatory Autumn Whitt Facility:[facility] Start: 11-07-2024 End: 11-07-2024 Emergency department patient visit PAVEL QURESHI [facility] Start: 11-01-2024 End: 11-01-2024 Patient encounter procedure Francheska PEÑA -[facility] Work Phone: Start: 11-01-2024 End: 11-01-[address] Autumn Whitt MD Work Phone: -[facility] Start: 11-01-2024 End: 11-01-2024 Patient encounter procedure Flavio PEÑA -[facility] Work Phone: Start: 11-01-2024 End: 11-01-[address] Autumn Whitt MD Work Phone: -[facility] Start: 10-18-2024 End: 10-18-2024 Emergency department patient visit Vikram Szymanski DO Work Phone: [facility] Comment on above: Peripheral vascular disease (Primary Dx); Pain in right leg Start: 10-17-2024 ambulatory Autumn Whitt Facility :[facility] Start: 10-15-2024 ambulatory Autumn Whitt Facility :[facility] Start: 09-20-2024 End: 09-20-[address] Autumn Whitt MD Work Phone: [facility] Work Phone: Start: 09-20-2024 End: 09-20-2024 Patient encounter procedure Georgina Sharpe NP-C -Laboratory Work Phone: Start: 09-20-2024 End: 09-20-2024 ambulatory Georgina Sharpe Facility:[facility] Start: 09-06-2024 End: 09-06-2024 Emergency department patient visit [facility] Start: 08-30-2024 End: 08-30-2024 Emergency department patient visit Dr. Autumn Whitt MD Work Phone: -Emergency Department Work Phone: Start: 08-15-2024 End: 08-15-2024 Patient encounter procedure Georgina Sharpe NP-C -[facility] Work Phone: Start: 08-15-2024 End: 08-15-[address] Autumn Whitt MD Work Phone: [facility] Work Phone: Start: 07-15-2024 End: 07-15-[address] Autumn Whitt MD -[facility] Work Phone: Start: 07-15-2024 End: 07-15-2024 ambulatory Autumn Whitt Facility:[facility] Start: 06-18-2024 ambulatory Autumn [place] Facility :[facility] Start: 05-03-2024 ambulatory Autumn Jose Eduardo Facility :[facility] Start: 04-10-2024 End: 04-11-2024 ambulatory SHY HANNON [facility] Start: 03-11-2024 ambulatory Autumn Jose Eduardo Facility :[facility] Start: 03-07-2024 End: 03-07-2024 ambulatory Georgina Sharpe Facility:[facility] Start: 02-28-2024 End: 02-28-2024 Emergency department patient visit Sergio Vogel Facility:[facility] Start: 02-28-2024 ambulatory Latisha Us [facility] Start: 02-12-2024 ambulatory [facility] Facility: [facility] Start: 02-07-2024 ambulatory Autumn [place] Facility :[facility] Start: 01-15-2024 End: 01-15-2024 Emergency department patient visit PAVEL QURESHI [facility] Start: 01-11-2024 End: 02-01-2024 ambulatory [facility] Facility:[facility] Start: 01-10-2024 ambulatory Jeannine Mayes Facility :[facility] Start: 07-14-2023 End: 07-14-2023 ambulatory [facility] Work Phone: [facility] Work Phone: Start: 07-14-2023 End: 07-14-2023 Patient encounter procedure [facility] Work Phone: [facility], [facility] Start: 07-14-2023 End: 07-14-2023 Patient encounter procedure [facility] Work Phone: [facility] Work Phone: Start: 07-13-2023 End: 07-13-2023 Patient encounter procedure [facility] Work Phone: [facility] Work Phone: Start: 07-12-2023 End: 07-12-2023 Emergency department patient visit No Primary Care Physician [facility] Work Phone: Start: 06-04-2023 End: 06-04-2023 Emergency department patient visit No Primary Care Physician [facility] Work Phone: Start: 05-15-2023 Non-patient / Non-visit No Primary Care Physician [facility] Work Phone: Start: 05-15-2023 Non-patient / Non-visit No Primary Care Physician [facility] Start: 05-14-2023 End: 05-15-2023 Evaluation and management of inpatient No Primary Care Physician [facility] Work Phone: Start: 05-14-2023 Evaluation and management of inpatient No Primary Care Physician [facility] Work Phone: Start: 04-23-2023 End: 04-23-2023 Emergency department patient visit No Primary Care Physician [facility] Work Phone: Start: 04-13-2023 End: 04-13-2023 Emergency department patient visit No Primary Care Physician [facility] Work Phone: Start: 03-15-2023 Non-patient / Non-visit No Primary Care Physician [facility] Work Phone: Start: 03-14-2023 Non-patient / Non-visit No Primary Care Physician [facility] Work Phone: Start: 03-13-2023 Non-patient / Non-visit No Primary Care Physician [facility] Work Phone: Start: 03-12-2023 Non-patient / Non-visit No Primary Care Physician [facility] Work Phone: Start: 03-12-2023 End: 03-15-2023 Evaluation and management of inpatient [facility] Start: 02-28-2023 End: 03-01-2023 Emergency department patient visit [facility] Work Phone: Start: 02-09-2023 End: 02-09-2023 Emergency department patient visit [facility] Work Phone: Procedures Date Procedure Procedure Detail Performing Clinician Start: 11-07-2024 Urinalysis YEYO ZHOU Comment on above: Result Comment: URIN ALYSIS Performed By: #### [id number] #### [facility],[address] [place] [address] Start: 10-18-2024 Prothrombin time Aman Szymanski DO Work Phone: Start: 10-18-2024 Cta abdl aorta&bi iliofem w/contrast&postp Vikram Szymanski DO Work Phone: Start: 10-18-2024 Basic metabolic pane l calcium total Vikram Szymanski DO Work Phone: Start: 10-18-2024 Dup-scan xtr veins unilateral/limited study Vikram Szymanski DO Work Phone: Start: 10-18-2024 Radex spine lumbosac ral 2/3 views Vikram Szymanski DO Work Phone: Start: 09-20-2024 Insulin C-peptide measurement Dr. Autumn Whitt MD Work Phone: Comment on above: C-Peptide reference interval is for fasting patients. Start: 09-20-2024 Urine microalbumin/creatinine ratio measurement Dr. Autumn Whitt MD Work Phone: Start: 09-20-2024 Vitamin D, 25-hydrox y measurement Dr. Autumn Whitt MD Work Phone: Comment on above: Vitamin D StatusDefi ciency: <20 ng/mL (50nmol/L)Insufficiency: 20-30 ng/mL (50-75 nmol/L)Sufficiency: 30-100 ng/mL (75-250 nmol/L)Toxicity: >100 ng/mL (>250 nmol/L) Start: 08-30-2024 Plain x-ray of pelvi s and lower extremity Dr. Autumn [place] MD Work Phone: Start: 08-30-2024 Plain X-ray of shoulder Dr. Autumn Whitt MD Work Phone: Start: 08-30-2024 Plain X-ray of tibia and fibula Dr. Autumn Whitt MD Work Phone: Start: 08-30-2024 CT cervical spine without contrast Dr. Autumn Whitt MD Work Phone: Start: 06-04-2023 CT of head without contrast No Primary Care Physician Start: 05-14-2023 CT of head without contrast No Primary Care Physician Start: 04-23-2023 Computerized axial tomography of lumbar spine with contrast No Primary Care Physician Start: 03-12-2023 Plain chest X-ray No Pr imary Care Physician Start: 02-28-2023 X-ray of lumbar spin e, two or three views Start: 02-09-2023 X-ray of both feet Screening for malign ant neoplasm of cervix Z12.4 - Encounter for screening for malignant neoplasm of cervix Dr. Autumn Whitt MD Work Phone: Plan of Treatment Date Care Activity Detail Author Start: 2036 Zoster Vaccines (1 of 2) Zoster Vaccines (1 of 2) [facility] Start: 10-19-2027 Diabetes mellitus screening Diabetes Screening [facility] Start: 12-02-2024 Influenza vaccination Influenza Vaccine (#1) [facility] Start: 08-30-2024 [facility] Start: 07-15-2024 Patient referral [facility] Work Phone: Start: 12-03-2023 COVID-19 Vaccine ( season) COVID-19 Vaccine ( season) [facility] Start: 07-14-2023 Patient referral [facility] Work Phone: Start: 07-13-2023 Patient referral [facility] Work Phone: Start: 07-12-2023 [facility] Start: 06-04-2023 [facility] Start: 05-19-2023 Prothrombin time [facility] Start: 05-18-2023 Prothrombin time [facility] Start: 05-17-2023 Prothrombin time [facility] Start: 05-16-2023 Prothrombin time [facility] Start: 05-15-2023 Blood chemistry [facility] Start: 05-15-2023 Blood chemistry [facility] Start: 05-15-2023 Patient discharge [facility] Start: 05-15-2023 Blood chemistry [facility] Start: 05-15-2023 Care planning and problem solving actions [facility] Start: 05-15-2023 Care regimes management [facility] Start: 05-15-2023 Notification of physician [facility] Start: 05-15-2023 [facility] Start: 05-14-2023 Urine test [facility] Start: 05-14-2023 Assessment of risk of venous thromboembolism [facility] Start: 05-14-2023 Continuous pulse oximetry [facility] Start: 05-14-2023 End: 05-14-2023 Following clinical pathway protocol [facility] Start: 05-14-2023 Insertion of catheter into peripheral vein [facility] Start: 05-14-2023 Lab findings surveillance [facility] Start: 05-14-2023 Measuring intake and output [facility] Start: 05-14-2023 Notification of physician [facility] Start: 05-14-2023 Patient education [facility] Start: 05-14-2023 Providing care according to standard [facility] Start: 05-14-2023 Vital signs measurements [facility] Start: 05-14-2023 End: 05-14-2023 [facility] Start: 05-14-2023 Admission procedure [facility] Start: 05-14-2023 Verification routine [facility] Start: 05-14-2023 Hospital admission, emergency, from emergency room, medical nature [facility] Start: 05-14-2023 [facility] Start: 04-23-2023 [facility] Start: 03-17-2023 Blood chemistry [facility] Start: 03-16-2023 Blood chemistry [facility] Start: 03-16-2023 Prothrombin time [facility] Start: 03-15-2023 Patient discharge [facility] Start: 03-14-2023 End: 03-15-2023 [facility] Start: 03-13-2023 Care planning and problem solving actions [facility] Start: 03-13-2023 Care regimes management [facility] Start: 03-13-2023 Notification of physician [facility] Start: 03-13-2023 [facility] Start: 03-12-2023 [facility] Start: 03-12-2023 Following clinical pathway protocol [facility] Start: 03-12-2023 Assessment of risk of venous thromboembolism [facility] Start: 03-12-2023 Continuous pulse oximetry [facility] Start: 03-12-2023 Insertion of catheter into peripheral vein [facility] Start: 03-12-2023 Measuring intake and output [facility] Start: 03-12-2023 Notification of physician [facility] Start: 03-12-2023 Patient education [facility] Start: 03-12-2023 Patient referral to dietitian [facility] Start: 03-12-2023 Providing care according to standard [facility] Start: 03-12-2023 Vital signs measurements [facility] Start: 03-12-2023 End: 03-12-2023 [facility] Start: 03-12-2023 Troponin I measurement [facility] Start: 03-12-2023 Verification routine [facility] Start: 03-12-2023 Admission procedure [facility] Start: 03-12-2023 Hospital admission, emergency, from emergency room, medical nature [facility] Start: 03-12-2023 End: 03-13-2023 [facility] Start: 03-12-2023 Patient referral to dietitian [facility] Start: 03-01-2023 [facility] Start: 02-28-2023 Assay of lactate ASSAY OF LACTIC ACID [facility] Start: 02-09-2023 [facility] Start: 2013 HPV Vaccines (1 - 3-dose standard series) HPV Vaccines (1 - 3-dose standard series) [facility] Start: 2008 DTaP/Tdap/Td Vaccines (1 - Tdap) DTaP/Tdap/Td Vaccines (1 - Tdap) [facility] Start: 10-25-2007 Screening for malignant neoplasm of cervix [facility] Start: 2005 Hepatitis B Vaccines (1 of 3 - 19+ 3-dose series) Hepatitis B Vaccines (1 of 3 - 19+ 3-dose series) [facility] Start: 2004 Hepatitis C screening Hepatitis C Screening [facility] Start: 10-25-1999 Varicella vaccination Varicella Vaccines (1 of 2 - 13+ 2-dose series) [facility] Start: 10-25-1987 MMR Vaccines (1 of 1 - Standard series) MMR Vaccines (1 of 1 - Standard series) [facility] Start: 1986 HIV screening HIV Screening [facility] Start: 1986 Lipid panel Lipid Panel [facility] Start: 1986 Thyroid stimulating hormone measurement TSH Level [facility] Start: 1986 Yearly Adult Physical Yearly Adult Physical [facility] Anion gap measurement [facility] BUN/Creatinine ratio [facility] C peptide [Mass/volu me] in Serum or Plasma [facility] Calcium [Mass/volume ] in Serum or Plasma [facility] Carbon dioxide, tota l [Moles/volume] in Serum or Plasma [facility] CBC W Auto Different ial panel - Blood [facility] Chloride [Moles/volu me] in Serum or Plasma [facility] metabo lic 1999 panel - Serum or Plasma [facility] metabo lic 1999 panel - Serum or Plasma [facility] Creatinine [Moles/vo lume] in Serum or Plasma [facility] Glucose [Mass/volume ] in Serum or Plasma [facility] Lipid 1995 panel - S [place] or Plasma [facility] Lipid 1995 panel - [facility] or Plasma [facility] Measurement of renal function [facility] Patient Education [facility] Work Phone: Patient referral [facility] Work Phone: Potassium [Moles/vol ume] in Serum or Plasma [facility] Sodium [Moles/volume ] in Serum or Plasma [facility] T4 free measurement [facility] Thyroid stimulating hormone measurement [facility] Thyroid stimulating hormone measurement [facility] Thyroid stimulating hormone measurement [facility] Urea nitrogen [Mass/volume] in Serum or Plasma [facility] Urine microalbumin/creatinine ratio measurement [facility] US.doppler Lower ext remity vein - right Vascular US lower extremity venous duplex right Vascular Ultrasound Routine Pain in right leg 10/18/2024 3:06 PM EDT [facility] Work Phone: Vitamin D, 25-hydrox y measurement [facility] Immunizations Immunization Date Immunization Notes Care Provider Fa cility 05-15-2023 influenza, injectabl e, quadrivalent, preservative free No Primary Care Physician [facility] Payers Date Payer Category Payer Medicaid [id number] 2024 Medicaid (Managed Care) [employer] [id number] 2023 Self-pay 2023 Unknown [id number] 1986 Unknown [id number] 2..840.1.442697.3.579.2. 1243 1986 Unknown [id number] .840.1.884728.3.579.2. 651 1986 Unknown [id number] 2..840.1.450540.3.579.2. 651 1986 Unknown [id number] 2.16.840.1.186282.3.579.2. 651 1986 Unknown [id number] 2..840.1.855911.3.579.2. 651 1986 Unknown [id number] 2.840.1.969459.3.579.2. 627 Medicaid MEDICAID OTHER [id number] Unknown [id number] 2.840.1.823966.3.579.2. 462 Unknown [id number] 2.840.1.076620.3.579.2. 462 Unknown [id number] 2.840.1.822278.3.579.2. 462 Unknown [id number] 2.840.1.888805.3.579.2. 462 Unknown [id number] 2.840.1.129453.3.579.2. 462 Unknown [id number] 2.840.1.655957.3.579.2. 462 Unknown [id number] 2.840.1.799662.3.579.2. 462 Unknown [id number] 2.840.1.081813.3.579.2. 462 Unknown [id number] 2.840.1.125135.3.579.2. 462 Unknown [id number] 2.840.1.914496.3.579.2. 462 Unknown [id number] .840.1.405155.3.579.2. 462 Unknown [id number] 2.840.1.427561.3.579.2. 462 Unknown [id number] 2.840.1.027584.3.579.2. 462 Unknown [id number] 2.840.1.146526.3.579.2. 462 Unknown [id number] 2.16.840.1.456956.3.579.2. 462 Unknown [id number] 2.16.840.1.492918.3.579.2. 462 Unknown [id number] 2.16.840.1.118786.3.579.2. 462 Unknown [id number] 2.16.840.1.938823.3.579.2. 462 Unknown [id number] 2.16.840.1.963918.3.579.2. 462 Unknown [id number] 2.16.840.1.486369.3.579.2. 462 Unknown [id number] 2.16.840.1.370160.3.579.2. 462 Social History Date Type Detail Facility Start: 02-09-2023 End: 07-14-2023 Tobacco smoking status FLIS Unknown if ever smoked [facility] Start: 1985 Sex Assigned At Female [facility] Start: 02-28-2024 End: 10-29-2024 Tobacco smoking status NHIS Ex-smoker (finding) [facility] Start: 10-18-2024 Tobacco smoking status FLIS Never smoked tobacco [facility] Work Phone: Start: 10-18-2024 Tobacco use and exposure Smokeless tobacco non-user [facility] Work Phone: Start: 10-18-2024 Alcoholic beverage intake Lifetime non-drinker (finding) [facility] Work Phone: Start: 10-18-2024 History of Social function [facility] Work Phone: Start: 10-18-2024 Tobacco use panel [facility] Work Phone: Start: 10-18-2024 Sex Female [facility] Start: 10-18-2024 Gender identity Identifies as female gender (finding) [facility] Work Phone: Tobacco smoking status [facility] Start: 12-13-2024 Sex Female (finding) [facility] NEGATED: Highlighted row [facility] Medical Equipment Procedure Code Equipment Code Equipment Origin al Text Equipment Identifier Dates Blood Sugar Diagnostic (Blood Glucose Test) strip Start: 03-14-2023 Lancets Start: 03-14-2023 Blood Sugar Diagnostic (Blood Glucose Test) strip Start: 03-14-2023 Lancets Start: 03-14-2023 Blood Sugar Diagnostic (Blood Glucose Test) strip Start: 03-14-2023 Lancets Start: 03-14-2023 Blood Sugar Diagnostic (Blood Glucose Test) strip Start: 03-14-2023 Lancets Start: 03-14-2023 Blood Sugar Diagnostic (Blood Glucose Test) strip Start: 03-14-2023 Lancets Start: 03-14-2023 Blood Sugar Diagnostic (Blood Glucose Test) strip Start: 03-14-2023 Lancets Start: 03-14-2023 Blood Sugar Diagnostic (Blood Glucose Test) strip Start: 03-14-2023 Lancets Start: 03-14-2023 Blood Sugar Diagnostic (Blood Glucose Test) strip Start: 03-14-2023 Lancets Start: 03-14-2023 Blood Sugar Diagnostic (Onetouch Verio Test Strips) strip Start: 07-17-2023 Lancets (Onetouc h [employer] Safety Lancet) 30 gauge misc Start: 07-17-2023 Pen Needle, Diab etic (Bd Ultra-Fine Elyssa Pen Needle) 32 gauge x 5/32 needle Start: 07-13-2023 Blood Sugar Diagnostic (Accu-Chek Guide Test Strips) strip Start: 07-13-2023 End: 07-17-2023 Blood Sugar Diagnostic (Blood Glucose Test) strip Start: 03-14-2023 End: 07-13-2023 Lancets Start: 03-14-2023 End: 07-13-2023 Lancets (Accu-Ch ek Softclix Lancets) misc Start: 07-13-2023 End: 07-17-2023 Blood Sugar Diagnostic (Onetouch Verio Test Strips) strip Start: 07-17-2023 Insulin Syr/Ndl U100 Half Jesús 0.3 mL 30 gauge x 1/2 syringe Start: 03-14-2023 Lancets (Onetouc h Delica Safety Lancet) 30 gauge misc Start: 07-17-2023 Pen Needle, Diab etic (Bd Ultra-Fine Elyssa Pen Needle) 32 gauge x 5/32 needle Start: 07-13-2023 Blood Sugar Diagnostic (Accu-Chek Guide Test Strips) strip Start: 07-13-2023 End: 07-17-2023 Blood Sugar Diagnostic (Blood Glucose Test) strip Start: 03-14-2023 End: 07-13-2023 Lancets (Accu-Ch ek Softclix Lancets) misc Start: 07-13-2023 End: 07-17-2023 Lancets 30 gauge misc Start: 03-14-2023 End: 07-13-2023 Blood Sugar Diagnostic (Onetouch Verio Test Strips) strip Start: 07-17-2023 Insulin Syr/Ndl U100 Half Jesús 0.3 mL 30 gauge x 1/2 syringe Start: 03-14-2023 Lancets (Onetouc h Delica Safety Lancet) 30 gauge misc Start: 07-17-2023 Pen Needle, Diab etic (Bd Ultra-Fine Elyssa Pen Needle) 32 gauge x 5/32 needle Start: 07-13-2023 Blood Sugar Diagnostic (Accu-Chek Guide Test Strips) strip Start: 07-13-2023 End: 07-17-2023 Blood Sugar Diagnostic (Blood Glucose Test) strip Start: 03-14-2023 End: 07-13-2023 Lancets (Accu-Ch ek Softclix Lancets) misc Start: 07-13-2023 End: 07-17-2023 Lancets 30 gauge misc Start: 03-14-2023 End: 07-13-2023 Blood Sugar Diagnostic (Onetouch Verio Test Strips) strip Start: 07-17-2023 Insulin Syr/Ndl U100 Half Jesús 0.3 mL 30 gauge x 1/2 syringe Start: 03-14-2023 Lancets (Onetouc h Delica Safety Lancet) 30 gauge misc Start: 07-17-2023 Pen Needle, Diab etic (Bd Ultra-Fine Elyssa Pen Needle) 32 gauge x 5/32 needle Start: 07-13-2023 Blood Sugar Diagnostic (Accu-Chek Guide Test Strips) strip Start: 07-13-2023 End: 07-17-2023 Blood Sugar Diagnostic (Blood Glucose Test) strip Start: 03-14-2023 End: 07-13-2023 Lancets (Accu-Ch ek Softclix Lancets) misc Start: 07-13-2023 End: 07-17-2023 Lancets 30 gauge misc Start: 03-14-2023 End: 07-13-2023 Blood Sugar Diagnostic (Onetouch Verio Test Strips) strip Start: 07-17-2023 Insulin Syr/Ndl U100 Half Jesús 0.3 mL 30 gauge x 1/2 syringe Start: 03-14-2023 Lancets (Onetouc h Delica Safety Lancet) 30 gauge misc Start: 07-17-2023 Pen Needle, Diab etic (Bd Ultra-Fine Elyssa Pen Needle) 32 gauge x 5/32 needle Start: 07-13-2023 Blood Sugar Diagnostic (Accu-Chek Guide Test Strips) strip Start: 07-13-2023 End: 07-17-2023 Blood Sugar Diagnostic (Blood Glucose Test) strip Start: 03-14-2023 End: 07-13-2023 Lancets (Accu-Ch ek Softclix Lancets) misc Start: 07-13-2023 End: 07-17-2023 Lancets 30 gauge misc Start: 03-14-2023 End: 07-13-2023 Blood Sugar Diagnostic (Onetouch Verio Test Strips) strip Start: 07-17-2023 Lancets (Onetouc h Delica Safety Lancet) 30 gauge misc Start: 07-17-2023 Blood Sugar Diagnostic (Accu-Chek Guide Test Strips) strip Start: 07-13-2023 End: 07-17-2023 Blood Sugar Diagnostic (Blood Glucose Test) strip Start: 03-14-2023 End: 07-13-2023 Insulin Syr/Ndl U100 Half Jesús 0.3 mL 30 gauge x 1/2 syringe Start: 03-14-2023 End: 11-01-2024 Lancets (Accu-Ch ek Softclix Lancets) misc Start: 07-13-2023 End: 07-17-2023 Lancets 30 gauge misc Start: 03-14-2023 End: 07-13-2023 Pen Needle, Diab etic (Bd Ultra-Fine Elyssa Pen Needle) 32 gauge x 5/32 needle Start: 07-13-2023 End: 11-01-2024 Goals Date Patient Goal Desired Activity /State Functional Status Date Assessment Result Facility 10-18-2024 [place] [facility] everity rating scale screener - recent [C-SSRS] [facility] Work Phone: 05-15-2023 Functional status [facility] Work Phone: 03-15-2023 Functional status [facility] Work Phone: Mental Status Date Assessment Result Facility 07-12-2023 Cognitive function Level Of Cons ciousness Awake;Alert;Appropriate;Follow s Commands [facility] Work Phone: 06-04-2023 Cognitive function Level Of Cons ciousness Awake;Alert;Appropriate;Follow s Commands [facility] Work Phone: 05-15-2023 Cognitive function Voice/Name [facility] Work Phone: 05-14-2023 Cognitive function Level Of Cons ciousness Awake;Alert;Appropriate;Follow s Commands [facility] Work Phone: 03-15-2023 Cognitive function Voice/Name [facility] Work Phone: 03-12-2023 Cognitive function Voice/Name [facility] Work Phone: Clinical Notes 02-09-2023 to 12-13-2024 Vikram Szymanski, - 10/18/2024 2:38 PM EDTSstan Szymanski, - 10/18/2024 2:38 PM EDT Note Date & Type Note Facility 12-13-2024 Hospital Discharge instructions Patient Education 12/13/2024 17:29:58 Sciatica Sciatica Sciatica is a condition that causes pain in the lower back that spreads down into the buttock, hip, and leg. Sometimes the leg pain can happen without any back pain. Sciatica happens when a spinal nerve is irritated or has pressure put on it as comes out of the spinal canal in the lower back. This most often happens when a bulge or rupture of a nearby spinal disk presses on the nerve. Sciatica can also be caused by a narrowing of the spinal canal (spinal stenosis) or spasm of the muscle in the buttocks that the sciatic nerve passes through (pyriform muscle). Sciatica is also called lumbar radiculopathy. Sciatica may begin after a sudden twisting or bending force, such as in a car accident. Or it can happen after a simple awkward movement. In either case, muscle spasm often also happens. Muscle spasm makes the pain worse. A healthcare provider makes a diagnosis of sciatica from your symptoms and a physical exam. Unless you had an injury from a car accident or fall, you usually won t have X-rays taken at this time. This is because the nerves and disks in your back can t be seen on an X-ray. If the provider sees signs of a compressed nerve, you will need to schedule an MRI scan as an outpatient. Signs of a compressed nerve include loss of strength in a leg. Most sciatica gets better with medicine, exercise, and physical therapy. If your symptoms continue after at least 3 months of medical treatment, you may need surgery or injections to your lower back. Home care Follow these tips when caring for yourself at home: You may need to stay in bed the first few days. But as soon as possible, begin sitting up or walking. This will help you avoid problems that come from staying in bed for long periods. When in bed, try to find a position that is comfortable. A firm mattress is best. Try lying flat on your back with pillows under your knees. You can also try lying on your side with your knees bent up toward your chest and a pillow between your knees. Avoid sitting for long periods. This puts more stress on your lower back than standing or walking. Use heat from a hot shower, hot bath, or heating pad to help ease pain. Massage can also help. You can also try using an ice pack. You can make your own ice pack by putting ice cubes in a plastic bag. Wrap the bag in a thin towel. Try both heat and cold to see which works best. Use the method that feels best for 20 minutes several times a day. You may use acetaminophen or ibuprofen to ease pain, unless another pain medicine was prescribed. Note: If you have chronic liver or kidney disease, talk with your healthcare provider before taking these medicines. Also talk with your provider if you ve had a stomach ulcer or gastrointestinal bleeding. Use safe lifting methods. Don t lift anything heavier than 15 pounds until all of the pain is gone. Follow-up care Follow up with your healthcare provider, or as advised. You may need physical therapy or additional tests. If X-rays were taken, a radiologist will look at them. You will be told of any new findings that may affect your care. When to seek medical advice Call your healthcare provider right away if any of these occur: Pain gets worse even after taking prescribed medicine Weakness or numbness in 1 or both legs or hips Numbness in your groin or genital area You can t control your bowel or bladder Fever Redness or swelling over your back or spine [id number] [employer]. [address] [place] [address]. All rights reserved. This information is not intended as a substitute for professional medical care. Always follow your healthcare professional's instructions. Follow Up Care 12/13/2024 15:44:08 With:EPHRAIM SHAY DO Address: [address] [place] [address] [place] [address] [phone] When:2-4 days [facility] 12-13-2024 Note Discharge Instructions Thank you for allowing [facility] to assist you with your healthcare needs. The following is important discharge information regarding your hospital visit. Diagnosis from Today's Visit Sciatica What to Do Next Instructions from Your Care Team You were evaluated in the Emergency Department today for your back pain. Your evaluation did not show signs of medical conditions requiring emergent intervention at this time. Please schedule an appointment for follow-up with your primary care physician this week for further evaluation of your symptoms. Return to the Emergency Department if you experience worsening back pain, difficulty walking, fevers, numbness, tingling, incontinence, or any other concerning symptoms. Thank you for choosing us for your care. Discharge Return to Work, School, or Sports (Return to Work, School, or Sports) - Ordered -- 12/14/24, May return to: work, 12/13/24 17:46:00 EDT Post Acute Orders No qualifying data available. You Need to Schedule the Following Appointments Follow Up with EPHRAIM SHAY DO When:Within 2-4 days Where:[address] [facility] [place] [address]- [phone] Allergies Oranges morphine Medications Please ask your primary doctor or pharmacist before taking any other medication not listed, including over the counter drugs, herbal medications, vitamins and or supplements as they may interact with your home medications. What How Much When Instructions Last Dose New cyclobenzaprine (cyclobenzaprine 5 mg oral tablet) 1 tab(s) by mouth Three (3) times a day Duration: 5 Days Printed Prescription Please take this list to your next doctor s visit. Bring all medications you take, including over the counter medications, herbals and other supplements with you to your doctor s visit. Patients and families are reminded to discard old lists and to update any records with all medication providers or retail pharmacies. Education Materials Sciatica Sciatica is a condition that causes pain in the lower back that spreads down into the buttock, hip, and leg. Sometimes the leg pain can happen without any back pain. Sciatica happens when a spinal nerve is irritated or has pressure put on it as comes out of the spinal canal in the lower back. This most often happens when a bulge or rupture of a nearby spinal disk presses on the nerve. Sciatica can also be caused by a narrowing of the spinal canal (spinal stenosis) or spasm of the muscle in the buttocks that the sciatic nerve passes through (pyriform muscle). Sciatica is also called lumbar radiculopathy. Sciatica may begin after a sudden twisting or bending force, such as in a car accident. Or it can happen after a simple awkward movement. In either case, muscle spasm often also happens. Muscle spasm makes the pain worse. A healthcare provider makes a diagnosis of sciatica from your symptoms and a physical exam. Unless you had an injury from a car accident or fall, you usually won t have X-rays taken at this time. This is because the nerves and disks in your back can t be seen on an X-ray. If the provider sees signs of a compressed nerve, you will need to schedule an MRI scan as an outpatient. Signs of a compressed nerve include loss of strength in a leg. Most sciatica gets better with medicine, exercise, and physical therapy. If your symptoms continue after at least 3 months of medical treatment, you may need surgery or injections to your lower back. Home care Follow these tips when caring for yourself at home: You may need to stay in bed the first few days. But as soon as possible, begin sitting up or walking. This will help you avoid problems that come from staying in bed for long periods. When in bed, try to find a position that is comfortable. A firm mattress is best. Try lying flat on your back with pillows under your knees. You can also try lying on your side with your knees bent up toward your chest and a pillow between your knees. Avoid sitting for long periods. This puts more stress on your lower back than standing or walking. Use heat from a hot shower, hot bath, or heating pad to help ease pain. Massage can also help. You can also try using an ice pack. You can make your own ice pack by putting ice cubes in a plastic bag. Wrap the bag in a thin towel. Try both heat and cold to see which works best. Use the method that feels best for 20 minutes several times a day. You may use acetaminophen or ibuprofen to ease pain, unless another pain medicine was prescribed. Note: If you have chronic liver or kidney disease, talk with your healthcare provider before taking these medicines. Also talk with your provider if you ve had a stomach ulcer or gastrointestinal bleeding. Use safe lifting methods. Don t lift anything heavier than 15 pounds until all of the pain is gone. Follow-up care Follow up with your healthcare provider, or as advised. You may need physical therapy or additional tests. If X-rays were taken, a radiologist will look at them. You will be told of any new findings that may affect your care. When to seek medical advice Call your healthcare provider right away if any of these occur: Pain gets worse even after taking prescribed medicine Weakness or numbness in 1 or both legs or hips Numbness in your groin or genital area You can t control your bowel or bladder Fever Redness or swelling over your back or spine [id number] [employer]. [address] [place] [address], [place] [address]. All rights reserved. This information is not intended as a substitute for professional medical care. Always follow your healthcare professional's instructions. Additional Information VACCINATE! IT SAVES LIVES! Members of the community who have not yet received the COVID-19 vaccine and would like to receive it can visit one of [facility] vaccine clinics. There are many vaccine clinic locations within the [facility]. For locations and available times, please visit [email or web address] [email or web address] It is important to note that some COVID mobile vaccine clinics are held outdoors and may be canceled in rainy or stormy conditions. To learn more about pediatric vaccinations (ages 5-11), we invite you to visit the [facility] webpage. [email or web address] To learn more about the COVID-19 vaccine, we invite you to visit the CDC website for a list of frequently asked questions. https://www.cdc.gov/coronavirus/ 2019-ncov/vaccines/faq.html [facility] Patient Portal Access Instructions: Stay connected with your healthcare team and access your personal medical information anytime with the [facility] Patient Portal. If you would like a full copy of your medical records please contact the [facility] Medical Records Department Monday through Monday between 8a.m. and 4:30p.m. Please follow the directions below to access the portal: 1.Access the email account you provided upon registration to the hospital.2.Look for an invitation email from [facility].3.Open the email and access the invitation link: Accept Invitation to [facility]4.Fill in the required smalls to create your account. To access your account, visit [email or web address] or scan the QR code above. Click the blue button labeled Access Patient Portal and then log in with the username and password that you created in the steps above. You can then view a summary of results, a summary of your visits, and the ability to download your summaries to your computer or send the information securely to a physician. Remember that your healthcare information is confidential, so carefully consider who you will allow to register on the [facility] Patient Portal for access to your information. You can also access the [facility] Patient Portal on the [employer]. Simply click on Health Records under Health Data and then click on the Knock Knock logo. HOW TO SAFELY DISPOSE OF PRESCRIPTION MEDICATIONS Please use one of the following methods to safely dispose of your unused medications. 1.Use a drug disposal kit: the drug disposal pouch allows you to safely discard your old and unused drugs. Ask your nurse to give you one when you are discharged.2.Visit a local take-back location: Many local pharmacies and police departments have programs that collect old and unwanted prescription drugs. Call your local pharmacy or go to http://[employer]/8G2Bd9y to find one close to you.3.Make use of household items: Use cat litter or old coffee grounds to dispose medications if other options are not available. Mix your drugs with these household products, seal them in an airtight container and throw it into the garbage. Call [facility]: [phone] to be sure your drugs can be disposed of in this way. Some medicines may require a different approach.4.Never flush your medications down the toilet. IF YOU HAVE BEEN PRESCRIBED AN OPIOIDS FOR PAIN If you have been prescribed an opioid (such as hydrocodone, oxycodone or morphine), it is critical to understand the possible side effects and risks of opioid pain medications. Even when taken as directed, opioids can have several side effects including: Tolerance, meaning you might need to take more of a medication for the same pain relief. Nausea, vomiting and/or constipation. Sleepiness, dizziness, dry mouth, confusion, depression or itching. Physical dependence, meaning you have withdrawal symptoms when a medication is stopped ? this can develop within a few days. KNOW YOUR RESPONSIBILITIES It is important to know exactly how much and how often to take the opioid pain medications you are prescribed. Never take opioids in higher amounts or more often than prescribed. Do not combine opioids with alcohol or other drugs that cause drowsiness, such as benzodiazepines, also known as benzos, including diazepam and alprazolam, muscle relaxants or sleep aids. Never sell or share prescription opioids. This is illegal. Store opioids in a secure place and out of reach of others (including children, family, friends and visitors). The last page(s) of this document has been signed and retained as a CHART COPY Signatures Patient Education Materials Sciatica Medication Leaflets My discharge plan and instructions have been reviewed and explained to me and ICORBY REBECCA understand my current condition and have read and understand these discharge instructions. I have received a written copy of the plan/instructions. If I have questions, I am aware that I should contact my doctor. Patient/Planner Signature: Date/Time: Relationship to Patient: Witness Name/Signature: Date/Time: [facility] 10-18-2024 Physician Emergency department Note HPI Chief Complaint Patient presents with Back Pain Lower back pain radiating into right leg for a couple days. Denies injury Patient with a history of peripheral vascular disease, peripheral neuropathy, and a left lower extremity amputation presents secondary to right lower extremity and right lower back.. States her symptoms have been present for several days. States the pain radiates throughout and down to her toes. Denies dysuria. Denies injury. Denies loss of bowel or bladder continence. Denies saddle anesthesia. 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 Constitutional: General: She is not in acute distress. Appearance: Normal appearance. She is normal weight. She is not ill-appearing, toxic-appearing or diaphoretic. HENT: Head: Normocephalic and atraumatic. Nose: Nose normal. No rhinorrhea. Neck: Comments: Trachea is midline Cardiovascular: Rate and Rhythm: Normal rate and regular rhythm. Pulses: Normal pulses. Heart sounds: No murmur heard. Pulmonary: Effort: Pulmonary effort is normal. Breath sounds: Normal breath sounds. No wheezing. Abdominal: General: Abdomen is flat. Bowel sounds are normal. There is no distension. Palpations: Abdomen is soft. Tenderness: There is no abdominal tenderness. Musculoskeletal: General: Tenderness present. No deformity. Cervical back: Normal range of motion. Right lower leg: No edema. Comments: The right lower extremity is warm to the touch. It is not hot. It is not cold. Patient can fully flex and extend at the knee and hip. There is no bony deformity. Mild generalized tenderness throughout without specific point tenderness. Skin: General: Skin is warm and dry. Findings: No rash. Neurological: General: No focal deficit present. Mental Status: She is alert and oriented to person, place, and time. Mental status is at baseline. Sensory: No sensory deficit. Psychiatric: Mood and Affect: Mood normal. Behavior: Behavior normal. Thought Content: Thought content normal. Judgment: Judgment normal. ED Course & MDM Diagnoses as of 10/18/241910 Peripheral vascular disease No data recorded Medical Decision Making Patient was medicated for pain while here in the ER. Based on her CTA findings I felt vascular surgery should be involved with disposition planning. I spoke to Dr. Nuñez who is on-call for vascular surgery for and she agreed with outpatient vascular follow-up. Patient will be prescribed a short course of tramadol and given outpatient referral for follow-up for vascular surgery as well as primary care. Return for any ongoing concerns. Procedure Procedures Vikram Szymanski DO 10/18/241900 [1] Past Medical History: Diagnosis Date Diabetes mellitus (Multi) Disease of thyroid gland Hyperlipidemia Peripheral arterial disease [2] History reviewed. No pertinent surgical history. [3] No family history on file. [4] Social History Tobacco Use Smoking status: Never Smokeless tobacco: Never Substance Use Topics Alcohol use: Never Drug use: Never Vikram Szymanski DO 10/18/241911 [facility] Work Phone: 10-18-2024 Emergency department Note HPI Chief Complaint Patient presents with Back Pain Lower back pain radiating into right leg for a couple days. Denies injury Patient with a history of peripheral vascular disease, peripheral neuropathy, and a left lower extremity amputation presents secondary to right lower extremity and right lower back.. States her symptoms have been present for several days. States the pain radiates throughout and down to her toes. Denies dysuria. Denies injury. Denies loss of bowel or bladder continence. Denies saddle anesthesia. 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 Constitutional: General: She is not in acute distress. Appearance: Normal appearance. She is normal weight. She is not ill-appearing, toxic-appearing or diaphoretic. HENT: Head: Normocephalic and atraumatic. Nose: Nose normal. No rhinorrhea. Neck: Comments: Trachea is midline Cardiovascular: Rate and Rhythm: Normal rate and regular rhythm. Pulses: Normal pulses. Heart sounds: No murmur heard. Pulmonary: Effort: Pulmonary effort is normal. Breath sounds: Normal breath sounds. No wheezing. Abdominal: General: Abdomen is flat. Bowel sounds are normal. There is no distension. Palpations: Abdomen is soft. Tenderness: There is no abdominal tenderness. Musculoskeletal: General: Tenderness present. No deformity. Cervical back: Normal range of motion. Right lower leg: No edema. Comments: The right lower extremity is warm to the touch. It is not hot. It is not cold. Patient can fully flex and extend at the knee and hip. There is no bony deformity. Mild generalized tenderness throughout without specific point tenderness. Skin: General: Skin is warm and dry. Findings: No rash. Neurological: General: No focal deficit present. Mental Status: She is alert and oriented to person, place, and time. Mental status is at baseline. Sensory: No sensory deficit. Psychiatric: Mood and Affect: Mood normal. Behavior: Behavior normal. Thought Content: Thought content normal. Judgment: Judgment normal. ED Course & MDM Diagnoses as of 10/18/241910 Peripheral vascular disease No data recorded Medical Decision Making Patient was medicated for pain while here in the ER. Based on her CTA findings I felt vascular surgery should be involved with disposition planning. I spoke to Dr. Nuñez who is on-call for vascular surgery for and she agreed with outpatient vascular follow-up. Patient will be prescribed a short course of tramadol and given outpatient referral for follow-up for vascular surgery as well as primary care. Return for any ongoing concerns. Procedure Procedures Vikram Szymanski DO 10/18/241900 [1] Past Medical History: Diagnosis Date Diabetes mellitus (Multi) Disease of thyroid gland Hyperlipidemia Peripheral arterial disease [2] History reviewed. No pertinent surgical history. [3] No family history on file. 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 Autumn Whitt MD Status: REG ER Study:Tibia & Fibula 2 Views Date of Exam: 08/30/24 Exam# [id number] Ordering Dr: Sergio Vogel DO EXAM: Right tib fib radiographs CLINICAL HISTORY: Trauma COMPARISON: None TECHNIQUE: Two views of the right tibia and fibula RAD/Tibia & Fibula 2 Views IMPRESSION: No acute fracture or dislocation. Chronic appearing deformity of the distal fibula may be sequelae of prior injury. No acute soft tissue abnormalities. No radiographic foreign body. Reading Location: [id number] CC: Dr. Autumn Whitt MD; Dr. Sergio Vogel DO ~ Polisher Brass: Signed [facility] 08-30-2024 Radiology Diagnostic study note [facility] Imaging Services [address] [place] [address] HIP, UNI W/ Pelvis 2-3 Views MR#: [id number] Acct: [id number] Name: VENANCIO FOREMAN Rep #: : 1985 F 38 From: Jonas Brown MD PCP: Dr. Autumn Whitt MD Status: [facility] ER Study:HIP, UNI W/ Pelvis 2-3 Views Date of Ex am: 08/30/24 Exam# [id number] Ordering Dr: Sergio Vogel DO PROCEDURE: HIP, UNI W/ PELVIS 2-3 VIEWS 08/30/2024 REASON FOR EXAM: INJURY/PAIN TECHNIQUE: 3 views of the right hip. COMPARISON: None. FINDINGS: No evidence of acute fracture or dislocation. No acute soft tissue abnormalities. RAD/HIP, UNI W/ Pelvis 2-3 Views IMPRESSION: NO ACUTE FRACTURE OR DISLOCATION. If acute hip fracture is suspected after a fall or minor trauma and initial radiographs are negative then MRI of the pelvis and affected hip without IV contrast or CT of the pelvis and hips without IV contrast is usually appropriate as the next imaging study. (ACR Appropriateness Criteria: Acute Hip Pain-Suspected Fracture 2018) Reading Location: [id number] CC: Dr. Autumn Whitt MD; Dr. Sergio Vogel DO ~ Polisher Brass: Signed [facility] 08-30-2024 Radiology Diagnostic study note [facility] Imaging Services [address] [place], [place] [id number] [phone] [phone] min 2 Views MR#: [id number] Acct: [id number] Name: VENANCIO FOREMAN Rep #: : 1985 F 38 From: Jonas Brown MD PCP: Dr. Autumn Whitt MD Status: REG ER Study:Shoulder min 2 Views Date of Exam: 08/30/24 Exam# [id number] Ordering Dr: Sergio Vogel DO PROCEDURE: SHOULDER MIN 2 VIEWS 08/30/2024 REASON FOR EXAM: INJURY/PAIN TECHNIQUE: Five views of the right shoulder. COMPARISON: None. FINDINGS: No evidence of acute fracture or dislocation. The joint spaces are maintained. The soft tissues are unremarkable. RAD/Shoulder min 2 Views IMPRESSION: No acute osseous abnormality. Reading Location: [id number] CC: Dr. Autumn Whitt MD; Dr. Sergio Vogel DO ~ Polisher Brass: Signed [facility] 08-30-2024 Radiology Diagnostic study note [facility] Imaging Services [address] [place] [address] [id number] Spine Cervical without Contras MR#: [id number] Acct: [id number] Name: VENANCIO FOREMAN Rep #: [id number] : 1985 F 38 From: Jonas Brown MD PCP: Dr. Autumn Whitt MD Status: REG ER Study:Spine Cervical without Contras Date of Exam: 08/30/24 Exam# [id number] Ordering Dr: Sergio Vogel DO PROCEDURE: SPINE CERVICAL WITHOUT CONTRAS 08/30/2024 REASON FOR EXAM: INJURY/PAIN TECHNIQUE: Cervical spine CT without contrast. Coronal and Sagittal reconstruction series were provided. One or more dose reduction techniques were used (e.g., Automated exposure control, adjustment of the mA and/or kV according to patient size, use of iterative reconstruction technique RADIATION DOSE SUMMARY: CTDlvol: 22.72 mGy DLP: 449.54 mGycm COMPARISON: 02/28/2024 FINDINGS: No evidence of acute fracture or dislocation. Vertebral body heights are maintained. Mild discogenic degenerative changes of the visualized spine. The prevertebral soft tissues are unremarkable. CT/Spine Cervical without Contras IMPRESSION: NO ACUTE CERVICAL FRACTURE Reading Location: [id number] CC: Dr. Autumn Whitt MD; Dr. Sergio Vogel, DO ~ Polisher Brass: Signed [facility] 07-15-2024 Evaluation note Diagnosis Onset Date Resolution Depression with anxiety acute A pril 2024 7:57am Hypothyroidism chronic July 7:57am Neuropathy chronic July 15 7:57am Type 1 diabetes mellitus chronic July 15, 2024 7:57am Peripheral artery disease deleted July 15, 2024 7:57am Non-compliance noneactive July 7:57am Screening for malignant neoplasm of cervix noneactive July 15, 7:57am Mixed hyperlipidemia noneactive Apri l 2024 7:57am Essential hypertension noneactive Ap ril 2024 7:57am [facility] Work Phone: 1(470) 253-326604-14-2025 Evaluation note* Diagnosis Onset Date Resolution Status Admit Date Depression with anxiety acute A pril 2024 7:57am Hypothyroidism chronic July 7:57am Type 1 diabetes mellitus chronic July 15, 2024 7:57am Neuropathy deleted July 15 7:57am Peripheral artery disease deleted July 15, 2024 7:57am Non-compliance noneactive July 7:57am Screening for malignant neop lasm of cervix noneactive July 15, 2024 7:57am Mixed hyperlipidemia noneactive Apri l 2024 7:57am Essential hypertension noneactive Ap ril 2024 7:57am High blood triglycerides chronic August 15, 2024 2:41pm HTN (hypertension) chronic August 152024 2:41pm Hypothyroidism chronic August 15, 2024 2:41pm Insulin pump titration chronic 2024 2:41pm Microalbuminuria due to type 1 diabetes mellitus chronic August 15, 2024 2:41pm Overweight chronic August 15, 2024 2:41pm 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 August 15, 2024 2:41pm Presence of insulin pump chronic August 15, 2024 2:41pm Type 1 diabetes mellitus chronic August 15, 2024 2:41pm [facility] Work Phone: 1(300) 724-136004-14-2025 Evaluation note* Diagnosis Onset Date Resolution Status Admit Date Depression with anxiety acute A pril 2024 7:57am Hypothyroidism chronic July 7:57am Peripheral artery disease chronic July 15, 2024 7:57am Type 1 diabetes mellitus chronic July 15, 2024 7:57am Neuropathy deleted July 15 7:57am Non-compliance noneactive July 7:57am Screening for malignant neoplasm of cervix noneactive July 15, 2 025 7:57am Mixed hyperlipidemia noneactive Apri l 2024 7:57am Essential hypertension noneactive Ap ril 2024 7:57am High blood triglycerides chronic August 15, 2024 2:41pm HTN (hypertension) chronic August 152024 2:41pm Hypothyroidism chronic August 15, 2024 2:41pm Insulin pump titration chronic 2024 2:41pm Microalbuminuria due to type 1 diabetes mellitus chronic August 15, 2024 2:41pm Overweight chronic August 15, 2024 2:41pm 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 August 15, 2024 2:41pm Presence of insulin pump chronic August 15, 2024 2:41pm Type 1 diabetes mellitus chronic August 15, 2024 2:41pm Depression with anxiety acute A ugust 2024 10:58am Hypothyroidism chronic November 10:58am Peripheral artery disease chronic November 01, 2024 10:58am Type 1 diabetes mellitus chronic November 01, 2024 10:58am Neuropathy deleted November 01 10:58am Non-compliance noneactive November 10:58am Mixed hyperlipidemia noneactive Augu st 2024 10:58am Essential hypertension noneactive Au kelsey 2024 10:58am [facility] Work Phone: 1(346) 933-180701-13-2025 [facility] ACCOUNT SEX AGE ADMIT DISCHARGE PT MED. RECORD# NUMBER DATE DATE TYPE CORBY, [id number] F 38 04/10/24 2 VENANCIO Nathen [id number] ROOM: 303MO DATE OF : [birth year] DICTATING PHYSICIAN: Shy Gant The patient was not seen by me, and admitted from the ER last night. HISTORY OF PRESENT ILLNESS: This is a 38-year-old lady who presented to the emergency room for chest pain. The patient reported to have multiple risk factors, and she was admitted to rule out and stress testing. The patient did receive Dilaudid, and since admission, she wanted more pain medication stating chest pain at 8/10. We did find the patient to have a negative reaction to morphine in the past. We did try tramadol first and then Tylenol. The patient kept insisting that the medicine is not working, and she needs Dilaudid. IMPRESSION/PLAN: When they discussed this with me, I explained truly with her morphine allergy and her chest pain that we have to worry about her cardiac status first. The patient signed herself AMA and left the hospital at that point without performing any of her recommended testing. Dictated By: Shy Gant MD 04/11/24 11:01 JOB #: [id number] Transcribed By: am 04/11/24 11:30 Electronically signed by: E-Sign: SHY GANT MD 04/15/24 10:42 Update to H&P: [ ] No changes: I have examined the patient and reviewed the H&P and there are no changes. [ ] As previously dictated with the following changes: ____ Page 1 of 2 VENANCIO FOREMAN History & Physical VENANCIO FOREMAN :1985 ____ ____ PHYSICIAN SIGNATURE: TIME: DATE: Page 2 of 2 VENANCIO FOREMAN N [facility] NoteDischarge Instructions Discharge Summary [address] [address] [id number] 04/10/2024 Patient: VENANCIO FOREMAN Sex: Female : 1985 Age: 38y Thank you for visiting [facility]. You have been evaluated today by Brayden Hernandez D.O. for the following condition(s): Principal Diagnosis Chest pain. Type 1 diabetes. Hypertension. Patient Signature Facility Planner Date/Time General Instructions with [address] [address] [id number] 04/10/2024 Patient: VENANCIO FOREMAN Sex: Female : 1985 Age: 38y Thank you for visiting [facility]. You have been evaluated today by Brayden Hernandez D.O. for the following condition(s): 1 of 6 Discharge Instructions Principal Diagnosis Chest pain. Type 1 diabetes. Hypertension. Discharge Summary [address] [address] [id number] 04/10/2024 Patient: VENANCIO FOREMAN Sex: Female : 1985 Age: 38y Thank you for visiting [facility]. You have been evaluated today by Brayden Hernandez D.O. for the following condition(s): Principal Diagnosis (Patient has a left adrenal adenoma). Patient Signature Facility Planner Date/Time General Instructions with [address] [address] [id number] 04/10/2024 2 of 6 Discharge Instructions Patient: VENANCIO FOREMAN Sex: Female : 1985 Age: 38y Thank you for visiting [facility]. You have been evaluated today by Brayden Hernandez D.O. for the following condition(s): Principal Diagnosis (Patient has a left adrenal adenoma). Discharge Summary [address] [address] [id number] 04/10/2024 Patient: VENANCIO FOREMAN Sex: Female : 1985 Age: 38y Thank you for visiting [facility]. You have been evaluated today by Jerri Berrios D.O. for the following condition(s): Principal Diagnosis Chest pain characterized as discomfort. You have been given the following additional information: Uncertain Causes of Chest Pain Patient Signature Facility Planner Date/Time 3 of 6 Discharge Instructions General Instructions with [address] [address] [id number] 04/10/2024 Patient: VENANCIO FOREMAN Sex: Female : 1985 Age: 38y Thank you for visiting [facility]. You have been evaluated today by Jerri Berrios D.O. for the following condition(s): Principal Diagnosis Chest pain characterized as discomfort. ADDITIONAL INFORMATION Uncertain Causes of Chest Pain Chest pain can happen for a number of reasons. Sometimes the cause can't be determined. If your condition does not seem serious, and your pain does not appear to be coming from your heart, your healthcare provider may recommend watching it closely. Sometimes the signs of a serious problem take more time to appear. Many problems not related to your heart can cause chest pain. These include: 4 of 6 Discharge Instructions Musculoskeletal. Costochondritis is an inflammation of the tissues around the ribs that can occur from trauma or overuse injuries, or a strain of the muscles of the chest wall Respiratory. Pneumonia, collapsed lung (pneumothorax), or inflammation of the lining of the chest and lungs (pleurisy) Gastrointestinal. Esophageal reflux, heartburn, ulcers, or gallbladder disease Anxiety and panic disorders Nerve compression and inflammation Rare miscellaneous problems such as aortic aneurysm (a swelling of the large artery coming out of the heart) or pulmonary embolism (a blood clot in the lungs) Home care After your visit, follow these recommendations: Rest today and avoid strenuous activity. Take any prescribed medicine as directed. Be aware of any recurrent chest pain and notice any changes Follow-up care Follow up with your healthcare provider if you do not start to feel better within 24 hours, or as advised. Call 911 Call 911 if any of these occur: A change in the type of pain: if it feels different, becomes more severe, lasts longer, or begins to spread into your shoulder, arm, neck, jaw or back Shortness of breath or increased pain with breathing Weakness, dizziness, or fainting Rapid heart beat Crushing sensation in your chest When to seek medical advice Call your healthcare provider right away if any of the following occur: 5 of 6 Discharge Instructions Cough with dark colored sputum (phlegm) or blood Fever of 100.4F (38C) or higher, or as d (more content not included)...[facility]10-15-2024 NoteDischarge Instructions Discharge Summary [address] [address] [id number] 01/15/2024 Patient: VENANCIO FOREMAN Sex: Female : 1985 Age: 38y Thank you for visiting [facility]. You have been evaluated today by Pavel Qureshi D.O. for the following condition(s): Principal Diagnosis Contusion to the right hip. INSTRUCTIONS Apply ice. Prescription Medications: Medications prescribed: Celebrex. Celebrex 200 mg capsule: Take 1 capsule by mouth twice a day for 5 days, dispense 10 capsule. Refills 0. Pharmacy: [facility] [id number] [place] [address]. Follow-up: Follow up with your healthcare provider in two days. Call for an appointment. You have been given the following additional information: Soft Tissue Bruise (Contusion) 1 of 3 Discharge Instructions Patient Signature Facility Planner Date/Time General Instructions with ExitWriter [address] [address] [id number] 01/15/2024 Patient: VENANCIO FOREMAN Sex: Female : 1985 Age: 38y Thank you for visiting [facility]. You have been evaluated today by Pavel Qureshi D.O. for the following condition(s): Principal Diagnosis Contusion to the right hip. INSTRUCTIONS Apply ice. Prescription Medications: Medications prescribed: Celebrex. Celebrex 200 mg capsule: Take 1 capsule by mouth twice a day for 5 days, dispense 10 capsule. Refills 0. Pharmacy: [facility] [id number] [place] [address]. Follow-up: Follow up with your healthcare provider in two days. Call for an appointment. 2 of 3 Discharge Instructions ADDITIONAL INFORMATION Soft Tissue Bruise (Contusion) You have a bruise (contusion). There is swelling and some bleeding under the skin. This injury generally takes a few days to a few weeks to heal. During that time, the bruise will typically change in color from reddish, to purple-blue, to greenish-yellow, then to yellow-brown. Home care Elevate the injured area to reduce pain and swelling. As much as possible, sit or lie down with theinjured area raised about the level of your heart. This is especially important during the first 48 hours. Ice the injured area to help reduce pain and swelling. Wrap an ice pack in a thin towel. Apply to the bruised area for 20 minutes every 1 to 2 hours the first day. Continue this 3 to 4 times a day until the pain and swelling goes away. You can make an ice pack by placing ice cubes in a plastic bag. Unless another medicine was prescribed, you can take acetaminophen, ibuprofen, or naproxen to control pain. Talk with your doctor before using these medicines if you have chronic liver or kidney disease or ever had a stomach ulcer or digestive bleeding. Follow-up care Follow up with your healthcare provider, or as advised. Call if you are not better in 1 to 2 weeks. When to seek medical advice Call your healthcare provider right away if you have any of the following: Increased pain or swelling Bruise is on an arm or leg and arm or leg becomes cold, blue, numb or tingly Signs of infection: Warmth, drainage, or increased redness or pain around the contusion Inability to move the injured area or body part Bruise is near your eye and you have problems with your eyesight or eye Frequent bruising for unknown reasons [address]03-03-2024 Discharge summary Author Marquez Benz [facility] June 04, 2023 1:25pm Note Date/Time June 04, 2023 10:0 4am [facility] Medical Records Department [address] [place] [address] Emergency Department Summary 06/04/23 MR#: [id number] Acct: [id number] Name: VENANCIO FOREMAN Rep #:[id number] : 1985 37 From: Marquez Benz MD PCP: [facility] atus:REG ER Location: ED HPI History of Present Illness Chief Complaint: Headache Detail of Chief Complaint: Headache for approximately 2 months Informant: patient Onset/Context/Timing Onset: Month(s) Context: Sudden Timing: Waxes and wanes Quality -Headache: Positive for Other (Pain frontal and occipital area); Negative for Similar Prior Headaches, Sharp, Dull, Throbbing, Tightness or Burning Location: Occipital and frontal Current Severity: Moderate Maximum Severity: Severe Worsened by: Nothing specific Relieved by: Nothing Associated Symptoms/Injury Associated Symptoms: Positive for Nausea; Negative for Fever, Vomiting, Sore Throat, Sinus Pressure, Numbness, Tingling, Preceding Aura, Visual Changes, Blurred Vision, Photophobia or Visual Loss Injury - EMMANUEL: Negative for Direct Trauma Narrative Narrative: Patient is a 37-year-old woman with history of hypercoagulopathy on Coumadin. INR has not been assessed in the month. She presents with headache for 1 to 2 months. It is located in the frontal occipital area. Described as pain. Thereare no alleviating or exacerbating factors. Nothing that she can recall precipitated this. She states she does have a history of migraines. Has not had a headache in years. She is on Coumadin. To her knowledge she has had no significant or insignificant head trauma. She denies ringing or ears decreased hearing. She denies light sensitivity. She denies trouble speech or swallowing. She denies neck pain. She denies paresthesia or anesthesia upper extremities or right lower extremity. 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 She denies nausea, vomiting or diarrhea. She denies cardiac or respiratory symptoms. She denies black or maroon-colored stool. She denies chest pain or shortness of breath. Patient does complain of left shoulder pain. She fell last evening. [place]. She does not recall hitting her head and denies any change in the headache after the fall. Prior similar symptoms: No Recent Illness/Hospitalization: No PFSH PFS Medical History Abnormal angiogram Anemia Anxiety Bipolar disorder Chronic anticoagulation Depression Diabetes DVT (deep venous thrombosis) Former smoker GERD (gastroesophageal reflux disease) Headache HTN (hypertension) Hyperlipidemia Migraines Peripheral artery disease Type 1 diabetes mellitus Home Medications aspirin 81 mg tablet,delayed release (Adult Low Dose Aspirin) 81 mg PO DAILY 30 days #30 tabs 03/14/23 [Rx Last Taken Unknown] atorvastatin 40 mg tablet 40 mg PO DAILY 30 days #30 tabs 03/14/23 [Rx Last Taken Unknown] blood sugar diagnostic (Blood Glucose Test strips) #50 ea 03/14/23 [Rx Last Taken Unknown] insulin syr/ndl U100 half jesús 0.3 mL 30 gauge x 1/2 #100 ea 03/14/23 [Rx Last Taken Unknown] lancets 30 gauge #120 units 03/14/23 [Rx Last Taken Unknown] metoprolol succinate 100 mg tablet,extended release 24 hr (Toprol XL) 100 mg PO DAILY 30 days #30 tabs 03/14/23 [Rx Last Taken Unknown] pregabalin 300 mg capsule 300 mg PO BID 30 days #60 caps 03/14/23 [Rx Last Taken Unknown] zolpidem 10 mg tablet 10 mg PO QHS PRN insomnia 30 days #30 tabs 03/14/23 [Rx Last Taken Unknown] warfarin 5 mg tablet 5 mg PO DAILY #30 tabs 04/23/23 [Rx Last Taken Unknown] pantoprazole 40 mg granules delayed-release for susp in packet 40 mg PO BID 05/14/23 [History Last Taken Unknown] insulin glargine-yfgn 100 unit/mL (3 mL) subcutaneous pen 35 unit (0.35 mL) subcut BIDCM #0 mL 05/15/23 [Rx Last Taken Unknown] insulin lispro 100 unit/mL subcutaneous pen (Humalog KwikPen (U-100) Insulin) 35unit (0.35 mL) subcut TID #15 mL 05/15/23 [Rx Last Taken Unknown] warfarin 10 mg tablet 10 mg PO DAILY #30 tabs 06/04/23 [Rx Last Taken Unknown] Allergy/AdvReac Type Severity Reaction Status Date / Time morphine Allergy Intermediate Rash Verified 06/04/23 09:43 orange Allergy Rash Verified 06/04/23 09:43 Family History Other Cancer Surgical History S/P BKA (below knee amputation) unilateral Social History (Updated 06/04/23 @ 10:[address] Marquez Benz MD) household members: spouse and children Smoking Status: Former smoker ROS ROS ED Constitutional Constitutional ED: Denies chills, fever(s), subjective, sweats or weight loss Eyes Eyes: Denies blurry vision, change in vision or diplopia ENT ENT ED: Reports other Details: Denies epistaxis, bleeding gums or dental trauma.; Denies ear pain, rhinorrhea or sore throat Cardiovascular Cardiovascular: Denies chest pain or palpitations Respiratory/Chest Respiratory/Chest: Denies cough, dyspnea or dyspnea on exertion Gastrointestinal Gastrointestinal: Denies abdominal pain, melena, nausea or vomiting Genitourinary Genitourinary ED: Denies dysuria or hematuria Musculoskeletal Musculoskeletal: Reports other Details: Pain left shoulder region ; Denies arthralgias, back pain, myalgias or neck pain Integumentary Denies Abrasions or rash Neurologic Neurologic: Reports headache(s); Denies paresthesias or weakness Endocrine Endocrinology: Denies polydipsia or polyphagia Hematologic/Lymphatic Hematologic/Lymphatic: Reports easy bruising; Denies easy bleeding EXAM Physical Exam Const Vital Signs: 06/04/23 09:42 06/04/23 11:18 06/04/23 13:09 Temperature 97.9 F Temperature Source Temporal Pulse Rate 85 77 82 Respiratory Rate 14 16 16 Blood Pressure 174/92 H 153/75 H 135/81 H Blood Pressure Mean 119 101 99 Pulse Ox 100 97 97 Oxygen Delivery Method Room Air Room Air Room Air Positive well nourished and well developed Constitutional Narrative: Patient does not appear well. General Appearance ED: well developed, NAD and pallor; Negative for cyanotic or diaphoretic HEENT Reports normocephalic, TM's clear and moist mucous membranes HEENT Narrative: There is no septal deviation hematoma. There is no evidence of dental trauma. Posterior pharynx is normal. There is no TMJ tenderness. There is no posteriormidline neck pain. atraumatic Tympanic Membrane ED: Yes TM's clear Eyes PERRL and EOMs intact bilaterally Eyes Narrative: There is no nystagmus. There is no subconjunctival hemorrhage. General Eye ED: Negative for pale conjunctiva or scleral icterus Neck no lymphadenopathy, supple and no meningeal signs Resp normal respiratory effort and clear to auscultation bilaterally Cardio regular rate, regular rhythm, S1 normal heart sound, S2 normal heart sound and no murmurs GI non-tender and non-distended Auscultation: normoactive bowel sounds Palpation: soft Back/Spine no CVA tenderness Cervical Spine: Negative for cervical spine tenderness Extremity normal to inspection, full ROM and normal capillary refill Extremity Narrative: There is pain outpatient over the clavicle. There is no pain ovation over the proximal humerus. Axillary, median, radial and ulnar function intact. Radial pulses 2+. There is no evidence of trauma to the left upper extremity or chest wall. Patient has prosthesis left lower extremity due to arterial occlusion. Neuro oriented x3, CN's II-XII intact bilaterally and no sensory deficits noted [place] Coma Scale: document GCS findings Spontaneous Obeys Commands Oriented 15 Sensorium / Orientation: awake and alert Motor Exam: strength 5/5 throughout Psych Mood & Affect: depressed Skin General Skin Exam: elasticity normal, turgor normal and pallor; Negative for jaundice Lesions: no lesions Rashes: no rashes MDM MDM MDM Narrative Medical decision making narrative: Since patient is on Coumadin will obtain PT/INR compared to prior level on record. Because of the headache for 1 to 2 months with history of falls on anticoagulant will obtain CT of the head to evaluate for subdural hematoma, intraparenchymal contusion and traumatic subarachnoid hemorrhage. If there is no evidence intracranial bleed will treat with meds for headache. Patient was made NPO. Prior records reviewed. History & Record Review Additional record(s) reviewed:: Prior outpatient record, Prior ED visit and Prior labs Lab Data Labs: Laboratory Results - last 24 hr 06/04/23 10:22 PT 11.5 L INR 0.8 Sodium 133 L Potassium 4.3 Chloride 99 Carbon Dioxide 29.0 Anion Gap 5 BUN 13 Creatinine 0.83 Estim Creat Clear Calc 98.81 Est GFR (MDRD) Af Amer 99 Est GFR (MDRD) Non-Af 82 BUN/Creatinine Ratio 15.6 Glucose 423 H Calcium 9.4 Radiography Diagnostic Testing: Clinical Impression(s) from Imaging Studies Brain CT 06/04/23 09:56 IMPRESSION: No acute intracranial abnormality. No hydrocephalus Electronically Signed: Sarwat Joseph MD at 11:04 EST , Treatment and Re-Evaluation Narrative: CAT scan was reviewed by me. There is no Insa subdural, epidural, traumatic subarachnoid hemorrhage or intraparenchymal contusion. In light of this meds for vascular headache or entered i.e. Reglan, Benadryl and ketorolac. Patient'srenal function is normal. Blood sugar is elevated 423. Will administer 1 L of normal saline and subcu insulin. Because patient's PT/INR is normal will treat with Imitrex subcu. Patient was reassessed at 1228. She had to be awakened. Upon awakening she says her headache is no better. Patient was reassessed at 1319. She is awake. She is texting. She reports herheadache is markedly better. She was informed that her PT/INR is subtherapeutic. She states she was on 50 mg. She was decreased to 5 mg by the practitioner that saw her at [facility]. She states she only has a couple pills left. Plan is to increase to 10 mg and have PT/INR checked later this week. Discharge Plan Triage Chief Complaint: Headache ED Provider: Marquez Benz Dx/Rx/DC Orders Clinical Impression: Intractable migraine without aura and with status migrainosus, Anticoagulant long-term use, Hyperlipidemia, History of peripheral arterial disease, Type 1 diabetes mellitus, Elevated blood pressure reading in office without diagnosis of hypertension Instructions: ED Diabetic Hyperglycemia, ED Hypertension, To Be Confirmed, ED, Migraine (Classical) Prescriptions: New warfarin 10 mg tablet 10 mg PO DAILY Qty: 30 0RF No Action (DME) lancets 30 gauge misc See Rx Instructions .Route Qty: 120 0RF Rx Instructions: As directed (DME) Blood Glucose Test Strip See Rx Instructions .Route Qty: 50 3RF Rx Instructions: As directed (DME) insulin syr/ndl U100 half jesús 0.3 mL 30 gauge x 1/2 syringe See Rx Instructions .Route Qty: 100 0RF Rx Instructions: As directed atorvastatin 40 mg tablet 40 mg PO DAILY 30 Days Qty: 30 0RF metoprolol succinate [Toprol XL] 100 mg tablet extended release 24 hr 100 mg PO DAILY 30 Days Qty: 30 0RF aspirin [Adult Low Dose Aspirin] 81 mg tablet,delayed release (DR/EC) 81 mg PO DAILY 30 Days Qty: 30 0RF zolpidem 10 mg tablet 10 mg PO QHS PRN (Reason: insomnia) 30 Days Qty: 30 0RF pregabalin 300 mg capsule 300 mg PO BID 30 Days Qty: 60 0RF warfarin 5 mg tablet 5 mg PO DAILY Qty: 30 0RF pantoprazole [address] for susp in packet 40 mg PO BID insulin glargine-yfgn 100 unit/mL (3 mL) Insulin Pen 35 unit subcut BIDCM Qty: 0 0RF insulin lispro [Humalog KwikPen Insulin] 100 unit/mL insulin pen 35 unit subcut TID Qty: 15 0RF Primary Care Provider: [facility] Bautista [facility] - [facility]-5 Days Activity Restrictions/Additional Instructions: 1. Contact [facility] tomorrow to be seen later in the week for for blood pressure recheck and PT/INR. Disposition Disposition: Home, Self Care What to do if you have Problems For any increased pain, shortness of breath, bleeding, nausea or vomiting, chestpain, or any unexpected problems, contact your Primary Care Provider. Call [facility] ([phone]) or report to the closest Emergency Room. Call 911 if necessary. 06/04/23 1328 <Electronically signed by Marquez Benz MD> Cosigner Signature (if applicable): CC: [facility] ~ Signed [facility] Work Phone: 1(919) 818-124302-11-2024 History and physical note Author Annemarie Rizzo [facility] May 14, 2023 5:39pm Note Date/Time May 14, 2023 5:37pm [facility] Medical Records Department [address] [place] [address] H&P Exam - Hospitalist 05/14/23 1730 MR#: [id number] Acct: [id number] Name: VENANCIO FOREMAN Rep #:[id number] : 1985 37 From: Annemarie Rizzo MD PCP: 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 Reports she has had headache consistent with her migraines and some mild discomfort in right foot, CT head negative and right lower extremity with good pulses and no significant abnormalities but patient found aurora in DKA with an anion gap of 16, glucose of 729 and small acetone so hospitalist contacted for admission for DKA. Patient evaluated at bedside and reports that she has a headache that is similar to her usual migraines with somelight sensitivity and nausea, also has been having some intermittent pain in herright foot since yesterday mostly into her right big toe and was concerned due to her loss of her left limb from peripheral arterial disease. Does report the sensor of her pump broke so she has been bolusing herself with insulin with no basal and is not sure what a typical regimen for her is like. Supposed to establish with Endo next month and vascular next month. Denies any other acute complaints. [facility] Medical History (Updated 05/14/23 @ 17:[address] Annemarie Rizzo MD) Abnormal angiogram Chronic anticoagulation DVT (deep venous thrombosis) HTN (hypertension) Hyperlipidemia Peripheral artery disease Type 1 diabetes mellitus Home Medications aspirin 81 mg tablet,delayed release (Adult Low Dose Aspirin) 81 mg PO DAILY 30 days #30 tabs 03/14/23 [Rx Last Taken Unknown] atorvastatin 40 mg tablet 40 mg PO DAILY 30 days #30 tabs 03/14/23 [Rx Last Taken Unknown] blood sugar diagnostic (Blood Glucose Test strips) #50 ea 03/14/23 [Rx Last Taken Unknown] insulin syr/ndl U100 half jesús 0.3 mL 30 gauge x 1/2 #100 ea 03/14/23 [Rx Last Taken Unknown] lancets 30 gauge #120 units 03/14/23 [Rx Last Taken Unknown] metoprolol succinate 100 mg tablet,extended release 24 hr (Toprol XL) 100 mg PO DAILY 30 days #30 tabs 03/14/23 [Rx Last Taken Unknown] pregabalin 300 mg capsule 300 mg PO BID 30 days #60 caps 03/14/23 [Rx Last Taken Unknown] zolpidem 10 mg tablet 10 mg PO QHS PRN insomnia 30 days #30 tabs 03/14/23 [Rx Last Taken Unknown] warfarin 5 mg tablet 5 mg PO DAILY #30 tabs 04/23/23 [Rx Last Taken Unknown] pantoprazole 40 mg granules delayed-release for susp in packet 40 mg PO BID 05/14/23 [History Last Taken Unknown] Allergy/AdvReac Type Severity Reaction Status Date / Time morphine Allergy Intermediate Rash Verified 04/13/23 15:55 orange Allergy Rash Verified 04/13/23 15:55 Family History Other Cancer Surgical History (Updated 05/14/23 @ 16:[address] Jared Condon MD) S/P BKA (below knee amputation) unilateral Social History Smoking Status: Former smoker ROS ROS Narrative General: Denies fever/chills HENT: Has migraine with some light sensitivity, denies stuffy nose, denies sore throat EYES: Chronic problems with vision Resp: Denies cough, denies shortness of breath Cardiac: Denies chest pain GI: Denies abdominal pain, denies changes in bowel, has some nausea with her headache : Denies changes in urination Extremity: Denies swelling MSK: Left lower extremity amputation, some intermittent pain in right foot primarily into the toe Neuro: Denies any numbness/tingling Heme: Denies any bleeding or bruising Skin: Denies rashes Psychiatric: No complaints voiced Vital Signs Vital Signs Vital Signs: 05/14/23 14:21 05/14/23 16:44 Temperature 96.3 F L Temperature Source Temporal Pulse Rate 114 H 88 Respiratory Rate 16 17 Blood Pressure 150/99 H 150/88 H Blood Pressure Mean 116 108 Pulse Ox 99 99 Oxygen Delivery Method Room Air Weight Weight: 76.975 kg Body Mass Index (BMI) 27.3 Physical Exam Narrative General: Alert, oriented, resting in bed with lights off HEENT: Atraumatic, normocephalic Eyes: Anicteric, normal conjunctiva, extraocular movements grossly intact Neck: Supple Respiratory: Clear to auscultation bilaterally, normal respiratory effort Cardiovascular: Slightly tachycardic GI: Soft, little bit of left-sided abdominal tenderness no rebound, guarding, rigidity, nondistended Extremities: No edema Musculoskeletal: Left lower extremity amputation, right lower extremity warm, palpable pulses Neuro: No overt focal neurological deficits Skin: No rashes appreciated Psych: Cooperative Results Lab / Micro Data 05/14/23 15:08 05/14/23 15:08 Labs: Laboratory Results - last 24 hr 05/14/23 15:08: WBC 8.6, RBC 5.22, Hgb 14.9, Hct 40.0, MCV 76.6 L, MCH 28.5, MCHC 37.3 H, RDW Std Deviation 35.1, RDW Coeff of Gerard 12.8, Plt Count 249, MPV 11.7, Immature Gran % (Auto) 0.300, Neut % (Auto) 72.5 H, Lymph % (Auto) 21.4, [place] % (Auto) 4.4, Eos % (Auto) 0.8, Baso % (Auto) 0.6, Absolute Neuts (auto) 6.2, Absolute Lymphs (auto) 1.84, Nucleated RBC % 0, Sodium 135 L, Potassium 5.0, Chloride 99, Carbon Dioxide 20.0 L, Anion Gap 16 H, BUN 19 H, Creatinine 1.20 H, Estim Creat Clear Calc 67.91, Est GFR (MDRD) Af Amer 65, Est GFR (MDRD) Non-Af 54 L, BUN/Creatinine Ratio 15.8, Glucose 729 H*, Calcium 8.9, Acetone Level SMALL H 05/14/23 15:48: PT Cancelled, INR Cancelled 05/14/23 16:10: PT 11.6 L, INR 0.9 05/14/23 16:57: POC Glucose > 500 H* Imaging Radiology Impression Brain CT 05/14/23 14:56 IMPRESSION: Negative head/brain CT without intravenous contrast. Electronically Signed: Hardik Tucker MD at 15:46 EST , Assessment & Plan Assessment/Plan (1) Diabetic keto-acidosis: (2) Type 1 diabetes mellitus: (3) History of peripheral arterial disease: (4) History of below-knee amputation of left lower extremity: (5) Headache: (6) Chronic anticoagulation: (7) DVT (deep venous thrombosis): PLAN: Plan #DKA in setting of chronic type 1 diabetes -Serum glucose in ED 729, anion gap 16 -Serum acetone small -Admit to intensive care unit -N.p.o. -Insulin drip started -Aggressive fluid hydration -Glucose checks and DKA protocol -BMP every 4H -Replace electrolytes per protocol -I's and O's -A1c in the a.m. -When serum glucose is <250 mg/dl, change IV fluids to D5%1/2NS at 150 ml/hr andcontinue insulin drip as per nomogram # PAD -Status post left lower extremity amputation -Reports she has been having some pain in her right lower extremity that she is concerned about -Extremity is warm and pulses palpable -Will obtain vascular studies given her intermittent pain but present limb seemsto be warm and well-perfused -Continue aspirin and statin #Migraine -As needed medication, may improve with fluids and treatment of her DKA #Hx DVT -On coumadin -Subtherapeutic, will need to increase dosing -Monitor INR # CKD unclear subtype -This better than it had been previously however on 04/23 0.76 and today 1.2, appears to have very variable baseline -Will hydrate per DKA protocol #GERD -Continue PPI #DVT ppx: Lovenox subcu while Coumadin subtherapeutic Annemarie Rizzo MD Charges/Coding Visit Charges Inpatient E&M: 58686 Init Hosp L1 05/14/23 4729 <Electronically signed by Annemarie Rizzo MD> Cosigner Signature (if applicable): CC: Dr. Annemarie Rizzo MD; [facility]~ Signed [facility] Work Phone: 1(809) 644-603301-21-2024 Hospital Discharge instructions Additional Instructions Follow-up with the valsartan clinic within the next 3 to 5 days.[facility] Work Phone: 1(153) 564-844712-13-2023 Consult note Author Jody Alexander [facility] March 15, 2023 9:54am Note Date/Time March 15, 2023 9:54am [facility] Medical Records Department [address] [place] [address] Counseling Note - Pharmacy 03/15/23 0954 MR#: [id number] Acct: [id number] Name: VENANCIO FOREMAN Rep #:[id number] : 1985 37 From: Jody Alexander PCP: Care Physician,No Primary Status :[facility]M IN [facility] Pharmacy Service has performed discharge medication reconciliation for this patient. The patient's discharge medication list was reviewed for discrepancies and discrepancies were resolved. Medications at Discharge Home Medications aspirin 81 mg tablet,delayed release (Adult Low Dose Aspirin) 81 mg PO DAILY 30 days #30 tabs 03/14/23 atorvastatin 40 mg tablet 40 mg PO DAILY 30 days #30 tabs 03/14/23 blood sugar diagnostic (Blood Glucose Test strips) #50 ea 03/14/23 hydrocodone-acetaminophen 5-325mg 5mg-325mg 1 tab PO Q6H PRN PRN Pain 3 days #12TABLETS 03/14/23 insulin syr/ndl U100 half jesús 0.3 mL 30 gauge x 1/2 #100 ea 03/14/23 lancets 30 gauge #120 units 03/14/23 metoprolol succinate 100 mg tablet,extended release 24 hr (Toprol XL) 100 mg PO DAILY 30 days #30 tabs 03/14/23 pantoprazole 40 mg granules delayed-release for susp in packet 40 mg PO DAILY 30days #30 ea 03/14/23 pregabalin 300 mg capsule 300 mg PO BID 30 days #60 caps 03/14/23 warfarin 5 mg tablet 5 mg PO DAILY 30 days #30 tabs 03/14/23 zolpidem 10 mg tablet 10 mg PO QHS PRN insomnia 30 days #30 tabs 03/14/23 insulin glargine 100 unit/mL subcutaneous solution 30 unit (0.3 mL) subcut DAILY#10 mL 03/15/23 insulin lispro 100 unit/mL subcutaneous solution (Humalog U-100 Insulin) 10 unit(0.1 mL) subcut TID #10 mL 03/15/23 03/15/23 0954 <Electronically signed by Jody Alexander> Date _ Jody Alexander Cosigner Signature (if applicable): Date CC: ~ Signed [facility] Work Phone: 1(631) 255-477412-13-2023 Discharge summary Author Marcelo Stone [facility] March 15, 2023 9:29am Note Date/Time March 14, 2023 10:37am [facility] Medical Records Department [address] [place] [address] Instructions for Home/Discharge Instructions 03/14/23 1033 MR#: [id number] Acct: [id number] Name: VENANCIO FOREMAN Rep #:[id number] : 1985 37 From: Marcelo rodriguez DO PCP: Care Physician,No Primary Status :ADM IN Discharge Instructions Diet Discharge Diet: Carb Control Diet Activity Discharge Activity: Return to Normal Activity Weight Bearing Status: Full weight bearing Follow Up Care Test Results: Test results from this visit will be discussed in further detail at your follow- up appointment, if applicable. Pending Tests Upon Discharge: None Discharge Plan Admission Admit Date/Time: 03/12/23 16:20 Primary Reason for Your Visit: DKA Attending Provider: Marcelo Stone Primary Care Provider: Care Physician,No Primary Consulting Providers: Wai Roberts Instructions Additional Instructions / Restrictions: Please take insulin as noted below. Continue other home medications as noted. Follow-up with your new primary care doctor as soon as possible. Please have repeat BMP done when you see your new PCP to ensure your kidney function has continued to improve. Discharge Orders/Prescriptions Prescriptions: New (DME) lancets 30 gauge misc See Rx Instructions .Route Qty: 120 0RF Rx Instructions: As directed (DME) Blood Glucose Test Strip See Rx Instructions .Route Qty: 50 3RF Rx Instructions: As directed (DME) insulin syr/ndl U100 half jesús 0.3 mL 30 gauge x 1/2 syringe See Rx Instructions .Route Qty: 100 0RF Rx Instructions: As directed insulin glargine 100 unit/mL solution 30 unit subcut DAILY Qty: 10 0RF insulin lispro [Humalog U-100 Insulin] 100 unit/mL solution 10 unit subcut TID Qty: 10 0RF Continued atorvastatin 40 mg tablet 40 mg PO DAILY 30 Days Qty: 30 0RF hydrocodone-acetaminophen 5-325 mg tablet 1 tab PO Q6H PRN PRN (Reason: Pain) 3 Days Qty: 12 0RF metoprolol succinate [Toprol XL] 100 mg tablet extended release 24 hr 100 mg PO DAILY 30 Days Qty: 30 0RF aspirin [Adult Low Dose Aspirin] 81 mg tablet,delayed release (DR/EC) 81 mg PO DAILY 30 Days Qty: 30 0RF zolpidem 10 mg tablet 10 mg PO QHS PRN (Reason: insomnia) 30 Days Qty: 30 0RF pregabalin 300 mg capsule 300 mg PO BID 30 Days Qty: 60 0RF pantoprazole [address] for susp in packet 40 mg PO DAILY 30 Days Qty: 30 0RF Changed warfarin 5 mg tablet 5 mg PO DAILY 30 Days Qty: 30 0RF Discontinued Humalog U-100 Insulin 100 unit/mL cartridge 1 - 100 unit subcut DAILY Patient Comments: Pump. Currently pump is broken and is out of medication. cyclobenzaprine 10 mg tablet 10 mg PO TID PRN (Reason: Muscle Spasm) Qty: 20 0RF esomeprazole magnesium [Nexium 24HR] 20 mg capsule,delayed release(DR/EC) 20 mg PO DAILY Qty: 30 0RF insulin lispro 100 unit/mL insulin pen 10 unit subcut TID Qty: 15 0RF Rx Instructions: follow your sliding scale Referrals / Follow Up: [facility] [Non-Staff] - 03/15/23 2:30 pm (Appt is with Keyla manager case management@ [facility]. She will assist w/JESSICA application and then will get you an appt to be seen by PCP. ) Disposition Disposition (needs filled in before D/C Order can be placed): Home, Self Care 03/15/23928<Electronically signed by Marcelo Stone DO>Marcelo Stone DO CC: Dr. Wai Roberts MD; No Primary Care Physician ~ Signed [facility] Work Phone: 1(256) 785-649512-13-2023 Progress note Author [facility] March 14, 2023 10:29pm Note Date/Time March 14, 2023 10:29pm [facility] Medical Records Department [address] [place] [address] Progress Note - Hospitalist 03/14/232227 MR#: [id number] Acct: [id number] Name: VENANCIO FOREMAN Rep #:[id number] : 1985 37 From: Sameera Breen MD PCP: Care Physician,No Primary Status :ADM IN Location: ICU ICU07-1 Hospitalist Note Patient on pain regimen for lower back pain, noting norco now not effective. Will add lidocaine patches. 03/14/232228 <Electronically signed by Sameera Breen MD> Cosigner Signature (if applicable): CC: ~ Signed [facility] Work Phone: [phone] Progress note Author Marcelo [facility] March 14, 2023 3:47pm Note Date/Time March 14, 2023 3:47pm [facility] Medical Records Department [address] [place] [address] Progress Note - Hospitalist 03/14/23 1539 MR#: [id number] Acct: [id number] Name: VENANCIO FOREMAN Rep #:[id number] : 1985 37 From: Marcelo rodriguez DO PCP: Care Physician,No Primary Status :ADM IN Location: ICU ICU07-1 Reason for Visit Reason for Visit: Diagnoses Type 2 diabetes mellitus with ketoacidosis without coma (03/12/23) Subjective Subjective No acute events overnight. Patient seen at bedside's morning. Patient laying comfortably in bed, no acute distress. She continues to appear fatigued but mildly improved from yesterday. States she ate well yesterday evening and was awaiting her breakfast when I saw her this morning. She denies any nausea or vomiting since coming off the insulin drip. Reports mild back pain this morning, improved with home pain medication. She otherwise denies any acute pain or discomfort, no other acute concerns this morning. Objective Data Objective Data Vital Signs: Vital Signs Temp Pulse Resp BP Pulse Ox O2 Del Method 97.6 F L 89 18 153/101 H 94 Room Air 03/14/23 09:18 03/14/23 09:18 03/14/23 09:18 03/14/23 09:18 03/14/23 09:18 03/14/23 09:18 Oxygen Delivery Method Room Air Weight: 65.4 kg Body Mass Index (BMI) 23.2 Intake & Output: Intake and Output for Last 24 Hours 03/12/23 03/13/23 03/14/23 23:59 23:59 23:59 Intake Total 3328.61 / 3328.61 3557.16 / 3557.16 Output Total 600 / 600 Balance 2728.61 / 2728.61 3557.16 / 3557.16 Lab / Micro Data 03/13/23 03:30 03/14/23 06:32 Labs: Laboratory Results - last 24 hr 03/12/23 14:41: Diff Path Review Reviewed 03/13/23 15:44: POC Glucose 115 H 03/13/23 16:25: POC Glucose 154 H 03/13/23 21:06: POC Glucose 381 H 03/13/23 21:40: Sodium 134 L, Potassium 4.3, Chloride 109 H, Carbon Dioxide 17.0L, Anion Gap 8, BUN 29 H, Creatinine 1.75 H, Estim Creat Clear Calc 41.60, Est GFR (MDRD) Af Amer 42 L, Est GFR (MDRD) Non-Af 35 L, BUN/Creatinine Ratio 16.6, Glucose 336 H, Calcium 8.6 03/14/23 06:16: POC Glucose 346 H 03/14/23 06:32: PT Cancelled, INR Cancelled, Sodium 132 L, Potassium 3.9, Chloride 108 H, Carbon Dioxide 16.0 L, Anion Gap 8, BUN 29 H, Creatinine 1.90 H,Estim Creat Clear Calc 38.32, Est GFR (MDRD) Af Amer 38 L, Est GFR (MDRD) Non-Af32 L, BUN/Creatinine Ratio 15.3, Glucose 361 H, Calcium 9.2 03/14/23 07:45: PT 15.5 H, INR 1.2 03/14/23 11:40: POC Glucose 422 H 03/14/23 13:51: POC Glucose 409 H Physical Exam Const alert, oriented x3, no apparent distress and average body habitus Constitutional Narrative: Fatigued appearing but improved from yesterday, laying in bed, conversing normally, no acute distress. General Appearance: cooperative and comfortable HEENT normocephalic, head/scalp atraumatic, hearing grossly normal bilaterally, nasal mucous membranes and turbinates normal and moist oral mucous membranes Eyes PERRL, EOMs intact bilaterally and conjunctivae normal Neck full ROM, no lymphadenopathy and supple Lymph Lymphatic: no lymphadenopathy noted Chest inspection of chest normal Resp normal respiratory effort, normal air movement, no use of accessory muscles and clear to auscultation bilaterally Cardio regular rate, regular rhythm, no murmurs and peripheral pulses 2+ throughout GI normal to inspection, nondistended, normoactive bowel sounds, soft to palpation,non-tender and non-distended Back/Spine normal ROM Extremity normal to inspection, full ROM and no pedal edema Skin no rashes or lesions noted Neuro moves all extremities and no focal motor deficits Speech: speech normal Psych mental status grossly normal Assessment & Plan Assessment/Plan (1) Diabetic ketoacidosis: PLAN: Plan Patient is a 37-year-old female who presented with [facility] ED on 03/12/2023 with DKA. 1. DKA, resolved; type 1 diabetes mellitus DKA presumed secondary to insulin nonadherence. Patient reported recent moved to [place] from [place] about 1 month ago, was previously on an insulin pump but due to insurance issues was not able to get an insulin pump and ran out of insulin. BG 489 on admit, pH 7.18, bicarb 8 with anion gap metabolic acidosis, urine ketones present. Admitted to the ICU and initiated on DKA protocol. Anion gap closed on afternoon of 03/13, bicarb 17, patient with minimal nausea and wanting to eat. Transitioned off insulin drip at that time. ? Patient has had elevated blood sugars in the 300s since coming off insulin drip. Increased to Lantus 30 units nightly, Humalog 10 units 3 times daily AC plus high-dose sliding scale. Adjust as needed. Case management following. Hopeful for discharge home tomorrow as patient has afternoon appointment set up with PCP at [facility], who can provide her with a glucometer and further resources going forward. 2. ANA LAURA Suspect prerenal ANA LAURA with possibly some degree of ATN in setting of DKA. Baseline creatinine 0.5-0.7. Creatinine 1.36 on admit, initially improved with fluids but then worsened on afternoon of 03/13 to 1.59. Patient reports adequate urine output since admission. ? Creatinine mildly worsened to 1.90 on 03/14. Has had moderate urine output. Will follow-up BMP this afternoon and tomorrow morning to ensure improvement in ANA LAURA prior to discharge. 3. Back pain, stable Patient seen in ED on 02/28/2023 for a fall. Lumbar spine x-ray showed no fractures. ? Continue home Percocet. Chronic medical conditions: ? History of severe peripheral vascular disease with DVT s/p left BKA: Continue home warfarin, daily INR checks. Continue home atorvastatin. ? Hypertension, hyperlipidemia: Continue home Toprol and atorvastatin. ? GERD: Continue home PPI. DVT prophylaxis: Warfarin CODE STATUS: Full code, verified Expected disposition: Home, 1 to 2 days Total clinical time spent by myself addressing the patient's medical issues, reviewing all the data, and collaborating with patient's care team: 35 minutes. Charges/Coding Visit Charges Inpatient E&M: 55975 Subs Hosp L2 03/14/23 3072 <Electronically signed by Marcelo Stone DO> Cosigner Signature (if applicable): CC: ~ Signed [facility] Work Phone: 1(941) 301-247212-12-2023 Discharge summary Author Marcelo Stone [facility] March 15, 2023 9:29am Note Date/Time March 14, 2023 10:37am [facility] Medical Records Department [address] [place] [address] Instructions for Home/Discharge Instructions 03/14/23 1033 MR#: [id number] Acct: [id number] Name: VENANCIO FOREMAN Rep #:[id number] : 1985 37 From: Marcelo rodriguez DO PCP: Care Physician,No Primary Status :ADM IN Discharge Instructions Diet Discharge Diet: Carb Control Diet Activity Discharge Activity: Return to Normal Activity Weight Bearing Status: Full weight bearing Follow Up Care Test Results: Test results from this visit will be discussed in further detail at your follow- up appointment, if applicable. Pending Tests Upon Discharge: None Discharge Plan Admission Admit Date/Time: 03/12/23 16:20 Primary Reason for Your Visit: DKA Attending Provider: Marcelo Stone Primary Care Provider: Care Physician,No Primary Consulting Providers: Wai Roberts Instructions Additional Instructions / Restrictions: Please take insulin as noted below. Continue other home medications as noted. Follow-up with your new primary care doctor as soon as possible. Please have repeat BMP done when you see your new PCP to ensure your kidney function has continued to improve. Discharge Orders/Prescriptions Prescriptions: New (DME) lancets 30 gauge misc See Rx Instructions .Route Qty: 120 0RF Rx Instructions: As directed (DME) Blood Glucose Test Strip See Rx Instructions .Route Qty: 50 3RF Rx Instructions: As directed (DME) insulin syr/ndl U100 half jesús 0.3 mL 30 gauge x 1/2 syringe See Rx Instructions .Route Qty: 100 0RF Rx Instructions: As directed insulin glargine 100 unit/mL solution 30 unit subcut DAILY Qty: 10 0RF insulin lispro [Humalog U-100 Insulin] 100 unit/mL solution 10 unit subcut TID Qty: 10 0RF Continued atorvastatin 40 mg tablet 40 mg PO DAILY 30 Days Qty: 30 0RF hydrocodone-acetaminophen 5-325 mg tablet 1 tab PO Q6H PRN PRN (Reason: Pain) 3 Days Qty: 12 0RF metoprolol succinate [Toprol XL] 100 mg tablet extended release 24 hr 100 mg PO DAILY 30 Days Qty: 30 0RF aspirin [Adult Low Dose Aspirin] 81 mg tablet,delayed release (DR/EC) 81 mg PO DAILY 30 Days Qty: 30 0RF zolpidem 10 mg tablet 10 mg PO QHS PRN (Reason: insomnia) 30 Days Qty: 30 0RF pregabalin 300 mg capsule 300 mg PO BID 30 Days Qty: 60 0RF pantoprazole [address] for susp in packet 40 mg PO DAILY 30 Days Qty: 30 0RF Changed warfarin 5 mg tablet 5 mg PO DAILY 30 Days Qty: 30 0RF Discontinued Humalog U-100 Insulin 100 unit/mL cartridge 1 - 100 unit subcut DAILY Patient Comments: Pump. Currently pump is broken and is out of medication. cyclobenzaprine 10 mg tablet 10 mg PO TID PRN (Reason: Muscle Spasm) Qty: 20 0RF esomeprazole magnesium [Nexium 24HR] 20 mg capsule,delayed release(DR/EC) 20 mg PO DAILY Qty: 30 0RF insulin lispro 100 unit/mL insulin pen 10 unit subcut TID Qty: 15 0RF Rx Instructions: follow your sliding scale Referrals / Follow Up: [facility] [Non-Staff] - 03/15/23 2:30 pm (Appt is with Keyla [email or web address]. She will assist w/JESSICA application and then will get you an appt to be seen by PCP. ) Disposition Disposition (needs filled in before D/C Order can be placed): Home, Self Care 03/15/23 09<Electronically signed by Marcelo Stone DO>Marcelo Stone DO CC: Dr. Wai Roberts MD; No Primary Care Physician ~ Signed [facility] Work Phone: 1(600) 241-297812-11-2023 Progress note Author Marcelo [facility] March 13, 2023 5:45pm Note Date/Time March 13, 2023 3:12pm [facility] Medical Records Department [address] [place] [address] Progress Note - Hospitalist 03/13/23 1512 MR#: [id number] Acct: [id number] Name: VENANCIO FOREMAN Rep #:[id number] : 1985 37 From: Marcelo rodriguez DO PCP: Care Physician,No Primary Status :ADM IN Location: ICU ICU07-1 Reason for Visit Reason for Visit: Diagnoses Type 2 diabetes mellitus with ketoacidosis without coma (03/12/23) Subjective Subjective Patient admitted yesterday afternoon for DKA. No acute events overnight. Patient seen at bedside this morning in the ICU. Patient laying in bed, conversing normally. Patient was in mild distress due to lower back pain, whichis fairly chronic in nature for her but has been acutely worse over the last fewweeks. Patient reports mild nausea this morning, no episodes of vomiting overnight, no abdominal pain. She does feel like eating at this point. She reports feeling somewhat fatigued but improved from yesterday. She otherwise denies any acute pain or discomfort. No other acute concerns. Objective Data Objective Data Vital Signs: Vital Signs Temp Pulse Resp BP Pulse Ox O2 Del Method 97.9 F 100 16 161/91 H 95 Room Air 03/13/23 12:00 03/13/23 14:00 03/13/23 14:00 03/13/23 14:00 03/13/23 14:00 03/13/23 14:00 Oxygen Delivery Method Room Air Weight: 64.6 kg Body Mass Index (BMI) 22.9 Intake & Output: Intake and Output for Last 24 Hours 03/11/23 03/12/23 03/13/23 23:59 23:59 23:59 Intake Total 3328.61 / 3328.61 2355.28 / 2355.28 Output Total 600 / 600 Balance 2728.61 / 2728.61 2355.28 / 2355.28 Lab / Micro Data 03/13/23 03:30 03/13/23 14:20 Labs: Laboratory Results - last 24 hr 03/12/23 14:35: Urine RBC 50-100 SEEN, Urine WBC 0 SEEN, Ur Squamous Epith Cells0-5 SEEN, Urine Bacteria 0 SEEN, Urine Mucus 0 SEEN 03/12/23 14:41: Sodium 124 L, Potassium 3.8, Chloride 88 L, Carbon Dioxide 8.0 L*, Anion Gap 28 H, BUN 37 H, Creatinine 1.36 H, Estim Creat Clear Calc 53.53, Est GFR (MDRD) Af Amer 57 L, Est GFR (MDRD) Non-Af 47 L, BUN/Creatinine Ratio 27.2 H, Glucose 479 H*, Lactic Acid 0.8, Calcium 9.1, Troponin I High Sens 21, Lipase 64, Acetone Level MODERATE H 03/12/23 16:04: POC Glucose 419 H 03/12/23 17:09: POC Glucose 327 H 03/12/23 18:09: POC Glucose 244 H 03/12/23 18:10: Sodium 134 L, Potassium 3.1 L, Chloride 103, Carbon Dioxide 10.0L, Anion Gap 21 H, BUN 29 H, Creatinine 0.95, Estim Creat Clear Calc 76.64, Est GFR (MDRD) Af Amer 86, Est GFR (MDRD) Non-Af 71, BUN/Creatinine Ratio 30.6 H, Glucose 265 H, Calcium 7.6 L, Troponin I High Sens 23 03/12/23 19:10: PT 13.5, INR 1.0 03/12/23 19:34: POC Glucose 242 H 03/12/23 20:35: POC Glucose 237 H 03/12/23 21:30: POC Glucose 251 H 03/12/23 22:29: POC Glucose 260 H 03/12/23 23:29: POC Glucose 266 H 03/12/23 23:50: Sodium 133 L, Potassium 4.7, Chloride 107, Carbon Dioxide 15.0 L, Anion Gap 11, BUN 20 H, Creatinine 0.93, Estim Creat Clear Calc 78.29, Est GFR(MDRD) Af Amer 87, Est GFR (MDRD) Non-Af 72, BUN/Creatinine Ratio 21.5 H, Glucose 258 H, Calcium 8.0 L 03/13/23 00:31: POC Glucose 219 H 03/13/23 01:29: POC Glucose 198 H 03/13/23 02:32: POC Glucose 188 H 03/13/23 03:30: WBC 7.8, RBC 5.66 H, Hgb 14.2, Hct 41.2, MCV 72.8 L, MCH 25.1 L,MCHC 34.5, RDW Std Deviation 48.2 H, RDW Coeff of Gerard 19.0 H, Plt Count 237, MPV10.7, Immature Gran % (Auto) 0.300, Neut % (Auto) 66.4, Lymph % (Auto) 26.2, Chatham % (Auto) 6.5, Eos % (Auto) 0.3, Baso % (Auto) 0.3, Absolute Neuts (auto) 5.2, Absolute Lymphs (auto) 2.05, Nucleated RBC % 0, PT 13.0, INR 1.0, Sodium 134 L, Potassium 4.0, Chloride 108 H, Carbon Dioxide 17.0 L, Anion Gap 9, BUN 22H, Creatinine 1.10 H, Estim Creat Clear Calc 66.19, Est GFR (MDRD) Af Amer 72, Est GFR (MDRD) Non-Af 60, BUN/Creatinine Ratio 20.0, Glucose 173 H, Calcium 7.9 L 03/13/23 03:37: POC Glucose 167 H 03/13/23 04:34: POC Glucose 153 H 03/13/23 06:18: Acetone Level SMALL H 03/13/23 06:30: POC Glucose 129 H 03/13/23 07:50: POC Glucose 140 H 03/13/23 08:21: POC Glucose 124 H 03/13/23 10:30: Sodium 137, Potassium 3.1 L, Chloride 111 H, Carbon Dioxide 17.0L, Anion Gap 9, BUN 25 H, Creatinine 1.47 H, Estim Creat Clear Calc 49.53, Est GFR (MDRD) Af Amer 52 L, Est GFR (MDRD) Non-Af 43 L, BUN/Creatinine Ratio 17.0, Glucose 105, Calcium 8.6, POC Glucose 103 03/13/23 11:28: POC Glucose 94 03/13/23 12:34: POC Glucose 114 H 03/13/23 13:52: POC Glucose 130 H 03/13/23 14:20: Sodium 138, Potassium 3.3 L, Chloride 111 H, Carbon Dioxide 17.0L, Anion Gap 10, BUN 26 H, Creatinine 1.59 H, Estim Creat Clear Calc 45.79, Est GFR (MDRD) Af Amer 47 L, Est GFR (MDRD) Non-Af 39 L, BUN/Creatinine Ratio 16.4, Glucose 133 H, Calcium 8.4 L 03/13/23 14:28: POC Glucose 126 H ABG Data ABG results: ABG 03/12/23 15:32 Specimen Type KRYSTAL Sample Site Not entered VBG pH 7.18 L* VBG pO2 46 H VBG HCO3 6 L VBG Total CO2 6 L VBG O2 Sat (Calc) 73 H VBG Base Excess -23 L POC Mix VBG pCO2 Pt Tmp 15.6 L* O2 Delivery Device Not entered Crit Call To/Read Back Yes Blood Gas Notified Whom es Blood Gas Notified Time 15:33:42 Radiography Diagnostic Testing: Radiology Impression Chest X-Ray 03/12/23 14:55 IMPRESSION: There are no acute findings. Electronically Signed: Michael Degroot MD at 15:12 EST , Physical Exam Const alert, oriented x3, no apparent distress and average body habitus Constitutional Narrative: Alert but fatigued appearing, laying in bed, conversing normally, mild distress due to lower back pain. General Appearance: cooperative and comfortable HEENT normocephalic, head/scalp atraumatic, hearing grossly normal bilaterally, nasal mucous membranes and turbinates normal and moist oral mucous membranes Eyes PERRL, EOMs intact bilaterally and conjunctivae normal Neck full ROM, no lymphadenopathy and supple Lymph Lymphatic: no lymphadenopathy noted Chest inspection of chest normal Resp normal respiratory effort, normal air movement, no use of accessory muscles and clear to auscultation bilaterally Cardio no murmurs and peripheral pulses 2+ throughout Cardio Narrative: Tachycardic, regular rhythm. GI normal to inspection, nondistended, normoactive bowel sounds, soft to palpation,non-tender and non-distended Back/Spine normal ROM Extremity normal to inspection, full ROM and no pedal edema Skin no rashes or lesions noted Neuro moves all extremities and no focal motor deficits Speech: speech normal Psych mental status grossly normal Assessment & Plan Assessment/Plan (1) Diabetic ketoacidosis: PLAN: Plan Patient is a 37-year-old female who presented with [facility] ED on 03/12/2023 with DKA. 1. DKA, resolved; type 1 diabetes mellitus DKA presumed secondary to insulin nonadherence. Patient reported recent moved to [place] from [place] about 1 month ago, was previously on an insulin pump but due to insurance issues was not able to get an insulin pump and ran out of insulin. BG 489 on admit, pH 7.18, bicarb 8 with anion gap metabolic acidosis, urine ketones present. Admitted to the ICU and initiated on DKA protocol. Anion gap closed on afternoon of 03/13, bicarb 17, patient with minimal nausea and wanting to eat. ? Transitioned off insulin drip on 03/13. Started on Lantus 15 units nightly, Humalog 5 units 3 times daily AC with high?medium sliding scale dosing. One-time dose of NPH 7 units given with transition to cover until initiating Lantus. Repeat BMP tonight and tomorrow morning. Monitor blood sugars closely. supervisor contact lens consulted. Will likely need to start Lantus and Humalog injectable insulin on discharge until patient is able to get a new insulin pump in the outpatient setting. 2. ANA LAURA Suspect prerenal ANA LAURA with possibly some degree of ATN in setting of DKA. Baseline creatinine 0.5-0.7. Creatinine 1.36 on admit, initially improved with fluids but then worsened on afternoon of 03/13 to 1.59. Patient reports adequate urine output since admission. ? Monitor daily BMP. IV fluids discontinued with insulin drip, encouraged p.o. intake. Monitor urine output. 3. Back pain Patient seen in ED on 02/28/2023 for a fall. Lumbar spine x-ray showed no fractures. ? Continue home Percocet. Chronic medical conditions: ? History of severe peripheral vascular disease with DVT s/p left BKA: Continue home warfarin, daily INR checks. Continue home atorvastatin. ? Hypertension, hyperlipidemia: Continue home Toprol and atorvastatin. ? GERD: Continue home PPI. DVT prophylaxis: Warfarin CODE STATUS: Full code, verified Expected disposition: Home, 1 to 2 days Total clinical time spent by myself addressing the patient's medical issues, reviewing all the data, and collaborating with patient's care team: 35 minutes. Charges/Coding Visit Charges Inpatient E&M: 50392 Subs Hosp L2 03/13/23 9985 <Electronically signed by Marcelo Stone DO> Cosigner Signature (if applicable): CC: ~ Signed [facility] Work Phone: 1(161) 899-680912-10-2023 Discharge summary Author Sergio Vogel [facility] March 12, 2023 9:51pm Note Date/Time March 12, 2023 3:03pm [facility] Medical Records Department [address] [place] [address] Emergency Department Summary 03/12/23 MR#: [id number] Acct: [id number] Name: VENANCIO FOREMAN Rep #:[id number] : 1985 37 From: Sergio Lal PCP: Care Physician,No Primary Status :ADM IN Location: ICU ICU07-1 HPI History of Present Illness Chief Complaint: Hyperglycemia Informant: patient Onset/Context/Timing Onset: Days (4) Context: Gradual Onset Timing: Continuous Quality: Sharp Location: Chest and back Worsened by: Movement Relieved by: Nothing Narrative Narrative: Patient presents with generalized weakness that has been getting worse over the past 4 days. Patient states she has some pain in her chest and back. Patient describes it as sharp. Patient states it is worse with certain movements. Patient has a history of diabetes and states she has been unable to to check herblood sugars for the past 4 days. Patient admits to some nausea and vomiting. Patient denies any fevers or chills. Patient admits to some shortness of breathwith this. [facility] Medical History Abnormal angiogram Chronic anticoagulation HTN (hypertension) Hyperlipidemia Peripheral artery disease Type 1 diabetes mellitus Home Medications aspirin 81 mg tablet,delayed release (Adult Low Dose Aspirin) 81 mg PO DAILY 02/09/23 [History Last Taken Unknown] pantoprazole 40 mg granules delayed-release for susp in packet 40 mg PO DAILY 02/09/23 [History Last Taken Unknown] zolpidem 10 mg tablet 10 mg PO QHS PRN insomnia 02/09/23 [History Last Taken Unknown] insulin lispro 100 unit/mL subcutaneous cartridge (Humalog U-100 Insulin) 1 - 100 unit subcut DAILY 02/28/23 [History Last Taken Unknown] atorvastatin 40 mg tablet 40 mg PO DAILY #30 tabs 03/01/23 [Rx Last Taken Unknown] cyclobenzaprine 10 mg tablet 10 mg PO TID PRN Muscle Spasm #20 TABLETS 03/01/23 [Rx Last Taken Unknown] esomeprazole magnesium 20 mg capsule,delayed release (Nexium 24HR) 20 mg PO DAILY #30 caps 03/01/23 [Rx Last Taken Unknown] hydrocodone-acetaminophen 5-325mg 5mg-325mg 1 tab PO Q6H PRN PRN Pain 3 days #10TABLETS 03/01/23 [Rx Last Taken Unknown] insulin lispro 100 unit/mL subcutaneous pen 10 unit (0.1 mL) subcut TID #15 mL 03/01/23 [Rx Last Taken Unknown] metoprolol succinate 100 mg tablet,extended release 24 hr (Toprol XL) 100 mg PO DAILY #30 tabs 03/01/23 [Rx Last Taken Unknown] pregabalin 300 mg capsule 300 mg PO BID #60 caps 03/01/23 [Rx Last Taken Unknown] warfarin 5 mg tablet 15 mg (3 x 5 mg) PO DAILY #90 tabs 03/01/23 [Rx Last Taken Unknown] Allergy/AdvReac Type Severity Reaction Status Date / Time morphine Allergy Intermediate Rash Verified 02/28/23 20:36 orange Allergy Rash Verified 02/28/23 20:36 Surgical History S/P BKA (below knee amputation) unilateral Social History Smoking Status: Never smoker ROS ROS ED Constitutional Constitutional ED: Denies chills or fever(s) Eyes Eyes: Denies blurry vision or change in vision ENT ENT ED: Denies rhinorrhea or sore throat Cardiovascular Cardiovascular: Reports chest pain; Denies palpitations Respiratory/Chest Respiratory/Chest: Reports dyspnea; Denies cough Gastrointestinal Gastrointestinal: Reports nausea and vomiting Genitourinary Genitourinary ED: Denies dysuria or hematuria Musculoskeletal Musculoskeletal: Reports back pain; Denies neck pain Integumentary Denies abscess or rash Neurologic Neurologic: Denies headache(s) or weakness Allergic/Immunologic Allergic/Immunologic ED: Denies mouth swelling or urticaria EXAM Physical Exam Const Vital Signs: 03/12/23 13:34 03/12/23 14:55 03/12/23 14:55 Temperature 96.7 F L Temperature Source Temporal Pulse Rate 140 H 134 H Respiratory Rate 26 H 34 H Respiratory Effort Labored Respiratory Pattern Tachypnea Blood Pressure 131/88 H 139/101 H Blood Pressure Mean 102 113 Pulse Ox 100 100 Oxygen Delivery Method Room Air Room Air Positive well nourished and well developed General Appearance ED: well developed and NAD HEENT Reports dry mucous membranes Mouth ED: Yes dry mucous membranes Mouth: dry mucous membranes Neck supple and no JVD Resp normal respiratory effort and clear to auscultation bilaterally Cardio regular rhythm Rate: tachycardic GI non-tender and non-distended Palpation: soft Extremity General Extremety ED: Negative for edema or tenderness General Extremity: Negative for edema Neuro oriented x3, CN's II-XII intact bilaterally and no sensory deficits noted Sensorium / Orientation: alert Motor Exam: strength 5/5 throughout MDM MDM MDM Narrative Medical decision making narrative: Differential diagnosis includes DKA, dehydration, hyperglycemia, HHNC, urinary tract infection, sepsis, pneumonia, and pancreatitis. CBC will be obtained to assess for leukocytosis and anemia. Basic metabolic profile will be obtained toassess for electrolyte abnormality, hyperglycemia, and renal function. Serum lactate will be obtained to assess for sepsis. Serum acetone will be obtained to assess for DKA. Lipase will be obtained to assess for pancreatitis. Chest x-ray will be obtained to assess for pneumonia. Venous blood gas will be obtained to assess for acid-base status. EKG will be obtained to assess for cardiac dysrhythmia and cardiac ischemia. High-sensitivity troponin will be obtained to assess for cardiac ischemia. History & Record Review Additional record(s) reviewed:: Prior labs Lab Data Attestation: I reviewed the patient's lab results. Lab results narrative: CBC was reviewed. There is a mild leukocytosis of 11.1. Hemoglobin was elevated at 18.0 hematocrit was 53.4. Platelets were normal. Basic metabolic profile was reviewed. Glucose was elevated at 479. Sodium was falsely low at 124. Chloride was low at 88. CO2 was 8. Anion gap was elevated at 28. BUN was 37 and creatinine is 1.36. Lipase was reviewed and was within normal limits. Urinalysis was reviewed. Occult blood was 250 with 50-100 red blood cells noted. There is no evidence of urinary tract infection. Serum acetone was reviewed and was moderate. Venous blood gas was reviewed and showed a pH of7.18. pCO2 was 15.6. pO2 was 46.3. Bicarb was 5.9. Labs: Laboratory Results - last 24 hr 03/12/23 03/12/23 03/12/23 13:44 14:35 14:41 WBC 11.1 H RBC 7.25 H Hgb 18.0 H* Hct 53.4 H MCV 73.7 L MCH 24.8 L MCHC 33.7 RDW Std Deviation 47.1 H RDW Coeff of Gerard 19.3 H Plt Count 447 MPV 10.7 Immature Gran % (Auto) 0.400 Neut % (Auto) 78.9 H Lymph % (Auto) 15.5 L Chatham % (Auto) 4.7 Eos % (Auto) 0.3 Baso % (Auto) 0.2 Absolute Neuts (auto) 8.8 H Absolute Lymphs (auto) 1.72 Nucleated RBC % 0 Sodium 124 L Potassium 3.8 Chloride 88 L Carbon Dioxide 8.0 L* Anion Gap 28 H BUN 37 H Creatinine 1.36 H Estim Creat Clear Calc 53.53 Est GFR (MDRD) Af Amer 57 L Est GFR (MDRD) Non-Af 47 L BUN/Creatinine Ratio 27.2 H Glucose 479 H* Lactic Acid 0.8 Calcium 9.1 Troponin I High Sens 21 Lipase 64 Urine Color Yellow Urine Clarity Sl. Cloudy Urine pH 5.0 Ur Specific Margaret 1.025 Urine Protein 30 H Urine Glucose (UA) 1000 H Urine Ketones 150 A* Urine Occult Blood 250 H Urine Nitrite Negative Urine Bilirubin Negative Urine Urobilinogen Normal Ur Leukocyte Esterase Negative Urine RBC 50-100 SEEN Urine WBC 0 SEEN Ur Squamous Epith Cells 0-5 SEEN Urine Bacteria 0 SEEN Urine Mucus 0 SEEN Acetone Level MODERATE H POC Glucose 489 H* ABG Data ABG results: ABG 03/12/23 15:32 Specimen Type KRYSTAL Sample Site Not entered VBG pH 7.18 L* VBG pO2 46 H VBG HCO3 6 L VBG Total CO2 6 L VBG O2 Sat (Calc) 73 H VBG Base Excess -23 L POC Mix VBG pCO2 Pt Tmp 15.6 L* O2 Delivery Device Not entered Crit Call To/Read Back Yes Blood Gas Notified Whom es Blood Gas Notified Time 15:33:42 Radiography Chest X-Ray - ED: 1 View, Read by ED Physician, Read by Radiologist and No AcuteDisease Diagnostic Testing: Clinical Impression(s) from Imaging Studies Chest X-Ray 03/12/23 14:55 IMPRESSION: There are no acute findings. Electronically Signed: Michael Degroot MD at 15:12 EST , Portable 1 view chest x-ray was obtained. On my independent interpretation, lung smalls are clear. There is normal cardiac silhouette. Bony thorax is normal. There is no acute process noted. Radiologist also interpreted the x-ray and agrees. EKG Initial EKG: Attestation: I personally reviewed and interpreted this EKG as follows: Interpretation: Sinus Tachycardia (124) and Non-Specific ST Changes Comments: EKG was obtained. On my independent interpretation, it showed asinus tachycardia with a rate of 124. OR interval, QRS interval, and QTc intervals were all normal. Melvin was normal. There are nonspecific ST-T wave changes. Prior EKG tracings: available for review Prior: Changed (The nonspecific ST-T wave changes are new compared to previous EKG dated 02/28/2023.) Management Discussion w/another healthcare provider: Hospitalist Treatment and Re-Evaluation :: Patient was given IV fluids. Patient was given a dose of [place] and Zofran. Patient was started on insulin drip. Case was discussed with the hospitalist. He will admit the patient to ICU. Patient and significant other understood and were agreeable with the plan. All questions were answered. Critical Care Time Critical Care Time: Yes Critical care time (excluding procedures): 30-74 minutes (36), Including time spent:, Discussing w/Patient &/or Family/Engineer Technician, Discussing w/Consultants, Arranging Admission or Transfer and Performing Direct Patient Care at Bedside Discharge Plan Dx/Rx/DC Orders Clinical Impression: Diabetic ketoacidosis, Type 1 diabetes mellitus, Hyponatremia, HTN (hypertension) Disposition Disposition: Acute Care Hospital [facility] What to do if you have Problems For any increased pain, shortness of breath, bleeding, nausea or vomiting, chestpain, or any unexpected problems, contact your Primary Care Provider. Call [facility] ([phone]) or report to the closest Emergency Room. Call 911 if necessary. 03/12/232150 <Electronically signed by Sergio Vogel DO> Cosigner Signature (if applicable): CC: No Primary Care Physician ~ Signed [facility] Work Phone: 1(266) 942-858312-10-2023 History and physical note Author Wai Roberts [facility] March 12, 2023 4:38pm Note Date/Time March 12, 2023 4:38pm [facility] Medical Records Department [address] [place] [address] H&P Exam - Hospitalist 03/12/23 1627 MR#: [id number] Acct: [id number] Name: VENANCIO FOREMAN Rep #:[id number] : 1985 37 From: Wai holcomb MD PCP: Care Physician,No Primary Status :ADM IN Location: ICU ICU07-1 HPI - General General Date of Admission: 03/12/23 HPI Narrative VENANCIO FOREMAN, is a 37 F who presents to the hospital in DKA. She has been feeling worse and getting weaker for the last couple of days and has been havingsignificant back pain after a fall on 02/28. She was in the ER for that episodeand had a lumbar x-ray which did not demonstrate a fracture. Today she is significantly tachycardic and acidotic and she states that she is a type I diabetic and normally has an insulin pump however she and her moved up here with her 3 kids from [place] about a month and a half ago and have beenunable to get Medicaid started and so she has not been able to go to a PCP or anendocrinologist to get a new insulin pump so she has been trying to cover her blood sugars at home. She denies any recent illnesses, no fevers or chills. She is having some nausea today as well as vomiting but no diarrhea. In the ER she does have urine ketones as well as acetones, her urine glucose is over thousand her pH is 7.18 with bicarb of 8 and an anion gap of 28. Her creatinineis elevated at 1.36, her baseline is 0.7 so she does have an ANA LAURA. [facility] Medical History Abnormal angiogram Chronic anticoagulation HTN (hypertension) Hyperlipidemia Peripheral artery disease Type 1 diabetes mellitus Home Medications aspirin 81 mg tablet,delayed release (Adult Low Dose Aspirin) 81 mg PO DAILY 02/09/23 [History Last Taken Unknown] pantoprazole 40 mg granules delayed-release for susp in packet 40 mg PO DAILY 02/09/23 [History Last Taken Unknown] zolpidem 10 mg tablet 10 mg PO QHS PRN insomnia 02/09/23 [History Last Taken Unknown] insulin lispro 100 unit/mL subcutaneous cartridge (Humalog U-100 Insulin) 1 - 100 unit subcut DAILY 02/28/23 [History Last Taken Unknown] atorvastatin 40 mg tablet 40 mg PO DAILY #30 tabs 03/01/23 [Rx Last Taken Unknown] cyclobenzaprine 10 mg tablet 10 mg PO TID PRN Muscle Spasm #20 TABLETS 03/01/23 [Rx Last Taken Unknown] esomeprazole magnesium 20 mg capsule,delayed release (Nexium 24HR) 20 mg PO DAILY #30 caps 03/01/23 [Rx Last Taken Unknown] hydrocodone-acetaminophen 5-325mg 5mg-325mg 1 tab PO Q6H PRN PRN Pain 3 days #10TABLETS 03/01/23 [Rx Last Taken Unknown] insulin lispro 100 unit/mL subcutaneous pen 10 unit (0.1 mL) subcut TID #15 mL 03/01/23 [Rx Last Taken Unknown] metoprolol succinate 100 mg tablet,extended release 24 hr (Toprol XL) 100 mg PO DAILY #30 tabs 03/01/23 [Rx Last Taken Unknown] pregabalin 300 mg capsule 300 mg PO BID #60 caps 03/01/23 [Rx Last Taken Unknown] warfarin 5 mg tablet 15 mg (3 x 5 mg) PO DAILY #90 tabs 03/01/23 [Rx Last Taken Unknown] Allergy/AdvReac Type Severity Reaction Status Date / Time morphine Allergy Intermediate Rash Verified 02/28/23 20:36 orange Allergy Rash Verified 02/28/23 20:36 Family History (Updated 03/12/23 @ 16:[address] Wai Roberts MD) Other Cancer Surgical History S/P BKA (below knee amputation) unilateral Social History Smoking Status: Never smoker ROS Constitutional Constitutional: Reports fatigue and weakness; Denies chills, fever(s) or malaise Eyes Eyes: Denies blurry vision ENT HEENT: Denies headache(s) or nasal discharge Cardiovascular Cardiovascular: Reports chest pain; Denies dyspnea on exertion or syncope Respiratory/Chest Respiratory/Chest: Reports shortness of breath at rest; Denies cough or shortness of breath with exertion Gastrointestinal Gastrointestinal: Reports nausea and vomiting; Denies constipation or diarrhea Genitourinary Genitourinary: Denies dysuria Musculoskeletal Musculoskeletal: Reports back pain Neurologic Neurologic: Denies focal weakness, numbness or tremor(s) Psychiatric Psychiatric: Denies anxiety or depression Vital Signs Vital Signs Vital Signs: 03/12/23 13:34 03/12/23 14:55 03/12/23 14:55 Temperature 96.7 F L Temperature Source Temporal Pulse Rate 140 H 134 H Respiratory Rate 26 H 34 H Respiratory Effort Labored Respiratory Pattern Tachypnea Blood Pressure 131/88 H 139/101 H Blood Pressure Mean 102 113 Pulse Ox 100 100 Oxygen Delivery Method Room Air Room Air 03/12/23 16:14 03/12/23 16:14 Temperature Temperature Source Pulse Rate 115 H 115 H Respiratory Rate 26 H Respiratory Effort Respiratory Pattern Blood Pressure 170/94 H Blood Pressure Mean 119 Pulse Ox 100 Oxygen Delivery Method Weight Weight: 180 lb Body Mass Index (BMI) 29.0 Physical Exam Narrative General: Alert, Oriented x3, Cooperative, moderately ill HEENT: Atraumatic, PERRLA, EOMI, Normocephalic Oral: Dry mucosa Neck: Supple, No JVD Lungs: Diminished, Normal air movement, No rhonchi, No wheeze, No rales Cardiovascular: Tachycardic, Regular Rhythm, Normal S1, Normal S2, No murmurs Abdomen: Soft, Non Tender, Non-Distended, No Hepato-splenomegaly Extremities: No edema, Capillary Refill Less than 3 Seconds, left BKA Skin: No rashes, No breakdown Musculoskeletal: Tenderness to palpation in her lumbar spine both midline as well as bilateral paraspinal areas no bruising, or step-offs Neurological: Cranial nerves II-XII grossly intact, Motor Exam 5/5 strength throughout, Sensory exam intact to light touch and pain Psych/Mental Status: Flat affect Results Lab / Micro Data 03/12/23 14:41 03/12/23 14:41 Labs: Laboratory Results - last 24 hr 03/12/23 13:44: POC Glucose 489 H* 03/12/23 14:35: Urine Color Yellow, Urine Clarity Sl. Cloudy, Urine pH 5.0, Ur Specific Margaret 1.025, Urine Protein 30 H, Urine Glucose (UA) 1000 H, Urine Ketones 150 A*, Urine Occult Blood 250 H, Urine Nitrite Negative, Urine Bilirubin Negative, Urine Urobilinogen Normal, Ur Leukocyte Esterase Negative, Urine RBC 50-100 SEEN, Urine WBC 0 SEEN, Ur Squamous Epith Cells 0-5 SEEN, UrineBacteria 0 SEEN, Urine Mucus 0 SEEN 03/12/23 14:41: WBC 11.1 H, RBC 7.25 H, Hgb 18.0 H*, Hct 53.4 H, MCV 73.7 L, MCH24.8 L, MCHC 33.7, RDW Std Deviation 47.1 H, RDW Coeff of Gerard 19.3 H, Plt Count 447, MPV 10.7, Immature Gran % (Auto) 0.400, Neut % (Auto) 78.9 H, Lymph % (Auto) 15.5 L, [place] % (Auto) 4.7, Eos % (Auto) 0.3, Baso % (Auto) 0.2, Absolute Neuts (auto) 8.8 H, Absolute Lymphs (auto) 1.72, Nucleated RBC % 0, Sodium 124 L, Potassium 3.8, Chloride 88 L, Carbon Dioxide 8.0 L*, Anion Gap 28 H, BUN 37 H,Creatinine 1.36 H, Estim Creat Clear Calc 53.53, Est GFR (MDRD) Af Amer 57 L, Est GFR (MDRD) Non-Af 47 L, BUN/Creatinine Ratio 27.2 H, Glucose 479 H*, Lactic Acid 0.8, Calcium 9.1, Troponin I High Sens 21, Lipase 64, Acetone Level MODERATE H ABG Data ABG results: ABG 03/12/23 15:32 Specimen Type KRYSTAL Sample Site Not entered VBG pH 7.18 L* VBG pO2 46 H VBG HCO3 6 L VBG Total CO2 6 L VBG O2 Sat (Calc) 73 H VBG Base Excess -23 L POC Mix VBG pCO2 Pt Tmp 15.6 L* O2 Delivery Device Not entered Crit Call To/Read Back Yes Blood Gas Notified Whom es Blood Gas Notified Time 15:33:42 Imagaing Radiology Impression Chest X-Ray 03/12/23 14:55 IMPRESSION: There are no acute findings. Electronically Signed: Michael Degroot MD at 15:12 EST , Assessment & Plan Assessment/Plan (1) Diabetic ketoacidosis: PLAN: Plan 1. DKA in the setting of type 1 diabetes with significant metabolic acidosis and pseudohyponatremia/ANA LAURA ? She has been unable to have her insulin pump as it is broken since she moved up here from [place] ? Continue with insulin drip ? Continue with aggressive IV fluids ? We will check her BMP every 4 hours and make adjustments as necessary ? Will admit to the ICU ? N.p.o. 2. Chest pain and back pain ? Initial troponins unremarkable and this is likely symptomatic from her DKA ? Her back pain was evaluated on 02/28/2023 with a plain film which did not demonstrate a fracture ? Can resume her home Percocet 3. HTN/HLD/peripheral vascular disease status post amputation, DVT ? She is on metoprolol and Lipitor however these medications cannot be verified because she would not provide us a list so we will need to call either her PCP or her pharmacy when it is open on Monday for verification ? In the meantime we will continue with these medications and monitor make adjustments as necessary ? She states that her amputation was due to having blood clots in her lower extremities will continue with Coumadin monitoring INR ? Continue with aspirin as well for the peripheral vascular disease 4. GERD ? Stable ? Continue with PPI DVT: Coumadin Charges/Coding Visit Charges Inpatient E&M: 83115 Init Hosp L3 03/12/23 1638 <Electronically signed by Wai Roberts MD> Cosigner Signature (if applicable): CC: Dr. Wai Roberts MD; No Primary Care Physician~ Signed [facility] Work Phone: 1(824) 440-368011-28-2023 Discharge summary Author Abad Dickson [facility] March 01, 2023 12:37am Note Date/Time February 28, 2023 9:10pm [facility] Medical Records Department [address] [place] [address] Emergency Department Summary 02/28/23 MR#: [id number] Acct: [id number] Name: VENANCIO FOREMAN Rep #:[id number] : 1985 37 From: Abad Dickson MD PCP: Care Physician,No Primary Status :REG ER Location: ED HPI History of Present Illness Chief Complaint: Back Informant: patient Narrative Narrative: Patient presents with primary complaint of lower back pain. Patient states that about a week ago she slipped and fell onto her buttock. Shehurt her back. It has been sore since. No new numbness tingling or weakness. She states she slipped because she has a left BKA and sometimes has instability. She is also had sciatica before. No fevers or chills. However the patient also has other issues. She recently just moved. Her insulin pump broke. She has been out of also all of her medicines for 3 days. This includes her Coumadin. She has not been using insulin subcu. Her meter has been reading high. She is also out of her metoprolol. 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 Patient had recently moved from [place]. I note that she was here about 2- 1/2 weeks ago. Her glucose pump is broken then to. But she tells me it just broke 3 days ago. She may have had a second pump. She does not have a local primary doctor. [facility] Medical History (Updated 02/28/23 @ 23:[address] Abad Dickson MD) Abnormal angiogram HTN (hypertension) Hyperlipidemia Peripheral artery disease Type 1 diabetes mellitus Home Medications aspirin 81 mg tablet,delayed release (Adult Low Dose Aspirin) 81 mg PO DAILY 02/09/23 [History Last Taken Unknown] atorvastatin 40 mg tablet 40 mg PO DAILY 02/09/23 [History Last Taken Unknown] cyclobenzaprine 10 mg tablet 10 mg PO BID PRN muscle spasm 02/09/23 [History Last Taken Unknown] esomeprazole magnesium 20 mg capsule,delayed release 20 mg PO DAILY 02/09/23 [History Last Taken Unknown] metoprolol succinate 100 mg tablet,extended release 24 hr 100 mg PO DAILY 02/09/23 [History Last Taken Unknown] pantoprazole 40 mg granules delayed-release for susp in packet 40 mg PO DAILY 02/09/23 [History Last Taken Unknown] pregabalin 300 mg capsule (Lyrica) 300 mg PO BID 02/09/23 [History Last Taken Unknown] warfarin 5 mg tablet 15 mg PO DAILY 02/09/23 [History Last Taken 02/08/23] zolpidem 10 mg tablet 10 mg PO QHS PRN insomnia 02/09/23 [History Last Taken Unknown] insulin lispro 100 unit/mL subcutaneous cartridge (Humalog U-100 Insulin) 1 - 100 unit subcut DAILY 02/28/23 [History Last Taken Unknown] atorvastatin 40 mg tablet 40 mg PO DAILY #30 tabs 03/01/23 [Rx Last Taken Unknown] cyclobenzaprine 10 mg tablet 10 mg PO TID PRN Muscle Spasm #20 TABLETS 03/01/23 [Rx Last Taken Unknown] esomeprazole magnesium 20 mg capsule,delayed release (Nexium 24HR) 20 mg PO DAILY #30 caps 03/01/23 [Rx Last Taken Unknown] hydrocodone-acetaminophen 5-325mg 5mg-325mg 1 tab PO Q6H PRN PRN Pain 3 days #10TABLETS 03/01/23 [Rx Last Taken Unknown] insulin lispro 100 unit/mL subcutaneous pen 10 unit (0.1 mL) subcut TID #15 mL 03/01/23 [Rx Last Taken Unknown] metoprolol succinate 100 mg tablet,extended release 24 hr (Toprol XL) 100 mg PO DAILY #30 tabs 03/01/23 [Rx Last Taken Unknown] pregabalin 300 mg capsule 300 mg PO BID #60 caps 03/01/23 [Rx Last Taken Unknown] warfarin 5 mg tablet 15 mg (3 x 5 mg) PO DAILY #90 tabs 03/01/23 [Rx Last Taken Unknown] Allergy/AdvReac Type Severity Reaction Status Date / Time morphine Allergy Intermediate Rash Verified 02/28/23 20:36 orange Allergy Rash Verified 02/28/23 20:36 Surgical History S/P BKA (below knee amputation) unilateral Social History Smoking Status: Never smoker ROS ROS ED Constitutional Constitutional ED: Denies chills or fever(s) Eyes Eyes: Denies change in vision ENT ENT ED: Denies rhinorrhea or sore throat Cardiovascular Cardiovascular: Denies chest pain or palpitations Respiratory/Chest Respiratory/Chest: Denies dyspnea or sputum Gastrointestinal Gastrointestinal: Reports nausea and other Details: Patient states she has occasional nausea but that might be from discomfort. She does not feel like this is DKA. ; Denies abdominal pain or vomiting Genitourinary Genitourinary ED: Reports urinary frequency; Denies dysuria or hematuria Musculoskeletal Musculoskeletal: Reports back pain Integumentary Denies rash Neurologic Neurologic: Reports paresthesias; Denies headache(s) Endocrine Endocrinology: Denies polydipsia or polyuria Hematologic/Lymphatic Hematologic/Lymphatic: Denies easy bleeding or easy bruising Allergic/Immunologic Allergic/Immunologic ED: Denies urticaria EXAM Physical Exam Narrative Exam Narrative: CONSTITUTIONAL: Patient is nontoxic in appearance. The patient looks comfortable. HEENT: No notable trauma. Mucous membranes do look dry. No sinus tenderness. No indication of pain with swallowing. No erythema. EYES: No conjunctival injection. No proptosis. CARDIOVASCULAR: Regular rate. Regular rhythm. No notable murmur. No JVD. RESPIRATORY: No respiratory distress. Breathing is unlabored. No wheezes. No rhonchi. No rales. No pain with a deep breath. She is not tachypneic. GASTROINTESTINAL: Not distended. Bowel sounds are normal. No tenderness. No guarding. No rebound. No palpable mass. No bruit. GENITOURINARY: No tenderness over the bladder. No CVA tenderness. MUSCULOSKELETAL: No swelling or trauma. She does have some tenderness to the lower lumbar area central as well as both sides. NEUROLOGICAL: Patient is alert and appropriate. No focal deficit noted. SKIN: No noted rashes. No diaphoresis. PSYCHIATRIC: Patient is calm. Mood is appropriate. Const Vital Signs: 02/28/23 20:40 02/28/23 22:32 02/28/23 22:34 Temperature 96.8 F L Temperature Source Temporal Pulse Rate 79 68 Respiratory Rate 18 16 Blood Pressure 210/102 H 180/96 H Blood Pressure Mean 138 124 Pulse Ox 99 98 Oxygen Delivery Method Room Air MDM MDM MDM Narrative Medical decision making narrative: My independent interpretation of the patient's three-view x-ray of the lumbar spine shows no sign of acute fracture or dislocation. Mild straightening. Final reading is pending. Patient's CBC shows mild elevation in the hemoglobin that may be due to hemoconcentration. Acetone level shows a small amount. But she also has not really been eating today. Patient's coagulation studies and metabolic panel were canceled due to difficulty running them. They are being redrawn at this time. Final reading of lumbar spine did come back negative. We were having trouble getting the patient's labs back. Her blood sugar read high at home. This is normally over 350 and occasionally over 500. But when we checked it it was only about 308. I will get her some insulin here. She hasgotten IV fluids. We are pending her metabolic panel. Since urine out this is showed no sign of infection. She did have increased glucose and increase of ketones. Basic metabolic panel shows elevated glucose at 408 which is higher than our stick. Sodium is slightly low but some of this is factitious. Her anion gap and bicarb are normal leaning heavily against DKA. She does have some ketosis likely from not eating. Her lactate is pending at this time. Patient's INR is normal at 0.7. Patient's lactic acid level is not able to be obtained. They have tried to run it. Because the patient has high cholesterol her serum is to like hemic to get an accurate reading. They will try to run it again but there are questions of its accuracy. Since the patient is eating and drinking, has normal bicarb and gap, I do not think this need to be needed at this time. We will get her something for her pains. I will write for her medications. But she is stronglyencouraged to call to get an appointment with her primary care physician. She has been in this area for about 5 weeks with multiple complex medical illnesses. I will help her with prescriptions but she still needs ongoing primary care andspecialty follow-up. I will refer her to the same physician she was referred toon her last visit. Patient's lactate is not able to be run. She has pain and we will get her meds for this. But she did fall about a week ago. She is eating and drinking without vomiting. She has no gap. Bicarb is normal. I do not think this represents DKA even though she has slight ketones. Lab Data Attestation: I reviewed the patient's lab results. Labs: Laboratory Results - last 24 hr 02/28/23 02/28/23 02/28/23 21:34 22:04 22:48 WBC 5.1 RBC 5.96 H Hgb 15.1 H Hct 44.0 MCV 73.8 L MCH 25.3 L MCHC 34.3 RDW Std Deviation 45.6 H RDW Coeff of Gerard 18.2 H Plt Count 183 MPV 11.2 Immature Gran % (Auto) 0.400 Neut % (Auto) 51.9 Lymph % (Auto) 40.2 [place] % (Auto) 5.3 Eos % (Auto) 1.2 Baso % (Auto) 1.0 Absolute Neuts (auto) 2.6 Absolute Lymphs (auto) 2.04 Nucleated RBC % 0 PT Cancelled 10.1 L INR Cancelled 0.7 Sodium Cancelled 131 L Potassium Cancelled 4.1 Chloride Cancelled 99 Carbon Dioxide Cancelled 23.0 Anion Gap Cancelled 9 BUN Cancelled 10 Creatinine Cancelled 0.52 L Estim Creat Clear Calc Cancelled 140.01 Est GFR (MDRD) Af Amer Cancelled 170 Est GFR (MDRD) Non-Af Cancelled 140 BUN/Creatinine Ratio Cancelled 19.1 Glucose Cancelled 408 H Lactic Acid Cancelled Calcium Cancelled 7.6 L Urine Color Straw Urine Clarity Clear Urine pH 6.5 Ur Specific Margaret 1.010 Urine Protein 30 H Urine Glucose (UA) 1000 H Urine Ketones 50 H Urine Occult Blood Negative Urine Nitrite Negative Urine Bilirubin Negative Urine Urobilinogen Normal Ur Leukocyte Esterase Negative Urine RBC 0 SEEN Urine WBC 0-5 SEEN Ur Squamous Epith Cells 0-5 SEEN Urine Bacteria 0 SEEN Urine Mucus 0 SEEN Acetone Level SMALL H POC Glucose 02/28/23 23:07 WBC RBC Hgb Hct MCV MCH MCHC RDW Std Deviation RDW Coeff of Gerard Plt Count MPV Immature Gran % (Auto) Neut % (Auto) Lymph % (Auto) [place] % (Auto) Eos % (Auto) Baso % (Auto) Absolute Neuts (auto) Absolute Lymphs (auto) Nucleated RBC % PT INR Sodium Potassium Chloride Carbon Dioxide Anion Gap BUN Creatinine Estim Creat Clear Calc Est GFR (MDRD) Af Amer Est GFR (MDRD) Non-Af BUN/Creatinine Ratio Glucose Lactic Acid Calcium Urine Color Urine Clarity Urine pH Ur Specific Margaret Urine Protein Urine Glucose (UA) Urine Ketones Urine Occult Blood Urine Nitrite Urine Bilirubin Urine Urobilinogen Ur Leukocyte Esterase Urine RBC Urine WBC Ur Squamous Epith Cells Urine Bacteria Urine Mucus Acetone Level POC Glucose 305 H Radiography Diagnostic Testing: Clinical Impression(s) from Imaging Studies Lumbar Spine X-Ray 02/28/23 21:07 IMPRESSION: Normal x-ray examination of the lumbar spine. Electronically Signed: Feliberto Reyes MD at 22:37 EST , EKG Initial EKG: Comments: My independent interpretation of the patient's EKG shows a normal sinus rhythm with a rate of 72. No ectopy. No acute ST elevation or depression. OR interval, QRS duration and QTc are normal. Discharge Plan Triage Chief Complaint: Back Other Complaint: Lower Extremity Injury ED Provider: Abad Dickson Dx/Rx/DC Orders Clinical Impression: History of diabetes mellitus, type I, Lower back pain, Fall from slip, trip, orstumble, Hyperglycemia, Diabetic neuropathy Instructions: ED Back Pain (Acute or Chronic), Diabetic Neuropathy Prescriptions: New cyclobenzaprine 10 mg tablet 10 mg PO TID PRN (Reason: Muscle Spasm) Qty: 20 0RF atorvastatin 40 mg tablet 40 mg PO DAILY Qty: 30 0RF esomeprazole magnesium [Nexium 24HR] 20 mg capsule,delayed release(DR/EC) 20 mg PO DAILY Qty: 30 0RF metoprolol succinate [Toprol XL] 100 mg tablet extended release 24 hr 100 mg PO DAILY Qty: 30 0RF pregabalin 300 mg capsule 300 mg PO BID Qty: 60 0RF warfarin 5 mg tablet 15 mg PO DAILY Qty: 90 0RF insulin lispro 100 unit/mL insulin pen 10 unit subcut TID Qty: 15 0RF Rx Instructions: follow your sliding scale hydrocodone-acetaminophen [hydrocodone-acetaminophen] 5-325 mg tablet 1 tab PO Q6H PRN PRN (Reason: Pain) 3 Days Qty: 10 0RF No Action warfarin 5 mg tablet 15 mg PO DAILY Patient Comments: Out of medication. cyclobenzaprine 10 mg tablet 10 mg PO BID PRN (Reason: muscle spasm) Patient Comments: Out of medication. atorvastatin 40 mg tablet 40 mg PO DAILY Patient Comments: Out of medication. pregabalin [Lyrica] 300 mg capsule 300 mg PO BID Patient Comments: Out of medication. pantoprazole [address] for susp in packet 40 mg PO DAILY Patient Comments: Out of medication. zolpidem 10 mg tablet 10 mg PO QHS PRN (Reason: insomnia) Patient Comments: Out of medication. metoprolol succinate 100 mg tablet extended release 24 hr 100 mg PO DAILY Patient Comments: Out of medication. esomeprazole magnesium 20 mg capsule,delayed release(DR/EC) 20 mg PO DAILY Patient Comments: Out of medication. aspirin [Adult Low Dose Aspirin] 81 mg tablet,delayed release (DR/EC) 81 mg PO DAILY Patient Comments: Out of medication. Humalog U-100 Insulin 100 unit/mL cartridge 1 - 100 unit subcut DAILY Patient Comments: Pump. Currently pump is broken and is out of medication. Primary Care Provider: Care Physician,No Primary Referrals: Rehana Tristan MD [Med Staff - Medical Office Coordinator] - As soon as possible (Please call in the morning for an appointment as soon as possible.) Sergio Sutherland MD [Med Staff - Active Staff] - 1-2 Weeks Judith Krishna MD [Med Staff - Active Staff] - As soon as possible Care Physician,No Primary [Primary Care Provider] - Disposition Disposition: Home, Self Care What to do if you have Problems For any increased pain, shortness of breath, bleeding, nausea or vomiting, chestpain, or any unexpected problems, contact your Primary Care Provider. Call [facility] ([phone]) or report to the closest Emergency Room. Call 911 if necessary. 03/01/2336 <Electronically signed by Abad Dickson MD> Cosigner Signature (if applicable): CC: No Primary Care Physician ~ Signed [facility] Work Phone: 1(468) 255-667411-09-2023 Discharge summary Author Babar Ribera [facility] February 09, 2023 5:34am Note Date/Time February 09, 2023 2 :04am [facility] Medical Records Department [address] [place] [address] Emergency Department Summary 02/09/23 MR#: [id number] Acct: [id number] Name: VENANCIO FOREMAN Rep #:[id number] : 1985 37 From: Babar Ribera MD PCP: Care Physician,No Primary Status :REG ER Location: ED HPI History of Present Illness Chief Complaint: Upper Extremity Injury Informant: patient Narrative Narrative: Patient presents to the ER 1:30 AM. She states she has had pain in her right foot for the past month. She denies any known injury. Hurts more to walk on that hurts without walking. For the last 3 to 4 days, she has had pain and numbness in her right forearm and into the hand, mostly at the radial aspect of her hand/fingers. Denies any known injury. Denies any neck pain, headache, vision trouble, facial neurologic symptoms, speech trouble. No paresthesias or weakness in the lower extremities. Has had a BKA on the left lower extremity inthe past due to poor circulation and peripheral arterial disease that she stateshas been diagnosed in the right. She is on warfarin. She refers to PAD when she states she was diagnosed with blood clots, but she does not know if she had DVT or arterial clot that led to amputation. She is a type I diabetic. She hadan insulin pump that broke 3 to 4 days ago, and she states her glucose meter also broke so she has not been able to check her blood sugar recently. 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 [facility] Medical History (Updated 02/09/23 @ 05:[address] Babar Ribera MD) Abnormal angiogram HTN (hypertension) Hyperlipidemia Peripheral artery disease Type 1 diabetes mellitus Home Medications aspirin 81 mg tablet,delayed release (Adult Low Dose Aspirin) 81 mg PO DAILY 02/09/23 [History Last Taken Unknown] atorvastatin 40 mg tablet 40 mg PO DAILY 02/09/23 [History Last Taken Unknown] cyclobenzaprine 10 mg tablet 10 mg PO BID PRN muscle spasm 02/09/23 [History Last Taken Unknown] esomeprazole magnesium 20 mg capsule,delayed release 20 mg PO DAILY 02/09/23 [History Last Taken Unknown] metoprolol succinate 100 mg tablet,extended release 24 hr 100 mg PO DAILY 02/09/23 [History Last Taken Unknown] oxycodone-acetaminophen 5 mg-325 mg tablet 1 tab PO Q6H PRN PRN Pain 4 days #16 TABLETS 02/09/23 [Rx Last Taken Unknown] pantoprazole 40 mg granules delayed-release for susp in packet 40 mg PO DAILY 02/09/23 [History Last Taken Unknown] pregabalin 300 mg capsule (Lyrica) 300 mg PO BID 02/09/23 [History Last Taken Unknown] warfarin 5 mg tablet 15 mg PO DAILY 02/09/23 [History Last Taken 02/08/23] zolpidem 10 mg tablet 10 mg PO QHS PRN insomnia 02/09/23 [History Last Taken Unknown] Allergy/AdvReac Type Severity Reaction Status Date / Time morphine Allergy Intermediate Rash Verified 02/09/23 01:13 orange Allergy Rash Verified 02/09/23 01:13 Surgical History S/P BKA (below knee amputation) unilateral Social History Smoking Status: Never smoker ROS ROS ED Constitutional Constitutional ED: Denies chills or fever(s) Eyes Eyes: Denies change in vision or diplopia ENT ENT ED: Denies rhinorrhea or sore throat Cardiovascular Cardiovascular: Denies chest pain or palpitations Respiratory/Chest Respiratory/Chest: Denies cough or dyspnea Gastrointestinal Gastrointestinal: Denies abdominal pain, diarrhea, nausea or vomiting Genitourinary Genitourinary ED: Denies dysuria or hematuria Musculoskeletal Musculoskeletal: Reports extremity pain; Denies neck pain Integumentary Denies Abrasions, rash or wounds Neurologic Neurologic: Reports paresthesias RUE; Denies weakness Psychiatric Psychiatric: Denies suicidal thoughts EXAM Physical Exam Const Vital Signs: 02/09/23 01:22 Temperature 97.9 F Temperature Source Oral Pulse Rate 101 H Respiratory Rate 18 Blood Pressure 167/92 H Blood Pressure Mean 117 Pulse Ox 98 Oxygen Delivery Method Room Air Positive well nourished and well developed General Appearance ED: well developed and NAD HEENT Reports moist mucous membranes normocephalic and atraumatic Eyes PERRL and EOMs intact bilaterally Neck full ROM and supple Resp normal respiratory effort and clear to auscultation bilaterally Cardio regular rate, regular rhythm and no murmurs GI non-tender and non-distended Auscultation: normoactive bowel sounds Palpation: soft Back/Spine normal ROM and normal to inspection General Back: other FROM Extremity normal to inspection and full ROM Extremity Narrative: Right upper extremity: Superficial skin level tenderness with normal inspection right forearm and thumb and index finger. Sensation intact. Motor intact. Allcompartments soft and nondistended. Full range of motion of all joints without apparent discomfort. Status post left BKA with prosthesis in place. Right lower extremity: All compartment soft and nondistended, full range of motion. Normal coloration, pink. Brisk cap refill 2 seconds distally all toes. No signs of any necrotic tissue or wounds. Possibly mildly tender, patient cannot tell if it is worse or not with palpation, right great toe and fifth metatarsal laterally. Plantar foot normal on inspection. Not able to easily palpate dorsalis pedis pulse on right foot. Easily dopplerable. 2+/4 right radial pulse. General Extremety ED: Negative for edema General Extremity: Negative for edema Neuro oriented x3, no focal motor deficits and no sensory deficits noted Sensorium / Orientation: alert Motor Exam: strength 5/5 throughout Psych thought process normal Mood & Affect: anxious Skin no wounds Rashes: no rashes MDM MDM MDM Narrative Medical decision making narrative: At this time there is no objective evidence of any acute ischemic limb. Her exam is very benign and she is very anxious. Stress fracture of bones of the right foot in differential so x-ray obtained, 3 views on my interpretation negative for anything acute. She is perfusing toes well. With regards to her right upper extremity, radiculopathy or peripheral neuropathy with being in the differential here, but it is very difficult to evaluate her. She states that hurts both volarly and dorsally in the forearm, but she has more objective tenderness dorsally than anywhere else. A lot of times when I palpate differentareas she cannot tell if it hurts worse or if it just hurts. She is neurovascularly intact distally objectively. All compartments are soft and nondistended. I do not think this is cerebral in etiology. Given her history of diabetes and the fact that she has no idea what her blood sugars have been, Idid do some basic labs with an INR, which she last had checked 1-2 months ago, and gave her some IV fluids and something for pain. Initially offered her an oral Percocet but she refused this and wanted something IV, I gave her fentanyl. She wanted something more than that on reevaluation. Labs were delayed becauseshe was a very difficult stick, and then because her blood was very lipemic, andlab requested a redraw. I reviewed her results. Therapeutic on her warfarin. She has mild hyperkalemia but this is due to moderate hemolysis she does not have acute renal insufficiency. She was hyperglycemic which we treated with insulin according to her sliding scale, this did come down some, she was given another dose of fentanyl for pain I see no reason to give her medicines like hydromorphone for basically what is not verifiable pain at this time, she does not appear to have be having acute ischemic pain or claudication. The pain in her right upper extremity suggests radiculopathy or peripheral neuropathy. I advised her I was happy to give her a second dose of fentanyl and prescribe her some short course of pain medication, and refer her to primary care, cardiology,and vascular, all of whom she saw in [place]. She is appreciative of that and is agreeable with this plan. Lab Data Attestation: I reviewed the patient's lab results. Labs: Impressions Foot X-Ray 02/09/23 01:48 IMPRESSION: No acute finding. Small calcaneal Achilles enthesophyte.. Electronically Signed: Flavio Warner MD at 4:06 EST Reading Location ID and State: [facility] / [place] Tel , Service support , 02/09/23 01:48 Foot min 3 Views [RAD] Stat Laboratory Results 02/09/23 02/09/23 02/09/23 03:20 03:35 04:05 WBC 7.0 RBC 6.23 H Hgb 15.9 H Hct 44.7 MCV 71.7 L MCH 25.5 L MCHC 35.6 RDW Std Deviation 49.1 H RDW Coeff of Gerard 20.8 H Plt Count 250 MPV TNP Immature Gran % (Auto) 0.300 Neut % (Auto) 69.4 Lymph % (Auto) 23.6 [place] % (Auto) 5.0 Eos % (Auto) 1.0 Baso % (Auto) 0.7 Absolute Neuts (auto) 4.9 Absolute Lymphs (auto) 1.65 Nucleated RBC % 0 Differential Comment SCANNED Anisocytosis 1+ PT 25.0 H INR 2.2 Sodium 130 L Potassium 5.2 H Chloride 96 L Carbon Dioxide 23.0 Anion Gap 11 BUN 10 Creatinine 0.75 Estim Creat Clear Calc 97.08 Est GFR (MDRD) Af Amer 112 Est GFR (MDRD) Non-Af 93 BUN/Creatinine Ratio 13.3 Glucose 415 H Calcium 8.3 L POC Glucose 389 H Discharge Plan Triage Chief Complaint: Upper Extremity Injury ED Provider: Babar Ribera Dx/Rx/DC Orders Clinical Impression: Neuropathic pain of upper extremity, History of peripheral arterial disease, Pain in right foot, Warfarin-induced coagulopathy Instructions: Treating Peripheral Neuropathy Prescriptions: New oxycodone-acetaminophen [oxycodone-acetaminophen] 5-325 mg tablet 1 tab PO Q6H PRN PRN (Reason: Pain) 4 Days Qty: 16 0RF No Action warfarin 5 mg tablet 15 mg PO DAILY cyclobenzaprine 10 mg tablet 10 mg PO BID PRN (Reason: muscle spasm) atorvastatin 40 mg tablet 40 mg PO DAILY pregabalin [Lyrica] 300 mg capsule 300 mg PO BID pantoprazole [address] for susp in packet 40 mg PO DAILY zolpidem 10 mg tablet 10 mg PO QHS PRN (Reason: insomnia) metoprolol succinate 100 mg tablet extended release 24 hr 100 mg PO DAILY esomeprazole magnesium 20 mg capsule,delayed release(DR/EC) 20 mg PO DAILY aspirin [Adult Low Dose Aspirin] 81 mg tablet,delayed release (DR/EC) 81 mg PO DAILY Primary Care Provider: Care Physician,No Primary Referrals: Rehana Tristan MD [Med Staff - Medical Office Coordinator] - (primary care) Sergio Sutherland MD [Med Staff - Active Staff] - Judith Krishna MD [Med Staff - Active Staff] - Care Physician,No Primary [Primary Care Provider] - Disposition Disposition: Home, Self Care What to do if you have Problems For any increased pain, shortness of breath, bleeding, nausea or vomiting, chestpain, or any unexpected problems, contact your Primary Care Provider. Call [facility] ([phone]) or report to the closest Emergency Room. Call 911 if necessary. 02/09/23 8990 <Electronically signed by Babar Ribera MD> Cosigner Signature (if applicable): CC: Dr. Rehana Tristna MD; Dr. Sergio Sutherland MD; Dr. Judith Krishna MD; NoPrimary Care Physician ~ Signed [facility] Work Phone: Consult note Author Jody Alexander [facility] March 15, 2023 9:54am Note Date/Time March 15, 2023 9:54am [facility] Medical Records Department [address] [place] [address] Counseling Note - Pharmacy 03/15/23 0954 MR#: [id number] Acct: [id number] Name: VENANCIO FOREMAN Rep #:[id number] : 1985 37 From: Jody Alexander PCP: Care Physician,No Primary Status :[facility]M IN [facility] Pharmacy Service has performed discharge medication reconciliation for this patient. The patient's discharge medication list was reviewed for discrepancies and discrepancies were resolved. Medications at Discharge Home Medications aspirin 81 mg tablet,delayed release (Adult Low Dose Aspirin) 81 mg PO DAILY 30 days #30 tabs 03/14/23 atorvastatin 40 mg tablet 40 mg PO DAILY 30 days #30 tabs 03/14/23 blood sugar diagnostic (Blood Glucose Test strips) #50 ea 03/14/23 hydrocodone-acetaminophen 5-325mg 5mg-325mg 1 tab PO Q6H PRN PRN Pain 3 days #12TABLETS 03/14/23 insulin syr/ndl U100 half jesús 0.3 mL 30 gauge x 1/2 #100 ea 03/14/23 lancets 30 gauge #120 units 03/14/23 metoprolol succinate 100 mg tablet,extended release 24 hr (Toprol XL) 100 mg PO DAILY 30 days #30 tabs 03/14/23 pantoprazole 40 mg granules delayed-release for susp in packet 40 mg PO DAILY 30days #30 ea 03/14/23 pregabalin 300 mg capsule 300 mg PO BID 30 days #60 caps 03/14/23 warfarin 5 mg tablet 5 mg PO DAILY 30 days #30 tabs 03/14/23 zolpidem 10 mg tablet 10 mg PO QHS PRN insomnia 30 days #30 tabs 03/14/23 insulin glargine 100 unit/mL subcutaneous solution 30 unit (0.3 mL) subcut DAILY#10 mL 03/15/23 insulin lispro 100 unit/mL subcutaneous solution (Humalog U-100 Insulin) 10 unit(0.1 mL) subcut TID #10 mL 03/15/23 03/15/23 0954 <Electronically signed by Jody Alexander> Date _ Jody Alexander Cosigner Signature (if applicable): Date CC: ~ Signed [facility] Work Phone: Discharge summary Author [facility]s [facility] May 15, 2023 10:58am Note Date/Time May 15, 2023 10:47am [facility] Medical Records Department [address] [place] [address] Instructions for Home/Discharge Instructions 05/15/23 1047 MR#: [id number] Acct: [id number] Name: VENANCIO FOREMAN Rep #:[id number] : 1985 37 From: Jesús Sales DO PCP: [facility] St atus:ADM IN Discharge Instructions Diet Discharge Diet: 1800 Calorie Control Diet Activity Discharge Activity: Return to Normal Activity Weight Bearing Status: Full weight bearing Follow Up Care Test Results: Test results from this visit will be discussed in further detail at your follow- up appointment, if applicable. Discharge Plan Admission Admit Date/Time: 05/14/23 17:30 Primary Reason for Your Visit: DKA Attending Provider: Jesús Sales [facility] Providers: Annemarie Rizzo Discharge Orders/Prescriptions Prescriptions: New insulin glargine-yfgn 100 unit/mL (3 mL) Insulin Pen 35 unit subcut BIDCM Qty: 0 0RF insulin lispro [Humalog KwikPen Insulin] 100 unit/mL insulin pen 35 unit subcut TID Qty: 15 0RF Continued atorvastatin 40 mg tablet 40 mg PO DAILY 30 Days Qty: 30 0RF metoprolol succinate [Toprol XL] 100 mg tablet extended release 24 hr 100 mg PO DAILY 30 Days Qty: 30 0RF aspirin [Adult Low Dose Aspirin] 81 mg tablet,delayed release (DR/EC) 81 mg PO DAILY 30 Days Qty: 30 0RF zolpidem 10 mg tablet 10 mg PO QHS PRN (Reason: insomnia) 30 Days Qty: 30 0RF pregabalin 300 mg capsule 300 mg PO BID 30 Days Qty: 60 0RF warfarin 5 mg tablet 5 mg PO DAILY Qty: 30 0RF pantoprazole [address] for susp in packet 40 mg PO BID No Action (DME) lancets 30 gauge misc See Rx Instructions .Route Qty: 120 0RF Rx Instructions: As directed (DME) Blood Glucose Test Strip See Rx Instructions .Route Qty: 50 3RF Rx Instructions: As directed (DME) insulin syr/ndl U100 half jesús 0.3 mL 30 gauge x 1/2 syringe See Rx Instructions .Route Qty: 100 0RF Rx Instructions: As directed Referrals / Follow Up: [facility] [Primary Care Provider] - Within 2 Weeks Disposition Disposition (needs filled in before D/C Order can be placed): Home, Self Care 05/15/23 1058<Electronically signed by Jesús Sales DO>Jesús Sales DO CC: Dr. Annemarie Rizzo MD; [facility] ~ Signed [facility] Work Phone: Evaluation + Plan note No data available for this section [facility] Evaluation noteNo assessment information available [facility] Work Phone: Evaluation note* Diagnosis Onset Date Resolution Status Diabetic ketoacidosis acute Hyponatremia acute Type 1 diabetes mellitus acu te HTN (hypertension) chronic [facility] Work Phone: Evaluation note* Diagnosis Onset Date Resolution Status Type 1 diabetes mellitus acu te Diabetic ketoacidosis resolv ed Hyponatremia resolved [facility] Work Phone: Evaluation note* Diagnosis Onset Date Resolution Status Type 1 diabetes mellitus acu te Diabetic ketoacidosis resolv ed Hyponatremia resolved Chronic anticoagulation acut e Diabetic keto-acidosis acute Headache acute History of below-knee amputa tion of left lower extremity acute History of peripheral arterial disease acute [facility] Work Phone: Evaluation note* Diagnosis Onset Date Resolution Status Type 1 diabetes mellitus acu te Diabetic ketoacidosis resolv ed Hyponatremia resolved Chronic anticoagulation acut e Diabetic keto-acidosis acute DVT (deep venous thrombosis) acute Headache acute History of below-knee amputa tion of left lower extremity acute History of peripheral arterial disease acute Type 1 diabetes mellitus acu te [facility] Work Phone: Evaluation note* Diagnosis Onset Date Resolution Status Type 1 diabetes mellitus acu te Diabetic ketoacidosis resolv ed Hyponatremia resolved Chronic anticoagulation acut e History of below-knee amputa tion of left lower extremity acute History of peripheral arterial disease acute Type 1 diabetes mellitus acu te Diabetic keto-acidosis resol laure [facility] Work Phone: Evaluation note* Diagnosis Onset Date Resolution Status Chronic anticoagulation acut e History of below-knee amputa tion of left lower extremity acute History of peripheral arterial disease acute Type 1 diabetes mellitus chr onic Diabetic keto-acidosis resol laure HTN (hypertension) chronic Microalbuminuria chronic Overweight chronic Type 1 diabetes mellitus chr onic Anemia acute Depression with anxiety acut e Establishing care with new doctor, encounter for acute Hyperlipidemia acute Menorrhagia acute Neuropathy acute Peripheral artery disease ac [place] Recurrent vomiting acute HTN (hypertension) chronic Type 1 diabetes mellitus chr onic [facility] Work Phone: Evaluation note* Diagnosis Peripheral vascular disease- Primary Unspecified peripheral vascular disease Pain in right leg documented in this encounter [facility] Work Phone: History and physical note Author Wai Roberts [facility] March 12, 2023 4:38pm Note Date/Time March 12, 2023 4:38pm [facility] Medical Records Department [address] [place] [address] H&P Exam - Hospitalist 03/12/23 1627 MR#: [id number] Acct: [id number] Name: VENANCIO FOREMAN Rep #:[id number] : 1985 37 From: Wai holcomb MD PCP: Care Physician,No Primary Status :ADM IN Location: ICU ICU07-1 HPI - General General Date of Admission: 03/12/23 HPI Narrative VENANCIO FOREMAN, is a 37 F who presents to the hospital in DKA. She has been feeling worse and getting weaker for the last couple of days and has been havingsignificant back pain after a fall on 02/28. She was in the ER for that episodeand had a lumbar x-ray which did not demonstrate a fracture. Today she is significantly tachycardic and acidotic and she states that she is a type I diabetic and normally has an insulin pump however she and her moved up here with her 3 kids from [place] about a month and a half ago and have beenunable to get Medicaid started and so she has not been able to go to a PCP or anendocrinologist to get a new insulin pump so she has been trying to cover her blood sugars at home. She denies any recent illnesses, no fevers or chills. She is having some nausea today as well as vomiting but no diarrhea. In the ER she does have urine ketones as well as acetones, her urine glucose is over thousand her pH is 7.18 with bicarb of 8 and an anion gap of 28. Her creatinineis elevated at 1.36, her baseline is 0.7 so she does have an ANA [facility]URA[facility] Medical History Abnormal angiogram Chronic anticoagulation HTN (hypertension) Hyperlipidemia Peripheral artery disease Type 1 diabetes mellitus Home Medications aspirin 81 mg tablet,delayed release (Adult Low Dose Aspirin) 81 mg PO DAILY 02/09/23 [History Last Taken Unknown] pantoprazole 40 mg granules delayed-release for susp in packet 40 mg PO DAILY 02/09/23 [History Last Taken Unknown] zolpidem 10 mg tablet 10 mg PO QHS PRN insomnia 02/09/23 [History Last Taken Unknown] insulin lispro 100 unit/mL subcutaneous cartridge (Humalog U-100 Insulin) 1 - 100 unit subcut DAILY 02/28/23 [History Last Taken Unknown] atorvastatin 40 mg tablet 40 mg PO DAILY #30 tabs 03/01/23 [Rx Last Taken Unknown] cyclobenzaprine 10 mg tablet 10 mg PO TID PRN Muscle Spasm #20 TABLETS 03/01/23 [Rx Last Taken Unknown] esomeprazole magnesium 20 mg capsule,delayed release (Nexium 24HR) 20 mg PO DAILY #30 caps 03/01/23 [Rx Last Taken Unknown] hydrocodone-acetaminophen 5-325mg 5mg-325mg 1 tab PO Q6H PRN PRN Pain 3 days #10TABLETS 03/01/23 [Rx Last Taken Unknown] insulin lispro 100 unit/mL subcutaneous pen 10 unit (0.1 mL) subcut TID #15 mL 03/01/23 [Rx Last Taken Unknown] metoprolol succinate 100 mg tablet,extended release 24 hr (Toprol XL) 100 mg PO DAILY #30 tabs 03/01/23 [Rx Last Taken Unknown] pregabalin 300 mg capsule 300 mg PO BID #60 caps 03/01/23 [Rx Last Taken Unknown] warfarin 5 mg tablet 15 mg (3 x 5 mg) PO DAILY #90 tabs 03/01/23 [Rx Last Taken Unknown] Allergy/AdvReac Type Severity Reaction Status Date / Time morphine Allergy Intermediate Rash Verified 02/28/23 20:36 orange Allergy Rash Verified 02/28/23 20:36 Family History (Updated 03/12/23 @ 16:[address] Wai Roberts MD) Other Cancer Surgical History S/P BKA (below knee amputation) unilateral Social History Smoking Status: Never smoker ROS Constitutional Constitutional: Reports fatigue and weakness; Denies chills, fever(s) or malaise Eyes Eyes: Denies blurry vision ENT HEENT: Denies headache(s) or nasal discharge Cardiovascular Cardiovascular: Reports chest pain; Denies dyspnea on exertion or syncope Respiratory/Chest Respiratory/Chest: Reports shortness of breath at rest; Denies cough or shortness of breath with exertion Gastrointestinal Gastrointestinal: Reports nausea and vomiting; Denies constipation or diarrhea Genitourinary Genitourinary: Denies dysuria Musculoskeletal Musculoskeletal: Reports back pain Neurologic Neurologic: Denies focal weakness, numbness or tremor(s) Psychiatric Psychiatric: Denies anxiety or depression Vital Signs Vital Signs Vital Signs: 03/12/23 13:34 03/12/23 14:55 03/12/23 14:55 Temperature 96.7 F L Temperature Source Temporal Pulse Rate 140 H 134 H Respiratory Rate 26 H 34 H Respiratory Effort Labored Respiratory Pattern Tachypnea Blood Pressure 131/88 H 139/101 H Blood Pressure Mean 102 113 Pulse Ox 100 100 Oxygen Delivery Method Room Air Room Air 03/12/23 16:14 03/12/23 16:14 Temperature Temperature Source Pulse Rate 115 H 115 H Respiratory Rate 26 H Respiratory Effort Respiratory Pattern Blood Pressure 170/94 H Blood Pressure Mean 119 Pulse Ox 100 Oxygen Delivery Method Weight Weight: 180 lb Body Mass Index (BMI) 29.0 Physical Exam Narrative General: Alert, Oriented x3, Cooperative, moderately ill HEENT: Atraumatic, PERRLA, EOMI, Normocephalic Oral: Dry mucosa Neck: Supple, No JVD Lungs: Diminished, Normal air movement, No rhonchi, No wheeze, No rales Cardiovascular: Tachycardic, Regular Rhythm, Normal S1, Normal S2, No murmurs Abdomen: Soft, Non Tender, Non-Distended, No Hepato-splenomegaly Extremities: No edema, Capillary Refill Less than 3 Seconds, left BKA Skin: No rashes, No breakdown Musculoskeletal: Tenderness to palpation in her lumbar spine both midline as well as bilateral paraspinal areas no bruising, or step-offs Neurological: Cranial nerves II-XII grossly intact, Motor Exam 5/5 strength throughout, Sensory exam intact to light touch and pain Psych/Mental Status: Flat affect Results Lab / Micro Data 03/12/23 14:41 03/12/23 14:41 Labs: Laboratory Results - last 24 hr 03/12/23 13:44: POC Glucose 489 H* 03/12/23 14:35: Urine Color Yellow, Urine Clarity Sl. Cloudy, Urine pH 5.0, Ur Specific Margaret 1.025, Urine Protein 30 H, Urine Glucose (UA) 1000 H, Urine Ketones 150 A*, Urine Occult Blood 250 H, Urine Nitrite Negative, Urine Bilirubin Negative, Urine Urobilinogen Normal, Ur Leukocyte Esterase Negative, Urine RBC 50-100 SEEN, Urine WBC 0 SEEN, Ur Squamous Epith Cells 0-5 SEEN, UrineBacteria 0 SEEN, Urine Mucus 0 SEEN 03/12/23 14:41: WBC 11.1 H, RBC 7.25 H, Hgb 18.0 H*, Hct 53.4 H, MCV 73.7 L, MCH24.8 L, MCHC 33.7, RDW Std Deviation 47.1 H, RDW Coeff of Gerard 19.3 H, Plt Count 447, MPV 10.7, Immature Gran % (Auto) 0.400, Neut % (Auto) 78.9 H, Lymph % (Auto) 15.5 L, [place] % (Auto) 4.7, Eos % (Auto) 0.3, Baso % (Auto) 0.2, Absolute Neuts (auto) 8.8 H, Absolute Lymphs (auto) 1.72, Nucleated RBC % 0, Sodium 124 L, Potassium 3.8, Chloride 88 L, Carbon Dioxide 8.0 L*, Anion Gap 28 H, BUN 37 H,Creatinine 1.36 H, Estim Creat Clear Calc 53.53, Est GFR (MDRD) Af Amer 57 L, Est GFR (MDRD) Non-Af 47 L, BUN/Creatinine Ratio 27.2 H, Glucose 479 H*, Lactic Acid 0.8, Calcium 9.1, Troponin I High Sens 21, Lipase 64, Acetone Level MODERATE H ABG Data ABG results: ABG 03/12/23 15:32 Specimen Type KRYSTAL Sample Site Not entered VBG pH 7.18 L* VBG pO2 46 H VBG HCO3 6 L VBG Total CO2 6 L VBG O2 Sat (Calc) 73 H VBG Base Excess -23 L POC Mix VBG pCO2 Pt Tmp 15.6 L* O2 Delivery Device Not entered Crit Call To/Read Back Yes Blood Gas Notified Whom es Blood Gas Notified Time 15:33:42 Imagaing Radiology Impression Chest X-Ray 03/12/23 14:55 IMPRESSION: There are no acute findings. Electronically Signed: Michael Degroot MD at 15:12 EST , Assessment & Plan Assessment/Plan (1) Diabetic ketoacidosis: PLAN: Plan 1. DKA in the setting of type 1 diabetes with significant metabolic acidosis and pseudohyponatremia/ANA LAURA ? She has been unable to have her insulin pump as it is broken since she moved up here from [place] ? Continue with insulin drip ? Continue with aggressive IV fluids ? We will check her BMP every 4 hours and make adjustments as necessary ? Will admit to the ICU ? N.p.o. 2. Chest pain and back pain ? Initial troponins unremarkable and this is likely symptomatic from her DKA ? Her back pain was evaluated on 02/28/2023 with a plain film which did not demonstrate a fracture ? Can resume her home Percocet 3. HTN/HLD/peripheral vascular disease status post amputation, DVT ? She is on metoprolol and Lipitor however these medications cannot be verified because she would not provide us a list so we will need to call either her PCP or her pharmacy when it is open on Monday for verification ? In the meantime we will continue with these medications and monitor make adjustments as necessary ? She states that her amputation was due to having blood clots in her lower extremities will continue with Coumadin monitoring INR ? Continue with aspirin as well for the peripheral vascular disease 4. GERD ? Stable ? Continue with PPI DVT: Coumadin Charges/Coding Visit Charges Inpatient E&M: 39205 Init Hosp L3 03/12/23 1638 <Electronically signed by Wai Roberts MD> Cosigner Signature (if applicable): CC: Dr. Wai Roberts MD; No Primary Care Physician~ Signed [facility] Work Phone: Hospital Discharge instructions Additional Instructions Date of Discharge: 05/15/23[facility] Work Phone: Hospital Discharge instructions Additional Instructions 1. Contact [facility] tomorrow to be seen later in the week for for blood pressure recheck and PT/INR.[facility] Work Phone: Hospital Discharge instructions Additional Instructions Thank you for trusting us with your care today! Your presentation is consistent with lumbar radiculopathy. Please take Tylenol (2 pills, 650 mg), ibuprofen (2 pills, 400 mg) every 6 hours as needed for pain and fever control. Please take Percocet in lieu of Tylenol if the above pain regimen does not control your pain. Please not take Percocet and Tylenol together as Percocet contains Tylenol. Please return to the emergency department if your symptoms change or worsen. Specifically develop bowel or bladder incontinence, urinary tension, decreased sensation to prior parts, decreased movement or sensation in your legs. Please follow with your primary care physician for further outpatient evaluation and management.[facility] Work Phone: Hospital Discharge instructions* Attachments The following attachments cannot be sent through Care Everywhere. * Peripheral artery disease and claudication (Salvadorean) documented in this [facility] Work Phone: Chief Complaint and Reason for Visit Chief Complaint right arm and leg pa in Chief Complaint right arm and leg pa in Neuropathy pain, back pain Chief Complaint right arm and leg pa in Neuropathy pain, back pain DKA DKA Reason for Visit Diabetic ketoacidosi s Hyponatremia Type 1 diabetes mellitus HTN (hypertension) Chief Complaint right arm and leg pa in Neuropathy pain, back pain DKA DKA DKA DKA Reason for Visit Diabetic ketoacidosi s Hyponatremia Type 1 diabetes mellitus HTN (hypertension) Chief Complaint right arm and leg pa in Neuropathy pain, back pain DKA DKA DKA DKA DKA lower extremity Reason for Visit Type 1 diabetes abel itus Diabetic ketoacidosis Hyponatremia Chief Complaint right arm and leg pa in Neuropathy pain, back pain DKA DKA DKA DKA DKA lower extremity back pain Reason for Visit Type 1 diabetes abel itus Diabetic ketoacidosis Hyponatremia Chief Complaint right arm and leg pa in Neuropathy pain, back pain DKA DKA DKA DKA DKA lower extremity back pain DKA, HEADACHE, CHRONIC ANTICOAGULATION Reason for Visit Type 1 diabetes abel itus Diabetic ketoacidosis Hyponatremia Chronic anticoagulation Diabetic keto-acidosis Headache History of below-knee amputation of left lower extremity History of peripheral arterial disease Chief Complaint right arm and leg pa in Neuropathy pain, back pain DKA DKA DKA DKA DKA lower extremity back pain DKA Reason for Visit Type 1 diabetes abel itus Diabetic ketoacidosis Hyponatremia Chronic anticoagulation Diabetic keto-acidosis DVT (deep venous thrombosis) Headache History of below-knee amputation of left lower extremity History of peripheral arterial disease Type 1 diabetes mellitus Chief Complaint right arm and leg pa in Neuropathy pain, back pain DKA DKA DKA DKA DKA lower extremity back pain DKA DKA HEADACHE Reason for Visit Type 1 diabetes abel itus Diabetic ketoacidosis Hyponatremia Chronic anticoagulation History of below-knee amputation of left lower extremity History of peripheral arterial disease Type 1 diabetes mellitus Diabetic keto-acidosis Chief Complaint DKA DKA DKA lower extremity back pain DKA DKA HEADACHE PAIN Reason for Visit Type 1 diabetes abel itus Diabetic ketoacidosis Hyponatremia Chronic anticoagulation History of below-knee amputation of left lower extremity History of peripheral arterial disease Type 1 diabetes mellitus Diabetic keto-acidosis Chief Complaint lower extremity back pain DKA DKA HEADACHE PAIN Diabetes Establish Care, Needs NPP Reason for Visit Chronic anticoagulat ion History of below-knee amputation of left lower extremity History of peripheral arterial disease Type 1 diabetes mellitus Diabetic keto-acidosis HTN (hypertension) Microalbuminuria Overweight Type 1 diabetes mellitus Anemia Depression with anxiety Establishing care with new doctor, encounter for Hyperlipidemia Menorrhagia Neuropathy Peripheral artery disease Recurrent vomiting HTN (hypertension) Type 1 diabetes mellitus Chief Complaint Admit Date MED FU July 15, 2024 7:5 7am 3 M FU August 15, 2024 2:41p m Reason for Visit Admit Date Depression with anxiety July 15, 2024 7:57am Hypothyroidism July 15, 2024 7:5 7am Neuropathy July 15, 2024 7:5 7am Type 1 diabetes mellitus July 15 7:57am Peripheral artery disease July 15 7:57am Non-compliance July 15, 2024 7:5 7am Screening for malignant neoplasm of cerv ix July 15, 2024 7:57am Mixed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
--- NOTE | 2024-12-25 23:00 | RAD_ITS ---
PROCEDURE: CHEST PA AND LATERAL 12/25/2024 REASON FOR EXAM: COUGH TECHNIQUE: Procedure Code: RADCXR Modality: DX Procedure: CHEST PA AND LATERAL COMPARISON: 11/02/2023. FINDINGS: The heart is normal in size. Left infrahilar infiltrate. No acute osseous abnormalities. RAD/Chest PA and Lateral IMPRESSION: Left infrahilar infiltrate. Reading Location: [id number]
[2024-12-25 23:02] VITALS: PULSE 97; RESP 16; O2SAT 96
--- NOTE | 2024-12-25 23:02 | RAD_ITS ---
PROCEDURE: TIBIA FIBULA 2 VIEWS 12/25/2024 REASON FOR EXAM: INJURY TECHNIQUE: Procedure Code: RADTF Modality: DX Procedure: TIBIA FIBULA 2 VIEWS Laterality: COMPARISON: 08/30/2024. FINDINGS: No evidence of acute fracture or dislocation. Soft tissues are unremarkable. RAD/Tibia & Fibula 2 Views IMPRESSION: No acute osseous abnormalities. Reading Location: [id number]
--- NOTE | 2024-12-25 23:02 | RAD_ITS ---
PROCEDURE: FOOT MIN 3 VIEWS 12/25/2024 REASON FOR EXAM: INJURY TECHNIQUE: Procedure Code: RADFO Modality: DX Procedure: FOOT MIN 3 VIEWS Laterality: FINDINGS: Small osseous fragment in the region of the 1st interphalangeal joint which may represent chronic degenerative changes or a fracture. Correlate with point tenderness. Mild degenerative changes throughout the foot. Superior calcaneal enthesophyte. RAD/Foot min 3 Views IMPRESSION: Osseous findings as above. Reading Location: [id number]
--- NOTE | 2024-12-25 23:04 | EX.ED.GENINJ ---
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 Chronic anticoagulation on Coumadin. History of diabetes also. States she has had a URI for about a week. Multiple family members had it also but says she is the worst. She is not getting better. No one was tested for COVID. Also states she recently fell and injured her right lower leg and foot wanted that x-rayed. No head injury. No LOC. Prior similar symptoms: Yes Recent Illness/Hospitalization: No PFSH [facility] Medical History Peripheral artery disease Xanthelasmatosis Abdominal pain Nausea, vomiting, and diarrhea DKA (diabetic ketoacidosis) Anemia Bipolar disorder Anxiety Depression GERD (gastroesophageal reflux disease) Former smoker Migraines Headache DVT (deep venous thrombosis) Chronic anticoagulation Type 1 diabetes mellitus Abnormal angiogram HTN (hypertension) Hyperlipidemia Home Medications ?Medication ?Instructions ?Recorded ?Last Taken ?Type aspirin 81 mg tablet,delayed 81 mg PO DAILY 30 days #30 tabs 03/14/23 Unknown Rx release (Adult Low Dose Aspirin) blood sugar diagnostic (OneTouch #100 ea 07/17/23 Unknown Rx Verio test strips) blood-glucose meter (OneTouch #1 ea 07/17/23 Unknown Rx Verio Flex Meter) lancets 30 gauge (Onetouch Delica #200 ea 07/17/23 Unknown Rx Safety Lancet) desvenlafaxine succinate 25 mg 25 mg PO DAILY #30 tabs 09/06/23 Unknown Rx tablet,extended release 24 hr (Pristiq) Guardian 4 Glucose Sensor #10 ea 11/02/23 Unknown Rx (blood-glucose sensor) blood-glucose transmitter #1 ea 11/15/23 Unknown Rx (Guardian 4 Transmitter device) blood pressure monitor #1 ea 07/15/24 Unknown Rx cilostazol 100 mg tablet 100 mg PO BID #60 tabs 07/15/24 Unknown Rx insulin lispro 200 unit/mL (3 mL) 350 unit (1.75 mL) subcut 08/15/24 Unknown Rx subcutaneous pen (Humalog KwikPen .continuous #52.5 mL U-200 Insulin) blood-glucose sensor (Guardian 4 #12 ea 09/30/24 Unknown Rx Glucose Sensor device) blood-glucose transmitter #1 ea 09/30/24 Unknown Rx (Guardian 4 Transmitter device) ondansetron 4 mg disintegrating 4 mg PO Q8H PRN nausea and 10/14/24 Unknown Rx tablet vomiting #30 tabs atorvastatin 40 mg tablet 40 mg PO DAILY 90 days #90 tabs 11/01/24 Unknown Rx fenofibrate nanocrystallized 145 145 mg PO DAILY #90 tabs 11/01/24 Unknown Rx mg tablet losartan 25 mg tablet 25 mg PO DAILY #90 tabs 11/01/24 Unknown Rx warfarin 10 mg tablet 10 mg PO DAILY #90 tabs 11/01/24 Unknown Rx levothyroxine 112 mcg capsule 112 mcg PO DAILY #30 caps 12/17/24 Unknown Rx pantoprazole 40 mg tablet,delayed 40 mg PO BID #60 tabs 12/17/24 Unknown Rx release (Protonix) azithromycin 250 mg tablet 250 mg PO DAILY 4 days #4 tabs 12/26/24 Unknown Rx (Zithromax) Allergy/AdvReac Type Severity Reaction Status Date / Time morphine Allergy Intermediate Rash Verified 12/25/24 21:10 orange Allergy Rash Verified 12/25/24 21:10 Family History Father Hypertension Cancer lung Diabetes Mother Diabetes Hypertension Cancer bladder Dementia Surgical History H/O section History of revascularization procedure of lower extremity Hx of cholecystectomy History of intravascular stent placement Tubal ligation status History of below-knee amputation of left lower extremity S/P BKA (below knee amputation) unilateral Social History household members: spouse and children housing: house current occupational status: disabled current occupation: for [employer] Smoking Status: Former smoker quit date: 04/03/19 pack-years: 20 Electronic Cigarette Use: not used alcohol intake: never substance use type: does not use what type of physical activity do you participate in: none seatbelt use: always do you feel safe at home: Yes ROS ROS ED ROS Narrative Cough. Nausea and vomiting. Right lower leg pain post fall. Constitutional Constitutional ED: Reports chills, fever(s) and subjective Eyes Eyes: Denies blurry vision ENT ENT ED: Denies ear pain, rhinorrhea or sore throat Cardiovascular Cardiovascular: Denies chest pain, palpitations, paroxysmal nocturnal dyspnea or racing heartbeat Respiratory/Chest Respiratory/Chest: Reports cough; Denies dyspnea, dyspnea on exertion or paroxysmal nocturnal dyspnea Gastrointestinal Gastrointestinal: Reports nausea and vomiting; Denies abdominal pain, constipation, diarrhea or melena Genitourinary Genitourinary ED: Denies dysuria or hematuria Musculoskeletal Musculoskeletal: Denies arthralgias Integumentary Denies abscess Neurologic Neurologic: Denies headache(s) Psychiatric Psychiatric: Denies anxiety or depression Endocrine Endocrinology: Denies cold intolerance Hematologic/Lymphatic Hematologic/Lymphatic: Denies easy bleeding, easy bruising or lymphadenopathy Allergic/Immunologic Allergic/Immunologic ED: Denies mouth swelling, tongue swelling or urticaria EXAM Physical Exam Narrative Exam Narrative: 39-year-old female sitting upright in bed. Vital signs stable afebrile. Pulse ox 100% on room air no signs hypoxia. H EENT exam pupils round react light. TMs normal. Moist mucous membranes. Posterior pharynx unremarkable. No trouble swallowing or breathing. No stridor or drooling. Neck nontender no lymphadenopathy. No meningismus. Back nontender. Lungs coarse breath sounds bilaterally. No rales or rhonchi. Few scattered expiratory wheeze. Heart regular rhythm rate about 100 no murmur. Chest wall ribs nontender. Abdomen soft nontender. No peritoneal signs. Moving all 4 extremities. Neurovascularly intact. Tenderness right mid tib-fib no ecchymosis or bruising. No crepitance. Normal DP pulse. Normal dorsi plantarflexion. Tender right foot. No deformity. Hip nontender. Normal range of motion right hip, right knee and ankle. Dorsi plantarflexion intact. Left lower extremity prosthesis. Upper extremities nontender. Normal range of motion. Neurologically patient is awake alert. Answering questions following commands. Const Vital Signs: 12/25/24 21:10 12/25/24 23:02 Temperature 98.9 F Temperature Source Oral Pulse Rate 101 H 97 Respiratory Rate 22 H 16 Blood Pressure 136/74 H Blood Pressure Mean 94 Pulse Ox 100 96 Oxygen Delivery Method Room Air Room Air Positive well nourished and well developed; Negative for obese, cachectic, contractures or unkempt General Appearance ED: well developed and NAD; Negative for unkempt, cachectic or contractures Nutritional Appearance: Negative for cachectic or obese HEENT atraumatic; Negative for trauma or tenderness Eyes PERRL and EOMs intact bilaterally Neck full ROM General: Negative for tenderness Chest Wall inspection of chest normal and palpation of chest normal Resp normal respiratory effort and No clear to auscultation bilaterally Resp Narrative: Few scattered expiratory wheezes. Coarse breath sounds Auscultation: wheezes Cardio regular rhythm, S1 normal heart sound, S2 normal heart sound and no murmurs Rate: regular rate GI normal to inspection, nondistended, normoactive bowel sounds, non-tender, non-distended and no masses Inspection: Negative for abdominal distention Auscultation: normoactive bowel sounds Palpation: soft; Negative for tender, guarding or rebound tenderness present Back/Spine normal to inspection and no thoracic nor lumbar tenderness Extremity normal to inspection and full ROM Extremity Narrative: Haylie left lower extremity prosthesis. Tenderness right mid tib-fib. No swelling. No deformity. Right foot neurovascularly intact. Normal DP pulse. Normal dorsi plantarflexion normal touch sensation. Tenderness to the top of the foot no deformity. General Extremety ED: Yes tenderness; Negative for deformity or edema General Extremity: Negative for deformity or edema Neuro oriented x3, CN's II-XII intact bilaterally, moves all extremities and no focal motor deficits Sensorium / Orientation: alert, oriented to person, oriented to place and oriented to time Motor Exam: strength 5/5 throughout Psych mental status grossly normal and thought process normal Appearance: Negative for unkempt Skin no rashes or lesions noted, no wounds, skin turgor normal and no jaundice Rashes: No rashes noted Trauma: Negative for abrasion Wounds: Negative for wounds noted MDM MDM MDM Narrative Medical decision making narrative: 39-year-old female URI symptoms. Chest x-ray being obtained to rule out pneumonia. He is a week and her symptoms this could be COVID but we discussed that she is deferring having that tested for. It would not change her treatment course. Also she had a recent fall and injured her right lower leg and foot x-rays of those to be obtained. There is no deformity. Lower extremity and foot are neurovascularly intact. Normal range of motion. No deformity. Repeat exam patient is doing well around 12 PM. We went over x-ray results. She may have an early pneumonia or bronchitis. She will be started on Zithromax [id number]. First dose given in the ER. 1 [place] for pain. Otherwise Tylenol at home. Follow-up with your doctor ensure she is improving or return if worse. History & Record Review Discussion w/independent historian: Patient Radiography Chest X-Ray - ED: 2 View and Read by ED Physician Diagnostic Testing: Clinical Impression(s) from Imaging Studies Chest X-Ray 12/25/24 23:00 IMPRESSION: Left infrahilar infiltrate. Reading Location: [facility] Foot X-Ray 12/25/24 23:02 IMPRESSION: Osseous findings as above. Reading Location: [facility] Tibia/Fibula X-Ray 12/25/24 23:02 IMPRESSION: No acute osseous abnormalities. Reading Location: [facility] Chest x-ray, AP and lateral, 2 views, interpreted by myself shows possible left lower lobe infiltrate versus bronchitis. Also read by the radiologist agrees. Right tib-fib x-ray, 2 views, interpreted by myself shows no acute fracture. Also interpreted radiologist agrees. Right foot x-ray, 3 views, turbid by myself shows no acute fracture. Chronic bony changes. But no acute. Discharge Plan Triage Chief Complaint: Cold Sx Other Complaint: Back ED Provider: Jared Condon Dx/Rx/DC Orders Clinical Impression: Pneumonia, Fall, Contusion of leg, right, Chronic anticoagulation Instructions: ED Pneumonia (Adult) Prescriptions: New azithromycin [Zithromax] 250 mg tablet 250 mg PO DAILY 4 Days Qty: 4 0RF Rx Instructions: start on day 2 of therapy No Action desvenlafaxine succinate [Pristiq] 25 mg tablet extended release 24 hr 25 mg PO DAILY Qty: 30 1RF cilostazol 100 mg tablet 100 mg PO BID Qty: 60 2RF (DME) blood pressure monitor Kit See Rx Instructions .Route Qty: 1 0RF Rx Instructions: As directed warfarin 10 mg tablet 10 mg PO DAILY Qty: 90 1RF atorvastatin 40 mg tablet 40 mg PO DAILY 90 Days Qty: 90 2RF fenofibrate nanocrystallized 145 mg tablet 145 mg PO DAILY Qty: 90 0RF losartan 25 mg tablet 25 mg PO DAILY Qty: 90 0RF aspirin [Adult Low Dose Aspirin] 81 mg tablet,delayed release (DR/EC) 81 mg PO DAILY 30 Days Qty: 30 0RF (DME) blood-glucose meter [OneTouch Verio Flex meter] Misc See Rx Instructions .Route Qty: 1 0RF Rx Instructions: As directed (DME) OneTouch Verio test strips Strip See Rx Instructions .Route Qty: 100 5RF Rx Instructions: TID (DME) lancets [Onetouch Delica Safety Lancet] 30 gauge misc See Rx Instructions .Route Qty: 200 5RF Rx Instructions: TID (DME) Guardian 4 Glucose Sensor Device See Rx Instructions .Route Qty: 10 3RF Rx Instructions: as directed (DME) Guardian 4 Transmitter Device See Rx Instructions .Route Qty: 1 0RF Rx Instructions: As directed Humalog KwikPen Insulin 200 unit/mL (3 mL) insulin pen 350 unit subcut .continuous Qty: 52.5 5RF Rx Instructions: via insulin pump, patient has been instructed how to withdraw insulin for pump and will not be using the pen dosing function. (DME) Guardian 4 Glucose Sensor Device See Rx Instructions .Route Qty: 12 1RF Rx Instructions: 1 sensor q 7 days (DME) Guardian 4 Transmitter Device See Rx Instructions .Route Qty: 1 0RF Rx Instructions: As directed ondansetron 4 mg tablet,disintegrating 4 mg PO Q8H PRN (Reason: nausea and vomiting) Qty: 30 0RF pantoprazole [Protonix] 40 mg tablet,delayed release (DR/EC) 40 mg PO BID Qty: 60 0RF levothyroxine 112 mcg capsule 112 mcg PO DAILY Qty: 30 0RF Primary Care Provider: Autumn Whitt Referrals: Autumn Whitt MD [Primary Care Provider, Internal Medicine] - 1 Week if not improving Activity Restrictions/Additional Instructions: Ice also areas on your leg. Tylenol for pain. You have a small pneumonia or bronchitis in the left lung. The antibiotic Zithromax. 1 pill a day starting tomorrow lunch. First dose given in the ER. Once you are done with the antibiotic have your Coumadin level rechecked because antibiotic can affect your Coumadin level. Follow-up with your doctor if not improving or return if worse. Print Language: Yakut Disposition Disposition: Home, Self Care
[2024-12-26] MEDS: HYDROcodone Bitartrate/Apap 5/325 Tablet PO (00:09)
[2024-12-26 00:11] VITALS: BP 129/79; PULSE 82; RESP 16; TEMP 36.7; O2SAT 95
== END 2024-12-26 00:13 | disposition home or self-care (01) ==
PROVIDERS: Emergency Provider Emergency Medicine; PCP Internal Medicine; Visit Provider Emergency Medicine
DX: J18.9 Pneumonia, unspecified organism (principal); Z89.512 Acquired absence of left leg below knee; E10.9 Type 1 diabetes mellitus without complications; I10 Essential (primary) hypertension; S80.11XA Contusion of right lower leg, initial encounter; W19.XXXA Unspecified fall, initial encounter; E78.2 Mixed hyperlipidemia; Z79.01 Long term (current) use of anticoagulants; Z79.82 Long term (current) use of aspirin; Z79.899 Other long term (current) drug therapy; Z86.718 Personal history of other venous thrombosis and embolism; Z87.891 Personal history of nicotine dependence
CPT/HCPCS: 71046; 73590; 73630; 99285